=== PATIENT | female | born 1975 | race Caucasian/White ===

== ENCOUNTER 2023-05-07 01:18 | Emergency (ER) | payer OTHER, SELFPAY ==
[2023-05-07] VITALS (8 sets, daily range): BP systolic 128–138; BP diastolic 60–84; PULSE 69–90; RESP 14–22; TEMP 36.3; O2SAT 90–100
--- NOTE | ~2023-05-07 | CT_ITS ---
EXAMINATION: CT abdomen pelvis w con DATE: 05/07/2023 02:21 INDICATION: Generalized abdominal pain. TECHNIQUE: Computed tomography (CT) of the abdomen and pelvis was performed with 100 mL Omnipaque 350 intravenous contrast. Automated exposure control and iterative reconstruction technique were employe d. The dose-length product was 1641.37 mGy-cm. COMPARISON: CT abdomen and pelvis 03/28/23 FINDINGS: The visualized portions of the lung bases demonstrate mild atelectasis. No pleural effusion . The heart size is normal. No pericardial effusion. There is diffuse hepatic steatosis. The gallblad george, spleen, pancreas, adrenal glands, and right kidney are normal. There is a 3 mm stone in left kid afshin. There is an umbilical hernia containing fat. There is a right inguinal hernia containing fat. Th ere are no dilated loops of bowel. The appendix is normal. There are no pathologically enlarged lymph nodes. There is no free intraperitoneal fluid. IMPRESSION: 1. Diffuse hepatic steatosis. 2. Umbilical hernia containing fat. 3. Right inguinal hernia containing fat. Reviewed, dictated and finalized at location E.
[2023-05-07 01:49] LABS: Basophils Absolute Auto 0.1 K/mm3 (0.0-0.1); Basophils Percent Auto 1.2 % (0.2-1.2); Eosinophils Absolute Auto 0.2 K/mm3 (0-0.3); Eosinophils Percent Auto 3.3 % (0-4.4); Hematocrit 45.7 % (37.0-47.0); Hemoglobin 14.8 g/dL (12.0-15.0); Immature Granulocyte Absolute 0.03 K/mm3 (0.00-0.031); Immature Granulocyte Percent A 0.5 % (0-0.5); Lymphocytes Absolute Auto 1.85 K/mm3 (0.9-3.2); Lymphocytes Percent Auto 27.9 % (18.3-44.2); Mean Corpuscular HGB Conc 32.4 g/dl (32-36); Mean Corpuscular Hemoglobin 28.7 pg (26-34); Mean Corpuscular Volume 88.6 fl (80-100); Mean Platelet Volume 10.2 fl (7.4-10.4); Monocytes Absolute Auto 0.5 K/mm3 (0.1-0.6); Monocytes Percent Auto 6.8 % (2.6-8.5); Neutrophils Percent Auto 60.3 % (45.5-73.1); Platelet Count Result 280 k/mm3 (150-375); Red Blood Count 5.16 M/mm3 (4.2-5.4); Red Cell Distribution Width 12.5 % (11.5-14.5); White Blood Count 6.6 K/mm3 (4.5-10.0)
[2023-05-07 01:52] LABS: Appearance Urine Clear (Clear); Bilirubin Urine Negative (Negative); Blood Urine Negative (Negative); Color Urine Yellow (Yellow); Glucose Urine UA Negative (Negative); Ketones Urine Negative (Negative); Leukocyte Esterase Ur Negative LEU/UL (Negative); Nitrate Urine Negative (Negative); Protein Urine Negative (Negative); Specific Grav Ur 1.016 (1.001-1.035); Urobilinogen Urine 0.2 mg/dL (<2.0); pH Urine 5.5 (5.0-9.0)
[2023-05-07] MEDS: MORPHINE SULFATE (*CRX) 4 MG/ML INJ IV PUSH (01:54)
[2023-05-07] MEDS: SODIUM CHLORIDE 0.9% IV 1,000 ML 999 ML IV CONT (01:54)
[2023-05-07] MEDS: PROCHLORPERAZINE EDISYLATE 10 MG/2 ML VIAL IV PUSH (01:55)
[2023-05-07 01:59] LABS: Alanine Aminotransferase 73 U/L (6-35); Albumin Level 4.6 g/dL (3.5-5.1); Alkaline Phosphatase 70 U/L (38-126); Anion Gap 7 mmol/L (8-16); Aspartate Amino Transferase 66 U/L (14-36); Bilirubin,Total 0.5 mg/dL (0.2-1.3); Blood Urea Nitrogen 16 mg/dL (7-17); Calcium 9.6 mg/dL (8.4-10.2); Carbon Dioxide 32 mmol/L (22-30); Chloride 100 mmol/L (98-107); Estimated CRCL calculation 80 ml/min; Estimated Glomerular Filt Rate 60; Glucose 122 mg/dL (65-110); Lipase 206 U/L (23-300); Potassium 4.2 mmol/L (3.4-5.0); Sodium 139 mmol/L (137-145)
[2023-05-07 02:16] LABS: Add Urine Microscopic? NO
--- NOTE | 2023-05-07 02:40 | ED.GENADULT ---
HPI - General Adult General Chief complaint: Abdominal Pain Stated complaint: N/V, abd pain Time Seen by Provider: 05/07/23 01:37 History of Present Illness HPI narrative: Patient 47-year-old female who presents the emergency department with chief complaint of abdominal pain. Patient reports that she started having a discomfort feeling in the right side of her abdomen reports it radiates to her back patient reports she had nausea and vomiting reports has not been able to keep anything down. Patient reports its been ongoing for about a week. Patient denies fever patient does report she has prior history of [employer] surgeries and has had 2 C-sections. Related Data Allergies Allergy/AdvReac Type Severity Reaction Status Date / Time divalproex sodium Allergy Wheezing Verified 05/07/23 01:52 [From Depakote] pregabalin Allergy Other Verified 05/07/23 01:52 amoxicillin AdvReac Hives Verified 05/07/23 01:52 gabapentin AdvReac Nausea and Verified 05/07/23 01:52 Vomiting Review of Systems Review of Systems: A 10 system review of systems was completed on the patient and is negative except for what is stated in the HPI. Nursing and ancillary documentation was reviewed. [facility] Past Medical History Medical History Rectocele Surgical History Surgical History H/O hysterectomy with oophorectomy Social History Social History Smoking status: Never smoker Exam Narrative: GENERAL: Well-appearing, well-nourished, and in no acute distress. HEAD: Normocephalic, atraumatic. EYES: PERRLA and EOMI. ENT: Nares clear, no rhinorrhea or epistaxis. Mucous membranes moist. NECK: Supple. CHEST: Clear to auscultation. No respiratory distress. HEART: Regular rate and rhythm. No murmur heard. Normal peripheral pulses. ABDOMEN: Soft, tenderness to palpation in the right side of the abdomen with right upper quadrant and right lower quadrant, nondistended, normal active bowel sounds. EXTREMITIES: Normal range of motion. No edema. SKIN: Warm, dry, no rash. NEURO: No focal deficits. Alert and oriented x3. PSYCH: Normal mood and affect. Course Vital Signs Vital signs: Vital Signs Temperature 36.3 C L 05/07/23 01:24 Pulse Rate 90 05/07/23 01:24 Respiratory Rate 18 05/07/23 01:24 Blood Pressure 138/84 05/07/23 01:24 Pulse Oximetry 100 05/07/23 01:24 Oxygen Delivery Room Air 05/07/23 01:24 Temperature 36.3 C L 05/07/23 01:24 Pulse Rate 69 05/07/23 02:32 Respiratory Rate 14 05/07/23 02:32 Blood Pressure 134/83 05/07/23 01:36 Pulse Oximetry 90 05/07/23 02:32 Oxygen Delivery Room Air 05/07/23 01:24 Medical Decision Making MDM Narrative Medical decision making narrative: Differential diagnosis include bowel obstruction, gastroenteritis, gastritis. Laboratory studies were obtained and the patient which showed a white count of 6.6 electrolytes were within normal limits AST and ALT were slightly elevated at 66 and 73 respectively lipase was 206 urinalysis showed no evidence of UTI. CT scan of the abdomen pelvis showed IMPRESSION: 1. Diffuse hepatic steatosis. 2. Umbilical hernia containing fat. 3. Right inguinal hernia containing fat Vital Signs Vital Signs: Vital Signs Temperature 36.3 C L 05/07/23 01:24 Pulse Rate 90 05/07/23 01:24 Respiratory Rate 18 05/07/23 01:24 Blood Pressure 138/84 05/07/23 01:24 Pulse Oximetry 100 05/07/23 01:24 Oxygen Delivery Room Air 05/07/23 01:24 Temperature 36.3 C L 05/07/23 01:24 Pulse Rate 69 05/07/23 02:32 Respiratory Rate 14 05/07/23 02:32 Blood Pressure 134/83 05/07/23 01:36 Pulse Oximetry 90 05/07/23 02:32 Oxygen Delivery Room Air 05/07/23 01:24 Lab Data 05/07/23 01:37 05/07/23 01:37
== END 2023-05-07 06:02 | disposition home or self-care (01) ==
PROVIDERS: Emergency Provider Emergency Medicine
DX: R10.84 Generalized abdominal pain (principal); R11.2 Nausea with vomiting, unspecified; Z90.710 Acquired absence of both cervix and uterus; K76.0 Fatty (change of) liver, not elsewhere classified; K42.9 Umbilical hernia without obstruction or gangrene; K40.90 Unilateral inguinal hernia, without obstruction or gangrene, not specified as recurrent
CPT/HCPCS: 36415; 74177; 80053; 81003; 81025; 83690; 85025; 96361; 96374; 96375; 99284; J0780; J2270; J7030; Q9967

== ENCOUNTER 2023-06-30 11:52 | Emergency (ER) | payer OTHER, SELFPAY ==
[2023-06-30] VITALS (21 sets, daily range): BP systolic 103–122; BP diastolic 58–77; PULSE 61–88; RESP 15–36; TEMP 36.3–36.8; O2SAT 94–100
--- NOTE | ~2023-06-30 | CT_ITS ---
EXAMINATION: CTA chest PE abdomen pel DATE: 06/30/2023 15:50 INDICATION: Chest pain and vomiting post gastric bypass procedure TECHNIQUE: Computed tomography (CT) pulmonary angiogram of the chest was performed with 100 mL Omnipa que-350 intravenous contrast. Additional 3D reconstructions utilizing coronal maximum intensity proje ction (MIP) were performed. CT of the abdomen and pelvis was performed with intravenous contrast util izing the same contrast bolus following a short delay. Automated exposure control and iterative recon struction technique were employed. The dose-length product was 2292.10 mGy-cm. COMPARISON: CT abdomen and pelvis dated 05/07/2023 FINDINGS: Chest: No pulmonary embolism. Mild discoid atelectasis in the lingula, right upper and left lower lobes. No pneumonia, pulmonary edema, pleural effusion or pneumothorax. Heart size is normal. No pericardial ef fusion. Thoracic aorta is normal in caliber with no dissection. No pathologically enlarged thoracic l ymphadenopathy. Mild thoracic spondylosis. Abdomen/pelvis: Postoperative change of relatively recent retrocolic Macarena-en-Y gastric bypass procedure including str anding in the subcutaneous fat along likely laparoscopy port tracks. Diffuse hepatic steatosis with m ore focal fat at the ligamentum teres. Gallbladder, pancreas, spleen, right kidney and bilateral adre nal glands are normal. 3 mm nonobstructing left renal stone. Normal appendix. No abnormal bowel wall thickening or obstruction. The uterus is not identified and has likely been surgically resected. Blad george is normal. Small fat-containing right inguinal hernia. Interval repair of the prior fat-containin g umbilical hernia. No intra-abdominal abscess or free intraperitoneal gas or fluid. No pathologicall y enlarged abdominal or pelvic lymphadenopathy. Moderate facet osteoarthritis on the right at L4-L5. Otherwise mild multilevel lumbar facet osteoarthritis. IMPRESSION: 1. Mild scattered bilateral discoid atelectasis. No pulmonary embolism or other acute cardiopulmonary disease. 2. Postoperative changes of recent Macarena-en-Y gastric bypass procedure. 3. 3 mm nonobstructing left renal stone. 4. Diffuse hepatic steatosis. 2. Small fat-containing right inguinal hernia. Reviewed, dictated and finalized at location A.
[2023-06-30 12:49] LABS: Appearance Urine Clear (Clear); Bilirubin Urine Negative (Negative); Blood Urine Negative (Negative); Color Urine Dark Yellow (Yellow); Glucose Urine UA Negative (Negative); Ketones Urine Trace mg/dL (Negative); Leukocyte Esterase Ur Negative LEU/UL (Negative); Nitrate Urine Negative (Negative); Protein Urine Negative (Negative); Specific Grav Ur 1.024 (1.001-1.035); Urobilinogen Urine 0.2 mg/dL (<2.0); pH Urine 5.5 (5.0-9.0)
[2023-06-30 12:54] LABS: Basophils Absolute Auto 0.1 K/mm3 (0.0-0.1); Basophils Percent Auto 1.2 % (0.2-1.2); Eosinophils Absolute Auto 0.3 K/mm3 (0-0.3); Eosinophils Percent Auto 4.2 % (0-4.4); Hematocrit 46.1 % (37.0-47.0); Hemoglobin 14.4 g/dL (12.0-15.0); Immature Granulocyte Absolute 0.01 K/mm3 (0.00-0.031); Immature Granulocyte Percent A 0.2 % (0-0.5); Immature Platelet Fraction Pct 6.9 % (0.9-11.2); Lymphocytes Absolute Auto 1.85 K/mm3 (0.9-3.2); Mean Corpuscular HGB Conc 31.2 g/dl (32-36); Mean Corpuscular Hemoglobin 27.5 pg (26-34); Mean Corpuscular Volume 88.1 fl (80-100); Mean Platelet Volume 11.8 fl (7.4-10.4); Monocytes Absolute Auto 0.4 K/mm3 (0.1-0.6); Monocytes Percent Auto 7.2 % (2.6-8.5); Neutrophils Absolute Auto 3.4 K/mm3 (1.3-6.7); Neutrophils Percent Auto 56.2 % (45.5-73.1); Platelet Count Result 298 k/mm3 (150-375); Red Blood Count 5.23 M/mm3 (4.2-5.4)
[2023-06-30 13:00] LABS: Alanine Aminotransferase 50 U/L (6-35); Albumin Level 4.5 g/dL (3.5-5.1); Alkaline Phosphatase 76 U/L (38-126); Anion Gap 16 mmol/L (8-16); Aspartate Amino Transferase 58 U/L (14-36); Bilirubin,Total 0.7 mg/dL (0.2-1.3); Blood Urea Nitrogen 17 mg/dL (7-17); Calcium 9.8 mg/dL (8.4-10.2); Carbon Dioxide 22 mmol/L (22-30); Chloride 103 mmol/L (98-107); Estimated CRCL calculation 77 ml/min; Estimated Glomerular Filt Rate 60; Glucose 111 mg/dL (65-110); Lipase 309 U/L (23-300); Potassium 4.2 mmol/L (3.4-5.0); Sodium 141 mmol/L (137-145)
[2023-06-30 13:03] LABS: Add Urine Microscopic? NO
[2023-06-30] MEDS: LACTATED RINGERS 1,000 ML 999 ML IV CONT (14:01)
[2023-06-30] MEDS: ONDANSETRON INJ 4 MG/2 ML VIAL IV PUSH (14:01)
[2023-06-30] MEDS: HYDROmorphone HCL INJ (*CRX) 1 MG/ML SYR 0.5 MG IV PUSH (16:15)
--- NOTE | 2023-06-30 16:17 | ED.NAVMDI ---
HPI - Nausea/Vomiting/Diarrhea General Chief complaint: Nausea/Vomiting/Diarrhea Stated complaint: vomiting x 4 days Time Seen by Provider: 06/30/23 13:36 Source: patient, RN notes reviewed and old records reviewed Mode of arrival: ambulatory Limitations: no limitations History of Present Illness HPI Narrative: This is a 47 year old female who presents for evaluation of nausea, vomiting and abdominal pain s/p gastric bypass and hiatal hernia repair. She reports she had gastric bypass and hiatal hernia repair [address] Rankin at [place]. She has been taking multiple vitamins since her surgery. She was taking oxycodone 5 mg but she ran out 5 days ago. She reports for the past 4 days and has been having nausea and vomiting. She states she can not tolerate liquids or purred food. She also reports upper abdominal pain and pain into her chest. She reports she had fever a few days ago. She has been having left side abdominal pain since her surgery 3 weeks ago. She reports her incision sites are healing well and she denies any drainage or redness. Related Data Allergies Allergy/AdvReac Type Severity Reaction Status Date / Time divalproex sodium Allergy Wheezing Verified 05/07/23 01:52 [From Depakote] pregabalin Allergy Other Verified 05/07/23 01:52 amoxicillin AdvReac Hives Verified 05/07/23 01:52 gabapentin AdvReac Nausea and Verified 05/07/23 01:52 Vomiting PMFSH Past Medical History Medical History (Updated 07/01/23 @ 00:00 by Background Daemdaren) Rectocele Surgical History Surgical History (Updated 07/01/23 @ 00:00 by Background Daemon) H/O hysterectomy with oophorectomy S/P gastric bypass Social History Social History Smoking status: Never smoker Exam Const: General: no acute distress and alert Nutritional Appearance: obese Orientation/consciousness: patient oriented x3 HENMT: Head: normal to inspection Face and sinus: normal facial exam Mouth: Yes Normal oral and palatal mucosa present, Yes lip normal and Yes moist mucous membranes Eyes: EOM: EOMs intact bilaterally Chest: Chest palpation & inspection: normal inspection of the chest Resp: Effort & Inspection: normal respiratory effort Auscultation: clear to auscultation bilaterally Cardio: Rate: regular rate Rhythm: regular rhythm Heart sounds: no murmurs GI: GI Palp: Yes Soft to palpation, Yes Tenderness to palpation present (GI) (TTP, left upper abdomen), No Guarding due to palpation present (GI) and No Rigid due to palpation Auscultation: normal bowel sounds Other: healing laparoscopic port incisions, no purulent drainage or erythema Back/Spine/Pelvis: Back: no CVA tenderness Skin: General skin exam: normal color Wounds: wounds noted Neuro: General: patient oriented x3 and moves all extremities Extrem: General: normal to inspection Psych: Mental Status: mental status grossly normal Affect: normal affect Attitude: cooperative Course Reevaluation(s) Reevaluation #1: I discussed with patient my conversation with surgery. She will go back to liquid diet. She has been able tolerate water. She states she does not think she needs to be transferred or admitted at this time. She wants to go home. She will need prescription of zofran. Date: 06/30/23 Time: 17:46 Consultations Consultation #1: I Discussed case with DR. Zayas with [facility] remote control mirror installer for Dr. Rankin. He states nausea is not uncommon. He recommends watching patient a little long and back patient off to stage 1 bariatric diet, liquids, no added sugar. If patient unable to tolerate will transfer for IV hydration Date: 06/30/23 Time: 17:03 Vital Signs Vital signs: Vital Signs Temperature 97.4 F L 06/30/23 11:59 Pulse Rate 88 06/30/23 11:59 Respiratory Rate 16 06/30/23 11:59 Blood Pressure 120/77 06/30/23 11:59 Pulse Oximetry 100 06/30/23 11:59 Oxygen Delivery Room Air 0
== END 2023-06-30 18:17 | disposition home or self-care (01) ==
PROVIDERS: Emergency Medicine; Emergency Provider General Practice
DX: R11.2 Nausea with vomiting, unspecified (principal); Z98.84 Bariatric surgery status
CPT/HCPCS: 36415; 71275; 74177; 80053; 81003; 83690; 85025; 85055; 96361; 96374; 96375; 99284; J1170; J2405; J7120; Q9967

== ENCOUNTER 2023-08-11 20:44 | Emergency (ER) | payer OTHER, SELFPAY ==
--- NOTE | ~2023-08-11 | CT_ITS ---
EXAMINATION: CT abdomen pelvis w con DATE: 08/12/2023 02:40 INDICATION: Recent gastric bypass surgery. Nausea and vomiting. Abdomen pain. TECHNIQUE: Computed tomography (CT) of the abdomen and pelvis was performed without intravenous contr ast. The dose-length product was 1489.93 mGy-cm. Automated exposure control and iterative reconstruct ion technique were employed. COMPARISON: CT dated 06/30/2023. FINDINGS: Lung bases are unremarkable. No significant pleural or pericardial effusion. Heart size nor mal. Fatty infiltration of the liver. There are changes of previous gastric bypass surgery. The splee n, pancreas, adrenal glands and right kidney are unremarkable. There is 3 mm nonobstructing left veto l stone. Bladder is unremarkable. Nonobstructive bowel gas pattern. No evidence for diverticulitis. N o free air or free fluid. Gallbladder is present. No significant vascular abnormality. No lymphadenop athy. Small fat-containing right inguinal hernia. IMPRESSION: 1. No acute abdominal abnormality. Reviewed, dictated and finalized at location A.
[2023-08-11 20:58] VITALS: BP 122/96; PULSE 114; RESP 16; TEMP 36.6; O2SAT 100
[2023-08-11 21:16] LABS: Basophils Absolute Auto 0.1 K/mm3 (0.0-0.1); Basophils Percent Auto 0.9 % (0.2-1.2); Eosinophils Absolute Auto 0.3 K/mm3 (0-0.3); Eosinophils Percent Auto 4.1 % (0-4.4); Hemoglobin 14.8 g/dL (12.0-15.0); Immature Granulocyte Absolute 0.02 K/mm3 (0.00-0.031); Immature Granulocyte Percent A 0.2 % (0-0.5); Lymphocytes Absolute Auto 2.83 K/mm3 (0.9-3.2); Lymphocytes Percent Auto 35.2 % (18.3-44.2); Mean Corpuscular HGB Conc 31.5 g/dl (32-36); Mean Corpuscular Hemoglobin 27.5 pg (26-34); Mean Corpuscular Volume 87.4 fl (80-100); Mean Platelet Volume 10.9 fl (7.4-10.4); Monocytes Absolute Auto 0.7 K/mm3 (0.1-0.6); Monocytes Percent Auto 8.6 % (2.6-8.5); Neutrophils Absolute Auto 4.1 K/mm3 (1.3-6.7); Platelet Count Result 275 k/mm3 (150-375); Red Blood Count 5.38 M/mm3 (4.2-5.4); Red Cell Distribution Width 14.5 % (11.5-14.5)
[2023-08-11 21:30] LABS: Alanine Aminotransferase 141 U/L (6-35); Albumin Level 4.4 g/dL (3.5-5.1); Alkaline Phosphatase 97 U/L (38-126); Anion Gap 10 mmol/L (8-16); Aspartate Amino Transferase 138 U/L (14-36); Bilirubin,Total 0.6 mg/dL (0.2-1.3); Blood Urea Nitrogen 12 mg/dL (7-17); Calcium 9.5 mg/dL (8.4-10.2); Carbon Dioxide 19 mmol/L (22-30); Chloride 108 mmol/L (98-107); Estimated CRCL calculation 80 ml/min; Estimated Glomerular Filt Rate > 60; Glucose 126 mg/dL (65-110); Lipase 178 U/L (23-300); Potassium 3.9 mmol/L (3.4-5.0); Sodium 137 mmol/L (137-145)
[2023-08-11 22:05] LABS: Appearance Urine Cloudy (Clear); Bacteria Urine Rare /hpf; Bilirubin Urine 2+ (Negative); Blood Urine 3+ (Negative); Color Urine Dark Yellow (Yellow); Glucose Urine UA Negative (Negative); Ketones Urine Trace mg/dL (Negative); Leukocyte Esterase Ur Trace LEU/UL (Negative); Need Manual Microscopic Reviewed; Nitrate Urine Negative (Negative); Protein Urine 1+ mg/dL (Negative); RBC Urine 51-100 /hpf (0-2); Specific Grav Ur 1.025 (1.001-1.035); Squamous Epithelial Cell Urine Occasional /hpf (Few)
[2023-08-11 22:06] LABS: Add Urine Microscopic? YES
[2023-08-12] VITALS (20 sets, daily range): BP systolic 103–132; BP diastolic 62–92; PULSE 87–111; RESP 11–20; TEMP 36.9; O2SAT 93–98
[2023-08-12 01:04] LABS: Magnesium 1.8 mg/dL (1.6-2.3)
[2023-08-12 01:13] LABS: Pregnancy On Board Control Positive; Urine Pregnancy Test Negative
[2023-08-12] MEDS: MORPHINE SULFATE (*CRX) 4 MG/ML INJ IV PUSH (01:29)
[2023-08-12] MEDS: SODIUM CHLORIDE 0.9% IV 1,000 ML 999 ML IV CONT (01:29)
[2023-08-12] MEDS: ONDANSETRON INJ 4 MG/2 ML VIAL IV PUSH (01:29)
--- NOTE | 2023-08-12 02:40 | ED.GENADULT ---
HPI - General Adult General Chief complaint: Nausea/Vomiting/Diarrhea Stated complaint: v/d/abd pain sp gastric bypass Time Seen by Provider: 08/12/23 00:43 History of Present Illness HPI narrative: Patient is a 48-year-old female who presents the emergency department with chief complaint of abdominal pain nausea vomiting. The patient reports she had a gastric bypass approximately 8 weeks ago and had a stricture that was ballooned patient reports having vomiting and diarrhea has not really been eating and drinking much and had about 10 episodes of vomiting. Patient reports she has diffuse abdominal discomfort Related Data Allergies Allergy/AdvReac Type Severity Reaction Status Date / Time divalproex sodium Allergy Wheezing Verified 05/07/23 01:52 [From Depakote] pregabalin Allergy Other Verified 08/11/23 21:04 amoxicillin AdvReac Hives Verified 08/11/23 21:04 gabapentin AdvReac Nausea and Verified 08/11/23 21:04 Vomiting Review of Systems Review of Systems: A 10 system review of systems was completed on the patient and is negative except for what is stated in the HPI. Nursing and ancillary documentation was reviewed. PMFSH Past Medical History Medical History Rectocele Surgical History Surgical History H/O hysterectomy with oophorectomy S/P gastric bypass Social History Social History Smoking status: Never smoker Exam Narrative: GENERAL: Well-appearing, well-nourished, and in no acute distress. HEAD: Normocephalic, atraumatic. EYES: PERRLA and EOMI. ENT: Nares clear, no rhinorrhea or epistaxis. Mucous membranes moist. NECK: Supple. CHEST: Clear to auscultation. No respiratory distress. HEART: Regular rate and rhythm. No murmur heard. Normal peripheral pulses. ABDOMEN: Soft, diffusely tender to palpation, nondistended, normal active bowel sounds. EXTREMITIES: Normal range of motion. No edema. SKIN: Warm, dry, no rash. NEURO: No focal deficits. Alert and oriented x3. PSYCH: Normal mood and affect. Course Vital Signs Vital signs: Vital Signs Temperature 36.6 C 08/11/23 20:58 Pulse Rate 114 H 08/11/23 20:58 Respiratory Rate 16 08/11/23 20:58 Blood Pressure 122/96 H 08/11/23 20:58 Pulse Oximetry 100 08/11/23 20:58 Oxygen Delivery Room Air 08/11/23 20:58 Temperature 36.9 C 08/12/23 00:49 Pulse Rate 87 08/12/23 07:08 Respiratory Rate 14 08/12/23 07:08 Blood Pressure 106/62 08/12/23 07:08 Pulse Oximetry 96 08/12/23 07:08 Oxygen Delivery Room Air 08/11/23 20:58 Medical Decision Making MDM Narrative Medical decision making narrative: Differential diagnosis includes dehydration, esophageal stricture, bowel obstruction, Patient received IV hydration in the emergency department laboratory studies showed CMP with CO2 of 19 potassium was 3.9 glucose was 126 liver enzymes are slightly elevated with an AST of 138 ALT of 141 bilirubin was normal at 0.6 urinalysis showed trace ketones 6-[address] scan of the abdomen pelvis showed no evidence of obstructive process. The patient received hydration and antiemetics in the emergency department. Case was discussed with Dr. Castro of the bariatric service at [place]. Recommended having the patient be on clear liquids as she has a appointment scheduled in 3 days for endoscopy at [place]. Vital Signs Vital Signs: Vital Signs Temperature 36.6 C 08/11/23 20:58 Pulse Rate 114 H 08/11/23 20:58 Respiratory Rate 16 08/11/23 20:58 Blood Pressure 122/96 H 08/11/23 20:58 Pulse Oximetry 100 08/11/23 20:58 Oxygen Delivery Room Air 08/11/23 20:58 Temperature 36.9 C 08/12/23 00:49 Pulse Rate 87 08/12/23 07:08 Respiratory Rate 14 08/12/23 07:08 Blood Pressure 106/62 08/12/23
[2023-08-12] MEDS: LORazepam INJ (*CRX) 2 MG/ML VIAL 1 MG IV PUSH (05:38)
[2023-08-12] MEDS: MAGNESIUM SULF 1 GM/D5W 100 ML 1 GM/100 ML BAG IVPB (05:38)
== END 2023-08-12 07:33 | disposition home or self-care (01) ==
PROVIDERS: Emergency Provider Emergency Medicine
DX: R11.2 Nausea with vomiting, unspecified (principal); Z98.84 Bariatric surgery status
CPT/HCPCS: 36415; 74177; 80053; 81001; 81025; 83690; 83735; 85025; 87086; 96361; 96365; 96375; 99284; J2060; J2270; J2405; J3475; J7030; Q9967

== ENCOUNTER 2023-09-04 23:05 | Day surgery (SDC) | payer OTHER, SELFPAY ==
--- NOTE | ~2023-09-04 | CT_ITS ---
Non-contrast CT scan of the Abdomen and Pelvis Clinical indication: Left flank pain Technique: 2.5 mm axial scans were obtained through the abdomen and pelvis without intravenous or or al contrast. Dose reduction technique was used on this scan by utilizing automated exposure control a nd iterative reconstruction technique. The dose-length product (DLP) was 1567.62 mGy-cm. COMPARISON: 08/12/2023 Findings: Images through the lung bases reveal no abnormalities. There is a 3-4 mm stone at the very distal left ureter, with mild left hydroureteronephrosis. No righ t renal or right ureteral stone. No right hydronephrosis. Probable fatty infiltration of liver noted. The spleen, pancreas, gallbladder, and adrenals appear no rmal. There is no aortic aneurysm. There is no evidence of bowel obstruction. There is evidence of prior bariatric surgery. Images through the pelvis were performed. There is no evidence of ascites or lymphadenopathy. Urinary bladder unremarkable. Small fat-containing right inguinal hernia present. Patient is post hysterecto my. No adnexal mass seen. Impression: 3-4 mm distal left ureteral stone with mild left hydroureteronephrosis. Diffuse fatty infiltration of liver. Reviewed, dictated and finalized at [facility]. [employer] Impression: 3-4 mm distal left ureteral stone with mild left hydroureteronephrosis. Diffuse fatty infiltration of liver.
--- NOTE | ~2023-09-04 | XR_ITS ---
EXAMINATION: XR retrograde pyelo w/stent LT DATE: 09/05/2023 8:40 [employer] INDICATION: LEFT SIDE STONE . TECHNIQUE: 5 fluoroscopic images of the abdomen were obtained during left retrograde pyelography with stent performed by the surgeon. I was not present in the operating room. Fluoroscopy exposure time w as 12.4 seconds. Air Kerma 6.57 mGy. DAP 0.11120 mGym2. COMPARISON: CT abdomen pelvis same date FINDINGS: Wire access accomplished to the mid pole calyces. There is mild hydronephrosis on the left. No obstru cting stone visualized. Post Stent images not provided. IMPRESSION: Fluoroscopic documentation of left retrograde pyelography with stent placement. Please refer to the o perative note for complete procedural details . Reviewed, dictated and finalized at location K. [employer] IMPRESSION: Fluoroscopic documentation of left retrograde pyelography with stent placement. Please refer to the operative note for complete procedural details .
[2023-09-04 23:31] VITALS: BP 135/109; PULSE 125; RESP 18; TEMP 36.2; O2SAT 98
[2023-09-05] VITALS (13 sets, daily range): BP systolic 102–141; BP diastolic 54–92; PULSE 81–134; RESP 12–20; TEMP 36.1–36.9; O2SAT 94–100
--- NOTE | 2023-09-05 01:48 | ED.ABDPAIN ---
HPI - Abdominal Pain General Chief Complaint: Urogenital-Female <Sarah Lindsay PA-C - Last Filed: 09/12/23 19:35> Stated Complaint: left flank pain <JAMILA Barnard Last Filed: 09/12/23 19:35> Time Seen by Provider: 09/05/23 01:13 <JAMILA Barnard Last Filed: 09/12/23 19:35> Source: patient <JAMILA Barnard Last Filed: 09/12/23 19:35> Mode of arrival: ambulatory <JAMILA Barnard Last Filed: 09/12/23 19:35> Limitations: no limitations <JAMILA Barnard Last Filed: 09/12/23 19:35> History of Present Illness HPI narrative: This is a 48 year old female that presents to the ER for left flank pain. Ongoing since last night. Associated with nausea and vomiting. Also reports dysuria. Denies fever, or hematuria. <Sarah Lindsay PA-C - Last Filed: 09/12/23 19:35> Related Data Home Medications: Home Medications Medication Instructions Recorded Confirmed calcium citrate 200 mg 1 tablet PO DAILY 09/05/23 09/05/23 calcium-vitamin D3 6.25 mcg (250 unit) tablet cyanocobalamin (vitamin B-12) 1,000 mcg IM MONTHLY 09/05/23 09/05/23 1,000 mcg/mL injection solution cyclobenzaprine 10 mg tablet 10 mg PO DAILY 09/05/23 09/05/23 docusate sodium 100 mg capsule 100 mg PO DAILY PRN Constipation 09/05/23 09/05/23 ferrous sulfate 325 mg (65 mg 325 mg PO DAILY 09/05/23 09/05/23 iron) tablet (FeroSul) promethazine 25 mg tablet 25 mg PO DAILY PRN Nausea 09/05/23 09/05/23 ursodiol 300 mg capsule 300 mg PO DAILY 09/05/23 09/05/23 <JAMILA Barnard Last Filed: 09/12/23 19:35> Allergies/Adverse Reactions: Allergies Allergy/AdvReac Type Severity Reaction Status Date / Time amoxicillin Allergy Hives Verified 09/05/23 07:49 divalproex sodium Allergy Wheezing Verified 09/04/23 23:30 [From Depakote] gabapentin AdvReac Nausea and Verified 09/04/23 23:30 Vomiting pregabalin AdvReac severe Verified 09/05/23 07:49 migraine <Sarah Lindsay PA-C - Last Filed: 09/12/23 19:35> Review of Systems Review of Systems: CONSTITUTIONAL: Denies fever GASTROINTESTINAL: Reports abdominal pain, nausea, vomiting. Denies diarrhea. GENITOURINARY: Reports dysuria. Denies hematuria. <Sarah Lindsay PA-C - Last Filed: 09/12/23 19:35> All systems reviewed & are unremarkable except as noted in HPI and below <Sarah Lindsay PA-C - Last Filed: 09/12/23 19:35> PMFSH Past Medical History Medical History: Medical History (Updated 09/05/23 @ 07:36 by Dusty Williamson MD) History of renal stone Morbid obesity Rectocele <Sarah Lindsay PA-C - Last Filed: 09/12/23 19:35> Surgical History Surgical History: Surgical History H/O hysterectomy with oophorectomy History of section History of gastric bypass Hx of cystoscopy S/P gastric bypass <Sarah Lindsay PA-C - Last Filed: 09/12/23 19:35> Social History Social History: Social History Smoking status: Never smoker <Sarah Lindsay PA-C - Last Filed: 09/12/23 19:35> Exam Narrative: GENERAL: Uncomfortable, well-nourished HEAD: Normocephalic, atraumatic. EYES: EOMI. CHEST: Clear to auscultation. No respiratory distress. No wheezes rales or rhonchi HEART: Regular rate and rhythm. No murmur heard. Normal peripheral pulses. ABDOMEN: Soft, nontender, nondistended, normal active bowel sounds. No CVA tenderness EXTREMITIES: Normal range of motion. No edema. SKIN: Warm, dry, no rash. NEURO: No focal deficits. Alert and oriented x3. PSYCH: Normal mood and affect <Sarah Lindsay PA-C - Last Filed: 09/12/23 19:35> Course Course Emergency Course: Patient updated on workup thus far, care taken over by Dr. Orozco at shift change <Sarah Lindsay PA-C - Last Filed: 09/12/23 19:35> Vital Signs Vital signs: Vital Signs
[2023-09-05] MEDS: MORPHINE SULFATE (*CRX) 4 MG/ML INJ IV PUSH (01:56)
[2023-09-05] MEDS: SODIUM CHLORIDE 0.9% IV 1,000 ML 999 ML IV CONT (01:56)
[2023-09-05] MEDS: ONDANSETRON INJ 4 MG/2 ML VIAL IV PUSH ×2 (01:56→07:43)
[2023-09-05 02:07] LABS: Basophils Absolute Auto 0.1 K/mm3 (0.0-0.1); Basophils Percent Auto 0.9 % (0.2-1.2); Eosinophils Absolute Auto 0.2 K/mm3 (0-0.3); Eosinophils Percent Auto 2.1 % (0-4.4); Hematocrit 46.4 % (37.0-47.0); Immature Granulocyte Absolute 0.02 K/mm3 (0.00-0.031); Immature Granulocyte Percent A 0.2 % (0-0.5); Lymphocytes Absolute Auto 2.14 K/mm3 (0.9-3.2); Lymphocytes Percent Auto 23.9 % (18.3-44.2); Mean Corpuscular HGB Conc 32.3 g/dl (32-36); Mean Corpuscular Hemoglobin 27.9 pg (26-34); Mean Corpuscular Volume 86.2 fl (80-100); Mean Platelet Volume 10.8 fl (7.4-10.4); Monocytes Absolute Auto 0.6 K/mm3 (0.1-0.6); Monocytes Percent Auto 6.7 % (2.6-8.5); Neutrophils Absolute Auto 5.9 K/mm3 (1.3-6.7); Neutrophils Percent Auto 66.2 % (45.5-73.1); Platelet Count Result 276 k/mm3 (150-375); Red Blood Count 5.38 M/mm3 (4.2-5.4); Red Cell Distribution Width 14.9 % (11.5-14.5)
[2023-09-05 02:15] LABS: Alanine Aminotransferase 88 U/L (6-35); Albumin Level 4.7 g/dL (3.5-5.1); Alkaline Phosphatase 90 U/L (38-126); Anion Gap 14 mmol/L (8-16); Aspartate Amino Transferase 75 U/L (14-36); Bilirubin,Total 0.6 mg/dL (0.2-1.3); Blood Urea Nitrogen 15 mg/dL (7-17); Carbon Dioxide 21 mmol/L (22-30); Chloride 106 mmol/L (98-107); Estimated Glomerular Filt Rate 59; Glucose 143 mg/dL (65-110); Lipase 170 U/L (23-300); Sodium 141 mmol/L (137-145)
[2023-09-05 02:28] LABS: Add Urine Microscopic? YES; Appearance Urine Cloudy (Clear); Bacteria Urine 2+ /hpf; Bilirubin Urine Negative (Negative); Blood Urine 2+ (Negative); Calcium Oxalate Crystals Urine Present /hpf; Color Urine Dark Yellow (Yellow); Glucose Urine UA Negative (Negative); Ketones Urine Trace mg/dL (Negative); Leukocyte Esterase Ur Trace LEU/UL (Negative); Need Manual Microscopic Reviewed; Nitrate Urine Negative (Negative); Protein Urine 1+ mg/dL (Negative); RBC Urine >100 /hpf (0-2); Specific Grav Ur 1.024 (1.001-1.035); Squamous Epithelial Cell Urine Few /hpf (Few); pH Urine 5.5 (5.0-9.0)
[2023-09-05] MEDS: HYDROmorphone HCL INJ (*CRX) 1 MG/ML SYR 0.5 MG IV PUSH (02:50)
--- NOTE | 2023-09-05 03:09 | PC.NURSE ---
Pt was pacing around the room and rolling around in the stretcher. Pt's IV was ripped out in the midst of this. New IV placed. Care ongoing.
[2023-09-05] MEDS: KETOROLAC 30 MG/ML VIAL (*BKC) IV PUSH (03:45)
--- NOTE | 2023-09-05 04:46 | PC.NURSE ---
Pt complaining of 8/10 pain, MD aware. No further orders. Care ongoing.
[2023-09-05] MEDS: HYDROmorphone HCL INJ (*CRX) 1 MG/ML SYR IV PUSH (05:23)
[2023-09-05] MEDS: diphenhydrAMINE HCl INJ 50 MG/ML VIAL 25 MG IV PUSH (05:23)
[2023-09-05] MEDS: TAMSULOSIN HCL 0.4 MG CAPSULE PO (06:32)
--- NOTE | 2023-09-05 07:20 | PM.IMHP ---
H&P: HPI History of Present Illness Date/Time: 09/05/23 07:20 Chief Complaint: 3mm left uvj calculus with hydro and pain Narrative: 48 yr old female presented to ER with left flank pain, n/v. No fever. FOund to have a 3 mm left uvj calculus with hydro. Given her significant pain will proceed iwth cystoscopy, left retrograde, left ureteroscopy with stone extraction , stent, possible laser. Review of Systems Review of Systems: All systems reviewed & are unremarkable except as noted in HPI and below [facility] Past Medical History Medical History Rectocele Surgical History Surgical History H/O hysterectomy with oophorectomy S/P gastric bypass Social History Social History Smoking status: Never smoker Meds Home Medications and Allergies Home Medications Medication Instructions Recorded Confirmed Type ondansetron 4 mg disintegrating 4 mg PO Q6H PRN nausea and 06/30/23 Rx tablet vomiting #20 tabs Allergies Allergy/AdvReac Type Severity Reaction Status Date / Time divalproex sodium Allergy Wheezing Verified 09/04/23 23:30 [From Depakote] pregabalin Allergy Other Verified 09/04/23 23:30 amoxicillin AdvReac Hives Verified 09/04/23 23:30 gabapentin AdvReac Nausea and Verified 09/04/23 23:30 Vomiting Vital Signs Vital Signs - 24 hr 09/04/23 23:31 09/05/23 05:00 09/05/23 06:36 Temperature 36.2 C L Pulse Rate 125 H 134 H 125 H Respiratory Rate 18 18 15 Blood Pressure 135/109 H 128/92 H 141/83 H Pulse Oximetry 98 97 98 Oxygen Delivery Room Air Exam Const: General: cooperative; No comfortable HENMT: Head: normal to inspection Neck: Neck: normal visual inspection Resp: Effort & Inspection: normal respiratory effort Cardio: Rate: tachycardic GI: Inspection: normal to inspection H&P: Results Labs Labs: Short CBC 09/05/23 Range/Units 01:57 WBC 9.0 (4.5-10.0) K/mm3 Hgb 15.0 (12.0-15.0) g/dL Hct 46.4 (37.0-47.0) % Plt Count 276 (150-375) k/mm3 BMP 09/05/23 01:57 Sodium 141 Potassium 4.0 Chloride 106 Carbon Dioxide 21 L BUN 15 Creatinine 1.00 Glucose 143 H Calcium 10.0 Liver Function 09/05/23 Range/Units 01:57 Total Bilirubin 0.6 (0.2-1.3) mg/dL AST 75 H (14-36) U/L ALT 88 H (6-35) U/L Alkaline Phosphatase 90 (38-126) U/L Albumin 4.7 (3.5-5.1) g/dL Urine 09/05/23 Range/Units 01:57 Urine Color Dark yellow (Yellow) Urine Appearance Cloudy H (Clear) Urine pH 5.5 (5.0-9.0) Ur Specific [place] 1.024 (1.001-1.035) Urine Protein 1+ H (Negative) mg/dL Urine Glucose (UA) Negative (Negative) mg/dL Assessment and Plan Assessment and plan (1) Left ureteral calculus: Code(s): N20.1 - Calculus of ureter Status: Acute Assessment and Plan: Proceed with cystoscopy, left retrograde, left ureteroscopy with stone extraction, stent , possible laser. (2) Intractable back pain: Code(s): M54.9 - Dorsalgia, unspecified Status: Acute Assessment and Plan: most likely secondary to above
--- NOTE | 2023-09-05 07:26 | WPDHPUPDATE1 ---
History and Physical Update Update Date/Time: 09/05/23 07:26 History and Physical has been reviewed, including an updated exam of the patient. There are NO changes in the patient's condition. Risks, benefits, and alternatives have been discussed and questions answered. Patient agrees to proceed with procedure.
[2023-09-05] MEDS: LACTATED RINGERS 1,000 ML 30 ML IV CONT (07:35)
--- NOTE | 2023-09-05 07:35 | WPDANESEPPF ---
Anes - Initial Pre Proc Eval Procedure: Operation Date: 09/05/23 15:00 Proposed Procedures p Cystoscopy,Left Retrograde Pyelogram,Left Ureteroscopy,Left Stone Extraction,Possible Holmium Laser,Possible Stent Placement - Corbin Gonsales MD Date/Time: 09/05/23 07:35 Surgeon: Corbin Gonsales MD Pre Op Diagnosis: left flank pain Patient Data Age: 48 Gender: F Height: Weight: 110.45 kg Last Vital Signs Temp 36.2 C L 09/04/23 23:31 Pulse 125 H 09/05/23 06:36 Resp 15 09/05/23 06:36 BP 141/83 H 09/05/23 06:36 Pulse Ox 98 09/05/23 06:36 O2 Del Method Room Air 09/04/23 23:31 Allergies Allergy/AdvReac Type Severity Reaction Status Date / Time divalproex sodium Allergy Wheezing Verified 09/04/23 23:30 [From Depakote] pregabalin Allergy Other Verified 09/04/23 23:30 amoxicillin AdvReac Hives Verified 09/04/23 23:30 gabapentin AdvReac Nausea and Verified 09/04/23 23:30 Vomiting Home Medications Medication Instructions Recorded Confirmed Type ondansetron 4 mg disintegrating 4 mg PO Q6H PRN nausea and 06/30/23 Rx tablet vomiting #20 tabs Laboratory Tests 09/05/23 01:57 WBC 9.0 K/mm3 (4.5-10.0) RBC 5.38 M/mm3 (4.2-5.4) Hgb 15.0 g/dL (12.0-15.0) Hct 46.4 % (37.0-47.0) MCV 86.2 fl (80-100) MCH 27.9 pg (26-34) MCHC 32.3 g/dl (32-36) RDW 14.9 H % (11.5-14.5) Plt Count 276 k/mm3 (150-375) MPV 10.8 H fl (7.4-10.4) Immature Gran % (Auto) 0.2 % (0-0.5) Neut % (Auto) 66.2 % (45.5-73.1) Lymph % (Auto) 23.9 % (18.3-44.2) [place] % (Auto) 6.7 % (2.6-8.5) Eos % (Auto) 2.1 % (0-4.4) Baso % (Auto) 0.9 % (0.2-1.2) Lymph # (Auto) 2.14 K/mm3 (0.9-3.2) [place] # (Auto) 0.6 K/mm3 (0.1-0.6) Eos # (Auto) 0.2 K/mm3 (0-0.3) Baso # (Auto) 0.1 K/mm3 (0.0-0.1) Abs Immat Gran (auto) 0.02 K/mm3 (0.00-0.031) Absolute Neuts (auto) 5.9 K/mm3 (1.3-6.7) Absolute Nucleated RBC 0.0 K/mm3 (0.0-0.012) Nucleated RBC % 0.0 % (0.0-0.2) Sodium 141 mmol/L (137-145) Potassium 4.0 mmol/L (3.4-5.0) Chloride 106 mmol/L (98-107) Carbon Dioxide 21 L mmol/L (22-30) Anion Gap 14 mmol/L (8-16) BUN 15 mg/dL (7-17) Creatinine 1.00 mg/dL (0.7-1.0) Estim Creat Clear Calc Not Reportable Estimated GFR 59 (59 - ) Glucose 143 H mg/dL (65-110) Calcium 10.0 mg/dL (8.4-10.2) Total Bilirubin 0.6 mg/dL (0.2-1.3) AST 75 H U/L (14-36) ALT 88 H U/L (6-35) Alkaline Phosphatase 90 U/L (38-126) Total Protein 8.0 g/dL (6.3-8.2) Albumin 4.7 g/dL (3.5-5.1) Lipase 170 U/L (23-300) Urine Color Dark yellow (Yellow) Urine Appearance Cloudy H (Clear) Urine pH 5.5 (5.0-9.0) Ur Specific [place] 1.024 (1.001-1.035) Urine Protein 1+ H mg/dL (Negative) Urine Glucose (UA) Negative mg/dL (Negative) Urine Ketones Trace H mg/dL (Negative) Ur Blood (Man) 2+ H (Negative) Urine Nitrate Negative (Negative) Urine Bilirubin Negative (Negative) Urine Urobilinogen 1.0 mg/dL (<2.0) Add Ur Microanalysis Reviewed Leukocyte Esterase Rfl Trace H BEV/UL (Negative) Urine RBC >100 H /hpf (0-2) Urine WBC 6-10 H /hpf Ur Squamous Epith Cells Few /hpf (Few) Calcium Oxalate Crystal Present /hpf (None) Urine Bacteria 2+ H /hpf Urine Casts 3-5 Patient hx anesthesia problems: none Family hx anesthesia problems: none Results Review: All pre-operative results and documents have been reviewed as part of the pre-operative evaluation. [facility] Past Medical History Medical History (Updated 09/05/23 @ 07:36 by Dusty Williamson MD) History of renal stone Morbid obesity Rectocele Surgical History Surgical History H/O hysterectomy with ooph
[2023-09-05] MEDS: SCOPOLAMINE 1.5 MG PATCH TRANSDERM (07:45)
[2023-09-05] MEDS: fentaNYL CITRATE INJ (*CRX) 100 MCG/2 ML VIAL 25 MCG IV PUSH ×6 (07:56→09:47)
[2023-09-05] MEDS: LIDOCAINE HCL 2% GEL UROJET 10 ML PKG MUCOUS MEM (08:55)
--- NOTE | 2023-09-05 09:04 | W.PM.PROC2 ---
Procedure Note - Detailed Date of Procedure 09/05/23 Pre-op Diagnosis left flank pain Post-op Diagnosis Same Procedure Performed Cystoscopy, left retrograde pyelogram, left ureteroscopy with stone extraction, left ureteral stent placement 4.8 [place] contour Surgeon Corbin Gonsales MD Anesthesia General Description of Procedure Patient is taken to the operative suite correctly identified. Once anesthesia was obtained she was placed in dorsal lithotomy position and prepped and draped usual sterile fashion. Twenty-two [place] scope was inserted the bladder. There were no tumors noted. Left ureteral orifice was cannulated with a guidewire. I dilated the orifice with an 8/10 dilator. Rigid ureteral scope was inserted. Stone was visualized in the distal ureter. Using an escape basket this was retrieved and sent for analysis. Reinspection revealed no residual stone but some edema in the intramural ureter. Pyelogram was then performed to confirm placement of the stent. 4.8 [place] contour stent was then placed with the proximal end coiled in the left renal pelvis and the distal in the bladder. 2% viscous lidocaine was inserted into urethra patient is taken recovery stable condition. She will be discharged home with pain meds and antibiotic. Follow up next week for stent removal. This completes dictation. Please send a copy of this to my office. Estimated Blood Loss 0 Drains Yes Packing No Pathology Yes Complications No immediate complications Condition Stable Disposition PACU
[2023-09-05] MEDS: oxyCODONE HCL (*CRX) 5 MG TAB IR PO (10:51)
[2023-09-05] MEDS: PROCHLORPERAZINE EDISYLATE 10 MG/2 ML VIAL IV PUSH (11:00)
--- NOTE | 2023-09-05 13:38 | SUR.PHASEII ---
disregaurd charting from 1150.
== END 2023-09-05 11:19 | disposition home or self-care (01) ==
LOC: ANHED 09-05 06:41 → ANHSURGERY 09-05 06:42
PROVIDERS: Physician Assistant; Emergency Provider Emergency Medicine; Visit Provider Urology
PROC: (CPT 52352; principal; 2023-09-05 15:00)
DX: N13.2 Hydronephrosis with renal and ureteral calculous obstruction (principal); Z98.84 Bariatric surgery status; E66.01 Morbid (severe) obesity due to excess calories
CPT/HCPCS: 52332; 52352; 36415; 74176; 74420; 80053; 81001; 81025; 82365; 83690; 85025; 87086; 88300; 96361; 96365; 96375; 96376; 99285; A9270; C1758; C1769; C2617; J0330; J0696; J0780; J1100; J1170; J1200; J1885; J2250; J2270; J2405; J2704; J3010; J7030; J7120; Q9966

== ENCOUNTER 2023-10-13 12:34 | Outpatient (CLI) | payer OTHER, SELFPAY ==
--- NOTE | ~2023-10-13 | US_ITS ---
EXAMINATION: US retroperitoneal limited DATE: 10/13/2023 13:05 INDICATION: History of left ureteral stone TECHNIQUE: Multiple grayscale and Doppler ultrasound images of the kidneys were obtained. COMPARISON: CT, 09/05/2023 FINDINGS: The right kidney measures 10.7 x 4.1 x 5.5 cm. The left kidney measures 11.1 x 5.0 x 4.5 cm . The kidneys demonstrate normal parenchymal echogenicity. No urolithiasis is identified. There is no hydronephrosis. The bladder is normal. IMPRESSION: 1. Normal kidneys without hydronephrosis. Reviewed, dictated and finalized at location B. [employer]
== END 2023-10-13 12:35 | disposition home or self-care (01) ==
PROVIDERS: Visit Provider Urology
DX: N20.1 Calculus of ureter (principal)
CPT/HCPCS: 76775

== ENCOUNTER 2023-10-29 17:44 | Emergency (ER) | payer OTHER, SELFPAY ==
--- NOTE | ~2023-10-29 | CT_ITS ---
CT of the Abdomen and Pelvis: Indication: Abdominal pain Technique: 2.5 mm axial scans were obtained through the abdomen and pelvis following intravenous adm inistration of 100 cc of Omnipaque 350. Dose reduction technique was used on this scan by utilizing a utomated exposure control and iterative reconstruction technique. The dose-length product (DLP) was 1 744.37 mGy-cm. COMPARISON: 09/05/2023 Findings: Scans through the lung bases are unremarkable. The liver, spleen, pancreas, gallbladder, adrenals and kidneys are within normal limits. No evidence of aortic aneurysm. No lymphadenopathy. No bowel obstruction or bowel wall thickening. There is evidence of prior gastric bypass surgery. The re is no evidence to suggest acute appendicitis. Very small fat-containing umbilical hernia present. Images through the pelvis were performed. Urinary bladder unremarkable. Patient is status post hyster ectomy. No pelvic mass seen. No ascites. Impression: No acute abnormality. Very small fat-containing umbilical hernia. Reviewed, dictated and finalized at [facility]. WINDER [employer]ENDER Impression: No acute abnormality. Very small fat-containing umbilical hernia.
[2023-10-29 17:50] VITALS: BP 143/105; PULSE 55; RESP 18; TEMP 36.6; O2SAT 98
--- NOTE | 2023-10-29 18:43 | ED.ABDPAIN ---
HPI - Abdominal Pain General Chief Complaint: Abdominal Pain Stated Complaint: abd pain Time Seen by Provider: 10/29/23 18:41 Source: patient Mode of arrival: ambulatory Limitations: no limitations History of Present Illness HPI narrative: This is a 48-year-old postmenopausal (total hysterectomy) female presents with 10 days of LUQ abdominal pain. Patient is 4 months status post gastric bypass and 2 months status post lithotripsy and stent placement. She did notify her primary care physician and her surgeon who performed a gastric bypass and was told to drink more water. She denies the pain radiating in particular although is having some back pain. Last oral intake was a protein bar this morning as well as some milk with sugar free [place]. She denies any urinary symptoms such as hematuria, dysuria, urgency, or frequency. Her last bowel movement was last night and she denies any diarrhea or bloody stools however she feels that her stool output has been diminished as has her degree of flatus. She denies any vaginal discharge. She has been belching today and has been nauseated but not vomiting. She presented to the ED since she became diaphoretic and has been shaking uncontrollably. She is on a multivitamin after gastric bypass as well as nortriptyline. She denies any alcohol or recreational drug use. Related Data Home Medications Medication Instructions Recorded Confirmed calcium citrate 200 mg 1 tablet PO DAILY 09/05/23 09/05/23 calcium-vitamin D3 6.25 mcg (250 unit) tablet cyanocobalamin (vitamin B-12) 1,000 mcg IM MONTHLY 09/05/23 09/05/23 1,000 mcg/mL injection solution cyclobenzaprine 10 mg tablet 10 mg PO DAILY 09/05/23 09/05/23 docusate sodium 100 mg capsule 100 mg PO DAILY PRN Constipation 09/05/23 09/05/23 ferrous sulfate 325 mg (65 mg 325 mg PO DAILY 09/05/23 09/05/23 iron) tablet (FeroSul) promethazine 25 mg tablet 25 mg PO DAILY PRN Nausea 09/05/23 09/05/23 ursodiol 300 mg capsule 300 mg PO DAILY 09/05/23 09/05/23 Allergies Allergy/AdvReac Type Severity Reaction Status Date / Time amoxicillin Allergy Hives Verified 09/05/23 07:49 divalproex sodium Allergy Wheezing Verified 09/04/23 23:30 [From Depakote] gabapentin AdvReac Nausea and Verified 09/04/23 23:30 Vomiting pregabalin AdvReac severe Verified 09/05/23 07:49 migraine PMFSH Past Medical History Medical History (Updated 10/29/23 @ 23:50 by Brooklynn Segura MD) History of renal stone Morbid obesity Rectocele Surgical History Surgical History H/O hysterectomy with oophorectomy History of section History of gastric bypass Hx of cystoscopy S/P gastric bypass Social History Social History (Updated 10/29/23 @ 22:35 by Brooklynn Segura MD) Smoking status: Never smoker Alcohol use details: denies Substance use type: does not use Exam Narrative: GENERAL: Well-appearing, well-nourished, appears shaky/tremulous HEAD: Normocephalic, atraumatic. EYES: Non injected, non icteric ENT: Nares clear, no rhinorrhea or epistaxis. Tongue fasiculations. NECK: Supple. CHEST: Speaking in full sentences. No respiratory distress. HEART: Regular rate and rhythm during exam ABDOMEN: Soft, nondistended. Well healed surgical site in LUQ. TTP at epigastrium and LUQ without rigidity. EXTREMITIES: Normal range of motion. No edema. SKIN: Warm, dry, no rash. NEURO: No focal deficits. Alert and oriented x3. PSYCH: Appears anxious. Course Vital Signs Vital signs: Vital Signs Temperature 98 F 10/29/23 17:50 Pulse Rate 55 L 10/29/23 17:50 Respiratory Rate 18 10/29/23 17:50 Blood Pressure 143/105 H 10/29/23 17:50 Pulse Oximetry 98 10/29/23 17:50 Oxygen Delivery Room Air 10/29/23 17:50 Temperature 97.6 F 10/29/23 22:47 Pulse Rate 81 10/30/23 00:23 Respiratory Rate 15 10/30/23 00:23 Blood Pressure 102/60 01
[2023-10-29 19:07] LABS: Basophils Absolute Auto 0.1 K/mm3 (0.0-0.1); Basophils Percent Auto 0.9 % (0.2-1.2); Eosinophils Absolute Auto 0.2 K/mm3 (0-0.3); Eosinophils Percent Auto 2.2 % (0-4.4); Hematocrit 47.8 % (37.0-47.0); Hemoglobin 15.4 g/dL (12.0-15.0); Immature Granulocyte Absolute 0.02 K/mm3 (0.00-0.031); Immature Granulocyte Percent A 0.3 % (0-0.5); Lymphocytes Percent Auto 33.2 % (18.3-44.2); Mean Corpuscular HGB Conc 32.2 g/dl (32-36); Mean Corpuscular Hemoglobin 28.4 pg (26-34); Monocytes Absolute Auto 0.5 K/mm3 (0.1-0.6); Monocytes Percent Auto 5.9 % (2.6-8.5); Neutrophils Absolute Auto 4.5 K/mm3 (1.3-6.7); Neutrophils Percent Auto 57.5 % (45.5-73.1); Platelet Count Result 328 k/mm3 (150-375); Red Blood Count 5.43 M/mm3 (4.2-5.4); Red Cell Distribution Width 14.6 % (11.5-14.5); White Blood Count 7.8 K/mm3 (4.5-10.0)
[2023-10-29 19:16] VITALS: BP 107/60; PULSE 121; RESP 20; TEMP 37.3; O2SAT 99
[2023-10-29 19:24] LABS: Lactic Acid Reflex 2.8 mmol/L (0.7-2.0)
[2023-10-29 19:25] LABS: Alanine Aminotransferase 42 U/L (6-35); Albumin Level 4.5 g/dL (3.5-5.1); Alkaline Phosphatase 109 U/L (38-126); Anion Gap 13 mmol/L (8-16); Aspartate Amino Transferase 43 U/L (14-36); Bilirubin,Total 0.7 mg/dL (0.2-1.3); Blood Urea Nitrogen 15 mg/dL (7-17); Calcium 10.4 mg/dL (8.4-10.2); Carbon Dioxide 24 mmol/L (22-30); Chloride 103 mmol/L (98-107); Estimated CRCL calculation 77 ml/min; Estimated Glomerular Filt Rate > 60; Glucose 137 mg/dL (65-110); Lipase 145 U/L (23-300); Sodium 140 mmol/L (137-145)
--- NOTE | 2023-10-29 19:26 | ECG_ITS ---
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
[2023-10-29] MEDS: SODIUM CHLORIDE 0.9% IV 1,000 ML 999 ML IV CONT ×2 (20:11→22:44)
[2023-10-29 21:15] LABS: Thyroid Stimulating Hormone 0.938 uIU/mL (0.465-4.680)
[2023-10-29] MEDS: MORPHINE SULFATE (*CRX) 4 MG/ML INJ IV PUSH (21:44)
[2023-10-29 22:05] LABS: Reflex Lactic Acid Yes or No Add Lactic
[2023-10-29] MEDS: HALOPERIDOL LACTATE 5 MG/ML VIAL 2.5 MG IV PUSH (22:20)
[2023-10-29] MEDS: diphenhydrAMINE HCl INJ 50 MG/ML VIAL 25 MG IV PUSH (22:43)
[2023-10-29 22:47] VITALS: BP 111/88; PULSE 84; RESP 15; TEMP 36.4; O2SAT 98
[2023-10-29 23:57] LABS: Appearance Urine Clear (Clear); Bacteria Urine 1+ /hpf; Bilirubin Urine Negative (Negative); Blood Urine Negative (Negative); Color Urine Yellow (Yellow); Glucose Urine UA Negative (Negative); Ketones Urine 2+ mg/dL (Negative); Leukocyte Esterase Ur Negative LEU/UL (Negative); Need Manual Microscopic Reviewed; Nitrate Urine Negative (Negative); Non Pathogenic Casts 0-2; Protein Urine Trace mg/dL (Negative); Squamous Epithelial Cell Urine Occasional /hpf (Few); WBC Urine 0-5 /hpf; pH Urine 8.5 (5.0-9.0)
[2023-10-29 23:58] LABS: Add Urine Microscopic? YES; Specific Grav Ur 1.072 (1.001-1.035)
[2023-10-30 00:01] LABS: Lactic Acid 1.1 mmol/L (0.7-2.0)
[2023-10-30] MEDS: DICYCLOMINE HCL 10 MG CAPSULE PO (00:01)
[2023-10-30 00:10] LABS: Barbiturate Screen Urine Negative (Negative); Benzodiazepines Screen Urine Positive (Negative)
[2023-10-30 00:13] LABS: Amphetamine Screen Urine Negative (Negative); Cannabinoid Screen Urine Negative (Negative); Cocaine Screen Urine Negative (Negative); Methadone Screen Urine Negative (Negative); Opiate Screen Urine Positive (Negative); Phencyclidine Screen Urine Negative (Negative)
[2023-10-30 00:23] VITALS: BP 102/60; PULSE 81; RESP 15; O2SAT 96
== END 2023-10-30 00:25 | disposition home or self-care (01) ==
PROVIDERS: Emergency Provider Student in an Organized Health Care Education/Training Program
DX: R10.12 Left upper quadrant pain (principal); R74.01 Elevation of levels of liver transaminase levels; E66.01 Morbid (severe) obesity due to excess calories; Z68.41 Body mass index [BMI] 40.0-44.9, adult; Z98.84 Bariatric surgery status; Z96.0 Presence of urogenital implants; Z87.442 Personal history of urinary calculi; Z90.710 Acquired absence of both cervix and uterus; R00.0 Tachycardia, unspecified; R94.31 Abnormal electrocardiogram [ECG] [EKG]
CPT/HCPCS: 36415; 74177; 80053; 80307; 81001; 83605; 83690; 84443; 85025; 93005; 96361; 96374; 96375; 99284; A9270; J1200; J1630; J2270; J7030; Q9967

== ENCOUNTER 2024-01-06 18:12 | Emergency (ER) | payer OTHER, SELFPAY ==
[2024-01-06] VITALS (15 sets, daily range): BP systolic 131–144; BP diastolic 74–96; PULSE 80–107; RESP 13–29; TEMP 36.6–37.1; O2SAT 96–100
--- NOTE | ~2024-01-06 | XR_ITS ---
EXAMINATION: XR chest 2V Exam Date/Time: 01/06/2024 21:20 CDT HISTORY: weakness, dizziness, insomnia, hx of gastric bypass x 7 mon Comparison: CTPA 06/30/2023. RESULT: Lines, tubes, and devices: None. Lungs and pleura: Low volumes with crowding. Discoid atelectasis in the right middle lobe. Otherwise clear. Cardiomediastinal silhouette: Stable. Other: No acute osseous or upper abdominal finding. IMPRESSION: No acute cardiopulmonary process. Reviewed, dictated and finalized at location K.
--- NOTE | ~2024-01-06 | CT_ITS ---
EXAMINATION: CT abdomen pelvis w con DATE: 01/06/2024 22:49 INDICATION: Left lower quadrant abdominal pain TECHNIQUE: Computed tomography (CT) of the abdomen and pelvis was performed with 100 mL Omnipaque-350 intravenous contrast. Automated exposure control and iterative reconstruction technique were employe d. The dose-length product was 1166.00 mGy-cm. COMPARISON: 10/29/2023 FINDINGS: Lung bases are clear. Heart size is normal. No pericardial or pleural effusion. Postoperative change of prior gastric bypass procedure. Liver, gallbladder, spleen, pancreas, left kidney and bilateral ad renal glands are normal. 7 mm low-attenuation cyst at the lower pole of the right kidney. No bowel ob struction or abnormal bowel wall thickening. The appendix is not visualized. No pericecal inflammator y change to suggest acute appendicitis. Small fat-containing umbilical and right inguinal hernias. Bl adder is normal. The uterus and ovaries are not identified and absent likely been surgically resected . No free intraperitoneal gas or fluid. No pathologically enlarged abdominal or pelvic lymphadenopath y. L2 bone island. IMPRESSION: 1. No acute intra-abdominal/pelvic process. Reviewed, dictated and finalized at location A.
--- NOTE | 2024-01-06 20:55 | ECG_ITS ---
Measurements Intervals [place] Rate: 98 P: 10 [place]: 145 QRS: -62 QRSD: 83 T: 46 QT: 320 QTc: 409 Interpretive Statements SINUS RHYTHM LEFT AXIS DEVIATION POOR R WAVE PROGRESSION, ANTERIOR LEADS BORDERLINE T WAVE ABNORMALITY- DIFFUSE LEADS BASELINE ARTIFACT- I, II, III, AVR, AVL, AVF, V1-V6 BORDERLINE ECG COMPARED TO ECG 10/29/2023 19:51:38 SINUS RHYTHM NOW PRESENT LEFT-AXIS DEVIATION NOW PRESENT Electronically Signed On 01-06-2024 21:32:25 CDT by Stephen Babin D.O.
[2024-01-06 21:24] LABS: Glucose Point of Care 107 mg/dl (65-105)
[2024-01-06 21:25] LABS: Basophils Absolute Auto 0.1 K/mm3 (0.0-0.1); Basophils Percent Auto 0.9 % (0.2-1.2); Eosinophils Absolute Auto 0.1 K/mm3 (0-0.3); Eosinophils Percent Auto 1.4 % (0-4.4); Hematocrit 43.8 % (37.0-47.0); Hemoglobin 14.5 g/dL (12.0-15.0); Immature Granulocyte Absolute 0.01 K/mm3 (0.00-0.031); Immature Granulocyte Percent A 0.1 % (0-0.5); Lymphocytes Absolute Auto 2.34 K/mm3 (0.9-3.2); Lymphocytes Percent Auto 29.3 % (18.3-44.2); Mean Corpuscular HGB Conc 33.1 g/dl (32-36); Mean Corpuscular Hemoglobin 29.5 pg (26-34); Mean Corpuscular Volume 89.2 fl (80-100); Mean Platelet Volume 10.7 fl (7.4-10.4); Monocytes Absolute Auto 0.5 K/mm3 (0.1-0.6); Monocytes Percent Auto 5.9 % (2.6-8.5); Neutrophils Percent Auto 62.4 % (45.5-73.1); Platelet Count Result 318 k/mm3 (150-375); Red Blood Count 4.91 M/mm3 (4.2-5.4); Red Cell Distribution Width 13.2 % (11.5-14.5)
[2024-01-06 21:30] LABS: Appearance Urine Clear (Clear); Bilirubin Urine Negative (Negative); Blood Urine Negative (Negative); Color Urine Yellow (Yellow); Glucose Urine UA Negative (Negative); Ketones Urine 2+ mg/dL (Negative); Leukocyte Esterase Ur Negative LEU/UL (Negative); Nitrate Urine Negative (Negative); Protein Urine Negative (Negative); Specific Grav Ur 1.024 (1.001-1.035); Urobilinogen Urine 0.2 mg/dL (<2.0); pH Urine 5.5 (5.0-9.0)
[2024-01-06 21:31] LABS: Add Urine Microscopic? NO
[2024-01-06 21:37] LABS: Alanine Aminotransferase 22 U/L (6-35); Albumin Level 4.6 g/dL (3.5-5.1); Alkaline Phosphatase 97 U/L (38-126); Anion Gap 5 mmol/L (8-16); Aspartate Amino Transferase 30 U/L (14-36); Bilirubin,Total 0.5 mg/dL (0.2-1.3); Blood Urea Nitrogen 15 mg/dL (7-17); Calcium 9.8 mg/dL (8.4-10.2); Carbon Dioxide 27 mmol/L (22-30); Chloride 105 mmol/L (98-107); Estimated CRCL calculation 74 ml/min; Estimated Glomerular Filt Rate > 60; Glucose 111 mg/dL (65-110); Potassium 3.7 mmol/L (3.4-5.0); Sodium 137 mmol/L (137-145)
[2024-01-06 22:02] LABS: Influenza A QL RT-PCR Negative (Negative); Influenza B QL RT-PCR Negative (Negative); RSV RNA, RT-PCR Negative (Negative); SARS-CoV-2 RNA PCR Negative (Negative)
[2024-01-06 22:06] LABS: Lipase 164 U/L (23-300); Magnesium 2.2 mg/dL (1.6-2.3)
[2024-01-06] MEDS: SODIUM CHLORIDE 0.9% IV 1,000 ML 999 ML IV CONT (22:19)
[2024-01-06 22:23] LABS: NT Pro B Type Natriuretic Pept < 20 pg/mL (19.9-100)
[2024-01-06 22:34] LABS: Lactic Acid Reflex 0.9 mmol/L (0.7-2.0)
--- NOTE | 2024-01-06 23:19 | ED.GENADULT ---
HPI - General Adult General Chief complaint: Dizziness Stated complaint: multiple complaints Time Seen by Provider: 01/06/24 21:21 History of Present Illness HPI narrative: patient is a 48-year-old female who presents emergency department with chief complaint of multiple complaints. Patient reports that she has been having chills abdominal pain back pain said headaches and just generally feeling unwell. The patient reports the pain is mostly in the left lower quadrant denies vomiting denies diarrhea. The patient reports he went to [facility] who recommended that she come to the emergency department Related Data Home Medications Medication Instructions Recorded Confirmed calcium citrate 200 mg 1 tablet PO DAILY 09/05/23 09/05/23 calcium-vitamin D3 6.25 mcg (250 unit) tablet cyanocobalamin (vitamin B-12) 1,000 mcg IM MONTHLY 09/05/23 09/05/23 1,000 mcg/mL injection solution cyclobenzaprine 10 mg tablet 10 mg PO DAILY 09/05/23 09/05/23 docusate sodium 100 mg capsule 100 mg PO DAILY PRN Constipation 09/05/23 09/05/23 ferrous sulfate 325 mg (65 mg 325 mg PO DAILY 09/05/23 09/05/23 iron) tablet (FeroSul) promethazine 25 mg tablet 25 mg PO DAILY PRN Nausea 09/05/23 09/05/23 ursodiol 300 mg capsule 300 mg PO DAILY 09/05/23 09/05/23 Allergies Allergy/AdvReac Type Severity Reaction Status Date / Time amoxicillin Allergy Hives Verified 01/06/24 18:51 divalproex sodium Allergy Wheezing Verified 01/06/24 18:51 [From Depakote] gabapentin AdvReac Nausea and Verified 01/06/24 18:51 Vomiting pregabalin AdvReac severe Verified 01/06/24 18:51 migraine Review of Systems Review of Systems: A 10 system review of systems was completed on the patient and is negative except for what is stated in the HPI. Nursing and ancillary documentation was reviewed. [facility] Past Medical History Medical History History of renal stone Morbid obesity Rectocele Surgical History Surgical History H/O hysterectomy with oophorectomy History of section History of gastric bypass Hx of cystoscopy S/P gastric bypass Social History Social History Smoking status: Never smoker Alcohol use details: denies Substance use type: does not use Exam Narrative: GENERAL: Well-appearing, well-nourished, and in no acute distress. HEAD: Normocephalic, atraumatic. EYES: PERRLA and EOMI. ENT: Nares clear, no rhinorrhea or epistaxis. Mucous membranes moist. NECK: Supple. CHEST: Clear to auscultation. No respiratory distress. HEART: Regular rate and rhythm. No murmur heard. Normal peripheral pulses. ABDOMEN: Soft, tenderness to palpation left lower quadrant, nondistended, normal active bowel sounds. EXTREMITIES: Normal range of motion. No edema. SKIN: Warm, dry, no rash. NEURO: No focal deficits. Alert and oriented x3. PSYCH: Normal mood and affect. Course Vital Signs Vital signs: Vital Signs Temperature 36.6 C 01/06/24 18:47 Pulse Rate 107 H 01/06/24 18:47 Respiratory Rate 18 01/06/24 18:47 Blood Pressure 144/96 H 01/06/24 18:47 Pulse Oximetry 100 01/06/24 18:47 Oxygen Delivery Room Air 01/06/24 18:47 Temperature 37.1 C 01/06/24 21:11 Pulse Rate 86 01/06/24 23:30 Respiratory Rate 15 01/06/24 23:30 Blood Pressure 134/74 01/06/24 22:21 Pulse Oximetry 100 01/06/24 23:30 Oxygen Delivery Room Air 01/06/24 18:47 Medical Decision Making [facility] Narrative Medical decision making narrative: differential diagnosis includes UTI, viral syndrome, intra-abdominal infection, pyelonephritis, kidney stone, laboratory studies were obtained on the patient which showed a normal CBC electrolytes were within normal limits renal function was normal liver enzymes were normal BNP was neg
[2024-01-07] MEDS: ACETAMINOPHEN 500 MG TABLET 1000 MG PO (00:03)
== END 2024-01-07 01:27 | disposition home or self-care (01) ==
PROVIDERS: Emergency Provider Emergency Medicine
DX: R10.32 Left lower quadrant pain (principal); M79.10 Myalgia, unspecified site; Z20.822 Contact with and (suspected) exposure to COVID-19; E66.01 Morbid (severe) obesity due to excess calories; Z68.39 Body mass index [BMI] 39.0-39.9, adult; Z98.84 Bariatric surgery status; Z87.442 Personal history of urinary calculi; Z90.710 Acquired absence of both cervix and uterus; R94.31 Abnormal electrocardiogram [ECG] [EKG]
CPT/HCPCS: 36415; 71046; 74177; 80053; 82948; 83605; 83690; 83735; 83880; 84145; 85025; 87637; 93005; 96360; 99284; A9270; J7030; Q9967

== ENCOUNTER 2024-01-15 15:37 | Emergency (ER) | payer OTHER, SELFPAY ==
[2024-01-15 16:00] VITALS: BP 131/100; PULSE 110; RESP 20; TEMP 37.4; O2SAT 98
--- NOTE | 2024-01-15 17:48 | ED.RECABL ---
HPI - Recheck/Abnormal Lab/Rx General Chief Complaint: Recheck/Abnormal Lab/Rx Stated Complaint: med side effects- sent by PCP Time Seen by Provider: 01/15/24 17:48 Focused HPI: This is a 48-year-old female who presents to the ED with multiple complaints. Reports that she has having chills, tremors, anxiety, nausea and muscle cramps. Reports that this seemed to have all started after starting naltrexone 4 days ago. She was prescribed this to help with weight loss along with taking her bupropion. She does note that she has p.r.n. oxycodone to take for lumbar stenosis but usually only has to take this once every 6 months. Denies alcohol use. She also reports urinary frequency and recent treatment for of UTI by PCP with [facility]. Denies flank pain, fevers, chills, chest pain, shortness of breath, vomiting, abdominal pain, troubles with bowel movements. GENERAL: Tremulous on exam. Anxious. HEAD: Normocephalic, atraumatic. CHEST: Clear to auscultation. No respiratory distress. HEART: Regular rate and rhythm. NEURO: Alert and oriented x3. Patient screened in triage and initial orders placed. Additional care and disposition to be based upon diagnostic testing and treatment. Related Data Home Medications Medication Instructions Recorded Confirmed calcium citrate 200 mg 1 tablet PO DAILY 09/05/23 09/05/23 calcium-vitamin D3 6.25 mcg (250 unit) tablet cyanocobalamin (vitamin B-12) 1,000 mcg IM MONTHLY 09/05/23 09/05/23 1,000 mcg/mL injection solution cyclobenzaprine 10 mg tablet 10 mg PO DAILY 09/05/23 09/05/23 docusate sodium 100 mg capsule 100 mg PO DAILY PRN Constipation 09/05/23 09/05/23 ferrous sulfate 325 mg (65 mg 325 mg PO DAILY 09/05/23 09/05/23 iron) tablet (FeroSul) promethazine 25 mg tablet 25 mg PO DAILY PRN Nausea 09/05/23 09/05/23 ursodiol 300 mg capsule 300 mg PO DAILY 09/05/23 09/05/23 Allergies Allergy/AdvReac Type Severity Reaction Status Date / Time amoxicillin Allergy Hives Verified 01/06/24 18:51 divalproex sodium Allergy Wheezing Verified 01/06/24 18:51 [From Depakote] gabapentin AdvReac Nausea and Verified 01/06/24 18:51 Vomiting pregabalin AdvReac severe Verified 01/06/24 18:51 migraine PMFSH Past Medical History Medical History History of renal stone Morbid obesity Rectocele Surgical History Surgical History H/O hysterectomy with oophorectomy History of section History of gastric bypass Hx of cystoscopy S/P gastric bypass Social History Social History Smoking status: Never smoker Alcohol use details: denies Substance use type: does not use Course Vital Signs Vital signs: Vital Signs Temperature 99.4 F 01/15/24 16:00 Pulse Rate 110 H 01/15/24 16:00 Respiratory Rate 20 01/15/24 16:00 Blood Pressure 131/100 H 01/15/24 16:00 Pulse Oximetry 98 01/15/24 16:00 Temperature 99.4 F 01/15/24 16:00 Pulse Rate 110 H 01/15/24 16:00 Respiratory Rate 20 01/15/24 16:00 Blood Pressure 131/100 H 01/15/24 16:00 Pulse Oximetry 98 01/15/24 16:00 MDM - Recheck/Abnormal Lab/Rx Lab Data 01/15/24 18:02 01/15/24 18:02 Labs: Lab Results 01/15/24 01/15/24 Range/Units 18:02 18:05 WBC 8.0 (4.5-10.0) K/mm3 RBC 5.21 (4.2-5.4) M/mm3 Hgb 15.2 H (12.0-15.0) g/dL Hct 47.3 H (37.0-47.0) % MCV 90.8 (80-100) fl MCH 29.2 (26-34) pg MCHC 32.1 (32-36) g/dl RDW 13.2 (11.5-14.5) % Plt Count 325 (150-375) k/mm3 MPV 10.9 H (7.4-10.4) fl Immature Gran % (Auto) 0.2 (0-0.5) % Neut % (Auto) 62.9 (45.5-73.1) % Lymph % (Auto) 27.5 (18.3-44.2) % [place] % (Auto) 6.7 (2.6-8.5) % Eos % (Auto) 1.5 (0-4.4) % Baso % (Auto) 1.2 (0.2-1.2) % Lymph # (Auto) 2.21
[2024-01-15] MEDS: METOCLOPRAMIDE HCL INJ 10 MG/2 ML VIAL IV PUSH (18:03)
[2024-01-15 18:11] LABS: Basophils Absolute Auto 0.1 K/mm3 (0.0-0.1); Basophils Percent Auto 1.2 % (0.2-1.2); Eosinophils Absolute Auto 0.1 K/mm3 (0-0.3); Eosinophils Percent Auto 1.5 % (0-4.4); Hematocrit 47.3 % (37.0-47.0); Hemoglobin 15.2 g/dL (12.0-15.0); Immature Granulocyte Absolute 0.02 K/mm3 (0.00-0.031); Immature Granulocyte Percent A 0.2 % (0-0.5); Lymphocytes Absolute Auto 2.21 K/mm3 (0.9-3.2); Lymphocytes Percent Auto 27.5 % (18.3-44.2); Mean Corpuscular HGB Conc 32.1 g/dl (32-36); Mean Corpuscular Hemoglobin 29.2 pg (26-34); Mean Corpuscular Volume 90.8 fl (80-100); Mean Platelet Volume 10.9 fl (7.4-10.4); Monocytes Absolute Auto 0.5 K/mm3 (0.1-0.6); Monocytes Percent Auto 6.7 % (2.6-8.5); Neutrophils Percent Auto 62.9 % (45.5-73.1); Platelet Count Result 325 k/mm3 (150-375); Red Blood Count 5.21 M/mm3 (4.2-5.4); Red Cell Distribution Width 13.2 % (11.5-14.5)
[2024-01-15 18:22] LABS: Alanine Aminotransferase 21 U/L (6-35); Albumin Level 4.8 g/dL (3.5-5.1); Alkaline Phosphatase 96 U/L (38-126); Anion Gap 10 mmol/L (8-16); Aspartate Amino Transferase 32 U/L (14-36); Bilirubin,Total 0.8 mg/dL (0.2-1.3); Blood Urea Nitrogen 16 mg/dL (7-17); Calcium 10.3 mg/dL (8.4-10.2); Carbon Dioxide 25 mmol/L (22-30); Chloride 105 mmol/L (98-107); Creatine Kinase 90 U/L (30-135); Estimated CRCL calculation 69 ml/min; Estimated Glomerular Filt Rate 59; Glucose 127 mg/dL (65-110); Potassium 4.2 mmol/L (3.4-5.0); Sodium 140 mmol/L (137-145)
[2024-01-15 18:23] LABS: Bacteria Urine None Seen /hpf; Non Pathogenic Casts 0-2; Squamous Epithelial Cell Urine Occasional /hpf (Few); WBC Urine 0-5 /hpf (0-3)
--- NOTE | 2024-01-15 18:28 | PC.NURSE ---
patient states she has been waiting too long and left from triage area
[2024-01-15 19:03] LABS: Appearance Urine Clear (Clear); Color Urine Yellow (Yellow)
[2024-01-15 19:04] LABS: Protein Urine Negative (Negative); Specific Grav Ur 1.025 (1.001-1.035); pH Urine 5.5 (5.0-9.0)
[2024-01-15 19:05] LABS: Blood Urine Negative (Negative); Glucose Urine UA Negative (Negative); Ketones Urine 1+ mg/dL (Negative); Nitrate Urine Negative (Negative)
[2024-01-15 19:06] LABS: Add Urine Microscopic? YES; Bilirubin Urine 1+ (Negative); Leukocyte Esterase Ur Negative LEU/UL (Negative)
== END 2024-01-15 23:40 | disposition left against medical advice (07) ==
PROVIDERS: Emergency Provider Physician Assistant
DX: R68.83 Chills (without fever) (principal); R25.1 Tremor, unspecified; R11.0 Nausea; R25.2 Cramp and spasm; T50.7X5A Adverse effect of analeptics and opioid receptor antagonists, initial encounter; M48.061 Spinal stenosis, lumbar region without neurogenic claudication
CPT/HCPCS: 36415; 80053; 81001; 82550; 85025; 96374; 99284; J2765

== ENCOUNTER 2024-03-23 21:24 | Emergency (ER) | payer OTHER, SELFPAY ==
--- NOTE | ~2024-03-23 | CT_ITS ---
EXAMINATION: CT abdomen pelvis wo con DATE: 03/23/2024 22:31 INDICATION: Right flank pain TECHNIQUE: Computed tomography (CT) of the abdomen and pelvis was performed without intravenous contr ast. The dose-length product was 956.82 mGy-cm. Automated exposure control and iterative reconstruction technique were employed. COMPARISON: CT dated 01/06/2024 FINDINGS: Lung bases are unremarkable. No significant pleural or pericardial effusion. There are light ges of Macarena-en-Y gastric bypass. The liver, spleen, pancreas, adrenal glands and right kidney are unr emarkable.. There is a punctate 2 mm nonobstructing left renal stone. No free air or free fluid. No s ignificant vascular abnormality. No lymphadenopathy. Nonobstructive bowel pattern. There are changes of prior hysterectomy. Small fat-containing umbilical hernia. Gallbladder is present. IMPRESSION: 1. No acute abdominal abnormality. Reviewed, dictated and finalized at location B.
[2024-03-23 22:06] LABS: Basophils Absolute Auto 0.1 K/mm3 (0.0-0.1); Eosinophils Absolute Auto 0.2 K/mm3 (0-0.3); Eosinophils Percent Auto 2.7 % (0-4.4); Hematocrit 41.3 % (37.0-47.0); Hemoglobin 13.4 g/dL (12.0-15.0); Immature Granulocyte Absolute 0.02 K/mm3 (0.00-0.031); Immature Granulocyte Percent A 0.3 % (0-0.5); Lymphocytes Absolute Auto 2.63 K/mm3 (0.9-3.2); Lymphocytes Percent Auto 33.5 % (18.3-44.2); Mean Corpuscular HGB Conc 32.4 g/dl (32-36); Mean Corpuscular Hemoglobin 29.1 pg (26-34); Mean Corpuscular Volume 89.6 fl (80-100); Mean Platelet Volume 10.3 fl (7.4-10.4); Monocytes Absolute Auto 0.6 K/mm3 (0.1-0.6); Neutrophils Absolute Auto 4.4 K/mm3 (1.3-6.7); Neutrophils Percent Auto 55.5 % (45.5-73.1); Platelet Count Result 341 k/mm3 (150-375); Red Blood Count 4.61 M/mm3 (4.2-5.4); Red Cell Distribution Width 13.2 % (11.5-14.5); White Blood Count 7.9 K/mm3 (4.5-10.0)
--- NOTE | 2024-03-23 22:08 | ED.BACK ---
HPI - Back Pain/Injury General Chief Complaint: Back Pain/Injury Stated Complaint: back pain Time Seen by Provider: 03/23/24 21:46 Source: patient Mode of arrival: ambulatory Limitations: no limitations History of Present Illness HPI Narrative: Rebeca is a 48-year-old female patient presenting to emergency room today with complaints of right-sided back pain. She reports she feels as other something behind her rib and the pain is radiating into her abdomen. She states the pain is sharp and stabbing. Currently rates her pain 8/10. States she has just gotten off narcotic pain medication last week for left-sided back pain with sciatica. Is concerned about having a UTI. States she is having urinary frequency and urgency but no burning with urination. Related Data Home Medications Medication Instructions Recorded Confirmed calcium citrate 200 mg 1 tablet PO DAILY 09/05/23 09/05/23 calcium-vitamin D3 6.25 mcg (250 unit) tablet cyanocobalamin (vitamin B-12) 1,000 mcg IM MONTHLY 09/05/23 09/05/23 1,000 mcg/mL injection solution cyclobenzaprine 10 mg tablet 10 mg PO DAILY 09/05/23 09/05/23 docusate sodium 100 mg capsule 100 mg PO DAILY PRN Constipation 09/05/23 09/05/23 ferrous sulfate 325 mg (65 mg 325 mg PO DAILY 09/05/23 09/05/23 iron) tablet (FeroSul) promethazine 25 mg tablet 25 mg PO DAILY PRN Nausea 09/05/23 09/05/23 ursodiol 300 mg capsule 300 mg PO DAILY 09/05/23 09/05/23 Allergies Allergy/AdvReac Type Severity Reaction Status Date / Time amoxicillin Allergy Hives Verified 01/06/24 18:51 divalproex sodium Allergy Wheezing Verified 01/06/24 18:51 [From Depakote] gabapentin AdvReac Nausea and Verified 01/06/24 18:51 Vomiting pregabalin AdvReac severe Verified 01/06/24 18:51 migraine Review of Systems Review of Systems: Pertinent positives per HPI. Patient denies any fever, chills, rash, headache, visual changes, dizziness, cough, runny nose, sore throat, shortness of breath, chest pain, palpitations, nausea, vomiting, diarrhea, constipation. [facility] Past Medical History Medical History History of renal stone Morbid obesity Rectocele Surgical History Surgical History H/O hysterectomy with oophorectomy History of section History of gastric bypass Hx of cystoscopy S/P gastric bypass Social History Social History Smoking status: Never smoker Alcohol use details: denies Substance use type: does not use Comments At the time of my signature, I reviewed and agree with the nursing past medical, surgical, social, and family history. There is no relevant family history pertinent to the patient complaint. Exam Narrative: General: Well-developed, well nourished, in no apparent distress. Head: Normocephalic, atraumatic. Cardio: Regular rate and rhythm, s1 and s2 normal, no murmur appreciated. Resp: Clear to auscultation bilaterally, no rhonchi, rales, wheezing or rubs. Abdomen: Soft, pliable, bowel sounds present in all quadrants, right upper quadrant tender to palpation, no organomegly, right CVAT tenderness. Course Course Emergency Course: Portions of this record may have been created with voice recognition software. Vital Signs Vital signs: Vital signs reviewed MDM - Back Pain/Injury MDM Narrative Medical decision making narrative: At the time of visit patient is resting comfortably on the exam table. Patient appears to be nontoxic. Labs: CBC is unremarkable, chemistry panel is unremarkable, urinalysis shows trace of leukocytes, 3-5 red blood cells and 6-10 white blood cells with no bacteria is seen. Diagnostics: CT shows no obstruction, no free air, mild fecal retention, hysterectomy Plan: I suspect patient has right flank pain with possible UTI. Prescription for 3
[2024-03-23 22:16] LABS: Alanine Aminotransferase 15 U/L (6-35); Albumin Level 4.3 g/dL (3.5-5.1); Alkaline Phosphatase 100 U/L (38-126); Anion Gap 8 mmol/L (4-12); Aspartate Amino Transferase 24 U/L (14-36); Bilirubin,Total 0.4 mg/dL (0.2-1.3); Blood Urea Nitrogen 18 mg/dL (7-17); Calcium 9.4 mg/dL (8.4-10.2); Carbon Dioxide 26 mmol/L (22-30); Chloride 105 mmol/L (98-107); Estimated CRCL calculation 65 ml/min; Estimated Glomerular Filt Rate 59; Glucose 91 mg/dL (65-110); Sodium 139 mmol/L (137-145)
[2024-03-23 22:50] LABS: Appearance Urine Clear (Clear); Bacteria Urine None Seen /hpf; Bilirubin Urine Negative (Negative); Blood Urine Negative (Negative); Color Urine Yellow (Yellow); Glucose Urine UA Negative (Negative); Ketones Urine Negative (Negative); Leukocyte Esterase Ur Trace LEU/UL (Negative); Need Manual Microscopic Reviewed; Nitrate Urine Negative (Negative); Non Pathogenic Casts 0-2; Protein Urine Negative (Negative); Specific Grav Ur 1.024 (1.001-1.035); Squamous Epithelial Cell Urine None Seen /hpf (Few); pH Urine 5.5 (5.0-9.0)
[2024-03-23 22:51] LABS: Add Urine Microscopic? YES
--- NOTE | 2024-03-23 23:07 | PC.NURSE ---
this rn assumed care of patient. this rn took patient report from nicolas velazquez .
[2024-03-24] MEDS: ACETAMINOPHEN 500 MG TABLET 1000 MG (00:18)
[2024-03-24 01:45] VITALS: BP 164/87; PULSE 84; RESP 12; O2SAT 100
== END 2024-03-24 01:44 | disposition home or self-care (01) ==
PROVIDERS: Emergency Medicine; Emergency Provider Nurse Practitioner Family; PCP Family Medicine
DX: N30.00 Acute cystitis without hematuria (principal); R10.9 Unspecified abdominal pain; Z87.442 Personal history of urinary calculi
CPT/HCPCS: 36415; 74176; 80053; 81001; 85025; 87086; 99284; A9270

== ENCOUNTER 2024-05-02 13:25 | Observation (INO) | payer OTHER, SELFPAY ==
[2024-05-02] VITALS (11 sets, daily range): BP systolic 99–141; BP diastolic 71–100; PULSE 83–128; RESP 14–31; TEMP 36.4–36.6; O2SAT 96–100; BMI 39.8
--- NOTE | ~2024-05-02 | XR_ITS ---
EXAMINATION: XR chest 1V portable DATE: 05/02/2024 14:52 INDICATION: Shortness of breath. TECHNIQUE: A single frontal view of the chest was obtained on 2 radiographs. COMPARISON: Chest 2 views 01/06/2024, CT abdomen and pelvis 03/23/2024 FINDINGS: There is no pneumonia, pleural effusion, or pneumothorax. The heart size is normal. IMPRESSION: 1. No acute cardiopulmonary disease. Reviewed, dictated and finalized at location E.
--- NOTE | 2024-05-02 13:44 | ECG_ITS ---
Test Date: 2024-05-02 14:57:08 Measurements Intervals [place] Rate: 97 P: 15 [place]: 130 QRS: 253 QRSD: 85 T: 35 QT: 363 QTc: 462 Interpretive Statements SINUS RHYTHM RIGHT AXIS DEVIATION PATTERN CONSISTENT WITH PULMONARY DISEASE POSSIBLE RIGHT VENTRICULAR HYPERTROPHY BORDERLINE T WAVE ABNORMALITY- ANT/INF LEADS BASELINE ARTIFACT- I, II, III, AVL, AVF, V6 BORDERLINE ECG No previous ECG available for comparison Electronically Signed On 05-02-2024 15:12:27 CDT by Stephen Babin D.O.
--- NOTE | 2024-05-02 13:49 | PC.NURSE ---
Unable to obtain EKG at this time. Pt extremely anxious and unable to lay still long enough to obtain EKG
--- NOTE | 2024-05-02 13:53 | ED.SOB ---
HPI - SOB/Dyspnea General Chief Complaint: Shortness of Breath/Dyspnea Stated Complaint: dyspnea/anxiety Time Seen by Provider: 05/02/24 13:52 Source: patient and EMS Mode of arrival: EMS Limitations: no limitations History of Present Illness HPI Narrative: 48 YEARS OLD WHITE FEMALE CAME TO THE EMERGENCY ROOM BY AMBULANCE FROM HOME BECAUSE OF SHORTNESS OF BREATH THAT STARTED AT 6:00 A.M. AND GRADUALLY GETTING WORSE. HISTORY OF HYPOTHYROIDISM AND ANXIETY. PATIENT'S REPORTED THAT PATIENT NEVER HAD SIMILAR SYMPTOMS IN THE PAST. PATIENT REPORT THAT SHE RECEIVED HER PRESCRIBED XANAX AT 8:00 A.M. TODAY. SHE DENIES ANY CHEST PAIN OR ANY OTHER SYMPTOMS EXCEPT SEVERE SHORTNESS OF BREATH. Related Data Home Medications Medication Instructions Recorded Confirmed calcium citrate 200 mg 1 tablet PO DAILY 09/05/23 09/05/23 calcium-vitamin D3 6.25 mcg (250 unit) tablet cyanocobalamin (vitamin B-12) 1,000 mcg IM MONTHLY 09/05/23 09/05/23 1,000 mcg/mL injection solution cyclobenzaprine 10 mg tablet 10 mg PO DAILY 09/05/23 09/05/23 docusate sodium 100 mg capsule 100 mg PO DAILY PRN Constipation 09/05/23 09/05/23 ferrous sulfate 325 mg (65 mg 325 mg PO DAILY 09/05/23 09/05/23 iron) tablet (FeroSul) promethazine 25 mg tablet 25 mg PO DAILY PRN Nausea 09/05/23 09/05/23 ursodiol 300 mg capsule 300 mg PO DAILY 09/05/23 09/05/23 Allergies Allergy/AdvReac Type Severity Reaction Status Date / Time amoxicillin Allergy Hives Verified 05/02/24 15:49 divalproex sodium Allergy Hives Verified 05/02/24 15:49 [From Depakote] gabapentin AdvReac Nausea and Verified 05/02/24 15:49 Vomiting NSAIDS (Non-Steroidal AdvReac Unknown Verified 05/02/24 19:14 Anti-Inflamma pregabalin AdvReac severe Verified 05/02/24 15:49 migraine Review of Systems Review of Systems: All systems reviewed & are unremarkable except as noted in HPI and below PMFSH Past Medical History Medical History (Updated 05/02/24 @ 16:00 by Robbie Bishop MD) History of renal stone Morbid obesity Rectocele Surgical History Surgical History (Updated 05/02/24 @ 15:49 by Senthil Kraus) H/O hysterectomy with oophorectomy History of section History of gastric bypass Hx of cystoscopy S/P gastric bypass Social History Social History (System 05/02/24 @ 15:49 by Senthil Kraus) Smoking status: Never smoker Alcohol use details: denies Substance use type: does not use Exam Narrative: GENERAL APPEARANCE: WELL-DEVELOPED, WELL-NOURISHED, HYPERVENTILATING, RESTLESS WITH CARPOPEDAL SPASM SKIN: WARM HEAD: NORMOCEPHALIC, NONTRAUMATIC EYES: CLEAR CONJUNCTIVA ENT: OROPHARYNX, DRY ORAL CAVITY NECK: SUPPLE, NONTENDER CHEST AND RESPIRATORY: AIRWAY PATENT, HYPERVENTILATING HEART: TACHYCARDIA ABDOMEN: SOFT, NONTENDER, NO ORGANOMEGALY, QUIET BOWEL SOUNDS VASCULAR: NORMAL PERIPHERAL PULSES, NORMAL CAPILLARY REFILL. MUSCULOSKELETAL: PATIENT UNABLE TO FOLLOW ANY VERBAL COMMANDS BECAUSE OF THE HYPERVENTILATION AND RESTLESSNESS NEUROLOGIC: ALERT, UNABLE TO ANSWER QUESTION BECAUSE OF THE HYPERVENTILATION Course Vital Signs Vital signs: Vital Signs Temperature 36.4 C L 05/02/24 13:35 Pulse Rate 128 H 05/02/24 13:35 Respiratory Rate 26 H 05/02/24 13:35 Blood Pressure 141/100 H 05/02/24 13:35 Pulse Oximetry 98 05/02/24 13:35 Oxygen Delivery Room Air 05/02/24 13:35 Temperature 36.5 C 05/02/24 18:32 Pulse Rate 121 H 05/02/24 18:32 Respiratory Rate 14 05/02/24 18:32 Blood Pressure 99/71 L 05/02/24 18:32 Pulse Oximetry 99 05/02/24 18:32 Oxygen Delivery Room Air 05/02/24 13:50 MDM - SOB/Dyspnea MDM Narrative
[2024-05-02 13:58] LABS: Basophils Absolute Auto 0.1 K/mm3 (0.0-0.1); Eosinophils Absolute Auto 0.2 K/mm3 (0-0.3); Eosinophils Percent Auto 1.7 % (0-4.4); Hematocrit 45.1 % (37.0-47.0); Hemoglobin 15.2 g/dL (12.0-15.0); Immature Granulocyte Absolute 0.02 K/mm3 (0.00-0.031); Immature Granulocyte Percent A 0.2 % (0-0.5); Lymphocytes Absolute Auto 4.24 K/mm3 (0.9-3.2); Lymphocytes Percent Auto 45.2 % (18.3-44.2); Mean Corpuscular HGB Conc 33.7 g/dl (32-36); Mean Corpuscular Hemoglobin 29.2 pg (26-34); Mean Corpuscular Volume 86.6 fl (80-100); Mean Platelet Volume 10.6 fl (7.4-10.4); Monocytes Absolute Auto 0.5 K/mm3 (0.1-0.6); Monocytes Percent Auto 5.3 % (2.6-8.5); Neutrophils Absolute Auto 4.4 K/mm3 (1.3-6.7); Neutrophils Percent Auto 46.6 % (45.5-73.1); Platelet Count Result 387 k/mm3 (150-375); Red Blood Count 5.21 M/mm3 (4.2-5.4); Red Cell Distribution Width 13.2 % (11.5-14.5); White Blood Count 9.4 K/mm3 (4.5-10.0)
[2024-05-02 14:07] LABS: Alanine Aminotransferase 19 U/L (6-35); Albumin Level 4.9 g/dL (3.5-5.1); Alkaline Phosphatase 113 U/L (38-126); Anion Gap 14 mmol/L (4-12); Aspartate Amino Transferase 33 U/L (14-36); Bilirubin,Total 0.6 mg/dL (0.2-1.3); Blood Urea Nitrogen 18 mg/dL (7-17); Carbon Dioxide 20 mmol/L (22-30); Chloride 107 mmol/L (98-107); Estimated CRCL calculation 73 ml/min; Estimated Glomerular Filt Rate > 60; Glucose 131 mg/dL (65-110); Sodium 141 mmol/L (137-145)
[2024-05-02 14:19] LABS: Alveolar/Arterial O2 Gradient 23.9 mmHg; Fractional Inspired Oxygen 21 %; Oxygen Content ABG 21.3 %vol (16.0-22.0); Oxyhemoglobin 98.6 % THb (90.0-100.0); PO2 ABG 113.7 mmHg (80.0-100.0); PO2 FiO2 Ratio Arterial Blood 5.41 %; Total Hemoglobin 15.3 g/dL (12.0-18.0)
[2024-05-02 14:31] LABS: D Dimer 0.45 ug/mL (<0.48)
[2024-05-02 14:42] LABS: NT Pro B Type Natriuretic Pept 48 pg/mL (19.9-100)
[2024-05-02 14:48] LABS: pH ABG > 7.700 (7.350-7.450)
[2024-05-02 14:49] LABS: Device ROOM AIR; PCO2 ABG 10.1 mmHg (35.0-45.0); Site Drawn LEFT RADIAL
[2024-05-02] MEDS: LORazepam INJ (*CRX) 2 MG/ML VIAL 1 MG IV PUSH ×4 (14:50→18:39)
[2024-05-02 17:54] LABS: Alveolar/Arterial O2 Gradient 131.9 mmHg; Fractional Inspired Oxygen 35 %; HCO3 ABG 20.2 mEq/l (22.0-26.0); Oxygen Content ABG 19.9 %vol (16.0-22.0); Oxygen Saturation ABG 98.5 % (95.0-100.0); Oxyhemoglobin 97.8 % THb (90.0-100.0); PO2 ABG 95.8 mmHg (80.0-100.0); PO2 FiO2 Ratio Arterial Blood 2.74 %; Total Hemoglobin 14.4 g/dL (12.0-18.0)
[2024-05-02 17:58] LABS: PCO2 ABG 18.8 mmHg (35.0-45.0)
[2024-05-02 17:59] LABS: Device VENTURI MASK; Site Drawn LEFT RADIAL
[2024-05-02] MEDS: SODIUM CHLORIDE 0.9% IV 1,000 ML 999 ML IV CONT (18:48)
[2024-05-02] MEDS: methylPREDNISolone SOD SUCC 125 MG VIAL IV PUSH (18:49)
[2024-05-02] MEDS: diphenhydrAMINE HCl INJ 50 MG/ML VIAL IV PUSH (18:51)
--- NOTE | 2024-05-02 19:35 | PM.IMHP ---
H&P: HPI History of Present Illness Date/Time: 05/02/24 19:35 Chief Complaint: sob Narrative: This is a 48-year-old female with past medical history significant for morbid obesity status post gastric bypass, generalized anxiety, depression disorder. patient was brought to the emergency room due to shortness of breath she had a several day complains as well as changes in her face stated that her face was swollen watermelon to make it go away workup and was short of breath breathing fast. Was brought to the emergency room for evaluation. Had been in her usual state of health up until this point denies any fevers, rigors, chills no new medications although she was taken off of her citalopram and started on tizanidine, denies overdose, EXAMINATION: XR chest 1V portable DATE: 05/02/2024 14:52 INDICATION: Shortness of breath. TECHNIQUE: A single frontal view of the chest was obtained on 2 radiographs. COMPARISON: Chest 2 views 01/06/2024, CT abdomen and pelvis 03/23/2024 FINDINGS: There is no pneumonia, pleural effusion, or pneumothorax. The heart size is normal. IMPRESSION: 1. No acute cardiopulmonary disease. Review of Systems Review of Systems: sob Constitutional: Constitutional: Denies chills, Denies fatigue, Denies fever(s), Denies malaise and Denies night sweats Eyes: Eyes: Denies change in vision ENT: Denies dysphagia and Denies odynophagia Cardiovascular: Cardiovascular: Denies chest pain and Denies syncope Respiratory: Respiratory: Denies chest congestion and Denies cough Gastrointestinal: Gastrointestinal: Denies abdominal pain, Denies dyspepsia, Denies diarrhea, Denies nausea and Denies vomiting Genitourinary: Genitourinary: Denies dysuria Musculoskeletal: Musculoskeletal: Denies myalgias Neurologic: Denies focal weakness and Denies Sensory deficit (Neuro) Psychiatric: Psychiatric: Reports no additional psychiatric complaints and Reports as per HPI Endocrine: Endocrine: Denies cold intolerance, Denies heat intolerance, Denies polyphagia, Denies polydipsia, Denies polyuria and Denies palpitations Hematologic/Lymphatic: Hematologic/Lymphatic: Reports no additional hematologic/lymphatic complaints and Reports as per HPI Allergic/Immunologic: Allergic/Immunologic: Reports no additional allergic/immunologic complaints and Reports as per HPI [facility] Past Medical History Medical History (Updated 05/03/24 @ 00:33 by Carmen Rebollar MD) History of renal stone Morbid obesity Rectocele Surgical History Surgical History (Updated 05/02/24 @ 15:49 by Senthil Kraus) H/O hysterectomy with oophorectomy History of section History of gastric bypass Hx of cystoscopy S/P gastric bypass Family History Family History (Updated 05/02/24 @ 22:20 by Allison Hawkins RN) Mother Hodgkin disease Father Lung cancer Other Patient's father is Patient's mother is Social History Social History (System 05/02/24 @ 15:49 by Senthil Kraus) Smoking status: Never smoker Alcohol intake: never Alcohol use details: denies Substance use: never Substance use type: does not use Do You Feel Safe in your Home?: Yes Lack of Transportation: No Lack of Food: Never True Current Housing: I Have Housing Concerned About Future Housing: No Difficulty Paying Gas/Electric Bills: No Difficulty Paying for Meds: No Currently Unemployed: No Education: High School Diploma/GED Difficulty w/ Childcare or Family Care: No Spiritual care concerns: No Meds Home Medications and Allergies Home Medications Medication Instructions Recorded Confirmed Type cyanocobalamin (vitamin B-12) 1,000 mcg IM MONTHLY 09/05/23 05/02/24 History 1,000 mcg/mL injection solution alprazolam 0.25 mg tablet 0.25 mg PO TID 05/02/24 05/02/24 History duloxetine 60 mg capsule,delayed 60 mg PO HS 05/02/24 05/02/24 History release metformin 500 mg tablet 500 mg PO BID 05/02/24
[2024-05-02 19:40] LABS: Appearance Urine Clear (Clear); Bacteria Urine 4+ /hpf; Bilirubin Urine Negative (Negative); Blood Urine Negative (Negative); Color Urine Yellow (Yellow); Glucose Urine UA Negative (Negative); Ketones Urine 2+ mg/dL (Negative); Leukocyte Esterase Ur 1+ LEU/UL (Negative); Nitrate Urine Negative (Negative); Non Pathogenic Casts 0-2; Protein Urine Trace mg/dL (Negative); Specific Grav Ur 1.018 (1.001-1.035); Squamous Epithelial Cell Urine Moderate /hpf (Few); pH Urine >=9.0 (5.0-9.0)
[2024-05-02] MEDS: ACETAMINOPHEN 500 MG TABLET 1000 MG PO (19:41)
[2024-05-02 19:49] LABS: Add Urine Microscopic? YES
[2024-05-02 19:49] LABS: Negative Monotest Control Negative (Negative); Positive Monotest Control Positive (Positive)
[2024-05-02 19:49] LABS: Lactic Acid Reflex 2.2 mmol/L (0.7-2.0)
[2024-05-02 19:50] LABS: Partial Thromboplastin Time 22.8 Seconds (22.3-36.8); Prothrombin Time 13.2 Seconds (11.1-14.7)
[2024-05-02 19:53] LABS: Amphetamine Screen Urine Negative (Negative); Barbiturate Screen Urine Negative (Negative); Benzodiazepines Screen Urine Negative (Negative); Cannabinoid Screen Urine Negative (Negative); Cocaine Screen Urine Negative (Negative); Methadone Screen Urine Negative (Negative); Opiate Screen Urine Negative (Negative); Phencyclidine Screen Urine Negative (Negative)
[2024-05-02 19:53] LABS: CRP < 0.5 mg/dL (<1.0)
[2024-05-02 19:54] LABS: Monoscreen Negative (Negative)
[2024-05-02 20:02] LABS: Strep Group A RT-PCR NOT DETECTED (Negative)
[2024-05-02 20:13] LABS: Influenza A QL RT-PCR Negative (Negative); Influenza B QL RT-PCR Negative (Negative); RSV RNA, RT-PCR Negative (Negative); SARS-CoV-2 RNA PCR Negative (Negative)
--- NOTE | 2024-05-02 22:06 | ADMGEN ---
This patient, Rebeca Huber, was admitted to Medical Room 340-01. Patient/family oriented to hospital policies and general routines including ID bracelet, bed and alarms, visiting hours, pain management, procedures, bathroom and other care routines, personal items, smoking policy, room service/diet, and visiting hours. Information on how to activate the Rapid Response Team has been discussed. Patient/Family are encouraged to report perceived risks to care and to ask questions if they do not understand what they are told or what they should do.
[2024-05-02 22:35] LABS: Reflex Lactic Acid Yes or No Add Lactic
[2024-05-02] MEDS: SODIUM CHLORIDE 0.9% IV 1,000 ML 125 ML IV CONT (22:43)
[2024-05-02 23:28] LABS: Lactic Acid 2.2 mmol/L (0.7-2.0)
[2024-05-03] VITALS: PULSE 96
[2024-05-03] MEDS: LORazepam INJ (*CRX) 2 MG/ML VIAL 1 MG IV PUSH (00:58)
[2024-05-03] MEDS: traZODone HCL 50 MG TABLET 100 MG PO (00:58)
[2024-05-03] MEDS: TIZANIDINE HCL 4 MG TABLET PO (00:58)
[2024-05-03] MEDS: DULoxetine HCL 60 MG CAPSULE.DR PO (00:58)
[2024-05-03 04:00] VITALS: PULSE 62
[2024-05-03 05:32] LABS: Alveolar/Arterial O2 Gradient 43.6 mmHg; Base Excess ABG -1.6 mEq/l (+/-2.0); Fractional Inspired Oxygen 21 %; HCO3 ABG 21.6 mEq/l (22.0-26.0); Oxygen Content ABG 18.5 %vol (16.0-22.0); Oxygen Saturation ABG 94.3 % (95.0-100.0); Oxyhemoglobin 93.4 % THb (90.0-100.0); PCO2 ABG 32.4 mmHg (35.0-45.0); PO2 ABG 67.3 mmHg (80.0-100.0); Total Hemoglobin 14.1 g/dL (12.0-18.0); pH ABG 7.442 (7.350-7.450)
[2024-05-03 05:35] LABS: Device ROOM AIR; Site Drawn LEFT BRACHIAL
[2024-05-03 06:00] VITALS: BP 123/85; PULSE 97; RESP 18; TEMP 37; O2SAT 98
[2024-05-03] MEDS: SODIUM CHLORIDE 0.9% IV 1,000 ML 125 ML IV CONT (06:39)
[2024-05-03 08:04] VITALS: PULSE 86
[2024-05-03] MEDS: ALPRAZolam (*CRX) 0.25 MG TABLET PO (08:05)
[2024-05-03] MEDS: PRAMIPEXOLE 0.5 MG TABLET 1.5 MG PO (08:05)
[2024-05-03 08:18] LABS: Hemoglobin 12.4 g/dL (12.0-15.0); Mean Corpuscular HGB Conc 32.6 g/dl (32-36); Mean Corpuscular Hemoglobin 29.4 pg (26-34); Mean Platelet Volume 10.5 fl (7.4-10.4); Platelet Count Result 296 k/mm3 (150-375); Red Blood Count 4.22 M/mm3 (4.2-5.4); Red Cell Distribution Width 13.9 % (11.5-14.5); White Blood Count 7.7 K/mm3 (4.5-10.0)
[2024-05-03 08:31] LABS: Lactic Acid Reflex 0.9 mmol/L (0.7-2.0)
[2024-05-03 08:32] LABS: Anion Gap 10 mmol/L (4-12); Blood Urea Nitrogen 21 mg/dL (7-17); Calcium 8.9 mg/dL (8.4-10.2); Carbon Dioxide 19 mmol/L (22-30); Chloride 112 mmol/L (98-107); Estimated CRCL calculation 94 ml/min; Estimated Glomerular Filt Rate > 60; Glucose 146 mg/dL (65-110); Magnesium 2.1 mg/dL (1.6-2.3); Sodium 141 mmol/L (137-145)
--- NOTE | 2024-05-03 11:49 | PM.DS ---
DS: Admitting Diagnosis Discharge Date 05/03/2024 Admitting Diagnosis SOB DS: Discharge Diagnosis Discharge Diagnosis (1) Acute respiratory alkalosis: Code(s): E87.3 - Alkalosis Status: Acute (2) HV (hyperventilation): Code(s): R06.4 - Hyperventilation Status: Acute DS: Summary Hospital Course Hospital Course: This is a 48-year-old female with past medical history significant for morbid obesity status post gastric bypass, generalized anxiety, depression disorder. patient was brought to the emergency room due to shortness of breath she had a several day complains as well as changes in her face stated that her face was swollen watermelon to make it go away workup and was short of breath breathing fast. Was brought to the emergency room for evaluation. Had been in her usual state of health up until this point denies any fevers, rigors, chills no new medications although she was taken off of her citalopram and started on tizanidine, denies overdose, Most likely patient under stressed hyperventilated and her face was flushed and electrolytes were off, this morning patient is more calm her is present in the room, her symptoms have improved, patient wish to go home, will discharge today. Time Spent with Patient Time attestation: Total time spent providing and/or coordinating discharge services: Exam Narrative: Patient is comfortable, NAD HEENT: eyes are clear and none icteric there is a facial symmetry and normal speech LUNGS:CTA HEART: RR S1S2 ABD: BS+, Soft and nontender Lower extremities: no edema SKIN: nonjaundiced Neuro: grossly intact. DS: Data Data Completed and Pending Labs on day of discharge: Labs from last 24 hours 05/03/24 05/03/24 05/02/24 08:12 05:17 23:02 WBC 7.7 RBC 4.22 Hgb 12.4 Hct 38.0 MCV 90.0 MCH 29.4 MCHC 32.6 RDW 13.9 Plt Count 296 MPV 10.5 H Immature Gran % (Auto) Neut % (Auto) Lymph % (Auto) Winn % (Auto) Eos % (Auto) Baso % (Auto) Lymph # (Auto) Winn # (Auto) Eos # (Auto) Baso # (Auto) Abs Immat Gran (auto) Absolute Neuts (auto) Absolute Nucleated RBC Nucleated RBC % PT INR APTT D-Dimer Puncture Site Left brachial ABG pH 7.442 ABG pCO2 32.4 L ABG pO2 67.3 L ABG PO2/FiO2 Ratio 3.20 ABG HCO3 21.6 L ABG O2 Saturation 94.3 L ABG O2 Content 18.5 ABG Base Excess -1.6 A-a Gradient 43.6 Oxyhemoglobin 93.4 Total Hemoglobin 14.1 O2 Delivery Device Room air O2 Liters/Min Not Reportable FiO2 21 Sodium 141 Potassium 4.0 Chloride 112 H Carbon Dioxide 19 L Anion Gap 10 BUN 21 H Creatinine 0.70 Estim Creat Clear Calc 94 Estimated GFR > 60 Glucose 146 H Lactic Acid 0.9 2.2 H Calcium 8.9 Magnesium 2.1 Total Bilirubin AST ALT Alkaline Phosphatase C-Reactive Protein NT-Pro-B Natriuret Pep Total Protein Albumin Urine Color Urine Appearance Urine pH Ur Specific [place] Urine Protein Urine Glucose (UA) Urine Ketones Ur Blood (Man) Urine Nitrate Urine Bilirubin Urine Urobilinogen Leukocyte Esterase Rfl Urine RBC Urine WBC Ur Squamous Epith Cells Urine Bacteria Urine Casts Urine Opiates Screen Urine Methadone Screen Ur Barbiturates Screen Ur Phencyclidine Scrn Ur Amphetamine Screen U Benzodiazepines Scrn Urine Cocaine Screen U Cannabinoids Screen Monoscreen Influenza A (RT-PCR) Influenza B (RT-PCR) RSV (RT-PCR) SARS-CoV-2 RNA (RT-PCR) Group A Strep (PCR) 05/02/24 05/02/24 05/02/24 19:30 19:29 19:21 WBC RBC Hgb Hct MCV MCH MCHC RDW Plt Count MPV Immature Gran % (Auto) Neut % (Auto) Lymph % (Auto) Winn % (Auto) Eos % (Auto) Baso % (Auto) Lymph # (Auto) Winn # (Auto) Eos
== END 2024-05-03 12:30 | disposition home or self-care (01) ==
LOC: ANHED 19:39 → ANH3MED 05-03 11:49 → ANH3MEDSUR 05-03 14:30
PROVIDERS: Admitting Provider Internal Medicine; Emergency Provider Emergency Medicine; Visit Provider Family Medicine
DX: R06.4 Hyperventilation (principal); E87.3 Alkalosis; M54.9 Dorsalgia, unspecified; E66.01 Morbid (severe) obesity due to excess calories; Z68.39 Body mass index [BMI] 39.0-39.9, adult; Z98.84 Bariatric surgery status; F41.8 Other specified anxiety disorders; Z20.822 Contact with and (suspected) exposure to COVID-19
CPT/HCPCS: 36415; 36600; 71045; 80048; 80053; 80307; 81001; 82805; 83605; 83735; 83880; 85025; 85027; 85380; 85610; 85730; 86140; 86308; 87040; 87086; 87637; 87651; 93005; 96361; 96374; 96375; 96376; 99285; A9270; G0378; J1200; J2060; J2919; J7030

== ENCOUNTER 2024-05-08 03:09 | Emergency (ER) | payer OTHER, SELFPAY ==
--- NOTE | ~2024-05-08 | US_ITS ---
EXAMINATION: US venous doppler UE RT DATE: 05/08/2024 07:45 INDICATION: Elbow phlebitis TECHNIQUE: White scale images with and without compression and Doppler images of the right upper extre mity veins were obtained. COMPARISON: None. FINDINGS: The right internal jugular vein, subclavian vein, axillary vein, brachial veins, basilic vein, cephal ic vein, radial vein, and ulnar vein are patent. IMPRESSION: 1. Patent right upper extremity veins. No evidence of deep venous thrombosis. Reviewed, dictated and finalized at location B.
[2024-05-08 03:13] VITALS: BP 150/77; PULSE 110; RESP 15; TEMP 36.6; O2SAT 100
[2024-05-08 06:19] VITALS: BP 137/78; PULSE 98; RESP 14; O2SAT 100
[2024-05-08] MEDS: HYDROcodone/acetaminophen (*CRX) 5-325 MG TABLET 2 TAB PO (07:05)
--- NOTE | 2024-05-08 08:25 | ED.GENADULT ---
HPI - General Adult General Chief complaint: Unspecified Stated complaint: R arm injection pain Time Seen by Provider: 05/08/24 06:42 History of Present Illness HPI narrative: This is a 48-year-old female presenting ED after to having a HIDA scan in developing injection site pain. She noticed pain and swelling along the pain that they injected the radiotracer into. She took Tylenol with minimal relief. No other complaints/symptoms. Related Data Home Medications Medication Instructions Recorded Confirmed cyanocobalamin (vitamin B-12) 1,000 mcg IM MONTHLY 09/05/23 05/02/24 1,000 mcg/mL injection solution alprazolam 0.25 mg tablet 0.25 mg PO TID 05/02/24 05/02/24 duloxetine 60 mg capsule,delayed 60 mg PO HS 05/02/24 05/02/24 release metformin 500 mg tablet 500 mg PO BID 05/02/24 05/02/24 pramipexole 1.5 mg tablet 1.5 mg PO BID 05/02/24 05/02/24 tizanidine 4 mg capsule 4 mg PO Q8H PRN muscle spasms 05/02/24 05/02/24 trazodone 100 mg tablet 100 mg PO HS 05/02/24 05/02/24 Allergies Allergy/AdvReac Type Severity Reaction Status Date / Time amoxicillin Allergy Hives Verified 05/02/24 15:49 divalproex sodium Allergy Hives Verified 05/02/24 15:49 [From Depakote] gabapentin AdvReac Nausea and Verified 05/02/24 15:49 Vomiting NSAIDS (Non-Steroidal AdvReac Unknown Verified 05/02/24 19:14 Anti-Inflamma pregabalin AdvReac severe Verified 05/02/24 15:49 migraine [facility] Past Medical History Medical History (Updated 05/08/24 @ 08:39 by Jadon Luong MD) History of renal stone Morbid obesity Rectocele Surgical History Surgical History (Updated 05/02/24 @ 15:49 by Senthil Kraus) H/O hysterectomy with oophorectomy History of section History of gastric bypass Hx of cystoscopy S/P gastric bypass Family History Family History (Updated 05/02/24 @ 22:20 by Allison Hawkins RN) Mother Hodgkin disease Father Lung cancer Other Patient's father is Patient's mother is Social History Social History (System 05/02/24 @ 15:49 by Senthil Kraus) Smoking status: Never smoker Alcohol intake: never Alcohol use details: denies Substance use: never Substance use type: does not use Do You Feel Safe in your Home?: Yes Lack of Transportation: No Lack of Food: Never True Current Housing: I Have Housing Concerned About Future Housing: No Difficulty Paying Gas/Electric Bills: No Difficulty Paying for Meds: No Currently Unemployed: No Education: High School Diploma/GED Difficulty w/ Childcare or Family Care: No Spiritual care concerns: No Exam Narrative: APPEARANCE: No apparent distress. Head: atraumatic. EYES: EOMI, NOSE: Atraumatic NECK: Trachea midline RESPIRATORY: No increased rate of breathing CARDIOVASCULAR: RRR, ABDOMINAL: Non-distended MUSCULOSKELETAl: Focal exam of the right upper extremity revealed redness tenderness along the pain that was injected with HIDA tracer. No areas of induration or fluctuance. Pulses are strong Radian ulnar distribution. Radial ulnar median motor nerve distribution intact. NEURO: Alert. Moving 4/4 extremities SKIN:: Warm, dry. Normal color PSYCHIATRIC: Normal affect Course Vital Signs Vital signs: Vital Signs Temperature 98 F 05/08/24 03:13 Pulse Rate 110 H 05/08/24 03:13 Respiratory Rate 15 05/08/24 03:13 Blood Pressure 150/77 H 05/08/24 03:13 Pulse Oximetry 100 05/08/24 03:13 Oxygen Delivery Room Air 05/08/24 03:13 Temperature 98 F 05/08/24 03:13 Pulse Rate 98 05/08/24 06:19 Respiratory Rate 14 05/08/24 06:19 Blood Pressure 137/78 05/08/24 06:19 Pulse Oximetry 100 05/08/24 06:19 Oxygen Delivery Room Air 05/08/24 03:13 Medical Decision Making MDM Narrative Medical decision making narrative: -Course: 48-year-old female presenting with injection site pain. Upper extremity ultrasound negative for DVT. Suspect superficial phleb
[2024-05-08] MEDS: HYDROmorphone HCL INJ (*CRX) 1 MG/ML SYR IM (08:50)
[2024-05-08 09:00] VITALS: BP 127/92; PULSE 88; RESP 17; O2SAT 100
== END 2024-05-08 09:04 | disposition home or self-care (01) ==
PROVIDERS: Emergency Provider Emergency Medicine
DX: T81.72XA Complication of vein following a procedure, not elsewhere classified, initial encounter (principal); E66.01 Morbid (severe) obesity due to excess calories; Z68.37 Body mass index [BMI] 37.0-37.9, adult; Z98.84 Bariatric surgery status; Z87.442 Personal history of urinary calculi; Z90.710 Acquired absence of both cervix and uterus; Z79.84 Long term (current) use of oral hypoglycemic drugs; Z79.899 Other long term (current) drug therapy; Y84.8 Other medical procedures as the cause of abnormal reaction of the patient, or of later complication, without mention of misadventure at the time of the procedure
CPT/HCPCS: 93971; 96372; 99284; A9270; J1170

== ENCOUNTER 2024-05-11 01:42 | Emergency (ER) | payer OTHER, SELFPAY ==
[2024-05-11 01:46] VITALS: BP 119/90; PULSE 99; RESP 18; TEMP 36.9; O2SAT 99
[2024-05-11 02:01] LABS: Appearance Urine Clear (Clear); Bilirubin Urine Negative (Negative); Blood Urine Negative (Negative); Color Urine Yellow (Yellow); Glucose Urine UA Negative (Negative); Ketones Urine Negative (Negative); Leukocyte Esterase Ur Negative LEU/UL (Negative); Nitrate Urine Negative (Negative); Protein Urine Negative (Negative); Specific Grav Ur 1.013 (1.001-1.035)
[2024-05-11 02:20] LABS: Add Urine Microscopic? NO
== END 2024-05-11 02:00 | disposition left against medical advice (07) ==
LOC: ANHED 06:12
PROVIDERS: Emergency Provider Emergency Medicine
DX: M54.50 Low back pain, unspecified (principal)
CPT/HCPCS: 81003; 99199

== ENCOUNTER 2024-08-28 03:52 | Emergency (ER) | payer OTHER, SELFPAY ==
--- NOTE | ~2024-08-28 | XR_ITS ---
Left Shoulder Technique: AP and scapular Y views were obtained. Clinical History: Pain Findings: No acute fracture or dislocation is seen. Possible healed fracture of the distal clavicle. The glenohumeral and acromioclavicular joint spaces are preserved. Soft tissues are unremarkable. Impression: No acute abnormality. Possible healed fracture deformity of the distal clavicle. Reviewed, dictated and finalized at location . CAB DRIVER Impression: No acute abnormality. Possible healed fracture deformity of the distal clavicle .
--- NOTE | ~2024-08-28 | XR_ITS ---
Portable chest x-ray Comparison: 05/02/2024 Clinical History: Chest pain Findings: Lungs are clear, without focal consolidation or pleural effusion. Cardiomediastinal silho uette is stable. Bones and soft tissues are unremarkable. Impression: Normal chest. Reviewed, dictated and finalized at [facility]. MESSENGER Impression: Normal chest.
--- NOTE | 2024-08-28 03:56 | ECG_ITS ---
Test Date: 2024-08-28 03:59:30 Measurements Intervals [place] Rate: 99 P: 37 CT: 140 QRS: 264 QRSD: 66 T: 6 QT: 325 QTc: 418 Interpretive Statements SINUS RHYTHM RIGHT AXIS DEVIATION ANTERIOR INFARCT, AGE INDETERMINATE BORDERLINE ST-T WAVE ABNORMALITY- INF/LAT LEADS BASELINE ARTIFACT- I, II, III, AVR, AVL, AVF, V1-V6 ABNORMAL ECG Compared to ECG 05/02/2024 14:57:08 NO SIGNIFICANT CHANGE Electronically Signed On 08-28-2024 05:40:34 [employer] [employer] by Stephen Babin D.O.
[2024-08-28 03:58] VITALS: BP 131/87; PULSE 95; RESP 14; TEMP 36.9; O2SAT 100
--- NOTE | 2024-08-28 04:05 | ED_ITS ---
HPI - General Adult General Chief complaint: Unspecified Stated complaint: L shoulder/arm pain/heart racing Time Seen by Provider: 08/28/24 04:02 History of Present Illness HPI narrative: 41-year-old female present to the emergency department for evaluation for left shoulder pain anxiety and rapid heart rate. Patient states that she began having some left shoulder pain a few days ago. Patient became concerned this was cardiac and this caused some increased anxiety and rapid heart rate. Patient has no prior cardiac history. Patient does have a history of anxiety. Patient is anxious upon arrival to the ED. Related Data Home Medications Medication Instructions Recorded Confirmed cyanocobalamin (vitamin B-12) 1,000 mcg IM MONTHLY 09/05/23 05/02/24 1,000 mcg/mL injection solution alprazolam 0.25 mg tablet 0.25 mg PO TID 05/02/24 05/02/24 duloxetine 60 mg capsule,delayed 60 mg PO HS 05/02/24 05/02/24 release metformin 500 mg tablet 500 mg PO BID 05/02/24 05/02/24 pramipexole 1.5 mg tablet 1.5 mg PO BID 05/02/24 05/02/24 tizanidine 4 mg capsule 4 mg PO Q8H PRN muscle spasms 05/02/24 05/02/24 trazodone 100 mg tablet 100 mg PO HS 05/02/24 05/02/24 Allergies Allergy/AdvReac Type Severity Reaction Status Date / Time amoxicillin Allergy Hives Verified 08/28/24 03:53 divalproex sodium Allergy Hives Verified 08/28/24 03:53 [From Depakote] gabapentin AdvReac Nausea and Verified 08/28/24 03:53 Vomiting NSAIDS (Non-Steroidal AdvReac Unknown Verified 08/28/24 03:53 Anti-Inflamma pregabalin AdvReac severe Verified 08/28/24 03:53 migraine Review of Systems Review of Systems: All systems reviewed & are unremarkable except as noted in HPI and below PMFSH Past Medical History Medical History (Updated 08/29/24 @ 00:01 by Gina Mane) History of renal stone Morbid obesity Rectocele Surgical History Surgical History (Updated 05/02/24 @ 15:49 by Senthil Kraus) H/O hysterectomy with oophorectomy History of section History of gastric bypass Hx of cystoscopy S/P gastric bypass Family History Family History (Updated 05/02/24 @ 22:20 by Allison Hawkins RN) Mother Hodgkin disease Father Lung cancer Other Patient's father is Patient's mother is Social History Social History (System 05/02/24 @ 15:49 by Senthil Kraus) Smoking status: Never smoker Alcohol intake: never Alcohol use details: denies Substance use: never Substance use type: does not use Do You Feel Safe in your Home?: Yes Lack of Transportation: No Lack of Food: Never True Current Housing: I Have Housing Concerned About Future Housing: No Difficulty Paying Gas/Electric Bills: No Difficulty Paying for Meds: No Currently Unemployed: No Education: High School Diploma/GED Difficulty w/ Childcare or Family Care: No Spiritual care concerns: No Exam Narrative: APPEARANCE: Well appearing, no pain, no distress, well-nourished. HEAD: normocephalic, atraumatic. EYES: PERRLA/EOMI, conjunctivae clear. NOSE: Normal no drainage EARS:TMS clear with good light reflex. THROAT: Pharynx clear, no exudate. NECK: Supple. No adenopathy, no masses. RESPIRATORY: Airway patent, respirations nonlabored. Clear to auscultation bilaterally, no rales, rhonchi, wheezing. CARDIOVASCULAR: Sinus tachycardia on arrival. ABDOMINAL: Soft, nontender, nondistended, normal bowel sounds MUSCULOSKELETAL: Moves all extremities. Strength/ROM intact, No edema, No calf tenderness. NEURO: Alert. Cranial nerves II through XII intact. Grossly intact SKIN: Warm, dry. Normal Color Course Vital Signs Vital signs: Vital Signs Temperature 98.4 F 08/28/24 03:58 Pulse Rate 95 08/28/24 03:58 Respiratory Rate 14 08/28/24 03:58 Blood Pressure 131/87 08/28/24 03:58 Pulse Oximetry 100 08/28/24 03:58 Oxygen Delivery Room Air 08/28/24 03:58 Temperature 98.4 F 08/28/24 03:58 Pulse Rate 64 08/28/24 04:57 Respiratory Rate 18 08/28/24 04:57 Blood Pressure 120/81 08/28/24 04:57 Pulse Oximetry 100 08/28/24 04:57 Oxygen Delivery Room Air 08/28/24 03:58 Medical Decision Making MDM Narrative Medical decision making narrative: 49-year-old female present to the emergency department for evaluation for anxiety rapid heart rate and left shoulder pain. Patient is afebrile with no leukocytosis and hemoglobin of 14.1, no significant abnormalities on her CMP p atient's troponin was negative. Patient's shoulder x-ray and chest x-ray showed no acute abnormalities. Patient did feel improved after treatment with anxiety medications. EKG showed no evidence of acute STEMI or cardiac arrhythmias. Patient's heart rate was not elevated. Patient was comfortable the plan for discharge and close follow-up. Differential Diagnosis Differential Diagnosis: Shoulder injury, chest pain, ACS, NSTEMI, pneumonia, pneumothorax Vital Signs Vital Signs: Vital Signs Temperature 98.4 F 08/28/24 03:58 Pulse Rate 95 08/28/24 03:58 Respiratory Rate 14 08/28/24 03:58 Blood Pressure 131/87 08/28/24 03:58 Pulse Oximetry 100 08/28/24 03:58 Oxygen Delivery Room Air 08/28/24 03:58 Temperature 98.4 F 08/28/24 03:58 Pulse Rate 64 08/28/24 04:57 Respiratory Rate 18 08/28/24 04:57 Blood Pressure 120/81 08/28/24 04:57 Pulse Oximetry 100 08/28/24 04:57 Oxygen Delivery Room Air 08/28/24 03:58 Lab Data Lab results reviewed: Yes I reviewed the patient's lab results. 08/28/24 04:15 08/28/24 04:15 Labs: Lab Results 08/28/24 Range/Units 04:15 WBC 7.8 (4.5-10.0) K/mm3 RBC 4.80 (4.2-5.4) M/mm3 Hgb 14.1 (12.0-15.0) g/dL Hct 42.6 (37.0-47.0) % MCV 88.8 (80-100) fl MCH 29.4 (26-34) pg MCHC 33.1 (32-36) g/dl RDW 13.9 (11.5-14.5) % Plt Count 311 (150-375) k/mm3 MPV 10.4 (7.4-10.4) fl Immature Gran % (Auto) 0.1 (0-0.5) % Neut % (Auto) 41.8 L (45.5-73.1) % Lymph % (Auto) 48.9 H (18.3-44.2) % [place] % (Auto) 6.4 (2.6-8.5) % Eos % (Auto) 2.0 (0-4.4) % Baso % (Auto) 0.8 (0.2-1.2) % Lymph # (Auto) 3.83 H (0.9-3.2) K/mm3 [place] # (Auto) 0.5 (0.1-0.6) K/mm3 Eos # (Auto) 0.2 (0-0.3) K/mm3 Baso # (Auto) 0.1 (0.0-0.1) K/mm3 Abs Immat Gran (auto) 0.01 (0.00-0.031) K/mm3 Absolute Neuts (auto) 3.3 (1.3-6.7) K/mm3 Absolute Nucleated RBC 0.000 (0.0-0.012) K/mm3 Nucleated RBC % 0.0 (0.0-0.2) % PT 12.2 (11.1-14.7) Seconds INR 0.9 APTT 29.5 (22.3-36.8) Seconds Sodium 139 (137-145) mmol/L Potassium 3.2 L (3.4-5.0) mmol/L Chloride 103 (98-107) mmol/L Carbon Dioxide 27 (22-30) mmol/L Anion Gap 9 (4-12) mmol/L BUN 19 H (7-17) mg/dL Creatinine 0.90 (0.7-1.0) mg/dL Estim Creat Clear Calc 70 ml/min Estimated GFR > 60 (59 - ) Glucose 98 (65-110) mg/dL Calcium 9.4 (8.4-10.2) mg/dL Total Bilirubin 0.5 (0.2-1.3) mg/dL AST 33 (14-36) U/L ALT 18 (6-35) U/L Alkaline Phosphatase 79 (38-126) U/L Troponin I < 0.012 (0.000-0.034) ng/mL Total Protein 7.0 (6.3-8.2) g/dL Albumin 4.2 (3.5-5.1) g/dL Imaging Data My impression: Chest x-ray: No acute cardiopulmonary abnormality Shoulder x-ray: No acute fracture or dislocation Discharge Plan Discharge Clinical Impression: Anxiety, Chest pain, Acute shoulder pain Patient Disposition: Home, Self-Care Condition: Stable Instructions: Antibiotic Form, Chest Pain (DC), Anxiety (ED) Additional Instructions: Tylenol and ibuprofen for pain control. Have close follow-up with primary care physician for additional outpatient cardiac testing. If you have worsening symptoms then please call or return to the emergency department. Prescriptions: No Action cyanocobalamin (vitamin B-12) 1,000 mcg/mL solution 1,000 mcg IM MONTHLY Rx Instructions: 1st metformin 500 mg Tablet 500 mg PO BID alprazolam 0.25 mg Tablet 0.25 mg PO TID trazodone 100 mg Tablet 100 mg PO HS pramipexole 1.5 mg Tablet 1.5 mg PO BID duloxetine 60 mg Capsule,Delayed Release(Dr/Ec) 60 mg PO HS tizanidine 4 mg Capsule 4 mg PO Q8H PRN (Reason: muscle spasms) acetaminophen 500 mg tablet 1,000 mg PO TID PRN (Reason: jackie) 7 Days Qty: 42 0RF oxycodone 5 mg tablet 5 mg PO Q4H PRN (Reason: pain) Qty: 14 0RF Follow-up/Referrals: UNKNOWN,DOCTOR [Primary Care Provider] -
[2024-08-28] MEDS: LORazepam INJ (*CRX) 2 MG/ML VIAL 1 MG IV PUSH (04:13)
[2024-08-28 04:20] LABS: Basophils Absolute Auto 0.1 K/mm3 (0.0-0.1); Basophils Percent Auto 0.8 % (0.2-1.2); Eosinophils Absolute Auto 0.2 K/mm3 (0-0.3); Hematocrit 42.6 % (37.0-47.0); Hemoglobin 14.1 g/dL (12.0-15.0); Immature Granulocyte Absolute 0.01 K/mm3 (0.00-0.031); Immature Granulocyte Percent A 0.1 % (0-0.5); Lymphocytes Absolute Auto 3.83 K/mm3 (0.9-3.2); Lymphocytes Percent Auto 48.9 % (18.3-44.2); Mean Corpuscular HGB Conc 33.1 g/dl (32-36); Mean Corpuscular Hemoglobin 29.4 pg (26-34); Mean Corpuscular Volume 88.8 fl (80-100); Mean Platelet Volume 10.4 fl (7.4-10.4); Monocytes Absolute Auto 0.5 K/mm3 (0.1-0.6); Monocytes Percent Auto 6.4 % (2.6-8.5); Neutrophils Absolute Auto 3.3 K/mm3 (1.3-6.7); Neutrophils Percent Auto 41.8 % (45.5-73.1); Platelet Count Result 311 k/mm3 (150-375); Red Cell Distribution Width 13.9 % (11.5-14.5); White Blood Count 7.8 K/mm3 (4.5-10.0)
[2024-08-28 04:31] LABS: Alanine Aminotransferase 18 U/L (6-35); Albumin Level 4.2 g/dL (3.5-5.1); Alkaline Phosphatase 79 U/L (38-126); Anion Gap 9 mmol/L (4-12); Aspartate Amino Transferase 33 U/L (14-36); Bilirubin,Total 0.5 mg/dL (0.2-1.3); Blood Urea Nitrogen 19 mg/dL (7-17); Calcium 9.4 mg/dL (8.4-10.2); Carbon Dioxide 27 mmol/L (22-30); Chloride 103 mmol/L (98-107); Estimated CRCL calculation 70 ml/min; Estimated Glomerular Filt Rate > 60; Glucose 98 mg/dL (65-110); INR 0.9; Potassium 3.2 mmol/L (3.4-5.0); Prothrombin Time 12.2 Seconds (11.1-14.7); Sodium 139 mmol/L (137-145)
[2024-08-28 04:32] LABS: Partial Thromboplastin Time 29.5 Seconds (22.3-36.8)
[2024-08-28 04:42] LABS: Troponin I < 0.012 ng/mL (0.000-0.034)
[2024-08-28 04:57] VITALS: BP 120/81; PULSE 64; RESP 18; O2SAT 100
== END 2024-08-28 05:01 | disposition home or self-care (01) ==
PROVIDERS: Emergency Provider Emergency Medicine
DX: M25.512 Pain in left shoulder (principal); R07.9 Chest pain, unspecified; F41.9 Anxiety disorder, unspecified; E66.01 Morbid (severe) obesity due to excess calories; Z68.36 Body mass index [BMI] 36.0-36.9, adult; Z98.84 Bariatric surgery status; Z90.710 Acquired absence of both cervix and uterus; Z87.442 Personal history of urinary calculi; R94.31 Abnormal electrocardiogram [ECG] [EKG]; Z79.84 Long term (current) use of oral hypoglycemic drugs; Z79.899 Other long term (current) drug therapy
CPT/HCPCS: 36415; 71045; 73030; 80053; 84484; 85025; 85610; 85730; 93005; 96374; 99284; A4565; J2060

== ENCOUNTER 2024-09-19 12:37 | Emergency (ER) | payer OTHER, SELFPAY ==
[2024-09-19 12:42] VITALS: BP 141/90; PULSE 97; RESP 18; TEMP 36.6; O2SAT 100
--- NOTE | 2024-09-19 13:27 | ED.WOUNDLAC ---
HPI - Wound/Laceration General Chief Complaint: Wound/Laceration Stated Complaint: FINGER LAC Time Seen by Provider: 09/19/24 13:02 History of Present Illness HPI narrative: Patient is a 49-year-old female who presents ER with laceration to the left 4th digit. She was chopping cucumbers when she avulsed her fingertips. Unknown last tetanus shot. No numbness. Related Data Home Medications Medication Instructions Recorded Confirmed cyanocobalamin (vitamin B-12) 1,000 mcg IM MONTHLY 09/05/23 05/02/24 1,000 mcg/mL injection solution alprazolam 0.25 mg tablet 0.25 mg PO TID 05/02/24 05/02/24 duloxetine 60 mg capsule,delayed 60 mg PO HS 05/02/24 05/02/24 release metformin 500 mg tablet 500 mg PO BID 05/02/24 05/02/24 pramipexole 1.5 mg tablet 1.5 mg PO BID 05/02/24 05/02/24 tizanidine 4 mg capsule 4 mg PO Q8H PRN muscle spasms 05/02/24 05/02/24 trazodone 100 mg tablet 100 mg PO HS 05/02/24 05/02/24 Allergies Allergy/AdvReac Type Severity Reaction Status Date / Time amoxicillin Allergy Hives Verified 09/19/24 12:46 divalproex sodium Allergy Hives Verified 09/19/24 12:46 [From Depakote] gabapentin AdvReac Nausea and Verified 09/19/24 12:46 Vomiting NSAIDS (Non-Steroidal AdvReac Unknown Verified 09/19/24 12:46 Anti-Inflamma pregabalin AdvReac severe Verified 09/19/24 12:46 migraine Review of Systems Constitutional: Constitutional: Reports no additional constitutional complaints Musculoskeletal: Musculoskeletal: Reports no additional musculoskeletal complaints Integumentary/Breasts: Skin/Breast: Denies erythema, Denies rash and Denies skin ulcer Comments: skin avulsion PMFSH Past Medical History Medical History (Updated 09/19/24 @ 13:41 by Koko Rai MD) History of renal stone Morbid obesity Rectocele Surgical History Surgical History (Updated 05/02/24 @ 15:49 by Senthil Kraus) H/O hysterectomy with oophorectomy History of section History of gastric bypass Hx of cystoscopy S/P gastric bypass Family History Family History (Updated 05/02/24 @ 22:20 by Allison Hawkins RN) Mother Hodgkin disease Father Lung cancer Other Patient's father is Patient's mother is Social History Social History (System 05/02/24 @ 15:49 by Senthil Kraus) Smoking status: Never smoker Alcohol intake: never Alcohol use details: denies Substance use: never Substance use type: does not use Do You Feel Safe in your Home?: Yes Lack of Transportation: No Lack of Food: Never True Current Housing: I Have Housing Concerned About Future Housing: No Difficulty Paying Gas/Electric Bills: No Difficulty Paying for Meds: No Currently Unemployed: No Education: High School Diploma/GED Difficulty w/ Childcare or Family Care: No Spiritual care concerns: No Exam Narrative: GENERAL: Well-appearing, well-nourished, and in no acute distress. HEAD: Normocephalic, atraumatic. EXTREMITIES: Normal range of motion. No edema. SKIN: Warm, dry, no rash. 1 cm avulsion of the tip of the left 4th digit. NEURO: Alert and oriented x3. PSYCH: Normal mood and affect. Course Course Emergency Course: Patient resting comfortably. Wound repaired. Discharge. Tetanus updated. Vital Signs Vital signs: Vital Signs Temperature 97.8 F 09/19/24 12:42 Pulse Rate 97 09/19/24 12:42 Respiratory Rate 18 09/19/24 12:42 Blood Pressure 141/90 H 09/19/24 12:42 Pulse Oximetry 100 09/19/24 12:42 Oxygen Delivery Room Air 09/19/24 12:42 Temperature 97.8 F 09/19/24 12:42 Pulse Rate 97 09/19/24 12:42 Respiratory Rate 18 09/19/24 12:42 Blood Pressure 141/90 H 09/19/24 12:42 Pulse Oximetry 100 09/19/24 12:42 Oxygen Delivery Room Air 09/19/24 12:42 Procedures Laceration Laceration 1: Date: 09/19/24 Time: 13:39 Site: other (ring finger) Side (If applicable): left Size (cm): 1 Description: clean Depth: simple, single layer Local Anesthetic: lidocaine 1% and with epi Amount of anesthesia used (mL): 1 Pre-repair: irrigated ====== Skin Level ====== Skin layer closed with: dermabond ====== Subcutaneous Layer ====== ====== Muscle Layer ====== ====== Tendon Layer ====== Discharge Plan Discharge Clinical Impression: Avulsion of finger tip Patient Disposition: Home, Self-Care Condition: Stable Instructions: Skin Avulsion (ED), Skin Adhesive Care (ED) Additional Instructions: Return the ER if your finger is red and hot, you have fever over 100.4? F, or you have additional concerns. Prescriptions: No Action cyanocobalamin (vitamin B-12) 1,000 mcg/mL solution 1,000 mcg IM MONTHLY Rx Instructions: 1st metformin 500 mg Tablet 500 mg PO BID alprazolam 0.25 mg Tablet 0.25 mg PO TID trazodone 100 mg Tablet 100 mg PO HS pramipexole 1.5 mg Tablet 1.5 mg PO BID duloxetine 60 mg Capsule,Delayed Release(Dr/Ec) 60 mg PO HS tizanidine 4 mg Capsule 4 mg PO Q8H PRN (Reason: muscle spasms) acetaminophen 500 mg tablet 1,000 mg PO TID PRN (Reason: jackie) 7 Days Qty: 42 0RF oxycodone 5 mg tablet 5 mg PO Q4H PRN (Reason: pain) Qty: 14 0RF Follow-up/Referrals: [facility] [Primary Care Provider] - 1 Week
[2024-09-19] MEDS: TETANUS,DIPHTHERIA,AC PERTUSSIS ADULT (0.5 ML) BOOSTRIX IM (13:57)
== END 2024-09-19 14:10 | disposition home or self-care (01) ==
PROVIDERS: Emergency Provider Emergency Medicine
DX: S61.215A Laceration without foreign body of left ring finger without damage to nail, initial encounter (principal); Z23 Encounter for immunization; Z98.84 Bariatric surgery status; Z87.442 Personal history of urinary calculi; Z90.710 Acquired absence of both cervix and uterus; Y93.G1 Activity, food preparation and clean up; W26.9XXA Contact with unspecified sharp object(s), initial encounter
CPT/HCPCS: 12001; 90471; 90715; 99282; J2004

== ENCOUNTER 2025-03-22 18:02 | Observation (INO) | payer OTHER, SELFPAY ==
--- NOTE | ~2025-03-22 | XR_ITS ---
EXAMINATION: XR retrograde pyelo w/stent RT DATE: 03/23/2025 13:18 INDICATION: Right-sided ureteral stone. Right retrograde pyelogram with stent placement TECHNIQUE: 2 fluoroscopic images of the abdomen and pelvis were obtained during procedure performed carson Rivera. Radiologist was not present for the imaging or procedure. The amount of fluoroscopy time used during this procedure was 0.5 minutes. Total DAP was 0.383 mGym^2. COMPARISON: None. FINDINGS: Images demonstrate placement of a right intrarenal stent with loops formed at the right yohan al pelvis and in the bladder. There is a small amount of injected contrast within the right renal col lecting system. The distal right ureteral stone seen on prior CT is not visualized on the current duncan ges and has likely been extracted. Phlebolith in the inferior right hemipelvis. IMPRESSION: 1. Fluoroscopy utilized during likely right ureteral stone extraction and right internal ureteral andria nt placement which is in expected position. See procedure note for further detail. Reviewed, dictated and finalized at location A. IMPRESSION: 1. Fluoroscopy utilized during likely right ureteral stone extraction and right internal ureteral stent placement which is in expected position. See procedure note for further detail.
--- NOTE | ~2025-03-22 | CT_ITS ---
CT abdomen pelvis wo con Ordering provider: Lisa Rosado PA-C History: 49 years Female with . R and L flank pain, RLQ abd pain . Comparison: April 11, 2024 Technique: CT abdomen and pelvis without IV and without oral contrast. Automated exposure control and iterative reconstruction technique were employed. The dose-length product was 329.23 mGy-cm. Findings: VISUALIZED LOWER CHEST: Normal. UPPER ABDOMINAL ORGANS: Liver: Borderline hepatomegaly. Gallbladder: Normal. Spleen: Normal. Stomach/duodenum: Normal. Postoperative changes in the stomach. Adrenals: Normal. Kidneys: Right hydronephrotic changes and hydroureter with a stone seen in the lower ureter measuring 5 mm. Possible stone seen distally is possible measuring 6 mm cannot be excluded.. Tiny stones are s een in the left kidney mid and lower poles. PELVIC ORGANS: The bladder is underfilled. BOWEL AND MESENTERY: Colon: Mild sigmoid diverticulosis without evidence of diverticulitis.. Postoperative changes seen on the left side. Normal appendix. Small Bowel: Normal. No obstruction. Peritoneum/mesentery: No free air or free fluid. No mesenteric lymphadenopathy. RETROPERITONEUM: Normal aorta. No retroperitoneal lymphadenopathy. MUSCULOSKELETAL: Superficial soft tissues: The superficial soft tissues are normal. Bones: Normal spine. IMPRESSION: 1. Stone in the right lower ureter with moderate right hydronephrotic changes. 2. No evidence of appendicitis, diverticulitis or intestinal obstruction. Reviewed, dictated and finalized at location A.
--- OUTSIDE RECORDS SUMMARY | 2025-03-22 18:07 | XMS_ITS | Encounter Summary ---
Author Organization [facility] Address [address] [place] [address] Phone Care Team Providers Care Side Seam Envelope Machine Operator Name Role Phone Rajesh Remy NP Primary Care Provider [phone] Rajesh Remy NP Primary Care Provider [phone] Luzmaria Ba MD Primary Care Provider [phone] [facility], [facility] Primary Care Provide r Unavailable Luzmaria Ba MD Unavailable [phone] Rajesh Remy NP Primary Care Provider [phone] Uche Williamson MD Unavailable [phone] Mere Granados MD Unavailable [phone] Asuncion Lyle MD Primary Care Provid er Asuncion Lyle MD Primary Care Provid er No, Physician Primary Care Provider [phone] Asuncion Lyle MD Primary Care Provid er Bert Calderon PT Unavailable [phone] Encounter Details Date Type Department Care Team (Latest Contact Info) Description 02/13/2018 Orders Only [facility] CONVERSION Scanning, Provider Social History Tobacco Use Types Packs/Day Years Used Date Smoking Tobacco: Never Comments Unknown Sex and Gender Information Value Date Recorded Sex Assigned at Not on file Legal Sex Female 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 Gender Identity Not on file Sexual Orientation Not on file documented as of this encounter Plan of Treatment Scheduled Procedures Name Priority Associated Diagnoses Date/Ti me ESOPHAGOGASTRODUODENOSCOPY Heartburn documented as of this encounter Procedures Procedure Name Priority Date/Time Associated Diagnosis Comments OBSTETRIC/GYNECOLOGY ULTRASONOGRAPHY REPORT 02/13/2018 3:52 PM CDT documented in this encounter Results * OBSTETRIC/GYNECOLOGY ULTRASONOGRAPHY REPORT (02/13/2018 3:52 PM CDT) Anatomical Region Laterality Modality Ultrasound us Provider Scanning IMG OB US PROCEDURES Final Res ult documented in this encounter Visit Diagnoses Not on filedocumented in this encounter Additional Health Concerns Infection Onset Date Last Indicated Resolved Time COVID: Suspected 07/31/2021 07/31/2021 07/31/2021 12:39 PM CDT COVID: Suspected 06/25/2022 06/25/2022 06/25/2022 9:05 PM CDT COVID: Suspected 09/08/2022 09/08/2022 09/08/2022 5:59 PM POLYMERIZATION OVEN TENDER documented as of this encounter Care Teams Side Seam Envelope Machine Operator Relationship Specialty Start Date End Date Rajesh Remy NP PCP - General 02/13/18 03/07/18 Rajesh Remy NP PCP - General 03/08/18 03/22/18 Luzmaria Ba MD PCP - General 03/23/18 02/27/19 Sahra Amos MD PCP - General Women'S Activities Adviser 02/28/19 05/29/19 Rajesh Remy NP PCP - General Nurse Practitioner 05/30/19 05/10/20 Mere Granados MD [address] [place] [id number] [place] [address] PCP - Gastroenterology Gastroenterology 06/07/1908/09 Asuncion Lyle MD [address] [place] [id number] [place] [address] PCP - General 06/12/20 06/17/21 Asuncion Lyle MD [address] [place] [id number] [place] [address] PCP - General 05/11/20 06/11/20 Lovely Physician PCP - General 07/31/21 06/28/22 Asuncion Lyle MD [address] [place] [id number] PCP - General Family Practice 06/29/22 Luzmaria Ba MD Referring Physician Obstetrics and Gynecology 03/13/19 Uche Williamson MD [address] [place] [id number] [place] [address] Referring Physician Gynecologic Oncology 06/07/19 [place] [address] [place] [address] Physical Therapist Physical Therapy 12/02/22 12/02/22 RAJESH REMY NP [facility] [address] [facility] [address] Referring Physician Internal Medicine 05/30/19 documented as of this encounter
--- OUTSIDE RECORDS SUMMARY | 2025-03-22 18:07 | XMS_ITS | Clinical Summary ---
Author Organization [address] Address [address] [place] [id number] Care Team Providers Care Safety Lamp Keeper Name Role Phone Unavailable Primary Care Provider Unavailabl e Social History Tobacco Use Types Packs/Day Years Used Date Smoking Tobacco: Never Assessed Comments Unknown Sex and Gender Information Value Date Recorded Sex Assigned at Not on file Legal Sex Female 10:56 AM CDT Gender Identity Not on file Sexual Orientation Not on file Plan of Treatment Health Maintenance Due Date Last Done Comments DTAP/TDAP/TD VACCINES (1 - Tdap) 1995 HEPATITIS B VACCINES (1 of 3 - 19+ 3-dose series) 06/24 HPV/Cotest (21-29) 1997 CERVICAL CANCER SCREENING 2006 HPV/Cotest (30-65) 2006 PAP SMEAR 2006 BREAST CANCER SCREENING 2016 COLORECTAL SCREENING 2021 Colorectal Cancer Screening 2021 FIT-DNA Q 3 years 2021 FIT/FOBT Q 1 year 2021 Flex Sig/CT Colonography Q 5 years 2021 INFLUENZA VACCINE (#1) 2024 Insurance [employer]
--- OUTSIDE RECORDS SUMMARY | 2025-03-22 18:08 | XMS_ITS | Clinical Summary ---
Author Organization [facility] al Address [address] [place] [address] Care Team Providers Care Hemp Fiber Taker Off Name Role Phone Luzmaria Ba MD Unavailable [phone] Uche Williamson MD Unavailable [phone] Asuncion Lyle MD Primary Care Provid er Allergies Active Allergy Reactions Criticality Noted Date Comments Adhesive Rash Medium 04/02/2020 Adhesive Tape-Silicones Rash Medium Amoxicillin Hives,Rash Medium 03/19/2019 Cyanocobalamin (Vitamin B12) Hives Medium Pill form Cyanocobalamin-Cobamamid e Hives Medium 11/01/2010 Divalproex Hives Medium 08/27/2022 Fluticasone Unknown 07/28/2020 Gabapentin Headache Low 11/22/2019 Methocarbamol Headache Low 11/22/2019 Naltrexone-Bupropion Other (See comments) Low 01/15/2024 Leg Muscle shaking, patient also states :My neck is very crackly and feels squished. Just a lot of tension I guess in my neck and head and eyes This reaction is to 25 mg PO Naltrexone only after 4 days use that started 01/11/2024. 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 Active diphenhydrAMINE (BENADRYL) 25 mg capsule Take 1 tablet/capsule (25 mg total) by mouth nightly as needed for allergies or sleep Active DULoxetine DR (CYMBALTA) 60 mg capsuleIndications :Anxiety with Depression Take 1 capsule (60 mg total) by mouth nightly Active traZODone (DESYREL) 100 mg tabletIndications: insomnia associated with depression Take 1 tablet (100 mg total) by mouth nightly as needed 08/30/20 22 Active ALPRAZolam (XANAX) 0.25 mg tablet Take 1 tablet (0.25 mg total) by mouth 2 (two) times a day Active calcium citrate-vitamin D3 200 mg-6.25 mcg (250 unit) tabletIndications: Hypocalcemia Prevention Take 2 tablets by mouth 3 (three) times a day Start post-surgery 180 tablet 05/24/20 Active Additional Information Patient taking differently:2 tablet oral 3 times daily,Stopped taking, Indications: Hypocalcemia Prevention, Informant: Self, Reported on 11/27/2023 cyanocobalamin (Vitamin B-12) 1,000 mcg/mL injection Inject 1 mL (1,000 mcg total) into the muscle as instructed every 30 (thirty) days 1 mL 05/24/20 Active Additional Information Patient taking differently:1,000 mcg intramuscular Every 30 days,Indications: Vitamin B12 Deficiency, Informant: Self, Reported on 05/25/2023 Essential Woman 50 Plus 0.4-250 mg-mcg tablet Has not started as of 05/25/23 - Uses Gummie Multivitamin 05/24/20 Active albuterol HFA (PROVENTIL HFA,VENTOLIN HFA,PROAIR HFA) 90 mcg/actuation inhalerIndications :Acute Asthma Attack Inhale 2 puffs every 6 (six) hours as needed Active simethicone (MYLICON) 80 mg chewable tablet Take 1 tablet (80 mg total) by mouth 2 (two) times a day as needed for flatulence 30 tablet 06/09/20 23 Active multivitamin with folic acid 400 mcg tablet Take 1 tablet by mouth daily 11/30/19 24 Active ondansetron ODT (ZOFRAN-ODT) 4 mg disintegrating tabletIndications: Prevention of Post-Operative Nausea and Vomiting Take 1 tablet (4 mg total) by mouth every 4 (four) hours as needed for nausea or vomiting 30 tablet 11/29/19 24 Active acetaminophen (TYLENOL) 500 mg tablet TAKE 2 TABLETS BY MOUTH THREE TIMES DAILY NEEDED FOR PAIN 05/08/20 24 Active ferrous sulfate 325 mg (65 mg of elemental iron) tabletIndications: Iron Deficiency Anemia Take 1 tablet (325 mg total) by mouth daily with breakfast 30 tablet 11 07/02/20 24 025 Active Active Problems Problem Noted Date Diagnosed Date Nausea and vomiting 11/26/2023 Morbid (severe) obesity due to excess calories 0 06/08/2023 Morbid obesity 05/09/2023 Heartburn 12/06/2022 Overview (01/11/2023): Added automatically from request for surgery [id number] Cataplexy 06/29/2022 Restless legs 06/29/2022 Psychophysiological insomnia 06/29/2022 Hypersomnia 06/29/2022 Sleep disorder 06/29/2022 Nonsmoker 06/29/2022 Neck pain 08/05/2021 Intractable headache 08/05/2021 Acute low back pain due to trauma 10/06/2020 Acute pharyngitis 10/06/2020 Acute pneumonia 10/06/2020 Morbid obesity due to excess calories 10/06/2020 Fasting hyperglycemia 10/06/2020 Fibromyalgia 10/06/2020 Gastroesophageal reflux disease with stricture 1 12/07/2019 Hydronephrosis with urinary obstruction due to ureteral calculus 10/06/2020 Influenza A with respiratory manifestations 09/22 Kidney stone 10/06/2020 Lymphadenopathy 10/06/2020 Migraine without status migrainosus, not intract able 10/06/2020 [place] eye disease 10/06/2020 Primary hypothyroidism 10/06/2020 Right ankle sprain 10/06/2020 Sprain of left foot 10/06/2020 Swelling of tonsil 10/06/2020 Systemic viral illness 10/06/2020 Adnexal cyst 06/20/2019 Overview (06/20/2019): Added automatically from request for surgery [id number] Urgency incontinence 03/09/2018 Bilateral myofascial pain 03/08/2018 Frequent urination 03/08/2018 Dysuria 09/20/2016 Surgical follow-up care 09/20/2016 Pelvic pain 07/09/2016 Abdominal pain Resolved Problems Problem Noted Date Diagnosed Date Resolved Date BMI 50.0-59.9, adult 06/29/2022 024 Increased urinary frequency 03/08/2018 04/04/2018 Ovarian cystic mass 02/13/2018 04/04/20 18 Pelvic mass in female 02/13/20182017 Encounters Date Type Department Care Team Description 03/19/2025 Telephone [facility] Minimally Invasive Surgery [facility] Medical Office Building [address] [place] [address] Fay Padilla B.A. from Last 3 Months Surgical History Surgery Date Site/Laterality Comments MI DCMPRN FASCT LEG ANT&/LAT COMPARTMENTS ONLY 1996, 2006 Left Leg Decompression Fasciotomy Anterior Compartment - (Added by TW Conv) LEFT OOPHORECTOMY 10/23/2017 - 10/22/2018 Left laparoscopic SECTION 1998, 2000, 2003 LEG SURGERY POLYPECTOMY 10/23/2014 - 10/22/2015 URETERAL STENT PLACEMENT 10/23/2016 - 10/22/2017 HYSTERECTOMY 10/23/2015 - 10/22/2016 MI UNLISTED PROCEDURE BREAST 10/23/2014 - 10/22/2015 ABDOMINAL SURGERY COLONOSCOPY 2000 HIATAL HERNIA REPAIR INGUINAL HERNIA REPAIR UMBILICAL HERNIA REPAIR SALPINGOOPHORECTOMY 10/23/2018 - 10/22/2019 Right Medical History Medical History Date Comments History of gestational diabetes History of gestational diabetes mellitus (GDM) - (Added by TW Conv) Personal history of other di seases of the female genital tract History of menorrhagia - (Ad ded by TW Conv) Personal history of other di seases of the female genital tract History of dysmenorrhea - (A dded by TW Conv) Pelvic and perineal pain Pelvic pain - (Added by TW Conv) Encounter for follow-up exam ination after completed treatment for conditions other than malignant neoplasm Follow-up surgery care - (Ad ded by TW Conv) Personal history of other sp ecified conditions History of dysuria - (Added by TW Conv) Frequent headaches Acid reflux History of underactive thyroid History of kidney stones 2016 Hemorrhoid Anxiety and depression Arthritis Chronic constipation Chronic diarrhea COPD (chronic obstructive pu lmonary disease) (HCC) Diverticulitis of colon Fibromyalgia, primary Fractures Peptic ulcer disease Irritable bowel syndrome Joint pain Kidney stone Low back pain Morbid obesity ([facility]) Sleep apnea Thyroid disease Urinary incontinence Vitamin D deficiency Other complications of anest hesia, sequela High tolerance to Anesthesi a, Planned block anesthesia for C-Sections required conversion over to general anesthesia Nausea and vomiting 11/26/2023 Family History Medical History Relation Name Comments 22y , jerking motions after T&A in 2016 at [facility] Daughter Crohn's disease Daughter Family histo ry of Crohn's disease - (Added by TW Conv) 60s y, CVA Father Juanita Heart disease Father Juanita Family history of cardiac disorder - (Added by TW Conv) Lung cancer Father Juanita Family history of lung cancer - (Added by TW Conv) Stroke Father Juanita 48y, heart valves x2 replaced Mother Divya Heart disease Mother Divya Family history of cardiac disorder - (Added by TW Conv) Hodgkin's lymphoma Mother Divya Family hi story of Hodgkin's lymphoma - (Added by TW Conv) Stroke Mother Divya Valvular heart disease Mother Divya Diabetes type I Other 1 Family histo ry of type 1 diabetes mellitus - Relation: Aunt (Added by TW Conv) Heart attack Other 1 Breast cancer Other 2 Family history of malignant neoplasm of breast - Relation: Aunt (Added by TW Conv) Rheum arthritis Paternal Grandmother Fami ly history of rheumatoid arthritis - (Added by TW Conv) Heart disease Sister 21 January Family history of cardiac disorder - (Added by TW Conv) Lupus Sister 2 Family history of systemic lupus erythematosus - (Added by TW Conv) Relation Name Status Comments Brother Alive Daughter Alive Father Juanita Mother Divya Other 1 Other 2 Paternal Grandmother Sister 21 January Alive Sister 2 Alive Social History Tobacco Use Types Packs/Day Years Used Date Smoking Tobacco: Never Smokeless Tobacco: Never Tobacco Cessation:Counseling Given: Not Answered Alcohol Use Standard Drinks/Week Comments No 0 (1 standard drink = 0.6 oz pur e alcohol) AUDIT-C Answer Date Recorded Q1: How often do you have a drink containing alcohol? Never 07/01/2024 Q2: How many drinks containi ng alcohol do you have on a typical day when you are drinking? Patient does not drink Q3: How often do you have si x or more drinks on one occasion? Never 07/01/2024 Personal Safety Answer Date Recorded Have you ever been in or are you currently in a harmful physical or emotional relationship or is someone making you feel afraid or unsafe? 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 Gender Identity Not on file Sexual Orientation Not on file Obstetrics History Para Term AB IAB SAB Ectopic Multiple Livin g Live Births 3 3 3 3 3 Date Outcome GA Total Labor Labor/2nd/3rd Weight Sex Type Anes PTL Karen A1 A5 Name Clin 1998 M CS-Un spec Epidura l,Gener al Living Complications:Other (Comment ) 2000 F CS-Un spec Spinal Living Complications:Other (Comment ) 2003 F CS-Un spec Spinal Living Complications:Other (Comment ) Comments [facility] / BSO Last Filed Vital Signs Vital Sign Reading Time Taken Comments Blood Pressure 135/85 07/01/2024 1:11 PM CDT Pulse 82 07/01/2024 1:11 PM CDT Temperature 36.7 C (98 F) 01/06/2024 5:19 PM CDT Respiratory Rate 20 01/06/2024 5:19 PM CDT Oxygen Saturation 99% 07/01/2024 1:11 PM CDT Inhaled Oxygen Concentration - - Weight 87.1 kg (192 lb) 07/01/2024 1:11 PM CDT Height 157.5 cm (5' 2) 07/01/2024 1:11 PM CDT Body Mass Index 35.12 07/01/2024 1:11 PM CDT Plan of Treatment Scheduled Procedures Name Priority Associated Diagnoses Date/Ti me ESOPHAGOGASTRODUODENOSCOPY Heartburn Health Maintenance Due Date Last Done Comments Breast Cancer Screening-Mammogram 1976 Colon Cancer Screening-Colonoscopy 1976 Depression Screening 1976 Hepatitis C Screening 1976 Hepatitis B Screening 1994 Regular Well Visit/Exam 18-64 1994 Pneumococcal vaccine <65 (1 of 2 - PCV) 1995 DTaP/Tdap/Td Vaccine (2 - Td or Tdap) 08/18/2020 08/18/2010 Influenza Vaccine (Season Ended) 2025 08/17/2017, 09/08/2016, 09/22/2015, Additional history exists Medical Devices Implanted Type Area Shear Helper Device Identifier Shelf Expiration Date Model / Serial / Lot [employer] Biological Bariatric Peristrip Non Crosslinked Bovine Pericardium For Endo Marcelina Thin [id number] - Sn/A - [id number] Implanted:Qty: 1 on 06/08/2023 by Bert Rankin MD at [facility] Other - see comments N/A: Abdomen [employer] 11/02/2023 [id number] [id number] / N/A / [id number] Description:Hannah strip [employer] Biological Bariatric Peristrip Non Crosslinked Bovine Pericardium For Endo Marcelina Thin [id number] - Sn/A - [id number] Implanted:Qty: 1 on 06/08/2023 by Bert Rankin MD at [facility] Other - see comments N/A: Abdomen [employer] 11/02/2023 [id number] THN / N/A / [id number] Description:Hannah strip Insurance [facility] Address: [address] [place] [address] [facility] Member Subscriber Plan / Payer (Ef fective 2020-Present) Name:Rebeca Huber Relation to Subscriber:Self Name:MayoJanie ricoary Negrete Payer ID:[id number] (NAIC) Group ID:Not on file Type:MEDICAID RISK OTHER Address: ATTN: CLAIMS DEPT [address] COMMUNITY [facility] OFF[facility] COMM C[facility] Advance Directives For more information, please contact: [phone] * Full Code (Latest Code Status on File) Date Activated Date Inactivated Comments 11/27/2023 3:21 AM 11/29/2023 6:04 PM * Full Code Date Activated Date Inactivated Comments 08/16/2023 9:32 AM 08/16/2023 3:17 PM * Full Code Date Activated Date Inactivated Comments 08/03/2023 8:07 AM 08/03/2023 1:47 PM * Full Code Date Activated Date Inactivated Comments 06/08/2023 5:57 PM 06/11/2023 7:05 PM * Full Code Date Activated Date Inactivated Comments 08/05/2021 4:09 AM 08/06/2021 7:43 PM Care Teams Hemp Fiber Taker Off Relationship Specialty Start Date End Date Asuncion Lyle MD [address] [facility] [place] [id number] PCP - General Family Practice 06/29/22 Luzmaria Ba MD Referring Physician Obstetrics and Gynecology 03/13/19 Uche Williamson MD [address] [facility] [id number] [place] [address] Referring Physician Gynecologic Oncology 06/07/19 RAJESH MONK NP [facility] [address] [facility] [address] Referring Physician Internal Medicine 05/30/19
--- OUTSIDE RECORDS SUMMARY | 2025-03-22 18:08 | XMS_ITS | Referral Summary ---
Author Organization [facility] Address [address] [place] [address] Care Team Providers Care Car Repairer Name Role Phone Luzmaria Ba MD Unavailable Uche Williamson MD Unavailable [phone] Asuncion Lyle MD Primary Care Provid er Encounters Date Type Department Care Team Description 03/19/2025 Telephone [facility] Minimally Invasive Surgery [address] [place] [address] Medical Office Building [address] [place] [address] Fay Padilla BYoshi. 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 Active diphenhydrAMINE (BENADRYL) 25 mg [...] a day Start post-surgery 180 tablet 05/24/20 23 Active Additional Information Patient taking differently:2 tablet oral 3 times daily,Stopped taking, Indications: Hypocalcemia Prevention, Informant: Self, Reported on 11/27/2023 cyanocobalamin (Vitamin B-12) 1,000 mcg/mL injection Inject 1 mL (1,000 mcg total) into the muscle as instructed every 30 (thirty) days 1 mL 05/24/20 23 Active Additional Information Patient taking differently:1,000 mcg intramuscular Every 30 days,Indications: Vitamin B12 Deficiency, Informant: Self, Reported on 05/25/2023 Essential Woman 50 Plus 0.4-250 mg-mcg tablet Has not started as of 05/25/23 - Uses Gummie Multivitamin 05/24/20 23 Active albuterol HFA (PROVENTIL HFA,VENTOLIN HFA,PROAIR HFA) [...] (01/11/2023): Added automatically from request for surgery [id number] Cataplexy 06/29/2022 Restless legs 06/29/2022 Psychophysiological insomnia [...] without status migrainosus, not intract able 10/06/2020 [place] eye disease 10/06/2020 Primary hypothyroidism 10/06/2020 Right ankle sprain 10/06/2020 Sprain of left foot 10/06/2020 Swelling of tonsil 10/06/2020 Systemic viral illness 10/06/2020 Adnexal cyst 06/20/2019 Overview (06/20/2019): Added automatically from request for surgery [id number] Urgency incontinence 03/09/2018 Bilateral myofascial pain 03/08/2018 Frequent urination 03/08/2018 Dysuria 09/20/2016 Surgical follow-up care 09/20/2016 Pelvic pain 07/09/2016 Abdominal pain Resolved Problems Problem Noted Date Diagnosed Date Resolved Date BMI 50.0-59.9, adult 06/29/2022 024 Increased urinary frequency 03/08/2018 04/04/2018 Ovarian cystic mass 02/13/2018 04/04/20 18 Pelvic mass in female 02/13/20182017 Social History Tobacco Use Types Packs/Day Years [...] on file 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 Gender Identity Not on file Sexual Orientation Not on file Last Filed Vital Signs Vital Sign Reading [...] Priority Associated Diagnoses Date/Ti me ESOPHAGOGASTRODUODENOSCOPY Heartburn Medical Devices Implanted Type Area Shovel Handle Assembler Device Identifier Shelf Expiration Date Model / Serial / Lot [employer] Biological Bariatric Peristrip Non Crosslinked Bovine Pericardium For Endo Marcelina Thin [id number] - Sn/A - [id number] Implanted:Qty: 1 on 06/08/2023 by Bert Rankin MD at [facility] Other - see comments N/A: Abdomen [employer] 11/02/2023 [id number] THN / N/A / [id number] Description:Hannah strip [employer] Biological Bariatric Peristrip Non Crosslinked Bovine Pericardium For Endo Marcelina Thin [id number] - Sn/A - [id number] Implanted:Qty: 1 on 06/08/2023 by Betr Rankin MD at [facility] Other - see comments N/A: Abdomen [employer] 11/02/2023 [id number] THN / N/A / [id number] Description:Hannah strip Insurance [facility] OFF[facility] C[facility] Advance Directives For more information, please contact: [phone] * Full Code (Latest Code Status on [...] 4:09 AM 08/06/2021 7:43 PM Care Teams Car Repairer Relationship Specialty Start Date End Date Asuncion Lyle MD [address] [place] [address] PCP - General Family Practice 06/29/22 Luzmaria Ba MD Referring Physician Obstetrics and Gynecology 03/13/19 Uche Williamson MD [id number] [place] [address] Referring Physician Gynecologic Oncology 06/07/19 RAJESH MONK NP [facility] [address] [facility] [address] Referring Physician Internal Medicine 05/30/19
[2025-03-22 18:15] VITALS: BP 125/82; PULSE 104; RESP 18; TEMP 36.8; O2SAT 99
[2025-03-22 19:01] LABS: Add Urine Microscopic? YES; Appearance Urine Clear (Clear); Bacteria Urine None Seen /hpf; Bilirubin Urine Negative (Negative); Blood Urine Negative (Negative); Color Urine Yellow (Yellow); Glucose Urine UA Negative (Negative); Ketones Urine Trace mg/dL (Negative); Leukocyte Esterase Ur 1+ LEU/UL (Negative); Nitrate Urine Negative (Negative); Non Pathogenic Casts 0-2; Protein Urine Negative (Negative); RBC Urine 0-2 /hpf (0-2); Specific Grav Ur 1.027 (1.001-1.035); Squamous Epithelial Cell Urine None Seen /hpf (Few); WBC Urine 21-50 /hpf (0-3); pH Urine 5.5 (5.0-9.0)
--- OUTSIDE RECORDS SUMMARY | 2025-03-22 21:57 | XMS_ITS | Encounter Summary ---
Author Name [facility] [place] [facility] [place] Address [address] [place] [address] Care Team Providers Care Nutritional Health Coach Name Role Phone VERNA BARRERA Primary Care Provider Unavailabl e Insurance Providers: All historical and current Section Date Range: From patient's date of to the date document was created. This section includes the names of all active insurance providers for the patient. Insurance Provider Type of Coverage Plan Name Start of Policy Coverage End of Policy Coverage Group Number Member ID Insurance Provider's Telephone Number Policy Smith's Name Patient's Relationship to Policy Smith MEDICAID (WNR) MEDICAID MEDIC AID (WNR) Oct 23, 2016 MEDICAI D [id number] [phone] GERDA NUNES PATIENT Selected Encounter This section includes the information on record at [place] for the Encounter. Date/Time Encounter Type Encounter Description Reason Provider Source Oct 22, 2024 11:30 AM OFFICE O/P EST MOD 30 MIN ONCOLOGY/TUMOR ICD-10-CM E61.1 Iron deficiency EZ TAPIA Cecile Encounter Template Text not used by [place] Assessments - Encounter Diagnoses This section includes the primary and secondary diagnoses documented for the Encounter. Date/Time Primary/Secondary Diagnosis Diagnosis Name Provider Source Oct 22, 2024 02:56 PM PRIMARY Iron deficiency EZ TAPIA [facility] Plan of Treatment: Future Appointments (+ 6 months) and Future Tests (+/- 45 days) The Plan of Treatment section includes future care activities for the patient from [facility] [place] [facility] This section includes future appointments and future orders which are active, pending or scheduled. Future Appointments This section includes appointments that were scheduled to occur 6 months from the date of the Encounter, up to a maximum of 20 appointments. The data comes from all [facility]. Appointment Date/Time Appointment Type Appointme nt Facility Name Nov 07, 2024 08:41 AM AMBULATORY - MEDICINE [facility] Nov 12, 2024 10:30 AM AMBULATORY - MEDICINE [facility] Nov 14, 2024 09:30 AM AMBULATORY - MEDICINE [facility] Nov 26, 2024 12:30 PM AMBULATORY - SURGERY [facility] Dec 17, 2024 06:28 PM AMBULATORY - MEDICINE [facility] Jan 02, 2025 01:00 PM AMBULATORY - PSYCHIATRY [facility] Jan 07, 2025 11:30 AM AMBULATORY - MEDICINE [facility] Apr 18, 2025 02:30 PM AMBULATORY - PSYCHIATRY [facility] Active, Pending, and Scheduled Orders This section includes a listing of several types of active, pending, and scheduled orders, including clinic medications orders, diagnostic test orders, procedure orders and consult orders; where the start date of the order is 45 days before the date of the Encounter or 45 days after the date of theEncounter. The data comes from all [facility]. Test Date/Time Test Type Test Details Facility Name Sep 24, 2024 03:02 PM Laboratory - Chemi stry Order TSH W/ REFLEX FT4 (STL) GREEN LI-HEP PLASMA [facility] Nov 07, 2024 09:39 AM Laboratory - Microbiology Order BLOOD CULT (SET 1) B D BLD. BOTTLE BLOOD [facility] Nov 07, 2024 09:39 AM Laboratory - Microbiology Order BLOOD CULT (SET 2) B D BLD. BOTTLE (SET 2) BLOOD [facility] Lab Results: +/- 30 days of the encounter This section includes the Chemistry and Hematology Lab Results on record with [place] for the patient. Radiology Reports and Pathology Reports are provided separately, in subsequent sections. Lab Results This section contains the Chemistry/Hematology Results that were resulted 30 days before or 30 daysafter the date of the Encounter. Date/Time Source Result Type Result - Unit Interpretation Reference Range Specimen Type Comment Nov 08, 2024 05:42 AM [facility] RENAL PANEL PLASMA Specimen Type: PLASMA Comment: No hemolysis noted. Ordering Provider: SIMI WALTERS Report Released Date/Time: Nov 07, 2024 11:32 PM Reporting Lab: [facility] [address] [place] [address] Performing Lab: [address] [address] CREATININE 0.79 mg/dL 0.6-1.1 UREA NITROGEN 21.2 mg/dL 9.0-25.0 GLUCOSE 87 mg/dL 72-99 SODIUM 142 meq/L 136-145 POTASSIUM 3.9 meq/L 3.5-5 CHLORIDE 106 meq/L 98-107 CARBON DIOXIDE 27 meq/L 22-31 CALCIUM 9.4 mg/dL 8.4-10.4 PHOSPHOROUS 4.9 mg/dL H 2.3-4.7 ALBUMIN 3.6 g/dL 3.4-5 EGFR (CKD-EPI 2020) 92.2 >60 Nov 08, 2024 05:42 AM [facility] MAGNESIUM PLASMA Specimen Type: PLASM A Comment: No hemolysis noted. Ordering Provider: SIMI WALTERS Report Released Date/Time: Nov 07, 2024 11:32 PM Reporting Lab: [address] [address] Performing Lab: [address] [address] MAGNESIUM 2.0 mg/dL 1.6-2.6 Nov 08, 2024 05:42 AM [facility] CBC BLOOD Specimen Type: BLOOD No comment entered. Ordering Provider: SIMI WALTERS Report Released Date/Time: Nov 07, 2024 11:32 PM Reporting Lab: [address] [address] Performing Lab: [facility] [place] [address] [address] WBC 6.3 10*3/uL 3.6-11.2 RBC 4.40 10*6/uL 3.60-5.00 HGB 13.1 g/dL 11.0-14.9 HCT 40.2 32.6-43.4 MCV 91.4 fL 80.0-100.0 MCH 29.8 pg 27.0-34.0 MCHC 32.6 g/dL L 33.0-36.0 PLT 321 10*3/uL 150-400 MPV 10.4 fL 7.5-11.2 RDW 13.0 11.8-15.1 LYMPHOCYTES, AUTO % 43 MONOCYTES, AUTO % 7 NEUTROPHILS, AUTO % 47 EOSINOPHILS, AUTO % 3 BASOPHILS, AUTO % 1 LYMPHOCYTES, ABSOLUTE 2.70 10*3/uL 0.77- 4.50 MONOCYTES, ABSOLUTE 0.46 10*3/uL 0.19-0. 80 NEUTROPHILS, ABSOLUTE 2.95 10*3/uL 2.10- 8.00 EOSINOPHILS, ABSOLUTE 0.16 10*3/uL 0.00- 0.60 BASOPHILS, ABSOLUTE 0.06 10*3/uL 0.00-0. 20 Nov 08, 2024 05:00 AM [facility] MRSA SURVL NARES DNA NARES Specimen Type: NAILA ES Comment: Qualitative real-time PCR test for the rapid detection of methicillin-resistant Staphylococcus aureus (MRSA) DNA from nasal swabs. A negative result does not preclude infection with the agent(s) tested and should not be used as the sole basis for treatment or other patient management decisions. A positive test does not necessarily indicate the presence of viable organisms, following bacterial culture to recover the organism for further characterization and susceptibility testing. All results must be combined with clinical observations, patient history, and epidemiological information for final interpretation. Ordering Provider: ROSHAN DE LA FUENTE Report Released Date/Time: Nov 07, 2024 11:32 PM Reporting Lab: [address] [address] Performing Lab: [address] [address] MRSA SURVL NARES DNA Negative Negative Nov 07, 2024 12:35 PM [facility] URINE DRUG SCREEN (STL) URINE Specimen Type: URINE Comment: The cut-off value for Fentanyl was laboratory developed and its performance characteristics confirmed by the [facility] laboratory thru method comparison with reference laboratory and medication chart review. The laboratory is regulated under CLIA as qualified to perform high-complexity testing. Fentanyl is used for clinical purposes in conjunction with other laboratory tests. Ordering Provider: SUKHDEEP HENRY Report Released Date/Time: Nov 07, 2024 09:39 AM Reporting Lab: [address] [address] Performing Lab: [address] [address] ETHANOL <10 mg/dL 0-9 AMPHET/METHAMPHETAMINE Negative ng/mL COCAINE METABOLITES Negative ng/mL BENZODIAZEPINES (STL) POSITIVE ng/mL CANNABINOIDS Negative ng/mL METHADONE Negative ng/mL OPIATES Negative ng/mL CREATININE URINE/OTHERS 107.3 mg/dL 47-1 10 OXYCODONE (YHGNR-HYD-YA) Negative ng/mL BUPRENORPHINE (STL-PB-MA) Negative ng/mL FENTANYL (STL) Negative ng/mL Nov 07, 2024 12:35 PM [facility] URINALYSIS (STL-PB) URINE Specimen Type: URIN E No comment entered. Ordering Provider: SUKHDEEP HENRY Report Released Date/Time: Nov 07, 2024 09:40 AM Reporting Lab: [address] [address] Performing Lab: [address] [address] URINE COLOR Yellow Yellow U.BILIRUBIN Negative mg/dL Negative U.PH 6.0 5.0-8.0 URINE WBC/HPF 6 /[HPF] H 0-5 URINE RBC/HPF 11 /[HPF] H 0-5 APPEARANCE Turbid Clear U.NITRITE Negative mg/dL Negative SQUAMOUS EPITH. 2 /[HPF] 0-5 MUCUS FEW /[LPF] Negative-Rare HYALINE CASTS 1 /[LPF] 0-5 URN.GLUCOSE Normal mg/dL Negative URN.PROTEIN 30 mg/dL H URN.UROBILINOGEN Normal mg/dL Normal URN.BLOOD Negative mg/dL Negative-Trace URN.KETONES Negative mg/dL Negative-Trac e URN.LEUK.EST. 25 mg/dL H Negative-Trace URN.SPECIFIC GRAVITY 1.023 Nov 07, 2024 11:[address] [facility] SEROTONIN SERUM Specimen Type: SERUM Comment: This test was developed and its analytical performance characteristics have been determined by [employer]. It has not been cleared or approved by FDA. This assay has been validated pursuant to the CLIA regulations and is used for clinical purposes. Test performed by [employer] [place] [address] [employer]: Lois Valenzuela MD,PHD,JESSICA Test Reported by [facility] [employer] [facility], [address] [place] [address] Remi Dos Santos M.D., Ph.D., Director of Laboratories , CLIA [id number] This test was developed and its analytical performance characteristics have been determined by [employer]. It has not been cleared or approved by FDA. This assay has been validated pursuant to the CLIA regulations and is used for clinical purposes. Test performed by [employer] [place] [address] [employer]: Lois Valenzuela MD,PHD,JESSICA Test Reported by [facility] [employer] [facility], [address] [place] [address] Remi Dos Santos M.D., Ph.D., Director of Laboratories , CLIA [id number] Ordering Provider: SUKHDEEP HENRY Report Released Date/Time: Nov 07, 2024 10:04 AM Reporting Lab: [facility] [address] [facility] [address] Performing Lab: [facility] [address] [place] [address] SEROTONIN 16 ng/mL L 56-244 Nov 07, 2024 11:22 AM [facility] TSH (MA-PB) SERUM Specimen Type: SERUM No comment entered. Ordering Provider: SUKHDEEP HENRY Report Released Date/Time: Nov 07, 2024 09:56 AM Reporting Lab: [address] [address] Performing Lab: [address] [address] TSH 3.321 u[IU]/mL 0.47-5 Nov 07, 2024 09:57 AM [facility] COMPREHENSIVE METABOLIC PANEL PLASMA Specimen Type: PLASMA Comment: No hemolysis noted. Ordering Provider: MANNY GORDON Report Released Date/Time: Nov 07, 2024 09:15 AM Reporting Lab: [address] [address] Performing Lab: [address] [address] CREATININE 0.84 mg/dL 0.6-1.1 UREA NITROGEN 20.2 mg/dL 9.0-25.0 GLUCOSE 125 mg/dL H 72-99 SODIUM 140 meq/L 136-145 POTASSIUM 3.6 meq/L 3.5-5 CHLORIDE 105 meq/L 98-107 CARBON DIOXIDE 20 meq/L L 22-31 CALCIUM 10.0 mg/dL 8.4-10.4 PROTEIN 7.9 g/dL 6-8.6 ALBUMIN 4.4 g/dL 3.4-5 TOTAL BILIRUBIN 0.3 mg/dL 0.2-1.2 ALKALINE PHOSPHATASE 84 U/L 40-150 AST/SGOT 30 U/L 5-34 ALT/SGPT 24 U/L 8-40 EGFR (CKD-EPI 2020) 85.7 >60 Nov 07, 2024 09:57 AM [facility] CBC BLOOD Specimen Type: BLOOD No comment entered. Ordering Provider: MANNY GORDON Report Released Date/Time: Nov 07, 2024 09:14 AM Reporting Lab: [address] [address] Performing Lab: [address] [address] WBC 10.4 10*3/uL 3.6-11.2 RBC 4.99 10*6/uL 3.60-5.00 HGB 15.2 g/dL H 11.0-14.9 HCT 44.6 H 32.6-43.4 MCV 89.4 fL 80.0-100.0 MCH 30.5 pg 27.0-34.0 MCHC 34.1 g/dL 33.0-36.0 PLT 386 10*3/uL 150-400 MPV 10.4 fL 7.5-11.2 RDW 12.6 11.8-15.1 LYMPHOCYTES, AUTO % 24 MONOCYTES, AUTO % 6 NEUTROPHILS, AUTO % 68 EOSINOPHILS, AUTO % 1 BASOPHILS, AUTO % 1 LYMPHOCYTES, ABSOLUTE 2.50 10*3/uL 0.77- 4.50 MONOCYTES, ABSOLUTE 0.66 10*3/uL 0.19-0. 80 NEUTROPHILS, ABSOLUTE 7.04 10*3/uL 2.10- 8.00 EOSINOPHILS, ABSOLUTE 0.09 10*3/uL 0.00- 0.60 BASOPHILS, ABSOLUTE 0.09 10*3/uL 0.00-0. 20 Nov 07, 2024 09:49 AM [facility] LIPASE PLASMA Specimen Type: PLASM A No comment entered. Ordering Provider: SUKHDEEP HENRY Report Released Date/Time: Nov 07, 2024 09:39 AM Reporting Lab: [address] [address] Performing Lab: [address] [address] LIPASE 35 U/L 8-78 Nov 07, 2024 09:49 AM [facility] ETHANOL SERUM/PLASMA (STL) PLASMA Specimen Typ e: PLASMA No comment entered. Ordering Provider: SUKHDEEP HENRY Report Released Date/Time: Nov 07, 2024 09:39 AM Reporting Lab: [address] [address] Performing Lab: [address] [address] ETHANOL SERUM/PLASMA (STL) <10 mg/dL 0-9 Nov 07, 2024 09:49 AM [facility] RESPIRATORY PCR PANEL NASOPHARYNX Specimen Type: NASOPHARYNX Comment: The [employer] RP Panel combines nested multiplex PCR and DNA melting analysis for the simultaneous qualitative detection and identification of multiple respiratory viral and bacterial nucleic acids. A negative result does not preclude infection with the agent(s) tested and should not be used as the sole basis for treatment or other patient management decisions. Detection of organism target(s) does not imply that the corresponding organisms are infectious or are the causative agents for clinical symptoms. Results from this test must be correlated with the clinical history, epidemiological data, and other data available to the clinician evaluating the patient. STEPH NPC IIICharmaine Welsh, (412) Ordering Provider: SUKHDEEP HENRY Report Released Date/Time: Nov 07, 2024 09:39 AM Reporting Lab: [place] [address] [address] [facility] [address] Performing Lab: [address] [address] *Adenovirus (BF) Not Detected Not Detect ed *Coronavirus HKU1 (BF) Not Detected Not Detected *Coronavirus NL63 (BF) Not Detected Not Detected *Coronavirus 229E (BF) Not Detected Not Detected *Coronavirus OC43 (BF) Not Detected Not Detected *Human Metapneumovirus (BF) Not Detected Not Detected *Human Rhino/Enterovirus(BF) Not Detected Not Detected *Influenza A (BF) Not Detected Not Detec ilana *Influenza B (BF) Not Detected Not Detec ilana *Parainfluenza Virus 1 (BF) Not Detected Not Detected *Parainfluenza Virus 2 (BF) Not Detected Not Detected *Parainfluenza Virus 3 (BF) Not Detected Not Detected *Parainfluenza Virus 4 (BF) Not Detected Not Detected *Resp Syncytial Virus (BF) Not Detected Not Detected *Bordetella pertussis (BF) Not Detected Not Detected *Chlamydophilia pneumoniae (BF) Not Detected Not Detected *Mycoplasma pneumoniae (BF) Not Detected Not Detected *Bordatella parapertussis (BF) Not Detected Not Detected COVID-19 (BIOFIRE) Not Detected Not Dete cted Nov 07, 2024 09:49 AM [facility] CPK PLASMA Specimen Type: PLASM A No comment entered. Ordering Provider: SUKHDEEP HENRY Report Released Date/Time: Nov 07, 2024 09:48 AM Reporting Lab: [facility] [address] [facility] [address] Performing Lab: [facility] [address] [facility] [address] CPK 61 U/L 29-168 Oct 22, 2024 12:03 PM [facility] FERRITIN SERUM Specimen Type: SERUM No comment entered. Ordering Provider: ZE TAPIA Report Released Date/Time: Oct 22, 2024 11:52 AM Reporting Lab: [facility] [address] [facility] [address] Performing Lab: [facility] [address] [place] [address] FERRITIN 173.22 ng/mL 10-204 Oct 22, 2024 12:03 PM [facility] B12 SERUM Specimen Type: SERUM No comment entered. Ordering Provider: EZ TAPIA Report Released Date/Time: Oct 22, 2024 11:54 AM Reporting Lab: [facility] [address] [facility] [address] Performing Lab: [facility] [address] [facility] [address] B12 440 pg/mL 213-816 Oct 22, 2024 12:03 PM [facility] IRON/TIBC PROFILE SERUM Specimen Type: SERUM No comment entered. Ordering Provider: EZ TAPIA Report Released Date/Time: Oct 22, 2024 11:52 AM Reporting Lab: [facility] [address] [facility] [address] Performing Lab: [facility] [address] [place] [address] TIBC 324 ug/dL 250-450 TRANSFERRIN 259 mg/dL 173-360 IRON SATURATION 45 20-50 IRON 146 ug/dL 50-170 Oct 22, 2024 12:03 PM [facility] CBC BLOOD Specimen Type: BLOOD No comment entered. Ordering Provider: EZ TAPIA Report Released Date/Time: Oct 22, 2024 11:52 AM Reporting Lab: [facility] [address] [facility] [address] Performing Lab: [facility] [address] [place] [address] WBC 6.5 10*3/uL 3.6-11.2 RBC 4.69 10*6/uL 3.60-5.00 HGB 14.0 g/dL 11.0-14.9 HCT 41.8 32.6-43.4 MCV 89.1 fL 80.0-100.0 MCH 29.9 pg 27.0-34.0 MCHC 33.5 g/dL 33.0-36.0 PLT 304 10*3/uL 150-400 MPV 10.9 fL 7.5-11.2 RDW 13.2 11.8-15.1 LYMPHOCYTES, AUTO % 30 MONOCYTES, AUTO % 6 NEUTROPHILS, AUTO % 61 EOSINOPHILS, AUTO % 2 BASOPHILS, AUTO % 1 LYMPHOCYTES, ABSOLUTE 1.95 10*3/uL 0.77- 4.50 MONOCYTES, ABSOLUTE 0.36 10*3/uL 0.19-0. 80 NEUTROPHILS, ABSOLUTE 3.95 10*3/uL 2.10- 8.00 EOSINOPHILS, ABSOLUTE 0.14 10*3/uL 0.00- 0.60 BASOPHILS, ABSOLUTE 0.05 10*3/uL 0.00-0. 20 Sep 26, 2024 07:39 AM [facility] LDH PLASMA Specimen Type: PLASM A No comment entered. Ordering Provider: VERNA BARRERA Report Released Date/Time: Sep 26, 2024 07:39 AM Reporting Lab: [facility] [address] [facility] [address] Performing Lab: [facility] [address] [facility] [address] LDH 302 U/L H 125-243 Sep 26, 2024 07:39 AM [facility] B12 SERUM Specimen Type: SERUM No comment entered. Ordering Provider: VERNA BARRERA Report Released Date/Time: Sep 26, 2024 07:39 AM Reporting Lab: [facility] [address] [facility] [address] Performing Lab: [facility] [address] [facility] [address] B12 228 pg/mL 213-816 Sep 26, 2024 07:39 AM [facility] IRON/TIBC PROFILE SERUM Specimen Type: SERUM No comment entered. Ordering Provider: VERNA BARRERA Report Released Date/Time: Sep 26, 2024 07:39 AM Reporting Lab: [facility] [address] [facility] [address] Performing Lab: [facility] [address] [facility] [address] TIBC 313 ug/dL 250-450 TRANSFERRIN 250 mg/dL 173-360 IRON SATURATION 49 20-50 IRON 154 ug/dL 50-170 Sep 26, 2024 07:39 AM [facility] RETICULOCYTE PANEL BLOOD Specimen Type: BLOOD No comment entered. Ordering Provider: VERNA BARRERA Report Released Date/Time: Sep 26, 2024 07:39 AM Reporting Lab: [facility] [address] [facility] [address] Performing Lab: [facility] [address] [facility] [address] RETIC RATIO 1.69 0.50-2.30 IRF 6.6 2.3-13.4 RETICULOCYTE HEMOGLOBIN EQUIVALENT 33.8 pg 28.2-36.6 RETIC COUNT,ABS 0.083 10*6/uL 0.022-0.10 1 Vital Signs: All taken on the encounter date This section contains inpatient and outpatient Vital Signs collected on the date of the Encounter. Date/Time Temperature Pulse Blood Pressure Respiratory Rate SP02 Pain Height Weight Body Mass Index Source Oct 22, 2024 11:28 AM 97.9 79 128/81 16 [address] 185.[address] [facility] Social History: Smoking Status (Most current) and Tobacco Use (All prior to encounter date) This section includes the most current, and the historical, smoking and tobacco- related health factors from the [facility] where the Encounter took place. Current Smoking Status This section includes the most current smoking, or tobacco-related health factor, from the [place] facility where the Encounter took place. Date/Time Current Smoking Status Comment Jessica ity Jul 17, 2024 03:18 AM ORYX ADMIT TOBACCO SCREEN NO [facility] Tobacco Use History This section includes a history of the smoking, or tobacco-related health factors, that were collected on or before the date of the Encounter. The data comes from the [place] facility where the Encounter took place. Date/Time Smoking Status/Tobacco Use Comment F acility Nov 09, 2023 06:45 AM ORYX ADMIT TOBACCO SCREEN NO [facility] May 25, 2022 11:42 AM ORYX ADMIT TOBACCO SCREEN NO [facility] May 13, 2022 08:14 PM ORYX ADMIT TOBACCO SCREEN NO [facility] Apr 07, 2022 03:34 AM ORYX ADMIT TOBACCO SCREEN REFUSED [facility] Dec 20, 2021 12:44 PM ORYX ADMIT TOBACCO SCREEN NO [facility] Aug 23, 2021 08:22 PM ORYX ADMIT TOBACCO SCREEN NO [facility] Aug 12, 2021 06:24 PM ORYX ADMIT TOBACCO SCREEN NO [facility] May 12, 2008 06:16 PM LIFETIME NON-USER OF TOBACCO [facility] Jun 28, 2007 01:18 PM LIFETIME NON-USER OF TOBACCO [facility] May 03, 2006 10:56 AM LIFETIME NON-TOBACCO USER [facility] Dec 03, 2003 08:16 AM LIFETIME NON-TOBACCO USER [facility] Radiology Reports: +/- 30 days of the encounter Radiology Reports For cases when an order for radiology services may have been completed prior to the date of the Encounter, the report list includes the Radiology Reports that were completed up to 30 days before dateof the Encounter. For cases when an order for radiology services may have been completed after the date of the Encounter, the report list also includes the Radiology Reports that were completed up to30 days after date of the Encounter. The data comes from all [facility] facilities. Date/Time Radiology Report Provider Source Nov 07, 2024 04:[address] HEAD W/O CONT: GERDA NUNES [id number] 1975 F Exm Date: NOV 07, 2024@16:16 Req Phys: SUKHDEEP HENRY Loc: BIN-EMERGENCY DEPT 2ND SHIFT (R Img Loc: BIN-CT IMAGING BIN Service: Unknown Screen: Patient answered no [facility], [address] [place] [address] (Case [id number] COMPLETE) CT HEAD W/O CONT (CT Detailed) CPT:43859 Reason for Study: headache Clinical History: Responsible Attending: Reanna Attending Contact Number: [id number] Resident Contact Number: Headache Allergies listed in CPRS chart: VITAMIN B12 1000MCG, PANTOPRAZOLE, AMOXICILLIN, FLONASE NASAL SOLUTION PREGABALIN, METHOCARBAMOL Creatinine: CREATININE 0.84 mg/dL 11/07/2024 09:57 /eGFR: STL EGFR (within one year). CREATININE 0.84 mg/dL (11/07/24 09:57) Wt: 185.6 lb [84.19 kg] (10/22/2024 11:28) History of: Renal failure, chronic or acute renal disease: NO Report Status: Verified Date Reported: NOV 07, 2024 Date Verified: NOV 07, 2024 Vp Training E-Sig:/ES/Geneva Egan MD Report: CT HEAD W/O CONT CASE #: [id number] DATE:11/07/2024 4:46 PM CLINICAL HISTORY:headache COMPARISON: 6 12/31/2023, 08/23/2021 TECHNIQUE: CT HEAD W/O CONT FINDINGS: Beam hardening streak artifact affects the lower scan slices. Brain appears developmentally unremarkable. No evidence for acute or more chronic hemorrhage. The calvarium and visualized facial bones are intact. No mass effect or midline shift. No acute sinusitis or mastoiditis. Clear middle ear spaces. Intact ossicular chains. Impression: No acute intracranial hemorrhage or suspicious interval change. Primary Interpreting Staff: Geneva Egan MD, Radiologist (Vp Training) /[facility] Nov 07, 2024 09:44 AM CHEST PORTABLE: GERDA NUNES [facility] [id number] -1975 F Exm Date: NOV 07, 2024@09:44 Req Phys: SUKHDEEP HENRY Loc: -EMERGENCY DEPT 2ND SHIFT (R Img Loc: -MAIN RADIOLOGY SUITE Service: Unknown Screen: Patient answered no [facility], [facility] [address] [place] [address] (Case [id number] COMPLETE) CHEST PORTABLE (RAD Detailed) CPT:42022 Proc Modifiers : Portable Reason for Study: , cough Clinical History: Cough and fever Report Status: Verified Date Reported: NOV 07, 2024 Date Verified: NOV 07, 2024 Vp Training E-Sig:/ES/SYED MCGINNIS MD Report: Case #[id number]. Chest examination. COMPARISON: 02/26/2024. Finding: Portable AP view of the chest examination shows normal cardiac and aortic shadow. Trachea is in the midline. Lungs are well aerated. No evidence of pulmonary vascular congestion, consolidation or mass. No evidence of pleural effusion or pneumothorax. Impression: No active cardiopulmonary disease. Primary Interpreting Staff: SYED MCGINNIS MD, Staff Physician - Radiologist (Vp Training) /[facility]ED [facility] Pathology Reports: +/- 30 days of the encounter Pathology Reports For cases when an order for pathology services may have been completed prior to the date of the Encounter, the report list includes the Pathology Reports that were completed up to 30 days before dateof the Encounter. For cases when an order for pathology services may have been completed after the date of the Encounter, the report list also includes the Pathology Reports that were completed up to30 days after date of the Encounter. The data comes from all [place] treatment facilities. Date/Time Pathology Report Provider Source Nov 07, 2024 12:35 PM LR MICROBIOLOGY RE PORT: Accession [UID]: [id number] [[id number]] Received: Nov 07, 2024@15:52 Collection sample: URINE,CLEAN CATCH Collection date: Nov 07, 2024 12:35 Site/Specimen: URINE Provider: SUKHDEEP HERNY Test(s) ordered: C&S URINE..................... completed: Nov 08, 2024 22:06 * BACTERIOLOGY FINAL REPORT => Nov 08, 2024 22:08 TECH CODE: [id number] Bacteriology Remark(s): CULTURE SHOWS <10,000 CFU/ML NATURE OF GROWTH SUGGESTS CONTAMINATION OR DELAY IN TRANSPORT. There will be no work up. AJK 11/08/24 =--=--=--=--=--=--=--=--=--= --=--=--=--=--=--=--=--=--=- -=--=--=--=--=--=--=-- Performing Laboratory: Bacteriology Report Performed By: [facility] CLIA# [id number] [address] [facility] [address] [place] [address] [facility] Encounter Notes: All associated encounter notes This section contains the clinical notes associated to the Encounter. Date/Time Encounter Note(s) Provider Source Oct 22, 2024 11:41 AM HEMATOLOGY AND ONC OLOGY CONSULT: LOCAL TITLE: HEMATOLOGY ONCOLOGY OUTPATIENT CONSULT [facility] STANDARD TITLE: HEMATOLOGY AND ONCOLOGY CONSULT DATE OF NOTE: OCT 22, 2024@11:41 ENTRY DATE: OCT 22, 2024@11:41:24 AUTHOR: EZ TAPIA EXP COSIGNER: URGENCY: STATUS: COMPLETED REASON FOR CONSULT HISTORY OF PRESENTING ILLNESS Vivienne Nunes is a 49 YOF with h/o hypothroidism, MASLD, anxiety, depression fibromyalgia, chronic pain syndrome, RLS/PLMD, BLE fasciotomies for compatment syndrome, B12 deficiency, obesity s/p Macarena-en-Y bypass 05/2023, and non-anemic iron deficiency. admitted 06/2024 for acute on chronic leg pain of unknown origin. Found to be iron deficient with ferritin 11, Hgb ~13. Treated with IV iron dextran 1g and reports temporary improvement of leg symptoms. Has previously been diagnosed/treated for ID with PO iron though did not tolerate this well, describes dyspepsia and ?hives. B12 was low/borderline at that time as well - she notes she is on B12 injections (predating Macarena-en-Y) per PCP following intolerance of PO B12 d/t possible hives as well. Her leg symptoms are starting to escalate again. She also notices positional lightheadedness/dizziness, fatigue, some WALL, and issues with blood sugar control/hypoglycemia (has been carrying snacks/peanut butter in case). She denies any obvious blood loss - no hematuria, no menses, no melena/hematochezia, no blood donation. Had a cscopy in 2019 with HP x1, more recent EGD including esophageal dilation post bariatric surgery. REVIEW OF SYSTEMS: A clinically relevant ROS was completed and documented as per HPI PAST MEDICAL HISTORY 1) Family history of ischemic heart disease (SNOMED CT 708939136) 2) Migraine (SNOMED CT 57513364) 3) Vitamin D deficiency 4) Hypothyroidism 5) Low back pain 6) Depression 7) Mastodynia 8) Lumbar radiculopathy 9) Irritable bowel syndrome characterized by alternating bowel habit 10) Fibromyalgia 11) Chronic pain in female pelvis 12) Kidney stone 13) Insomnia 14) Compartment syndrome 15) Obesity (SCT [id number]) 16) Arthritis 17) Intermittent palpitations 18) Chronic obstructive lung disease 19) Obstructive sleep apnea of adult 20) Poor pelvic muscle tone 21) Cervicalgia 22) Bacterial cellulitis 23) Overactive bladder MEDICATIONS Active Outpatient Medications (including Supplies): Active Outpatient Medications Status 1) DULOXETINE HCL 60MG EC CAP TAKE ONE CAPSULE BY MOUTH ONCE A ACTIVE DAY DO NOT ABRUPTLY DISCONTINUE MEDICATION. TO BE TAKEN ALONG WITH 30MG FOR TOTAL OF 90MG DAILY Indication: FOR DEPRESSION 2) FOLIC ACID 1MG TAB TAKE ONE TABLET BY MOUTH ONCE A DAY ACTIVE Indication: FOR FOLIC ACID SUPPLEMENTATION 3) LEVOTHYROXINE NA (SYNTHROID) 175MCG TAB TAKE ONE TABLET BY ACTIVE MOUTH EVERY MORNING BEFORE A MEAL TAKE 30 MINUTES BEFORE FOOD. TAKE SEPARATELY FROM ALL OTHER MEDICATIONS. Indication: FOR HYPOTHYROIDISM 4) LIDOCAINE 5% OINT APPLY SPARINGLY TO AFFECTED AREA(S) ONCE A ACTIVE DAY NEEDED (EXTERNAL USE ONLY) (WASH HANDS THOROUGHLY AFTER USE) Indication: FOR PAIN 5) SYRINGE 3ML/NDL 23G 1.5IN USE 1 SYRINGE INTRAMUSCULARLY ACTIVE EVERY MONTH FOR CYANOCOBALAMIN ADMINISTRATION Indication: FOR INJECTION 6) TIZANIDINE HCL 4MG TAB TAKE ONE TABLET BY MOUTH THREE TIMES ACTIVE A DAY NEEDED Indication: FOR SPASTICITY 7) TRAZODONE HCL 100MG TAB TAKE ONE TABLET BY MOUTH AT BEDTIME ACTIVE NEEDED Indication: FOR INSOMNIA 8) TRIAMCINOLONE ACETONIDE 0.1% CREAM APPLY SPARINGLY TO ACTIVE AFFECTED AREA(S) TWICE A DAY (EXTERNAL USE ONLY) Indication: FOR CONTACT DERMATITIS ALLERGIES VITAMIN B12 1000MCG, PANTOPRAZOLE, AMOXICILLIN, FLONASE NASAL SOLUTION PREGABALIN, GABAPENTIN, METHOCARBAMOL SOCIAL/FAMILY HISTORY , 3 kids (daughter with Crohn's requiring biologics, enteral nutrition). Lives in [facility]. No longer working. VITAL SIGNS Temperature: 97.9 F [36.6 C] (10/22/2024 11:28) Blood Pressure: 128/81 (10/22/2024 11:28) Pulse: 79 (10/22/2024 11:28) Respirations: 16 (10/22/2024 11:28) Weight: 185.6 lb [84.19 kg] (10/22/2024 11:28) BMI: 34.0 PHYSICAL EXAM General: In no apparent distress HEENT: NCAT Respiratory: Resp unlabored on RA, CTAB Cardiovascular: RRR, no C/C/E Abdomen: Soft, non-distended, non-tender, +BS Musculoskeletal: Symmetrical, ambulatory Skin: No apparent lesions Neuro: Alert and oriented w/ normal station and coordination, no focal deficits LABS WBC 4.6 10*3/uL 07/19/2024 06:00 RBC 4.82 10*6/uL 07/19/2024 06:00 HGB 14.1 g/dL 07/19/2024 06:00 HCT 43.7 H % 07/19/2024 06:00 MCV 90.7 fL 07/19/2024 06:00 MCH 29.3 pg 07/19/2024 06:00 MCHC 32.3 L g/dL 07/19/2024 06:00 RDW 13.1 % 07/19/2024 06:00 PLT 272 10*3/uL 07/19/2024 06:00 MPV 10.9 fL 07/19/2024 06:00 NEUTROPHILS, AUTO % 39 % 07/19/2024 06:00 LYMPHOCYTES, AUTO % 49 % 07/19/2024 06:00 MONOCYTES, AUTO % 6 % 07/19/2024 06:00 EOSINOPHILS, AUTO % 5 % 07/19/2024 06:00 BASOPHILS, AUTO % 1 % 07/19/2024 06:00 NEUTROPHILS, ABSOLUTE 1.81 L 10*3/uL 07/19/2024 06:00 LYMPHOCYTES, ABSOLUTE 2.27 10*3/uL 07/19/2024 06:00 MONOCYTES, ABSOLUTE 0.29 10*3/uL 07/19/2024 06:00 EOSINOPHILS, ABSOLUTE 0.21 10*3/uL 07/19/2024 06:00 BASOPHILS, ABSOLUTE 0.05 10*3/uL 07/19/2024 06:00 SODIUM 142 mEq/L 07/20/2024 06:00 POTASSIUM 4.2 mEq/L 07/20/2024 06:00 CHLORIDE 108 H mEq/L 07/20/2024 06:00 UREA NITROGEN 16.7 mg/dL 07/20/2024 06:00 CREATININE 0.81 mg/dL 07/20/2024 06:00 CALCIUM 9.6 mg/dL 07/20/2024 06:00 PROTEIN 7.2 g/dL 07/16/2024 14:30 ALBUMIN 3.7 g/dL 07/20/2024 06:00 ALKALINE PHOSPHATASE 84 U/L 07/16/2024 14:30 ALT/SGPT 12 U/L 07/16/2024 14:30 AST/SGOT 15 U/L 07/16/2024 14:30 TOTAL BILIRUBIN 0.5 mg/dL 07/16/2024 14:30 CARBON DIOXIDE 25 mEq/L 07/20/2024 06:00 GLUCOSE 99 mg/dL 07/20/2024 06:00 EGFR (CKD-EPI 2020) 89.5 07/20/2024 06:00 2.1 mg/dL (07/20/24 06:00) PHOSPHOROUS 3.9 mg/dL 07/20/2024 06:00 LDH 302 H U/L 09/26/2024 07:39 TIBC 313 ug/dL 09/26/2024 07:39 IRON 154 ug/dL 09/26/2024 07:39 FERRITIN 11.54 ng/mL 2024 06:00 B12 228 pg/mL 09/26/2024 07:39 pg/ml FOLATE (STL-OR) 8.8 ng/mL 2024 06:00 ASSESSMENT & PLAN # Non-anemic iron deficiency Noted to have ferritin 11 (Hgb ~13) during hospitalization for acute on chronic leg pain 06/2024, s/p IV iron dextran. Long-standing h/o borderline iron stores, intolerant of PO iron d/t dyspepsia. More recently, s/p bariatric surgery 05/2023. -- Update labs today including ferritin -- show adequate repletion, no indication for further IV at this time -- Add B12 given recent borderline levels -- appear improved, cont B12 mgmt with PCP -- RTC in 2-3mo for further monitoring and consideration of IV for ferritin goal >50 given potential related vs unrelated RLS Clinic contact info provided if questions/concerns in interim. /tamera/ EZ TAPIA Nurse Practitioner Signed: 10/22/2024 14:56 EZ TAPIA [facility]
--- OUTSIDE RECORDS SUMMARY | 2025-03-22 21:57 | XMS_ITS | Encounter Summary ---
Author Name [facility] [place] [facility] [place] [facility] [place] [facility] [place] Address [address] [place] [address] Care Team Providers Care Pocketbook Maker Name Role Phone VERNA BARRERA Primary Care [...] AID (WNR) Oct 23, 2016 MEDICAI D [id number] GERDA NUNES PATIENT Selected Encounter This section includes the information on record at [place] for the Encounter. Date/Time Encounter Type Encounter Description Reason Provider Source Jul 19, 2024 11:30 AM [facility] PHYSICAL THERAPY ICD-10-CM M54.32 Sciatica, left side CHAPARRITA AGUILAR Cecile Encounter Template Text not used by [place] Assessments - Encounter Diagnoses This section includes the primary and secondary diagnoses documented for the Encounter. Date/Time Primary/Secondary Diagnosis Diagnosis Name Provider Source Jul 19, 2024 01:20 PM PRIMARY Sciatica, left side [facility] Plan of Treatment: Future Appointments (+ 6 months) and Future Tests (+/- 45 days) The Plan of Treatment section includes future care activities for the patient from all [place] [facility]. This section includes future appointments and future orders which are active, pending or scheduled. Future Appointments This section includes appointments that were scheduled to occur 6 months from the date of the Encounter, up to a maximum of 20 appointments. The data comes from all [facility]. Appointment Date/Time Appointment Type Appointme nt Facility Name Jul 22, 2024 10:00 AM AMBULATORY - MEDICINE [facility] Oct 22, 2024 11:30 AM AMBULATORY - MEDICINE [facility] Nov 07, 2024 08:41 AM AMBULATORY - MEDICINE [facility] Nov 12, 2024 10:30 AM AMBULATORY - MEDICINE [facility] Nov 14, 2024 09:30 AM AMBULATORY MEDICINE [facility] Nov 26, 2024 12:30 PM AMBULATORY - SURGERY [facility] Dec 17, 2024 06:28 PM AMBULATORY - MEDICINE [facility] Jan 02, 2025 01:00 PM AMBULATORY - PSYCHIATRY [facility] Jan 07, 2025 11:30 AM AMBULATORY - MEDICINE [facility] Active, Pending, and Scheduled Orders This section includes a listing of several types of active, pending, and scheduled orders, including clinic medications orders, diagnostic test orders, procedure orders and consult orders; where the start date of the order is 45 days before the date of the Encounter or 45 days after the date of theEncounter. The data comes from all [facility]. Test Date/Time Test Type Test Details Facility Name Jul 11, 2024 04:51 PM Laboratory - Chemi stry Order TSH W/ REFLEX FT4 (STL) GREEN LI-HEP PLASMA WC [facility] Jul 12, 2024 12:00 AM Laboratory - Chemi stry Order HAPTOGLOBIN (STL) GOLD/RED SST SERUM SP [facility] Jul 12, 2024 12:00 AM Laboratory - Chemi stry Order LDH GREEN LI/HEP BLD/PLAS PLASMA SP [facility] Jul 12, 2024 12:00 AM Laboratory - Chemi stry Order FERRITIN GOLD/RED SST SERUM SP [facility] Jul 12, 2024 12:00 AM Laboratory - Chemi stry Order IRON/TIBC PROFILE GOLD/RED SST SERUM SP [facility] Jul 12, 2024 12:00 AM Laboratory - Chemi stry Order B12 GOLD/RED SST SERUM SP [facility] Jul 12, 2024 12:00 AM Laboratory - Chemi stry Order RETIC RATIO BLOOD SP ONCE . [facility] Jul 12, 2024 12:00 AM Laboratory - Chemi stry Order FOLATE (STL-MA) GOLD/RED SST SERUM SP [facility] Jul 16, 2024 11:36 PM Laboratory - Chemi stry Order MRSA SURVL NARES DNA NARES WC [facility] Lab Results: +/- 30 days of the encounter This section includes the Chemistry and Hematology Lab Results on record with [facility] for the [facility]. Radiology Reports and Pathology Reports are provided separately, in subsequent sections. Lab Results This section contains the Chemistry/Hematology Results that were resulted 30 days before or 30 daysafter the date of the Encounter. Date/Time Source Result Type Result - Unit Interpretation Reference Range Specimen Type Comment Jul 20, 2024 11:28 AM [facility] GLUCOSE,BLOOD-poct (STL) BLOOD Specimen Type: BLOOD Comment: Test Performed by: [id number] Meter #: [id number] Ordering Provider: KRYSTIAN KUMARI Report Released Date/Time: Jul 20, 2024 11:50 AM Reporting Lab: [facility] [address] [facility] [address] Performing Lab: [facility] [address] [facility] [address] GLUCOSE,BLOOD-poct (STL) 78 mg/dL 72-99 Jul 20, 2024 08:02 AM [facility] MAGNESIUM PLASMA Specimen Type: PLASM A Comment: No hemolysis noted. Ordering Provider: MICHAEL FELIZ Report Released Date/Time: Jul 17, 2024 03:01 PM Reporting Lab: [place] [id number] [facility] [address] Performing Lab: [facility] [address] [facility] [address] MAGNESIUM 2.1 mg/dL 1.6-2.6 Jul 20, 2024 08:02 AM [facility] RENAL PANEL PLASMA Specimen Type: PLASM A Comment: No hemolysis noted. Ordering Provider: MICHAEL FELIZ Report Released Date/Time: Jul 17, 2024 03:01 PM Reporting Lab: [address] [address] Performing Lab: [address] [address] CREATININE 0.81 mg/dL 0.6-1.1 UREA NITROGEN 16.7 mg/dL 9.0-25.0 GLUCOSE 99 mg/dL 72-99 SODIUM 142 meq/L 136-145 POTASSIUM 4.2 meq/L 3.5-5 CHLORIDE 108 meq/L H 98-107 CARBON DIOXIDE 25 meq/L 22-31 CALCIUM 9.6 mg/dL 8.4-10.4 PHOSPHOROUS 3.9 mg/dL 2.3-4.7 ALBUMIN 3.7 g/dL 3.4-5 EGFR (CKD-EPI 2020) 89.5 >60 Jul 19, 2024 04:23 PM [facility] GLUCOSE,BLOOD-poct (STL) BLOOD Specimen Type: BLOOD Comment: Test Performed by: [id number] Meter #: [id number] Ordering Provider: KRYSTIAN KUMARI Report Released Date/Time: Jul 19, 2024 04:54 PM Reporting Lab: [address] [address] Performing Lab: [address] [address] GLUCOSE,BLOOD-poct (STL) 74 mg/dL 72-99 Jul 19, 2024 11:32 AM [facility] GLUCOSE,BLOOD-poct (STL) BLOOD Specimen Type: BLOOD Comment: Test Performed by: [id number] Meter #: [id number] Ordering Provider: QUOCMED Report Released Date/Time: Jul 19, 2024 11:55 AM Reporting Lab: [address] [address] Performing Lab: [facility] [address] [facility] [address] GLUCOSE,BLOOD-poct (STL) 78 mg/dL 72-99 Jul 19, 2024 06:59 AM [facility] MAGNESIUM PLASMA Specimen Type: PLASM A Comment: No hemolysis noted. Ordering Provider: MICHAEL FELIZ Report Released Date/Time: Jul 17, 2024 03:01 PM Reporting Lab: [facility] [address] [facility] [address] Performing Lab: [place] [address] [facility] [address] MAGNESIUM 2.1 mg/dL 1.6-2.6 Jul 19, 2024 06:59 AM [facility] RENAL PANEL PLASMA Specimen Type: PLASM A Comment: No hemolysis noted. Ordering Provider: MICHAEL FELIZ Report Released Date/Time: Jul 17, 2024 03:01 PM Reporting Lab: [facility] [address] [facility] [address] Performing Lab: [place] [address] [facility] [address] CREATININE 0.88 mg/dL 0.6-1.1 UREA NITROGEN 19.2 mg/dL 9.0-25.0 GLUCOSE 52 mg/dL L 72-99 SODIUM 143 meq/L 136-145 POTASSIUM 3.5 meq/L 3.5-5 CHLORIDE 108 meq/L H 98-107 CARBON DIOXIDE 26 meq/L 22-31 CALCIUM 10.0 mg/dL 8.4-10.4 PHOSPHOROUS 3.8 mg/dL 2.3-4.7 ALBUMIN 4.1 g/dL 3.4-5 EGFR (CKD-EPI 2020) 81.0 >60 Jul 19, 2024 06:59 AM [facility] CBC BLOOD Specimen Type: BLOOD No comment entered. Ordering Provider: MICHAEL FELIZ Report Released Date/Time: Jul 17, 2024 03:01 PM Reporting Lab: [place] [address] [facility] [address] Performing Lab: [facility] [address] [facility] [address] WBC 4.6 10*3/uL 3.6-11.2 RBC 4.82 10*6/uL 3.60-5.00 HGB 14.1 g/dL 11.0-14.9 HCT 43.7 H 32.6-43.4 MCV 90.7 fL 80.0-100.0 MCH 29.3 pg 27.0-34.0 MCHC 32.3 g/dL L 33.0-36.0 PLT 272 10*3/uL 150-400 MPV 10.9 fL 7.5-11.2 RDW 13.1 11.8-15.1 LYMPHOCYTES, AUTO % 49 MONOCYTES, AUTO % 6 NEUTROPHILS, AUTO % 39 EOSINOPHILS, AUTO % 5 BASOPHILS, AUTO % 1 LYMPHOCYTES, ABSOLUTE 2.27 10*3/uL 0.77- 4.50 MONOCYTES, ABSOLUTE 0.29 10*3/uL 0.19-0. 80 NEUTROPHILS, ABSOLUTE 1.81 10*3/uL L 2.10- 8.00 EOSINOPHILS, ABSOLUTE 0.21 10*3/uL 0.00- 0.60 BASOPHILS, ABSOLUTE 0.05 10*3/uL 0.00-0. 20 2024 06:35 AM [facility] MAGNESIUM PLASMA Specimen Type: PLASM A Comment: No hemolysis noted. Ordering Provider: MICHAEL FELIZ Report Released Date/Time: Jul 17, 2024 03:01 PM Reporting Lab: [address] [address] Performing Lab: [address] [address] MAGNESIUM 2.2 mg/dL 1.6-2.6 2024 06:35 AM [facility] FERRITIN SERUM Specimen Type: SERUM No comment entered. Ordering Provider: MICHAEL FELIZ Report Released Date/Time: Jul 17, 2024 03:01 PM Reporting Lab: [address] [address] Performing Lab: [address] [address] FERRITIN 11.54 ng/mL 10-204 2024 06:35 AM [facility] IRON/TIBC PROFILE SERUM Specimen Type: SERUM No comment entered. Ordering Provider: MICHAEL FELIZ Report Released Date/Time: Jul 17, 2024 03:01 PM Reporting Lab: [facility] [address] [facility] [address] Performing Lab: [facility] [address] [facility] [address] TIBC 420 ug/dL 250-450 TRANSFERRIN 336 mg/dL 173-360 IRON SATURATION 11 L 20-50 IRON 45 ug/dL L 50-170 2024 06:35 AM [facility] B12 SERUM Specimen Type: SERUM No comment entered. Ordering Provider: MICHAEL FELIZ Report Released Date/Time: Jul 17, 2024 03:01 PM Reporting Lab: [facility] [address] [facility] [address] Performing Lab: [facility] [address] [facility] [address] B12 194 pg/mL L 213-816 2024 06:35 AM [facility] FOLATE (L-MA) SERUM Specimen Type: SERUM No comment entered. Ordering Provider: MICHAEL FELIZ Report Released Date/Time: Jul 17, 2024 03:01 PM Reporting Lab: [facility] [address] [facility] [address] Performing Lab: [facility] [address] [facility] [address] FOLATE (L-MA) 8.8 ng/mL 7-20 2024 06:35 AM [facility] VITAMIN D, 25-HYDROXY SERUM Specimen Type: SE RUM No comment entered. Ordering Provider: MICHAEL FELIZ Report Released Date/Time: Jul 17, 2024 03:49 PM Reporting Lab: [facility] [address] [facility] [address] Performing Lab: [facility] [address] [facility] [address] VITAMIN D, 25-HYDROXY 39.3 ng/mL 30-96 2024 06:35 AM [facility] CBC BLOOD Specimen Type: BLOOD No comment entered. Ordering Provider: MICHAEL FELIZ Report Released Date/Time: Jul 17, 2024 03:01 PM Reporting Lab: [address] [address] Performing Lab: [address] [address] WBC 5.6 10*3/uL 3.6-11.2 RBC 4.41 10*6/uL 3.60-5.00 HGB 12.9 g/dL 11.0-14.9 HCT 40.5 32.6-43.4 MCV 91.8 fL 80.0-100.0 MCH 29.3 pg 27.0-34.0 MCHC 31.9 g/dL L 33.0-36.0 PLT 213 10*3/uL 150-400 MPV 11.6 fL H 7.5-11.2 RDW 13.2 11.8-15.1 LYMPHOCYTES, AUTO % 50 MONOCYTES, AUTO % 8 NEUTROPHILS, AUTO % 38 EOSINOPHILS, AUTO % 3 BASOPHILS, AUTO % 1 LYMPHOCYTES, ABSOLUTE 2.79 10*3/uL 0.77- 4.50 MONOCYTES, ABSOLUTE 0.45 10*3/uL 0.19-0. 80 NEUTROPHILS, ABSOLUTE 2.15 10*3/uL 2.10- 8.00 EOSINOPHILS, ABSOLUTE 0.19 10*3/uL 0.00- 0.60 BASOPHILS, ABSOLUTE 0.05 10*3/uL 0.00-0. 20 2024 06:35 AM [facility] RENAL PANEL PLASMA Specimen Type: PLASM A Comment: No hemolysis noted. Ordering Provider: MICHAEL FELIZ Report Released Date/Time: Jul 17, 2024 03:01 PM Reporting Lab: [address] [address] Performing Lab: [address] [address] CREATININE 0.85 mg/dL 0.6-1.1 UREA NITROGEN 20.0 mg/dL 9.0-25.0 GLUCOSE 91 mg/dL 72-99 SODIUM 142 meq/L 136-145 POTASSIUM 4.2 meq/L 3.5-5 CHLORIDE 108 meq/L H 98-107 CARBON DIOXIDE 26 meq/L 22-31 CALCIUM 9.6 mg/dL 8.4-10.4 PHOSPHOROUS 4.9 mg/dL H 2.3-4.7 ALBUMIN 3.9 g/dL 3.4-5 EGFR (CKD-EPI 2020) 84.5 >60 Jul 17, 2024 08:37 PM [facility] VITAMIN B1 PLASMA Specimen Type: PLASM A Comment: Vitamin supplementation within 24 hours prior to blood draw may affect the accuracy of the results. This test was developed and its analytical performance characteristics have been determined by [employer] [place], [place]. It has not been cleared or approved by the U.S. Food and Drug Administration. This assay has been validated pursuant to the CLIA regulations and is used for clinical purposes. Test Performed by [facility], [facility], [address] [place] [address] Remi Dos Santos M.D., Ph.D., Director of Laboratories , CLIA [id number] Ordering Provider: MICHAEL FELIZ Report Released Date/Time: Jul 17, 2024 04:40 PM Reporting Lab: [address] [address] Performing Lab: [facility] [address] [facility] VITAMIN B1 13 nmol/L 8-30 Jul 17, 2024 06:48 AM [facility] TSH (MA-PB) SERUM Specimen Type: SERUM No comment entered. Ordering Provider: REMINGTON COTA Report Released Date/Time: Jul 17, 2024 03:52 AM Reporting Lab: [facility] [address] [facility] [address] Performing Lab: [facility] [address] [place] [address] TSH 3.837 u[IU]/mL 0.47-5 Jul 17, 2024 06:48 AM [facility] BASIC METABOLIC PANEL PLASMA Specimen Type: PL ASMA Comment: No hemolysis noted. Ordering Provider: REMINGTON COTA Report Released Date/Time: Jul 16, 2024 11:36 PM Reporting Lab: [address] [address] Performing Lab: [address] [address] CREATININE 0.89 mg/dL 0.6-1.1 UREA NITROGEN 14.1 mg/dL 9.0-25.0 GLUCOSE 86 mg/dL 72-99 SODIUM 144 meq/L 136-145 POTASSIUM 3.5 meq/L 3.5-5 CHLORIDE 109 meq/L H 98-107 CARBON DIOXIDE 24 meq/L 22-31 CALCIUM 9.7 mg/dL 8.4-10.4 EGFR (CKD-EPI 2020) 80.4 >60 Jul 17, 2024 06:48 AM [facility] CBC BLOOD Specimen Type: BLOOD No comment entered. Ordering Provider: REMINGTON COTA Report Released Date/Time: Jul 16, 2024 11:36 PM Reporting Lab: [address] [address] Performing Lab: [address] [address] WBC 6.0 10*3/uL 3.6-11.2 RBC 4.55 10*6/uL 3.60-5.00 HGB 13.1 g/dL 11.0-14.9 HCT 41.6 32.6-43.4 MCV 91.4 fL 80.0-100.0 MCH 28.8 pg 27.0-34.0 MCHC 31.5 g/dL L 33.0-36.0 PLT 245 10*3/uL 150-400 MPV 11.7 fL H 7.5-11.2 RDW 13.2 11.8-15.1 LYMPHOCYTES, AUTO % 42 MONOCYTES, AUTO % 7 NEUTROPHILS, AUTO % 48 EOSINOPHILS, AUTO % 3 BASOPHILS, AUTO % 1 LYMPHOCYTES, ABSOLUTE 2.49 10*3/uL 0.77- 4.50 MONOCYTES, ABSOLUTE 0.40 10*3/uL 0.19-0. 80 NEUTROPHILS, ABSOLUTE 2.84 10*3/uL 2.10- 8.00 EOSINOPHILS, ABSOLUTE 0.15 10*3/uL 0.00- 0.60 BASOPHILS, ABSOLUTE 0.07 10*3/uL 0.00-0. 20 Jul 16, 2024 11:44 PM [facility] MRSA SURVL NARES [...] epidemiological information for final interpretation. Ordering Provider: REMINGTON COTA Report Released Date/Time: Jul 16, 2024 11:36 PM Reporting Lab: [place] [address] Performing Lab: [place] [address] MRSA SURVL NARES DNA Negative Negative Jul 16, 2024 04:15 PM [facility] TEST URINE (MA-STL) URINE Specimen Type: URINE No comment entered. Ordering Provider: ROBERTA RIVAS Report Released Date/Time: Jul 16, 2024 01:23 PM Reporting Lab: [address] [address] Performing Lab: [address] [address] Qualitative Test NEG NEGAT MISAEL Jul 16, 2024 04:15 PM [facility] URINALYSIS W/ CX REFLEX (STL-PB) URINE Specim en Type: URINE No comment entered. Ordering Provider: ROBERTA RIVAS Report Released Date/Time: Jul 16, 2024 01:23 PM Reporting Lab: [facility] [address] [facility] [address] Performing Lab: [address] [address] URINE COLOR Yellow Yellow U.BILIRUBIN Negative mg/dL Negative U.PH 7.0 5.0-8.0 URINE WBC/HPF 2 /[HPF] 0-5 URINE RBC/HPF 44 /[HPF] H 0-5 APPEARANCE Clear Clear U.NITRITE Negative mg/dL Negative SQUAMOUS EPITH. 1 /[HPF] 0-5 MUCUS OCC /[LPF] Negative-Rare HYALINE CASTS 1 /[LPF] 0-5 URN.GLUCOSE Normal mg/dL Negative URN.PROTEIN 30 mg/dL H Negative-20 URN.UROBILINOGEN 3 mg/dL H Normal URN.BLOOD Negative mg/dL Negative-Trace URN.KETONES Trace mg/dL Negative-Trace URN.LEUK.EST. Negative mg/dL Negative-Tr dora URN.SPECIFIC GRAVITY 1.026 1.005-1.029 Jul 16, 2024 02:30 PM [facility] CPK PLASMA Specimen Type: PLASM A Comment: No hemolysis noted. Ordering Provider: ROBERTA RIVAS Report Released Date/Time: Jul 16, 2024 01:23 PM Reporting Lab: [place] [address] [facility] [address] Performing Lab: [address] [address] CPK 92 U/L 29-168 Jul 16, 2024 02:30 PM [facility] MAGNESIUM PLASMA Specimen Type: PLASM A Comment: No hemolysis noted. Ordering Provider: ROBERTA RIVAS Report Released Date/Time: Jul 16, 2024 01:23 PM Reporting Lab: [address] [address] Performing Lab: [address] [address] MAGNESIUM 2.0 mg/dL 1.6-2.6 Jul 16, 2024 02:30 PM [facility] PHOSPHOROUS PLASMA Specimen Type: PLASM A Comment: No hemolysis noted. Ordering Provider: ROBERTA RIVAS Report Released Date/Time: Jul 16, 2024 01:23 PM Reporting Lab: [facility] [address] [place] [address] Performing Lab: [facility] [address] [place] [address] PHOSPHOROUS 3.4 mg/dL 2.3-4.7 Jul 16, 2024 02:30 PM [facility] COMPREHENSIVE METABOLIC PANEL PLASMA Specimen Type: PLASMA Comment: No hemolysis noted. Ordering Provider: ROBERTA RIVAS Report Released Date/Time: Jul 16, 2024 01:23 PM Reporting Lab: [facility] [address] [place] [address] Performing Lab: [address] [address] CREATININE 0.86 mg/dL 0.6-1.1 UREA NITROGEN 15.1 mg/dL 9.0-25.0 GLUCOSE 103 mg/dL H 72-99 SODIUM 143 meq/L 136-145 POTASSIUM 4.0 meq/L 3.5-5 CHLORIDE 108 meq/L H 98-107 CARBON DIOXIDE 22 meq/L 22-31 CALCIUM 9.9 mg/dL 8.4-10.4 PROTEIN 7.2 g/dL 6-8.6 ALBUMIN 4.2 g/dL 3.4-5 TOTAL BILIRUBIN 0.5 mg/dL 0.2-1.2 ALKALINE PHOSPHATASE 84 U/L 40-150 AST/SGOT 15 U/L 5-34 ALT/SGPT 12 U/L 8-40 EGFR (CKD-EPI 2020) 83.8 >60 Jul 16, 2024 02:30 PM [facility] CBC BLOOD Specimen Type: BLOOD No comment entered. Ordering Provider: ROBERTA RIVAS Report Released Date/Time: Jul 16, 2024 01:23 PM Reporting Lab: [facility] [address] [place] [address] Performing Lab: [address] [address] WBC 6.3 10*3/uL 3.6-11.2 RBC 4.76 10*6/uL 3.60-5.00 HGB 13.9 g/dL 11.0-14.9 HCT 41.4 32.6-43.4 MCV 87.0 fL 80.0-100.0 MCH 29.2 pg 27.0-34.0 MCHC 33.6 g/dL 33.0-36.0 PLT 298 10*3/uL 150-400 MPV 11.3 fL H 7.5-11.2 RDW 13.1 11.8-15.1 LYMPHOCYTES, AUTO % 30 MONOCYTES, AUTO % 5 NEUTROPHILS, AUTO % 63 EOSINOPHILS, AUTO % 1 BASOPHILS, AUTO % 1 LYMPHOCYTES, ABSOLUTE 1.92 10*3/uL 0.77- 4.50 MONOCYTES, ABSOLUTE 0.30 10*3/uL 0.19-0. 80 NEUTROPHILS, ABSOLUTE 3.98 10*3/uL 2.10- 8.00 EOSINOPHILS, ABSOLUTE 0.03 10*3/uL 0.00- 0.60 BASOPHILS, ABSOLUTE 0.07 10*3/uL 0.00-0. 20 Vital Signs: All taken on the encounter date This section contains inpatient and outpatient Vital Signs collected on the date of the Encounter. Date/Time Temperature Pulse Blood Pressure Respiratory Rate SP02 Pain Height Weight Body Mass Index Source Jul 19, 2024 09:37 PM 99.1 91 121/73 18 [address] [facility] Jul 19, 2024 08:13 PM [address] [facility] Jul 19, 2024 07:20 PM 99.1 62 123/80 [address] [facility] Jul 19, 2024 05:00 PM 98.5 57 108/74 20 [address] [facility] Jul 19, 2024 04:02 PM 5 [facility] Social History: Smoking Status (Most current) and Tobacco Use (All prior to encounter date) This section includes the most current, and the historical, smoking and tobacco- related health factors from the [facility] where the Encounter took place. Current Smoking Status This section includes the most current smoking, or tobacco-related health factor, from the [place] facility where the Encounter took place. Date/Time Current Smoking Status Comment Jessica sidhu Jul 17, 2024 03:18 AM [facility] ADMIT TOBACCO SCREEN NO [facility] Tobacco Use History This section includes a history of the smoking, or tobacco-related health factors, that were collected on or before the date of the Encounter. The data comes from the [place] facility where the Encounter took place. Date/Time [...] Encounter. The data comes from all [facility] facilities. Date/Time Radiology Report Provider Source Jul 16, 2024 02:59 PM TIBIA & FIBULA,LEF T, 2 VIEWS: GERDA NUNES [id number] -1975 F Exm Date: JUL 16, 2024@14:59 Req Phys: ROBERTA RIVAS Loc: [facility]GENCY DEPT 2ND SHIFT (R Img Loc: [facility]MAIN RADIOLOGY SUITE Service: Unknown Screen: Patient answered no [facility] [address] [place] [address] (Case [id number] COMPLETE) TIBIA & FIBULA,LEFT, 2 VIEWS (RAD Detailed) CPT:81146 Proc Modifiers : LEFT Reason for Study: left calf pain, rule out foregin body Clinical History: Report Status: Verified Date Reported: JUL 16, 2024 Date Verified: JUL 16, 2024 Wood Technologist E-Sig:/ES/INDIO SHARMA Report: EXAMINATION: TIBIA & FIBULA,LEFT, 2 VIEWS DATE: 07/16/2024 2:59 PM HISTORY: left calf pain, rule out foregin body. COMPARISON: None. TECHNIQUE: AP and lateral views. FINDINGS: The bony and joint space anatomy lie within normal limits. No significant arthropathy is observed. The osseous mineralization is within normal limits for the patient's age. The adjacent soft tissues are unremarkable. Specifically, no radiopaque foreign bodies are noted. Impression: Normal examination. No visible radiopaque foreign bodies. Primary Interpreting Staff: INDIO SHARMA, Diagnostic Radiologist (Wood Technologist) /INDIO [facility] Jul 16, 2024 02:47 PM US EXTREMITY VEINS UNILAT OR LTD: GERDA NUNES [facility] [id number] -1975 F Exm Date: JUL 16, 2024@14:47 Req Phys: ROBERTA RIVAS Loc: BIN-EMERGENCY DEPT 2ND SHIFT (R Img Loc: BIN-ULTRASOUND BIN Service: Unknown Screen: Patient answered no [facility] [address] [place] [address] (Case [id number] COMPLETE) US EXTREMITY VEINS UNILAT OR LTD (US Detailed) CPT:99096 Reason for Study: left leg pain Clinical History: Report Status: Verified Date Reported: JUL 16, 2024 Date Verified: JUL 16, 2024 Wood Technologist E-Sig:/TAMERA/INDIO SHARMA Report: Case [id number] US EXTREMITY VEINS UNILAT OR LTD Comparison: Left lower extremity ultrasound 11/09/2023. Findings: The left lower extremity deep veins are compressible throughout their course. No thrombi are visualized. Venous flow velocities demonstrate normal variation with respiration and augmentation. Impression: No evidence of deep venous thrombosis of the left lower extremity deep veins. Dictated by Kanika Lucero M.D. (vice president talent management). I, Indio Sharma, have reviewed the images and report and concur with these findings. Primary Interpreting Staff: INDIO SHARMA, Diagnostic Radiologist (Wood Technologist) Primary Interpreting Resident: KANIKA LUCERO, Diagnostic Webmethods Architect /INDIO ABARCA [facility] Jun 27, 2024 06:00 AM MRI SPINE THORACIC W/O CONT: GERDA NUNES [facility] [id number] -1975 F Exm Date: JUN 27, 2024@06:00 Req Phys: VERNA BARRERA Pat Loc: -[facility] PACT 6 PCP (Req'g Lo Img Loc: OUTSIDE BIN-MRI Service: Unknown Screen: Patient answered no (Case [id number] COMPLETE) MRI SPINE THORACIC W/O CONT (MRI Detailed) CPT:75113 Reason for Study: OUTSIDE STUDY Clinical History: Report Status: Electronically Filed Date Reported: JUL 08, 2024 Report: This study was performed outside the [place] in another facility and images were uploaded into [facility]. The report has been scanned into [employer]. In order to upload images a case number was needed, therefore this is an administrative report. Impression: This study was performed outside the [place] in another facility and images were uploaded into [facility]. The report has been scanned into [employer]. In order to upload images a case number was needed, therefore this is an administrative report VERIFIED BY: / *ELECTRONICALLY FILED* [facility] Encounter Notes: All associated encounter notes This section contains the clinical notes associated to the Encounter. Date/Time Encounter Note(s) Provider Source Jul 19, 2024 11:56 AM PHYSICAL THERAPY DISCHARGE NOTE: LOCAL TITLE: PT DISCHARGE STL STANDARD TITLE: PHYSICAL THERAPY DISCHARGE NOTE DATE OF NOTE: JUL 19, 2024@11:56 ENTRY DATE: JUL 19, 2024@11:57:03 AUTHOR: SY DOUGLASS EXP COSIGNER: CHAPARRITA AGUILAR URGENCY: STATUS: COMPLETED PT DISCHARGE STL Has ADDENDA PHYSICAL THERAPY TREATMENT AND DISCHARGE SUMMARY: JASMYN Horner Provisional Dx: Sciatica, left side (ICD-10-CM M54.32) Requesting Provider:Remington Cota Reason for Request: New or evolving neurological deficit such as stroke, SCI, TBI, Multiple Sclerosis, etc. Patient with worsenig left lower extremity pain and potentially would need strengthening exercises. PRECAUTIONS: As tolerated Activity order: Ad daniel -Other people involved in treatment []None [x]Included: JOSE CRUZ ChristopherT, patient's Length of Visit:[id number] (18 minutes) Evaluation: ___Low _x__Mod ___ High Treatment:PT Treatment (gait training x1) Evaluation Date: 07/17/2024 Visit #3 # of refusals:0 HISTORY OF PRESENT ILLNESS: Mrs. Nunes is a 48 year old female who presents to acute care hospital with complaints of left calf pain. Patient PMH includes: migraines, fibromyalgia, chronic pain syndrome, cervicalgia, lumbar DDD, and arthritis. Patient reports she was independent-modified independent with a cane with mobility prior to hospital admission. PMH/PSH: 1) Family history of ischemic heart disease (SNOMED CT 775292210) 2) Migraine (SNOMED CT 56889684) 3) Vitamin D deficiency 4) Hypothyroidism 5) Low back pain 6) Depression 7) Mastodynia 8) Lumbar radiculopathy 9) Irritable bowel syndrome characterized by alternating bowel habit 10) Fibromyalgia 11) Chronic pain in female pelvis 12) Kidney stone 13) Insomnia 14) Compartment syndrome 15) Obesity (SCT 787113931) 16) Arthritis 17) Intermittent palpitations 18) Chronic obstructive lung disease 19) Obstructive sleep apnea of adult 20) Poor pelvic muscle tone 21) Cervicalgia 22) Bacterial cellulitis 23) Overactive bladder SOCIAL HISTORY/PRIOR LEVEL OF FUNCTION *Information provided by: Patient Home environment: Lives in a house with 12 steps within the home and 1 step to enter. Assistance at home: Independent Home equipment: Cane ADLs: Receives help from as needed IADLs: Vocation: Information not obtained Mobility: Patient reports use of cane when experiencing an increase in left calf pain. Patient notes prior to left calf pain she was independent with moblity, will occasionally help with elevations. History of falls: none SUBJECTIVE: Pt verbally agreeable to PT session. Patient reports pain has been controlled this morning. Patient notes L calf pain is worse when descending stairs with therapy today. Pt goals: None obtained during encounter at this date. COGNITION/COMMUNICATION: alert and oriented in all spheres. Barriers to learning: None PAIN: Pain score not obtained, patient reports pain levels are improving. Location: Left calf and knee Pain intervention: See RN notes for medical management of pain. Abbreviations: WFL=Within Functional Limits; (I)=Independent; A=Assist; A/PROM=Act.Rom/Passive ROM; STR=Strength; SUP=Supervision; NT=Not Tested; VC=Verbal Cues; STATION INSTALLER=Prior To Admission; [facility]; CGA=Contact Guard Assist OBJECTIVE: Patient recieved at bed level with sitting beside. LDA: None VITALS: Not obtained during encounter at this date. Patient does not report adverse symptoms. Position BP HR O2 FUNCTIONAL MOBILITY: Rolling: Not tested Supine <-> sit: Independent Scooting: Independent Transfer bed <-> chair: Modified independent with rollator seat. Sit <-> stand: Modified independent with rollator Gait:Patient ambulated 50 ft (room <> stairwell) modified independently with rollator. Following stair training patient ambulated 200 ft modified independently with rollator. Patient demonstrates improved gait pattern with use of rollator, however patient continues to be cautious with bearing weight through left LE -gait pattern/deviations: Patient demonstrated slow gait, decreased weight bearing through the left LE, decreased stride length, and decreased heel strike on the left. W/C mobility: Not tested Stairs: Patient was agreeable to navigating stairs with therapy today, requesting her observes to know how to assist her when she returns home. gait belt donned for safety. Patient ascended/descended flight of stairs with left handrail, contact guard assist from therapist for safety. Patient demonstrated improved ability to navigate stairs with therapy today. Patient notes increase in left calf pain when descending steps. Educated patient on foot sequencing pattern, holding onto the railing with both hands and laterally navigating steps, and proper positioning for to guard pateint when navigating steps. Interventions: [x]Therapeutic Exercise Educated patient on therapeutic exercises: seated piriformis stretch, seated hamstring stretch, and ankle pumps. Patient able to demonstrate understanding of therapeutic exercises. Educated patient exercises were to assist with muscle and nerve tension. []Therapeutic Activity []Neuromuscular Re-education [x]Gait training Gait:Patient ambulated 50 ft (room <> stairwell) modified independently with rollator. Following stair training patient ambulated 200 ft modified independently with rollator. Patient demonstrates improved gait pattern with use of rollator, however patient continues to be cautious with bearing weight through left LE -gait pattern/deviations: Patient demonstrated slow gait, decreased weight bearing through the left LE, decreased stride length, and decreased heel strike on the left. Stairs: Patient was agreeable to navigating stairs with therapy today, requesting her observes to know how to assist her when she returns home. gait belt donned for safety. Patient ascended/descended flight of stairs with left handrail, contact guard assist from therapist for safety. Patient demonstrated improved ability to navigate stairs with therapy today. Patient notes increase in left calf pain when descending steps. Educated patient on foot sequencing pattern, holding onto the railing with both hands and laterally navigating steps, and proper positioning for to guard pateint when navigating steps. []Balance training [x]EDUCATION: Pt/family member demonstrated understanding of education/instructions. Pt given 1:1 instruction on: _X__Purpose of PT _X__ findings of evaluation, POC, goals, DC plan per assessment ___ cardiac condition ___body/back mechanics ___TKA/CODI _x__Gait ___Falls _x__ Equip use/care ___ Exercise program ___respiratory exercises/effective cough ___ Weightbearing status ___ w/c safety of importance of locking brakes before transfers and asking for assistance with transfers Patient was left sitting in rollator at the foot of the bed, patient's standing beside her. Patient educated to ask for help from nursing staff if she needs assistance getting back in bed. Patient receptive and states verbal understanding. Assessment: Pt is a 48 year-old female admitted to [facility] on 07/16/2024 for left calf pain. Patient's PMH includes: migraines, fibromyalgia, chronic pain syndrome, cervicalgia, lumbar DDD, and arthritis. Pt referred to PT for evaluation on 07/17/2024. Patient tolerated treatment session well. Patient tolerated ambulation with rollator well today. Educated patient's how he can assist her when navigating stairs at home. Patient's gave verbal understanding of assist technique. Patient navigated a flight of stairs with contact guard assist, noting descending steps increased left calf pain. Following stairs patient ambulated 200 ft with rollator. Educated patient on therapeutic exercises: seated piriformis stretch, seated hamstring stretch, and ankle pumps. Patient able to demonstrate understanding of therapeutic exercises. Patient demonstrates modified independent level with rollator and has been educated on appropriate elevation techniques, discharged from therapy services at this point. Therapy recommends outpatient therapy services to address left calf pain and remaining mobility deficits. DISCHARGE RECOMMENDATION: [x]Other: Anticipate safe discharge home when pain is managed. Therapy recommends following up with outpatient PT to continue to address L calf pain and mobility deficits. Equipment Issued: Rollator issued on 2024 Problems: complicating co-morbidities decreased independence with functional mobility decreased endurance compromised balance decreased tolerance to activity compromised safety with mobility Goals (short term, 5-7 visits): 1. Pt will transfer from sit <> stand modified independently with least restricitve device. Met. 2. Pt will ambulate 50 ft modified independently with least restrictive device. Met. - Patient will ambulate 150 ft modified independent with rollator. Met. 3. Pt will negotiate a flight of stairs with handrail modified independent with least restricitive device in order to safely navigate home environment. Goal not met, however patient and patient's have been properly trained on elevations. <*><*><*> GG MOBILITY ASSESSMENT ITEMS <*><*><*> --- --- --- --- --- --- --- --- --- --- --- --- --- --- --- <> SECTION A THROUGH G: ADMISSION GOAL DISCHARGE A. ROLL LEFT AND RIGHT....: [] [] [] B. SIT TO LYING...........: [4] [6] [6] C. LYING TO SITTING ON SIDE OF BED............: [4] [6] [6] D. SIT TO STAND...........: [3] [6] [6] E. CHAIR/FKQ-CP-FWYLV TRANSFER...............: [] [] [6] F. TOILET TRANSFER........: [] [] [] G. CAR TRANSFER...........: [] [] [] --- --- --- --- --- --- --- --- --- --- --- --- --- --- --- <> SECTION I THROUGH O ONLY IF THE Pt. IS WALKING: ADMISSION GOAL DISCHARGE I. WALK 10 FEET...........: [3] [6] [6] J. WALK 50 FEET W. 2 TURNS: [88] 6] [6] K. WALK 150 FEET*.........: [88] [6] [6] L. WALKING 10 FEET ON UNEVEN SURFACE.........: [] [] [] M. 1 STEP (CURB)*.........: [88] [6] [4] N. 4 STEPS*...............: [88] [6] [4] O. 12 STEPS*..............: [88] [6] [4] P. PICKING UP OBJECT*.....: [] [] [] --- --- --- --- --- --- --- --- --- --- --- --- --- --- --- <> SECTION R THROUGH S SCORE ONLY IF CLIENT USES WC: [] MANUAL; [] MOTORIZED R. WHEEL 50 FEET W. 2 TURNS: [] [] [] S. WHEEL 150 FEET..........: [] [] [] --- --- --- --- --- --- --- --- --- --- --- <> SCORING OF THE GG MOBILITY ITEMS: 6: INDEPENDENTPATIENT/RESIDENT SAFELY COMPLETES THE ACTIVITY BY THEMSELVES WITH NO ASSISTANCE FROM A HELPER. 5. SETUP OR CLEANUP ASSISTANCEHELPER SETS UP OR CLEANS UP; PATIENT/RESIDENT COMPLETES ACTIVITY. HELPER ASSISTS ONLY PRIOR TO OR FOLLOWING THE ACTIVITY. 4. SUPERVISION OR TOUCHING ASSISTANCEHELPER PROVIDES VERBAL CUES AND/OR TOUCHING/STEADYING AND/OR CONTACT GUARD ASSISTANCE PATIENT/RESIDENT COMPLETES ACTIVITY. ASSISTANCE MAY BE PROVIDED THROUGHOUT THE ACTIVITY OR INTERMITTENTLY. 3. PARTIAL/MODERATE ASSISTANCEHELPER DOES LESS THAN HALF THE EFFORT. HELPER LIFTS, HOLDS, OR SUPPORTS TRUNK OR LIMBS, BUT PROVIDES LESS THAN HALF THE EFFORT. 2. SUBSTANTIAL/MAXIMAL ASSISTANCEHELPER DOES MORE THAN HALF THE EFFORT. HELPER LIFTS OR HOLDS TRUNK OR LIMBS AND PROVIDES MORE THAN HALF THE EFFORT 1. DEPENDENTHELPER DOES ALL THE EFFORT. PATIENT/RESIDENT DOES NONE OF THE EFFORT TO COMPLETE THE ACTIVITY. OR, THE ASSISTANCE OF 2 OR MORE HELPERS IS REQUIRED FOR THE PATIENT/RESIDENT TO COMPLETE THE ACTIVITY. <> 07: RESIDENT REFUSED <> 09: NOT APPLICABLERESIDENT DID NOT PERFORM THIS ACTIVITY PRIOR TO CURRENT INJURY, EXACERBATION, OR INJURY. <> 10: NOT ATTEMPTEDDUE TO ENVIRONMENTAL LIMITATIONS. <> 88: NOT ATTEMPTEDDUE TO MEDICAL CONDITION AND SAFETY CONCERNS. --- --- --- --- --- --- --- --- --- --- --- --- --- --- --- P.T. Prognosis: __POOR- Limited potential for improvement.* __GUARDED- There exists a question of the potential for improvement secondary to any of the above questions.* __FAIR- Presents with the potential to improve in some areas while other deficits may remain unchanged.* _x_GOOD- Presents with the potential to improve to a level of functional independence, though may continue to demonstrate certain minimal limitations. __EXCELLENT- Presents with the potential to fully recover with no residual deficits. Pt presented with the following number of personal factors/co-morbidities influencing the PT plan of care: -> 48 years-old -> Home environment -> medical co-morbidities -> Pain Total number of elements examined: 4 including -> Strength -> Neurological Influence -> Balance -> Functional Mobility Pts CLINICAL PRESENTATION was: [] Stable and/or Uncomplicated: [x] Evolving Clinical Presentation with Changing Clinical Characteristics: [] Unstable and Unpredictable Characteristics: Therefore the level of complexity for this patient was: [] Low, [x] Moderate, [] High Patient discharged from acute care PT services. /tamera/ SY DOUGLASS PHYSICAL THERAPY STUDENT Signed: 07/19/2024 13:20 /tamera/ CHAPARRITA AGUILAR PHYSICAL THERAPIST Cosigned: 07/19/2024 13:21 07/19/2024 ADDENDUM STATUS: COMPLETED The patient was seen for the diagnosis of sciatica, left side. The patient was assessed, and the treatment was provided under the appropriate level of supervision from the primary Physical Therapist (PT) for the following activities this session: gait training, elevation training, and ther ex. The clinical decision-making process for the treatment provided; patient response to treatment; therapist assessment of the response to treatment; and plan of care documented in this note have been formulated and approved by the primary PT. Encounter database design analyst was approved by the primary PT and is accurate for the services provided. /tamera/ CHAPARRITA AGUILAR PHYSICAL THERAPIST Signed: 07/19/2024 13:22 SY DOUGLASS [facility]
--- OUTSIDE RECORDS SUMMARY | 2025-03-22 21:57 | XMS_ITS | Encounter Summary ---
Author Organization [facility] Address [address] [place] [address] Phone Care Team Providers Care Movable Bulkhead Installer Name Role Phone Rajesh Remy NP Primary Care Provider [phone] Rajesh Remy NP Primary Care Provider [phone] Luzmaria Ba MD Primary Care Provider [phone] [facility] Primary Care Provide r Unavailable Luzmaria Ba MD Unavailable [phone] Rajesh Remy NP Primary Care Provider [phone] Uche Williamson MD Unavailable [phone] Mere Granados MD Unavailable [phone] Asuncion Lyle MD Primary Care Provid er Asuncion Lyle MD Primary Care Provid er No, Physician Primary Care Provider [phone] Asuncion Lyle MD Primary Care Provid er Bert Calderon PT Unavailable [phone] Encounter Details Date Type Department Care Team (Latest Contact Info) Description 02/13/2018 Orders Only [facility] CONVERSION Scanning, Provider Social History Tobacco Use Types Packs/Day Years Used Date Smoking Tobacco: Never Comments Unknown Sex and Gender Information Value Date Recorded Sex Assigned at Not on file Legal Sex Female 5:21 AM CHARTER REPRESENTATIVE Gender Identity Not on file Sexual Orientation [...] COVID: Suspected 09/08/2022 09/08/2022 09/08/2022 5:59 PM CHARTER REPRESENTATIVE documented as of this encounter Care Teams Movable Bulkhead Installer Relationship Specialty Start Date End Date Rajesh Remy NP PCP - General 02/13/18 03/07/18 Rajesh Remy NP PCP - General 03/08/18 03/22/18 Luzmaria Ba MD PCP - General 03/23/18 02/27/19 Sahra Amos MD PCP - General [employer] 02/28/19 05/29/19 Rajesh Remy NP PCP - General Nurse Practitioner 05/30/19 05/10/20 Mere Granados MD [address] [place] [id number] [place] [address] PCP - Gastroenterology Gastroenterology 06/07/1908/09 Asuncion Lyle MD [address] [place] [phone] [place] [address] PCP - General 06/12/20 06/17/21 Asuncion Lyle MD [address] [place] [id number] [place] [address] PCP - General 05/11/20 06/11/20 Lovely Physician PCP - General 07/31/21 06/28/22 Asuncion Lyle MD [address] [place] [address] PCP - General Family Practice 06/29/22 Luzmaria Ba MD Referring Physician Obstetrics and Gynecology 03/13/19 Uche Williamson MD [address] [place] [id number] [place] [address] Referring Physician Gynecologic Oncology 06/07/19 [place] [address] [place] [address] Physical Therapist Physical Therapy 12/02/22 12/02/22 RAJESH REMY NP [facility] [address] [facility] [id number] Referring Physician Internal Medicine 05/30/19 documented as of this encounter
--- OUTSIDE RECORDS SUMMARY | 2025-03-22 21:57 | XMS_ITS | Encounter Summary ---
Author Name [facility] [place] [facility] [place] [facility] [place] [facility] [place] Address [address] [place] [address] Care Team Providers Care Cigarette Tester Name Role Phone VERNA BARRERA Primary Care [...] AID (WNR) Oct 23, 2016 MEDICAI D [id number] GERDA NUNES PATIENT Selected Encounter This section includes the information on record at [place] for the Encounter. Date/Time Encounter Type Encounter Description Reason Provider Source Jul 16, 2024 11:43 AM EMERGENCY DEPT VISIT MOD [facility] EMERGENCY DEPT ICD-10-CM G89.29 Other chronic pain ALICIA MENDOZA Encounter Template Text not used by [place] Assessments - Encounter Diagnoses This section includes the primary and secondary diagnoses documented for the Encounter. Date/Time Primary/Secondary Diagnosis Diagnosis Name Provider Source Jul 17, 2024 02:09 AM PRIMARY Other chronic pain KAYA RIVAS [facility] Plan of Treatment: Future Appointments (+ 6 months) and Future Tests (+/- 45 days) The Plan of Treatment section includes future care activities for the patient from [facility] [place] [facility] This section includes future appointments and future orders which are active, pending or scheduled. Future Appointments This section includes appointments that were scheduled to occur 6 months from the date of the Encounter, up to a maximum of 20 appointments. The data comes from all [facility]. Appointment Date/Time Appointment Type Appointme nt Facility Name Jul 22, 2024 10:00 AM AMBULATORY - MEDICINE [facility] Oct 22, 2024 11:30 AM AMBULATORY - MEDICINE [facility] Nov 07, 2024 08:41 AM AMBULATORY - MEDICINE [facility] Nov 12, 2024 10:30 AM AMBULATORY - MEDICINE [facility] Nov 14, 2024 09:30 AM AMBULATORY MEDICINE [facility] Nov 26, 2024 12:30 PM AMBULATORY - SURGERY [facility] Dec 17, 2024 06:28 PM AMBULATORY - MEDICINE [facility] Jan 02, 2025 01:00 PM AMBULATORY - PSYCHIATRY [facility] Jan 07, 2025 11:30 AM AMBULATORY - MEDICINE [facility] Active, Pending, and Scheduled Orders This section includes a listing of several types of active, pending, and scheduled orders, including clinic medications orders, diagnostic test orders, procedure orders and consult orders; where the start date of the order is 45 days before the date of the Encounter or 45 days after the date of theEncounter. The data comes from all [facility]. Test Date/Time Test Type Test Details Facility Name Jul 11, 2024 04:51 PM Laboratory - Chemi stry Order TSH W/ REFLEX FT4 (STL) GREEN LI-HEP PLASMA WC [facility] Jul 12, 2024 12:00 AM Laboratory - Chemi stry Order HAPTOGLOBIN (STL) GOLD/RED SST SERUM SP [facility] Jul 12, 2024 12:00 AM Laboratory - Chemi stry Order LDH GREEN LI/HEP BLD/PLAS PLASMA SP [facility] Jul 12, 2024 12:00 AM Laboratory - Chemi stry Order FERRITIN GOLD/RED SST SERUM SP . [facility] Jul 12, 2024 12:00 AM Laboratory - Chemi stry Order IRON/TIBC PROFILE GOLD/RED SST SERUM SP . [facility] Jul 12, 2024 12:00 AM Laboratory - Chemi stry Order B12 GOLD/RED SST SERUM SP . [facility] Jul 12, 2024 12:00 AM Laboratory - Chemi stry Order RETIC RATIO BLOOD SP ONCE [facility] Jul 12, 2024 12:00 AM Laboratory - Chemi stry Order FOLATE (STL-MA) GOLD/RED SST SERUM SP . [facility] Jul 16, 2024 11:36 PM Laboratory - Chemi stry Order MRSA SURVL NARES DNA NARES WC [facility] Lab Results: +/- 30 days of [...] Type Comment Jul 20, 2024 11:28 AM [facility] GLUCOSE,BLOOD-poct (STL) BLOOD Specimen Type: BLOOD Comment: Test Performed by: [id number] Meter #: [id number] Ordering Provider: KRYSTIAN KUMARI Report Released Date/Time: Jul 20, 2024 11:50 AM Reporting Lab: [facility] [address] [facility] [address] Performing Lab: [facility] [address] [facility] [address] GLUCOSE,BLOOD-poct (L) 78 mg/dL 72-99 Jul 20, 2024 08:02 AM [facility] MAGNESIUM PLASMA Specimen Type: PLASM A Comment: No hemolysis noted. Ordering Provider: MICHAEL FELIZ Report Released Date/Time: Jul 17, 2024 03:01 PM Reporting Lab: [address] [address] Performing Lab: [address] [place] [address] MAGNESIUM 2.1 mg/dL 1.6-2.6 Jul 20, 2024 08:02 AM [facility] RENAL PANEL PLASMA Specimen Type: PLASM A Comment: No hemolysis noted. Ordering Provider: MICHAEL FELIZ Report Released Date/Time: Jul 17, 2024 03:01 PM Reporting Lab: [address] [address] Performing Lab: [address] [address] CREATININE 0.81 mg/dL 0.6-1.1 UREA NITROGEN 16.7 mg/dL 9.0-25.0 GLUCOSE 99 mg/dL 72-99 SODIUM 142 meq/L 136-145 POTASSIUM 4.2 meq/L 3.5-5 CHLORIDE 108 meq/L H 98-107 CARBON DIOXIDE 25 meq/L 22-31 CALCIUM 9.6 mg/dL 8.4-10.4 PHOSPHOROUS 3.9 mg/dL 2.3-4.7 ALBUMIN 3.7 g/dL 3.4-5 EGFR (CKD-EPI 2020) 89.5 >60 Jul 19, 2024 04:23 PM [facility] GLUCOSE,BLOOD-poct (STL) BLOOD Specimen Type: BLOOD Comment: Test Performed by: [id number] Meter #: [id number] Ordering Provider: KRYSTIAN KUMARI Report Released Date/Time: Jul 19, 2024 04:54 PM Reporting Lab: [address] [address] Performing Lab: [address] [address] GLUCOSE,BLOOD-poct (STL) 74 mg/dL 72-99 Jul 19, 2024 11:32 AM [facility] GLUCOSE,BLOOD-poct (STL) BLOOD Specimen Type: BLOOD Comment: Test Performed by: [id number] Meter #: [id number] Ordering Provider: QUOCMED Report Released Date/Time: Jul 19, 2024 11:55 AM Reporting Lab: [address] [place] [address] Performing Lab: [facility] [address] [place] [phone] GLUCOSE,BLOOD-poct (STL) 78 mg/dL 72-99 Jul 19, 2024 06:59 AM [facility] MAGNESIUM PLASMA Specimen Type: PLASM A Comment: No hemolysis noted. Ordering Provider: MICHAEL FELIZ Report Released Date/Time: Jul 17, 2024 03:01 PM Reporting Lab: [facility] [address] [place] [address] Performing Lab: [address] [address] MAGNESIUM 2.1 mg/dL 1.6-2.6 Jul 19, 2024 06:59 AM [facility] RENAL PANEL PLASMA Specimen Type: PLASM A Comment: No hemolysis noted. Ordering Provider: MICHAEL FELIZ Report Released Date/Time: Jul 17, 2024 03:01 PM Reporting Lab: [address] [address] Performing Lab: [address] [address] CREATININE 0.88 mg/dL 0.6-1.1 UREA NITROGEN 19.2 mg/dL 9.0-25.0 GLUCOSE 52 mg/dL L 72-99 SODIUM 143 meq/L 136-145 POTASSIUM 3.5 meq/L 3.5-5 CHLORIDE 108 meq/L H 98-107 CARBON DIOXIDE 26 meq/L 22-31 CALCIUM 10.0 mg/dL 8.4-10.4 PHOSPHOROUS 3.8 mg/dL 2.3-4.7 ALBUMIN 4.1 g/dL 3.4-5 EGFR (CKD-EPI 2020) 81.0 >60 Jul 19, 2024 06:59 AM [facility] CBC BLOOD Specimen Type: BLOOD No comment entered. Ordering Provider: MICHAEL FELIZ Report Released Date/Time: Jul 17, 2024 03:01 PM Reporting Lab: [address] [address] Performing Lab: [facility] [address] [facility] [address] WBC 4.6 10*3/uL 3.6-11.2 RBC 4.82 10*6/uL [...] 0.05 10*3/uL 0.00-0. 20 2024 06:35 AM [facility] MAGNESIUM PLASMA Specimen Type: PLASM A Comment: No hemolysis noted. Ordering Provider: MICHAEL FELIZ Report Released Date/Time: Jul 17, 2024 03:01 PM Reporting Lab: [address] [address] Performing Lab: [address] [address] MAGNESIUM 2.2 mg/dL 1.6-2.6 2024 06:35 AM [facility] FERRITIN SERUM Specimen Type: SERUM No comment entered. Ordering Provider: MICHAEL FELIZ Report Released Date/Time: Jul 17, 2024 03:01 PM Reporting Lab: [address] [address] Performing Lab: [address] [address] FERRITIN 11.54 ng/mL 10-204 2024 06:35 AM [facility] B12 SERUM Specimen Type: SERUM No comment entered. Ordering Provider: MICHAEL FELIZ Report Released Date/Time: Jul 17, 2024 03:01 PM Reporting Lab: [facility] [address] [facility] [address] Performing Lab: [facility] [address] [facility] [address] B12 194 pg/mL L 213-816 2024 06:35 AM [facility] IRON/TIBC PROFILE SERUM Specimen Type: SERUM No comment entered. Ordering Provider: MICHAEL FELIZ Report Released Date/Time: Jul 17, 2024 03:01 PM Reporting Lab: [address] [address] Performing Lab: [facility] [address] [facility] [address] TIBC 420 ug/dL 250-450 TRANSFERRIN 336 mg/dL 173-360 IRON SATURATION 11 L 20-50 IRON 45 ug/dL L 50-170 2024 06:35 AM [facility] FOLATE (L-MA) SERUM Specimen Type: SERUM No comment entered. Ordering Provider: MICHAEL FELIZ Report Released Date/Time: Jul 17, 2024 03:01 PM Reporting Lab: [facility] [address] [facility] [address] Performing Lab: [facility] [address] [facility] [address] FOLATE (L-MA) 8.8 ng/mL 7-20 2024 06:35 AM [facility] VITAMIN D, 25-HYDROXY SERUM Specimen Type: SE RUM No comment entered. Ordering Provider: MICHAEL FELIZ Report Released Date/Time: Jul 17, 2024 03:49 PM Reporting Lab: [facility] [address] [place] [address] Performing Lab: [facility] [address] [facility] [address] VITAMIN D, 25-HYDROXY 39.3 ng/mL 30-96 2024 06:35 AM [facility] CBC BLOOD Specimen Type: BLOOD No comment entered. Ordering Provider: MICHAEL FELIZ Report Released Date/Time: Jul 17, 2024 03:01 PM Reporting Lab: [facility] [address] [place] [phone] Performing Lab: [address] [address] WBC 5.6 10*3/uL 3.6-11.2 RBC 4.41 10*6/uL [...] 0.05 10*3/uL 0.00-0. 20 2024 06:35 AM [facility] RENAL PANEL PLASMA Specimen Type: PLASM A Comment: No hemolysis noted. Ordering Provider: MICHAEL FELIZ Report Released Date/Time: Jul 17, 2024 03:01 PM Reporting Lab: [address] [address] Performing Lab: [address] [address] CREATININE 0.85 mg/dL 0.6-1.1 UREA NITROGEN 20.0 mg/dL 9.0-25.0 GLUCOSE 91 mg/dL 72-99 SODIUM 142 meq/L 136-145 POTASSIUM 4.2 meq/L 3.5-5 CHLORIDE 108 meq/L H 98-107 CARBON DIOXIDE 26 meq/L 22-31 CALCIUM 9.6 mg/dL 8.4-10.4 PHOSPHOROUS 4.9 mg/dL H 2.3-4.7 ALBUMIN 3.9 g/dL 3.4-5 EGFR (CKD-EPI 2020) 84.5 >60 Jul 17, 2024 08:37 PM [facility] VITAMIN B1 PLASMA Specimen Type: PLASM A Comment: Vitamin supplementation within 24 hours prior to blood draw may affect the accuracy of the results. This test was developed and its analytical performance characteristics have been determined by [employer] [place], [place]. It has not been cleared or approved by the U.S. Food and Drug Administration. This assay has been validated pursuant to the CLIA regulations and is used for clinical purposes. Test Performed by [facility], [employer] [facility], [address] [place] [address] Remi Dos Santos M.D., Ph.D., Director of Laboratories , CLIA [id number] Ordering Provider: MICHAEL FELIZ Report Released Date/Time: Jul 17, 2024 04:40 PM Reporting Lab: [address] [address] Performing Lab: [facility] [address] [facility] VITAMIN B1 13 nmol/L 8-30 Jul 17, 2024 06:48 AM [facility] TSH (MA-PB) SERUM Specimen Type: SERUM No comment entered. Ordering Provider: REMINGTON COTA Report Released Date/Time: Jul 17, 2024 03:52 AM Reporting Lab: [facility] [address] [place] [phone] Performing Lab: [address] [address] TSH 3.837 u[IU]/mL 0.47-5 Jul 17, 2024 06:48 AM [facility] BASIC METABOLIC PANEL PLASMA Specimen Type: PL ASMA Comment: No hemolysis noted. Ordering Provider: REMINGTON COTA Report Released Date/Time: Jul 16, 2024 11:36 PM Reporting Lab: [place] [address] Performing Lab: [place] [address] CREATININE 0.89 mg/dL 0.6-1.1 UREA NITROGEN 14.1 mg/dL 9.0-25.0 GLUCOSE 86 mg/dL 72-99 SODIUM 144 meq/L 136-145 POTASSIUM 3.5 meq/L 3.5-5 CHLORIDE 109 meq/L H 98-107 CARBON DIOXIDE 24 meq/L 22-31 CALCIUM 9.7 mg/dL 8.4-10.4 EGFR (CKD-EPI 2020) 80.4 >60 Jul 17, 2024 06:48 AM [facility] CBC BLOOD Specimen Type: BLOOD No comment entered. Ordering Provider: REMINGTON COTA Report Released Date/Time: Jul 16, 2024 11:36 PM Reporting Lab: [place] [phone] Performing Lab: [address] [address] WBC 6.0 10*3/uL 3.6-11.2 RBC 4.55 10*6/uL [...] 0.00-0. 20 Jul 16, 2024 11:44 PM [facility] MRSA SURVL NARES DNA NARES Specimen Type: [...] Jul 16, 2024 11:36 PM Reporting Lab: [address] [address] Performing Lab: [address] [address] MRSA SURVL NARES DNA Negative Negative Jul 16, 2024 04:15 PM [facility] TEST URINE (MA-STL) URINE Specimen Type: URINE No comment entered. Ordering Provider: ROBERTA RIVAS Report Released Date/Time: Jul 16, 2024 01:23 PM Reporting Lab: [address] [address] Performing Lab: [address] [address] Qualitative Test NEG NEGAT MISAEL Jul 16, 2024 04:15 PM [facility] URINALYSIS W/ CX REFLEX (STL-PB) URINE Specim en Type: URINE No comment entered. Ordering Provider: ROBERTA RIVAS Report Released Date/Time: Jul 16, 2024 01:23 PM Reporting Lab: [facility] [address] [facility] [address] Performing Lab: [facility] [address] [place] [phone] URINE COLOR Yellow Yellow U.BILIRUBIN Negative mg/dL [...] 1.026 1.005-1.029 Jul 16, 2024 02:30 PM [facility] CPK PLASMA Specimen Type: PLASM A Comment: No hemolysis noted. Ordering Provider: ROBERTA RIVAS Report Released Date/Time: Jul 16, 2024 01:23 PM Reporting Lab: [address] [address] Performing Lab: [address] [address] CPK 92 U/L 29-168 Jul 16, 2024 02:30 PM [facility] MAGNESIUM PLASMA Specimen Type: PLASM A Comment: No hemolysis noted. Ordering Provider: ROBERTA RIVAS Report Released Date/Time: Jul 16, 2024 01:23 PM Reporting Lab: [address] [address] Performing Lab: [address] [address] MAGNESIUM 2.0 mg/dL 1.6-2.6 Jul 16, 2024 02:30 PM [facility] PHOSPHOROUS PLASMA Specimen Type: PLASM A Comment: No hemolysis noted. Ordering Provider: ROBERTA RIVAS Report Released Date/Time: Jul 16, 2024 01:23 PM Reporting Lab: [facility] [address] [facility] [address] Performing Lab: [facility] [address] [place] [address] PHOSPHOROUS 3.4 mg/dL 2.3-4.7 Jul 16, 2024 02:30 PM [facility] COMPREHENSIVE METABOLIC PANEL PLASMA Specimen Type: PLASMA Comment: No hemolysis noted. Ordering Provider: ROBERTA RIVAS Report Released Date/Time: Jul 16, 2024 01:23 PM Reporting Lab: [address] [address] Performing Lab: [address] [address] CREATININE 0.86 mg/dL 0.6-1.1 UREA NITROGEN 15.1 [...] 83.8 >60 Jul 16, 2024 02:30 PM [facility] CBC BLOOD Specimen Type: BLOOD No comment entered. Ordering Provider: ROBERTA RIVAS Report Released Date/Time: Jul 16, 2024 01:23 PM Reporting Lab: [facility] [address] [place] [phone] Performing Lab: [address] [address] WBC 6.3 10*3/uL 3.6-11.2 RBC 4.76 10*6/uL [...] Height Weight Body Mass Index Source Jul 16, 2024 11:[address] [facility] Jul 16, 2024 11:42 PM 98.1 94 131/[address] [facility] Jul 16, 2024 10:15 PM 84 117/91 [facility] Jul 16, 2024 07:30 PM 74 115/95 [facility] Jul 16, 2024 05:00 PM 87 139/91 [facility] Social History: Smoking Status (Most current) and Tobacco Use (All prior to encounter date) This section includes the most current, and the historical, smoking and tobacco- related health factors from the [place] facility where the Encounter took place. Current Smoking Status This section includes the most current smoking, or tobacco-related health factor, from the [place] facility where the Encounter took place. Date/Time Current Smoking Status Comment Facil ity Nov 09, 2023 06:45 AM ORYX ADMIT TOBACCO SCREEN NO [facility] Tobacco Use History This section includes a history of the smoking, or tobacco-related health factors, that were collected on or before the date of the Encounter. The data comes from the [place] facility where the Encounter took place. Date/Time Smoking Status/Tobacco Use Comment F acility May 25, 2022 11:42 AM ORYX ADMIT TOBACCO SCREEN NO [facility] May 13, 2022 08:14 PM ORYX ADMIT TOBACCO SCREEN NO [facility] Apr 07, 2022 03:34 AM ORYX ADMIT TOBACCO SCREEN REFUSED [facility] Dec 20, 2021 12:44 PM ORYX ADMIT TOBACCO SCREEN NO [facility] Aug 23, 2021 08:22 PM ORYX ADMIT TOBACCO SCREEN NO [facility] Aug 12, 2021 06:24 PM ORYX ADMIT TOBACCO SCREEN NO [facility] May 12, 2008 06:16 PM LIFETIME NON-USER OF TOBACCO [facility] Jun 28, 2007 01:18 PM LIFETIME NON-USER OF TOBACCO [facility] May 03, 2006 10:56 AM LIFETIME NON-TOBACCO USER [facility] Dec 03, 2003 08:16 AM LIFETIME NON-TOBACCO USER [facility] Radiology Reports: +/- 30 days of the [...] the Encounter. The data comes from all [facility] facilities. Date/Time Radiology Report Provider Source Jul 16, 2024 02:59 PM TIBIA & FIBULATAD, 2 VIEWS: GERDA NUNES JESSICA [id number] -1975 F Exm Date: JUL 16, 2024@14:59 Req Phys: ROBERTA RIVAS Loc: BIN-EMERGENCY DEPT 2ND SHIFT (R Img Loc: BIN-MAIN RADIOLOGY SUITE Service: Unknown Screen: Patient answered no [facility] [address] [place] [address] (Case [id number] COMPLETE) TIBIA & FIBULA,LEFT, 2 VIEWS (RAD Detailed) CPT:31493 Proc Modifiers : LEFT Reason for Study: left calf pain, rule out foregin body Clinical History: Report Status: Verified Date Reported: JUL 16, 2024 Date Verified: JUL 16, 2024 Silver Spray Worker E-Sig:/ES/INDIO SHARMA Report: EXAMINATION: TIBIA & FIBULA,LEFT, [...] Primary Interpreting Staff: INDIO SHARMA, Diagnostic Radiologist (Silver Spray Worker) /[facility] Jul 16, 2024 02:47 PM US EXTREMITY VEINS UNILAT OR LTD: GERDA NUNES [facility] [id number] -1975 F Exm Date: JUL 16, 2024@14:47 Req Phys: ROBERTA RIVAS Loc: -EMERGENCY DEPT 2ND SHIFT (R Img Loc: -ULTRASOUND Service: Unknown Screen: Patient answered no [facility], [facility] [address] [place] [address] (Case [id number] COMPLETE) US EXTREMITY VEINS UNILAT OR LTD (US Detailed) CPT:70950 Reason for Study: left leg pain Clinical History: Report Status: Verified Date Reported: JUL 16, 2024 Date Verified: JUL 16, 2024 Silver Spray Worker E-Sig:/ES/INDIO SHARMA Report: Case [id number] US EXTREMITY VEINS UNILAT OR LTD Comparison: Left lower extremity ultrasound 11/09/2023. Findings: The left lower extremity deep veins are compressible throughout their course. No thrombi are visualized. Venous flow velocities demonstrate normal variation with respiration and augmentation. Impression: No evidence of deep venous thrombosis of the left lower extremity deep veins. Dictated by Kanika Lucero M.D. (vice president education). I, Indio Sharma, have reviewed the images and report and concur with these findings. Primary Interpreting Staff: INDIO SHARMA, Diagnostic Radiologist (Silver Spray Worker) Primary Interpreting Resident: KANIKA LUCERO, Diagnostic Contact Center Specialist /INDIO ABARCA [facility] Jun 27, 2024 06:00 AM MRI SPINE THORACIC W/O CONT: GERDA NUNES [facility] [id number] -1975 F Exm Date: JUN 27, 2024@06:00 Req Phys: VERNA BARRERA Pat Loc: [facility] PACT 6 PCP (Marcia'g Lo Img Loc: OUTSIDE BIN-MRI Service: Unknown Screen: Patient answered no (Case [id number] COMPLETE) MRI SPINE THORACIC W/O CONT (MRI Detailed) CPT:52226 Reason for Study: OUTSIDE STUDY Clinical History: Report Status: Electronically Filed Date Reported: JUL 08, 2024 Report: This study was performed outside the [place] in another facility and images were uploaded into [employer]. The report has been scanned into [employer]. In order to upload images a case number was needed, therefore this is an administrative report. Impression: This study was performed outside the [place] in another facility and images were uploaded into [employer]. The report has been scanned into [employer]. In order to upload images a case number was needed, therefore this is an administrative report VERIFIED BY: / *ELECTRONICALLY FILED* [facility] Encounter Notes: All associated encounter notes This section contains the clinical notes associated to the Encounter. Date/Time Encounter Note(s) Provider Source Jul 16, 2024 05:05 PM [facility]: LOCAL TITLE: STATUS UPDATE REVIEW STANDARD TITLE: [facility] DATE OF NOTE: JUL 16, 2024@17:05:06 ENTRY DATE: JUL 16, 2024@17:05:07 AUTHOR: ROBERTA RIVAS EXP COSIGNER: URGENCY: STATUS: COMPLETED The following data was entered: Laboratory Test: Qualitative Test Collected On: Jul 16, 2024@16:15:01 Result: NEG QUAL. Reference Range: Ref: NEGATIVE Current status: No data available A review of the patient's chart indicates that a /intentions/contrace ption status update is not needed at this time. /tamera/ ROBERTA RIVAS MD STAFF PHYSICIAN Signed: 07/16/2024 17:08 ROBERTA RIVAS [facility] Jul 16, 2024 01:30 PM PHYSICIAN EMERGENCY DEPT NOTE: LOCAL TITLE: EMERGENCY DEPARTMENT ST STANDARD TITLE: PHYSICIAN EMERGENCY DEPT NOTE DATE OF NOTE: JUL 16, 2024@13:30 ENTRY DATE: JUL 16, 2024@13:30:38 AUTHOR: ROBERTA RIVAS EXP COSIGNER: URGENCY: STATUS: COMPLETED TRIAGE CHIEF COMPLAINT As Written By Triage Nurse and Copied From Triage Nurse Note: HPI: is a 48-year-old female with past medical history of migraines, fibromyalgia, chronic pain syndrome, cervicalgia, lumbar DDD, arthritis presenting with left calf tenderness. States the tenderness has been going on for about a month. Of note she has been messaging her primary care doctor about it since July 01. Describes the pain as sharp and achy and rates as severe. She denies pain in the upper part of her leg. States pain medicines not working at home. She is requesting IV pain medications and IV fluids. REVIEW OF SYSTEMS: See HPI for further details. All 10 systems reviewed and otherwise negative unless otherwise detailed herein. PAST MEDICAL HISTORY: 1) Family history of ischemic heart disease (SNOMED CT 002534133) 2) Migraine (SNOMED CT 40920355) 3) Vitamin D deficiency 4) Hypothyroidism 5) Low back pain 6) Depression 7) Mastodynia 8) Lumbar radiculopathy 9) Irritable bowel syndrome characterized by alternating bowel habit 10) Fibromyalgia 11) Chronic pain in female pelvis 12) Kidney stone 13) Insomnia 14) Compartment syndrome 15) Obesity (SCT [id number]) 16) Arthritis 17) Intermittent palpitations 18) Chronic obstructive lung disease 19) Obstructive sleep apnea of adult 20) Poor pelvic muscle tone 21) Cervicalgia 22) Bacterial cellulitis 23) Overactive bladder CURRENT MEDICATIONS: Active Outpatient Medications (including Supplies): Active Outpatient Medications Status 1) CYANOCOBALAMIN 1000MCG/ML INJ INJECT 1000MCG/1ML ACTIVE INTRAMUSCULARLY EVERY MONTH FOR VITAMIN B12 SUPPLEMENTATION 2) DULOXETINE HCL 30MG EC CAP TAKE ONE CAPSULE BY MOUTH ACTIVE ONCE A DAY DO NOT ABRUPTLY DISCONTINUE MEDICATION. TO BE TAKEN ALONG WITH 60MG FOR TOTAL OF 90MG DAILY 3) DULOXETINE HCL 60MG EC CAP TAKE ONE CAPSULE BY MOUTH ACTIVE (S) ONCE A DAY DO NOT ABRUPTLY DISCONTINUE MEDICATION. TO BE TAKEN ALONG WITH 30MG FOR TOTAL OF 90MG DAILY 4) HYDROCODONE 5MG/ACETAMINOPHEN 325MG TAB TAKE 1 TABLET ACTIVE BY MOUTH EVERY 6 HOURS NEEDED FOR SEVERE PAIN CAUTION: DO NOT EXCEED 4000MG PER DAY ACETAMINOPHEN (APAP) FROM ALL MEDS. 5) LEVOTHYROXINE NA (SYNTHROID) 175MCG TAB TAKE ONE ACTIVE TABLET BY MOUTH EVERY MORNING BEFORE A MEAL FOR HYPOTHYROIDISM TAKE 30 MINUTES BEFORE FOOD. TAKE SEPARATELY FROM ALL OTHER MEDICATIONS. 6) LIDOCAINE 5% OINT APPLY SPARINGLY TO AFFECTED AREA(S) ACTIVE ONCE A DAY NEEDED FOR PAIN (EXTERNAL USE ONLY) (WASH HANDS THOROUGHLY AFTER USE) 7) METFORMIN HCL 1000MG TAB TAKE ONE-HALF TABLET BY ACTIVE MOUTH TWICE A DAY WITH MEALS TAKE WITH FOOD. AVOID ALCOHOL. DISCONTINUE BEFORE GETTING XRAY DYE. 8) METHYLPREDNISOLONE 4MG TAB DOSEPAK,21 TAKE TABLETS BY ACTIVE MOUTH DIRECTED TAKE 6 TABLETS BY MOUTH ON DAY ONE, THEN DECREASE BY ONE TABLET DAILY UNTIL GONE. TAKE WITH FOOD. 9) ONDANSETRON HCL 8MG TAB TAKE ONE-HALF TABLET BY MOUTH ACTIVE EVERY 6 HOURS NEEDED FOR NAUSEA/VOMITING 10) PRAMIPEXOLE DIHYDROCHLORIDE 1.5MG TAB TAKE ONE TABLET ACTIVE BY MOUTH TWICE A DAY FOR RESTLESS LEG SYNDROME 11) SYRINGE 3ML/NDL 23G 1.5IN USE 1 SYRINGE ACTIVE INTRAMUSCULARLY EVERY MONTH FOR CYANOCOBALAMIN ADMINISTRATION 12) TIZANIDINE HCL 4MG TAB TAKE ONE TABLET BY MOUTH THREE ACTIVE TIMES A DAY NEEDED FOR SPASTICITY 13) TRAZODONE HCL 100MG TAB TAKE ONE TABLET BY MOUTH AT ACTIVE BEDTIME NEEDED FOR INSOMNIA 1) HYDROMORPHONE INJ,SOLN IVP NOW 1MG/0.5ML 2) SODIUM CHLORIDE 0.9% INJ,SOLN IV . I have reviewed the patient's medication list with the patient and/or his/her care-communications department head. Any medication discrepancies have been resolved. Patient will be provided with an updated list of his/her medication(s). SURGICAL HISTORY: not pertinent FAMILY HISTORY: not pertinent SOCIAL HISTORY: Social History Main Topics: Smoking status: No data available for: Current Tobacco User Alcohol Use: not indorsed Negative mg/dL (12/31/23 21:27) Illicit Drug Use: not indorsed Sexual Activity: Other Topics of Concern: Child bearing age: N/A LMP: N/A possible: N/A ALLERGIES: Review of patient's allergies indicates: VITAMIN B12 1000MCG, PANTOPRAZOLE, AMOXICILLIN, FLONASE NASAL SOLUTION PREGABALIN, GABAPENTIN, METHOCARBAMOL PHYSICAL EXAM: VITAL SIGNS: 145/78 (07/16/2024 11:49)108 (07/16/2024 11:49)97% (07/16/2024 11:49)98.3 F [36.8 C] (07/16/2024 11:49)17 (07/16/2024 11:49)The OBJECT WEIGHT LAST 3 was NOT found...Contact IRM. MAThe OBJECT was NOT found...Contact IRM.PAIN ASSESSMENTThe OBJECT was NOT found...Contact IRM. Measurement DT PAIN 07/16/2024 11:49 9 CONSTITUTIONAL: No acute distress, Non-toxic appearance HENT: airway patent EYES: Conj pink, sclera clear NECK: Normal range of motion, No tenderness, Supple, No stridor, No LAD. CARDIOVASCULAR: Normal heart rate, Normal rhythm, No murmurs, No rubs, No gallops. PULMONARY/CHEST: CTA throughout, thorax stable without tenderness ABDOMEN: Bowel sounds normal, Soft, flat, No tenderness, No bruit, No masses, No pulsatile masses BACK: No tenderness, No CVA tenderness : RECTAL: EXTREMITIES: Left calf tenderness, normal range of motion, Intact distal pulses, NEUROLOGIC: Alert & oriented/reactive, Normal motor function, Normal gait, no ataxia, No focal deficits appreciated on cursory screening exam SKIN: Warm, Dry, No erythema, No rash LABS: See lab section of [facility] RADIOLOGY: TIBIA & FIBULA,LEFT, 2 VIEWS Exm Date: JUL 16, 2024@14:59 Req Phys: ROBERTA RIVAS Loc: [facility]EMERGENCY DEPT 2ND SHIFT (R Img Loc: [facility]MAIN RADIOLOGY SUITE Service: Unknown Screen: Patient answered no [facility] [address] [place] [address] (Case [id number] COMPLETE) TIBIA & FIBULA,LEFT, 2 VIEWS (RAD Detailed) CPT:56281 Proc Modifiers : LEFT Reason for Study: left calf pain, rule out foregin body Clinical History: Report Status: Verified Date Reported: JUL 16, 2024 Date Verified: JUL 16, 2024 Silver Spray Worker E-Sig:/ES/INDIO SHARMA Report: EXAMINATION: TIBIA & FIBULA,LEFT, [...] Normal examination. No visible radiopaque foreign bodies. US EXTREMITY VEINS UNILAT OR LTD Exm Date: JUL 16, 2024@14:47 Req Phys: ROBERTA RIVAS Loc: -EMERGENCY DEPT 2ND SHIFT (R Img Loc: -ULTRASOUND [facility] Service: Unknown Screen: Patient answered no [facility] [address] [place] [address] (Case [id number] COMPLETE) US EXTREMITY VEINS UNILAT OR LTD (US Detailed) CPT:17817 Reason for Study: left leg pain Clinical History: Report Status: Verified Date Reported: JUL 16, 2024 Date Verified: JUL 16, 2024 Silver Spray Worker E-Sig:/ES/INDIO SHARMA Report: Case [id number] US EXTREMITY VEINS UNILAT OR LTD Comparison: Left lower extremity ultrasound 11/09/2023. Findings: The left lower extremity deep veins are compressible throughout their course. No thrombi are visualized. Venous flow velocities demonstrate normal variation with respiration and augmentation. Impression: No evidence of deep venous thrombosis of the left lower extremity deep veins. ECG IMPRESSION: Deferred ED COURSE & MEDICAL DECISION MAKING: Nursing notes, medications, vital signs, allergies and pertinent labs & imaging studies reviewed (see chart for details) with lab results reviewed with patient and family/caregivers at bedside and radiology results reviewed with patient and any family/caregivers at bedside. Stable, alert, nontoxic, nonfocal, [place] still with significant pain and anxiety despite IV Dilaudid and Ativan, does have some mild erythema to the left calf, will give IV Rocephin to cover, will admit for PT OT and intractable pain Clinical information obtained from an independent historian. History obtained from or confirmed by: ___spouse ___parent ___guardian ___family ___friend ___EMS ___other: Discussed with radiology regarding test interpretation imaging: I performed an independent interpretation of: ___EKG ___rhythm strip _x__plain x-ray ___ultrasound ___CT scan ___MRI ___other Patient's care impacted by: ___Diabetes ___Hypertension ___Cancer ___other: Patient's care is significantly limited by social determinants of health including, but not limited to: ___inadequate housing __x_low income ___alcoholism and drug addiction in patient or family ___problems related to primary support group ___unemployment ___problems with employment ___language barrier ___lack of transportation ___psychiatric disease ___other social determinants of health: External records reviewed: ___Inpatient records ___office records __x_outpatient records ___prior outpatient labs ___prior outpatient radiology ___primary care record ___outside ED record ___PMD referral ___outside ER ___urgent care referral ___other: Management of the patient was discussed with: _x__Hospitalist ___Consultant ___Behavioral health provider ___Primary care provider ___Other: The following testing was considered but ultimately was not performed after discussion with the patient/family: I considered prescription management with the following but ultimately did not prescribe: ___Pain medication ___Antiviral ___Antibiotic ___Other: ___I considered admission/ observation but decided upon discharge due to: hospitalization not required HOST/HOSTESS HEAD SERVICE/TIME: MEDICATIONS GIVEN IN ED: [ ] YES [ ] NO DIFFERENTIAL DIAGNOSES CONSIDERED: Strain for cellulitis versus DVT versus less likely arterial insufficiency versus radiculopathy versus electrolyte abnormality versus other DECISION to ADMIT: 1:34 PM DISPOSITION CONDITION:[x ] Improved [ ] Unchanged [ ] Deteriorated CLINICAL IMPRESSION: 1 -left calf strain 2 -left calf cellulitis 3 - DISCHARGE INSTRUCTIONS AND PATIENT-DIRECTED FOLLOW-UP RECOMMENDATIONS: DIET: regular ACTIVITY: ad daniel NEW MEDS: MEDICATION RECONCILIATION: CONTINUE ALL PRESCRIBED MEDICATIONS DIRECTED EXCEPT: FOLLOW-UP WITH PRIMARY MACHINE LEAD BURNER/SPECIALIST: routine in 1-2 weeks if not improving, sooner if worse RETURN TO EMERGENCY: if any worries or concerns ADDITIONAL SIGNATURE PCP: [x ] YES [ ] NO [ ] not listed Active Outpatient Medications (including Supplies): Active Outpatient Medications Status 1) CYANOCOBALAMIN 1000MCG/ML INJ INJECT 1000MCG/1ML ACTIVE INTRAMUSCULARLY EVERY MONTH FOR VITAMIN B12 SUPPLEMENTATION 2) DULOXETINE HCL 30MG EC CAP TAKE ONE CAPSULE BY MOUTH ACTIVE ONCE A DAY DO NOT ABRUPTLY DISCONTINUE MEDICATION. TO BE TAKEN ALONG WITH 60MG FOR TOTAL OF 90MG DAILY 3) DULOXETINE HCL 60MG EC CAP TAKE ONE CAPSULE BY MOUTH ACTIVE (S) ONCE A DAY DO NOT ABRUPTLY DISCONTINUE MEDICATION. TO BE TAKEN ALONG WITH 30MG FOR TOTAL OF 90MG DAILY 4) HYDROCODONE 5MG/ACETAMINOPHEN 325MG TAB TAKE 1 TABLET ACTIVE BY MOUTH EVERY 6 HOURS NEEDED FOR SEVERE PAIN CAUTION: DO NOT EXCEED 4000MG PER DAY ACETAMINOPHEN (APAP) FROM ALL MEDS. 5) LEVOTHYROXINE NA (SYNTHROID) 175MCG TAB TAKE ONE ACTIVE TABLET BY MOUTH EVERY MORNING BEFORE A MEAL FOR HYPOTHYROIDISM TAKE 30 MINUTES BEFORE FOOD. TAKE SEPARATELY FROM ALL OTHER MEDICATIONS. 6) LIDOCAINE 5% OINT APPLY SPARINGLY TO AFFECTED AREA(S) ACTIVE ONCE A DAY NEEDED FOR PAIN (EXTERNAL USE ONLY) (WASH HANDS THOROUGHLY AFTER USE) 7) METFORMIN HCL 1000MG TAB TAKE ONE-HALF TABLET BY ACTIVE MOUTH TWICE A DAY WITH MEALS TAKE WITH FOOD. AVOID ALCOHOL. DISCONTINUE BEFORE GETTING XRAY DYE. 8) METHYLPREDNISOLONE 4MG TAB DOSEPAK,21 TAKE TABLETS BY ACTIVE MOUTH DIRECTED TAKE 6 TABLETS BY MOUTH ON DAY ONE, THEN DECREASE BY ONE TABLET DAILY UNTIL GONE. TAKE WITH FOOD. 9) ONDANSETRON HCL 8MG TAB TAKE ONE-HALF TABLET BY MOUTH ACTIVE EVERY 6 HOURS NEEDED FOR NAUSEA/VOMITING 10) PRAMIPEXOLE DIHYDROCHLORIDE 1.5MG TAB TAKE ONE TABLET ACTIVE BY MOUTH TWICE A DAY FOR RESTLESS LEG SYNDROME 11) SYRINGE 3ML/NDL 23G 1.5IN USE 1 SYRINGE ACTIVE INTRAMUSCULARLY EVERY MONTH FOR CYANOCOBALAMIN ADMINISTRATION 12) TIZANIDINE HCL 4MG TAB TAKE ONE TABLET BY MOUTH THREE ACTIVE TIMES A DAY NEEDED FOR SPASTICITY 13) TRAZODONE HCL 100MG TAB TAKE ONE TABLET BY MOUTH AT ACTIVE BEDTIME NEEDED FOR INSOMNIA /tamera/ ROBERTA RIVAS MD STAFF PHYSICIAN Signed: 07/16/2024 18:46 Receipt Acknowledged By: 2024 09:26 /tamera/ ROBERTA KHAN MD [facility]
--- OUTSIDE RECORDS SUMMARY | 2025-03-22 21:58 | XMS_ITS | Encounter Summary ---
Author Name [facility] [place] [facility] [place] [facility] [place] Address [address] [place] [address] Care Team Providers Care Industrial Order Clerk Name Role Phone VERNA LYLE Primary Care Provider Unavailabl e Insurance Providers: [...] AID (WNR) Oct 23, 2016 MEDICAI D [id number] GERDA NUNES PATIENT Selected Encounter This section includes the information on record at [place] for the Encounter. Date/Time Encounter Type Encounter Description Reason Provider Source Nov 07, 2024 12:30 PM MTMS BY PHARM ADDL 15 MIN CLINICAL PHARMACY ICD-10-CM F11.90 Opioid use, unspecified, uncomplicated TERENCE JON IHCecile Encounter Template Text not used by [place] Assessments - Encounter Diagnoses This section includes the primary and secondary diagnoses documented for the Encounter. Date/Time Primary/Secondary Diagnosis Diagnosis Name Provider Source Nov 07, 2024 03:02 PM PRIMARY Opioid use, unspecified, uncomplicated TERENCE JON [facility] Nov 07, 2024 03:02 PM SECONDARY Cervicalgia TERENCE JON [facility] Nov 07, 2024 03:02 PM SECONDARY Fibromyalgia TERENCE JON [facility] Nov 07, 2024 03:02 PM SECONDARY Major depressive disorder, recurrent, moderate TERENCE JON [facility] Nov 07, 2024 03:02 PM SECONDARY Pelvic and perineal pain TERENCE JON [facility] Plan of Treatment: Future Appointments (+ 6 months) and Future Tests (+/- 45 days) The Plan of Treatment section includes future care activities for the patient from [facility] This section includes future appointments and future orders which are active, pending or scheduled. Future Appointments This section includes appointments that were scheduled to occur 6 months from the date of the Encounter, up to a maximum of 20 appointments. The data comes from all [facility]. Appointment Date/Time Appointment Type Appointme nt Facility Name Nov 12, 2024 10:30 AM AMBULATORY - MEDICINE [facility] Nov 14, 2024 09:30 AM AMBULATORY - MEDICINE [facility] Nov 26, 2024 12:30 PM AMBULATORY - SURGERY [facility] Dec 17, 2024 06:28 PM AMBULATORY - MEDICINE [facility] Jan 02, 2025 01:00 PM AMBULATORY - PSYCHIATRY [facility] Jan 07, 2025 11:30 AM AMBULATORY - MEDICINE [facility] Apr 18, 2025 02:30 PM AMBULATORY - PSYCHIATRY [facility] Active, Pending, and Scheduled Orders This section includes a listing of several types of active, pending, and scheduled orders, including clinic medications orders, diagnostic test orders, procedure orders and consult orders; where the start date of the order is 45 days before the date of the Encounter or 45 days after the date of theEncounter. The data comes from all [facility]. Test Date/Time Test Type Test Details Facility Name Sep 24, 2024 03:02 PM Laboratory - Chemi stry Order TSH W/ REFLEX FT4 (STL) GREEN LI-HEP PLASMA WC [facility] Nov 07, 2024 09:39 AM Laboratory - Microbiology Order BLOOD CULT (SET 1) B D BLD. BOTTLE BLOOD [facility] Nov 07, 2024 09:39 AM Laboratory - Microbiology Order BLOOD CULT (SET 2) B D BLD. BOTTLE (SET 2) BLOOD [facility] Lab Results: +/- 30 days of the encounter This section includes the Chemistry and Hematology Lab Results on record with [place] for the patient. Radiology Reports and Pathology Reports are provided separately, in subsequent sections. Lab Results This section contains the Chemistry/Hematology Results that were resulted 30 days before or 30 daysafter the date of the Encounter. Date/Time Source Result Type Result - Unit Interpretation Reference Range Specimen Type Comment Nov 08, 2024 05:42 AM [facility] RENAL PANEL PLASMA Specimen Type: PLASMA Comment: No hemolysis noted. Ordering Provider: SIMI WALTERS Report Released Date/Time: Nov 07, 2024 11:32 PM Reporting Lab: [address] [address] Performing Lab: [address] [address] CREATININE 0.79 mg/dL 0.6-1.1 UREA NITROGEN 21.2 mg/dL 9.0-25.0 GLUCOSE 87 mg/dL 72-99 SODIUM 142 meq/L 136-145 POTASSIUM 3.9 meq/L 3.5-5 CHLORIDE 106 meq/L 98-107 CARBON DIOXIDE 27 meq/L 22-31 CALCIUM 9.4 mg/dL 8.4-10.4 PHOSPHOROUS 4.9 mg/dL H 2.3-4.7 ALBUMIN 3.6 g/dL 3.4-5 EGFR (CKD-EPI 2020) 92.2 >60 Nov 08, 2024 05:42 AM [facility] MAGNESIUM PLASMA Specimen Type: PLASM A Comment: No hemolysis noted. Ordering Provider: SIMI WALTERS Report Released Date/Time: Nov 07, 2024 11:32 PM Reporting Lab: [address] [address] Performing Lab: [address] [address] MAGNESIUM 2.0 mg/dL 1.6-2.6 Nov 08, 2024 05:42 AM [facility] CBC BLOOD Specimen Type: BLOOD No comment entered. Ordering Provider: SIMI WALTERS Report Released Date/Time: Nov 07, 2024 11:32 PM Reporting Lab: [facility] [address] [facility] [address] Performing Lab: [address] [address] WBC 6.3 10*3/uL 3.6-11.2 RBC 4.40 10*6/uL [...] 0.00-0. 20 Nov 08, 2024 05:00 AM [facility] MRSA SURVL NARES DNA NARES Specimen [...] Nov 07, 2024 11:32 PM Reporting Lab: [address] [address] Performing Lab: [address] [address] MRSA SURVL NARES DNA Negative Negative Nov 07, 2024 12:35 PM [facility] URINE DRUG SCREEN (STL) URINE Specimen Type: URINE Comment: The cut-off value for Fentanyl was laboratory developed and its performance characteristics confirmed by the [facility] laboratory thru method comparison with reference laboratory and medication chart review. The laboratory is regulated under CLIA as qualified to perform high-complexity testing. Fentanyl is used for clinical purposes in conjunction with other laboratory tests. Ordering Provider: SUKHDEEP HENRY Report Released Date/Time: Nov 07, 2024 09:39 AM Reporting Lab: [address] [address] Performing Lab: [address] [address] ETHANOL <10 mg/dL 0-9 AMPHET/METHAMPHETAMINE Negative ng/mL COCAINE METABOLITES Negative ng/mL BENZODIAZEPINES (STL) POSITIVE ng/mL CANNABINOIDS Negative ng/mL METHADONE Negative ng/mL OPIATES Negative ng/mL CREATININE URINE/OTHERS 107.3 mg/dL 47-1 10 OXYCODONE ([id number]) Negative ng/mL BUPRENORPHINE (STL-PB-MA) Negative ng/mL FENTANYL (STL) Negative ng/mL Nov 07, 2024 12:35 PM [facility] URINALYSIS (STL-PB) URINE Specimen Type: URIN E No comment entered. Ordering Provider: SUKHDEEP HENRY Report Released Date/Time: Nov 07, 2024 09:40 AM Reporting Lab: [address] [address] Performing Lab: [address] [address] URINE COLOR Yellow Yellow U.BILIRUBIN Negative mg/dL [...] GRAVITY 1.023 Nov 07, 2024 11:22 AM [facility] SEROTONIN SERUM Specimen Type: SERUM Comment: This test was developed and its analytical performance characteristics have been determined by [facility]. It has not been cleared or approved by FDA. This assay has been validated pursuant to the CLIA regulations and is used for clinical purposes. Test performed by [employer] [address] [place], [place] [address], [place] [address] Data Collection Associate: Lois Valenzuela MD,PHD,JESSICA Test Reported by [facility], [address] [place] [address] Remi Dos Santos M.D., Ph.D., Director of Laboratories , CLIA [id number] This test was developed and its analytical performance characteristics have been determined by [facility]. It has not been cleared or approved by FDA. This assay has been validated pursuant to the CLIA regulations and is used for clinical purposes. Test performed by [employer] [facility] [address] [place] [address] Data Collection Associate: Lois Valenzuela MD,PHD,JESSICA Test Reported by [facility], [address] [place], [place] Remi Dos Santos M.D., Ph.D., Director of Laboratories , CLIA [id number] Ordering Provider: SUKHDEEP HENRY Report Released Date/Time: Nov 07, 2024 10:04 AM Reporting Lab: [facility] [address] [facility] [address] Performing Lab: [facility] [address] [facility] [address] SEROTONIN 16 ng/mL L 56-244 Nov 07, 2024 11:22 AM [facility] TSH (MA-PB) SERUM Specimen Type: SERUM No comment entered. Ordering Provider: SUKHDEEP HENRY Report Released Date/Time: Nov 07, 2024 09:56 AM Reporting Lab: [address] [address] Performing Lab: [address] [address] TSH 3.321 u[IU]/mL 0.47-5 Nov 07, 2024 09:57 AM [facility] COMPREHENSIVE METABOLIC PANEL PLASMA Specimen Type: PLASMA Comment: No hemolysis noted. Ordering Provider: MANNY GORDON Report Released Date/Time: Nov 07, 2024 09:15 AM Reporting Lab: [address] [address] Performing Lab: [address] [address] CREATININE 0.84 mg/dL 0.6-1.1 UREA NITROGEN 20.2 [...] 85.7 >60 Nov 07, 2024 09:57 AM [facility] CBC BLOOD Specimen Type: BLOOD No comment entered. Ordering Provider: MANNY GORDON Report Released Date/Time: Nov 07, 2024 09:14 AM Reporting Lab: [address] [address] Performing Lab: [place] [address] [address] WBC 10.4 10*3/uL 3.6-11.2 RBC 4.99 10*6/uL [...] 0.00-0. 20 Nov 07, 2024 09:49 AM [facility] LIPASE PLASMA Specimen Type: PLASM A No comment entered. Ordering Provider: SUKHDEEP HENRY Report Released Date/Time: Nov 07, 2024 09:39 AM Reporting Lab: [place] [address] [facility] [address] Performing Lab: [address] [address] LIPASE 35 U/L 8-78 Nov 07, 2024 09:49 AM [facility] ETHANOL SERUM/PLASMA (STL) PLASMA Specimen Typ e: PLASMA No comment entered. Ordering Provider: SUKHDEEP HENRY Report Released Date/Time: Nov 07, 2024 09:39 AM Reporting Lab: [address] Performing Lab: [address] [address] ETHANOL SERUM/PLASMA (STL) <10 mg/dL 0-9 Nov 07, 2024 09:49 AM [facility] RESPIRATORY PCR PANEL NASOPHARYNX Specimen Type: NASOPHARYNX Comment: The [employer] RP Panel combines nested multiplex PCR and [...] available to the clinician evaluating the patient. Chasity CHOI, (937) Ordering Provider: SUKHDEEP HENRY Report Released Date/Time: Nov 07, 2024 09:39 AM Reporting Lab: [address] Performing Lab: [place] [phone] *Adenovirus (BF) Not Detected Not Detect ed [...] Dete cted Nov 07, 2024 09:49 AM [facility] CPK PLASMA Specimen Type: PLASM A No comment entered. Ordering Provider: SUKHDEEP HENRY Report Released Date/Time: Nov 07, 2024 09:48 AM Reporting Lab: [facility] [address] [facility] [address] Performing Lab: [facility] [address] [place] [address] CPK 61 U/L 29-168 Oct 22, 2024 12:03 PM [facility] FERRITIN SERUM Specimen Type: SERUM No comment entered. Ordering Provider: EZ TAPIA Report Released Date/Time: Oct 22, 2024 11:52 AM Reporting Lab: [facility] [address] [address] Performing Lab: [facility] [address] [facility] [address] FERRITIN 173.22 ng/mL 10-204 Oct 22, 2024 12:03 PM [facility] B12 SERUM Specimen Type: SERUM No comment entered. Ordering Provider: EZ TAPIA Report Released Date/Time: Oct 22, 2024 11:54 AM Reporting Lab: [facility] [address] [facility] [address] Performing Lab: [facility] [address] [facility] [address] B12 440 pg/mL 213-816 Oct 22, 2024 12:03 PM [facility] IRON/TIBC PROFILE SERUM Specimen Type: SERUM No comment entered. Ordering Provider: EZ TAPIA Report Released Date/Time: Oct 22, 2024 11:52 AM Reporting Lab: [facility] [address] [facility] [address] Performing Lab: [facility] [address] [facility] [address] TIBC 324 ug/dL 250-450 TRANSFERRIN 259 mg/dL 173-360 IRON SATURATION 45 20-50 IRON 146 ug/dL 50-170 Oct 22, 2024 12:03 PM [facility] CBC BLOOD Specimen Type: BLOOD No comment entered. Ordering Provider: EZ TAPIA Report Released Date/Time: Oct 22, 2024 11:52 AM Reporting Lab: [facility] [address] [facility] [address] Performing Lab: [facility] [address] [facility] [address] WBC 6.5 10*3/uL 3.6-11.2 RBC 4.69 10*6/uL [...] 0.60 BASOPHILS, ABSOLUTE 0.05 10*3/uL 0.00-0. 20 Radiology Reports: +/- 30 days of the [...] the Encounter. The data comes from all [facility]. Date/Time Radiology Report Provider Source Nov 26, 2024 01:13 PM HIP, UNILAT, 2-3 V IEWS LEFT W OR W/O PELVIS: GERDA NUNES [id number] -1975 F Exm Date: NOV 26, 2024@13:13 Req Phys: GALDINO FONTANA Loc: BIN-ORTHO MD 1 (Req'g Loc) Img Loc: -MAIN RADIOLOGY SUITE Service: Unknown Screen: Patient answered no [facility] [address] [place] [address] (Case [id number] COMPLETE) HIP, UNILAT, 2-3 VIEWS LEFT W OR (RAD Detailed) CPT:97032 Proc Modifiers : LEFT, AP Pelvis, Frog Reason for Study: Left hip pain Clinical History: Report Status: Verified Date Reported: NOV 28, 2024 Date Verified: NOV 28, 2024 Fern Gatherer E-Sig:/ES/ROSALINA CHANG Report: EXAMINATION: HIP, UNILAT, 2-3 VIEWS LEFT W OR W/O PELVIS DATE: 11/26/2024 1:13 PM HISTORY: Left hip pain. COMPARISON: None. VIEWS:3 FINDINGS:Minimal joint narrowing left hip. No fracture, subluxation or dislocation. No focal destructive process. Minimal left sacroiliac osteoarthritis. Impression: 1. No acute injury or focal destructive process. 2. Minimal left hip and left sacroiliac osteoarthritis. Primary Interpreting Staff: ROSALINA CHANG, RADIOLOGIST (Fern Gatherer) /ROSALINA CROCKER [facility] Nov 07, 2024 04:[address] HEAD W/O CONT: GERDA NUNES [id number] -1975 F Exm Date: NOV 07, 2024@16:16 Req Phys: SUKHDEEP HENRY Loc: -EMERGENCY DEPT 2ND SHIFT (R Img Loc: -CT IMAGING BIN Service: Unknown Screen: Patient answered no [facility] [address] [place] [address] (Case [id number] COMPLETE) CT HEAD W/O CONT (CT Detailed) CPT:59737 Reason for Study: headache Clinical History: Responsible [...] 07, 2024 Date Verified: NOV 07, 2024 Fern Gatherer E-Sig:/ES/Geneva Egan MD Report: CT HEAD W/O CONT CASE #: [id number] DATE:11/07/2024 4:46 PM CLINICAL HISTORY:headache COMPARISON: 6 [...] Primary Interpreting Staff: Geneva Egan MD, Radiologist (Fern Gatherer) /GENEVA WESTFALL [facility] Nov 07, 2024 09:44 AM CHEST PORTABLE: GERDA NUNES [facility] [id number] -1975 F Exm Date: NOV 07, 2024@09:44 Req Phys: SUKHDEEP HENRY Loc: BIN-EMERGENCY DEPT 2ND SHIFT (R Img Loc: BIN-MAIN RADIOLOGY SUITE Service: Unknown Screen: Patient answered no [facility] [address] [place] [address] (Case [id number] COMPLETE) CHEST PORTABLE (RAD Detailed) CPT:48120 Proc Modifiers : Portable Reason for Study: , cough Clinical History: Cough and fever Report Status: Verified Date Reported: NOV 07, 2024 Date Verified: NOV 07, 2024 Fern Gatherer E-Sig:/ES/SYED MCGINNIS MD Report: Case #[id number]. Chest [...] SYED MCGINNIS MD, Staff Physician - Radiologist (Fern Gatherer) /SYED HOWARD [facility] Pathology Reports: +/- 30 days of [...] the Encounter. The data comes from all [facility] treatment facilities. Date/Time Pathology Report Provider Source Nov 07, 2024 12:35 PM LR MICROBIOLOGY RE PORT: Accession [UID]: [id number] [[id number]] Received: Nov 07, 2024@15:52 Collection sample: URINE,CLEAN CATCH Collection date: Nov 07, 2024 12:35 Site/Specimen: URINE Provider: SUKHDEEP HENRY Test(s) ordered: C&S URINE..................... completed: Nov 08, 2024 22:06 * BACTERIOLOGY FINAL REPORT => Nov 08, 2024 22:08 TECH CODE: [id number] Bacteriology Remark(s): CULTURE SHOWS <10,000 CFU/ML NATURE OF GROWTH SUGGESTS CONTAMINATION OR DELAY IN TRANSPORT. There will be no work up. NICHO 11/08/24 =--=--=--=--=--=--=--=--=--= --=--=--=--=--=--=--=--=--=- -=--=--=--=--=--=--=-- Performing Laboratory: Bacteriology Report Performed By: [facility], [facility] [address] [facility] CLIA# [id number] [address] [facility] [address] [place] [address] LENIN DILLARD [facility] Encounter Notes: All associated encounter notes This section contains the clinical notes associated to the Encounter. Date/Time Encounter Note(s) Provider Source Nov 05, 2024 02:08 PM MEDICATION MGT NOT E: LOCAL TITLE: OPIOID INTERDISCIPLINARY RISK REVIEW DATA-BASED STL STANDARD TITLE: MEDICATION MGT NOTE DATE OF NOTE: NOV 05, 2024@14:08 ENTRY DATE: NOV 05, 2024@14:08:14 AUTHOR: TERENCE JONIGNER: URGENCY: STATUS: COMPLETED [place] is a 49 year old FEMALE identified by the Stratified Tool for Opioid Risk Mitigation (STORM) dashboard who is being reviewed by an interdisciplinary team regarding the use of opioid therapy per policy. The information in this review is intended for the 's care team who have been added as additional signers on this note. Current Pain Regimen: Duloxetine 90 mg daily Gabapentin 300 mg TID Lidocaine 5% ointment daily PRN Tizanidine 4 mg TID PRN Tramadol 50 mg 4x daily PRN Utilizing note title <Controlled Substance Prescribing STL> or the Controlled Substances Prescribing Clinical Reminder is required for new controlled substance prescriptions and annually RECOMMENDATIONS FOR RISK MITIGATION AND USE OF UNIVERSAL PRECAUTIONS: - OEND -Naloxone kit last filled 02/26/2024 -Naloxone filled within previous 12 months, no use has been noted - PDMP Query -No non-VA findings. See separate note. - UDS -UDS not required if not on long term care social worker opioid therapy. - Consent for Care Home Opioid Therapy (LTOT): -Not required as patient is not on LTOT RECOMMENDATIONS FOR OTHER TREATMENT OPTIONS -Recommend consider whole health consult, if clinically appropriate -Recommend consider referral to IPR program, if clinically appropriate -Obtain Vitamin B12 and Vitamin D levels as they can impact chronic pain -Medications, if clinically appropriate -Lidocaine patch: Apply 1 patch daily for 12 hours, remove for 12 hours -Salonpas patch: Apply 1-2 patches every 8 hours. Max of 4 patches per day per [place] policy -Mental Health -Recommend continuing to follow with , if clinically appropriate -Recommend suicide safety plan should patient become acutely suicidal. Per STORM, is identified as VERY HIGH risk for suicide-related event or overdose in the next year. This tool takes into account mental health history, substance abuse history, medical conditions and current medications when calculating risk. RISK OF ADVERSE EVENTS & CLINICAL FACTORS THAT INCREASE RISK FOR PATIENT (include STORM data here): +++++++++++++++++++++++++++++ +++++++++++++++++++++++++++++ ++++++ Stratified Tool for Opioid Risk Mitigation([facility]) Review Note +++++++++++++++++++++++++++++ +++++++++++++++++++++++++++++ ++++++ Date: 11/05/2024 2:07:33 PM Name: GERDA NUNES Last Four: [id number] Age: 49 Gender: Woman Address: [address] [place] [address] PATIENT'S CURRENT RISK LEVEL AND CURRENT HIGH RISK FLAGS === STORM Model Risk Estimates Risk of suicide-related event or overdose in the next year: 9% (Very High - Active Opioid Rx) Risk of suicide-related event, overdose, fall or accident in the next 3 years: 32% (Medium - Active Opioid Rx) RIOSORD Risk Class: 3 RIOSORD Score: 36 REACH VET Currently Identified in REACH VET: No In REACH VET in the past 24 months: No High Risk Flags High Risk For Suicide: No Behavioral: No Missing Patient: No FACTORS CONTRIBUTING TO PATIENT'S RISK === Diagnosis Medical: - Chronic Pulmonary Dis - Hypertension - Hypothyroidism - Liver Disease - Obesity - Rheumatoid Arthritis/Collagen Vascular Disease Mental Health: - Depression - Major Depressive Disorder - Other Mental Health per STORM paper - PTSD Medications Opioid: - TRAMADOL Lyle,Verna A([facility]) Pain Medications (Sedating): - GABAPENTIN Lyle,Verna A([facility]) - DULOXETINE TessyampdejambnatRick([facility]) Zahed,Leonor([facility]) METHODS TO REDUCE PATIENT'S RISK Risk Mitigation Strategies: [X] MEDD < 90 (30 Day Avg) 40 [X] Naloxone Kit (365 Days) 02/26/2024 Filled [X] Timely Follow-up (90 Days) 10/22/2024 [X] Timely Drug Screen (NA) 12/31/2023 [X] Psychosocial Assessment (365 Days) 07/17/2024 [ ] Psychosocial Tx (365 Days) [ ] Bowel Regimen (365 Days) [ ] PDMP (90 Days) 07/08/2024 [ ] Data-based Risk Review (365 Days) 04/14/2023 [ ] Suicide Safety Plan (365 Days) [ ] Mandated Risk Mitigations Met Non-pharmacological Pain Treatments: [ ] Active Therapies [X] [facility] Therapies 04/18/24 [ ] 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 [ ] Occupational Therapy [X] Pain Clinic 04/18/24 [ ] Physical Therapy/PM&R [ ] Specialty Therapy [ ] Other Therapy APPOINTMENTS Last [facility] Contact [facility] - Primary Care Appointment TELEPHONE PRIMARY CARE 07/09/2024 08:30 AM - Emergency Room EMERGENCY DEPT 07/16/2024 11:43 AM - Appointment [facility] CLINIC - IND 07/17/2024 03:29 PM - Any Clinical Appointment ONCOLOGY/TUMOR 10/22/2024 11:30 AM - Other Appointment LABORATORY 10/22/2024 12:04 PM Future Appointments [facility] - Other Appointment ORTHO/JOINT SURG 11/26/2024 12:30 PM - Appointment [facility] - IND 01/02/2025 01:00 PM ASSIGNED PROVIDERS [place], [place] [facility] Lyle,Verna A - Primary Care Provider [facility] PACT 6 PCP Cherrie Dickey ([facility]) Registered Nurse [facility] - BHIP 1 SUPPLEMENTAL MEDICATION INFORMATION Non-VA Controlled Substance Prescriptions: This risk assessment is based on available information in the corporate data warehouse which may lag from CPRS (usually 1-2 days) and only includes information previously documented in the medical record. This risk assessment should be used as one element to inform an overall clinical treatment plan. Further assessment, reassessment, and treatment planning should be completed as clinically indicated by this [place]'s established care teams. The calculated risk score is determined by both static and dynamic factors. Treatment planning should focus on providing the best whole person clinical care while aiming to reduce the risk of adverse events and should not aim at reducing the calculated risk score. +++++++++++++++++++++++++++++ +++++++++++++++++++++++++++++ +++++ Stratified Tool for Opioid Risk Mitigation (STORM) Review Note +++++++++++++++++++++++++++++ +++++++++++++++++++++++++++++ +++++ CURRENT MEDICAL PROBLEMS: 1) Family history of ischemic heart disease (SNOMED CT 910517979) 2) Migraine (SNOMED CT 65087021) 3) Vitamin D deficiency 4) Hypothyroidism 5) Low back pain 6) Depression 7) Mastodynia 8) Lumbar radiculopathy 9) Irritable bowel syndrome characterized by alternating bowel habit 10) Fibromyalgia 11) Chronic pain in female pelvis 12) Kidney stone 13) Insomnia 14) Compartment syndrome 15) Obesity ([facility] [id number]) 16) Arthritis 17) Intermittent palpitations 18) Chronic obstructive lung disease 19) Obstructive sleep apnea of adult 20) Poor pelvic muscle tone 21) Cervicalgia 22) Bacterial cellulitis 23) Overactive bladder 24) Iron deficiency CURRENT MEDICATIONS: Active Outpatient Medications (including Supplies): Active Outpatient Medications Status 1) CYANOCOBALAMIN 1000MCG/ML INJ INJECT 1000MCG/1ML ACTIVE INTRAMUSCULARLY EVERY 2 WEEKS Indication: FOR VITAMIN B12 SUPPLEMENTATION 2) DULOXETINE HCL 30MG EC CAP TAKE ONE CAPSULE BY MOUTH ONCE A ACTIVE DAY DO NOT ABRUPTLY DISCONTINUE MEDICATION. TO BE TAKEN ALONG WITH 60MG FOR TOTAL OF 90MG DAILY Indication: FOR DEPRESSION 3) DULOXETINE HCL 60MG EC CAP TAKE ONE CAPSULE BY MOUTH ONCE A ACTIVE DAY DO NOT ABRUPTLY DISCONTINUE MEDICATION. TO BE TAKEN ALONG WITH 30MG FOR TOTAL OF 90MG DAILY Indication: FOR DEPRESSION 4) FOLIC ACID 1MG TAB TAKE ONE TABLET BY MOUTH ONCE A DAY ACTIVE Indication: FOR FOLIC ACID SUPPLEMENTATION 5) GABAPENTIN 300MG CAP TAKE ONE CAPSULE BY MOUTH THREE TIMES A ACTIVE DAY NEEDED Indication: FOR PAIN 6) LEVOTHYROXINE NA (SYNTHROID) 175MCG TAB TAKE ONE TABLET BY ACTIVE MOUTH EVERY MORNING BEFORE A MEAL TAKE 30 MINUTES BEFORE FOOD. TAKE SEPARATELY FROM ALL OTHER MEDICATIONS. Indication: FOR HYPOTHYROIDISM 7) LIDOCAINE 5% OINT APPLY SPARINGLY TO AFFECTED AREA(S) ONCE A ACTIVE DAY NEEDED (EXTERNAL USE ONLY) (WASH HANDS THOROUGHLY AFTER USE) Indication: FOR PAIN 8) SYRINGE 3ML/NDL 23G 1.5IN USE 1 SYRINGE INTRAMUSCULARLY ACTIVE EVERY 2 WEEKS Indication: FOR INJECTION 9) TIZANIDINE HCL 4MG TAB TAKE ONE TABLET BY MOUTH THREE TIMES ACTIVE A DAY NEEDED Indication: FOR SPASTICITY 10) TRAMADOL HCL 50MG TAB TAKE 1 TABLET BY MOUTH FOUR TIMES A ACTIVE DAY NEEDED Indication: FOR PAIN 11) TRAZODONE HCL 100MG TAB TAKE ONE TABLET BY MOUTH AT BEDTIME ACTIVE NEEDED Indication: FOR INSOMNIA 12) TRIAMCINOLONE ACETONIDE 0.1% CREAM APPLY SPARINGLY TO ACTIVE AFFECTED AREA(S) TWICE A DAY (EXTERNAL USE ONLY) Indication: FOR CONTACT [facility] MEDICATIONS: No medications found. Past [facility] opioids/non opioids trialed: Acetaminophen 2000 mg/day Amitriptyline 25 mg/day Capsaicin 0.075% cream Codeine/acetaminophen 120 mg/day Cyclobenzaprine 30 mg/day Diclofenac 1% gel Diclofenac 1000 mg/day Hydrocodone/acetaminophen 60 mg/day Ibuprofen 2400 mg/day Meloxicam 15 mg/day Methocarbamol 2000 mg/day Naproxen 1000 mg/day Nortriptyline 100 mg/day Oxycodone +/- acetaminophen 40 mg/day Pregabalin 50 mg/day Topiramate 200 mg/day Tramadol 400 mg/day Venlafaxine 150 mg/day ALLERGIES: VITAMIN B12 1000MCG, PANTOPRAZOLE, AMOXICILLIN, FLONASE NASAL SOLUTION PREGABALIN, METHOCARBAMOL RECENT LABS: AMPHET/METHAMPHETAMINE Negative ng/mL 12/31/2023 21:27 AMPHET/METHAMPHETAMINE Negative ng/mL 02/13/2023 13:51 AMPHET/METHAMPHETAMINE Negative ng/mL 08/03/2022 09:00 BENZODIAZEPINES (STL) 581.9000-POS ng/mL 02/13/2023 13:51 BENZODIAZEPINES (STL) Negative ng/mL 08/03/2022 09:00 BENZODIAZEPINES (STL) Negative ng/mL 08/01/2021 08:55 CANNABINOIDS Negative ng/mL 12/31/2023 21:27 CANNABINOIDS Negative ng/mL 02/13/2023 13:51 CANNABINOIDS Negative ng/mL 08/03/2022 09:00 COCAINE METABOLITES Negative ng/mL 12/31/2023 21:27 COCAINE METABOLITES Negative ng/mL 02/13/2023 13:51 COCAINE METABOLITES Negative ng/mL 08/03/2022 09:00 METHADONE Negative ng/mL 02/13/2023 13:51 METHADONE Negative ng/mL 08/03/2022 09:00 METHADONE Negative ng/mL 08/01/2021 08:55 OPIATES Negative ng/mL 12/31/2023 21:27 OPIATES Negative ng/mL 02/13/2023 13:51 OPIATES Negative ng/mL 08/03/2022 09:00 OXYCODONE (AVYSN-BUB-AO) Negative ng/mL 02/13/2023 13:51 OXYCODONE (NOESI-ZUF-YM) Negative ng/mL 08/03/2022 09:00 OXYCODONE (DASKL-CIH-QK) Negative ng/mL 08/01/2021 08:55 FENTANYL (STL) Negative ng/mL 02/13/2023 13:51 FENTANYL (STL) Negative 08/03/2022 09:00 CREATININE URINE/OTHERS 253.6 H mg/dL 12/31/2023 21:27 CREATININE URINE/OTHERS 228.5 H mg/dL 02/13/2023 13:51 CREATININE URINE/OTHERS 152.1 H mg/dL 08/03/2022 09:00 ETHANOL Negative mg/dL 12/31/2023 21:27 ETHANOL Negative mg/dL 02/13/2023 13:51 ETHANOL Negative mg/dL 08/03/2022 09:00 VITAMIN D, 25-HYDROXY 39.3 ng/mL 2024 06:00 SODIUM 142 mEq/L 07/20/2024 06:00 POTASSIUM [...] 06:00 EGFR (CKD-EPI 2020) 89.5 07/20/2024 06:00 HGA1C 5.7 % 06/07/2024 08:38 HGA1C 5.8 % 06/15/2022 11:58 HGA1C 5.7 % 03/25/2021 12:20 B12 440 pg/mL 10/22/2024 12:04 TSH 3.837 uIU/mL 07/17/2024 06:00 est CrCl: 80.9mL/min Providers present during review: Dr. David Cade - [facility] Dr. Faustino Haji - Clinical Pharmacy Dr. Terence Jon - Clinical Pharmacy [facility] PM[facility] Coord[facility] Dr. Elaina Arevalo - Pharmacy Pain/Palliative Care Resident Time spent in chart review: 30 minutes PBM PharmD Pharmacotherapy Rem V12: PHARMACIST INTERVENTIONS: PAIN MANAGEMENT High risk assessment evaluation Query of the [facility] Prescription Drug Monitoring Program (PDMP) /tamera/ Terence Jon PharmD, [facility] Clinical Area Relief Pilot - Pain Management Signed: 11/07/2024 15:03 Receipt Acknowledged By: 11/08/2024 13:12 /es/ GEOFF AL SIZING SPONGER- ROMEO MONROE-BC 11/08/2024 09:11 /es/ David Cade MD Staff Psychiatrist 11/08/2024 08:19 /es/ JACQUELINE CARMONA,PH.D. Staff Psychologist, Pain 11/07/2024 15:04 /es/ KAY HAJI PHARMFortinoDFortino, BCPS, BCACP CLINICAL HYDROGENATION STILL OPERATOR - PAIN MANAGEMENT 11/12/2024 08:51 /es/ VERNA LYLE MD 11/18/2024 11:50 /tamera/ KURT CRUZ PHARMD, BCACP, [facility] Facility PMOP Coordinator 11/07/2024 15:08 /tamera/ Cherrie Dickey, MARIBEL Registered Nurse, TERENCE VASQUEZ [facility] Nov 05, 2024 02:07 PM ACCOUNTING OF DISC LOSURES NOTE: LOCAL TITLE: STATE PRESCRIPTION DRUG MONITORING PROGRAM STANDARD TITLE: ACCOUNTING OF DISCLOSURES NOTE DATE OF NOTE: NOV 05, 2024@14:07:56 ENTRY DATE: NOV 05, 2024@14:07:56 AUTHOR: TERENCE JON EXP COSIGNER: URGENCY: STATUS: COMPLETED This PDMP query was submitted by Terence Jon [facility]. The clinical justification for this PDMP query is to review controlled substances prescribed outside of the [facility], and any additional information that may become available, as an important component of standard clinical care, and in accordance with [facility] policy. Patient information was shared with the PDMP [employer] [place]. No prescription(s) for controlled substances outside the [facility] were found in the last 90 days. /tamera/ Terence Jon PharmD, BCPS Clinical Area Relief Pilot - Pain Management Signed: 11/07/2024 14:28 TERENCE JON [facility]
--- OUTSIDE RECORDS SUMMARY | 2025-03-22 21:58 | XMS_ITS | Encounter Summary ---
Author Name [facility] (MD) Organization [facility] (MD) Address [address] [place] [address] Care Team Providers Care Operations Associate Name Role Phone VERNA BARRERA Primary Care [...] AID (WNR) Oct 23, 2016 MEDICAI D [id number] REBECA NUNES PATIENT Selected Encounter This section includes the information on record at MD for the Encounter. Date/Time Encounter Type Encounter Description Reason Provider Source Jun 07, 2024 07:44 AM EMERGENCY DEPT VISIT LOW [facility] ICD-10-CM R53.81 Other malaise YOMI SEVILLA Cecile Encounter Template Text not used by MD Assessments - Encounter Diagnoses This section includes the primary and secondary diagnoses documented for the Encounter. Date/Time Primary/Secondary Diagnosis Diagnosis Name Provider Source Jun 07, 2024 08:56 AM PRIMARY Other malaise YOMI SEVILLA [facility] Plan of Treatment: Future Appointments (+ 6 months) and Future Tests (+/- 45 days) The Plan of Treatment section includes future care activities for the patient [facility] This section includes future appointments and future orders which are active, pending or scheduled. Future Appointments This section includes appointments that were scheduled to occur 6 months from the date of the Encounter, up to a maximum of 20 appointments. The data comes from all [facility]. Appointment Date/Time Appointment Type Appointme nt Facility Name Jun 27, 2024 07:15 PM AMBULATORY - NONE [facility] Jul 08, 2024 08:44 PM AMBULATORY - MEDICINE [facility] Jul 09, 2024 08:30 AM AMBULATORY - MEDICINE [facility] Jul 16, 2024 11:43 AM AMBULATORY - MEDICINE [facility] Jul 22, 2024 10:00 AM AMBULATORY - MEDICINE [facility] Oct 22, 2024 11:30 AM AMBULATORY - MEDICINE [facility] Nov 07, 2024 08:41 AM AMBULATORY - MEDICINE [facility] Nov 12, 2024 10:30 AM AMBULATORY - MEDICINE [facility] Nov 14, 2024 09:30 AM AMBULATORY - MEDICINE [facility] Nov 26, 2024 12:30 PM AMBULATORY - SURGERY [facility] Active, Pending, and Scheduled Orders This section includes a listing of several types of active, pending, and scheduled orders, including clinic medications orders, diagnostic test orders, procedure orders and consult orders; where the start date of the order is 45 days before the date of the Encounter or 45 days after the date of theEncounter. The data comes from all [facility]. Test Date/Time Test Type Test Details Facility Name Jul 11, 2024 04:51 PM Laboratory - Chemi stry Order TSH W/ REFLEX FT4 (STL) GREEN LI-HEP PLASMA WC [facility] Jul 12, 2024 12:00 AM Laboratory - Chemi stry Order HAPTOGLOBIN (STL) GOLD/RED SST SERUM SP [facility] Jul 12, 2024 12:00 AM Laboratory - Chemi stry Order LDH GREEN LI/HEP BLD/PLAS PLASMA SP [facility] Jul 12, 2024 12:00 AM Laboratory - Chemi stry Order FERRITIN GOLD/RED SST SERUM SP [facility] Jul 12, 2024 12:00 AM Laboratory - Chemi stry Order IRON/TIBC PROFILE GOLD/RED SST SERUM SP [facility] Jul 12, 2024 12:00 AM Laboratory - Chemi stry Order B12 GOLD/RED SST SERUM SP [facility] Jul 12, 2024 12:00 AM Laboratory - Chemi stry Order FOLATE (STL-MA) GOLD/RED SST SERUM SP [facility] Jul 12, 2024 12:00 AM Laboratory - Chemi stry Order RETIC RATIO BLOOD SP ONCE . [facility] Jul 16, 2024 11:36 PM Laboratory - Chemi stry Order MRSA SURVL NARES DNA NARES WC [facility] Lab Results: +/- 30 days of the [...] Unit Interpretation Reference Range Specimen Type Comment Jun 07, 2024 08:48 AM [facility] COVID-19 DIAGNOSTIC (FLU/RSV)(STL) NASOPHARYNX Spec imen Type: NASOPHARYNX Comment: Qualitative real-time PCR and RT-PCR to detect viral RNA. A negative result does not preclude infection with the agent(s) tested and should not be used as the sole basis for treatment or other patient management decisions. If negative, but symptoms persist, consider re-testing. Positive results do not rule out bacterial infection or co-infection with other viruses. All results must be combined with clinical observations, patient history, and epidemiological information for final interpretation. Ordering Provider: YOMI SEVILLA Report Released Date/Time: Jun 07, 2024 08:20 AM Reporting Lab: [facility] [address] [address] Performing Lab: [place] [address] [facility] [address] INFLUENZA A Negative Negative INFLUENZA B Negative Negative COVID-19 (STL-PB) Not Detected Not Detec ilana RSV (Cepheid) NEGATIVE Negative Jun 07, 2024 08:38 AM [facility] TSH W/ REFLEX FT4 (STL) PLASMA Specimen Type: PLASMA No comment entered. Ordering Provider: VERNA BARRERA Report Released Date/Time: Jun 04, 2024 12:23 PM Reporting Lab: [address] [address] Performing Lab: [place] [address] TSH 15.172 u[IU]/mL H 0.47-5 FREE T4(REFLEX) 0.74 ng/mL 0.7-1.48 Jun 07, 2024 08:38 AM [facility] HGA1C BLOOD Specimen Type: BLOOD No comment entered. Ordering Provider: VERNA BARRERA Report Released Date/Time: Jun 04, 2024 12:23 PM Reporting Lab: [address] [address] Performing Lab: [address] [address] HGA1C 5.7 4.0-6.0 Jun 07, 2024 08:38 AM [facility] HEPATIC FUNTION PANEL (STL) PLASMA Specimen Ty pe: PLASMA No comment entered. Ordering Provider: VERNA BARRERA Report Released Date/Time: Jun 04, 2024 12:23 PM Reporting Lab: [address] [address] Performing Lab: [address] [address] PROTEIN 7.1 g/dL 6-8.6 ALBUMIN 4.1 g/dL 3.4-5 TOTAL BILIRUBIN 0.4 mg/dL 0.2-1.2 ALKALINE PHOSPHATASE 80 U/L 40-150 AST/SGOT 18 U/L 5-34 ALT/SGPT 11 U/L 8-40 CONJ. BILIRUBIN 0.2 mg/dL 0-0.5 Jun 07, 2024 08:37 AM [facility] BASIC METABOLIC PANEL PLASMA Specimen Type: PL ASMA Comment: No hemolysis noted. Ordering Provider: VERNA BARRERA Report Released Date/Time: May 29, 2024 09:43 AM Reporting Lab: [facility] [address] [facility] [address] Performing Lab: [address] [address] CREATININE 0.85 mg/dL 0.6-1.1 UREA NITROGEN 17.3 mg/dL 9.0-25.0 GLUCOSE 99 mg/dL 72-99 SODIUM 139 meq/L 136-145 POTASSIUM 4.2 meq/L 3.5-5 CHLORIDE 106 meq/L 98-107 CARBON DIOXIDE 27 meq/L 22-31 CALCIUM 9.7 mg/dL 8.4-10.4 EGFR (CKD-EPI 2020) 85.0 >60 Jun 07, 2024 08:37 AM [facility] CBC BLOOD Specimen Type: BLOOD No comment entered. Ordering Provider: VERNA BARRERA Report Released Date/Time: May 29, 2024 09:43 AM Reporting Lab: [address] [address] Performing Lab: [address] [address] WBC 6.1 10*3/uL 3.6-11.2 RBC 4.49 10*6/uL 3.60-5.00 HGB 13.0 g/dL 11.0-14.9 HCT 39.8 32.6-43.4 MCV 88.6 fL 80.0-100.0 MCH 29.0 pg 27.0-34.0 MCHC 32.7 g/dL L 33.0-36.0 PLT 304 10*3/uL 150-400 MPV 10.6 fL 7.5-11.2 RDW 13.4 11.8-15.1 LYMPHOCYTES, AUTO % 32 MONOCYTES, AUTO % 6 NEUTROPHILS, AUTO % 59 EOSINOPHILS, AUTO % 2 BASOPHILS, AUTO % 1 LYMPHOCYTES, ABSOLUTE 1.97 10*3/uL 0.77- 4.50 MONOCYTES, ABSOLUTE 0.34 10*3/uL 0.19-0. 80 NEUTROPHILS, ABSOLUTE 3.58 10*3/uL 2.10- 8.00 EOSINOPHILS, ABSOLUTE 0.13 10*3/uL 0.00- 0.60 BASOPHILS, ABSOLUTE 0.06 10*3/uL 0.00-0. 20 Vital Signs: All taken on the encounter date This section contains inpatient and outpatient Vital Signs collected on the date of the Encounter. Date/Time Temperature Pulse Blood Pressure Respiratory Rate SP02 Pain Height Weight Body Mass Index Source Jun 07, 2024 07:53 AM 98.5 85 143/96 18 7 [facility] N Social History: Smoking Status (Most current) and Tobacco Use (All prior to encounter date) This section includes the most current, and the historical, smoking and tobacco- related health factors from the MD facility where the Encounter took place. Current Smoking Status This section includes the most current smoking, or tobacco-related health factor, from the MD facility where the Encounter took place. Date/Time Current Smoking Status Comment Jessica sidhu Nov 09, 2023 06:45 AM ORYX ADMIT TOBACCO SCREEN NO [facility] Tobacco Use History This section includes a history of the smoking, or tobacco-related health factors, that were collected on or before the date of the Encounter. The data comes from the MD facility where the Encounter took place. Date/Time Smoking Status/Tobacco Use Comment F acility May 25, 2022 11:42 AM ORYX ADMIT TOBACCO SCREEN NO [facility] May 13, 2022 08:14 PM ORYX ADMIT TOBACCO SCREEN NO [facility] Apr 07, 2022 03:34 AM ORYX ADMIT TOBACCO SCREEN REFUSED [facility] Dec 20, 2021 12:44 PM ORYX ADMIT TOBACCO SCREEN NO [facility] Aug 23, 2021 08:22 PM ORYX ADMIT TOBACCO SCREEN NO [facility] Aug 12, 2021 06:24 PM ORYX ADMIT TOBACCO SCREEN NO [facility] May 12, 2008 06:16 PM LIFETIME NON-USER OF TOBACCO [facility] Jun 28, 2007 01:18 PM LIFETIME NON-USER OF TOBACCO [facility] May 03, 2006 10:56 AM LIFETIME NON-TOBACCO USER [facility] Dec 03, 2003 08:16 AM LIFETIME NON-TOBACCO USER [facility] Radiology Reports: +/- 30 days of the [...] the Encounter. The data comes from all MD treatment facilities. Date/Time Radiology Report Provider Source Jun 27, 2024 06:00 AM MRI SPINE THORACIC W/O CONT: KRISTINA NUNESITIRenata LOPEZ [id number] -[id number] F Exm Date: JUN 27, 2024@06:00 Req Phys: VERNA BARRERA Pat Loc: [facility] PACT 6 PCP (Req'g Lo Img Loc: OUTSIDE BIN-MRI Service: Unknown Screen: Patient answered no (Case [id number] COMPLETE) MRI SPINE THORACIC W/O CONT (MRI Detailed) CPT:96245 Reason for Study: OUTSIDE STUDY Clinical History: Report Status: Electronically Filed Date Reported: JUL 08, 2024 Report: This study was performed outside the MD in another facility and images were uploaded into [employer]. The report has been scanned into [employer]. In order to upload images a case number was needed, therefore this is an administrative report. Impression: This study was performed outside the MD in another facility and images were uploaded into [employer]. The report has been scanned into [employer]. In order to upload images a case number was needed, therefore this is an administrative report VERIFIED BY: / *ELECTRONICALLY FILED* [facility] Encounter Notes: All associated encounter notes This section contains the clinical notes associated to the Encounter. Date/Time Encounter Note(s) Provider Source Jun 10, 2024 04:46 PM PHYSICIAN LETTERS: LOCAL TITLE: TEST RESULT GENERAL LETTER STL STANDARD TITLE: PHYSICIAN LETTERS DATE OF NOTE: JUN 10, 2024@16:46 ENTRY DATE: JUN 10, 2024@16:46:32 AUTHOR: VERNA BARRERA COSIGNER: URGENCY: STATUS: COMPLETED [facility] [address] [place] [address] JUN 10, [address]ENS [address] [place] [id number] Dear Rebeca Nunes, I would like to update you on your recent test results. HEMOGLOBIN A1C - Gives us information about your diabetes (sugar or glucose) control over the past 3 months. Your target is to keep your A1C below 6 %. HGA1C 5.7 % 06/07/2024 08:38 These readings are within normal limits. CBC - A complete blood count (CBC) gives important information about the kinds and numbers of cells in the blood, especially red blood cells, white blood cells, and platelets. HGB 13.0 g/dL 06/07/2024 08:37 HEMATOCRIT 39.8 % (06/07/24 08:37) PLT 304 10*3/uL 06/07/2024 08:37 WHITE BLOOD COUNT 6.1 10*3/uL (06/07/24 08:37) These readings are within normal limits. CHEM 7 - This is important information about the current status of your kidneys, liver, and electrolyte and acid/base balance as well as of your blood sugar and blood proteins. SODIUM 139 mEq/L 06/07/2024 08:37 POTASSIUM 4.2 mEq/L 06/07/2024 08:37 CHLORIDE 106 mEq/L 06/07/2024 08:37 UREA NITROGEN 17.3 mg/dL 06/07/2024 08:37 CREATININE 0.85 mg/dL 06/07/2024 08:37 CALCIUM 9.7 mg/dL 06/07/2024 08:37 CARBON DIOXIDE 27 mEq/L 06/07/2024 08:37 GLUCOSE 99 mg/dL 06/07/2024 08:37 EGFR (CKD-EPI 2020) 85.0 06/07/2024 08:37 These readings are within normal limits. LIVER FUNCTION PANEL - These are tests for liver function: PROTEIN 7.1 g/dL 06/07/2024 08:38 ALBUMIN 4.1 g/dL 06/07/2024 08:38 TOTAL BILIRUBIN 0.4 mg/dL 06/07/2024 08:38 ALKALINE PHOSPHATASE 80 U/L 06/07/2024 08:38 AST/SGOT 18 U/L 06/07/2024 08:38 ALT/SGPT 11 U/L 06/07/2024 08:38 These readings are within normal limits. TSH - Thyroid-stimulating hormone (also known as TSH or thyrotropin) is a peptide hormone synthesized and secreted by thyrotrope cells in the anterior pituitary gland, which regulates the endocrine function of the thyroid gland. TSH TSH 15.172 H uIU/mL 06/07/2024 08:38 These results are abnormal. You have uncontrolled hypothyroidism , which is the likely culprit for your malaise and fatigue, as well as weight gain. pls make sure you take your levothyroxine on an empty stomach first thing in the morning.I ordered levothyroxine 175 mcg daily. let us re-check your TSH in 6 -8 weeks. PLAN Please continue your treatment as we discussed during your visit. If you have any questions please call your case assistant. I look forward to seeing you at your next clinic appointment. Thank you for choosing the [facility] for your healthcare. FUTURE APPOINTMENTS: 06/19/2024 13:00 -[facility] 06/27/2024 19:15 [id number] Sincerely, VERNA NUNES,VERNA TRAMMELL [facility] Jun 07, 2024 08:35 AM EMERGENCY DEPT DIS CHARGE NOTE: LOCAL TITLE: DISCHARGE INSTRUCTIONS EMERGENCY DEPT STL STANDARD TITLE: EMERGENCY DEPT DISCHARGE NOTE DATE OF NOTE: JUN 07, 2024@08:35:50 ENTRY DATE: JUN 07, 2024@08:35:50 AUTHOR: YOMI SEVILLAIGNER: URGENCY: STATUS: COMPLETED DISCHARGE INSTRUCTIONS IMPORTANT: We examined and treated you today on an emergency basis only. This was not a substitute for, or an effort to provide, complete medical care. In most cases, you must let your healthcare provider check you again. Tell your healthcare provider about any new or lasting problems. We cannot recognize and treat all injuries or illnesses in one Emergency Department visit. You were treated today by Matt, . YOU ARE THE MOST IMPORTANT FACTOR IN YOUR RECOVERY. Follow the provided instructions carefully. CONTACT INFORMATION: -Hospital Information: [facility] - [address] [place] [address] -CRISIS Line: If you are having thoughts of harming yourself or thoughts of suicide immediately call the MD Crisis line at [phone] -Nurse Line: If you have any questions regarding your health or symptoms please contact the nurse line at [phone] -General Help: Any questions or concerns, call MD Clinical Contact Center - [phone]. Ask to speak to a doctor Monday thru Monday 8a-4:30p VISIT NOTES: If you had special tests, such as EKG's or X-rays, we will review them again within 24 hours. We will call you if there are any new suggestions. CLINICAL IMPRESSION: 1 -malaise DISCHARGE INSTRUCTIONS AND PATIENT-DIRECTED FOLLOW-UP RECOMMENDATIONS: DIET: regular ACTIVITY: ad daniel NEW MEDS: None ADDITIONAL INSTRUCTIONS: 1) drink plenty fluids 2) you will be contacted if your COVID/flu swab is positive 3) please go to lab for blood draw as ordered by your primary care physician MEDICATION RECONCILIATION: CONTINUE ALL PRESCRIBED MEDICATIONS ASDIRECTED FOLLOW-UP WITH PRIMARY TIME STUDY STATISTICIAN/SPECIALIST: routine in 1-2 weeks ifnot improving, sooner if worse RETURN TO EMERGENCY: if any worries or concerns FOLLOW APPOINTMENT INFORMATION: It is important that you keep your scheduled appointments. If you have questions, or if you need to Make, Change or Cancel an Appointment or relay a message to your Primary Care or Specialty Care Provider please call [phone]. If you are not already established with a MD primary childcare aide, an administrative request has been placed to offer that to you. You will recieve a notification for follow-up to be connected with a health care provider. Future Appointments 06/19/2024 at 1:00pm [facility] 06/27/2024 at 7:15pm [facility] [id number] MEDICATION INFORMATION: Take your medicines as prescribed. If you do not understand any of your medicines, please ask questions. If you think you may not be able to curing pickling packer your medicine, please let us know so we can look at other options. -Your medication list includes any medications that were recently prescribed but not filled by the Pharmacy (PENDING Medicines). -Included are any known ACTIVE Medicines. Please review this list to make sure it is accurate, if this list does not match the current medications you are taking please follow-up with your Primary Care Team to have your Medication List reviewed. Pending Medications [none] Active Medications CYANOCOBALAMIN 1000MCG/ML INJ INJECT 1000MCG/1ML INTRAMUSCULARLY EVERY MONTH FOR VITAMIN B12 SUPPLEMENTATION DULOXETINE HCL 30MG EC CAP TAKE ONE CAPSULE BY MOUTH ONCE A DAY DO NOT ABRUPTLY DISCONTINUE MEDICATION. TO BE TAKEN ALONG WITH 60MG FOR TOTAL OF 90MG DAILY DULOXETINE HCL 60MG EC CAP TAKE ONE CAPSULE BY MOUTH ONCE A DAY DO NOT ABRUPTLY DISCONTINUE MEDICATION. TO BE TAKEN ALONG WITH 30MG FOR TOTAL OF 90MG DAILY LIDOCAINE 5% OINT APPLY SPARINGLY TO AFFECTED AREA(S) ONCE A DAY NEEDED FOR PAIN (EXTERNAL USE ONLY) (WASH HANDS THOROUGHLY AFTER USE) METFORMIN HCL 1000MG TAB TAKE ONE-HALF TABLET BY MOUTH TWICE A DAY WITH MEALS TAKE WITH FOOD. AVOID ALCOHOL. DISCONTINUE BEFORE GETTING XRAY DYE. PRAMIPEXOLE DIHYDROCHLORIDE 1.5MG TAB TAKE ONE TABLET BY MOUTH TWICE A DAY FOR RESTLESS LEG SYNDROME SYRINGE 3ML/NDL 23G 1.5IN USE 1 SYRINGE INTRAMUSCULARLY EVERY MONTH FOR CYANOCOBALAMIN ADMINISTRATION TIZANIDINE HCL 4MG TAB TAKE ONE TABLET BY MOUTH THREE TIMES A DAY NEEDED FOR SPASTICITY Medications Medications in the last 90 days ALPRAZOLAM 0.25MG TAB TAKE ONE TABLET BY MOUTH THREE TIMES A DAY NEEDED FOR ANXIETY This Information Is About Your Illness and Diagnosis UNEXPLAINED WEAKNESS Unexplained weakness is a perceived loss of muscle strength and general tiredness that occurs for no apparent reason. Weakness is a symptom of many different medical conditions. What causes unexplained weakness? Some causes of general weakness and tiredness include: -dehydration (too little water in the body) -side effects of certain medicines -vitamin or nutritional deficiencies -infections -low thyroid (hypothyroidism) -rheumatoid diseases, such as lupus and rheumatoid arthritis -low red blood cell count (anemia) -neurologic conditions, such as stroke, inflammation of certain nerves, multiple sclerosis -sedentary lifestyle (very little, if any, exercise) -depression -chronic fatigue syndrome How does the health care provider know I have weakness? Signs and symptoms: -loss of muscle strength (this may be generalized or a specific group of muscles) -general fatigue or tiredness -trouble sleeping -slow or delayed movement -lack of energy -trouble finishing a task due to muscle or generalized fatigue -physical discomfort, such as muscle aches or shakiness What tests may be done? -a physical exam -by talking to you about your weakness, asking how long you've felt it, if anything in particular caused the weakness to get worse, if you have had any other symptoms or problems, if anyone else in your family has had similar problems -depending on your particular symptoms, your health care provider may order some of the following tests: -blood tests -medical scan of your brain, spine, chest, or other areas -muscle and nerve tests -muscle biopsy -electroencephalogram (EEG) -lumbar puncture, or spinal tap, to check the fluid around your spinal cord for infection or other problems How will my weakness be treated? Specific treatment will depend on what your health care provider finds is causing your weakness. Your health care provider may recommend ways to alter or improve your lifestyle. Please follow these instructions: -Keep all follow-up appointments with your health care provider. -Take all medicines exactly as prescribed. -Allow time for rest periods throughout your day. -Ask someone to help you with household tasks, such as house cleaning and child development professor while you are feeling weak. -Pace your activities. -Keep your sleeping hours regular. -Eat healthy foods with plenty of protein, and fresh fruits and vegetables. Drink plenty of water. Contact your health care provider immediately if: -you have any trouble breathing. -you have chest pain, arm numbness or weakness. -you have sudden changes in your speech or vision. -you have numbness or loss of strength on one side of your body. -someone has trouble awakening you. Contact your health care provider as soon as possible if you: -have increased weakness or loss of strength of the muscles. -develop a fever. -develop new pain. -have any new or bothersome symptoms. Contact your health care provider as soon as possible if you have: -Concerns for an emergency medical condition -Uncontrolled pain or other life-threatening symptoms -Any worries or concerns -Other: END OF INSTRUCTIONS /es/ YOMI SEVILLA MD STAFF PHYSICIAN Signed: 06/07/2024 08:35 YOMI SEVILLA [facility] Jun 07, 2024 08:21 AM PHYSICIAN EMERGENC Y DEPT NOTE: LOCAL TITLE: EMERGENCY DEPARTMENT STL STANDARD TITLE: PHYSICIAN EMERGENCY DEPT NOTE DATE OF NOTE: JUN 07, 2024@08:21 ENTRY DATE: JUN 07, 2024@08:21:08 AUTHOR: YOMI SEVILLA EXP COSIGNER: URGENCY: STATUS: COMPLETED TRIAGE CHIEF COMPLAINT: Malaise and fatigue, right tonsil soreness HPI: Patient is a 48-year-old female with a history of migraines, hypothyroidism, IBS, fibromyalgia, chronic pelvic pain, gastric bypass, COPD, presents with complaint of malaise and fatigue for the past 3 weeks. She reports that her primary care physician ordered labs but she has not yet had a chance to get them done. She reports that she had diarrhea multiple x 1 day earlier this week but that resolved. She notes some nausea but no vomiting, tolerating p.o. She reports that yesterday her right tonsil felt somewhat swollen and she poked it with a Q-tip and it started bleeding. Since then it has been slightly sore on the right side. She notes a mild cough which just developed Her primary concern is that he continues to feel fatigued and weak and she has a lot to get done today. REVIEW OF SYSTEMS: See HPI for further details. All 10 systems reviewed and otherwise negative unless otherwise detailed herein. PAST MEDICAL HISTORY: 1) Family history of ischemic heart disease (SNOMED CT 415672982) 2) Migraine (SNOMED CT [id number]) 3) Vitamin D deficiency 4) Hypothyroidism 5) Low back pain 6) Depression 7) Mastodynia 8) Lumbar radiculopathy 9) Irritable bowel syndrome characterized by alternating bowel habit 10) Fibromyalgia 11) Chronic pain in female pelvis 12) Kidney stone 13) Insomnia 14) Compartment syndrome 15) Obesity (SCT [id number]) 16) Arthritis 17) Intermittent palpitations 18) Chronic [...] 30MG FOR TOTAL OF 90MG DAILY 4) LIDOCAINE 5% OINT APPLY SPARINGLY TO AFFECTED AREA(S) ACTIVE ONCE A DAY NEEDED FOR PAIN (EXTERNAL USE ONLY) (WASH HANDS THOROUGHLY AFTER USE) 5) METFORMIN HCL 1000MG TAB TAKE ONE-HALF TABLET BY ACTIVE MOUTH TWICE A DAY WITH MEALS TAKE WITH FOOD. AVOID ALCOHOL. DISCONTINUE BEFORE GETTING XRAY DYE. 6) PRAMIPEXOLE DIHYDROCHLORIDE 1.5MG TAB TAKE ONE TABLET ACTIVE BY MOUTH TWICE A DAY FOR RESTLESS LEG SYNDROME 7) SYRINGE 3ML/NDL 23G 1.5IN USE 1 SYRINGE ACTIVE INTRAMUSCULARLY EVERY MONTH FOR CYANOCOBALAMIN ADMINISTRATION 8) TIZANIDINE HCL 4MG TAB TAKE ONE TABLET BY MOUTH THREE ACTIVE TIMES A DAY NEEDED FOR SPASTICITY 9) TRAZODONE HCL 100MG TAB TAKE ONE TABLET BY MOUTH AT ACTIVE (S) BEDTIME NEEDED FOR INSOMNIA No medications found.. SURGICAL HISTORY: not pertinent FAMILY HISTORY: not pertinent SOCIAL HISTORY: Social History Main Topics: Smoking status: No data available for: Current Tobacco User Alcohol Use: not endorsed Negative mg/dL (12/31/23 21:27) Illicit Drug Use: not endorsed Sexual Activity: Other Topics of Concern: Child bearing age: N/A LMP: N/A possible: N/A ALLERGIES: Review of patient's allergies indicates: VITAMIN B12 1000MCG, PANTOPRAZOLE, AMOXICILLIN, FLONASE NASAL SOLUTION PREGABALIN, GABAPENTIN, METHOCARBAMOL PHYSICAL EXAM: VITAL SIGNS: 143/96 (06/07/2024 07:53) 85 (06/07/2024 07:53) 98% (04/18/2024 08:58) 98.5 F [36.9 C] (06/07/2024 07:53) 18 (06/07/2024 07:53) Measurement DT WEIGHT LB(KG)[BMI] 01/24/2024 13:56 210.3(95.39)[39*] 11/24/2023 15:33 224(101.60)[41*] 11/10/2023 00:05 231.49(105.00)[42*] Measurement DT PAIN 06/07/2024 07:53 7 CONSTITUTIONAL: No acute distress, Non-toxic appearance, pleasant and conversant, appears clinically well on exam HENT: airway patent, normal voice Tonsils appear normal bilaterally, no bleeding or exudate. There is no asymmetry. Uvula is midline. Voice is normal. Mucous membranes are moist EYES: Conj pink, sclera clear NECK: Grossly normal range of motion. Mild bilateral anterior cervical adenopathy PULMONARY/CHEST: Normal effort, CTA bilaterally, no wheezing or rales BACK: : RECTAL: EXTREMITIES: Grossly Normal range of motion NEUROLOGIC: Alert & oriented/reactive, Grossly normal motor function, Normal gait observed, no ataxia, No focal deficits appreciated on cursory screening exam SKIN: Warm, Dry, No erythema, No appreciable significant rash LABS: RADIOLOGY: ECG IMPRESSION: ED COURSE & MEDICAL DECISION MAKING: Clinically well-appearing, no overt evidence of dehydration vital signs are normal, mucous membranes are moist. Symptoms are somewhat generalized and most are ongoing for several weeks. Diarrhea is resolved, tolerating p.o. Will swab for COVID Recommend that she go to the lab and get labs drawn that were ordered by her primary physician as planned. Nursing notes, medications, vital signs, allergies and pertinent labs & imaging studies reviewed (see chart for details) with lab results reviewed with patient and family/caregivers at bedside and radiology results reviewed with patient and any family/caregivers at bedside. Stable, alert, nontoxic, nonfocal with clinically apparent malaise and fatigue [employer] SERVICE/TIME: MEDICATIONS GIVEN IN ED: [ ] YES [ x ] NO DIFFERENTIAL DIAGNOSES CONSIDERED: Tonsillitis, pharyngitis, viral syndrome, [employer], fatigue, endocrine pathology, viral syndrome, other DECISION to ADMIT / DISCHARGE TIME: 0830 DISPOSITION CONDITION:[X] Improved [ ] Unchanged [ ] Deteriorated CLINICAL IMPRESSION: 1 -malaise DISCHARGE INSTRUCTIONS AND PATIENT-DIRECTED FOLLOW-UP RECOMMENDATIONS: DIET: regular ACTIVITY: ad daniel NEW MEDS: None ADDITIONAL INSTRUCTIONS: 1) drink plenty fluids 2) you will be contacted if your COVID/flu swab is positive 3) please go to lab for blood draw as ordered by your primary care physician MEDICATION RECONCILIATION: CONTINUE ALL PRESCRIBED MEDICATIONS DIRECTED FOLLOW-UP WITH PRIMARY TIME STUDY STATISTICIAN/SPECIALIST: routine in 1-2 weeks if not improving, sooner if worse RETURN TO EMERGENCY: if any worries or concerns ADDITIONAL SIGNATURE PCP: [X] YES [ ] NO [ ] not [...] 30MG FOR TOTAL OF 90MG DAILY 4) LIDOCAINE 5% OINT APPLY SPARINGLY TO AFFECTED AREA(S) ACTIVE ONCE A DAY NEEDED FOR PAIN (EXTERNAL USE ONLY) (WASH HANDS THOROUGHLY AFTER USE) 5) METFORMIN HCL 1000MG TAB TAKE ONE-HALF TABLET BY ACTIVE MOUTH TWICE A DAY WITH MEALS TAKE WITH FOOD. AVOID ALCOHOL. DISCONTINUE BEFORE GETTING XRAY DYE. 6) PRAMIPEXOLE DIHYDROCHLORIDE 1.5MG TAB TAKE ONE TABLET ACTIVE BY MOUTH TWICE A DAY FOR RESTLESS LEG SYNDROME 7) SYRINGE 3ML/NDL 23G 1.5IN USE 1 SYRINGE ACTIVE INTRAMUSCULARLY EVERY MONTH FOR CYANOCOBALAMIN ADMINISTRATION 8) TIZANIDINE HCL 4MG TAB TAKE ONE TABLET BY MOUTH THREE ACTIVE TIMES A DAY NEEDED FOR SPASTICITY 9) TRAZODONE HCL 100MG TAB TAKE ONE TABLET BY MOUTH AT ACTIVE (S) BEDTIME NEEDED FOR INSOMNIA /es/ YOMI SEVILLA MD STAFF PHYSICIAN Signed: 06/07/2024 08:41 Receipt Acknowledged By: 06/10/2024 16:43 /es/ YOMI SPRAGUE MD [facility] Jun 07, 2024 07:51 AM EMERGENCY DEPT TRI AGE NOTE: LOCAL TITLE: EMERGENCY DEPARTMENT TRIAGE NOTE STANDARD TITLE: EMERGENCY DEPT TRIAGE NOTE DATE OF NOTE: JUN 07, 2024@07:51 ENTRY DATE: JUN 07, 2024@07:51:29 AUTHOR: VAN VELIZ COSIGNER: URGENCY: STATUS: COMPLETED Emergency Department/Urgent Care Center Triage Patient age:48 Sex: FEMALE On arrival patient was: AMBULATORY Patient phone number: Allergies: VITAMIN B12 1000MCG, PANTOPRAZOLE, AMOXICILLIN, FLONASE NASAL SOLUTION PREGABALIN, GABAPENTIN, METHOCARBAMOL Subjective/Chief Complaint: Sore/swollen tonis/malaise Objective: Pt reports feeling malaise for the last week with a bout of diarrhea and feeling dehydrated. Yesterday her right tonsil became painful/swollen and bled after she poked it with a qtip. Denies N/V. Reports chills but no fever. AOX4. Speaking in complete sentences. No signs of distress. Both tonsils are slightly swollen The patient is not a fall risk. BP: P: R: WT: T: HT: Temperature 98.5 F (36.9 C) Pulse 85 Respirations 18 Blood Pressure 143/96 Pain scale recorded: 7 Pulse Oximetry 99 Room Air Sepsis Screening Evaluation Emergency Severity Index (OUMAR) level Level 4 Current Medications: Active Outpatient Medications (including Supplies): Active Outpatient [...] 30MG FOR TOTAL OF 90MG DAILY 4) LIDOCAINE 5% OINT APPLY SPARINGLY TO AFFECTED AREA(S) ACTIVE ONCE A DAY NEEDED FOR PAIN (EXTERNAL USE ONLY) (WASH HANDS THOROUGHLY AFTER USE) 5) METFORMIN HCL 1000MG TAB TAKE ONE-HALF TABLET BY ACTIVE MOUTH TWICE A DAY WITH MEALS TAKE WITH FOOD. AVOID ALCOHOL. DISCONTINUE BEFORE GETTING XRAY DYE. 6) PRAMIPEXOLE DIHYDROCHLORIDE 1.5MG TAB TAKE ONE TABLET ACTIVE BY MOUTH TWICE A DAY FOR RESTLESS LEG SYNDROME 7) SYRINGE 3ML/NDL 23G 1.5IN USE 1 SYRINGE ACTIVE INTRAMUSCULARLY EVERY MONTH FOR CYANOCOBALAMIN ADMINISTRATION 8) TIZANIDINE HCL 4MG TAB TAKE ONE TABLET BY MOUTH THREE ACTIVE TIMES A DAY NEEDED FOR SPASTICITY 9) TRAZODONE HCL 100MG TAB TAKE ONE TABLET BY MOUTH AT ACTIVE (S) BEDTIME NEEDED FOR INSOMNIA Current Problems: 1) Family history of ischemic heart disease (SNOMED CT 712137375) 2) Migraine (SNOMED CT 51780053) 3) Vitamin D deficiency 4) Hypothyroidism 5) Low back pain 6) Depression 7) Mastodynia 8) Lumbar radiculopathy 9) Irritable bowel syndrome characterized by alternating bowel habit 10) Fibromyalgia 11) Chronic pain in female pelvis 12) Kidney stone 13) Insomnia 14) Compartment syndrome 15) Obesity ([facility] [id number]) 16) Arthritis 17) Intermittent palpitations 18) Chronic obstructive lung disease 19) Obstructive sleep apnea of adult 20) Poor pelvic muscle tone 21) Cervicalgia 22) Bacterial cellulitis 23) Overactive bladder Suicide Screen: [place] Suicide Severity Rating Scale (C-SSRS) screener 1. Over the past month, have you wished you were or wished you could go to sleep and not wake up? No 2. Over the past month, have you had any actual thoughts of killing yourself? No 3. Over the past month, have you been thinking about how you might do this? Response not required due to responses to other questions. 4. Over the past month, have you had these thoughts and had some intention of acting on them? Response not required due to responses to other questions. 5. Over the past month, have you started to work out or worked out the details of how to kill yourself? Response not required due to responses to other questions. 6. If yes, at any time in the past month did you intend to carry out this plan? Response not required due to responses to other questions. 7. In your lifetime, have you ever done anything, started to do anything, or prepared to do anything to end your life (for example, collected pills, obtained a gun, gave away valuables, went to the roof but didn't jump)? No 8. If YES, was this within the past 3 months? Response not required due to responses to other questions. /tamera/ VAN VELIZ REGISTERED NURSE Signed: 06/07/2024 07:55 VAN VELIZ [facility]
--- OUTSIDE RECORDS SUMMARY | 2025-03-22 21:58 | XMS_ITS | Encounter Summary ---
Author Name [facility] [place] [facility] [place] Address [address] [place] [address] Care Team Providers Care Television Servicer Name Role Phone VERNA BARRERA Primary Care [...] AID (WNR) Oct 23, 2016 MEDICAI D [id number] GERDA NUNES PATIENT Selected Encounter This section includes the information on record at CT for the Encounter. Date/Time Encounter Type Encounter Description Reason Provider Source Nov 14, 2024 09:30 AM OFFICE O/P EST MOD 30 MIN PRIMARY CARE/MEDICINE ICD-10-CM M13.0 Polyarthritis, unspecified BARRERA,VERNA A IHE Encounter Template Text not used by CT Assessments - Encounter Diagnoses This section includes the primary and secondary diagnoses documented for the Encounter. Date/Time Primary/Secondary Diagnosis Diagnosis Name Provider Source Nov 14, 2024 11:14 PM PRIMARY Polyarthritis, unspecified BARRERA,VERNA A [facility] Plan of Treatment: Future Appointments (+ 6 months) and Future Tests (+/- 45 days) The Plan of Treatment section includes future care activities for the [facility] This section includes future appointments and future orders which are active, pending or scheduled. Future Appointments This section includes appointments that were scheduled to occur 6 months from the date of the Encounter, up to a maximum of 20 appointments. The data comes from all [facility]. Appointment Date/Time Appointment Type Appointme nt Facility Name Nov 26, 2024 12:30 PM AMBULATORY - SURGERY [facility] Dec 17, 2024 06:28 PM AMBULATORY - MEDICINE [facility] Jan 02, 2025 01:00 PM AMBULATORY - PSYCHIATRY [facility] Jan 07, 2025 11:30 AM AMBULATORY - MEDICINE [facility] Apr 18, 2025 02:30 PM AMBULATORY PSYCHIATRY [facility] Active, Pending, and Scheduled Orders This section includes a listing of several types of active, pending, and scheduled orders, including clinic medications orders, diagnostic test orders, procedure orders and consult orders; where thestart date of the order is 45 days before the date of the Encounter or 45 days after the date of the Encounter. The data comes from all [facility]. Test Date/Time Test Type Test Details Facility Name Nov 07, 2024 09:39 AM Laboratory - Microbiology Order BLOOD CULT (SET 1) B D BLD. BOTTLE BLOOD [facility] Nov 07, 2024 09:39 AM Laboratory - Microbiology Order BLOOD CULT (SET 2) B D BLD. BOTTLE (SET 2) BLOOD [facility] Lab Results: +/- 30 days of the encounter This section includes the Chemistry and Hematology Lab Results on record with CT for the patient. Radiology Reports and Pathology Reports are provided separately, in subsequent sections. Lab Results This section contains the Chemistry/Hematology Results that were resulted 30 days before or 30 daysafter the date of the Encounter. Date/Time Source Result Type Result - Unit Interpretation Reference Range Specimen Type Comment Nov 08, 2024 05:42 AM [facility] RENAL PANEL PLASMA Specimen Type: PLASMA Comment: No hemolysis noted. Ordering Provider: SIMI WALTERS Report Released Date/Time: Nov 07, 2024 11:32 PM Reporting Lab: [address] [address] Performing Lab: [address] [address] CREATININE 0.79 mg/dL 0.6-1.1 UREA NITROGEN 21.2 mg/dL 9.0-25.0 GLUCOSE 87 mg/dL 72-99 SODIUM 142 meq/L 136-145 POTASSIUM 3.9 meq/L 3.5-5 CHLORIDE 106 meq/L 98-107 CARBON DIOXIDE 27 meq/L 22-31 CALCIUM 9.4 mg/dL 8.4-10.4 PHOSPHOROUS 4.9 mg/dL H 2.3-4.7 ALBUMIN 3.6 g/dL 3.4-5 EGFR (CKD-EPI 2020) 92.2 >60 Nov 08, 2024 05:42 AM [facility] MAGNESIUM PLASMA Specimen Type: PLASM A Comment: No hemolysis noted. Ordering Provider: SIMI WALTERS Report Released Date/Time: Nov 07, 2024 11:32 PM Reporting Lab: [address] [address] Performing Lab: [address] [address] MAGNESIUM 2.0 mg/dL 1.6-2.6 Nov 08, 2024 05:42 AM [facility] CBC BLOOD Specimen Type: BLOOD No comment entered. Ordering Provider: SIMI WALTERS Report Released Date/Time: Nov 07, 2024 11:32 PM Reporting Lab: [address] [address] Performing Lab: [address] [address] WBC 6.3 10*3/uL 3.6-11.2 RBC 4.40 10*6/uL [...] 0.00-0. 20 Nov 08, 2024 05:00 AM [facility] MRSA SURVL NARES DNA NARES [...] Nov 07, 2024 11:32 PM Reporting Lab: [facility] [address] [facility] [address] Performing Lab: [facility] [address] [facility] [address] MRSA SURVL NARES DNA Negative Negative Nov 07, 2024 12:35 PM [facility] URINE DRUG SCREEN (STL) URINE Specimen Type: URINE Comment: The cut-off value for Fentanyl was laboratory developed and its performance characteristics confirmed by the [facility] laboratory thru method comparison with reference laboratory and medication chart review. The laboratory is regulated under CLIA as qualified to perform high-complexity testing. Fentanyl is used for clinical purposes in conjunction with other laboratory tests. Ordering Provider: SUKHDEEP HENRY Report Released Date/Time: Nov 07, 2024 09:39 AM Reporting Lab: [address] [address] Performing Lab: [address] [address] ETHANOL <10 mg/dL 0-9 AMPHET/METHAMPHETAMINE Negative ng/mL COCAINE METABOLITES Negative ng/mL BENZODIAZEPINES (STL) POSITIVE ng/mL CANNABINOIDS Negative ng/mL METHADONE Negative ng/mL OPIATES Negative ng/mL CREATININE URINE/OTHERS 107.3 mg/dL 47-1 10 OXYCODONE (RQWXS-TWA-CW) Negative ng/mL BUPRENORPHINE (STL-PB-MA) Negative ng/mL FENTANYL (STL) Negative ng/mL Nov 07, 2024 12:35 PM [facility] URINALYSIS (STL-PB) URINE Specimen Type: URIN E No comment entered. Ordering Provider: SUKHDEEP HENRY Report Released Date/Time: Nov 07, 2024 09:40 AM Reporting Lab: [address] [address] Performing Lab: [address] [address] URINE COLOR Yellow Yellow U.BILIRUBIN Negative mg/dL [...] GRAVITY 1.023 Nov 07, 2024 11:22 AM [facility] SEROTONIN SERUM Specimen Type: SERUM Comment: This test was developed and its analytical performance characteristics have been determined by [facility]. It has not been cleared or approved by FDA. This assay has been validated pursuant to the CLIA regulations and is used for clinical purposes. Test performed by [facility] [place] [id number] Coating Machine Operator: Lois Valenzuela MD,PHD,JESSICA Test Reported by [facility], [address] [place] [address] Remi Dos Santos M.D., Ph.D., Director of Laboratories , CLIA [id number] This test was developed and its analytical performance characteristics have been determined by [facility]. It has not been cleared or approved by FDA. This assay has been validated pursuant to the CLIA regulations and is used for clinical purposes. Test performed by [facility] [place] [id number] Coating Machine Operator: Lois Valenzuela MD,PHD,JESSICA Test Reported by [facility], [address] [place] [address] Remi Dos Santos M.D., Ph.D., Director of Laboratories , CLIA [id number] Ordering Provider: SUKHDEEP HENRY Report Released Date/Time: Nov 07, 2024 10:04 AM Reporting Lab: [facility] [address] [place] [phone] Performing Lab: [facility] [address] [facility] SEROTONIN 16 ng/mL L 56-244 Nov 07, 2024 11:22 AM [facility] TSH (MA-PB) SERUM Specimen Type: SERUM No comment entered. Ordering Provider: SUKHDEEP HENRY Report Released Date/Time: Nov 07, 2024 09:56 AM Reporting Lab: [facility] [address] [place] [phone] Performing Lab: [address] [address] TSH 3.321 u[IU]/mL 0.47-5 Nov 07, 2024 09:57 AM [facility] COMPREHENSIVE METABOLIC PANEL PLASMA Specimen Type: PLASMA Comment: No hemolysis noted. Ordering Provider: MANNY GORDON Report Released Date/Time: Nov 07, 2024 09:15 AM Reporting Lab: [address] [address] Performing Lab: [address] [address] CREATININE 0.84 mg/dL 0.6-1.1 UREA NITROGEN 20.2 [...] 85.7 >60 Nov 07, 2024 09:57 AM [facility] CBC BLOOD Specimen Type: BLOOD No comment entered. Ordering Provider: MANNY GORDON Report Released Date/Time: Nov 07, 2024 09:14 AM Reporting Lab: [address] [address] Performing Lab: [address] [address] WBC 10.4 10*3/uL 3.6-11.2 RBC 4.99 10*6/uL [...] 0.00-0. 20 Nov 07, 2024 09:49 AM [facility] LIPASE PLASMA Specimen Type: PLASM A No comment entered. Ordering Provider: SUKHDEEP HENRY Report Released Date/Time: Nov 07, 2024 09:39 AM Reporting Lab: [address] [address] Performing Lab: [address] [address] LIPASE 35 U/L 8-78 Nov 07, 2024 09:49 AM [facility] ETHANOL SERUM/PLASMA (STL) PLASMA Specimen Typ e: PLASMA No comment entered. Ordering Provider: SUKHDEEP HENRY Report Released Date/Time: Nov 07, 2024 09:39 AM Reporting Lab: [address] [address] Performing Lab: [address] [address] ETHANOL SERUM/PLASMA (STL) <10 mg/dL 0-9 Nov 07, 2024 09:49 AM [facility] RESPIRATORY PCR PANEL NASOPHARYNX Specimen Type: NASOPHARYNX Comment: The FilmArray RP Panel combines nested multiplex PCR and [...] the clinician evaluating the patient. Chasity CHOI, (397) Ordering Provider: SUKHDEEP HENRY Report Released Date/Time: Nov 07, 2024 09:39 AM Reporting Lab: [facility] [address] [facility] [address] Performing Lab: [address] [address] *Adenovirus (BF) Not Detected Not Detect ed [...] Dete cted Nov 07, 2024 09:49 AM [facility] CPK PLASMA Specimen Type: PLASM A No comment entered. Ordering Provider: SUKHDEEP HENRY Report Released Date/Time: Nov 07, 2024 09:48 AM Reporting Lab: [facility] [address] [facility] [address] Performing Lab: [facility] [address] [place] [phone] CPK 61 U/L 29-168 Oct 22, 2024 12:03 PM [facility] FERRITIN SERUM Specimen Type: SERUM No comment entered. Ordering Provider: EZ TAPIA Report Released Date/Time: Oct 22, 2024 11:52 AM Reporting Lab: [facility] [address] [facility] [address] Performing Lab: [facility] [address] [facility] [address] FERRITIN 173.22 ng/mL 10-204 Oct 22, 2024 12:03 PM [facility] B12 SERUM Specimen Type: SERUM No comment entered. Ordering Provider: EZ TAPIA Report Released Date/Time: Oct 22, 2024 11:54 AM Reporting Lab: [facility] [address] [place] [address] Performing Lab: [facility] [address] [place] [address] B12 440 pg/mL 213-816 Oct 22, 2024 12:03 PM [facility] IRON/TIBC PROFILE SERUM Specimen Type: SERUM No comment entered. Ordering Provider: EZ TAPIA Report Released Date/Time: Oct 22, 2024 11:52 AM Reporting Lab: [facility] [address] [place] [address] Performing Lab: [address] [address] TIBC 324 ug/dL 250-450 TRANSFERRIN 259 mg/dL 173-360 IRON SATURATION 45 20-50 IRON 146 ug/dL 50-170 Oct 22, 2024 12:03 PM [facility] CBC BLOOD Specimen Type: BLOOD No comment entered. Ordering Provider: EZ TAPIA Report Released Date/Time: Oct 22, 2024 11:52 AM Reporting Lab: [facility] [address] [place] [address] Performing Lab: [address] [address] WBC 6.5 10*3/uL 3.6-11.2 RBC 4.69 10*6/uL [...] 0.60 BASOPHILS, ABSOLUTE 0.05 10*3/uL 0.00-0. 20 Vital Signs: All taken on the encounter date This section contains inpatient and outpatient Vital Signs collected on the date of the Encounter. Date/Time Temperature Pulse Blood Pressure Respiratory Rate SP02 Pain Height Weight Body Mass Index Source Nov 14, 2024 09:30 AM 97.8 86 162/78 18 [address] [facility] Social History: Smoking Status (Most current) and Tobacco Use (All prior to encounter date) This section includes the most current, and the historical, smoking and tobacco- related health factors from the CT facility where the Encounter took place. Current Smoking Status This section includes the most current smoking, or tobacco-related health factor, from the CT facility where the Encounter took place. Date/Time Current Smoking Status Comment Facil ity Nov 24, 2023 03:30 PM VA-TOBACCO NEVER USED [facility] Tobacco Use History This section includes a history of the smoking, or tobacco-related health factors, that were collected on or before the date of the Encounter. The data comes from the CT facility where the Encounter took place. Date/Time Smoking Status/Tobacco Use Comment F acjamie Jun 07, 2022 03:00 PM VA-TOBACCO NEVER USED [facility] Oct 05, 2020 03:00 PM VA-TOBACCO NEVER USED [facility] Sep 10, 2019 12:54 PM VA-TOBACCO NEVER [facility]ED [facility] Dec 15, 2017 01:13 PM TOBACCO REFUSED SCREEN V15 [facility] Dec 13, 2017 03:11 PM TOBACCO REFUSED SCREEN V15 [facility] Aug 17, 2017 02:30 PM LIFETIME NON-USER OF TOBACCO [facility] Jul 20, 2017 02:32 PM LIFETIME NON-USER OF TOBACCO [facility] Jun 21, 2017 10:50 AM LIFETIME NON-USER OF TOBACCO [facility] Aug 26, 2016 01:58 PM LIFETIME NON-USER OF TOBACCO [facility] Sep 22, 2015 01:35 PM LIFETIME NON-USER OF TOBACCO [facility] Oct 15, 2014 08:56 AM LIFETIME NON-USER OF TOBACCO [facility] Aug 30, 2013 02:53 PM LIFETIME NON-USER OF TOBACCO [facility] Radiology Reports: +/- 30 days of the [...] the Encounter. The data comes from all CT treatment facilities. Date/Time Radiology Report Provider Source Nov 26, 2024 01:13 PM HIP, UNILAT, 2-3 V IEWS LEFT W OR W/O PELVIS: MANJUGERDA DEC [id number] -1975 F Exm Date: NOV 26, 2024@13:13 Req Phys: GALDINO FONTANA Pat Loc: [facility]-ORTHO 1 (Req'g Loc) Img Loc: [facility]-MAIN RADIOLOGY SUITE Service: Unknown Screen: Patient answered no [facility], VIS [address] [place] [address] (Case [id number] COMPLETE) HIP, UNILAT, 2-3 VIEWS LEFT W OR (RAD Detailed) CPT:45015 Proc Modifiers : LEFT, AP Pelvis, Frog Reason for Study: Left hip pain Clinical History: Report Status: Verified Date Reported: NOV 28, 2024 Date Verified: NOV 28, 2024 Deicer Inspector [employer] E-Sig:/ES/ROSALINA CHANG Report: EXAMINATION: HIP, UNILAT, 2-3 [...] osteoarthritis. Primary Interpreting Staff: ROSALINA CHANG, RADIOLOGIST (Deicer Inspector [employer]) /ROSALINA CROCKER [facility] Nov 07, 2024 04:[address] HEAD W/O CONT: GERDA NUNES [facility] [id number] -1975 F Exm Date: NOV 07, 2024@16:16 Req Phys: SUKHDEEP HENRY Loc: [facility]-EMERGENCY DEPT 2ND SHIFT (R Img Loc: B[facility]-CT IMAGING BIN Service: Unknown Screen: Patient answered no [facility], [facility] [address] [place] [address] (Case [id number] COMPLETE) CT HEAD W/O CONT (CT Detailed) CPT:93687 Reason for Study: headache Clinical History: Responsible [...] 07, 2024 Date Verified: NOV 07, 2024 Deicer Inspector Electric E-Sig:/ES/Geneva Egan MD Report: CT HEAD W/O CONT CASE #: [id number] DATE:11/07/2024 4:46 PM CLINICAL HISTORY:headache COMPARISON: 12/31/2023, 08/23/2021 TECHNIQUE: CT HEAD W/O CONT [...] or suspicious interval change. Primary Interpreting Staff: Geenva Egan MD, Radiologist (Deicer Inspector [employer]) /GENEVA [facility] Nov 07, 2024 09:44 AM CHEST PORTABLE: GERDA NUNES [facility] [id number] -1975 F Exm Date: NOV 07, 2024@09:44 Req Phys: SUKHDEEP HENRY Loc: -EMERGENCY DEPT 2ND SHIFT (R Img Loc: -MAIN RADIOLOGY SUITE Service: Unknown Screen: Patient answered no [facility], [facility] [address] [place] [address] (Case [id number] COMPLETE) CHEST PORTABLE (RAD Detailed) CPT:55282 Proc Modifiers : Portable Reason for Study: , cough Clinical History: Cough and fever Report Status: Verified Date Reported: NOV 07, 2024 Date Verified: NOV 07, 2024 Deicer Inspector Electric E-Sig:/ES/SYED MCGINNIS MD Report: Case #[id number]. Chest [...] SYED MCGINNIS MD, Staff Physician - Radiologist (Deicer Inspector Electric) /SYED [facility] Pathology Reports: +/- 30 days of [...] the Encounter. The data comes from all CT treatment facilities. Date/Time Pathology Report Provider Source Nov 07, 2024 12:35 PM LR MICROBIOLOGY RE PORT: Accession [UID]: [id number] [[id number]] Received: Nov 07, 2024@15:52 Collection sample: URINE,CLEAN CATCH Collection date: Nov 07, 2024 12:35 Site/Specimen: URINE Provider: SUKHDEEP HENRY Test(s) ordered: C&S URINE..................... completed: Nov 08, 2024 22:06 * BACTERIOLOGY FINAL REPORT => Nov 08, 2024 22:08 TECH CODE: [id number] Bacteriology Remark(s): CULTURE SHOWS <10,000 CFU/ML NATURE OF GROWTH SUGGESTS CONTAMINATION OR DELAY IN TRANSPORT. There will be no work up. NICHO 11/08/24 =--=--=--=--=--=--=--=--=--= --=--=--=--=--=--=--=--=--=- -=--=--=--=--=--=--=-- Performing Laboratory: Bacteriology Report Performed By: [address] CLME# [id number] [address] [address] LENIN DILLARD [facility] Encounter Notes: All associated encounter notes This section contains the clinical notes associated to the Encounter. Date/Time Encounter Note(s) Provider Source Dec 04, 2024 05:28 PM ADDENDUM: LOCAL TITLE: Addendum STANDARD TITLE: ADDENDUM DATE OF NOTE: DEC 04, 2024@17:28:42 ENTRY DATE: DEC 04, 2024@17:28:43 AUTHOR: GEOFF AL EXP COSIGNER: URGENCY: STATUS: COMPLETED Pt previously seen for mid/low back pain; seen by Ortho 11/27/24 with no further surgical interventions recommended or concerns for acute compartment syndrome. 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 PCP may consider referral to [facility] IPR program-this is a 10wk outpt interdisciplinary program that can help focus on self management of chronic pain, learn to modify activities with pacing/grouping vs. alternative activities to trial etc that may be of sig. benefit for this pt. If pt is not able or willing to trial, can consider a Pain Pharm eConsult for assistance with possible medication trials, PM&R referral for eval/education, [facility] or placing a new pain management consult-due to current in-house wait time, community care may be offered if is eligible and has completed stepped/active care trials within the last 12 months for L.LE pain without benefit. /tamera/ GEOFF AL APN-JUAN OROZCO Signed: 12/04/2024 17:36 Receipt Acknowledged By: 12/19/2024 11:23 /tamera/ VERNA BARRERA MD --- Original Document --- 11/14/24 PRIMARY CARE PROVIDER ESTABLISHED VISIT STL: ESTABLISHED PATIENT [id number]: REASON FOR VISIT/CHIEF COMPLAINT: post hosp f.u HPI:GERDA Amado is a 49 Y.O FEMALE with PMHx of hypothyroidism, migraine headaches, obesity, obstructive sleep apnea, status post gastric bypass complicated by esophageal stenosis with dilatation, compartment syndrome left leg with decompression surgery and resultant chronic pain to left lower extremity on duloxetine, lumbar radiculopathy affecting left lower extremity, fibromyalgia who presented to [facility] on 11/07/24 with symptoms of nausea, headache, tremors and weakness following recent changes to medications. Recently increased on dose of cymbalta three months prior to admission and started tramadol 50mg 4 times daily with onset of symptoms within 24 hours. She presented to the ED for these symptoms and had unrevealing vitals and labs. Her symptoms improved with cessation of suspected medications for possible serotonin syndrome as well and supportive care. Stable for discharge on 11/08/24. pt would like to be evaluated for poss CRPS-- advised to call pain mnt for appointment She reports recurrent itchy rash on her skin folds on the lower abdominal area. had significant weight loss in the past yr after bariatric surgery. SOURCE(S) OF HISTORY: Patient PAST MEDICAL HISTORY: 1) Family history of ischemic heart disease (SNOMED CT 908103509) 2) Migraine (SNOMED CT 60747661) 3) Vitamin D deficiency 4) Hypothyroidism 5) Low back pain 6) Depression 7) Mastodynia 8) Lumbar radiculopathy 9) Irritable bowel syndrome characterized by alternating bowel habit 10) Fibromyalgia 11) Chronic pain in female pelvis 12) Kidney stone 13) Insomnia 14) Compartment syndrome 15) Obesity (SCT [id number]) comment: gastric bypass surgery 2022 16) Arthritis 17) Intermittent palpitations 18) Chronic obstructive lung disease 19) Obstructive sleep apnea of adult comment: cpap difficulty 20) Poor pelvic muscle tone 21) Cervicalgia 22) Bacterial cellulitis 23) Overactive bladder 24) Iron deficiency FAMILY HISTORY: No new updates. SOCIAL HISTORY: NICOTINE: Nicotine User: No ILLICIT DRUGS: No ETOH: denies ALLERGIES: VITAMIN B12 1000MCG, PANTOPRAZOLE, AMOXICILLIN, FLONASE NASAL SOLUTION PREGABALIN, METHOCARBAMOL ALLERGY REVIEW: Allergy list reviewed and remains current. MEDICATION RECONCILIATION: I have reviewed the patient's medication list with the patient and/or his/her care-day care attendant. Handwritten corrections, additions and/or deletions were made to the list. Corrected Outpatient Medication List was provided to the patient/caregiver. Active Outpatient Medications (including Supplies): Active Outpatient Medications Status 1) CODEINE 30/ACETAMINOPHEN 300MG TAB TAKE 1 TABLET BY MOUTH ACTIVE EVERY 6 HOURS NEEDED CAUTION: DO NOT EXCEED 4000MG PER DAY ACETAMINOPHEN (APAP) FROM ALL MEDS. Indication: FOR PAIN 2) CYANOCOBALAMIN 1000MCG/ML INJ INJECT 1000MCG/1ML ACTIVE INTRAMUSCULARLY EVERY 2 WEEKS Indication: FOR VITAMIN B12 SUPPLEMENTATION 3) DULOXETINE HCL 60MG EC CAP TAKE [...] A DAY NEEDED Indication: FOR SPASTICITY 10) TRAZODONE HCL 100MG TAB TAKE ONE TABLET BY MOUTH AT BEDTIME ACTIVE NEEDED Indication: FOR INSOMNIA 11) TRIAMCINOLONE ACETONIDE 0.1% CREAM APPLY SPARINGLY TO ACTIVE AFFECTED AREA(S) TWICE A DAY (EXTERNAL USE ONLY) Indication: FOR CONTACT DERMATITIS REVIEW OF SYSTEMS: General: Normal No Fevers, Chills, Weight Loss, Weight Gain, Recent Illness. Ears, Nose, Mouth, Throat: Normal No new loss of hearing or tinnitus, no Dental issue, Difficulty swallowing, Vertigo. Eye: Normal No Trauma, Cataracts, Glaucoma, Blurred vision Cardiovascular: Normal No Chest pain, Dizziness, Palpitations. Respiratory: Normal No Cough, SOB, Hemoptysis, Epistaxis, Influenza symptoms, +PDD. PHYSICAL EXAMINATION: General appearance: VITALS (most recent, as listed in the electronic record): B/P: 162/78 (11/14/2024 09:30) Pulse: 86 (11/14/2024 09:30) Temperature: 97.8 F [36.6 C] (11/14/2024 09:30) Weight: 180 lb [81.65 kg] (11/14/2024 09:30) Height: 62 in [157.5 cm] (11/14/2024 09:30) BMI: 33.0 Pain: 4 (11/14/2024 09:30) (0-10 scale) General: pleasant, cooperative, well-developed, obese, appropriately dressed and groomed Tererro; in no acute distress. Ears, Nose, Mouth, Throat:TM pearly riley, intact. Throat clear with no exudate. No trismus. Nose patent Eye:PERRL Cardiovascular:RRR, No m/r/g or clicks. Respiratory:Clear to auscultation bilaterally. No accessory muscle use. Respirations even and non-labored ABD/GI:soft, non-tender. BS + x 4. /TELEPHONE ASSEMBLER: Deferred Lymph: No lymphadenopathy Extremities:No pedal edema. Psych:Affect appropriate. Neuro: Oriented x3. Gait steady with normal stride. Hematology: Color good. No pallor. No ecchymosis or petechiae. Skin:excess skin on pannus with redness and itching on skin folds DATA REVIEW: SLT - Lab Tests Selected Collection DT Specimen Test Name Result Units Ref Range 06/07/2024 08:38 BLOOD HGA1C 5.7 % 4.0 - 6.0 06/15/2022 11:58 BLOOD HGA1C 5.8 % 4.0 - 6.0 = No LIPID PANEL EO data found = SODIUM 142 mEq/L 11/08/2024 06:00 POTASSIUM 3.9 mEq/L 11/08/2024 06:00 CHLORIDE 106 mEq/L 11/08/2024 06:00 UREA NITROGEN 21.2 mg/dL 11/08/2024 06:00 CREATININE 0.79 mg/dL 11/08/2024 06:00 CALCIUM 9.4 mg/dL 11/08/2024 06:00 PROTEIN 7.9 g/dL 11/07/2024 09:57 ALBUMIN 3.6 g/dL 11/08/2024 06:00 ALKALINE PHOSPHATASE 84 U/L 11/07/2024 09:57 ALT/SGPT 24 U/L 11/07/2024 09:57 AST/SGOT 30 U/L 11/07/2024 09:57 TOTAL BILIRUBIN 0.3 mg/dL 11/07/2024 09:57 CARBON DIOXIDE 27 mEq/L 11/08/2024 06:00 GLUCOSE 87 mg/dL 11/08/2024 06:00 EGFR (CKD-EPI 2020) 92.2 11/08/2024 06:00 = WBC 6.3 10*3/uL 11/08/2024 06:00 RBC 4.40 10*6/uL 11/08/2024 06:00 HGB 13.1 g/dL 11/08/2024 06:00 HCT 40.2 % 11/08/2024 06:00 MCV 91.4 fL 11/08/2024 06:00 MCH 29.8 pg 11/08/2024 06:00 MCHC 32.6 L g/dL 11/08/2024 06:00 RDW 13.0 % 11/08/2024 06:00 PLT 321 10*3/uL 11/08/2024 06:00 MPV 10.4 fL 11/08/2024 06:00 NEUTROPHILS, AUTO % 47 % 11/08/2024 06:00 LYMPHOCYTES, AUTO % 43 % 11/08/2024 06:00 MONOCYTES, AUTO % 7 % 11/08/2024 06:00 EOSINOPHILS, AUTO % 3 % 11/08/2024 06:00 BASOPHILS, AUTO % 1 % 11/08/2024 06:00 NEUTROPHILS, ABSOLUTE 2.95 10*3/uL 11/08/2024 06:00 LYMPHOCYTES, ABSOLUTE 2.70 10*3/uL 11/08/2024 06:00 MONOCYTES, ABSOLUTE 0.46 10*3/uL 11/08/2024 06:00 EOSINOPHILS, ABSOLUTE 0.16 10*3/uL 11/08/2024 06:00 BASOPHILS, ABSOLUTE 0.06 10*3/uL 11/08/2024 06:00 = No PSA (LAST 10 5Y) EO data found = TSH 3.321 uIU/mL 11/07/2024 11:22 = URIC ACID: No data available for: URIC ACID = B12 440 pg/mL 10/22/2024 12:04 = VITAMIN D, 25-HYDROXY 39.3 ng/mL 2024 06:00 = INR: INR VALUE 1.0 INR 11/19/2023 19:20 PROTIME 11.4 sec 11/19/2023 19:20 = URINE COLOR Yellow 11/07/2024 12:35 APPEARANCE Turbid 11/07/2024 12:35 U.PH 6.0 11/07/2024 12:35 U.BILIRUBIN Negative mg/dL 11/07/2024 12:35 U.NITRITE Negative mg/dL 11/07/2024 12:35 URINE RBC/HPF 11 H /HPF 11/07/2024 12:35 URINE WBC/HPF 6 H /HPF 11/07/2024 12:35 BACTERIA RARE /HPF 12/31/2023 21:27 SQUAMOUS EPITH. 2 /HPF 11/07/2024 12:35 MUCUS FEW /LPF 11/07/2024 12:35 HYALINE CASTS 1 /LPF 11/07/2024 12:35 CA OXYLATE CRYSTALS OCC /HPF 12/31/2023 21:27 U.ACID CRYSTALS MOD /HPF 11/19/2023 19:20 = Urine Microalbumin: CREATuF: 107.3 (11/07/24 12:35) = AMPHET/METHAMPHETAMINE Negative ng/mL 11/07/2024 12:35 AMPHET/METHAMPHETAMINE Negative ng/mL 12/31/2023 21:27 BENZODIAZEPINES (STL) POSITIVE ng/mL 11/07/2024 12:35 CANNABINOIDS Negative ng/mL 11/07/2024 12:35 CANNABINOIDS Negative ng/mL 12/31/2023 21:27 COCAINE METABOLITES Negative ng/mL 11/07/2024 12:35 COCAINE METABOLITES Negative ng/mL 12/31/2023 21:27 METHADONE Negative ng/mL 11/07/2024 12:35 OPIATES Negative ng/mL 11/07/2024 12:35 OPIATES Negative ng/mL 12/31/2023 21:27 OXYCODONE (BSTRH-YOE-BE) Negative ng/mL 11/07/2024 12:35 BUPRENORPHINE (STL-PB-MA) Negative ng/mL 11/07/2024 12:35 FENTANYL (STL) Negative ng/mL 11/07/2024 12:35 CREATININE URINE/OTHERS 107.3 mg/dL 11/07/2024 12:35 CREATININE URINE/OTHERS 253.6 H mg/dL 12/31/2023 21:27 ETHANOL <10 mg/dL 11/07/2024 12:35 ETHANOL Negative mg/dL 12/31/2023 21:27 = Dilantin: ____ = Digoxin: No data available for: DIGOXIN = Chest x-ray: No data available for: CHEST 2 VIEWS PA&LAT = EK11/11/2024 22:33 Local Title: EKG CONSULT STL Standard Title: CARDIOLOGY DIAGNOSTIC STUDY CONSULT AUTHOR: CLINICAL,DEVICE PROXY SERVICE DOCUMENT IN [employer] IMAGING SEE FULL REPORT IN [facility] SIGNATURE NOT REQUIRED SEE SIGNATURE IN VISTA IMAGING ([facility]) AUTO-INSTRUMENT DIAGNOSIS Procedure: 39607 12 Lead ECG Release Status: Released Off-Line Verified Date Verified: Nov 11, 2024@22:33:33 43671.2 Ventricular Rate: 65 BPM 61536.3 Atrial Rate: 65 BPM 48455.4 P-R Interval: 138 ms 12562.5 QRS Duration: 86 ms 31745.6 Q-T Interval: 428 ms 07242 QTC Calculation(Bazett)445 ms 08124.12 Calculated P [place]: 50 degrees 31813.13 Calculated R [place]: 94 degrees 87052.14 Calculated T [place]: 73 degrees Normal sinus rhythm Rightward axis Cannot rule out Anterior infarct (cited on or before 16-JUN-2020) Abnormal ECG When compared with ECG of 07-FEB-2023 14:56, Questionable change in The axis ST no longer depressed in Anterior leads T wave inversion no longer evident in Anterior leads Administrative Closure: 11/11/2024 by: CLINICAL,DEVICE PROXY SERVICE < THE ABOVE NOTE IS UNSIGNED > - DRAFT COPY * DRAFT COPY * DRAFT COPY * DRAFT COPY * DRAFT COPY * DRAFT COPY - Result: Acceptable Follow-up Action: Data results reviewed with patient ASSESSMENT/PLAN: chronic leg pain and joints pain/LBP, tolerating Tylenol with codeine. UDS done. no aberrant drug taking behavior, no opioid toxicity. advised to call pain mngt and request follow up visit as she is inclined to seek eval for possibility of CRPS. she has pending ortho consult to rule out recurrent compartment syndrome as the leg pain is significant on the limb thet underwent release yrs ago intertrigo on excess skin fold after significant weight loss post bariatruc surgery.continue to wash with soapy water, pat dry and apply corstarct poswder and antifungal. plastics consult RETURN TO CLINIC:6-9 mo Return to Clinic order placed SUMMARY STATEMENT: Plan of care has been discussed with including expected therapeutic benefits and potential side effects of prescribed medication and treatments. Tererro verbalizes understanding and is in agreement with the plan of care. Patient was instructed to keep all scheduled appointments and contact vp public relations for any additional problems. PREVENTION & SCREENING: ALCOHOL: Clinical Reminder not due now or within a month BLOOD PRESSURE: Clinical Reminder not due now or within a month HEMOGLOBIN A1C: Clinical Reminder not due now or within a month /tamera/ VERNA BARRERA MD Signed: 11/28/2024 15:54 11/29/2024 ADDENDUM STATUS: COMPLETED pt has chronic leg pain, this is the leg that has hx of compartment syndrome and hx of release in the remote past. she has pending ortho appointment to rule out recurrent compartment syndrome as source of pain. Pt has been seen by pain mngt in the past and is requesting follow up with a provider to discuss Complex regional pain syndrome.Your recommendatio will be greatly appreciated /tamera/ VERNA BARRERA MD Signed: 11/29/2024 15:58 Receipt Acknowledged By: 12/04/2024 17:28 /tamera/ GEOFF AL, GRAVEL INSPECTOR-ZEINA AL, ANP-GEOFF URIBE [facility] Nov 29, 2024 03:55 PM ADDENDUM: LOCAL TITLE: Addendum STANDARD TITLE: ADDENDUM DATE OF NOTE: NOV 29, 2024@15:55:25 ENTRY DATE: NOV 29, 2024@15:55:26 AUTHOR: VERNA BARRERA COSIGNER: URGENCY: STATUS: COMPLETED pt has chronic leg pain, this is the leg that has hx of compartment syndrome and hx of release in the remote past. she has pending ortho appointment to rule out recurrent compartment syndrome as source of pain. Pt has been seen by pain mngt in the past and is requesting follow up with a provider to discuss Complex regional pain syndrome.Your recommendatio will be greatly appreciated /tamera/ VERNA BARRERA MD Signed: 11/29/2024 15:58 Receipt Acknowledged By: 12/04/2024 17:28 /tamera/ JORGE HADLEY ANP-BC --- Original Document --- 11/14/24 PRIMARY CARE PROVIDER ESTABLISHED VISIT STL: ESTABLISHED PATIENT [id number]: REASON FOR VISIT/CHIEF COMPLAINT: post hosp f.u HPI:GERDA Amado is a 49 Y.O FEMALE with PMHx of hypothyroidism, migraine headaches, obesity, obstructive sleep apnea, status post gastric bypass complicated by esophageal stenosis with dilatation, compartment syndrome left leg with decompression surgery and resultant chronic pain to left lower extremity on duloxetine, lumbar radiculopathy affecting left lower extremity, fibromyalgia who presented to [facility] on 11/07/24 with symptoms of nausea, headache, tremors and weakness following recent changes to medications. Recently increased on dose of cymbalta three months prior to admission and started tramadol 50mg 4 times daily with onset of symptoms within 24 hours. She presented to the ED for these symptoms and had unrevealing vitals and labs. Her symptoms improved with cessation of suspected medications for possible serotonin syndrome as well and supportive care. Stable for discharge on 11/08/24. pt would like to be evaluated for poss CRPS-- advised to call pain mnt for appointment She reports recurrent itchy rash on her skin folds on the lower abdominal area. had significant weight loss in the past yr after bariatric surgery. SOURCE(S) OF HISTORY: Patient PAST MEDICAL HISTORY: 1) Family history of ischemic heart disease (SNOMED CT 285966070) 2) Migraine (SNOMED CT 50102725) 3) Vitamin D deficiency 4) Hypothyroidism 5) Low back pain 6) Depression 7) Mastodynia 8) Lumbar radiculopathy 9) Irritable bowel syndrome characterized by alternating bowel habit 10) Fibromyalgia 11) Chronic pain in female pelvis 12) Kidney stone 13) Insomnia 14) Compartment syndrome 15) Obesity (SCT 957475990) comment: gastric bypass surgery 2022 16) Arthritis 17) Intermittent palpitations 18) Chronic obstructive lung disease 19) Obstructive sleep apnea of adult comment: cpap difficulty 20) Poor pelvic muscle tone 21) Cervicalgia 22) Bacterial cellulitis 23) Overactive bladder 24) Iron deficiency FAMILY HISTORY: No new updates. SOCIAL HISTORY: NICOTINE: Nicotine User: No ILLICIT DRUGS: No ETOH: denies ALLERGIES: VITAMIN B12 1000MCG, PANTOPRAZOLE, AMOXICILLIN, FLONASE NASAL SOLUTION PREGABALIN, METHOCARBAMOL ALLERGY REVIEW: Allergy list reviewed and remains current. MEDICATION RECONCILIATION: I have reviewed the patient's medication list with the patient and/or his/her care-day care attendant. Handwritten corrections, additions and/or deletions were made to the list. Corrected Outpatient Medication List was provided to the patient/caregiver. Active Outpatient Medications (including Supplies): Active Outpatient Medications Status 1) CODEINE 30/ACETAMINOPHEN 300MG TAB TAKE 1 TABLET BY MOUTH ACTIVE EVERY 6 HOURS NEEDED CAUTION: DO NOT EXCEED 4000MG PER DAY ACETAMINOPHEN (APAP) FROM ALL MEDS. Indication: FOR PAIN 2) CYANOCOBALAMIN 1000MCG/ML INJ INJECT 1000MCG/1ML ACTIVE INTRAMUSCULARLY EVERY 2 WEEKS Indication: FOR VITAMIN B12 SUPPLEMENTATION 3) DULOXETINE HCL 60MG EC CAP TAKE [...] A DAY NEEDED Indication: FOR SPASTICITY 10) TRAZODONE HCL 100MG TAB TAKE ONE TABLET BY MOUTH AT BEDTIME ACTIVE NEEDED Indication: FOR INSOMNIA 11) TRIAMCINOLONE ACETONIDE 0.1% CREAM APPLY SPARINGLY TO ACTIVE AFFECTED AREA(S) TWICE A DAY (EXTERNAL USE ONLY) Indication: FOR CONTACT DERMATITIS REVIEW OF SYSTEMS: General: Normal No Fevers, Chills, Weight Loss, Weight Gain, Recent Illness. Ears, Nose, Mouth, Throat: Normal No new loss of hearing or tinnitus, no Dental issue, Difficulty swallowing, Vertigo. Eye: Normal No Trauma, Cataracts, Glaucoma, Blurred vision Cardiovascular: Normal No Chest pain, Dizziness, Palpitations. Respiratory: Normal No Cough, SOB, Hemoptysis, Epistaxis, Influenza symptoms, +PDD. PHYSICAL EXAMINATION: General appearance: VITALS (most recent, as listed in the electronic record): B/P: 162/78 (11/14/2024 09:30) Pulse: 86 (11/14/2024 09:30) Temperature: 97.8 F [36.6 C] (11/14/2024 09:30) Weight: 180 lb [81.65 kg] (11/14/2024 09:30) Height: 62 in [157.5 cm] (11/14/2024 09:30) BMI: 33.0 Pain: 4 (11/14/2024 09:30) (0-10 scale) General: pleasant, cooperative, well-developed, obese, appropriately dressed and groomed Tererro; in no acute distress. Ears, Nose, Mouth, Throat:TM pearly riley, intact. Throat clear with no exudate. No trismus. Nose patent Eye:PERRL Cardiovascular:RRR, No m/r/g or clicks. Respiratory:Clear to auscultation bilaterally. No accessory muscle use. Respirations even and non-labored ABD/GI:soft, non-tender. BS + x 4. /TELEPHONE ASSEMBLER: Deferred Lymph: No lymphadenopathy Extremities:No pedal edema. Psych:Affect appropriate. Neuro: Oriented x3. Gait steady with normal stride. Hematology: Color good. No pallor. No ecchymosis or petechiae. Skin:excess skin on pannus with redness and itching on skin folds DATA REVIEW: SLT - Lab Tests Selected Collection DT Specimen Test Name Result Units Ref Range 06/07/2024 08:38 BLOOD HGA1C 5.7 % 4.0 - 6.0 06/15/2022 11:58 BLOOD HGA1C 5.8 % 4.0 - 6.0 = No LIPID PANEL EO data found = SODIUM 142 mEq/L 11/08/2024 06:00 POTASSIUM 3.9 mEq/L 11/08/2024 06:00 CHLORIDE 106 mEq/L 11/08/2024 06:00 UREA NITROGEN 21.2 mg/dL 11/08/2024 06:00 CREATININE 0.79 mg/dL 11/08/2024 06:00 CALCIUM 9.4 mg/dL 11/08/2024 06:00 PROTEIN 7.9 g/dL 11/07/2024 09:57 ALBUMIN 3.6 g/dL 11/08/2024 06:00 ALKALINE PHOSPHATASE 84 U/L 11/07/2024 09:57 ALT/SGPT 24 U/L 11/07/2024 09:57 AST/SGOT 30 U/L 11/07/2024 09:57 TOTAL BILIRUBIN 0.3 mg/dL 11/07/2024 09:57 CARBON DIOXIDE 27 mEq/L 11/08/2024 06:00 GLUCOSE 87 mg/dL 11/08/2024 06:00 EGFR (CKD-EPI 2020) 92.2 11/08/2024 06:00 = WBC 6.3 10*3/uL 11/08/2024 06:00 RBC 4.40 10*6/uL 11/08/2024 06:00 HGB 13.1 g/dL 11/08/2024 06:00 HCT 40.2 % 11/08/2024 06:00 MCV 91.4 fL 11/08/2024 06:00 MCH 29.8 pg 11/08/2024 06:00 MCHC 32.6 L g/dL 11/08/2024 06:00 RDW 13.0 % 11/08/2024 06:00 PLT 321 10*3/uL 11/08/2024 06:00 MPV 10.4 fL 11/08/2024 06:00 NEUTROPHILS, AUTO % 47 % 11/08/2024 06:00 LYMPHOCYTES, AUTO % 43 % 11/08/2024 06:00 MONOCYTES, AUTO % 7 % 11/08/2024 06:00 EOSINOPHILS, AUTO % 3 % 11/08/2024 06:00 BASOPHILS, AUTO % 1 % 11/08/2024 06:00 NEUTROPHILS, ABSOLUTE 2.95 10*3/uL 11/08/2024 06:00 LYMPHOCYTES, ABSOLUTE 2.70 10*3/uL 11/08/2024 06:00 MONOCYTES, ABSOLUTE 0.46 10*3/uL 11/08/2024 06:00 EOSINOPHILS, ABSOLUTE 0.16 10*3/uL 11/08/2024 06:00 BASOPHILS, ABSOLUTE 0.06 10*3/uL 11/08/2024 06:00 = No PSA (LAST 10 5Y) EO data found = TSH 3.321 uIU/mL 11/07/2024 11:22 = URIC ACID: No data available for: URIC ACID = B12 440 pg/mL 10/22/2024 12:04 = VITAMIN D, 25-HYDROXY 39.3 ng/mL 2024 06:00 = INR: INR VALUE 1.0 INR 11/19/2023 19:20 PROTIME 11.4 sec 11/19/2023 19:20 = URINE COLOR Yellow 11/07/2024 12:35 APPEARANCE Turbid 11/07/2024 12:35 U.PH 6.0 11/07/2024 12:35 U.BILIRUBIN Negative mg/dL 11/07/2024 12:35 U.NITRITE Negative mg/dL 11/07/2024 12:35 URINE RBC/HPF 11 H /HPF 11/07/2024 12:35 URINE WBC/HPF 6 H /HPF 11/07/2024 12:35 BACTERIA RARE /HPF 12/31/2023 21:27 SQUAMOUS EPITH. 2 /HPF 11/07/2024 12:35 MUCUS FEW /LPF 11/07/2024 12:35 HYALINE CASTS 1 /LPF 11/07/2024 12:35 CA OXYLATE CRYSTALS OCC /HPF 12/31/2023 21:27 U.ACID CRYSTALS MOD /HPF 11/19/2023 19:20 = Urine Microalbumin: CREATuF: 107.3 (11/07/24 12:35) = AMPHET/METHAMPHETAMINE Negative ng/mL 11/07/2024 12:35 AMPHET/METHAMPHETAMINE Negative ng/mL 12/31/2023 21:27 BENZODIAZEPINES (STL) POSITIVE ng/mL 11/07/2024 12:35 CANNABINOIDS Negative ng/mL 11/07/2024 12:35 CANNABINOIDS Negative ng/mL 12/31/2023 21:27 COCAINE METABOLITES Negative ng/mL 11/07/2024 12:35 COCAINE METABOLITES Negative ng/mL 12/31/2023 21:27 METHADONE Negative ng/mL 11/07/2024 12:35 OPIATES Negative ng/mL 11/07/2024 12:35 OPIATES Negative ng/mL 12/31/2023 21:27 OXYCODONE (FEIVY-QCV-UA) Negative ng/mL 11/07/2024 12:35 BUPRENORPHINE (STL-PB-MA) Negative ng/mL 11/07/2024 12:35 FENTANYL (STL) Negative ng/mL 11/07/2024 12:35 CREATININE URINE/OTHERS 107.3 mg/dL 11/07/2024 12:35 CREATININE URINE/OTHERS 253.6 H mg/dL 12/31/2023 21:27 ETHANOL <10 mg/dL 11/07/2024 12:35 ETHANOL Negative mg/dL 12/31/2023 21:27 = Dilantin: ____ = Digoxin: No data available for: DIGOXIN = Chest x-ray: No data available for: CHEST 2 VIEWS PA&LAT = EK11/11/2024 22:33 Local Title: EKG CONSULT STL Standard Title: CARDIOLOGY DIAGNOSTIC STUDY CONSULT AUTHOR: CLINICAL,DEVICE PROXY SERVICE DOCUMENT IN [facility] SEE FULL REPORT IN [facility] SIGNATURE NOT REQUIRED SEE SIGNATURE IN [facility]ISTA IMAGING ([facility]) AUTO-INSTRUMENT DIAGNOSIS Procedure: [id number] 12 Lead ECG Release Status: Released Off-Line Verified Date Verified: Nov 11, 2024@22:33:33 45544.2 Ventricular Rate: 65 BPM 90592.3 Atrial Rate: 65 BPM 17915.4 P-R Interval: 138 ms 89222.5 QRS Duration: 86 ms 85734.6 Q-T Interval: 428 ms 95997 QTC Calculation(Bazett)445 ms 19965.12 Calculated P [place]: 50 degrees 55374.13 Calculated R [place]: 94 degrees 11724.14 Calculated T [place]: 73 degrees Normal sinus rhythm Rightward axis Cannot rule out Anterior infarct (cited on or before 16-JUN-2020) Abnormal ECG When compared with ECG of 07-FEB-2023 14:56, Questionable change in The axis ST no longer depressed in Anterior leads T wave inversion no longer evident in Anterior leads Administrative Closure: 11/11/2024 by: CLINICAL,DEVICE PROXY SERVICE < THE ABOVE NOTE IS UNSIGNED > - DRAFT COPY * DRAFT COPY * DRAFT COPY * DRAFT COPY * DRAFT COPY * DRAFT COPY - Result: Acceptable Follow-up Action: Data results reviewed with patient ASSESSMENT/PLAN: chronic leg pain and joints pain/LBP, tolerating Tylenol with codeine. UDS done. no aberrant drug taking behavior, no opioid toxicity. advised to call pain mngt and request follow up visit as she is inclined to seek eval for possibility of CRPS. she has pending ortho consult to rule out recurrent compartment syndrome as the leg pain is significant on the limb thet underwent release yrs ago intertrigo on excess skin fold after significant weight loss post bariatruc surgery.continue to wash with soapy water, pat dry and apply corstarct poswder and antifungal. plastics consult RETURN TO CLINIC:6-9 mo Return to Clinic order placed SUMMARY STATEMENT: Plan of care has been discussed with including expected therapeutic benefits and potential side effects of prescribed medication and treatments. verbalizes understanding and is in agreement with the plan of care. Patient was instructed to keep all scheduled appointments and contact vp public relations for any additional problems. PREVENTION & SCREENING: ALCOHOL: Clinical Reminder not due now or within a month BLOOD PRESSURE: Clinical Reminder not due now or within a month HEMOGLOBIN A1C: Clinical Reminder not due now or within a month /tamera/ VERNA BARRERA MD Signed: 11/28/2024 15:54 12/04/2024 ADDENDUM STATUS: UNSIGNED You may not VIEW this UNSIGNED Addendum. VERNA BARRERA [facility] Nov 14, 2024 11:19 PM ACCOUNTING OF DISC LOSURES NOTE: LOCAL TITLE: STATE PRESCRIPTION DRUG MONITORING PROGRAM STANDARD TITLE: ACCOUNTING OF DISCLOSURES NOTE DATE OF NOTE: NOV 14, 2024@23:19 ENTRY DATE: NOV 14, 2024@23:20:08 AUTHOR: VERNA BARRERA EXP COSIGNER: URGENCY: STATUS: COMPLETED [SPDM] The clinical justification for this PDMP query is to review controlled substances prescribed outside of the [facility], and any additional information that may become available, as an important component of standard clinical care, and in accordance with [facility] policy. *Date of Prescription Monitoring Program Query: Oct I reviewed patient's PDMP report for Schedule II, III, IV, or V medications from the following State PDMP [facility] *Findings: No prescription(s) for controlled substances outside the [facility] were found in the last 90 days. [END*] /tamera/ VERNA BARRERA MD Signed: 11/14/2024 23:20 VERNA BARRERA [facility] Nov 14, 2024 09:38 AM PRIMARY CARE NOTE: LOCAL TITLE: PRIMARY CARE PROVIDER ESTABLISHED VISIT ST STANDARD TITLE: PRIMARY CARE NOTE DATE OF NOTE: NOV 14, 2024@09:38 ENTRY DATE: NOV 14, 2024@09:38:14 AUTHOR: VERNA BARRERA EXP COSIGNER: URGENCY: STATUS: COMPLETED PRIMARY CARE PROVIDER ESTABLISHED VISIT ST Has ADDENDA ESTABLISHED PATIENT [id number]: REASON FOR VISIT/CHIEF COMPLAINT: post hosp f.u HPI:GERDA Amado is a 49 Y.O FEMALE with PMHx of hypothyroidism, migraine headaches, obesity, obstructive sleep apnea, status post gastric bypass complicated by esophageal stenosis with dilatation, compartment syndrome left leg with decompression surgery and resultant chronic pain to left lower extremity on duloxetine, lumbar radiculopathy affecting left lower extremity, fibromyalgia who presented to [facility] on 11/07/24 with symptoms of nausea, headache, tremors and weakness following recent changes to medications. Recently increased on dose of cymbalta three months prior to admission and started tramadol 50mg 4 times daily with onset of symptoms within 24 hours. She presented to the ED for these symptoms and had unrevealing vitals and labs. Her symptoms improved with cessation of suspected medications for possible serotonin syndrome as well and supportive care. Stable for discharge on 11/08/24. pt would like to be evaluated for poss CRPS-- advised to call pain mnt for appointment She reports recurrent itchy rash on her skin folds on the lower abdominal area. had significant weight loss in the past yr after bariatric surgery. SOURCE(S) OF HISTORY: Patient PAST MEDICAL HISTORY: 1) Family history of ischemic heart disease (SNOMED CT 039954132) 2) Migraine (SNOMED CT 76245992) 3) Vitamin D deficiency 4) Hypothyroidism 5) Low back pain 6) Depression 7) Mastodynia 8) Lumbar radiculopathy 9) Irritable bowel syndrome characterized by alternating bowel habit 10) Fibromyalgia 11) Chronic pain in female pelvis 12) Kidney stone 13) Insomnia 14) Compartment syndrome 15) Obesity (SCT 726075066) comment: gastric bypass surgery 2022 16) Arthritis 17) Intermittent palpitations 18) Chronic obstructive lung disease 19) Obstructive sleep apnea of adult comment: cpap difficulty 20) Poor pelvic muscle tone 21) Cervicalgia 22) Bacterial cellulitis 23) Overactive bladder 24) Iron deficiency FAMILY HISTORY: No new updates. SOCIAL HISTORY: NICOTINE: Nicotine User: No ILLICIT DRUGS: No ETOH: denies ALLERGIES: VITAMIN B12 1000MCG, PANTOPRAZOLE, AMOXICILLIN, FLONASE NASAL SOLUTION PREGABALIN, METHOCARBAMOL ALLERGY REVIEW: Allergy list reviewed and remains current. MEDICATION RECONCILIATION: I have reviewed the patient's medication list with the patient and/or his/her care-day care attendant. Handwritten corrections, additions and/or deletions were made to the list. Corrected Outpatient Medication List was provided to the patient/caregiver. Active Outpatient Medications (including Supplies): Active Outpatient Medications Status 1) CODEINE 30/ACETAMINOPHEN 300MG TAB TAKE 1 TABLET BY MOUTH ACTIVE EVERY 6 HOURS NEEDED CAUTION: DO NOT EXCEED 4000MG PER DAY ACETAMINOPHEN (APAP) FROM ALL MEDS. Indication: FOR PAIN 2) CYANOCOBALAMIN 1000MCG/ML INJ INJECT 1000MCG/1ML ACTIVE INTRAMUSCULARLY EVERY 2 WEEKS Indication: FOR VITAMIN B12 SUPPLEMENTATION 3) DULOXETINE HCL 60MG EC CAP TAKE [...] A DAY NEEDED Indication: FOR SPASTICITY 10) TRAZODONE HCL 100MG TAB TAKE ONE TABLET BY MOUTH AT BEDTIME ACTIVE NEEDED Indication: FOR INSOMNIA 11) TRIAMCINOLONE ACETONIDE 0.1% CREAM APPLY SPARINGLY TO ACTIVE AFFECTED AREA(S) TWICE A DAY (EXTERNAL USE ONLY) Indication: FOR CONTACT DERMATITIS REVIEW OF SYSTEMS: General: Normal No Fevers, Chills, Weight Loss, Weight Gain, Recent Illness. Ears, Nose, Mouth, Throat: Normal No new loss of hearing or tinnitus, no Dental issue, Difficulty swallowing, Vertigo. Eye: Normal No Trauma, Cataracts, Glaucoma, Blurred vision Cardiovascular: Normal No Chest pain, Dizziness, Palpitations. Respiratory: Normal No Cough, SOB, Hemoptysis, Epistaxis, Influenza symptoms, +PDD. PHYSICAL EXAMINATION: General appearance: VITALS (most recent, as listed in the electronic record): B/P: 162/78 (11/14/2024 09:30) Pulse: 86 (11/14/2024:30) Temperature: 97.8 F [36.6 C] (11/14/2024:30) Weight: 180 lb [81.65 kg] (11/14/2024:) Height: 62 in [157.5 cm] (11/14/2024) BMI: 33.0 Pain: 4 (11/14/2024:) (0-10 scale) General: pleasant, cooperative, well-developed, obese, appropriately dressed and groomed Tererro; in no acute distress. Ears, Nose, Mouth, Throat:TM pearly riley, intact. Throat clear with no exudate. No trismus. Nose patent Eye:PERRL Cardiovascular:RRR, No m/r/g or clicks. Respiratory:Clear to auscultation bilaterally. No accessory muscle use. Respirations even and non-labored ABD/GI:soft, non-tender. BS + x 4. /TELEPHONE ASSEMBLER: Deferred Lymph: No lymphadenopathy Extremities:No pedal edema. Psych:Affect appropriate. Neuro: Oriented x3. Gait steady with normal stride. Hematology: Color good. No pallor. No ecchymosis or petechiae. Skin:excess skin on pannus with redness and itching on skin folds DATA REVIEW: SLT - Lab Tests Selected Collection DT Specimen Test Name Result Units Ref Range 06/07/2024 08:38 BLOOD HGA1C 5.7 % 4.0 - 6.0 06/15/2022 11:58 BLOOD HGA1C 5.8 % 4.0 - 6.0 = No LIPID PANEL EO data found = SODIUM 142 mEq/L 11/08/2024 06:00 POTASSIUM 3.9 mEq/L 11/08/2024 06:00 CHLORIDE 106 mEq/L 11/08/2024 06:00 UREA NITROGEN 21.2 mg/dL 11/08/2024 06:00 CREATININE 0.79 mg/dL 11/08/2024 06:00 CALCIUM 9.4 mg/dL 11/08/2024 06:00 PROTEIN 7.9 g/dL 11/07/2024 09:57 ALBUMIN 3.6 g/dL 11/08/2024 06:00 ALKALINE PHOSPHATASE 84 U/L 11/07/2024 09:57 ALT/SGPT 24 U/L 11/07/2024 09:57 AST/SGOT 30 U/L 11/07/2024 09:57 TOTAL BILIRUBIN 0.3 mg/dL 11/07/2024 09:57 CARBON DIOXIDE 27 mEq/L 11/08/2024 06:00 GLUCOSE 87 mg/dL 11/08/2024 06:00 EGFR (CKD-EPI 2020) 92.2 11/08/2024 06:00 = WBC 6.3 10*3/uL 11/08/2024 06:00 RBC 4.40 10*6/uL 11/08/2024 06:00 HGB 13.1 g/dL 11/08/2024 06:00 HCT 40.2 % 11/08/2024 06:00 MCV 91.4 fL 11/08/2024 06:00 MCH 29.8 pg 11/08/2024 06:00 MCHC 32.6 L g/dL 11/08/2024 06:00 RDW 13.0 % 11/08/2024 06:00 PLT 321 10*3/uL 11/08/2024 06:00 MPV 10.4 fL 11/08/2024 06:00 NEUTROPHILS, AUTO % 47 % 11/08/2024 06:00 LYMPHOCYTES, AUTO % 43 % 11/08/2024 06:00 MONOCYTES, AUTO % 7 % 11/08/2024 06:00 EOSINOPHILS, AUTO % 3 % 11/08/2024 06:00 BASOPHILS, AUTO % 1 % 11/08/2024 06:00 NEUTROPHILS, ABSOLUTE 2.95 10*3/uL 11/08/2024 06:00 LYMPHOCYTES, ABSOLUTE 2.70 10*3/uL 11/08/2024 06:00 MONOCYTES, ABSOLUTE 0.46 10*3/uL 11/08/2024 06:00 EOSINOPHILS, ABSOLUTE 0.16 10*3/uL 11/08/2024 06:00 BASOPHILS, ABSOLUTE 0.06 10*3/uL 11/08/2024 06:00 = No PSA (LAST 10 5Y) EO data found = TSH 3.321 uIU/mL 11/07/2024 11:22 = URIC ACID: No data available for: URIC ACID = B12 440 pg/mL 10/22/2024 12:04 = VITAMIN D, 25-HYDROXY 39.3 ng/mL 2024 06:00 = INR: INR VALUE 1.0 INR 11/19/2023 19:20 PROTIME 11.4 sec 11/19/2023 19:20 = URINE COLOR Yellow 11/07/2024 12:35 APPEARANCE Turbid 11/07/2024 12:35 U.PH 6.0 11/07/2024 12:35 U.BILIRUBIN Negative mg/dL 11/07/2024 12:35 U.NITRITE Negative mg/dL 11/07/2024 12:35 URINE RBC/HPF 11 H /HPF 11/07/2024 12:35 URINE WBC/HPF 6 H /HPF 11/07/2024 12:35 BACTERIA RARE /HPF 12/31/2023 21:27 SQUAMOUS EPITH. 2 /HPF 11/07/2024 12:35 MUCUS FEW /LPF 11/07/2024 12:35 HYALINE CASTS 1 /LPF 11/07/2024 12:35 CA OXYLATE CRYSTALS OCC /HPF 12/31/2023 21:27 U.ACID CRYSTALS MOD /HPF 11/19/2023 19:20 = Urine Microalbumin: CREATuF: 107.3 (11/07/24 12:35) = AMPHET/METHAMPHETAMINE Negative ng/mL 11/07/2024 12:35 AMPHET/METHAMPHETAMINE Negative ng/mL 12/31/2023 21:27 BENZODIAZEPINES (STL) POSITIVE ng/mL 11/07/2024 12:35 CANNABINOIDS Negative ng/mL 11/07/2024 12:35 CANNABINOIDS Negative ng/mL 12/31/2023 21:27 COCAINE METABOLITES Negative ng/mL 11/07/2024 12:35 COCAINE METABOLITES Negative ng/mL 12/31/2023 21:27 METHADONE Negative ng/mL 11/07/2024 12:35 OPIATES Negative ng/mL 11/07/2024 12:35 OPIATES Negative ng/mL 12/31/2023 21:27 OXYCODONE (CZMIR-HKO-JG) Negative ng/mL 11/07/2024 12:35 BUPRENORPHINE (STL-PB-MA) Negative ng/mL 11/07/2024 12:35 FENTANYL (STL) Negative ng/mL 11/07/2024 12:35 CREATININE URINE/OTHERS 107.3 mg/dL 11/07/2024 12:35 CREATININE URINE/OTHERS 253.6 H mg/dL 12/31/2023 21:27 ETHANOL <10 mg/dL 11/07/2024 12:35 ETHANOL Negative mg/dL 12/31/2023 21:27 = Dilantin: ____ = Digoxin: No data available for: DIGOXIN = Chest x-ray: No data available for: CHEST 2 VIEWS PA&LAT = EK11/11/2024 22:33 Local Title: EKG CONSULT ST Standard Title: CARDIOLOGY DIAGNOSTIC STUDY CONSULT AUTHOR: CLINICAL,DEVICE PROXY SERVICE DOCUMENT IN VISTA [facility]AGING SEE FULL REPORT IN VISTA [facility] SIGNATURE NOT REQUIRED SEE SIGNATURE IN VISTA IMAGING ([facility]) AUTO-INSTRUMENT DIAGNOSIS Procedure: 68815 12 Lead ECG Release Status: Released Off-Line Verified Date Verified: Nov 11, 2024@22:33:33 35622.2 Ventricular Rate: 65 BPM 44890.3 Atrial Rate: 65 BPM 27555.4 P-R Interval: 138 ms 58947.5 QRS Duration: 86 ms 98444.6 Q-T Interval: 428 ms 00758 QTC Calculation(Bazett)445 ms 33885.12 Calculated P [place]: 50 degrees 47026.13 Calculated R [place]: 94 degrees 46625.14 Calculated T [place]: 73 degrees Normal sinus rhythm Rightward axis Cannot rule out Anterior infarct (cited on or before 16-JUN-2020) Abnormal ECG When compared with ECG of 07-FEB-2023 14:56, Questionable change in The axis ST no longer depressed in Anterior leads T wave inversion no longer evident in Anterior leads Administrative Closure: 11/11/2024 by: CLINICAL,DEVICE PROXY SERVICE < THE ABOVE NOTE IS UNSIGNED > - DRAFT COPY * DRAFT COPY * DRAFT COPY * DRAFT COPY * DRAFT COPY * DRAFT COPY - Result: Acceptable Follow-up Action: Data results reviewed with patient ASSESSMENT/PLAN: chronic leg pain and joints pain/LBP, tolerating Tylenol with codeine. UDS done. no aberrant drug taking behavior, no opioid toxicity. advised to call pain mngt and request follow up visit as she is inclined to seek eval for possibility of CRPS. she has pending ortho consult to rule out recurrent compartment syndrome as the leg pain is significant on the limb thet underwent release yrs ago intertrigo on excess skin fold after significant weight loss post bariatruc surgery.continue to wash with soapy water, pat dry and apply corstarct poswder and antifungal. plastics consult RETURN TO CLINIC:6-9 mo Return to Clinic order placed SUMMARY STATEMENT: Plan of care has been discussed with including expected therapeutic benefits and potential side effects of prescribed medication and treatments. verbalizes understanding and is in agreement with the plan of care. Patient was instructed to keep all scheduled appointments and contact vp public relations for any additional problems. PREVENTION & SCREENING: ALCOHOL: Clinical Reminder not due now or within a month BLOOD PRESSURE: Clinical Reminder not due now or within a month HEMOGLOBIN A1C: Clinical Reminder not due now or within a month /angelika BARRERA MD Signed: 11/28/2024 15:54 11/29/2024 ADDENDUM STATUS: COMPLETED pt has chronic leg pain, this is the leg that has hx of compartment syndrome and hx of release in the remote past. she has pending ortho appointment to rule out recurrent compartment syndrome as source of pain. Pt has been seen by pain mngt in the past and is requesting follow up with a provider to discuss Complex regional pain syndrome.Your recommendatio will be greatly appreciated /angelika BARRERA MD Signed: 11/29/2024 15:58 Receipt Acknowledged By: 12/04/2024 17:28 /tamera/ JORGE HADLEY ANP-BC 12/04/2024 ADDENDUM STATUS: COMPLETED Pt previously seen for mid/low back pain; seen by Ortho 11/27/24 with no further surgical interventions recommended or concerns for acute compartment syndrome. 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 PCP may consider referral to [facility] IPR program-this is a 10wk outpt interdisciplinary program that can help focus on self management of chronic pain, learn to modify activities with pacing/grouping vs. alternative activities to trial etc that may be of sig. benefit for this pt. If pt is not able or willing to trial, can consider a Pain Pharm eConsult for assistance with possible medication trials, PM&R referral for eval/education, [facility] or placing a new pain management consult-due to current in-house wait time, community care may be offered if is eligible and has completed stepped/active care trials within the last 12 months for L.LE pain without benefit. /tamera/ JORGE HADLEY ANP-BC Signed: 12/04/2024 17:36 Receipt Acknowledged By: * AWAITING SIGNATURE * VERNA BARRERA [facility]IDA [facility] Nov 14, 2024 09:32 AM NURSING NOTE: LOCAL TITLE: V15 PACT FACE TO FACE NOTE STL STANDARD TITLE: NURSING NOTE DATE OF NOTE: NOV 14, 2024@09:32 ENTRY DATE: NOV 14, 2024@09:32:12 AUTHOR: BANDAR BARRAZA EXP COSIGNER: URGENCY: STATUS: COMPLETED Provider Visit: Patient Identifiers : Full Name Date of Reason for visit: Established Follow-Up Mode of Arrival: Ambulatory Allergy Review: VITAMIN B12 1000MCG, PANTOPRAZOLE, AMOXICILLIN, FLONASE NASAL SOLUTION PREGABALIN, METHOCARBAMOL Allergy list reviewed and remains current. Recent Vital Signs: Temperature: 97.8 F [36.6 C] (11/14/2024 09:30) Pulse: 86 (11/14/2024 09:30) Respiration: 18 (11/14/2024 09:30) B/P: 162/78 (11/14/2024 09:30) Pain: 4 (11/14/2024 09:30) Wt: 180 lb [81.65 kg] (11/14/2024 09:30) Ht: 62 in [157.5 cm] (11/14/2024 09:30) BMI: 33.0 POX: 97% (11/14/2024 09:30) Would you like to discuss any personal problem, family problem, alcohol use, drug use, or a mental or emotional illness? No My [facility] ([facility]), please select appointment type: Face to face: Yes- Done Contact provided Primary Care phone number and encouraged to call if any questions or concerns. Review that after hours nurse line ext.[phone] and emergency room are available 15/05 for patient use. Contact verbalized good understanding. Sexual Orientation - CP,L,N,P,PH,PS,S,U: The patient thinks of their sexual orientation as: Straight or Heterosexual Influenza Immunization - L,N,P,PH,U: Deferral / Refusal The patient declines to receive the recommended dose of seasonal influenza vaccine. Immunization: INFLUENZA, UNSPECIFIED FORMULATION Refusal Reason: PATIENT DECISION Patient refuses all immunization(s) in the FLU group Date Documented: 11/14/24 09:37 COVID-19 Immunization - L,N,P,PH,U: Refused Pfizer Monovalent COVID-19 vaccine Immunization: COVID-19 (PFIZER), MRNA, LNP-S, PF, ELSIE-SUCROSE, 30 MCG/0.3 ML (AGES 12+ YEARS) Refusal Reason: PATIENT DECISION Patient refuses all immunization(s) in the COVID-19 group Date Documented: 11/14/24 09:38 /tamera/ BANDAR BARRAZA LPN LICENSED PRACTICAL NURSE Signed: 11/14/2024 09:38 BANDAR BARRAZA [facility]
--- OUTSIDE RECORDS SUMMARY | 2025-03-22 21:59 | XMS_ITS | Continuity of Care Document ---
Author Name [facility] Organization [facility] Care Team Providers Care Coping Machine Assembler Name Role Phone [facility] Unavailable Unavailable Problems Combined list of problems from Department of Defense and [facility] Affairs facilities. It does not include entries that were removed or entered in error. Problem Status Onset Date Problem Type Date of Resolution Comments Source Arthritis Active Condition [facility] Bacterial cellulitis Active Condition [facility] Cervicalgia Active Condition [facility] Chronic obstructive lung disease Active Condition [facility] Chronic pain in female pelvis Active Condition [facility] Compartment syndrome Active Condition [facility] Depression Active Condition [facility] Family history of ischemic heart disease (SNOMED CT 142463815) Active Condition [facility] Fibromyalgia Active Condition [facility] Hypothyroidism Active Condition [facility] Insomnia Active Condition [facility] Intermittent palpitations Active Condition [facility] Iron deficiency Active Condition [facility] Irritable bowel syndrome characterized by alternating bowel habit Active Condition [facility] Kidney stone Active Condition [facility] Low back pain Active Condition [facility] Lumbar [facility]iculopathy Active Condition [facility] Mastodynia Active Condition [facility] Migraine (SNOMED CT 82239023) Active Condition [facility] Obesity (SCT 772463366) Active Condition Apr 16, 2024 Entered By: ANDREW BARRERA Comment: gastric bypass surgery 2022 [facility] Obstructive sleep apnea of adult Active Condition Jul 25, 2024 Entered By: ANDREW BARRERA Comment: cpap difficulty [facility] Overactive bladder Active Condition [facility] Poor pelvic muscle tone Active Condition [facility] Vitamin D deficiency Active Condition [facility] Abnormal uterine bleeding Inactive Condition 02/28/2020 [facility] Abnormal weight loss Inactive Condition 02/28/2020 [facility] Acne Inactive Condition 02/28/2020 [facility] Acute bronchitis Inactive Condition 02/28/2020 [facility] Chronic diarrhea Inactive Condition 02/28/2020 [facility] Compartment Syndrome, unspecified (ICD-9-CM 958.90) Inactive Condition 02/28/2020 [facility] Constipation Inactive Condition 02/28/[address] [facility] Cough (ICD-9-CM 786.2) Inactive Condition 02/24/2010 [facility] Depression * (ICD-9-CM 311./300.4) Inactive Condition 02/28/2020 [facility] Diabetes, Gestational * (ICD-9-CM 648.80) Inactive Condition 02/28/2020 [facility] Fever, unspecified (ICD-9-CM 780.60) Inactive Condition 02/24/2010 [facility] Gynecologic Exam Inactive Condition 02/24/2010 [facility] Hypothyroidism * (ICD-9-CM 244.9) Inactive Condition 02/28/2020 [facility] Migraine Inactive Condition 02/28/2020 [facility] Mild or unspecified pre-eclampsia (ICD-9-CM 642.40) Inactive Condition 02/28/2020 [facility] Neck Pain Inactive Condition 02/28/2020 [facility] Obesity * (ICD-9-CM 278.00) Inactive Condition 02/28/2020 [facility] Pain in back (SNOMED CT 629354431) Inactive Condition 02/28/2020 [facility] Pain in left lower limb Inactive Condition 02/28/2020 [facility] Pain in limb (ICD-9-CM 729.5) Inactive Condition 02/24/2010 [facility] Pharyngitis * (ICD-9-CM 462.) Inactive Condition 02/24/2010 [facility] Shoulder Injury (ICD-9-CM 912.8) Inactive Condition 02/28/2020 [facility] Shoulder Pain Inactive Condition 02/28/2020 [facility] Skin lesion Inactive Condition 02/28/2020 [facility] Vitamin B 12 Deficiency (ICD-9-CM 266.2) Inactive Condition 02/28/2020 [facility] Diagnosis: ICD-10-CM E61.1 Iron deficiency Active Diagnosis [facility] Diagnosis: ICD-10-CM F41.1 Generalized anxiety disorder Active Diagnosis [facility] Diagnosis: ICD-10-CM M79.602 Pain in left arm Active Diagnosis [facility] Diagnosis: ICD-10-CM M25.552 Pain in left hip Active Diagnosis [facility] Diagnosis: ICD-10-CM M13.0 Polyarthritis, unspecified Active Diagnosis [facility] Diagnosis: ICD-10-CM Z71.9 Counseling, unspecified Active Diagnosis [facility] Admit Reason: AGITATION, ANXIETY Active Diagnosis [facility] Diagnosis: ICD-10-CM F11.90 Opioid use, unspecified, uncomplicated Active Diagnosis [facility] Diagnosis: ICD-10-CM G44.211 Episodic tension-type headache, intractable Active Diagnosis [facility] Diagnosis: ICD-10-CM Z71.81 Spiritual or methodist counseling Active Diagnosis [facility] Diagnosis: ICD-10-CM M54.32 Sciatica, left side Active Diagnosis [facility] Diagnosis: ICD-10-CM F33.1 Major depressive disorder, recurrent, moderate Active Diagnosis [facility] Diagnosis: ICD-10-CM M79.669 Pain in unspecified lower leg Active Diagnosis [facility] Admit Reason: INTRACTABLE SCIATICA Active Diagnosis [facility] Diagnosis: ICD-10-CM G89.29 Other chronic pain Active Diagnosis [facility] Diagnosis: ICD-10-CM M54.50 Low back pain, unspecified Active Diagnosis [facility] Diagnosis: ICD-10-CM M54.16 Radiculopathy, lumbar region Active Diagnosis [facility] Diagnosis: ICD-10-CM M79.605 Pain in left leg Active Diagnosis [facility] Diagnosis: ICD-10-CM R53.81 Other malaise Active Diagnosis [facility] Diagnosis: ICD-10-CM M79.7 Fibromyalgia Active Diagnosis [facility] Diagnosis: ICD-10-CM M46.1 Sacroiliitis, not elsewhere classified Active Diagnosis [facility] Diagnosis: ICD-10-CM R10.10 Upper abdominal pain, unspecified Active Diagnosis [facility] Diagnosis: ICD-10-CM Z91.89 Oth personal risk factors, not elsewhere classified Active Diagnosis [facility] Diagnosis: ICD-10-CM R93.2 Abnormal findings on dx imaging of liver and biliary tract Active Diagnosis [facility] Diagnosis: ICD-10-CM Z23 Encounter for immunization Active Diagnosis [facility] Diagnosis: ICD-10-CM G44.209 Tension-type headache, unspecified, not intractable Active Diagnosis [facility] Diagnosis: ICD-10-CM M54.59 Other low back pain Active Diagnosis [facility] Diagnosis: ICD-10-CM Z51.89 Encounter for other specified aftercare Active Diagnosis [facility] Admit Reason: LEFT LEG PAIN Active Diagnosis [facility] Diagnosis: ICD-10-CM Z98.84 Bariatric surgery status Active Diagnosis [facility] Diagnosis: ICD-10-CM M79.662 Pain in left lower leg Active Diagnosis [facility] Medications Combined list of outpatient medications from Department of Defense and [facility] Affairs facilities.Medications provided include 1) outpatient medications from the last 15 months, and 2) patient-reported medications. Medication Details Route Status Patient Instructions Prescription Expires Prescription Number Last Dispense Date Ordering Provider Order Date Order Qty Source ACETAMINOPH EN 500MG TAB TAKE ONE TABLET BY MOUTH FOUR TIMES A DAY NEEDED FOR PAIN CAUTION: DO NOT EXCEED 4000MG PER DAY ACETAMIN OPHEN (APAP) FROM ALL MEDS. ORAL 01/30/2024 [id number] MATILDA MATHUR 2023 120 [facility] ALPRAZOLAM 0.25MG TAB TAKE ONE TABLET BY MOUTH THREE TIMES A DAY NEEDED FOR ANXIETY ORAL DISCONT INUED 05/10/2024 [id number] 4 ABIRUPERTNDA NI,LACHMA N 2023 90 [facility] N ALPRAZOLAM 0.25MG TAB TAKE ONE TABLET BY MOUTH THREE TIMES A DAY NEEDED FOR ANXIETY ORAL 05/16/2024 [id number] 4 ABICHANDA NI,LACHMA N 2023 90 [facility] CODEINE 30MG/ACETAM INOPHEN 300MG TAB TAKE 1 TABLET BY MOUTH EVERY 6 HOURS NEEDED FOR PAIN CAUTION: DO NOT EXCEED 4000MG PER DAY ACETAMIN OPHEN (APAP) FROM ALL MEDS. ORAL ACTIVE 03/30/2025 [id number] 5 BARRERA,A RMIDA A 2024 120 [facility] CODEINE 30MG/ACETAM INOPHEN 300MG TAB TAKE 1 TABLET BY MOUTH EVERY 6 HOURS NEEDED FOR PAIN CAUTION: DO NOT EXCEED 4000MG PER DAY ACETAMIN OPHEN (APAP) FROM ALL MEDS. ORAL DISCONT INUED 03/06/2025 [id number] 5 BARRERA,A RMIDA A 2024 120 [facility] CODEINE 30MG/ACETAM INOPHEN 300MG TAB TAKE 1 TABLET BY MOUTH EVERY 6 HOURS NEEDED FOR PAIN CAUTION: DO NOT EXCEED 4000MG PER DAY ACETAMIN OPHEN (APAP) FROM ALL MEDS. ORAL DISCONT INUED 12/08/2024 [id number] 5 DEJA KU 2024 15 [facility] DIVISIO N CODEINE 30MG/ACETAM INOPHEN 300MG TAB TAKE 1 TABLET BY MOUTH EVERY 6 HOURS NEEDED CAUTION: DO NOT EXCEED 4000MG PER DAY ACETAMIN OPHEN (APAP) FROM ALL MEDS. ORAL 01/18/2025 [id number] 5 BARRERA,A RMIDA A 2024 120 [facility] CODEINE 30MG/ACETAM INOPHEN 300MG TAB TAKE 1 TABLET BY MOUTH EVERY 6 HOURS NEEDED FOR PAIN CAUTION: DO NOT EXCEED 4000MG PER DAY ACETAMIN OPHEN (APAP) FROM ALL MEDS. ORAL 12/14/2024 [id number] 5 BARRERA,A RMIDA A 2024 120 [facility] CYANOCOBALA MIN 1000MCG/ML INJ INJECT 1000MCG/ 1ML INTRAMUS CULARLY EVERY 2 WEEKS FOR VITAMIN B12 SUPPLEME NTATION INTRAM USCULA R ACTIVE 10/29/2025 [id number] 5 BARRERA,A RMIDA A 2024 6 [facility] DIVISIO N CYANOCOBALA MIN 1000MCG/ML INJ INJECT 1000MCG/ 1ML INTRAMUS CULARLY EVERY MONTH FOR VITAMIN B12 SUPPLEME NTATION INTRAM USCULA R DISCONT INUED 11/24/2024 [id number] 4 BARRERA,A RMIDA A 2023 3 [facility] CYANOCOBALA MIN 1000MCG/ML INJ INJECT 1000MCG/ 1ML INTRAMUS CULARLY MONDAY@1 300 FOR VITAMIN B12 SUPPLEME NTATION WEEKLY FOR 7 WEEKS, TAKE EVERY MONDAY INTRAM USCULA R 09/08/2024 [id number] ABBEY FELIZ EF H 2023 7 [facility] DIVISIO N CYCLOBENZAP RINE HCL 10MG TAB TAKE ONE TABLET BY MOUTH THREE TIMES A DAY NEEDED FOR MUSCLE SPASM MAY CAUSE DROWSINE SS. DO NOT DRINK ALCOHOL WHILE TAKING THIS MEDICATI ON. ORAL DISCONT INUED BY PROVIDE R 03/01/2025 [id number] 4 BARRERA,A RMIDA A [address] [place] [address] DIVISIO N DULOXETINE HCL 30MG CAP,EC TAKE ONE CAPSULE BY MOUTH ONCE A DAY DO NOT ABRUPTLY DISCONTI NUE MEDICATI ON. TO BE TAKEN ALONG WITH 60MG FOR TOTAL OF 90MG DAILY ORAL ACTIVE 01/03/2026 [id number] 5 [facility], NU [address] [place] [address] DIVISIO N DULOXETINE HCL 30MG CAP,EC TAKE ONE CAPSULE BY MOUTH ONCE A DAY DO NOT ABRUPTLY DISCONTI NUE MEDICATI ON. TO BE TAKEN ALONG WITH 60MG FOR TOTAL OF 90MG DAILY ORAL DISCONT INUED BY PROVIDE R 10/30/2025 [id number] 5 [facility] NU [address] [place] [address] DIVISIO N DULOXETINE HCL 30MG CAP,EC TAKE ONE CAPSULE BY MOUTH ONCE A DAY DO NOT ABRUPTLY DISCONTI NUE MEDICATI ON. TO BE TAKEN ALONG WITH 60MG FOR TOTAL OF 90MG DAILY ORAL DISCONT INUED 10/18/2024 [id number] 4 TRINI,YOUS EF H [address] [place] [address] DIVISIO N DULOXETINE HCL 30MG CAP,EC TAKE ONE CAPSULE BY MOUTH ONCE A DAY DO NOT ABRUPTLY DISCONTI NUE MEDICATI ON. TO BE TAKEN ALONG WITH 60MG FOR TOTAL OF 90MG DAILY ORAL DISCONT INUED 08/20/2024 [id number] 4 ZAHED,TAR A [address] [place] [address] DIVISIO N DULOXETINE HCL 60MG CAP,EC TAKE ONE CAPSULE BY MOUTH ONCE A DAY DO NOT ABRUPTLY DISCONTI NUE MEDICATI ON. TO BE TAKEN ALONG WITH 30MG FOR TOTAL OF 90MG DAILY ORAL ACTIVE 01/03/2026 [id number] 5 [facility] NU [address] [place] [address] DIVISIO N DULOXETINE HCL 60MG CAP,EC TAKE ONE CAPSULE BY MOUTH ONCE A DAY DO NOT ABRUPTLY DISCONTI NUE MEDICATI ON. TO BE TAKEN ALONG WITH 30MG FOR TOTAL OF 90MG DAILY ORAL DISCONT INUED 05/23/2025 [id number] 5 ZAHED,TAR A 2023 90 [facility] DIVISIO N DULOXETINE HCL 60MG CAP,EC TAKE ONE CAPSULE BY MOUTH ONCE A DAY DO NOT ABRUPTLY DISCONTI NUE MEDICATI ON. ORAL DISCONT INUED (EDIT) 06/27/2024 [id number] 4 BARRERA,A RMIDA A 2022 90 [facility] FOLIC ACID 1MG TAB TAKE ONE TABLET BY MOUTH ONCE A DAY FOR FOLIC ACID SUPPLEME NTATION ORAL ACTIVE 07/21/2025 [id number] ABBEY FELIZ EF H 2023 100 [facility] DIVISIO N GABAPENTIN 300MG CAP TAKE ONE CAPSULE BY MOUTH THREE TIMES A DAY NEEDED FOR PAIN ORAL ACTIVE 03/06/2026 [id number] 5 BARRERA,A RMIDA A 2024 270 [facility] DIVISIO N GABAPENTIN 300MG CAP TAKE ONE CAPSULE BY MOUTH THREE TIMES A DAY NEEDED FOR PAIN ORAL DISCONT INUED 01/26/2025 [id number] 5 BARRERA,A RMIDA A 2024 270 [facility] DIVISIO N GABAPENTIN 300MG CAP TAKE ONE CAPSULE BY MOUTH AT BEDTIME RESTLESS LEG SYNDROME ORAL 10/18/2024 [id number] ABBEY FELIZ EF H 2023 90 [facility] DIVISIO N HYDROCODONE 10MG/ACETAM INOPHEN 325MG TAB TAKE 1 TABLET BY MOUTH EVERY 6 HOURS NEEDED FOR SEVERE PAIN CAUTION: DO NOT EXCEED 4000MG PER DAY ACETAMIN OPHEN (APAP) FROM ALL MEDS. ORAL 03/30/2024 [id number] 4 BARRERA,A RMIDA A 2023 12 [facility] DIVISIO N HYDROCODONE 5MG/ACETAMI NOPHEN 325MG TAB TAKE 1 TABLET BY MOUTH EVERY 6 HOURS NEEDED FOR SEVERE PAIN CAUTION: DO NOT EXCEED 4000MG PER DAY ACETAMIN OPHEN (APAP) FROM ALL MEDS. ORAL DISCONT INUED 02/16/2025 [id number] 5 BARRERA,A RMIDA A 2024 20 [facility] HYDROCODONE 5MG/ACETAMI NOPHEN 325MG TAB TAKE 1 TABLET BY MOUTH EVERY 6 HOURS NEEDED FOR SEVERE PAIN CAUTION: DO NOT EXCEED 4000MG PER DAY ACETAMIN OPHEN (APAP) FROM ALL MEDS. ORAL DISCONT INUED BY PROVIDE R 08/07/2024 [id number] 4 ARIS CUMMINGS 2023 8 [facility] DIVISIO N HYDROCODONE 5MG/ACETAMI NOPHEN 325MG TAB TAKE 1 TABLET BY MOUTH EVERY 6 HOURS NEEDED FOR PAIN CAUTION: DO NOT EXCEED 4000MG PER DAY ACETAMIN OPHEN (APAP) FROM ALL MEDS. ORAL DISCONT INUED 08/07/2024 [id number] 4 BARRERA,A RMIDA A 2023 20 [facility] DIVISIO N HYDROXYZINE HCL 25MG TAB TAKE ONE TABLET BY MOUTH THREE TIMES A DAY NEEDED FOR ANXIETY *MAY CAUSE DROWSINE SS* ORAL DISCONT INUED BY PROVIDE R 01/16/2025 [id number] 5 RABIA GIRARD 2024 20 [facility] DIVISIO N IBUPROFEN 400MG TAB TAKE ONE TABLET BY MOUTH FOUR TIMES A DAY NEEDED FOR PAIN TAKE WITH FOOD. ORAL 01/30/2024 [id number] 4 MATILDA MATHUR 2023 120 [facility] DIVISIO N LEVOTHYROXI NE NA 175MCG TAB TAKE ONE TABLET BY MOUTH EVERY MORNING BEFORE A MEAL FOR HYPOTHYR OIDISM TAKE 30 MINUTES BEFORE FOOD. TAKE SEPARATE LY FROM ALL OTHER MEDICATI ONS. ORAL ACTIVE 06/11/2025 [id number] 5 BARRERA,A RMIDA A 2023 90 [facility] DIVISIO N LIDOCAINE 5% OINT,TOP APPLY LIGHTLY TO AFFECTED AREA(S) TWICE DAILY NEEDED FOR PAIN TOPICA L ACTIVE 12/11/2025 [id number] 5 BARRERA,A RMIDA A 2024 70 [facility] LIDOCAINE 5% OINT,TOP APPLY SPARINGL Y TO AFFECTED AREA(S) ONCE A DAY NEEDED FOR PAIN (EXTERNA L USE ONLY) (WASH HANDS THOROUGH LY AFTER USE) TOPICA L 11/24/2024 [id number] 5 BARRERAA RMIDA A 2023 35 [facility] METFORMIN HCL 1000MG TAB TAKE ONE-HALF TABLET BY MOUTH TWICE A DAY WITH MEALS TAKE WITH FOOD. AVOID ALCOHOL. DISCONTI NUE BEFORE GETTING XRAY DYE. ORAL DISCONT INUED BY PROVIDE R 01/31/2025 [id number] 4 Renata BARRERA RMIDA A 2023 90 [facility] DIVISIO N METHYLPREDN ISOLONE 4MG TAB DOSEPAK,21 TAKE TABLETS BY MOUTH DIRECTED TAKE 6 TABLETS BY MOUTH ON DAY ONE, THEN DECREASE BY ONE TABLET DAILY UNTIL GONE. TAKE WITH FOOD. ORAL 08/07/2024 [id number] 4 Renata BARRERA RMIDA A 2023 1 [facility] DIVISIO N MORPHINE SO4 15MG TAB TAKE ONE-HALF TABLET BY MOUTH EVERY 6 HOURS NEEDED FOR SEVERE PAIN MAY CAUSE CONSTIPA TION. ORAL 03/27/2024 [id number] 4 ELSTER,ST EVEN 2023 4 [facility] DIVISIO N NALOXONE HCL 4MG/SPRAY SOLN,SPRAY, NASAL USE 1 SPRAY (4MG) INTO ONE NOSTRIL ONLY ONE-TIME FOR OPIOID OVERDOSE DO NOT PRIME NASAL SPRAY. SPRAY ONE DOSE IN ONE NOSTRIL, GIVE ADDITION AL DOSE IF PATIENT DOES NOT START BREATHIN G WITHIN 2-3 MINUTES OR STOPS BREATHIN G AGAIN. CALL 911. IF USED, NOTIFY PROVIDER . NASAL 02/12/2025 [id number] 5 BARRERARenata RMIDA A 2024 2 [facility] NALOXONE HCL 8MG/SPRAY SOLN,SPRAY, NASAL USE 1 SPRAY (8MG) INTO ONE NOSTRIL ONLY ONE-TIME NEEDED DO NOT PRIME NASAL SPRAY. SPRAY ONE DOSE IN ONE NOSTRIL, GIVE ADDITION AL DOSE IF PATIENT DOES NOT START BREATHIN G WITHIN 2-3 MINUTES OR STOPS BREATHIN G AGAIN. CALL 911. IF USED, NOTIFY PROVIDER . NASAL 03/27/2024 [id number] 4 CARL,ST EVEN 2023 2 [facility] DIVISIO N ONDANSETRON HCL 4MG TAB,ORALLY DISINTEGRAT ING TAKE ONE TABLET UNDER THE TONGUE EVERY EIGHT(8) HOURS NEEDED FOR NAUSEA/V OMITING SUBLIN GUAL 03/19/2025 [id number] 5 BARRERARenata RMIDA A 2024 30 [facility] DIVISIO N ONDANSETRON HCL 4MG TAB,ORALLY DISINTEGRAT ING TAKE ONE TABLET UNDER THE TONGUE EVERY EIGHT(8) HOURS NEEDED FOR NAUSEA/V OMITING SUBLIN GUAL 01/30/2024 [id number] 4 ALICIA MENDOZA 2023 10 [facility] N ONDANSETRON HCL 8MG TAB TAKE ONE-HALF TABLET BY MOUTH EVERY 6 HOURS NEEDED FOR NAUSEA/V OMITING ORAL 08/07/2024 [id number] 4 ARIS CUMMINGS 2023 12 [facility] DIVISIO N OXYCODONE HCL 5MG TAB TAKE ONE TABLET BY MOUTH EVERY 6 HOURS NEEDED FOR ACUTE PAIN. MAY CAUSE CONSTIPA TION ORAL DISCONT INUED BY PROVIDE R 08/19/2024 [id number] ABBEY FELIZ EF H 2023 6 [facility] DIVIS N PRAMIPEXOLE DIHYDROCHLO RIDE 1.5MG TAB TAKE ONE TABLET BY MOUTH TWICE A DAY FOR RESTLESS LEG SYNDROME ORAL DISCONT INUED BY PROVIDE R 11/24/2024 [id number] 4 BARRERA,A RMIDA A 2023 180 [facility] PRAMIPEXOLE DIHYDROCHLO RIDE 1MG TAB TAKE ONE-HALF TABLET BY MOUTH TWICE A DAY FOR RESTLESS LEG SYNDROME START TAKING 1ST DOSE TONIGHT AND THEN LAST DOSE 07/22 IN THE EVENING ORAL DISCONT INUED BY PROVIDE R 08/19/2024 [id number] ABBEY FELIZ H 2023 3 [facility] DIVISIO N PRAZOSIN HCL 1MG CAP TAKE ONE CAPSULE BY MOUTH AT BEDTIME FOR NIGHTMAR ES MAY CAUSE DIZZINES S OR DROWSINE SS. ORAL 08/19/2024 [id number] 4 ABBEY FELIZ EF H 2023 30 [facility] DIVISIO N PREDNISONE 20MG TAB TAKE TWO TABLETS BY MOUTH EVERY MORNING TAKE WITH FOOD OR MILK. ORAL 03/27/2024 [id number] 4 CARLST MURO 2023 8 [facility] DIVISIO N PROPRANOLOL HCL 10MG TAB TAKE ONE TABLET BY MOUTH THREE TIMES A DAY NEEDED ORAL ACTIVE 04/02/2025 [id number] 5 HEMALBETHRenata GONZALEZDAMON NU 2024 270 [facility] DIVISIO N TIZANIDINE HCL 4MG TAB TAKE ONE TABLET BY MOUTH THREE TIMES A DAY NEEDED FOR SPASTICI TY ORAL ACTIVE 11/30/2025 [id number] 5 BARRERA,A RMIDA A 2024 90 [facility] DIVISIO N TIZANIDINE HCL 4MG TAB TAKE ONE TABLET BY MOUTH THREE TIMES A DAY NEEDED FOR SPASTICI TY ORAL DISCONT INUED 05/22/2025 [id number] 4 BARRERA,A RMIDA A 2023 90 [facility] DIVISIO N TIZANIDINE HCL 4MG TAB TAKE ONE TABLET BY MOUTH THREE TIMES A DAY NEEDED FOR SPASTICI TY ORAL DISCONT INUED 05/22/2024 [id number] 4 BARRERA,A RMIDA A 2023 30 [facility] TRAMADOL HCL 50MG TAB TAKE 1 TABLET BY MOUTH FOUR TIMES A DAY NEEDED FOR PAIN ORAL DISCONT INUED BY PROVIDE R 08/28/2024 [id number] 4 BARRERA,A RMIDA A 2023 20 [facility] DIVISIO N TRAMADOL HCL 50MG TAB TAKE 1 TABLET BY MOUTH FOUR TIMES A DAY NEEDED FOR PAIN ORAL DISCONT INUED BY PROVIDE R 11/27/2024 [id number] 5 BARRERA,A RMIDA A 2024 20 [facility] DIVISIO N TRAZODONE HCL 100MG TAB TAKE ONE AND ONE-HALF TABLETS BY MOUTH AT BEDTIME NEEDED ORAL ACTIVE 01/03/2026 [id number] 5 GARRISON GONZALEZBI NU 2024 135 [facility] DIVISIO N TRAZODONE HCL 100MG TAB TAKE ONE TABLET BY MOUTH AT BEDTIME NEEDED FOR INSOMNIA ORAL DISCONT INUED (EDIT) 01/26/2025 [id number] 5 BARRERA,A RMIDA A 2023 90 [facility] DIVISIO N TRIAMCINOLO NE ACETONIDE 0.1% CREAM,TOP APPLY SPARINGL Y TO AFFECTED AREA(S) TWICE A DAY FOR CONTACT DERMATIT IS (EXTERNA L USE ONLY) TOPICA L 11/16/2024 [id number] 4 BARRERA,A RMIDA A 2023 80 [facility]IO N Allergies, Adverse Reactions, Alerts Combined list of allergies from Department of Defense and Veterans Affairs facilities. It does not include entries that were removed or entered in error. Substance Category Reaction Severity Reaction type Status Date Reported Comments Source AMOXICILLIN Propensity to adverse reactions to drug (finding) Urticaria MODERATE active 9 [facility] FLONASE NASAL SOLUTION Propensity to adverse reactions to drug (finding) Burning sensation of nose active 0 [facility] METHOCARBAMO L Propensity to adverse reactions to drug (finding) Headache active 4 [facility] PANTOPRAZOLE Propensity to adverse reactions to drug (finding) Urticaria active 6 [facility] PREGABALIN Propensity to adverse reactions to drug (finding) Drowsy active 4 [facility] VITAMIN B12 1000MCG Propensity to adverse reactions to drug (finding) Urticaria active 1 [facility] Immunizations Combined list of available immunizations from the Department of [facility] and [facility] facilities. Immunization Series Date Given Administered By Site Reaction Lot Number CVX Code Drug Reliability Technician Status Comments Source COVID-19 (PFIZER), MRNA, LNP-S, PF, 30 MCG/0.3 ML DOSE 2 2020 208 complet ed [facility] COVID-19 (ShopText), MRNA, LNP-S, PF, 30 MCG/0.3 ML DOSE 1 2020 208 complet ed [facility] INFLUENZA, INJECTABLE, QUADRIVALENT, PRESERVATIVE FREE 2016 150 complet ed [facility] INFLUENZA, SEASONAL, INJECTABLE, PRESERVATIVE FREE 2014 140 complet ed [facility] INFLUENZA, UNSPECIFIED FORMULATION 2012 88 complet ed [facility] INFLUENZA, UNSPECIFIED FORMULATION 2009 88 complet ed [facility] TDAP 2009 115 complet ed Right Deltoid [facility] INFLUENZA, UNSPECIFIED FORMULATION 2006 88 complet ed [facility] N Results Combined list of recent chemistry, hematology and other laboratory results from [employer], ranging from 15 months to all on record, depending upon the facility. Order Name Results Value Reference Range Date Interpretation Specimen Comments Source CBC LEUKOCYTES [#/VOLUME] IN BLOOD BY AUTOMATED COUNT 5.6 10*3/uL 3.6 - 11.2 01/07 Specimen Type: BLOOD No comment entered. Ordering Provider: TANYA TAPIA OR Penelope Report Released Date/Time: Oct 22, 2024 02:14 PM Reporting Lab: [address] [id number] Performing Lab: [address] [id number] [facility] CBC ERYTHROCYT ES [#/VOLUME] IN BLOOD BY AUTOMATED COUNT 4.59 10*6/uL 3.60 - 5.00 01/07 Specimen Type: BLOOD No comment entered. Ordering Provider: TANYA TAPIA Report Released Date/Time: Oct 22, 2024 02:14 PM Reporting Lab: [address] [id number] Performing Lab: [address] [id number] [facility] CBC HEMOGLOBIN [MASS/VOLU ME] IN BLOOD 14.0 g/dL 11.0 - 14.9 01/07 Specimen Type: BLOOD No comment entered. Ordering Provider: TANYA TAPIA Report Released Date/Time: Oct 22, 2024 02:14 PM Reporting Lab: [address] [address] Performing Lab: [address] [address] [facility] CBC HEMATOCRIT [VOLUME FRACTION] OF BLOOD 41.1 32.6 - 43.4 01/07 Specimen Type: BLOOD No comment entered. Ordering Provider: TANYA TAPIA Report Released Date/Time: Oct 22, 2024 02:14 PM Reporting Lab: [address] [address] Performing Lab: [address] [address] [facility] CBC MCV [ENTITIC VOLUME] BY AUTOMATED COUNT 89.5 fL 80.0 - 100.0 01/07 Specimen Type: BLOOD No comment entered. Ordering Provider: TANYA TAPIA Report Released Date/Time: Oct 22, 2024 02:14 PM Reporting Lab: [address] [address] Performing Lab: [address] [address] [facility] CBC MCH [ENTITIC MASS] BY AUTOMATED COUNT 30.5 pg 27.0 - 34.0 01/07 Specimen Type: BLOOD No comment entered. Ordering Provider: TANYA TAPIA Report Released Date/Time: Oct 22, 2024 02:14 PM Reporting Lab: [address] [address] Performing Lab: [address] [address] [facility] CBC MCHC [MASS/VOLU ME] BY AUTOMATED COUNT 34.1 g/dL 33.0 - 36.0 01/07 Specimen Type: BLOOD No comment entered. Ordering Provider: TANYA TAPIA Report Released Date/Time: Oct 22, 2024 02:14 PM Reporting Lab: [address] [address] Performing Lab: [place] [address] [facility] [address] [facility] CBC PLATELETS [#/VOLUME] IN BLOOD BY AUTOMATED COUNT 296 10*3/uL 150 - 400 01/07 Specimen Type: BLOOD No comment entered. Ordering Provider: TANYA TAPIA Report Released Date/Time: Oct 22, 2024 02:14 PM Reporting Lab: [address] [address] Performing Lab: [address] [address] [facility] CBC PLATELET MEAN VOLUME [ENTITIC VOLUME] IN BLOOD BY AUTOMATED COUNT 9.9 fL 7.5 - 11.2 01/07 Specimen Type: BLOOD No comment entered. Ordering Provider: TANYA TAPIA Report Released Date/Time: Oct 22, 2024 02:14 PM Reporting Lab: [facility] [address] [place] [address] Performing Lab: [facility] [address] [place] [address] [facility] CBC ERYTHROCYT E DISTRIBUTI ON WIDTH [RATIO] BY AUTOMATED COUNT 12.6 11.8 - 15.1 01/07 Specimen Type: BLOOD No comment entered. Ordering Provider: TANYA TAPIA Report Released Date/Time: Oct 22, 2024 02:14 PM Reporting Lab: [address] [address] Performing Lab: [place] [address] [facility] [address] [facility] CBC LYMPHOCYTE S/100 LEUKOCYTES IN BLOOD BY AUTOMATED COUNT 38 01/07 Specimen Type: BLOOD No comment entered. Ordering Provider: TANYA TAPIA Report Released Date/Time: Oct 22, 2024 02:14 PM Reporting Lab: [facility] [address] Performing Lab: [address] [address] [facility] CBC MONOCYTES/ 100 LEUKOCYTES IN BLOOD BY AUTOMATED COUNT 7 01/07 Specimen Type: BLOOD No comment entered. Ordering Provider: TANYA TAPIA Report Released Date/Time: Oct 22, 2024 02:14 PM Reporting Lab: [facility] [address] [place] [address] Performing Lab: [place] [address] [facility] [address] [facility] CBC NEUTROPHIL S/100 LEUKOCYTES IN BLOOD BY AUTOMATED COUNT 52 01/07 Specimen Type: BLOOD No comment entered. Ordering Provider: TANYA TAPIA Report Released Date/Time: Oct 22, 2024 02:14 PM Reporting Lab: [facility] [address] [facility] [address] Performing Lab: [facility] [address] [facility] [address] [facility] CBC EOSINOPHIL S/100 LEUKOCYTES IN BLOOD BY AUTOMATED COUNT 2 01/07 Specimen Type: BLOOD No comment entered. Ordering Provider: TANYA TAPIA OR [place] Report Released Date/Time: Oct 22, 2024 02:14 PM Reporting Lab: [facility] [address] [facility] [address] Performing Lab: [facility] [address] [facility] [address] [facility] CBC BASOPHILS/ 100 LEUKOCYTES IN BLOOD BY AUTOMATED COUNT 1 01/07 Specimen Type: BLOOD No comment entered. Ordering Provider: TANYA TAPIA OR [place] Report Released Date/Time: Oct 22, 2024 02:14 PM Reporting Lab: [place] [address] [facility] [address] Performing Lab: [facility] [address] [facility] [address] [facility] CBC LYMPHOCYTE S [#/VOLUME] IN BLOOD BY AUTOMATED COUNT 2.11 10*3/uL 0.77 - 4.50 01/07 Specimen Type: BLOOD No comment entered. Ordering Provider: TANYA TAPIA OR [place] Report Released Date/Time: Oct 22, 2024 02:14 PM Reporting Lab: [facility] [address] [facility] [address] Performing Lab: [facility] [address] [facility] [address] [facility] CBC MONOCYTES [#/VOLUME] IN BLOOD BY AUTOMATED COUNT 0.38 10*3/uL 0.19 - 0.80 01/07 Specimen Type: BLOOD No comment entered. Ordering Provider: TANYA TAPIA OR [place]elope Report Released Date/Time: Oct 22, 2024 02:14 PM Reporting Lab: [place] [address] [facility] [address] Performing Lab: [place] [address] [facility] [address] [facility] CBC NEUTROPHIL S [#/VOLUME] IN BLOOD BY AUTOMATED COUNT 2.90 10*3/uL 2.10 - 8.00 01/07 Specimen Type: BLOOD No comment entered. Ordering Provider: TANYA TAPIA OR [place] Report Released Date/Time: Oct 22, 2024 02:14 PM Reporting Lab: [address] [address] Performing Lab: [address] [address] [facility] CBC EOSINOPHIL S [#/VOLUME] IN BLOOD BY AUTOMATED COUNT 0.13 10*3/uL 0.00 - 0.60 01/07 Specimen Type: BLOOD No comment entered. Ordering Provider: TANYA TAPIA OR [place] Report Released Date/Time: Oct 22, 2024 02:14 PM Reporting Lab: [address] [address] Performing Lab: [address] [phone] [place] [address] CBC BASOPHILS [#/VOLUME] IN BLOOD BY AUTOMATED COUNT 0.06 10*3/uL 0.00 - 0.20 01/07 Specimen Type: BLOOD No comment entered. Ordering Provider: TANYA TAPIA OR [place] Report Released Date/Time: Oct 22, 2024 02:14 PM Reporting Lab: [address] [address] Performing Lab: [address] [phone] [place] [address] FERRITIN FERRITIN [MASS/VOLU ME] IN SERUM OR PLASMA 174.43 ng/mL 10 - 01/07 Specimen Type: SERUM No comment entered. Ordering Provider: TANYA TAPIA OR [place] Report Released Date/Time: Oct 22, 2024 02:14 PM Reporting Lab: [address] [address] Performing Lab: [facility] [address] [facility] [address] [facility] IRON/TIB C PROFILE IRON BINDING CAPACITY [MASS/VOLU ME] IN SERUM OR PLASMA 323 ug/dL 250 - 450 01/07 Specimen Type: SERUM No comment entered. Ordering Provider: TANYA TAPIA OR [place] Report Released Date/Time: Oct 22, 2024 02:14 PM Reporting Lab: [place] [address] [facility] [address] Performing Lab: [place] [address] [facility] [address] [facility] IRON/TIB C PROFILE TRANSFERRI N [MASS/VOLU ME] IN SERUM OR PLASMA 258 mg/dL 173 - 360 01/07 Specimen Type: SERUM No comment entered. Ordering Provider: TANYA TAPIA OR [place] Report Released Date/Time: Oct 22, 2024 02:14 PM Reporting Lab: [place] [address] [facility] [address] Performing Lab: [address] [address] [facility] IRON/TIB C PROFILE IRON SATURATION [MASS FRACTION] IN SERUM OR PLASMA 38 20 - 50 01/07 Specimen Type: SERUM No comment entered. Ordering Provider: TANYA TAPIA OR [place] Report Released Date/Time: Oct 22, 2024 02:14 PM Reporting Lab: [place] [address] [facility] [address] Performing Lab: [place] [address] [facility] [address] [facility] IRON/TIB C PROFILE IRON [MASS/VOLU ME] IN SERUM OR PLASMA 122 ug/dL 50 - 170 01/07 Specimen Type: SERUM No comment entered. Ordering Provider: TANYA TAPIA OR [place] Report Released Date/Time: Oct 22, 2024 02:14 PM Reporting Lab: [place] [address] [facility] [address] Performing Lab: [facility] [address] [facility] [address] [facility] CBC LEUKOCYTES [#/VOLUME] IN BLOOD BY AUTOMATED COUNT 7.5 10*3/uL 3.6 - 11.2 12/17 Specimen Type: BLOOD No comment entered. Ordering Provider: VICTOR M HUGO Report Released Date/Time: Dec 17, 2024 06:44 PM Reporting Lab: [place] [address] [address] [facility] [address] Performing Lab: [place] [address] [facility] [address] [facility] CBC ERYTHROCYT ES [#/VOLUME] IN BLOOD BY AUTOMATED COUNT 4.79 10*6/uL 3.60 - 5.00 12/17 Specimen Type: BLOOD No comment entered. Ordering Provider: VICTOR M HUGO Report Released Date/Time: Dec 17, 2024 06:44 PM Reporting Lab: [place] [address] [address] [facility] [address] Performing Lab: [place] [address] [facility] [address] [facility] CBC HEMOGLOBIN [MASS/VOLU ME] IN BLOOD 14.5 g/dL 11.0 - 14.9 12/17 Specimen Type: BLOOD No comment entered. Ordering Provider: VICTOR M HUGO Report Released Date/Time: Dec 17, 2024 06:44 PM Reporting Lab: [place] [address] [address] [facility] [address] Performing Lab: [place] [address] [facility] [address] [facility] CBC HEMATOCRIT [VOLUME FRACTION] OF BLOOD 43.1 32.6 - 43.4 12/17 Specimen Type: BLOOD No comment entered. Ordering Provider: VICTOR M HUGO Report Released Date/Time: Dec 17, 2024 06:44 PM Reporting Lab: [place] [address] [facility] [address] Performing Lab: [address] [address] [facility] CBC MCV [ENTITIC VOLUME] BY AUTOMATED COUNT 90.0 fL 80.0 - 100.0 12/17 Specimen Type: BLOOD No comment entered. Ordering Provider: VICTOR M HUGO Report Released Date/Time: Dec 17, 2024 06:44 PM Reporting Lab: [address] [address] Performing Lab: [address] [address] [facility] CBC MCH [ENTITIC MASS] BY AUTOMATED COUNT 30.3 pg 27.0 - 34.0 12/17 Specimen Type: BLOOD No comment entered. Ordering Provider: VICTOR M HUGO Report Released Date/Time: Dec 17, 2024 06:44 PM Reporting Lab: [address] [address] Performing Lab: [address] [address] [facility] CBC MCHC [MASS/VOLU ME] BY AUTOMATED COUNT 33.6 g/dL 33.0 - 36.0 12/17 Specimen Type: BLOOD No comment entered. Ordering Provider: VICTOR M HUGO Report Released Date/Time: Dec 17, 2024 06:44 PM Reporting Lab: [address] [address] Performing Lab: [address] [address] [facility] CBC PLATELETS [#/VOLUME] IN BLOOD BY AUTOMATED COUNT 312 10*3/uL 150 - 400 12/17 Specimen Type: BLOOD No comment entered. Ordering Provider: VICTOR M HUGO Report Released Date/Time: Dec 17, 2024 06:44 PM Reporting Lab: [place] [address] [address] [facility] [address] Performing Lab: [place] [address] [facility] [address] [facility] CBC PLATELET MEAN VOLUME [ENTITIC VOLUME] IN BLOOD BY AUTOMATED COUNT 10.5 fL 7.5 - 11.2 12/17 Specimen Type: BLOOD No comment entered. Ordering Provider: VICTOR M HUGO Report Released Date/Time: Dec 17, 2024 06:44 PM Reporting Lab: [place] [address] [place] [phone] Performing Lab: [place] [address] [place] [phone] CBC ERYTHROCYT E DISTRIBUTI ON WIDTH [RATIO] BY AUTOMATED COUNT 12.2 11.8 - 15.1 12/17 Specimen Type: BLOOD No comment entered. Ordering Provider: VICTOR M HUGO Report Released Date/Time: Dec 17, 2024 06:44 PM Reporting Lab: [place] [address] [place] [phone] Performing Lab: [place] [address] [place] [phone] CBC LYMPHOCYTE S/100 LEUKOCYTES IN BLOOD BY AUTOMATED COUNT 42 12/17 Specimen Type: BLOOD No comment entered. Ordering Provider: VICTOR M HUGO Report Released Date/Time: Dec 17, 2024 06:44 PM Reporting Lab: [place] [address] [facility] [address] Performing Lab: [place] [address] [place] [phone] CBC MONOCYTES/ 100 LEUKOCYTES IN BLOOD BY AUTOMATED COUNT 7 12/17 Specimen Type: BLOOD No comment entered. Ordering Provider: VICTOR M HUGO Report Released Date/Time: Dec 17, 2024 06:44 PM Reporting Lab: [facility] [address] [facility] [address] Performing Lab: [facility] [address] [facility] [address] [facility] CBC NEUTROPHIL S/100 LEUKOCYTES IN BLOOD BY AUTOMATED COUNT 48 12/17 Specimen Type: BLOOD No comment entered. Ordering Provider: VICTOR M HUGO Report Released Date/Time: Dec 17, 2024 06:44 PM Reporting Lab: [place] [address] [facility] [address] Performing Lab: [place] [address] [facility] [address] [facility] CBC EOSINOPHIL S/100 LEUKOCYTES IN BLOOD BY AUTOMATED COUNT 2 12/17 Specimen Type: BLOOD No comment entered. Ordering Provider: VICTOR M HUGO Report Released Date/Time: Dec 17, 2024 06:44 PM Reporting Lab: [place] [address] [facility] [address] Performing Lab: [place] [address] [facility] [address] [facility] CBC BASOPHILS/ 100 LEUKOCYTES IN BLOOD BY AUTOMATED COUNT 1 12/17 Specimen Type: BLOOD No comment entered. Ordering Provider: VICTOR M HUGO Report Released Date/Time: Dec 17, 2024 06:44 PM Reporting Lab: [place] [address] [facility] [address] Performing Lab: [facility] [address] [facility] [address] [facility] CBC LYMPHOCYTE S [#/VOLUME] IN BLOOD BY AUTOMATED COUNT 3.17 10*3/uL 0.77 - 4.50 12/17 Specimen Type: BLOOD No comment entered. Ordering Provider: VICTOR M HUGO Report Released Date/Time: Dec 17, 2024 06:44 PM Reporting Lab: [place] [address] [facility] [address] Performing Lab: [place] [address] [facility] [address] [facility] CBC MONOCYTES [#/VOLUME] IN BLOOD BY AUTOMATED COUNT 0.49 10*3/uL 0.19 - 0.80 12/17 Specimen Type: BLOOD No comment entered. Ordering Provider: VICTOR M HUGO Report Released Date/Time: Dec 17, 2024 06:44 PM Reporting Lab: [address] [address] Performing Lab: [place] [phone] [facility] CBC NEUTROPHIL S [#/VOLUME] IN BLOOD BY AUTOMATED COUNT 3.60 10*3/uL 2.10 - 8.00 12/17 Specimen Type: BLOOD No comment entered. Ordering Provider: VICTOR M HUGO Report Released Date/Time: Dec 17, 2024 06:44 PM Reporting Lab: [address] [address] Performing Lab: [place] [phone] CBC EOSINOPHIL S [#/VOLUME] IN BLOOD BY AUTOMATED COUNT 0.15 10*3/uL 0.00 - 0.60 12/17 Specimen Type: BLOOD No comment entered. Ordering Provider: VICTOR M HUGO Report Released Date/Time: Dec 17, 2024 06:44 PM Reporting Lab: [address] [address] Performing Lab: [place] [phone] [facility] CBC BASOPHILS [#/VOLUME] IN BLOOD BY AUTOMATED COUNT 0.08 10*3/uL 0.00 - 0.20 12/17 Specimen Type: BLOOD No comment entered. Ordering Provider: VICTOR M HUGO Report Released Date/Time: Dec 17, 2024 06:44 PM Reporting Lab: [facility] [address] [facility] [address] Performing Lab: [place] [address] [facility] [address] [facility] COMPREHE NSIVE METABOLI C PANEL CREATININE [MASS/VOLU ME] IN SERUM OR PLASMA 0.89 mg/dL 0.6 - 1.1 12/17 Specimen Type: PLASMA Comment: No hemolysis noted. Ordering Provider: VICTOR M HUGO Report Released Date/Time: Dec 17, 2024 06:44 PM Reporting Lab: [place] [address] [facility] [address] Performing Lab: [place] [address] [facility] [address] [facility] COMPREHE NSIVE METABOLI C PANEL UREA NITROGEN [MASS/VOLU ME] IN SERUM OR PLASMA 17.8 mg/dL 9.0 - 25.0 12/17 Specimen Type: PLASMA Comment: No hemolysis noted. Ordering Provider: VICTOR M HUGO Report Released Date/Time: Dec 17, 2024 06:44 PM Reporting Lab: [place] [address] [address] [facility] [address] Performing Lab: [place] [address] [facility] [address] [facility] COMPREHE NSIVE METABOLI C PANEL GLUCOSE [MASS/VOLU ME] IN SERUM OR PLASMA 103 mg/dL 72 - 99 12/17 H Specimen Type: PLASMA Comment: No hemolysis noted. Ordering Provider: VICTOR M HUGO Report Released Date/Time: Dec 17, 2024 06:44 PM Reporting Lab: [place] [address] [facility] [address] Performing Lab: [place] [address] [facility] [address] [facility] COMPREHE NSIVE METABOLI C PANEL SODIUM [MOLES/VOL UME] IN SERUM OR PLASMA 138 meq/L 136 - 145 12/17 Specimen Type: PLASMA Comment: No hemolysis noted. Ordering Provider: VICTOR M HUGO Report Released Date/Time: Dec 17, 2024 06:44 PM Reporting Lab: [place] [address] [address] [facility] [address] Performing Lab: [place] [address] [address] [facility] [phone] [place] [address] COMPREHE NSIVE METABOLI C PANEL POTASSIUM [MOLES/VOL UME] IN SERUM OR PLASMA 4.2 meq/L 3.5 - 5 12/17 Specimen Type: PLASMA Comment: No hemolysis noted. Ordering Provider: VICTOR M HUGO Report Released Date/Time: Dec 17, 2024 06:44 PM Reporting Lab: [place] [address] [facility] [address] Performing Lab: [place] [address] [address] [facility] [address] [facility] COMPREHE NSIVE METABOLI C PANEL CHLORIDE [MOLES/VOL UME] IN SERUM OR PLASMA 104 meq/L 98 - 107 12/17 Specimen Type: PLASMA Comment: No hemolysis noted. Ordering Provider: VICTOR M HUGO Report Released Date/Time: Dec 17, 2024 06:44 PM Reporting Lab: [place] [address] [facility] [address] Performing Lab: [place] [address] [address] [facility] [address] [facility] COMPREHE NSIVE METABOLI C PANEL CARBON DIOXIDE, TOTAL [MOLES/VOL UME] IN SERUM OR PLASMA 23 meq/L 22 - 31 12/17 Specimen Type: PLASMA Comment: No hemolysis noted. Ordering Provider: VICTOR M HUGO Report Released Date/Time: Dec 17, 2024 06:44 PM Reporting Lab: [place] [address] [address] [facility] [address] Performing Lab: [facility] [address] [facility] [address] [facility] COMPREHE NSIVE METABOLI C PANEL CALCIUM [MASS/VOLU ME] IN SERUM OR PLASMA 9.7 mg/dL 8.4 - 10.4 12/17 Specimen Type: PLASMA Comment: No hemolysis noted. Ordering Provider: VICTOR M HUGO Report Released Date/Time: Dec 17, 2024 06:44 PM Reporting Lab: [place] [address] [address] [facility] [address] Performing Lab: [place] [address] [address] [facility] [address] [facility] COMPREHE NSIVE METABOLI C PANEL PROTEIN [MASS/VOLU ME] IN SERUM OR PLASMA 7.5 g/dL 6 - 8.6 12/17 Specimen Type: PLASMA Comment: No hemolysis noted. Ordering Provider: VICTOR M HUGO Report Released Date/Time: Dec 17, 2024 06:44 PM Reporting Lab: [place] [address] [address] [facility] [address] Performing Lab: [place] [address] [address] [facility] [address] [facility] COMPREHE NSIVE METABOLI C PANEL ALBUMIN [MASS/VOLU ME] IN SERUM OR PLASMA 4.2 g/dL 3.4 - 5 12/17 Specimen Type: PLASMA Comment: No hemolysis noted. Ordering Provider: VICTOR M HUGO Report Released Date/Time: Dec 17, 2024 06:44 PM Reporting Lab: [place] [address] [address] [facility] [address] Performing Lab: [place] [address] [address] [facility] [address] [facility] COMPREHE NSIVE METABOLI C PANEL BILIRUBIN. TOTAL [MASS/VOLU ME] IN SERUM OR PLASMA 0.3 mg/dL 0.2 - 1.2 12/17 Specimen Type: PLASMA Comment: No hemolysis noted. Ordering Provider: VICTOR M HUGO Report Released Date/Time: Dec 17, 2024 06:44 PM Reporting Lab: [place] [address] [address] [facility] [address] Performing Lab: [facility] [address] [facility] [address] [facility] COMPREHE NSIVE METABOLI C PANEL ALKALINE PHOSPHATAS E [ENZYMATIC ACTIVITY/V OLUME] IN SERUM OR PLASMA 85 U/L 40 - 150 12/17 Specimen Type: PLASMA Comment: No hemolysis noted. Ordering Provider: VICTOR M HUGO Report Released Date/Time: Dec 17, 2024 06:44 PM Reporting Lab: [place] [address] [facility] [address] Performing Lab: [place] [address] [facility] [address] [facility] COMPREHE NSIVE METABOLI C PANEL ASPARTATE AMINOTRANS FERASE [ENZYMATIC ACTIVITY/V OLUME] IN SERUM OR PLASMA 42 U/L 5 - 34 12/17 H Specimen Type: PLASMA Comment: No hemolysis noted. Ordering Provider: VICTOR M HUGO Report Released Date/Time: Dec 17, 2024 06:44 PM Reporting Lab: [place] [address] [facility] [address] Performing Lab: [place] [address] [address] [facility] [address] [facility] COMPREHE NSIVE METABOLI C PANEL ALANINE AMINOTRANS FERASE [ENZYMATIC ACTIVITY/V OLUME] IN SERUM OR PLASMA 24 U/L 8 - 40 12/17 Specimen Type: PLASMA Comment: No hemolysis noted. Ordering Provider: VICTOR M HUGO Report Released Date/Time: Dec 17, 2024 06:44 PM Reporting Lab: [place] [address] [facility] [address] Performing Lab: [place] [address] COMPREHE NSIVE METABOLI C PANEL GLOMERULAR FILTRATION RATE/1.73 SQ M.PREDICTE D [VOLUME RATE/AREA] IN SERUM, PLASMA OR BLOOD BY CREATININE -BASED FORMULA (CKD-EPI 2020) 79.9 60 12/17 Specimen Type: PLASMA Comment: No hemolysis noted. Ordering Provider: VICTOR M HUGO Report Released Date/Time: Dec 17, 2024 06:44 PM Reporting Lab: [place] [address] [address] [place] [id number] Performing Lab: [place] [address] TROPONIN I TROPONIN I.CARDIAC [MASS/VOLU ME] IN SERUM OR PLASMA <0.010ng /mL 0 - 0.033 12/17 Specimen Type: PLASMA Comment: No hemolysis noted. Ordering Provider: VICTOR M HUGO Report Released Date/Time: Dec 17, 2024 06:44 PM Reporting Lab: [place] [address] [address] [place] [address] Performing Lab: [place] [address] CBC LEUKOCYTES [#/VOLUME] IN BLOOD BY AUTOMATED COUNT 6.3 10*3/uL 3.6 - 11.2 11/08 Specimen Type: BLOOD No comment entered. Ordering Provider: SHIRA WALTERS Report Released Date/Time: Nov 07, 2024 11:32 PM Reporting Lab: [place] [address] [address] [place] [address] Performing Lab: [address] CBC ERYTHROCYT ES [#/VOLUME] IN BLOOD BY AUTOMATED COUNT 4.40 10*6/uL 3.60 - 5.00 11/08 Specimen Type: BLOOD No comment entered. Ordering Provider: SHIRA WALTERS Report Released Date/Time: Nov 07, 2024 11:32 PM Reporting Lab: [place] [address] [facility] [address] Performing Lab: [address] [address] [facility] CBC HEMOGLOBIN [MASS/VOLU ME] IN BLOOD 13.1 g/dL 11.0 - 14.9 11/08 Specimen Type: BLOOD No comment entered. Ordering Provider: SHIRA WALTERS Report Released Date/Time: Nov 07, 2024 11:32 PM Reporting Lab: [address] [address] Performing Lab: [id number] [place] [address] CBC HEMATOCRIT [VOLUME FRACTION] OF BLOOD 40.2 32.6 - 43.4 11/08 Specimen Type: BLOOD No comment entered. Ordering Provider: SHIRA WALTERS Report Released Date/Time: Nov 07, 2024 11:32 PM Reporting Lab: [address] [address] Performing Lab: [address] [phone] [place] [address] CBC MCV [ENTITIC VOLUME] BY AUTOMATED COUNT 91.4 fL 80.0 - 100.0 11/08 Specimen Type: BLOOD No comment entered. Ordering Provider: SHIRA WALTERS Report Released Date/Time: Nov 07, 2024 11:32 PM Reporting Lab: [address] [address] Performing Lab: [address] [address] [facility] CBC [facility] [ENTITIC MASS] BY AUTOMATED COUNT 29.8 pg 27.0 - 34.0 11/08 Specimen Type: BLOOD No comment entered. Ordering Provider: SHIRA WALTERS Report Released Date/Time: Nov 07, 2024 11:32 PM Reporting Lab: [address] [address] Performing Lab: [address] [address] [facility] CBC MCHC [MASS/VOLU ME] BY AUTOMATED COUNT 32.6 g/dL 33.0 - 36.0 11/08 L Specimen Type: BLOOD No comment entered. Ordering Provider: SHIRA WALTERS Report Released Date/Time: Nov 07, 2024 11:32 PM Reporting Lab: [address] [address] Performing Lab: [address] [address] [facility] CBC PLATELETS [#/VOLUME] IN BLOOD BY AUTOMATED COUNT 321 10*3/uL 150 - 400 11/08 Specimen Type: BLOOD No comment entered. Ordering Provider: SHIRA WALTERS Report Released Date/Time: Nov 07, 2024 11:32 PM Reporting Lab: [address] [address] Performing Lab: [address] [address] [facility] CBC PLATELET MEAN VOLUME [ENTITIC VOLUME] IN BLOOD BY AUTOMATED COUNT 10.4 fL 7.5 - 11.2 11/08 Specimen Type: BLOOD No comment entered. Ordering Provider: SHIRA WALTERS Report Released Date/Time: Nov 07, 2024 11:32 PM Reporting Lab: [place] [address] [facility] [address] Performing Lab: [address] [address] [facility] CBC ERYTHROCYT E DISTRIBUTI ON WIDTH [RATIO] BY AUTOMATED COUNT 13.0 11.8 - 15.1 11/08 Specimen Type: BLOOD No comment entered. Ordering Provider: SHIRA WALTERS Report Released Date/Time: Nov 07, 2024 11:32 PM Reporting Lab: [facility] [address] [facility] [address] Performing Lab: [facility] [address] [facility] [address] [facility] CBC LYMPHOCYTE S/100 LEUKOCYTES IN BLOOD BY AUTOMATED COUNT 43 11/08 Specimen Type: BLOOD No comment entered. Ordering Provider: SHIRA WALTERS Report Released Date/Time: Nov 07, 2024 11:32 PM Reporting Lab: [facility] [address] [facility] [address] Performing Lab: [facility] [address] [facility] [address] [facility] CBC MONOCYTES/ 100 LEUKOCYTES IN BLOOD BY AUTOMATED COUNT 7 11/08 Specimen Type: BLOOD No comment entered. Ordering Provider: SHIRA WALTERS Report Released Date/Time: Nov 07, 2024 11:32 PM Reporting Lab: [facility] [address] [facility] [address] Performing Lab: [facility] [address] [facility] [address] [facility] CBC NEUTROPHIL S/100 LEUKOCYTES IN BLOOD BY AUTOMATED COUNT 47 11/08 Specimen Type: BLOOD No comment entered. Ordering Provider: SHIRA WALTERS Report Released Date/Time: Nov 07, 2024 11:32 PM Reporting Lab: [facility] [address] [facility] [address] Performing Lab: [facility] [address] [facility] [address] [facility] CBC EOSINOPHIL S/100 LEUKOCYTES IN BLOOD BY AUTOMATED COUNT 3 11/08 Specimen Type: BLOOD No comment entered. Ordering Provider: SHIRA WALTERS Report Released Date/Time: Nov 07, 2024 11:32 PM Reporting Lab: [facility] [address] [facility] [address] Performing Lab: [facility] [address] [address] [facility] CBC BASOPHILS/ 100 LEUKOCYTES IN BLOOD BY AUTOMATED COUNT 1 11/08 Specimen Type: BLOOD No comment entered. Ordering Provider: SHIRA WALTERS Report Released Date/Time: Nov 07, 2024 11:32 PM Reporting Lab: [address] [address] Performing Lab: [address] [address] [facility] CBC LYMPHOCYTE S [#/VOLUME] IN BLOOD BY AUTOMATED COUNT 2.70 10*3/uL 0.77 - 4.50 11/08 Specimen Type: BLOOD No comment entered. Ordering Provider: SHIRA WALTERS Report Released Date/Time: Nov 07, 2024 11:32 PM Reporting Lab: [address] [address] Performing Lab: [address] [address] [facility] CBC MONOCYTES [#/VOLUME] IN BLOOD BY AUTOMATED COUNT 0.46 10*3/uL 0.19 - 0.80 11/08 Specimen Type: BLOOD No comment entered. Ordering Provider: SHIRA WALTERS Report Released Date/Time: Nov 07, 2024 11:32 PM Reporting Lab: [address] [address] Performing Lab: [address] [address] [facility] CBC NEUTROPHIL S [#/VOLUME] IN BLOOD BY AUTOMATED COUNT 2.95 10*3/uL 2.10 - 8.00 11/08 Specimen Type: BLOOD No comment entered. Ordering Provider: SHIRA WALTERS Report Released Date/Time: Nov 07, 2024 11:32 PM Reporting Lab: [address] [address] Performing Lab: [address] [place] [address] [facility] CBC EOSINOPHIL S [#/VOLUME] IN BLOOD BY AUTOMATED COUNT 0.16 10*3/uL 0.00 - 0.60 11/08 Specimen Type: BLOOD No comment entered. Ordering Provider: SHIRA WALTERS Report Released Date/Time: Nov 07, 2024 11:32 PM Reporting Lab: [place] [address] [facility] [address] Performing Lab: [place] [address] [facility] [address] [facility] CBC BASOPHILS [#/VOLUME] IN BLOOD BY AUTOMATED COUNT 0.06 10*3/uL 0.00 - 0.20 11/08 Specimen Type: BLOOD No comment entered. Ordering Provider: SHIRA WALTERS Report Released Date/Time: Nov 07, 2024 11:32 PM Reporting Lab: [place] [address] [facility] [address] Performing Lab: [place] [address] [facility] [address] [facility] MAGNESIU M MAGNESIUM [MASS/VOLU ME] IN SERUM OR PLASMA 2.0 mg/dL 1.6 - 2.6 11/08 Specimen Type: PLASMA Comment: No hemolysis noted. Ordering Provider: SHIRA WALTERS Report Released Date/Time: Nov 07, 2024 11:32 PM Reporting Lab: [place] [address] [facility] [address] Performing Lab: [address] [address] [facility] RENAL PANEL CREATININE [MASS/VOLU ME] IN SERUM OR PLASMA 0.79 mg/dL 0.6 - 1.1 11/08 Specimen Type: PLASMA Comment: No hemolysis noted. Ordering Provider: SHIRA WALTERS Report Released Date/Time: Nov 07, 2024 11:32 PM Reporting Lab: [place] [address] [place] [phone] Performing Lab: [facility] [address] [facility] [address] [facility] RENAL PANEL UREA NITROGEN [MASS/VOLU ME] IN SERUM OR PLASMA 21.2 mg/dL 9.0 - 25.0 11/08 Specimen Type: PLASMA Comment: No hemolysis noted. Ordering Provider: SHIRA WALTERS Report Released Date/Time: Nov 07, 2024 11:32 PM Reporting Lab: [facility] [address] [facility] [address] Performing Lab: [address] [address] [facility] RENAL PANEL GLUCOSE [MASS/VOLU ME] IN SERUM OR PLASMA 87 mg/dL 72 - 99 11/08 Specimen Type: PLASMA Comment: No hemolysis noted. Ordering Provider: SHIRA WALTERS Report Released Date/Time: Nov 07, 2024 11:32 PM Reporting Lab: [place] [address] [facility] [address] Performing Lab: [place] [address] [facility] [address] [facility] RENAL PANEL SODIUM [MOLES/VOL UME] IN SERUM OR PLASMA 142 meq/L 136 - 145 11/08 Specimen Type: PLASMA Comment: No hemolysis noted. Ordering Provider: SHIRA WALTERS Report Released Date/Time: Nov 07, 2024 11:32 PM Reporting Lab: [place] [address] [facility] [address] Performing Lab: [place] [address] [facility] [address] [facility] RENAL PANEL POTASSIUM [MOLES/VOL UME] IN SERUM OR PLASMA 3.9 meq/L 3.5 - 5 11/08 Specimen Type: PLASMA Comment: No hemolysis noted. Ordering Provider: SHIRA WALTERS Report Released Date/Time: Nov 07, 2024 11:32 PM Reporting Lab: [facility] [address] [facility] [address] Performing Lab: [facility] [address] [place] [address] [facility] RENAL PANEL CHLORIDE [MOLES/VOL UME] IN SERUM OR PLASMA 106 meq/L 98 - 107 11/08 Specimen Type: PLASMA Comment: No hemolysis noted. Ordering Provider: SHIRA WALTERS Report Released Date/Time: Nov 07, 2024 11:32 PM Reporting Lab: [place] [address] [facility] [address] Performing Lab: [address] [address] [facility] RENAL PANEL CARBON DIOXIDE, TOTAL [MOLES/VOL UME] IN SERUM OR PLASMA 27 meq/L 22 - 31 11/08 Specimen Type: PLASMA Comment: No hemolysis noted. Ordering Provider: SHIRA WALTERS Report Released Date/Time: Nov 07, 2024 11:32 PM Reporting Lab: [place] [address] [facility] [address] Performing Lab: [address] [address] [facility] RENAL PANEL CALCIUM [MASS/VOLU ME] IN SERUM OR PLASMA 9.4 mg/dL 8.4 - 10.4 11/08 Specimen Type: PLASMA Comment: No hemolysis noted. Ordering Provider: SHIRA WALTERS Report Released Date/Time: Nov 07, 2024 11:32 PM Reporting Lab: [place] [address] [facility] [address] Performing Lab: [address] [address] [facility] RENAL PANEL PHOSPHATE [MASS/VOLU ME] IN SERUM OR PLASMA 4.9 mg/dL 2.3 - 4.7 11/08 H Specimen Type: PLASMA Comment: No hemolysis noted. Ordering Provider: SHIRA WALTERS Report Released Date/Time: Nov 07, 2024 11:32 PM Reporting Lab: [place] [address] [address] [facility] [address] Performing Lab: [place] [address] [facility] [address] [facility] RENAL PANEL ALBUMIN [MASS/VOLU ME] IN SERUM OR PLASMA 3.6 g/dL 3.4 - 5 11/08 Specimen Type: PLASMA Comment: No hemolysis noted. Ordering Provider: SHIRA WALTERS Report Released Date/Time: Nov 07, 2024 11:32 PM Reporting Lab: [place] [address] [facility] [address] Performing Lab: [place] [address] [facility] [phone] [place] [address] RENAL PANEL GLOMERULAR FILTRATION RATE/1.73 SQ M.PREDICTE D [VOLUME RATE/AREA] IN SERUM, PLASMA OR BLOOD BY CREATININE -BASED FORMULA (CKD-EPI 2020) 92.2 60 11/08 Specimen Type: PLASMA Comment: No hemolysis noted. Ordering Provider: SHIRA WALTERS Report Released Date/Time: Nov 07, 2024 11:32 PM Reporting Lab: [place] [address] [facility] [address] Performing Lab: [place] [address] [facility] [address] [place] [address] MRSA SURVL NARES DNA METHICILLI N RESISTANT STAPHYLOCO CCUS AUREUS (MRSA) DNA [PRESENCE] IN NOSE BY BERNARD WITH PROBE DETECTION Negative 11/08 Specimen Type: NARES Comment: Qualitative real-time PCR test for the rapid detection of methicillin -resistant Staphylococ cus aureus (MRSA) DNA from nasal swabs. A negative result does not preclude infection with the agent(s) tested and should not be used as the sole basis for treatment or other patient management decisions. A positive test does not necessarily indicate the presence of viable organisms, following bacterial culture to recover the organism for further characteriz ation and susceptibil ity testing. All results must be combined with clinical observation s, patient history, and epidemiolog ical information for final interpretat ion. Ordering Provider: ROSHAN PARNELL Report Released Date/Time: Nov 07, 2024 11:32 PM Reporting Lab: [facility] [address] [facility] [address] Performing Lab: [facility] [address] [facility] [address] [facility] Vital Signs Combined list of inpatient and outpatient Vital Signs from Department of Defense and Veterans Affairs, ranging from 12 months to all on record, depending upon the facility. Vital Sign Value Date Comments Source SYSTOLIC BLOOD PRESSURE 142 12/17/2024 18:41:00 [facility] DIASTOLIC BLOOD PRESSURE 110 12/17/2024 18:41:00 [facility] PAIN 6 12/17/2024 18:41:00 [facility] TEMPERATURE 97.9 12/17/2024 18:41:00 [facility] PULSE 106 12/17/2024 18:41:00 [facility] RESPIRATION 16 12/17/2024 18:41:00 [facility] SYSTOLIC BLOOD PRESSURE 110 11/26/2024 12:35:07 [facility] DIASTOLIC BLOOD PRESSURE 68 11/26/2024 12:35:07 [facility] PULSE OXIMETRY 98 11/26/2024 12:35:07 [facility] WEIGHT 182.2 11/26/2024 12:35:07 [facility] BMI 33 kg/m2 11/26/2024 12:35:07 [facility] PAIN 5 11/26/2024 12:35:07 [facility] HEIGHT 62 11/26/2024 12:35:07 [facility] TEMPERATURE 97.9 11/26/2024 12:35:07 [facility] PULSE 86 11/26/2024 12:35:07 [facility] RESPIRATION 18 11/26/2024 12:35:07 [facility] SYSTOLIC BLOOD PRESSURE 162 11/14/2024 09:30:14 [facility] DIASTOLIC BLOOD PRESSURE 78 11/14/2024 09:30:14 [facility] PULSE OXIMETRY 97 11/14/2024 09:30:14 S Julián [facility] WEIGHT 180 11/14/2024 09:30:[facility] BMI 33 kg/m2 11/14/2024 09:30:14 [facility] PAIN 4 11/14/2024 09:30:14 [facility] HEIGHT 62 11/14/2024 09:30:14 [facility] TEMPERATURE 97.8 11/14/2024 09:30:14 [facility] PULSE 86 11/14/2024 09:30:14 [facility] RESPIRATION 18 11/14/2024 09:30:14 [facility] SYSTOLIC BLOOD PRESSURE 112 11/08/2024 00:04:38 [facility] DIASTOLIC BLOOD PRESSURE 67 11/08/2024 00:04:38 [facility] PULSE OXIMETRY 96 11/08/2024 00:04:38 S Julián [facility] WEIGHT 182.2 11/08/2024 00:04:[address] [facility] Ang [facility] BMI 33 kg/m2 11/08/2024 00:04:38 ST[facility] PAIN 3 11/08/2024 00:04:[address] [facility] Ang [facility] HEIGHT 62 11/08/2024 00:04:38 . Ang [facility] TEMPERATURE 98.3 11/08/2024 00:04:38 [facility] PULSE 60 11/08/2024 00:04:38 . Ang [facility] RESPIRATION 18 11/08/2024 00:04:38 [facility] SYSTOLIC BLOOD PRESSURE 140 11/07/2024 08:55:00 [facility] DIASTOLIC BLOOD PRESSURE 83 11/07/2024 08:55:00 [facility] PAIN 0 11/07/2024 08:55:00 [facility] TEMPERATURE 98.6 11/07/2024 08:55:00 [facility] PULSE 118 11/07/2024 08:55:00 [facility] RESPIRATION 20 11/07/2024 08:55:00 [facility] Encounters Combined list of: 1) Encounters from Department of [facility] Affairs facilities going backup to the last 18 months, not all VA inpatient encounters are included; 2) Encounters from the Department of [facility] facilities going backup to 280 months. Location Location Details Encounter Type Encounter Number Reason For Visit Attending Provider ADM Date DC Date Status Disposition Source [facility] Outpatient Encounter [id number] CONSTANTIN BARKLEY 09/25 [facility] Outpatient Encounter [id number] CONSTANTIN BARKLEY 09/25 [facility] N [facility] Outpatient Encounter [id number] 10/26 [facility] Outpatient Encounter [id number] JESSICA WILLIAM 11/08 [facility] Outpatient Encounter [id number] 11/09 [facility] EMERGENCY DEPT VISIT LOW MDM [id number] Diagnos is: ICD-10- CM M79.662 Pain in left lower leg [facility]UR [facility] Outpatient Encounter [id number] 11/09 [facility] Outpatient Encounter [id number] 11/09 [facility] OFFICE O/P NEW MOD 45 MIN [id number] Diagnos is: ICD-10- CM Z98.84 Bariatr ic surgery status LUCY IRWIN 11/09 [facility] Inpatient Encounter [id number] Admit Reason: LEFT LEG PAIN KRYSTIAN AVILA 11/09 [facility] Inpatient Encounter [id number] TAWNYAYANNA MARTIN G 11/10 [facility] Inpatient Encounter [id number] BACKER,CAR JAREN P 11/10 [facility] Inpatient Encounter [id number] BACKER,CAR JAREN P 11/10 [facility] N [facility] Inpatient Encounter [id number] BACKER,CAR JAREN P 11/10 [facility] N [facility] Inpatient Encounter [id number] BACKER,CAR JAREN P 11/10 [facility] Inpatient Encounter [id number] 11/10 [facility] FIELD SALES TRAINER ASSESSMENT [id number] Diagnos is: ICD-10- CM 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 ANUM Laguna 11/10 [facility] Inpatient Encounter [id number] WATSONROGERS SERA L 11/10 [facility] Inpatient Encounter [id number] WATSONROGERS TELYN L 11/10 [facility] Inpatient Encounter [id number] WATSONROGERS TELYN L 11/10 [facility] Inpatient Encounter [id number] WATSONROGERS TELDIANA L 11/10 [facility] Inpatient Encounter [id number] BACKER,CAR JAREN P 11/10 [facility] Inpatient Encounter [id number] BACKER,CAR JAREN P 11/10 [facility] Inpatient Encounter [id number] BACKER,CAR JAREN P 11/11 [facility] Inpatient Encounter [id number] BACKERMATILDE P 11/11 [facility] Inpatient Encounter [id number] KITASUZYCLYDE W 11/11 [facility] Inpatient Encounter [id number] CLYDE URENA W 11/11 [facility] Inpatient Encounter [id number] CLYDE URENA W 11/11 [facility] Outpatient Encounter [id number] 11/13 [facility] Outpatient Encounter [id number] 11/14 [facility] Outpatient Encounter [id number] JESSICA WILLIAM 11/15 [facility] HC PRO PHONE CALL 11-20 MIN [id number] Diagnos is: ICD-10- CM Z51.89 Encount er for other specifi ed afterca re JESSICA WILLIAM 11/15 [facility] Outpatient Encounter [id number] JESSICA WILLIAM 11/17 [facility] EMERGENCY DEPT VISIT MOD MDM [id number] Diagnos is: ICD-10- CM M54.59 Other low back pain BRE [facility]ASTELUM 11[facility]19 [facility] Outpatient Encounter [id number] BRE GASTELUM 11/19 [facility] N [facility] Outpatient Encounter [id number] JESSICA WILLIAM 11/21 [facility] OFFICE O/P EST MOD 30 MIN [id number] Diagnos is: ICD-10- CM M79.7 Fibromy algia BARRERA,AR MIDA A 11/24 [facility] Outpatient Encounter [id number] 11/27 [facility] Outpatient Encounter [id number] BARRERA,AR MIDA A 11/29 [facility] Outpatient Encounter [id number] 11/30 [facility] Outpatient Encounter [id number] JESSICA WILLIAM 11/30 [facility] Outpatient Encounter [id number] JESSICA WILLIAM 12/15 [facility] EMERGENCY DEPT VISIT [place] MDM [id number] Diagnos is: ICD-10- CM G44.209 Tension -type headach e, unspeci fied, not intract able SHAN MATHUR Carey 12/30 [facility] Outpatient Encounter [id number] KEVANJOCELYNESHAN K 12/30 [facility] Outpatient Encounter [id number] RUNNER,MAR K D 01/04 [facility] Outpatient Encounter [id number] RUNNER,MAR K D 01/07 [facility] Outpatient Encounter [id number] 01/07 [facility] Outpatient Encounter [id number] RUNNER,MAR K D 01/08 [facility] Outpatient Encounter [id number] 3 RUNNER,MAR K D 01/09 [facility] Outpatient Encounter [id number] RUNNER,MAR K D 01/10 [facility] Outpatient Encounter [id number] RUNNER,MAR K D 01/14 [facility] Outpatient Encounter [id number] RUNNER,MAR K D 01/14 [facility] Outpatient Encounter [id number] JESSICA WILLIAM 01/21 [facility] FLU IMM NO ADMIN DOC MALICK [id number] Diagnos is: ICD-10- CM Z23 Encount er for immuniz atCORY Johnson RA 01/22 [facility] Outpatient Encounter [id number] 01/23 [facility] Outpatient Encounter [id number] JESSICA WILLIAM 01/23 [facility] Outpatient Encounter [id number] GABRIEL GAO A 01/23 [facility] OFFICE O/P EST LOW 20 MIN [id number] Diagnos is: ICD-10- CM R93.2 Abnorma l finding s on dx imaging of liver and biliary tract TU MARTIN 01/23 [facility] Outpatient Encounter [id number] JESSICA WILLIAM 01/24 [facility] Outpatient Encounter [id number] 01/24 [facility] Outpatient Encounter [id number] 01/28 [facility] Outpatient Encounter [id number] JU [facility]TH 01[facility] En[facility] [id number] JU NORTH NANCY Pleitez 01/31 [facility] Outpatient Encounter [id number] RUNNER,JESSICA K D 02/19 [facility] Outpatient Encounter [id number] 02/20 [facility] Outpatient Encounter [id number] RUNNER,JESSICA K D 02/21 [facility] Outpatient Encounter [id number] 9 RUNNER,JESSICA K D 02/25 [facility] Outpatient Encounter [id number] 9 RUNNER,JESSICA K D 02/25 [facility] Outpatient Encounter [id number] Diagnos is: ICD-10- CM M54.16 Radicul opathy, lumbar region Chema MAYER 02/25 [facility] EMERGENCY DEPT VISIT LOW MDM [id number] Diagnos is: ICD-10- CM M54.16 Radicul opathy, lumbar region DAVIS HENRY JEROMY 02/25 [facility] Outpatient Encounter [id number] DAVIS HENRY JEROMY 02/25 [facility] Outpatient Encounter [id number] RUNNER,DEC K D 02[facility] Out[facility] Encounter [id number] 8 RUNNER,DEC K D 02/[facility] Out[facility] Encounter [id number] 8 RUNNER,DEC K D 02/[facility] Outpatient Encounter [id number] 5 RUNNER,DEC K D 02/28 [facility] Outpatient Encounter [id number] 8 RUNNER,JESSICA K D 02/28 [facility] Outpatient Encounter [id number] [id number] 5 JU NORTH 03/12 [facility] Outpatient Encounter [id number] [id number] 5 JU NORTH 03/13 [facility] Outpatient Encounter [id number] [id number] 3 RUNNER,DEC K D 03/15 [facility] HC PRO PHONE CALL 5-10 MIN 02523-5.65 [id number] Diagnos is: ICD-10- CM M54.50 Low back pain, unspeci fied DINA BARTLETT SA 03/15 [facility] Outpatient Encounter 49794-4.65 [id number] 8 03/15 [facility] Encounter 34394-3.65 [id number] 2 JESSICA WILLIAM 03/21 [facility] HC PRO PHONE CALL 11-20 MIN [id number] [id number] Diagnos is: ICD-10- CM Z91.89 Oth persona l risk factors , not elsewhe re classif ied SANDY GARRETT ELYN L 03/25 [facility] Outpatient Encounter [id number] [id number] 8 SANDY GARRETT ELYN L 03/25 [facility] Outpatient Encounter [id number] [id number] 9 SANDY GARRETT ELYN L 03/25 [facility] Outpatient Encounter 59513-3.65 [id number] 6 SANDY GARRETT ELYN L 03/26 [facility] Outpatient Encounter 96975-9.65 [id number] 6 SANDY GARRETT ELYN L 03/27 [facility] Outpatient Encounter 41680-6.65 [id number] 6 JU NORTH 04/01 [facility] Outpatient Encounter 44909-2.65 [id number] 0 04/02 [facility] Outpatient Encounter 25869-2.65 [id number] 4 SANDY GARRETT ELYN L 04/05 [facility] Outpatient Encounter 90014-3.65 [id number] 3 COSME-HEIDY MAE 04/15 [facility] Outpatient Encounter 64021-5.65 [id number] 2 JOSEHEIDY PALOMO 04/15 [facility] OFFICE O/P EST MOD 30 MIN [id number] [id number] Diagnos is: ICD-10- CM R10.10 Upper abdomin al pain, unspeci fied BARRERA,AR MIDA A 04/16 [facility] Outpatient Encounter 82336-5.65 [id number] 7 RADIÓSCAR ,BARTOLO V 04/17 [facility] Outpatient Encounter [id number] [id number] 0 04/17 [facility] OFFICE O/P EST HI 40 MIN [id number] [id number] Diagnos is: ICD-10- CM M46.1 Sacroil iitis, not elsewhe re classif ied FRANTZ AL 04/18 [facility] Outpatient Encounter 85657-7.65 [id number] 0 SANDY GARRETT 04/18 [facility] Outpatient Encounter 40653-5.65 [id number] 8 RADINSKAYA ,BARTOLO V 04/19 [facility] Outpatient Encounter [id number] [id number] 8 FRANTZ AL 04/22 [facility] Outpatient Encounter [id number] [id number] PAULA CARMONA 04/22 [facility] Outpatient Encounter 95452-4.65 [id number] 6 04/22 [facility] Outpatient Encounter [id number] [id number] 7 JU NORTH J 04/23 [facility] Encounter 95559-9.65 [id number] 1 JU NORTH NANCY J 04/23 [facility] Outpatient Encounter [id number] [id number] 6 SANDY GARRETT 04/23 [facility] Out[facility] Encounter 93707-1.65 [id number] 8 WILMAN BLACKBURN 04/29 [facility] Outpatient Encounter 03355-7.65 [id number] 6 04/29 [facility] Outpatient Encounter 35232-4.65 [id number] 6 04/30 [facility] Out[facility] Encounter [id number] [id number] 0 SANDY GARRETT 04/30 [facility] Outpatient Encounter 96246-6.65 [id number] 0 05/02 [facility] Outpatient Encounter [id number] [id number] 7 Latrice MELTON 05/02 [facility] Out[facility] Encounter [id number] [id number] 2 EMIL BARRERA 05/08 [facility] Outpatient Encounter [id number] [id number] 8 MARTY BAILEY 05/08 [facility] Outpatient Encounter 94052-7.65 [id number] 7 JU NORTH 05/09 [facility] Outpatient Encounter 34297-7.65 [id number] 5 05/13 [facility] Outpatient Encounter 60516-3.65 [id number] 6 05/15 [facility] Outpatient Encounter 66998-6.65 [id number] 3 JU NORTH 05/20 [facility] Outpatient Encounter 31539-5.65 [id number] 7 05/21 [facility] NRV CNDJ TEST 7-8 STUDIES [id number] [id number] 9 Diagnos is: ICD-10- CM M79.7 Fibromy algia ZACH JC 05/21 [facility] Outpatient Encounter 61138-5.65 [id number] 5 05/21 [facility] Outpatient Encounter 05615-1.65 [id number] 0 05/21 [facility] Outpatient Encounter 67154-5.65 [id number] 9 JU NORTH 05/22 [facility] N [facility] Outpatient Encounter [id number] [id number] 2 05/22 [facility] OFFICE O/P EST MOD 30 MIN [id number] [id number] Diagnos is: ICD-10- CM F41.1 General ized anxiety disorde r CONCEPCIÓN HODGES 05/22 [facility] Outpatient Encounter 00067-5.65 [id number] 9 JU NORTH Maik 05/23 [facility] Outpatient Encounter 74301-2.65 [id number] 3 05/23 [facility] Outpatient Encounter 42783-9.65 [id number] 2 ERIC,AZ ORINDA K 06/03 [facility] Outpatient Encounter 47447-3.65 [id number] 2 JU NORTH Maik 06/03 [facility] Outpatient Encounter 06477-4.65 [id number] 1 JU NORTH Maik 06/04 [facility] Outpatient Encounter 92565-0.65 [id number] 5 SANDY GARRETT 06/06 [facility] EMERGENCY DEPT VISIT LOW MDM 93896-9.65 [id number] 9 Diagnos is: ICD-10- CM R53.81 Other malaise KIRSTIN SEVILLA 06/07 [facility] Outpatient Encounter [id number] [id number] 4 ROELKIRSTIN NAYELI Goldman 06/07 [facility] Outpatient Encounter 48474-3.65 [id number] 7 JU NORTH 06/11 [facility] N [facility] Outpatient Encounter 69837-2.65 [id number] 9 06/25 [facility] Outpatient Encounter 46806-3.65 [id number] 5 06/28 [facility] Outpatient Encounter 58765-3.65 [id number] 7 [place] ORINDA K 07/01 [facility] Outpatient Encounter [id number] [id number] 4 [place] OR[place] K 07/01 [facility] Outpatient Encounter 53675-5.65 [id number] 1 [place] OR[place] K 07/01 [facility] Outpatient Encounter 29308-6.65 [id number] 8 [place] OR[place] K 07/01 [facility] Outpatient Encounter [id number] [id number] 9 Diagnos is: ICD-10- CM M79.605 Pain in left leg Jack MARCOS 07/02 [facility] Outpatient Encounter 29883-3.65 [id number] 2 SANDY GARRETT 07/08 [facility] 76712-0.65 [id number] 5 07/08 [facility] Outpatient Encounter 79385-6.65 [id number] 9 SANDY GARRETT 07/08 [facility] Outpatient Encounter 53631-6.65 [id number] 2 KELLE CUMMINGS Maik 07/08 [facility] Outpatient Encounter [id number] [id number] 4 CONSTANTIN FLORES 07/08 [facility] EMERGENCY DEPT VISIT MOD MDM 60307-9.65 [id number] 0 Diagnos is: ICD-10- CM M54.16 Radicul opathy, lumbar region KELLE CUMMINGS Maik 07/08 [facility] Outpatient Encounter [id number] [id number] 1 KELLE CUMMINGS Maik 07/08 [facility] Outpatient Encounter [id number] [id number] Diagnos is: ICD-10- CM M54.50 Low back pain, unspeci fied BARRERA,AR MIDA A 07/09 [facility] Outpatient Encounter [id number] [id number] 5 SANDY GARRETT 07/09 [facility] Outpatient Encounter 29444-4.65 [id number] 7 07/11 [facility] Inpatient Encounter 76455-1.65 [id number] 9 TAVON HERNANDES ANY N 07/16 [facility] Outpatient Encounter 51752-2.65 [id number] 4 DEEP BLANCHADR 07/16 [facility] N [facility] EMERGENCY DEPT VISIT MOD MDM 50733-3.65 [id number] 1 Diagnos is: ICD-10- CM G89.29 Other chronic pain Ang MENDOZA UCNissa Y 07/16 [facility] Outpatient Encounter [id number] [id number] 6 TAVON HERNANDES ANY N 07/16 [facility] N [facility] Outpatient Encounter 90375-3.65 [id number] 6 GRETATAVON ANY N 07/16 [facility] En[facility] [id number] [id number] 3 Admit Reason: INTRACT ABLE SCIATIC Renata KUMARI,KRYSTIAN 07/16 [facility] Inpatient Encounter [id number] [id number] 4 SANJUANITA REYNOLDS Y 07/16 [facility] Encounter [id number] [id number] 0 SANJUANITA REYNOLDS Y 07/17 [facility] Inpatient Encounter 71997-7.65 [id number] 0 SANJUNAITA REYNOLDS Y 07/17 [facility] Inpatient Encounter 73666-5.65 [id number] 9 SANJUANITA REYNOLDS Y 07/17 [facility] N [facility] Inpatient Encounter 35119-4.65 [id number] 0 SANJUANITA REYNOLDS 07/17 [facility] N [facility] Inpatient Encounter 24898-2.65 [id number] 1 MAGOGRANT DYEREvelyn TOTH J 07/17 [facility] Inpatient Encounter [id number] [id number] 8 SANJUANITA REYNOLDS 07/17 [facility] N [facility] PT EVAL MOD COMPLEX 30 MIN [id number] [id number] 6 Diagnos is: ICD-10- CM M54.32 Sciatic a, left side WEDEL,JUST IN WAI 07/17 [facility] Inpatient Encounter 49775-2.65 [id number] 2 MARIZA FENTON 07/17 [facility] IP/OBS CONSLTJ NEW/EST HI 80 88836-0.65 [id number] 5 Diagnos is: ICD-10- CM M79.669 Pain in unspeci fied lower leg ZACH JC 07/17 [facility] Inpatient Encounter [id number] [id number] 6 ROSA MARIA COVINGTON 07/17 [facility] N [facility] Inpatient Encounter 77373-7.65 [id number] 7 ROSA MARIA COVINGTON 07/17 [facility] Inpatient Encounter 57204-2.65 [id number] 4 ROSA MARIA COVINGTON 07/17 [facility] PSYCH DIAG DWIGHT W/MED SRVCS 44979-2.65 [id number] 9 Diagnos is: ICD-10- CM F33.1 Major depress glenny disorde r, recurre nt, moderat BRITTON So 07/17 [facility] Inpatient Encounter [id number] [id number] 1 Carey WILLIS 07/17 [facility] Inpatient Encounter 26408-7.65 [id number] 7 Carey WILLIS 07/17 [facility] Inpatient Encounter 26788-3.65 [id number] 0 VELVET HERNANDEZ DA 07/18 [facility] Inpatient Encounter 37996-2.65 [id number] 0 VELVET HERNANDEZ DA 07/18 [facility] GAIT TRAINING THERAPY 42005-4.65 [id number] 9 Diagnos is: ICD-10- CM M54.32 Sciatic a, left side WEDEL,JUST IN WAI 07/18 [facility] Inpatient Encounter [id number] [id number] 7 07/18 [facility] Inpatient Encounter 42586-1.65 [id number] 5 CINDYANNABELLE HARD D 07/18 [facility] Inpatient Encounter 93497-4.65 [id number] 1 CINDYANNABELLE HARD D 07/18 [facility] Inpatient Encounter 29328-7.65 [id number] 3 BLAISEVERNA URIARTE 07/18 [facility] Inpatient Encounter 86098-7.65 [id number] 0 STACEY CARTER ES 07/18 [facility] Inpatient Encounter 48074-4.65 [id number] 0 STACEY CARTER ES 07/18 [facility] Inpatient Encounter [id number] [id number] 8 STACEY CARTER ES 07/19 [facility] Inpatient Encounter 42611-9.65 [id number] 1 FRANTZ AL 07/19 [facility] GAIT TRAINING THERAPY 29730-8.65 [id number] 7 Diagnos is: ICD-10- CM M54.32 Sciatic a, left side WEDEL,JUST IN WAI 07/19 [facility] Inpatient Encounter [id number] [id number] 4 TREVOR NAVARRO 07/19 [facility] Inpatient Encounter 11688-7.65 [id number] 8 MELANIETREVORTREY Santiago 07/19 [facility] Inpatient Encounter [id number] [id number] 9 ANNABELLE WHITE HARD D 07/19 [facility] Inpatient Encounter 42999-3.65 [id number] 7 ANNABELLE WHITE HARD D 07/19 [facility] Inpatient Encounter [id number] [id number] 2 ANNABELLE WHITE HARD Daniel 07/19 [facility] Inpatient Encounter [id number] [id number] 1 STACEY CARTER ES 07/19 [facility] Inpatient Encounter [id number] [id number] 4 STACEY CARTER ES 07/19 [facility] Inpatient Encounter [id number] [id number] 9 VERNA WELSH 07/20 [facility] Inpatient Encounter 22433-8.65 [id number] 5 VERNA WELSH 07/20 [facility] Inpatient Encounter 90523-7.65 [id number] 8 MAKSIM MEJIAS 07/20 [facility] Inpatient Encounter 30997-3.65 [id number] 8 MAKSIM MEJIAS CA A 07/20 [facility] Inpatient Encounter 02417-4.65 [id number] 4 MAKSIM MEJIAS NIKOLAY A 07/20 [facility] Outpatient Encounter [id number] [id number] 8 HERNANDES,TAVON ANY N 07/22 [facility] Encounter 00037-7.65 [id number] 6 TAVON HERNANDES ANY N 07/23 [facility] Out[facility] Encounter [id number] [id number] 0 HERNANDES,ALICIAF ANY N 07/24 [facility] Outpatient Encounter [id number] [id number] 4 HERNANDES,TAVON ANY N 07/25 [facility] Outpatient Encounter [id number] [id number] 7 07/26 [facility] Outpatient Encounter [id number] [id number] 2 07/27 [facility] Outpatient Encounter 71300-5.65 [id number] 9 JUAN LUCAS M 08/09 [facility] Outpatient Encounter [id number] [id number] 3 08/30 [facility] Outpatient Encounter 51782-9.65 [id number] 0 EMIL BARRERA A 09/19 [facility] Outpatient Encounter 73463-4.65 [id number] 7 ERICAZ CLOVER K 09/24 [facility] Outpatient Encounter 72032-5.65 [id number] 1 ERICAZ VICKINDRenata K 10/02 [facility] Outpatient Encounter [id number] [id number] 5 ERICAZ CLOVER Patino 10/14 [facility] OFFICE O/P EST MOD 30 MIN 30513-3.65 [id number] 1 Diagnos is: ICD-10- CM E61.1 Iron deficie luiy KATHLEEN TAPIA 10/22 [facility] Outpatient Encounter 21764-6.65 [id number] 3 ERICAZ CLOVER Patino 10/24 [facility] Outpatient Encounter [id number] [id number] 9 [place] VICKINDRenata Patino 10/24 [facility] 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 00243-5.65 [id number] 9 Diagnos is: ICD-10- CM 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 JU Hua 10/25 [facility] Outpatient Encounter 02384-9.65 [id number] 2 10/28 [facility] Outpatient Encounter 94215-3.65 [id number] 5 ERICAZ ORINDA K 10/28 [facility] Outpatient Encounter 36784-5.65 [id number] 0 10/29 [facility] Outpatient Encounter 16593-6.65 [id number] 8 ERICAZ ORINDA K 10/29 [facility] Outpatient Encounter 02450-8.65 [id number] 4 10/31 [facility] Outpatient Encounter 03550-1.65 [id number] 2 CRYS WEAVER 11/07 [facility] EMERGENCY DEPT VISIT LOW MDM 45716-9.65 [id number] 5 Diagnos is: ICD-10- CM 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, intract able DAVIS HENRY 11/07 [facility] MTMS BY PHARM ADDL 15 MIN [id number] [id number] Diagnos is: ICD-10- CM F11.90 Opioid use, unspeci fied, uncompl icated TERE JON D 11/07 [facility] Outpatient Encounter [id number] [id number] 2 11/07 [facility] Inpatient Encounter 03600-2.65 [id number] 5 TOM KU 11/07 [facility] Inpatient Encounter 91084-6.65 [id number] 1 Admit Reason: AGITATI ON, ANXIETY TWOA,MED 11/07 [facility] Encounter 34088-4.65 [id number] 6 DENAESAM WESTON M 11/08 [facility]patient Encounter 11381-5.65 [id number] 3 DENAESAM WESTON M 11/08 [facility] Inpatient Encounter 85523-8.65 [id number] 6 DENAESAM WESTON M 11/08 [facility] Inpatient Encounter 84314-2.65 [id number] 3 DENAESAM WESTON M 11/08 [facility]patient Encounter 50014-7.65 [id number] 1 JENNIFER MAGUIRE 11/08 [facility] Inpatient Encounter 27622-3.65 [id number] 5 JADEN BLOUNT R 11/08 [facility] Inpatient Encounter 97975-8.65 [id number] 7 JADEN BLOUNT R 11/08 [facility] Inpatient Encounter 42420-3.65 [id number] 1 JADEN BLOUNT R 11/08 [facility] Inpatient Encounter 04489-1.65 [id number] 8 O'JADEN CARTER R 11/08 [facility] Encounter [id number] [id number] 8 O'JADEN CARTER R 11/08 [facility] OFF/OP EST FEBRUARY X REQ PHY/QHP [id number] [id number] Diagnos is: ICD-10- CM Z71.9 Collator Hand ing, unspeci [place]ied [place] OR[place] 11/12 [facility] Outpatient Encounter 52346-7.65 [id number] 1 [place] ORINDRen[place] K 11/12 [facility] Outpatient Encounter [id number] [id number] 5 11/12 [facility] OFFICE O/P EST MOD 30 MIN [id number] [id number] Diagnos is: ICD-10- CM M13.0 Polyart hritis, unspeci fied BARRERA,AR MIDA A 11/14 [facility] Outpatient Encounter 23694-4.65 [id number] 5 11/14 [facility] Outpatient Encounter 40518-3.65 [id number] 5 11/15 [facility] OFFICE O/P NEW LOW 30 MIN 09130-9.65 [id number] 0 Diagnos is: ICD-10- CM M25.552 Pain in left hip STAN AUGUSTIN 11/26 [facility] Outpatient Encounter [id number] [id number] 0 11/28 [facility] Outpatient Encounter 33807-5.65 [id number] 8 [place] ORINDA K 11/28 [facility] Outpatient Encounter [id number] [id number] 4 [place] ORINDA K 11/29 [facility] Outpatient Encounter 62810-7.65 [id number] 4 11/29 [facility] Outpatient Encounter 23995-6.65 [id number] 9 12/02 [facility] Outpatient Encounter 87408-4.65 [id number] 1 ANURAG NORTHMaylin Pleitez 12/05 [facility] Outpatient Encounter 67472-6.65 [id number] 2 CANJU Pleitez 12/05 [facility] Outpatient Encounter 63797-0.65 [id number] 3 12/13 [facility] Outpatient Encounter 94554-2.65 [id number] 1 GUILLAUME HENDERSON 12/17 [facility] EMERGENCY DEPT VISIT LOW MDM [id number] Diagnos is: ICD-10- CM M79.602 Pain in left arm GUILLAUME HENDERSON 12/17 [facility] Outpatient Encounter [id number] 3 GUILLAUME HENDERSON 12/17 [facility] Outpatient Encounter [id number] 12/17 [facility] Outpatient Encounter [id number] GUILLAUME HENDERSON 12/17 [facility] Outpatient Encounter [id number] 0 ERIC,[place] Patino 01/02 [facility] PSYTX W PT 30 MINUTES [id number] Diagnos is: ICD-10- CM F41.1 General ized anxiety disorde r CONCEPCIÓN HODGES 01/02 [facility] Outpatient Encounter [id number] 01/02 [facility] Outpatient Encounter [id number] ZAID BOLIVAR 01/03 [facility] Outpatient Encounter [id number] 1 01/03 [facility] TARGETED CASE MANAGEMENT [id number] MICHAEL APPLE 01/03 [facility] Outpatient Encounter [id number] 1 01/03 [facility] CASE MANAGEMENT [id number] Renata CHILDRESS MY R 01/06 [facility] OFFICE O/P EST LOW 20 MIN [id number] Diagnos is: ICD-10- CM E61.1 Iron deficie ncKATHLEEN Lemus 01/07 [facility] Outpatient Encounter [id number] 3 ERICAZ [place] Patino 01/09 [facility] Outpatient Encounter [id number] 01/09 [facility] Outpatient Encounter [id number] 2 ERICAZ VICKINDRenata Patino 01/16 [facility] Outpatient Encounter [id number] ERICAZ ORINDA K 01/17 [facility] TARGETED CASE MANAGEMENT [id number] [id number] Renata CHILDRESS R 01/29 [facility] Outpatient Encounter [id number] 2 ERICAZ VICKINDRenata Patino 02[facility] En[facility] [id number] [id number] 02/13 [facility] Outpatient Encounter [id number] [id number] 2 ERICAZ VICKINDRenata Patino 02/14 [facility] Outpatient Encounter [id number] 02/17 [facility] Outpatient Encounter [id number] 02/19 [facility] Outpatient Encounter [id number] [id number] 2 CANJU Maik 02/27 [facility] Outpatient Encounter [id number] [id number] 02/28 [facility] En[facility] [id number] 03/07 [facility] Outpatient Encounter [id number] ZAID BOLIVAR 03/11 [facility] Outpatient Encounter [id number] [id number] 03/12 [facility] N Social History Combined list of available smoking, tobacco, and other social history from Department of Defense and [facility] Affairs facilities. Social History Type Response Date Comment [facility] [place] [facility] Tobacco smoking status NHIS ORYX ADMIT TOBACCO SCREEN NO 11/07/2024 [facility] History of tobacco use ORYX ADMIT TOBACC O SCREEN NO 07/17/2024 [facility] History of tobacco use VA-TOBACCO NEVER USED 11/24/2023 [facility] History of tobacco use ORYX ADMIT TOBACC O SCREEN NO 11/09/2023 [facility] History of tobacco use VA-TOBACCO NEVER USED 06/07/2022 [facility] History of tobacco use ORYX ADMIT TOBACC O SCREEN NO 05/25/2022 [facility] History of tobacco use ORYX ADMIT TOBACC O SCREEN NO 05/13/2022 [facility] History of tobacco use ORYX ADMIT TOBACC O SCREEN REFUSED 04/07/2022 [facility] History of tobacco use ORYX ADMIT TOBACC O SCREEN NO 12/20/2021 [facility] History of tobacco use ORYX ADMIT TOBACC O SCREEN NO 08/23/2021 [facility] History of tobacco use ORYX ADMIT TOBACC O SCREEN NO 08/12/2021 [facility] History of tobacco use VA-TOBACCO NEVER USED 10/05/2020 [facility] History of tobacco use VA-TOBACCO NEVER USED 09/10/2019 [facility] History of tobacco use TOBACCO REFUSED S CREEN V15 12/15/2017 [facility] History of tobacco use TOBACCO REFUSED S CREEN V15 12/13/2017 [facility] History of tobacco use LIFETIME NON-USER OF TOBACCO 08/17/2017 [facility] History of tobacco use LIFETIME NON-USER OF TOBACCO 07/20/2017 [facility] History of tobacco use LIFETIME NON-USER OF TOBACCO 06/21/2017 [facility] History of tobacco use LIFETIME NON-USER OF TOBACCO 08/26/2016 [facility] History of tobacco use LIFETIME NON-USER OF TOBACCO 09/22/2015 [facility] History of tobacco use LIFETIME NON-USER OF TOBACCO 10/15/2014 [facility] History of tobacco use LIFETIME NON-USER OF TOBACCO 08/30/2013 [facility] History of tobacco use LIFETIME NON-USER OF TOBACCO 05/12/2008 [facility] History of tobacco use LIFETIME NON-USER OF TOBACCO 06/28/2007 [facility] History of tobacco use 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 Additional future care activities may be listed in the Assessment and Plan section. Date/Time Care Activity Care Activity Detail Facili ty 04/18/2025 AMBULATORY - PSYCHIATRY AMBULATORY - PSYC HIATRY [facility]
--- OUTSIDE RECORDS SUMMARY | 2025-03-22 21:59 | XMS_ITS | Encounter Summary ---
Author Name [facility] [place] [facility] [place] [facility] [place] Address [address] [place] [address] Care Team Providers Care Category Analyst Name Role Phone VERNA BARRERA Primary Care [...] AID (WNR) Oct 23, 2016 MEDICAI D [id number] [phone] GERDA NUNES PATIENT Selected Encounter This section includes the information on record at [place] for the Encounter. Date/Time Encounter Type Encounter Description Reason Provider Source Nov 07, 2024 08:41 AM EMERGENCY DEPT VISIT [facility] EMERGENCY DEPT ICD-10-CM G44.211 Episodic tension-type headache, intractable SUKHDEEP HENRY Cecile Encounter Template Text not used by [place] Assessments - Encounter Diagnoses This section includes the primary and secondary diagnoses documented for the Encounter. Date/Time Primary/Secondary Diagnosis Diagnosis Name Provider Source Nov 07, 2024 11:27 PM PRIMARY Episodic tension-type headache, intractable SUKHDEEP HENRY [facility] Nov 07, 2024 11:27 PM SECONDARY Other malaise SUKHDEEP HENRY [facility] Plan of Treatment: Future Appointments (+ 6 months) and Future Tests (+/- 45 days) The Plan of Treatment section includes future care activities for the patient from all [place] [facility]. This section includes future appointments and future orders which are active, pending or scheduled. Future Appointments This section includes appointments that were scheduled to occur 6 months from the date of the Encounter, up to a maximum of 20 appointments. The data comes from all [facility]. Appointment Date/Time Appointment Type Appointme nt Facility Name Nov 12, 2024 10:30 AM AMBULATORY - MEDICINE [facility] Nov 14, 2024 09:30 AM AMBULATORY - MEDICINE [facility] Nov 26, 2024 12:30 PM AMBULATORY - SURGERY [facility] Dec 17, 2024 06:28 PM AMBULATORY - MEDICINE [facility] Jan 02, 2025 01:00 PM AMBULATORY - PSYCHIATRY [facility] Jan 07, 2025 11:30 AM AMBULATORY - MEDICINE [facility] Apr 18, 2025 02:30 PM AMBULATORY - PSYCHIATRY [facility] Active, Pending, and Scheduled Orders This section includes a listing of several types of active, pending, and scheduled orders, including clinic medications orders, diagnostic test orders, procedure orders and consult orders; where the start date of the order is 45 days before the date of the Encounter or 45 days after the date of theEncounter. The data comes from all [facility]. Test Date/Time Test Type Test Details Facility Name Sep 24, 2024 03:02 PM Laboratory - Chemi stry Order TSH W/ REFLEX FT4 (STL) GREEN LI-HEP PLASMA [facility] Nov 07, 2024 09:39 AM Laboratory - Microbiology Order BLOOD CULT (SET 1) B D BLD. BOTTLE BLOOD [facility] Nov 07, 2024 09:39 AM Laboratory - Microbiology Order BLOOD CULT (SET 2) B D BLD. BOTTLE (SET 2) BLOOD [facility] Lab Results: +/- 30 days of [...] Type Comment Nov 08, 2024 05:42 AM [facility] RENAL PANEL PLASMA Specimen Type: PLASMA Comment: No hemolysis noted. Ordering Provider: SIMI WALTERS Report Released Date/Time: Nov 07, 2024 11:32 PM Reporting Lab: [facility] [address] [address] Performing Lab: [facility] [address] [place] [address] CREATININE 0.79 mg/dL 0.6-1.1 UREA NITROGEN 21.2 mg/dL 9.0-25.0 GLUCOSE 87 mg/dL 72-99 SODIUM 142 meq/L 136-145 POTASSIUM 3.9 meq/L 3.5-5 CHLORIDE 106 meq/L 98-107 CARBON DIOXIDE 27 meq/L 22-31 CALCIUM 9.4 mg/dL 8.4-10.4 PHOSPHOROUS 4.9 mg/dL H 2.3-4.7 ALBUMIN 3.6 g/dL 3.4-5 EGFR (CKD-EPI 2020) 92.2 >60 Nov 08, 2024 05:42 AM [facility] MAGNESIUM PLASMA Specimen Type: PLASM A Comment: No hemolysis noted. Ordering Provider: SIMI WALTERS Report Released Date/Time: Nov 07, 2024 11:32 PM Reporting Lab: [facility] [address] [address] Performing Lab: [facility] [address] [facility] [address] MAGNESIUM 2.0 mg/dL 1.6-2.6 Nov 08, 2024 05:42 AM [facility] CBC BLOOD Specimen Type: BLOOD No comment entered. Ordering Provider: SIMI WALTERS Report Released Date/Time: Nov 07, 2024 11:32 PM Reporting Lab: [facility] [address] [address] Performing Lab: [place] [id number] [facility] [address] WBC 6.3 10*3/uL 3.6-11.2 RBC 4.40 10*6/uL [...] 0.00-0. 20 Nov 08, 2024 05:00 AM [facility] MRSA SURVL NARES DNA NARES Specimen [...] Nov 07, 2024 11:32 PM Reporting Lab: [address] [address] Performing Lab: [address] [address] MRSA SURVL NARES DNA Negative Negative Nov 07, 2024 12:35 PM [facility] URINE DRUG SCREEN (STL) URINE Specimen Type: URINE Comment: The cut-off value for Fentanyl was laboratory developed and its performance characteristics confirmed by the [facility] laboratory thru method comparison with reference laboratory and medication chart review. The laboratory is regulated under CLIA as qualified to perform high-complexity testing. Fentanyl is used for clinical purposes in conjunction with other laboratory tests. Ordering Provider: SUKHDEEP HENRY Report Released Date/Time: Nov 07, 2024 09:39 AM Reporting Lab: [facility] [address] [facility] [address] Performing Lab: [address] [address] ETHANOL <10 mg/dL 0-9 AMPHET/METHAMPHETAMINE Negative ng/mL COCAINE METABOLITES Negative ng/mL BENZODIAZEPINES (STL) POSITIVE ng/mL CANNABINOIDS Negative ng/mL METHADONE Negative ng/mL OPIATES Negative ng/mL CREATININE URINE/OTHERS 107.3 mg/dL 47-1 10 OXYCODONE (VMVJL-UIY-NI) Negative ng/mL BUPRENORPHINE (STL-PB-MA) Negative ng/mL FENTANYL (STL) Negative ng/mL Nov 07, 2024 12:35 PM [facility] URINALYSIS (STL-PB) URINE Specimen Type: URIN E No comment entered. Ordering Provider: SUKHDEEP HENRY Report Released Date/Time: Nov 07, 2024 09:40 AM Reporting Lab: [address] [address] Performing Lab: [address] [address] URINE COLOR Yellow Yellow U.BILIRUBIN Negative mg/dL [...] GRAVITY 1.023 Nov 07, 2024 11:22 AM [facility] SEROTONIN SERUM Specimen Type: SERUM Comment: This test was developed and its analytical performance characteristics have been determined by [employer]. It has not been cleared or approved by FDA. This assay has been validated pursuant to the CLIA regulations and is used for clinical purposes. Test performed [place] [address] Dairy Farm Worker: Lois Valenzuela MD,PHD,JESSICA Test Reported by [facility] [employer] [facility], [address] [place] [id number] Remi Dos Santos M.D., Ph.D., Director of Laboratories , CLIA [id number] This test was developed and its analytical performance characteristics have been determined by [employer]. It has not been cleared or approved by FDA. This assay has been validated pursuant to the CLIA regulations and is used for clinical purposes. Test performed [place] [address] Dairy Farm Worker: Lois Valenzuela MD,PHD,JESSICA Test Reported by [facility] [employer] [facility], [address] [place] [address] Remi Dso Santos M.D., Ph.D., Director of Laboratories , CLIA [id number] Ordering Provider: SUKHDEEP HENRY Report Released Date/Time: Nov 07, 2024 10:04 AM Reporting Lab: [facility] [address] [facility] [address] Performing Lab: [facility] [address] [facility] SEROTONIN 16 ng/mL L 56-244 Nov 07, 2024 11:22 AM [facility] TSH (MA-PB) SERUM Specimen Type: SERUM No comment entered. Ordering Provider: SUKHDEEP HENRY Report Released Date/Time: Nov 07, 2024 09:56 AM Reporting Lab: [facility] [address] [facility] [address] Performing Lab: [address] [address] TSH 3.321 u[IU]/mL 0.47-5 Nov 07, 2024 09:57 AM [facility] COMPREHENSIVE METABOLIC PANEL PLASMA Specimen Type: PLASMA Comment: No hemolysis noted. Ordering Provider: MANNY GORDON Report Released Date/Time: Nov 07, 2024 09:15 AM Reporting Lab: [address] [address] Performing Lab: [address] [address] CREATININE 0.84 mg/dL 0.6-1.1 UREA NITROGEN 20.2 [...] 85.7 >60 Nov 07, 2024 09:57 AM [facility] CBC BLOOD Specimen Type: BLOOD No comment entered. Ordering Provider: MANNY GORDON Report Released Date/Time: Nov 07, 2024 09:14 AM Reporting Lab: [address] [address] Performing Lab: [address] [address] WBC 10.4 10*3/uL 3.6-11.2 RBC 4.99 10*6/uL [...] 0.00-0. 20 Nov 07, 2024 09:49 AM [facility] LIPASE PLASMA Specimen Type: PLASM A No comment entered. Ordering Provider: SUKHDEEP HENRY Report Released Date/Time: Nov 07, 2024 09:39 AM Reporting Lab: [address] [address] Performing Lab: [address] [address] LIPASE 35 U/L 8-78 Nov 07, 2024 09:49 AM [facility] ETHANOL SERUM/PLASMA (STL) PLASMA Specimen Typ e: PLASMA No comment entered. Ordering Provider: SUKHDEEP HENRY Report Released Date/Time: Nov 07, 2024 09:39 AM Reporting Lab: [address] [address] Performing Lab: [address] [address] ETHANOL SERUM/PLASMA (STL) <10 mg/dL 0-9 Nov 07, 2024 09:49 AM [facility] RESPIRATORY PCR PANEL NASOPHARYNX Specimen Type: NASOPHARYNX Comment: The [employer] RP Panel combines nested multiplex PCR and [...] available to the clinician evaluating the patient. [employer] Blaise, (457) Ordering Provider: SUKHDEEP HENRY Report Released Date/Time: Nov 07, 2024 09:39 AM Reporting Lab: [place] [address] [facility] [address] Performing Lab: [address] [address] *Adenovirus (BF) Not Detected Not Detect ed [...] Dete cted Nov 07, 2024 09:49 AM [facility] CPK PLASMA Specimen Type: PLASM A No comment entered. Ordering Provider: SUKHDEEP HENRY Report Released Date/Time: Nov 07, 2024 09:48 AM Reporting Lab: [place] [address] [facility] [address] Performing Lab: [facility] [address] [place] [address] CPK 61 U/L 29-168 Oct 22, 2024 12:03 PM [facility] FERRITIN SERUM Specimen Type: SERU M No comment entered. Ordering Provider: EZ TAPIA Report Released Date/Time: Oct 22, 2024 11:52 AM Reporting Lab: [address] [address] Performing Lab: [address] [address] FERRITIN 173.22 ng/mL 10-204 Oct 22, 2024 12:03 PM [facility] B12 SERUM Specimen Type: SERUM No comment entered. Ordering Provider: EZ TAPIA Report Released Date/Time: Oct 22, 2024 11:54 AM Reporting Lab: [address] [address] Performing Lab: [address] [address] B12 440 pg/mL 213-816 Oct 22, 2024 12:03 PM [facility] IRON/TIBC PROFILE SERUM Specimen Type: SERUM No comment entered. Ordering Provider: EZ TAPIA Report Released Date/Time: Oct 22, 2024 11:52 AM Reporting Lab: [address] [address] Performing Lab: [address] [address] TIBC 324 ug/dL 250-450 TRANSFERRIN 259 mg/dL 173-360 IRON SATURATION 45 20-50 IRON 146 ug/dL 50-170 Oct 22, 2024 12:03 PM [facility] CBC BLOOD Specimen Type: BLOOD No comment entered. Ordering Provider: EZ TAPIA Report Released Date/Time: Oct 22, 2024 11:52 AM Reporting Lab: [facility] [address] [address] Performing Lab: [facility] [address] [address] WBC 6.5 10*3/uL 3.6-11.2 RBC 4.69 10*6/uL [...] Height Weight Body Mass Index Source Nov 07, 2024 08:42 PM 50 115/62 16 97 [facility] Nov 07, 2024 01:00 PM 88 133/84 17 97 4 [facility] Nov 07, 2024 08:55 AM 98.6 118 140/83 20 0 [facility] Social History: Smoking Status (Most current) and Tobacco Use (All prior to encounter date) This section includes the most current, and the historical, smoking and tobacco- related health factors from the [place] facility where the Encounter took place. Current Smoking Status This section includes the most current smoking, or tobacco-related health factor, from the [place] facility where the Encounter took place. Date/Time Current Smoking Status Comment Jessica ity Nov 07, 2024 05:48 PM ORYX ADMIT TOBACCO SCREEN NO [facility] Tobacco Use History This section includes a history of the smoking, or tobacco-related health factors, that were collected on or before the date of the Encounter. The data comes from the [place] facility where the Encounter took place. Date/Time Smoking Status/Tobacco Use Comment Evelyn acility Jul 17, 2024 03:18 AM ORYX ADMIT TOBACCO SCREEN NO [facility] Nov 09, 2023 06:45 AM ORYX ADMIT TOBACCO SCREEN NO [facility] May 25, 2022 11:42 AM ORYX ADMIT TOBACCO SCREEN NO [facility] May 13, 2022 08:14 PM ORYX ADMIT TOBACCO SCREEN NO [facility] Apr 07, 2022 03:34 AM ORYX ADMIT TOBACCO SCREEN REFUSED [facility] Dec 20, 2021 12:44 PM ORYX ADMIT TOBACCO SCREEN NO [facility] Aug 23, 2021 08:22 PM ORYX ADMIT TOBACCO SCREEN NO [facility] Aug 12, 2021 06:24 PM ORYX ADMIT TOBACCO SCREEN NO [facility] May 12, 2008 06:16 PM LIFETIME NON-USER OF TOBACCO [facility] Jun 28, 2007 01:18 PM LIFETIME NON-USER OF TOBACCO [facility] May 03, 2006 10:56 AM LIFETIME NON-TOBACCO USER [facility] Dec 03, 2003 08:16 AM LIFETIME NON-TOBACCO USER [facility] Radiology Reports: +/- 30 days of [...] the Encounter. The data comes from all [place] treatment facilities. Date/Time Radiology Report Provider Source Nov 26, 2024 01:13 PM HIP, UNILAT, 2-3 V IEWS LEFT W OR W/O PELVIS: GERDA NUNES [id number] -1975 F Exm Date: NOV 26, 2024@13:13 Req Phys: GALDINO FONTANA Loc: BIN-ORTHO 1 (Req'g Loc) Img Loc: -MAIN RADIOLOGY SUITE Service: Unknown Screen: Patient answered no [facility] [address] [place] [address] (Case [id number] COMPLETE) HIP, UNILAT, 2-3 VIEWS LEFT W OR (RAD Detailed) CPT:06818 Proc Modifiers : LEFT, AP Pelvis, Frog Reason for Study: Left hip pain Clinical History: Report Status: Verified Date Reported: NOV 28, 2024 Date Verified: NOV 28, 2024 Assistant Offset Press Operator E-Sig:/ES/ROSALINA CHANG Report: EXAMINATION: HIP, UNILAT, 2-3 [...] osteoarthritis. Primary Interpreting Staff: ROSALINA CHANG, RADIOLOGIST (Assistant Offset Press Operator) /ROSALINA CROCKER [facility] Nov 07, 2024 04:[address] HEAD W/O CONT: GERDA NUNES [id number] -1975 F Exm Date: NOV 07, 2024@16:16 Req Phys: SUKHDEEP HENRY Loc: -EMERGENCY DEPT 2ND SHIFT (R Img Loc: -CT IMAGING BIN Service: Unknown Screen: Patient answered no [facility] [address] [place] [address] (Case [id number] COMPLETE) CT HEAD W/O CONT (CT Detailed) CPT:40975 Reason for Study: headache Clinical History: Responsible Attending: Carl Attending Contact Number: [id number] Resident Contact Number: [...] 07, 2024 Date Verified: NOV 07, 2024 Assistant Offset Press Operator E-Sig:/ES/Geneva Egan MD Report: CT HEAD W/O CONT CASE #: [id number] DATE:11/07/2024 4:46 PM CLINICAL HISTORY:headache COMPARISON: 6 [...] Primary Interpreting Staff: Geneva Egan MD, Radiologist (Assistant Offset Press Operator) /GENEVA WESTFALL [facility] Nov 07, 2024 09:44 AM CHEST PORTABLE: GERDA NUNES [facility] [id number] -1975 F Exm Date: NOV 07, 2024@09:44 Req Phys: SUKHDEEP HENRY Loc: BIN-EMERGENCY DEPT 2ND SHIFT (R Img Loc: BIN-MAIN RADIOLOGY SUITE Service: Unknown Screen: Patient answered no [facility], [facility] [address] [place] [address] (Case [id number] COMPLETE) CHEST PORTABLE (RAD Detailed) CPT:19918 Proc Modifiers : Portable Reason for Study: , cough Clinical History: Cough and fever Report Status: Verified Date Reported: NOV 07, 2024 Date Verified: NOV 07, 2024 Assistant Offset Press Operator E-Sig:/ES/SYED MCGINNIS MD Report: Case #[id number]. Chest [...] SYED MCGINNIS MD, Staff Physician - Radiologist (Assistant Offset Press Operator) /SYED HOWARD [facility] Pathology Reports: +/- 30 [...] the Encounter. The data comes from all [place] treatment facilities. Date/Time Pathology Report Provider Source Nov 07, 2024 12:35 PM LR MICROBIOLOGY RE PORT: Accession [UID]: [id number] [[id number]] Received: Nov 07, 2024@15:52 Collection sample: URINE,CLEAN CATCH Collection date: Nov 07, 2024 12:35 Site/Specimen: URINE Provider: SUKHDEEP HENRY Test(s) ordered: C&S URINE..................... completed: Nov 08, 2024 22:06 * BACTERIOLOGY FINAL REPORT => Nov 08, 2024 22:08 TECH CODE: [id number] Bacteriology Remark(s): CULTURE SHOWS <10,000 CFU/ML NATURE OF GROWTH SUGGESTS CONTAMINATION OR DELAY IN TRANSPORT. There will be no work up. NICHO 11/08/24 =--=--=--=--=--=--=--=--=--= --=--=--=--=--=--=--=--=--=- -=--=--=--=--=--=--=-- Performing Laboratory: Bacteriology Report Performed By: [facility], [place] [address] [facility] CLIA# [id number] [address] [facility] [address] [place] [address] LENIN DILLARD [facility] Encounter Notes: All associated encounter notes This section contains the clinical notes associated to the Encounter. Date/Time Encounter Note(s) Provider Source Nov 07, 2024 09:23 AM PHYSICIAN EMERGENC Y DEPT NOTE: LOCAL TITLE: EMERGENCY DEPARTMENT STL STANDARD TITLE: PHYSICIAN EMERGENCY DEPT NOTE DATE OF NOTE: NOV 07, 2024@09:23 ENTRY DATE: NOV 07, 2024@09:23:55 AUTHOR: SUKHDEEP HENRYIGNER: URGENCY: STATUS: COMPLETED EMERGENCY DEPARTMENT STL Has ADDENDA TRIAGE CHIEF COMPLAINT: not feeling well HPI: Patient is a 49-year-old female past medical history of hypothyroidism, migraine headaches, obesity, obstructive sleep apnea, status post gastric bypass complicated by esophageal stenosis with dilatation, status post total abdominal hysterectomy, status post compartment syndrome left leg with decompression surgery and resultant chronic pain to left lower extremity on duloxetine, lumbar radiculopathy affecting left lower extremity, fibromyalgia, who states that she was recently started on tramadol for pain and gabapentin started 300 mg nightly And has now increased her dose to 300mg 3 times daily, and started feeling funny with shakiness, chills, headache, myalgia starting last night continued today. Patient states she has some mild nausea this morning but denies any chest pain, shortness of breath, cough, runny nose, sore throat or abdominal pain. Patient states a family member advised her to come to the emergency department to rule out serotonin syndrome. Patient states that she has been taking her medications as prescribed, does not drink alcohol, smoke tobacco or use recreational drugs. Patient has had no known sick contacts or recent travel. REVIEW OF SYSTEMS: See HPI for further details. All 10 systems reviewed and otherwise negative unless otherwise detailed herein. PAST MEDICAL HISTORY: 1) Family history of ischemic heart disease (SNOMED CT 385213130) 2) Migraine (SNOMED CT 29924246) 3) Vitamin D deficiency 4) Hypothyroidism 5) Low back pain 6) Depression 7) Mastodynia 8) Lumbar radiculopathy 9) Irritable bowel syndrome characterized by alternating bowel habit 10) Fibromyalgia 11) Chronic pain in female pelvis 12) Kidney stone 13) Insomnia 14) Compartment syndrome 15) Obesity ([facility] [id number]) 16) Arthritis 17) Intermittent palpitations 18) Chronic [...] (EXTERNAL USE ONLY) Indication: FOR CONTACT DERMATITIS I have reviewed the patient's medication list with the patient and/or his/her care-brim cutter. Any medication discrepancies have been resolved. Patient will be provided with an updated list of his/her medication(s). SURGICAL HISTORY: not pertinent FAMILY HISTORY: not pertinent SOCIAL HISTORY: not pertinent Social History Main Topics: Smoking status: No data available for: Current Tobacco User Alcohol Use: not indorsed Negative mg/dL (12/31/23 21:27) Illicit Drug Use: not indorsed Sexual Activity: not pertinent. last menstral period: Not applicable Other Topics of Concern: none ALLERGIES: Review of patient's allergies indicates: VITAMIN B12 1000MCG, PANTOPRAZOLE, AMOXICILLIN, FLONASE NASAL SOLUTION PREGABALIN, METHOCARBAMOL PHYSICAL EXAM: VITAL SIGNS: 140/83 (11/07/2024 08:55)118 (11/07/2024 08:55)100% (10/22/2024 11:28)98.6 F [37.0 C] (11/07/2024 08:55)20 (11/07/2024 08:55)The OBJECT WEIGHT LAST 3 was NOT found...Contact IRM. MAThe OBJECT was NOT found...Contact IRM.PAIN ASSESSMENTThe OBJECT was NOT found...Contact IRM. Measurement DT PAIN 11/07/2024 08:55 0 CONSTITUTIONAL: Anxious tremulous white female no acute distress, Non-toxic appearance but warm to the touch, alert and orient x 3, good fluent content speech. HENT: AT/NC,airway patent, oropharynx clear, TM's white and Shiny. EYES: PERRL, EOMI, Conj pink, sclera clear NECK: Normal range of motion, No tenderness, Supple, No stridor,No JVD or HJR No Lymph Adenopathy. CARDIOVASCULAR: Sinus tachycardia, no murmurs or rubs appreciated. PULMONARY/CHEST: CTA bilaterally, thorax stable without tenderness ABDOMEN:Flat, Bowel sounds normal,soft,nontender, No bruit, No Hetatosplenomegally or pulsatile midline mass. BACK: No tenderness, No CVA tenderness : Deferred RECTAL: Deferred EXTREMITIES:No gross deformity, Normal range of motion. No edema or point tenderness. Left lower extremity: Scars noted over the lateral calf, well- healed no erythema or warmth. Deep tendon reflexes 2+, no clonus appreciated LYMPHATIC: No LAD appreciated NEUROLOGIC: Alert & oriented x 3, Normal motor function, Normal gait, no ataxia, No focal deficits appreciated on cursory screening exam SKIN: Warm, Dry, No erythema, No rash LABS: Collection time: Nov 07, 2024@09:57 Test Name Result Units Range --------- ------ ----- ----- WBC 10.4 10*3/uL 3.6 - 11.2 RBC 4.99 10*6/uL 3.60 - 5.00 HGB 15.2 H g/dL 11.0 - 14.9 HCT 44.6 H % 32.6 - 43.4 MCV 89.4 fL 80.0 - 100.0 MCH 30.5 pg 27.0 - 34.0 MCHC 34.1 g/dL 33.0 - 36.0 RDW 12.6 % 11.8 - 15.1 PLT 386 10*3/uL 150 - 400 MPV 10.4 fL 7.5 - 11.2 NEUTROPHILS, AUTO % 68 % LYMPHOCYTES, AUTO % 24 % MONOCYTES, AUTO % 6 % EOSINOPHILS, AUTO % 1 % BASOPHILS, AUTO % 1 % NEUTROPHILS, ABSOLUTE 7.04 10*3/uL 2.10 - 8.00 LYMPHOCYTES, ABSOLUTE 2.50 10*3/uL 0.77 - 4.50 MONOCYTES, ABSOLUTE 0.66 10*3/uL 0.19 - 0.80 EOSINOPHILS, ABSOLUTE 0.09 10*3/uL 0.00 - 0.60 BASOPHILS, ABSOLUTE 0.09 10*3/uL 0.00 - 0.20 Collection time: Nov 07, 2024@09:57 Test Name Result Units Range --------- ------ ----- ----- SODIUM 140 mEq/L 136 - 145 POTASSIUM 3.6 mEq/L 3.5 - 5 CHLORIDE 105 mEq/L 98 - 107 UREA NITROGEN 20.2 mg/dL 9.0 - 25.0 CREATININE 0.84 mg/dL 0.6 - 1.1 CALCIUM 10.0 mg/dL 8.4 - 10.4 PROTEIN 7.9 g/dL 6 - 8.6 ALBUMIN 4.4 g/dL 3.4 - 5 ALKALINE PHOSPHATASE 84 U/L 40 - 150 ALT/SGPT 24 U/L 8 - 40 AST/SGOT 30 U/L 5 - 34 TOTAL BILIRUBIN 0.3 mg/dL 0.2 - 1.2 CARBON DIOXIDE 20 L mEq/L 22 - 31 GLUCOSE 125 H mg/dL 72 - 99 EGFR (CKD-EPI 2020) 85.7 Ref: >=60 Collection time: Nov 07, 2024@09:49 Test Name Result Units Range --------- ------ ----- ----- LIPASE 35 U/L 8 - 78 CPK 61 U/L 29 - 168 ETOHser <10 mg/dL 0 - 9 Collection time: Nov 07, 2024@09:49 Test Name Result Units Range --------- ------ ----- ----- PARAINF1 Not Detected Ref: Not Detected *Coronavirus HKU1 (BF) Not Detected Ref: Not Detected *Coronavirus NL63 (BF) Not Detected Ref: Not Detected *Coronavirus 229E (BF) Not Detected Ref: Not Detected PARAINF2 Not Detected Ref: Not Detected *Coronavirus OC43 (BF) Not Detected Ref: Not Detected PARAINF3 Not Detected Ref: Not Detected PARAINF4 Not Detected Ref: Not Detected BPERT BF Not Detected Ref: Not Detected BPARAPERT Not Detected Ref: Not Detected Chlam pneumo (BF) Not Detected Ref: Not Detected Mycoplasma pneumo Not Detected Ref: Not Detected *Adenovirus (BF) Not Detected Ref: Not Detected H. Metapneumovirus Not Detected Ref: Not Detected H. Rhino/Enterovirus Not Detected Ref: Not Detected *Influenza A (BF) Not Detected Ref: Not Detected *Influenza B (BF) Not Detected Ref: Not Detected Resp Sync Virus (BF) Not Detected Ref: Not Detected COVID-19 (BIOFIRE) Not Detected Ref: Not Detected Collection time: Nov 07, 2024@11:22 Test Name Result Units Range --------- ------ ----- ----- TSH 3.321 uIU/mL 0.47 - 5 RADIOLOGY: CHEST PORTABLE Exm Date: NOV 07, 2024@09:44 Req Phys: CARLSUKHDEEP Juani Loc: -EMERGENCY DEPT 2ND SHIFT (R Img Loc: -MAIN RADIOLOGY SUITE Service: Unknown Screen: Patient answered no [facility], [address] [place] [address] (Case [id number] COMPLETE) CHEST PORTABLE (RAD Detailed) CPT:52772 Proc Modifiers : Portable Reason for Study: , cough Clinical History: Cough and fever Report Status: Verified Date Reported: NOV 07, 2024 Date Verified: NOV 07, 2024 Assistant Offset Press Operator E-Sig:/ES/SYED CMGINNIS MD Report: Case #[id number]. Chest examination. COMPARISON: 02/26/2024. Finding: Portable AP view of the chest examination shows normal cardiac and aortic shadow. Trachea is in the midline. Lungs are well aerated. No evidence of pulmonary vascular congestion, consolidation or mass. No evidence of pleural effusion or pneumothorax. Impression: No active cardiopulmonary disease. Primary Interpreting Staff: SYED MCGINNIS MD, Staff Physician - Radiologist (Assistant Offset Press Operator) /TS ECG IMPRESSION: N/A ED COURSE & MEDICAL DECISION MAKIN:04 AM: Still anxious, nauseous improved with Zofran, tachycardia is resolved with a liter of LR, headache still present despite 1 g of IV Tylenol. Patient had mild improvement with 5 mg of Valium IV push. Will repeat the dose and monitor while awaiting labs. 12:27 PM: Patient hemodynamically normal and stable unremarkable exam. Still complaining of a mild headache, cells are provided a urine specimen. Will give the patient LR 125 cc/h and Toradol 15 mg IV push. Patient's TSH within normal limits serotonin pending. 1:43 PM: Patient still complaining of diffuse headache with pain radiating to her neck consistent with tension headache. Patient states she has a history of migraine headaches states this is different than her usual. Patient's exam is nonfocal, will give the patient a migraine cocktail, CAT scan woman just to rule out possible space-occupying lesion or bleed, plan to admit to medicine for observation for 24 hours. Emergency Department (ED) Medical Decision Making (MDM) Category: Medical Decision Making (MDM) Summary: Patient is a 49 year old with care impacted by Hypothyroidism, migraine headaches, obesity status post gastric bypass surgery, lumbar radiculopathy, status post compartment syndrome both lower extremities status post release, fibromyalgia, anxiety who presents with Not feeling well These symptoms were concerning for Serotonin syndrome versus neuroleptic malignant syndrome versus anxiety versus COVID versus influenza While in the ED, the patient Very anxious female with tachycardia that resolved with IV fluids, patient's nausea improved with antiemetics however progressive complaints of headache radiating from her occiput to her forehead, atypical from her previous migraines. Patient had some improvement with prochlorperazine and Benadryl. However due to the patient's still unresolved symptoms she will be admitted for observation until her Cerner troponin level returns. Patient was reassessed and found to: Require admission High Medical Decision Making: Category 1: I have reviewed prior external note(s) from the following sources: Inpatient records Office records Prior outpatient labs Prior outpatient radiology Primary care record I have ordered unique test(s) during this ED visit as documented in the note. I have reviewed the results of unique test(s) ordered and resulted during this visit. Results were discussed with the patient or their surrogate. 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 Nursing notes, medications, vital signs, allergies and pertinent labs & imaging studies reviewed (see chart for details) with patient/family. Stable, alert, nontoxic, nonfocal with clinically apparent SEASONER SERVICE/TIME: 10:00 AM: Reviewed patient's medications with outpatient pharmacy for possible medication interaction causing serotonin syndrome. Was noted that the patient is trazodone and duloxetine (which she is chronically on) may cause increased serotonin levels. Her gabapentin, and tizanidine, per pharmacy should not be causing any such reaction. 3:20 PM: Medicine2 accept the patient, requesting EKG. MEDICATIONS GIVEN IN ED: [X] YES [ ] NO 9:40 AM: (1) LR wide open x 1 L. Tachycardia (2) Zofran 4 mg IV push for nausea (2) Tylenol 1 g IV piggyback for headache 10:00 AM: (1) Valium 5 mg IV push for agitation 11:04 AM: (1) normal saline 125 cc/h. (2) Valium 5 mg IV push 12:26 PM: (1) LR 125 cc/h (2) Toradol 15 mg IV push 1:43 PM: (1) prochlorperazine 10 mg IV push (2) Benadryl 25 mg IV push DIFFERENTIAL DIAGNOSES CONSIDERED: COVID versus flu versus pneumonia versus urinary tract infection versus serotonin syndrome versus neuroleptic malignant syndrome DECISION to ADMIT : 9:05 AM DISPOSITION CONDITION:[ X ] Improved [ ] Unchanged [ ] Deteriorated CLINICAL IMPRESSION: 1 -headache 2 -generalized malaise 3 - DISCHARGE INSTRUCTIONS AND PATIENT-DIRECTED FOLLOW-UP RECOMMENDATIONS: DIET: low salt ACTIVITY: up ad daniel NEW MEDS: MEDICATION RECONCILIATION: CONTINUE ALL PRESCRIBED MEDICATIONS DIRECTED FOLLOW-UP WITH PRIMARY HOUSING PROJECT MANAGER/SPECIALIST: 1-2 days RETURN TO EMERGENCY: if any worries or [...] (EXTERNAL USE ONLY) Indication: FOR CONTACT DERMATITIS /tamera/ SUKHDEEP HENRY MD STAFF PHYSICIAN Signed: 11/07/2024 15:38 Receipt Acknowledged By: 11/12/2024 14:59 /tamera/ KATELYNN REYES REGISTERED NURSE 12/12/2024 14:24 /tamera/ VERNA BARRERA MD 11/07/2024 ADDENDUM STATUS: COMPLETED CT HEAD W/O CONT Exm Date: NOV 07, 2024@16:16 Req Phys: SUKHDEEP HENRY Loc: BIN-EMERGENCY DEPT 2ND SHIFT (R Img Loc: BIN-CT IMAGING BIN Service: Unknown Screen: Patient answered no [facility], [address] [place] [address] (Case [id number] COMPLETE) CT HEAD W/O CONT (CT Detailed) CPT:46012 Reason for Study: headache Clinical History: Responsible Attending: Carl Attending Contact Number: [id number] Resident Contact Number: [...] 07, 2024 Date Verified: NOV 07, 2024 Assistant Offset Press Operator E-Sig:/ES/Geneva Egan MD Report: CT HEAD W/O CONT CASE #: [id number] DATE:11/07/2024 4:46 PM CLINICAL HISTORY:headache COMPARISON: 6 [...] Primary Interpreting Staff: Geneva Egan MD, Radiologist (Assistant Offset Press Operator) /TE URINALYSIS (STL-PB) URINE WC ONCE LB #[id number] Collection time: Nov 07, 2024@12:35 Test Name Result Units Range --------- ------ ----- ----- URINE COLOR Yellow Ref: Yellow APPEARANCE Turbid Ref: Clear U.PH 6.0 5.0 - 8.0 U.BILIRUBIN Negative mg/dL Ref: Negative U.NITRITE Negative mg/dL Ref: Negative URINE RBC/HPF 11 H /HPF 0 - 5 URINE WBC/HPF 6 H /HPF 0 - 5 SQUAMOUS EPITH. 2 /HPF 0 - 5 MUCUS FEW /LPF Ref: Negative-Rare HYALINE CASTS 1 /LPF 0 - 5 URN.GLUCOSE Normal mg/dL Ref: Negative URN.PROTEIN 30 H mg/dL Negative - 20 URN.UROBILINOGEN Normal mg/dL Ref: Normal URN.BLOOD Negative mg/dL Ref: Negative-Trace URN.KETONES Negative mg/dL Ref: Negative-Trace URN.LEUK.EST. 25 H mg/dL Ref: Negative-Trace URN.SPECIFIC GRAVITY 1.023 1.005 - 1.029 /es/ SUKHDEEP HENRY MD STAFF PHYSICIAN Signed: 11/07/2024 17:51 SUKHDEEP HENRY [facility]
--- OUTSIDE RECORDS SUMMARY | 2025-03-22 21:59 | XMS_ITS | Encounter Summary ---
Author Name [facility] [place] [facility] [place] Address [address] [place] [address] Care Team Providers Care Correspondence Review Clerk Name Role Phone VERNA BARRERA Primary Care [...] AID (WNR) Oct 23, 2016 MEDICAI D [id number] [phone] GERDA NUNES PATIENT Selected Encounter This section includes the information on record at [place] for the Encounter. Date/Time Encounter Type Encounter Description Reason Provider Source May 02, 2024 09:40 PM Outpatient Encounter COMMUNITY CARE CONSULT KELLY PAULINO Cecile Encounter Template Text not used by [place] Plan of Treatment: Future Appointments (+ 6 months) and Future Tests (+/- 45 days) The Plan of Treatment section includes future care activities for the patient from all [facility] treatment[facility]ilities. This section includes future appointments and future orders which are active, pending or scheduled. Future Appointments This section includes appointments that were scheduled to occur 6 months from the date of the Encounter, up to a maximum of 20 appointments. The data comes from all [place] treatment facilities. Appointment Date/Time Appointment Type Appointme nt Facility Name May 07, 2024 08:00 AM AMBULATORY - NONE [facility] May 07, 2024 08:30 AM AMBULATORY - NONE . [facility] May 21, 2024 11:00 AM AMBULATORY - MEDICINE [facility] May 22, 2024 02:00 PM AMBULATORY - PSYCHIATRY [facility] Jun 07, 2024 07:44 AM AMBULATORY - MEDICINE [facility] Jun 27, 2024 07:15 PM AMBULATORY - NONE [facility] Jul 08, 2024 08:44 PM AMBULATORY - MEDICINE [facility] Jul 09, 2024 08:30 AM AMBULATORY - MEDICINE [facility] Jul 16, 2024 11:43 AM AMBULATORY - MEDICINE [facility] Jul 22, 2024 10:00 AM AMBULATORY - MEDICINE [facility] Oct 22, 2024 11:30 AM AMBULATORY - MEDICINE [facility] Social History: Smoking Status (Most current) and Tobacco Use (All prior to encounter date) This section includes the most current, and the historical, smoking and tobacco- related health factors from the [place] facility where the Encounter took place. Current Smoking Status This section includes the most current smoking, or tobacco-related health factor, from the [place] facility where the Encounter took place. Date/Time Current Smoking Status Comment Jessica ity Nov 09, 2023 06:45 AM ORYX ADMIT TOBACCO SCREEN NO [facility] Tobacco Use History This section includes a history of the smoking, or tobacco-related health factors, that were collected on or before the date of the Encounter. The data comes from the [place] facility where the Encounter took place. Date/Time Smoking Status/Tobacco Use Comment F acility May 25, 2022 11:42 AM ORYX ADMIT TOBACCO SCREEN NO [facility] May 13, 2022 08:14 PM ORYX ADMIT TOBACCO SCREEN NO [facility] Apr 07, 2022 03:34 AM ORYX ADMIT TOBACCO SCREEN REFUSED [facility] Dec 20, 2021 12:44 PM ORYX ADMIT TOBACCO SCREEN NO [facility] Aug 23, 2021 08:22 PM ORYX ADMIT TOBACCO SCREEN NO [facility] Aug 12, 2021 06:24 PM ORYX ADMIT TOBACCO SCREEN NO [facility] May 12, 2008 06:16 PM LIFETIME NON-USER OF TOBACCO [facility] Jun 28, 2007 01:18 PM LIFETIME NON-USER OF TOBACCO [facility] May 03, 2006 10:56 AM LIFETIME NON-TOBACCO USER [facility] Dec 03, 2003 08:16 AM LIFETIME NON-TOBACCO USER [facility] Radiology Reports: +/- 30 days [...] the Encounter. The data comes from all [facility] facilities. Date/Time Radiology Report Provider Source May 07, 2024 08:11 AM [place] HEPATOBILIARY - P: GERDA NUNES DEC [id number] -1975 F Exm Date: MAY 07, 2024@08:11 Req Phys: JOSE BARRERAIDA A Pat Loc: -[facility] PACT 6 PCP (Req' Img Loc: -NUCLEAR MEDICINE Service: Unknown Screen: Patient answered no [facility], [address] [place] [address] (Case [id number] COMPLETE) HEPATOBILIARY SYSTEM IMAGING (NM Detailed) CPT:04888 Reason for Study: RUQ pain , GB appears normal on previous US and recent CT ABD (Case 1119 COMPLETE) TC-99M MEBROFENIN(CHOLETEC), PER (NM Detailed) CPT:A9537 (Case 1120 COMPLETE) NON-HEU TC-99M ADD-ON PER STUDY D(NM Detailed) CPT:Q9969 (Case 1355 COMPLETE) CCK,KINEVAC (NM Detailed) CPT:J3490 Clinical History: PATIENT HEIGHT: 62 in [157.5 cm] (11/24/2023 15:33) PATIENT WEIGHT: 210.3 lb [95.39 kg] (01/24/2024 13:56) Report Status: Verified Date Reported: MAY 07, 2024 Date Verified: MAY 07, 2024 Compotype Operator E-Sig:/ES/VANCE MCKEON M.D. Report: PATIENT NAME: GERDA NUNES. CASE #: [id number], [id number], [id number], [id number]. EXAMINATION: Radionuclide Hepatobiliary Scan with CCK Stimulation. HISTORY: 48 years old female patient with chronic right upper quadrant pain is present today for HIDA scan to rule out acute/chronic cholecystitis. TECHNIQUE: A dose of 5.6 mCi Mebrofenin was administered IV. Dynamic anterior images of the abdomen were obtained for 1 hour. A static right lateral view was obtained. A dose of 1.9 mg CCK analog was infused IV with dynamic anterior imaging continued for 60 minutes. COMPARISON: No prior is available for comparison. RUQ ultrasound on 05/07/2024 is reviewed. FINDINGS: There is good clearance of the blood pool. The liver has uniform radiotracer uptake with no defects. There is prompt excretion into the biliary tree. The Common Bile Duct is visualized by 10 minutes. The gallbladder begins to fill at 10 minutes and is well filled by 45 minutes. The biliary to bowel transit time is 30 minutes. There is no evidence of enterogastric reflux. There is progressive emptying of activity from the gallbladder during CCK administration. The calculated gallbladder ejection fraction is 99 %. Impression: 1. Normal hepatobiliary scan. The biliary tree is patent which virtually excludes acute cholecystitis 2. Gallbladder contractility with EF 99%. No findings to support chronic cholecystitis or biliary dyskinesis. 3. No evidence of enterogastric reflux. Diagnostic code: 1000 Dictated by Jessika Mauricio MD (anesthesiology resident ). I, Vance Mckeon, have reviewed the images and report and concur with these findings. Primary Interpreting Staff: VANCE MCKEON M.D., STAFF PHYSICIAN - DIAGNOSTIC IMAGING (Compotype Operator) Primary Interpreting Resident: JESSIKA MAURICIO, Resident Physician /VANCE COOK [facility] May 07, 2024 07:45 AM US ABDOMEN LIMITED W/BLOOD FLOW DOPPLER: GERDA NUNES DEC [id number] -1975 F Exm Date: MAY 07, 2024@07:45 Req Phys: VERNA BARRERA Loc: -[facility] VV PACT 6 PCP (Req' Img Loc: BIN-ULTRASOUND BIN Service: Unknown Screen: Patient answered no [facility], [address] [place] [address] (Case [id number] COMPLETE) US ABDOMEN LTD, SINGLE ORG OR WILMER(US Detailed) CPT:05476 Reason for Study: RUQ pain (Case 1075 COMPLETE) US BLOOD FLOW ABD/RENAL (LTD) (US Detailed) CPT:34911 Clinical History: Organ to Image: Gallbladder Reason for exam: CHRONIC RuQ PAIN. ct abd normal GB. has RUQ US in the past with normal GB findings. r/o chronic cholecystitis. this RUQ US is required within 7 days of HIDA scan. Report Status: Verified Date Reported: MAY 07, 2024 Date Verified: MAY 07, 2024 Compotype Operator E-Sig:/ES/INDIO SHARMA Report: Case [id number], [id number]. US ABDOMEN LTD, SINGLE ORG OR QUADRANT, US BLOOD FLOW ABD/RENAL (LTD). Technique: Real-time ultrasound examination of the abdomen was obtained in multiple projections using grayscale and Doppler ultrasound Comparison: CT abdomen 11/19/2023, Abdominal ultrasound 05/25/2022 Indication: Chronic right upper quadrant pain, elevated LFTs. Rule out chronic cholecystitis. Right upper quadrant ultrasound required within 7 days of HIDA scan. History: History of gastric bypass Findings: Pancreas: Incompletely visualized. The visible portions of the pancreas appear normal. Liver: The hepatic echotexture and echogenicity are normal. No focal liver masses are identified. Liver measures 15 cm. Portal vein diameter 8.1 mm. Previously described steatosis in liver not visualized. Gallbladder: No gallbladder calculi are present. No gallbladder wall thickening or pericholecystic fluid is present. The sonographic Calzada's sign is negative. Gallbladder wall thickness measures 2.2 mm. Biliary system: No dilatation of the intrahepatic biliary tree is seen. The common duct is within normal limits measuring 4 mm. Partial visualization of the right kidney shows normal echogenicity and no evidence of hydronephrosis. Doppler evaluation: Patent hepatic veins. Patent portal vein with appropriate hepatopedal flow. Impression: 1. Normal appearance of gallbladder, no visualized calculi, pericholecystic fluid, or evidence of cholecystitis. CBD diameter within normal limits. 2. Normal appearance of liver; previously described steatosis not appreciated on today's examination. I, Indio Sharma, have reviewed the images and report and concur with these findings. Primary Interpreting Staff: INDIO SHARMA, Diagnostic Radiologist (Compotype Operator) Primary Interpreting Resident: LYDIA PENNINGTON, Resident Physician /INDIO [facility] Apr 18, 2024 10:53 AM SPINE SI JOINTS 3 OR MORE VIEWS: GERDA NUNES [id number] -1975 F Exm Date: APR 18, 2024@10:53 Req Phys: GEOFF LA Loc: [facility]-PAIN MGMT TEAM P3 (Req'g Lo Img Loc: [facility] RADIOLOGY Service: Unknown Screen: Patient answered no [facility] [address] [place] [address] (Case [id number] COMPLETE) SPINE SI JOINTS 3 OR MORE VIEWS (RAD Detailed) CPT:31048 Reason for Study: L.. SI pain Clinical History: Report Status: Verified Date Reported: APR 18, 2024 Date Verified: APR 18, 2024 Compotype Operator E-Sig:/ES/BRANDY BELLE Report: INDICATION: L.. SI pain COMPARISON: 02/21/2018 TECHNIQUE: Sacroiliac joints 3 views Impression: Significant changes from prior exam. No abnormal bony erosions. No abnormal sclerosis. No ankylosis. Primary Interpreting Staff: BRANDY BELLE, RADIOLOGIST (Compotype Operator) /BRANDY [facility]E [facility] Apr 18, 2024 08:02 AM SPINE LUMBOSACRAL 2 OR 3 VIEWS: MANJUDEWEYA [id number] -1975 F Exm Date: APR 18, 2024@08:02 Req Phys: VERNA BARRERA Pat Loc: [facility] PACT PHONE YANNA 3 (Re Img Loc: [facility] Service: Unknown Screen: Patient answered no [facility], [facility] [address] [place] [address] (Case [id number] COMPLETE) SPINE LUMBOSACRAL 2 OR 3 VIEWS (RAD Detailed) CPT:31185 Reason for Study: back pain Clinical History: Report Status: Verified Date Reported: APR 18, 2024 Date Verified: APR 18, 2024 Compotype Operator E-Sig:/ES/BRANDY BELLE Report: INDICATION: back pain COMPARISON: 02/20/2019 TECHNIQUE: Lumbar spine 3 views Impression: 5 nonrib-bearing bearing vertebral bodies. Lowest fully formed intervertebral disc space is designated as L5-S1. Normal vertebral body heights and intervertebral disc spaces. Primary Interpreting Staff: BRANDY BELLE, RADIOLOGIST (Compotype Operator) /BRANDY [facility]E [facility] Apr 18, 2024 08:02 AM SPINE THORACIC AP& LAT&SWIM VIEWS: MANJUGERDA [facility] [id number] -1975 F Exm Date: APR 18, 2024@08:02 Req Phys: BARRERA,VERNA A Pat Loc: [facility] PACT PHONE YANNA 3 (Re Img Loc: [facility] Service: Unknown Screen: Patient answered no [facility], [facility] [address] [place] [address] (Case [id number] COMPLETE) SPINE THORACIC AP&LAT&SWIM VIEWS (RAD Detailed) CPT:14910 Reason for Study: back pain Clinical History: Report Status: Verified Date Reported: APR 19, 2024 Date Verified: APR 19, 2024 Compotype Operator E-Sig:/ES/SIMI KENYON MD Report: AP and lateral views. No fracture or malalignment. Pedicles and spinous processes are normal. Scattered osteophytes and mild disc space narrowing in the mid and lower thoracic spine. Impression: Mild thoracic spondylosis Primary Interpreting Staff: SIMI KENYON MD, Radiologist (Compotype Operator) /SIMI [facility]ACK[facility] Encounter Notes: All associated encounter notes This section contains the clinical notes associated to the Encounter. Date/Time Encounter Note(s) Provider Source May 02, 2024 09:40 PM NONVA NOTE: LOCAL TITLE: COMMUNITY CARE-CARE COORDINATION PLAN NOTE [address] STANDARD TITLE: NONVA NOTE DATE OF NOTE: MAY 02, 2024@21:40 ENTRY DATE: MAY 02, 2024@21:40:58 AUTHOR: KELLY PAULINO EXP COSIGNER: URGENCY: STATUS: COMPLETED Community Care Consult: COMMUNITY CARE-MRI [facility] 05/01/2024 Consult No: [id number] [facility] Referral #: [id number] Chief Complaint: backache Patient Admitted? No Level of Care Coordination Moderate Care Coordination was determined from: Chart Review Facility Community Care Office Contact Care Coordination Point of Contact: Kelly Paulino RN Phone Number: [phone] Services: Basic Care Coordination Services Monitoring and coordination of Rehab/PT Services Direct communication to referring provider Care management, if appropriate Plan: Send to [facility]. Fax authorization to provider. Follow up with provider or for scheduling update. Follow up with after appointment. Retrieve records for visit. Review imaging report, document any significant finding. Send to scanner. Request disc of images. Assess if any other care is needed. /tamera/ KELLY PAULINO Registered Nurse Signed: 05/02/2024 21:44 KELLY PAULINO [facility]
--- OUTSIDE RECORDS SUMMARY | 2025-03-22 21:59 | XMS_ITS | Encounter Summary ---
Author Name [facility] [place] Address [address] [place] [address] Care Team Providers Care Oyster Shipper Name Role Phone VERNA BARRERA Primary Care [...] AID (WNR) Oct 23, 2016 MEDICAI D [id number] [phone] GERDA NUNES PATIENT Selected Encounter This section includes the information on record at [place] for the Encounter. Date/Time Encounter Type Encounter Description Reason Pro vider Source Feb 17, 2025 08:17 AM Outpatient Encounter ADMIN PAT ACTIVTIES (MASNONCT) IHE Encounter Template Text not used by [place] Plan of Treatment: Future Appointments (+ 6 [...] 20 appointments. The data comes from all [place] treatment facilities. Appointment Date/Time Appointment Type Appointme nt Facility Name Apr 18, 2025 02:30 PM AMBULATORY - PSYCHIATRY [facility] Encounter Notes: All associated encounter notes This section contains the clinical notes associated to the Encounter. Date/Time Encounter Note(s) Provider Source Feb 17, 2025 08:18 AM ACCOUNTING OF DISC LOSURES NOTE: LOCAL TITLE: STATE PRESCRIPTION DRUG MONITORING PROGRAM STANDARD TITLE: ACCOUNTING OF DISCLOSURES NOTE DATE OF NOTE: FEB 17, 2025@08:18:13 ENTRY DATE: FEB 17, 2025@08:18:13 AUTHOR: CECIL BARILLAS COSIGNER: URGENCY: STATUS: COMPLETED This PDMP query was submitted by Simi Barillas. The clinical justification for this PDMP query is to review controlled substances prescribed outside of the [facility], and any additional information that may become available, as an important component of standard clinical care, and in accordance with [facility] policy. Patient information was shared with the PDMP [employer]. No prescription(s) for controlled substances outside the [facility] were found in the last 90 days. /tamera/ SIMI BARILLAS CLINICAL DELIVERY SUPERVISOR Signed: 02/17/2025 08:18 SIMI BARILLAS [facility]
--- OUTSIDE RECORDS SUMMARY | 2025-03-22 22:00 | XMS_ITS | Encounter Summary ---
Author Name [facility] [facility] [place] [facility] [place] [facility] [place] Address [address] [place] [address] Care Team Providers Care Structural Engineer Name Role Phone VERNA BARRERA Primary Care [...] AID (WNR) Oct 23, 2016 MEDICAI D [id number] REBECA NUNES PATIENT Selected Encounter This section includes the information on record at [place] for the Encounter. Date/Time Encounter Type Encounter Description Reason Provider Source Jan 02, 2025 01:00 PM PSYTX W PT 30 [facility]ES [facility] - IND ICD-10-CM F41.1 Generalized anxiety disorder CONCEPCIÓN STOVER Encounter Template Text not used by [place] Assessments - Encounter Diagnoses This section includes the primary and secondary diagnoses documented for the Encounter. Date/Time Primary/Secondary Diagnosis Diagnosis Name Provider Source Jan 02, 2025 02:11 PM PRIMARY Generalized anxiety disorder CONCEPCIÓN STOVER [facility] Jan 02, 2025 02:11 PM SECONDARY Insomnia, unspecified CONCEPCIÓN STOVER [facility] Jan 02, 2025 02:11 PM SECONDARY Major depressive disorder, recurrent, [facility] Jan 02, 2025 02:11 PM SECONDARY Panic disorder [episodic paroxysmal anxiety] [facility] Plan of Treatment: Future Appointments (+ 6 months) and Future Tests (+/- 45 days) The Plan of Treatment section includes future care activities for the patient [facility] [place] [facility] This section includes future appointments and future orders which are active, pending or scheduled. Future Appointments This section includes appointments that were scheduled to occur 6 months from the date of the Encounter, up to a maximum of 20 appointments. The data comes from all [place] treatment facilities. Appointment Date/Time Appointment Type Appointme nt Facility Name Jan 07, 2025 11:30 AM AMBULATORY - MEDICINE [facility] Apr 18, 2025 02:30 PM AMBULATORY - PSYCHIATRY [facility] Lab Results: +/- 30 days of the encounter This section includes the Chemistry and Hematology Lab Results on record with [place] for the patient. Radiology Reports and Pathology Reports are provided separately, in subsequent sections. Lab Results This section contains the Chemistry/Hematology Results that were resulted 30 days before or 30 daysafter the date of the Encounter. Date/Time Source Result Type Result - Unit Interpretation Reference Range Specimen Type Comment Jan 07, 2025 10:20 AM [facility] FERRITIN SERUM Specimen Type: SERUM No comment entered. Ordering Provider: EZ TAPIA Report Released Date/Time: Oct 22, 2024 02:14 PM Reporting Lab: [facility] [address] [facility] [address] Performing Lab: [address] [address] FERRITIN 174.43 ng/mL Jan 07, 2025 10:20 AM [facility] IRON/TIBC PROFILE SERUM Specimen Type: SERUM No comment entered. Ordering Provider: EZ TAPIA Report Released Date/Time: Oct 22, 2024 02:14 PM Reporting Lab: [facility] [address] [facility] [address] Performing Lab: [facility] [address] TIBC 323 ug/dL 250-450 TRANSFERRIN 258 mg/dL 173-360 IRON SATURATION 38 20-50 IRON 122 ug/dL 50-170 Jan 07, 2025 10:20 AM [facility] CBC BLOOD Specimen Type: BLOOD No comment entered. Ordering Provider: EZ TAPIA Report Released Date/Time: Oct 22, 2024 02:14 PM Reporting Lab: [facility] [address] Performing Lab: [place] [address] [facility] [address] WBC 5.6 10*3/uL 3.6-11.2 RBC 4.59 10*6/uL 3.60-5.00 HGB 14.0 g/dL 11.0-14.9 HCT 41.1 32.6-43.4 MCV 89.5 fL 80.0-100.0 MCH 30.5 pg 27.0-34.0 MCHC 34.1 g/dL 33.0-36.0 PLT 296 10*3/uL 150-400 MPV 9.9 fL 7.5-11.2 RDW 12.6 11.8-15.1 LYMPHOCYTES, AUTO % 38 MONOCYTES, AUTO % 7 NEUTROPHILS, AUTO % 52 EOSINOPHILS, AUTO % 2 BASOPHILS, AUTO % 1 LYMPHOCYTES, ABSOLUTE 2.11 10*3/uL 0.77- 4.50 MONOCYTES, ABSOLUTE 0.38 10*3/uL 0.19-0. 80 NEUTROPHILS, ABSOLUTE 2.90 10*3/uL 2.10- 8.00 EOSINOPHILS, ABSOLUTE 0.13 10*3/uL 0.00- 0.60 BASOPHILS, ABSOLUTE 0.06 10*3/uL 0.00-0. 20 Dec 17, 2024 07:11 PM [facility] COMPREHENSIVE METABOLIC PANEL PLASMA Specimen Type: PLASMA Comment: No hemolysis noted. Ordering Provider: VICTOR M HOUGH Report Released Date/Time: Dec 17, 2024 06:44 PM Reporting Lab: [address] [address] Performing Lab: [address] [address] CREATININE 0.89 mg/dL 0.6-1.1 UREA NITROGEN 17.8 mg/dL 9.0-25.0 GLUCOSE 103 mg/dL H 72-99 SODIUM 138 meq/L 136-145 POTASSIUM 4.2 meq/L 3.5-5 CHLORIDE 104 meq/L 98-107 CARBON DIOXIDE 23 meq/L 22-31 CALCIUM 9.7 mg/dL 8.4-10.4 PROTEIN 7.5 g/dL 6-8.6 ALBUMIN 4.2 g/dL 3.4-5 TOTAL BILIRUBIN 0.3 mg/dL 0.2-1.2 ALKALINE PHOSPHATASE 85 U/L 40-150 AST/SGOT 42 U/L H 5-34 ALT/SGPT 24 U/L 8-40 EGFR (CKD-EPI 2020) 79.9 >60 Dec 17, 2024 07:11 PM [facility] CBC BLOOD Specimen Type: BLOOD No comment entered. Ordering Provider: VICTOR M HOUGH Report Released Date/Time: Dec 17, 2024 06:44 PM Reporting Lab: [address] [address] Performing Lab: [address] [address] WBC 7.5 10*3/uL 3.6-11.2 RBC 4.79 10*6/uL 3.60-5.00 HGB 14.5 g/dL 11.0-14.9 HCT 43.1 32.6-43.4 MCV 90.0 fL 80.0-100.0 MCH 30.3 pg 27.0-34.0 MCHC 33.6 g/dL 33.0-36.0 PLT 312 10*3/uL 150-400 MPV 10.5 fL 7.5-11.2 RDW 12.2 11.8-15.1 LYMPHOCYTES, AUTO % 42 MONOCYTES, AUTO % 7 NEUTROPHILS, AUTO % 48 EOSINOPHILS, AUTO % 2 BASOPHILS, AUTO % 1 LYMPHOCYTES, ABSOLUTE 3.17 10*3/uL 0.77- 4.50 MONOCYTES, ABSOLUTE 0.49 10*3/uL 0.19-0. 80 NEUTROPHILS, ABSOLUTE 3.60 10*3/uL 2.10- 8.00 EOSINOPHILS, ABSOLUTE 0.15 10*3/uL 0.00- 0.60 BASOPHILS, ABSOLUTE 0.08 10*3/uL 0.00-0. 20 Dec 17, 2024 07:11 PM [facility] TROPONIN I PLASMA Specimen Type: PLASM A Comment: No hemolysis noted. Ordering Provider: VICTOR M HOUGH Report Released Date/Time: Dec 17, 2024 06:44 PM Reporting Lab: [address] [address] Performing Lab: [address] [address] TROPONIN I <0.010 ng/mL 0-0.033 Encounter Notes: All associated encounter notes This section contains the clinical notes associated to the Encounter. Date/Time Encounter Note(s) Provider Source Jan 02, 2025 02:22 PM PHYSICIAN LETTERS: LOCAL TITLE: PHYSICIAN LETTERS STANDARD TITLE: PHYSICIAN LETTERS DATE OF NOTE: JAN 02, 2025@14:22 ENTRY DATE: JAN 02, 2025@14:23:36 AUTHOR: JAMAAL MARTELL COSIGNER: URGENCY: STATUS: COMPLETED [address] [address] [facility]PARTMENT OF [facility] [address] [place] [address] Patient Name: Rebeca Nunes : 1974 Date: 01/02/2025 This letter is being written on your behalf for you to disperse. Ms. Nunes is being treated at the [facility] and having an emotional support animal would likely benefit her mental health. She has found her animal to help with her symptoms immensely. Thank you. Sincerely, Concepción Martell MD Letter to be sent to patient. Sincerely, CONCEPCIÓN MARTELL Staff Psychiatrist, BENITO NUNES,REBCEA ESSIEJAMAAL [facility] Jan 02, 2025 01:05 PM PSYCHIATRY NOTE: LOCAL TITLE: PSYCHIATRY ST STANDARD TITLE: PSYCHIATRY NOTE DATE OF NOTE: JAN 02, 2025@13:05 ENTRY DATE: JAN 02, 2025@13:05:52 AUTHOR: JAMAAL MARTELL EXP COSIGNER: URGENCY: STATUS: COMPLETED PSYCHIATRY PROGRESS NOTE JAN 02, 2025 Name: REBECA NUNES Age: 49 Race: WHITE Sex: FEMALE Service connection: Service Connected: 20% Rated Disabilities: LOWER LEG CONDITION (10% [place]) SYNOVITIS (10% [place]) Consent: [place] verbally consents to a clinical video telehealth follow-up appointment. Address: [address] [place] [address] Phone number: Survey: patient alone Lock: The virtual conference room was locked. EMERGENCY PLAN In the event of an emergency, the [place] or family will call emergency services, if capable. Teleprovider will remain in the virtual medical room until emergency response arrives and handoff to emergency services is complete. If is unable to make emergency call, Teleprovider is to call the national E911 service at [phone] and ask to be connected to emergency services for the 's location. Crisis Hotline: [phone] [employer] ([employer]): [phone] or [phone] ALLERGIES: VITAMIN B12 1000MCG, PANTOPRAZOLE, AMOXICILLIN, FLONASE NASAL SOLUTION PREGABALIN, METHOCARBAMOL --------- MEDICATIONS: Active Outpatient Medications (including Supplies): Active [...] ONE CAPSULE BY MOUTH ONCE A ACTIVE (S) DAY DO NOT ABRUPTLY DISCONTINUE MEDICATION. TO BE TAKEN ALONG WITH 30MG FOR TOTAL OF 90MG DAILY Indication: FOR DEPRESSION 4) FOLIC ACID 1MG TAB TAKE ONE TABLET BY MOUTH ONCE A DAY ACTIVE Indication: FOR FOLIC ACID SUPPLEMENTATION 5) GABAPENTIN 300MG CAP TAKE ONE CAPSULE BY MOUTH THREE TIMES A ACTIVE DAY NEEDED Indication: FOR PAIN 6) HYDROXYZINE HCL 25MG TAB TAKE ONE TABLET BY MOUTH THREE ACTIVE TIMES A DAY NEEDED *MAY CAUSE DROWSINESS* Indication: FOR ANXIETY 7) LEVOTHYROXINE NA 175MCG TAB TAKE ONE TABLET BY MOUTH EVERY ACTIVE MORNING BEFORE A MEAL TAKE 30 MINUTES BEFORE FOOD. TAKE SEPARATELY FROM ALL OTHER MEDICATIONS. Indication: FOR HYPOTHYROIDISM 8) LIDOCAINE 5% OINT APPLY LIGHTLY TO AFFECTED AREA(S) TWICE ACTIVE DAILY NEEDED Indication: FOR PAIN 9) NALOXONE HCL 4MG/SPRAY SOLN NASAL SPRAY USE 1 SPRAY (4MG) ACTIVE INTO ONE NOSTRIL ONLY ONE-TIME DO NOT PRIME NASAL SPRAY. SPRAY ONE DOSE IN ONE NOSTRIL, GIVE ADDITIONAL DOSE IF PATIENT DOES NOT START BREATHING WITHIN 2-3 MINUTES OR STOPS BREATHING AGAIN. CALL 911. IF USED, NOTIFY PROVIDER. Indication: FOR OPIOID OVERDOSE 10) SYRINGE 3ML/NDL 23G 1.5IN USE 1 SYRINGE INTRAMUSCULARLY ACTIVE EVERY 2 WEEKS Indication: FOR INJECTION 11) TIZANIDINE HCL 4MG TAB TAKE ONE TABLET BY MOUTH THREE TIMES ACTIVE A DAY NEEDED Indication: FOR SPASTICITY 12) TRAZODONE HCL 100MG TAB TAKE ONE TABLET BY MOUTH AT BEDTIME ACTIVE NEEDED Indication: FOR INSOMNIA No medications found. Reviewed, discussed and updated the current medication list with the [place]. 1) Family history of ischemic heart disease (SNOMED CT 612307478) 2) Migraine (SNOMED CT 70577774) 3) Vitamin D deficiency 4) Hypothyroidism 5) Low back pain 6) Depression 7) Mastodynia 8) Lumbar radiculopathy 9) Irritable bowel syndrome characterized by alternating bowel habit 10) Fibromyalgia 11) Chronic pain in female pelvis 12) Kidney stone 13) Insomnia 14) Compartment syndrome 15) Obesity ([facility] [id number]) 16) Arthritis 17) Intermittent palpitations 18) Chronic obstructive lung disease 19) Obstructive sleep apnea of adult 20) Poor pelvic muscle tone 21) Cervicalgia 22) Bacterial cellulitis 23) Overactive bladder 24) Iron deficiency Chief Complaint: I am doing okay, but just tired HPI: --- REBECA NUNES is a 49 year old WHITE FEMALE presenting for psychiatric follow up appointment. BRIEF SUMMARY: Has a history of depression and anxiety, transferring her care from . h/o gastric bypass surgery First seen by this provider:05/22/2024 C-SSRS:05/22/2024 Patient was last seen on: 05/22/2024 Diagnosis: Generalized anxiety disorder MDD recurrent mild Night terrors Plan: -Duloxetine: to increase to 90mg daily from 60mg -Trazodone 100mg daily at bedtime as needed, does not help much -Alprazolam 0.25mg TID PRN, takes it mostly 2 times a day -Will consider Prazosin for the night terrors in her next visit. INTERVAL HISTORY: Today patient reports that she is doing okay, feeling tired all the time, has left leg pain which affects her sleep. She has been having anxiety, feels worked up about the pain in her leg. She is under stress, so she is scared that she would have another panic attack. She has been having times when she felt like it coming on and so would work on breathing and using a cold towel to help her relax. She used to take the Xanax, but it did not help much and was told about the medication causing abuse. She does not notice much benefit from it anyways. She would like to know if there is a medication that could help her better than the Xanax. She prefers to take the medication as needed rather than taking it every day. She has been taking the duloxetine regularly. She tried taking the hydroxyzine 25mg for anxiety, but it did not help and so stopped taking it. We discussed about therapy and she was willing to try as long as it did not bring up the past memories or traumatic experiences. She has a dog for the last 2 years and it has been very helpful. Her dog is able to sense her stress and makes her feel comfortable. Sleep: has been taking the trazodone, it helped before, but not helping much now. Appetite: Medication side effects: Denies any PAST MEDICATION HISTORY: paxil - stopped before buspar - reported hallucinations wellbutrin - not helpful hydroxyzine propranolol duloxetine - currently taking alprazolam - currently taking SOCIAL HISTORY: College educated. Lives with and 2 daughters (23 and 20). Not working. SUBSTANCE USE HISTORY: tobacco: denies alcohol: denies marijuana: denies illicit substances: denies Review of systems: Negative except where noted above. PHYSICAL EXAM: Measurement DT TEMP PULSE RESP BP HT WT F(C) IN(CM) LB(KG)[BMI] ---- ----- ---- -- ------ 12/17/2024 18:41 97.9(36.6) 106 16 142/110 11/26/2024 12:35 97.9(36.6) 86 18 110/68 62.0(157) 182(82.6)[33*] Measurement DT CVP POx CG CMH20(MMHG) (L/MIN)(%) IN(CM) ------ 11/26/2024 12:35 98 11/14/2024 09:30 97 Measurement DT Pain ---- 12/17/2024 18:41 6 11/26/2024 12:35 5 Measurement DT WEIGHT LB(KG)[BMI] 11/26/2024 12:35 182.2(82.64)[33*] 11/14/2024 09:30 180(81.65)[33*] 11/08/2024 05:30 182.2(82.64)[33*] Resp: Normal Effort Extremities: unable to assess, moving upper extremitites Neuro: not observed MENTAL STATUS EXAM: Appearance: appropriately dressed, fairly groomed Behavior towards examiner: Cooperative Eye contact: Fair via video Speech: normal rate, rhythm, volume and fluency Psychomotor: no psychomotor agitation or retardation Mood: I am anxious about having a panic attack Affect: Appears mildly anxious Thought Process: logical, linear, goal-directed Thought Content: denies suicidal or homicidal thoughts, did not voice any delusions today Perception: denies any auditory or visual hallucinations, not observed to be reacting to internal stimuli Orientation: alert and oriented x 3 Attention/Concentration: able to hold a conversation Memory: can recall most of the information Fund of knowledge: average Insight: Fair Judgement: Fair LAB RESULTS: Complete Blood Count WBC 7.5 10*3/uL 12/17/2024 19:11 RBC 4.79 10*6/uL 12/17/2024 19:11 HGB 14.5 g/dL 12/17/2024 19:11 HCT 43.1 % 12/17/2024 19:11 MCV 90.0 fL 12/17/2024 19:11 MCH 30.3 pg 12/17/2024 19:11 MCHC 33.6 g/dL 12/17/2024 19:11 RDW 12.2 % 12/17/2024 19:11 PLT 312 10*3/uL 12/17/2024 19:11 MPV 10.5 fL 12/17/2024 19:11 NEUTROPHILS, AUTO % 48 % 12/17/2024 19:11 LYMPHOCYTES, AUTO % 42 % 12/17/2024 19:11 MONOCYTES, AUTO % 7 % 12/17/2024 19:11 EOSINOPHILS, AUTO % 2 % 12/17/2024 19:11 BASOPHILS, AUTO % 1 % 12/17/2024 19:11 NEUTROPHILS, ABSOLUTE 3.60 10*3/uL 12/17/2024 19:11 LYMPHOCYTES, ABSOLUTE 3.17 10*3/uL 12/17/2024 19:11 MONOCYTES, ABSOLUTE 0.49 10*3/uL 12/17/2024 19:11 EOSINOPHILS, ABSOLUTE 0.15 10*3/uL 12/17/2024 19:11 BASOPHILS, ABSOLUTE 0.08 10*3/uL 12/17/2024 19:11 Comprehensive Metabolic Panel SODIUM 138 mEq/L 12/17/2024 19:11 POTASSIUM 4.2 mEq/L 12/17/2024 19:11 CHLORIDE 104 mEq/L 12/17/2024 19:11 UREA NITROGEN 17.8 mg/dL 12/17/2024 19:11 CREATININE 0.89 mg/dL 12/17/2024 19:11 CALCIUM 9.7 mg/dL 12/17/2024 19:11 PROTEIN 7.5 g/dL 12/17/2024 19:11 ALBUMIN 4.2 g/dL 12/17/2024 19:11 ALKALINE PHOSPHATASE 85 U/L 12/17/2024 19:11 ALT/SGPT 24 U/L 12/17/2024 19:11 AST/SGOT 42 H U/L 12/17/2024 19:11 TOTAL BILIRUBIN 0.3 mg/dL 12/17/2024 19:11 CARBON DIOXIDE 23 mEq/L 12/17/2024 19:11 GLUCOSE 103 H mg/dL 12/17/2024 19:11 EGFR (CKD-EPI 2020) 79.9 12/17/2024 19:11 Lipid Panel No LIPID PANEL EO data found Other pertinent labs HgbA1c: HGA1C 5.7 % 06/07/2024 08:38 TSH: TSH 3.321 uIU/mL 11/07/2024 11:22 B12: B12 440 pg/mL 10/22/2024 12:04 MMA: Folate:FOLATE ([facility]) 8.8 ng/mL 2024 06:00 Vitamin D:VITAMIN D, 25-HYDROXY 39.3 ng/mL 2024 06:00 Ammonia: No data available for: AMMONIA ([facility]) CPK: 61 U/L (11/07/24 09:49) RPR: non reactive (02/13/23 13:35) HIV: No HIV Antibody ([facility]);HIV COMBO ([facility]) data found HCV: HEP C Ab HCV Ab ([facility]) Nonreactive S/CO 03/06/2023 15:31 Dilantin: ____ Tegretol: No CARBAMAZEPINE EO data found Valproate: No data available for: VALPROIC ACID ([facility]) Clozapine: WBC 7.5 10*3/uL 12/17/2024 19:11 RBC 4.79 10*6/uL 12/17/2024 19:11 HGB 14.5 g/dL 12/17/2024 19:11 HCT 43.1 % 12/17/2024 19:11 MCV 90.0 fL 12/17/2024 19:11 MCH 30.3 pg 12/17/2024 19:11 MCHC 33.6 g/dL 12/17/2024 19:11 RDW 12.2 % 12/17/2024 19:11 PLT 312 10*3/uL 12/17/2024 19:11 MPV 10.5 fL 12/17/2024 19:11 NEUTROPHILS, AUTO % 48 % 12/17/2024 19:11 LYMPHOCYTES, AUTO % 42 % 12/17/2024 19:11 MONOCYTES, AUTO % 7 % 12/17/2024 19:11 EOSINOPHILS, AUTO % 2 % 12/17/2024 19:11 BASOPHILS, AUTO % 1 % 12/17/2024 19:11 NEUTROPHILS, ABSOLUTE 3.60 10*3/uL 12/17/2024 19:11 LYMPHOCYTES, ABSOLUTE 3.17 10*3/uL 12/17/2024 19:11 MONOCYTES, ABSOLUTE 0.49 10*3/uL 12/17/2024 19:11 EOSINOPHILS, ABSOLUTE 0.15 10*3/uL 12/17/2024 19:11 BASOPHILS, ABSOLUTE 0.08 10*3/uL 12/17/2024 19:11 Lamotrigine: SLT - Lab Tests Selected No data available for: LAMOTRIGINE Urinalysis URINE COLOR Yellow 11/07/2024 12:35 APPEARANCE Turbid [...] 21:27 U.ACID CRYSTALS MOD /HPF 11/19/2023 19:20 Urine Drug Screen No data available EK12/18/2024 20:14 Local Title: EKG CONSULT ST[facility] Standard Title: CARDIOLOGY DIAGNOSTIC STUDY CONSULT AUTHOR: CLINICAL,DEVICE PROXY SERVICE DOCUMENT IN [facility] SEE FULL REPORT IN [facility] SIGNATURE NOT REQUIRED SEE SIGNATURE IN VISTA IMAGING ([place] [facility]) AUTO-INSTRUMENT DIAGNOSIS Procedure: 07730 12 Lead ECG Release Status: Released Off-Line Verified Date Verified: Dec 18, 2024@20:14:46 90450.2 Ventricular Rate: 104 BPM 54394.5 QRS Duration: 78 ms 72779.6 Q-T Interval: 362 ms 14743 QTC Calculation(Bazett)476 ms 80803.13 Calculated R Serena: -35 degrees 77072.14 Calculated T Serena: 25 degrees Sinus tachycardia Left axis deviation Anterolateral infarct (cited on or before 16-JUN-2020) Abnormal ECG When compared with ECG of 07-NOV-2024 15:34, Vent. rate has increased BY 39 BPM The axis Shifted left Questionable change in initial forces of Anterior-lateral leads T wave amplitude has increased in Lateral leads Administrative Closure: 12/18/2024 by: CLINICAL,DEVICE PROXY SERVICE < THE ABOVE NOTE IS UNSIGNED > - DRAFT COPY * DRAFT COPY * DRAFT COPY * DRAFT COPY * DRAFT COPY * DRAFT COPY - DIAGNOSIS: Generalized anxiety disorder MDD recurrent mild Insomnia unspecified ASSESSMENT/PLAN: Ms. Nunes is a 49 yr old female , , not employed, with a history of depression and anxiety with a recent panic attack leading to respiratory alkalosis was seen today as a follow up. She reports continuing to have anxiety about having a panic attack and would like to try a medication to help with these symptoms. We discussed about trying propranolol as needed as she did not find the alprazolam and hydroxyzine too helpful. -Propranolol 10 mg 3 times a day as needed for anxiety, recommended that she can try taking 1-3 pills at a time. Was informed of the side effects especially with dizziness or low blood pressure. -Duloxetine 90 mg daily -Trazodone: Increase to 150 mg from 100 mg daily at bedtime as needed -Currently not taking the alprazolam 0.25 mg -Consult placed for START group therapy, prefers virtual -Patient also requesting for a letter for emotional support animal. We discussed alternatives to treatment, including no treatment, as well as risks, benefits, side effects. The patient understood and consented to treatment provided. Patient aware to call clinic or Emergency Room as appropriate if symptoms get worse or if patient experiences side effects from medications. Time spent: 33 minutes Spent about 19 minutes in supportive therapy SAFETY RISK ASSESSMENT: Risk factors: hx of depression and anxiety, prior suicidal thoughts Protective factors: no prior attempts, no current suicidal thoughts, adherent with medications, connected to providers, support from others, responsibility for children, future oriented Acute Risk: low Chronic Risk: low [place] is currently stable for outpatient care. RTC: in 3 months as [facility] INSTRUCTIONS GIVEN TO PATIENT/FAMILY: * Report medication side effects promptly * No alcohol/illicit drug use with medication * Needs to be cautious with driving/use of machinery * Avoid night-time driving * Follow up with Primary Care Provider * If symptoms get worse, call clinic or Emergency Room as appropriate /tamera/ CONCEPCIÓN MARTELL Staff Psychiatrist[facility]IT[facility] Signed: 01/02/2025 14:11 JAMAAL MARTELL [facility]
--- OUTSIDE RECORDS SUMMARY | 2025-03-22 22:00 | XMS_ITS | Referral Summary ---
Author Organization [facility] Address [address] [place] [address] Care Team Providers Care Cut Off Worker Name Role Phone Luzmaria Ba MD Unavailable Uche Williamson MD Unavailable Asuncion Lyle MD Primary Care Provid er Encounters Date Type Department Care Team Description 03/19/2025 Telephone [facility] Minimally Invasive Surgery [address] [place] [address] Medical Office Building [address] [place] [address] Fay Padilla BYoshi. from Last [...] tabletIndications: hypothyroidism Take 150 mcg by mouth door furring installer before breakfast Active diphenhydrAMINE (BENADRYL) 25 mg [...] (01/11/2023): Added automatically from request for surgery [id number] Cataplexy 06/29/2022 Restless legs 06/29/2022 Psychophysiological insomnia [...] without status migrainosus, not intract able 10/06/2020 [place] eye disease 10/06/2020 Primary hypothyroidism 10/06/2020 Right ankle sprain 10/06/2020 Sprain of left foot 10/06/2020 Swelling of tonsil 10/06/2020 Systemic viral illness 10/06/2020 Adnexal cyst 06/20/2019 Overview (06/20/2019): Added automatically from request for surgery [id number] Urgency incontinence 03/09/2018 Bilateral myofascial pain 03/08/2018 [...] on file Legal Sex Female 5:21 AM HOME AGENT Gender Identity Not on file Sexual Orientation [...] ESOPHAGOGASTRODUODENOSCOPY [employer] Implanted Type Area Fleet Administrative Assistant Device Identifier Shelf Expiration Date Model / Serial / Lot [employer] Bariatric Peristrip Non Crosslinked Bovine Pericardium For Endo Marcelina Thin [id number] - Sn/A - [id number] Implanted:Qty: 1 on 06/08/2023 by Betr Rankin MD at [facility] Other - see comments N/A: Abdomen [employer] 11/02/2023 [id number] THN / N/A / [id number] Description:Hannah strip [employer] Bariatric Peristrip Non Crosslinked Bovine Pericardium For Endo Marcelina Thin [id number] - Sn/A - [id number] Implanted:Qty: 1 on 06/08/2023 by Bert Rankin MD at [facility] Other - see comments N/A: Abdomen [employer] 11/02/2023 [id number] THN / N/A / [id number] Description:Hannah strip Insurance [facility] Advance Directives For more information, please contact: [phone] * Full Code (Latest Code Status on [...] 4:09 AM 08/06/2021 7:43 PM Care Teams Cut Off Worker Relationship Specialty Start Date End Date sAuncion Lyle MD [address] [place] [address] PCP - General Family Practice 06/29/22 Luzmaria Ba MD Referring Physician Obstetrics and Gynecology 03/13/19 Uche Williamson MD [id number] [place] [address] Referring Physician Gynecologic Oncology 06/07/19 RAJESH MONK NP [facility] [address] [facility] [id number] Referring Physician Internal Medicine 05/30/19
--- OUTSIDE RECORDS SUMMARY | 2025-03-22 22:00 | XMS_ITS | Encounter Summary ---
Author Name [facility] [facility] [place] [facility] [place] Address [address] [place] [address] Care Team Providers Care Senior C Web Developer Name Role Phone VERNA BARRERA Primary Care [...] AID ([place]NR) Oct 23, 2016 MEDICAI D [id number] [phone] GERDA NUNES PATIENT Selected Encounter This section includes the information on record at [place] for the Encounter. Date/Time Encounter Type Encounter Description Reason Provider Source Jul 08, 2024 08:44 PM Outpatient Encounter EMERGENCY DEPT MARCELO FLORES Encounter Template Text not used by [place] Plan of Treatment: Future Appointments (+ 6 [...] 20 appointments. The [facility] comes from all [facility]. Appointment Date/Time Appointment Type Appointme nt Facility Name Jul 09, 2024 08:30 AM AMBULATORY - MEDICINE [facility] Jul 16, 2024 11:43 AM AMBULATORY - MEDICINE [facility] Jul 22, 2024 10:00 AM AMBULATORY - MEDICINE [facility] Oct 22, 2024 11:30 AM AMBULATORY - MEDICINE [facility] Nov 07, 2024 08:41 AM AMBULATORY - MEDICINE [facility] Nov 12, 2024 10:30 AM AMBULATORY - MEDICINE [facility] Nov 14, 2024 09:30 AM AMBULATORY - MEDICINE [facility] Nov 26, 2024 12:30 PM AMBULATORY - SURGERY [facility] Dec 17, 2024 06:28 PM AMBULATORY - MEDICINE [facility] Jan 02, 2025 01:00 PM AMBULATORY - PSYCHIATRY [facility] Active, Pending, and Scheduled Orders This section includes a listing of several types of active, pending, and scheduled orders, including clinic medications orders, diagnostic test orders, procedure orders and consult orders; where the start date of the order is 45 days before the date of the Encounter or 45 days after the date of theEncounter. The data comes from all [facility]. Test Date/Time Test Type Test Details Facility Name Jul 11, 2024 04:51 PM Laboratory - Chemi stry Order TSH W/ REFLEX FT4 (STL) GREEN LI-HEP PLASMA WC [facility] Jul 12, 2024 12:00 AM Laboratory - Chemi stry Order HAPTOGLOBIN (STL) GOLD/RED SST SERUM SP [facility] Jul 12, 2024 12:00 AM Laboratory - Chemi stry Order LDH GREEN LI/HEP BLD/PLAS PLASMA SP [facility] Jul 12, 2024 12:00 AM Laboratory - Chemi stry Order IRON/TIBC PROFILE GOLD/RED SST SERUM SP [facility] Jul 12, 2024 12:00 AM Laboratory - Chemi stry Order FERRITIN GOLD/RED SST SERUM [facility] Jul 12, 2024 12:00 AM Laboratory - Chemi stry Order RETIC RATIO BLOOD SP ONCE . [facility] Jul 12, 2024 12:00 AM Laboratory - Chemi stry Order B12 GOLD/RED SST SERUM SP . [facility] Jul 12, 2024 12:00 AM Laboratory - Chemi stry Order FOLATE (STL-MA) GOLD/RED SST SERUM SP . [facility] Jul 16, 2024 11:36 PM Laboratory - Chemi stry Order MRSA SURVL NARES DNA NARES WC [facility] Lab Results: +/- 30 days of the encounter This section includes the Chemistry and Hematology Lab Results on record with [place] for the patient. Radiology Reports and Pathology Reports are provided separately, in subsequent sections. Lab Results This section contains the Chemistry/Hematology Results that were resulted 30 days before or 30 daysafter the date of the Encounter. Date/Time Source Result Type Result - Unit Interpretation Reference Range Specimen Type Comment Jul 20, 2024 11:28 AM [facility] GLUCOSE,BLOOD-poct (STL) BLOOD Specimen Type: BLOOD Comment: Test Performed by: [id number] Meter #: [id number] Ordering Provider: KRYSTIAN KUMARI Report Released Date/Time: Jul 20, 2024 11:50 AM Reporting Lab: [facility] [address] [facility] [address] Performing Lab: [address] [address] GLUCOSE,BLOOD-poct (STL) 78 mg/dL 72-99 Jul 20, 2024 08:02 AM [facility] MAGNESIUM PLASMA Specimen Type: PLASM A Comment: No hemolysis noted. Ordering Provider: MICHAEL FELIZ Report Released Date/Time: Jul 17, 2024 03:01 PM Reporting Lab: [address] [address] Performing Lab: [place] [address] [facility] [address] MAGNESIUM 2.1 mg/dL 1.6-2.6 Jul 20, 2024 08:02 AM [facility] RENAL PANEL PLASMA Specimen Type: PLASM A Comment: No hemolysis noted. Ordering Provider: MICHAEL FELIZ Report Released Date/Time: Jul 17, 2024 03:01 PM Reporting Lab: [address] [address] Performing Lab: [address] [address] CREATININE 0.81 mg/dL 0.6-1.1 UREA NITROGEN 16.7 mg/dL 9.0-25.0 GLUCOSE 99 mg/dL 72-99 SODIUM 142 meq/L 136-145 POTASSIUM 4.2 meq/L 3.5-5 CHLORIDE 108 meq/L H 98-107 CARBON DIOXIDE 25 meq/L 22-31 CALCIUM 9.6 mg/dL 8.4-10.4 PHOSPHOROUS 3.9 mg/dL 2.3-4.7 ALBUMIN 3.7 g/dL 3.4-5 EGFR (CKD-EPI 2020) 89.5 >60 Jul 19, 2024 04:23 PM [facility] GLUCOSE,BLOOD-poct (STL) BLOOD Specimen Type: BLOOD Comment: Test Performed by: [id number] Meter #: [id number] Ordering Provider: KRYSTIAN KUMARI Report Released Date/Time: Jul 19, 2024 04:54 PM Reporting Lab: [address] [address] Performing Lab: [address] [address] GLUCOSE,BLOOD-poct (STL) 74 mg/dL 72-99 Jul 19, 2024 11:32 AM [facility] GLUCOSE,BLOOD-poct (STL) BLOOD Specimen Type: BLOOD Comment: Test Performed by: [id number] Meter #: [id number] Ordering Provider: KRYSTIAN KUMARI Report Released Date/Time: Jul 19, 2024 11:55 AM Reporting Lab: [address] [address] Performing Lab: [address] [address] GLUCOSE,BLOOD-poct (STL) 78 mg/dL 72-99 Jul 19, 2024 06:59 AM [facility] MAGNESIUM PLASMA Specimen Type: PLASM A Comment: No hemolysis noted. Ordering Provider: MICHAEL FELIZ Report Released Date/Time: Jul 17, 2024 03:01 PM Reporting Lab: [facility] [address] [place] [address] Performing Lab: [facility] [address] [place] [phone] MAGNESIUM 2.1 mg/dL 1.6-2.6 Jul 19, 2024 06:59 AM [facility] RENAL PANEL PLASMA Specimen Type: PLASM A Comment: No hemolysis noted. Ordering Provider: MICHAEL FELIZ Report Released Date/Time: Jul 17, 2024 03:01 PM Reporting Lab: [address] [address] Performing Lab: [address] [address] CREATININE 0.88 mg/dL 0.6-1.1 UREA NITROGEN 19.2 mg/dL 9.0-25.0 GLUCOSE 52 mg/dL L 72-99 SODIUM 143 meq/L 136-145 POTASSIUM 3.5 meq/L 3.5-5 CHLORIDE 108 meq/L H 98-107 CARBON DIOXIDE 26 meq/L 22-31 CALCIUM 10.0 mg/dL 8.4-10.4 PHOSPHOROUS 3.8 mg/dL 2.3-4.7 ALBUMIN 4.1 g/dL 3.4-5 EGFR (CKD-EPI 2020) 81.0 >60 Jul 19, 2024 06:59 AM [facility] CBC BLOOD Specimen Type: BLOOD No comment entered. Ordering Provider: MICHAEL FELIZ Report Released Date/Time: Jul 17, 2024 03:01 PM Reporting Lab: [address] [address] Performing Lab: [address] [address] WBC 4.6 10*3/uL 3.6-11.2 RBC 4.82 10*6/uL [...] 0.05 10*3/uL 0.00-0. 20 2024 06:35 AM [facility] MAGNESIUM PLASMA Specimen Type: PLASM A Comment: No hemolysis noted. Ordering Provider: MICHAEL FELIZ Report Released Date/Time: Jul 17, 2024 03:01 PM Reporting Lab: [address] [address] Performing Lab: [address] [address] MAGNESIUM 2.2 mg/dL 1.6-2.6 2024 06:35 AM [facility] FERRITIN SERUM Specimen Type: SERUM No comment entered. Ordering Provider: MICHAEL FELIZ Report Released Date/Time: Jul 17, 2024 03:01 PM Reporting Lab: [address] [address] Performing Lab: [address] [address] FERRITIN 11.54 ng/mL 10-2024 06:35 AM [facility] B12 SERUM Specimen Type: SERUM No comment entered. Ordering Provider: MICHAEL FELIZ Report Released Date/Time: Jul 17, 2024 03:01 PM Reporting Lab: [facility] [address] [address] Performing Lab: [address] [address] B12 194 pg/mL L 213-816 2024 06:35 AM [facility] IRON/TIBC PROFILE SERUM Specimen Type: SERUM No comment entered. Ordering Provider: MICHAEL FELIZ Report Released Date/Time: Jul 17, 2024 03:01 PM Reporting Lab: [address] [address] Performing Lab: [address] [address] TIBC 420 ug/dL 250-450 TRANSFERRIN 336 mg/dL 173-360 IRON SATURATION 11 L 20-50 IRON 45 ug/dL L 50-170 2024 06:35 AM [facility] FOLATE ([facility]) SERUM Specimen Type: SERUM No comment entered. Ordering Provider: MICHAEL FELIZ Report Released Date/Time: Jul 17, 2024 03:01 PM Reporting Lab: [address] [address] Performing Lab: [address] [address] FOLATE ([facility]) 8.8 ng/mL 7-20 2024 06:35 AM [facility] VITAMIN D, 25-HYDROXY SERUM Specimen Type: SE RUM No comment entered. Ordering Provider: MICHAEL FELIZ Report Released Date/Time: Jul 17, 2024 03:49 PM Reporting Lab: [address] [address] Performing Lab: [address] [address] VITAMIN D, 25-HYDROXY 39.3 ng/mL 30-96 2024 06:35 AM [facility] CBC BLOOD Specimen Type: BLOOD No comment entered. Ordering Provider: MICHAEL FELIZ Report Released Date/Time: Jul 17, 2024 03:01 PM Reporting Lab: [facility] [address] [place] [phone] Performing Lab: [address] [address] WBC 5.6 10*3/uL 3.6-11.2 RBC 4.41 10*6/uL [...] 0.05 10*3/uL 0.00-0. 20 2024 06:35 AM [facility] RENAL PANEL PLASMA Specimen Type: PLASM A Comment: No hemolysis noted. Ordering Provider: MICHAEL FELIZ Report Released Date/Time: Jul 17, 2024 03:01 PM Reporting Lab: [address] [address] Performing Lab: [address] [address] CREATININE 0.85 mg/dL 0.6-1.1 UREA NITROGEN 20.0 mg/dL 9.0-25.0 GLUCOSE 91 mg/dL 72-99 SODIUM 142 meq/L 136-145 POTASSIUM 4.2 meq/L 3.5-5 CHLORIDE 108 meq/L H 98-107 CARBON DIOXIDE 26 meq/L 22-31 CALCIUM 9.6 mg/dL 8.4-10.4 PHOSPHOROUS 4.9 mg/dL H 2.3-4.7 ALBUMIN 3.9 g/dL 3.4-5 EGFR (CKD-EPI 2020) 84.5 >60 Jul 17, 2024 08:37 PM [facility] VITAMIN B1 PLASMA Specimen Type: PLASM A Comment: Vitamin supplementation within 24 hours prior to blood draw may affect the accuracy of the results. This test was developed and its analytical performance characteristics have been determined by [facility] [place]. It has not been cleared or approved by the U.S. Food and Drug Administration. This assay has been validated pursuant to the CLIA regulations and is used for clinical purposes. Test Performed by [facility], [facility], [address] [place] [address] Remi Dos Santos M.D., Ph.D., Director of Laboratories , CLIA [id number] Ordering Provider: MICHAEL FELIZ Report Released Date/Time: Jul 17, 2024 04:40 PM Reporting Lab: [address] [address] Performing Lab: [facility] [address] [facility] VITAMIN B1 13 nmol/L 8-30 Jul 17, 2024 06:48 AM [facility] TSH (MA-PB) SERUM Specimen Type: SERUM No comment entered. Ordering Provider: REMINGTON COTA Report Released Date/Time: Jul 17, 2024 03:52 AM Reporting Lab: [address] [address] Performing Lab: [address] [address] TSH 3.837 u[IU]/mL 0.47-5 Jul 17, 2024 06:48 AM [facility] BASIC METABOLIC PANEL PLASMA Specimen Type: PL ASMA Comment: No hemolysis noted. Ordering Provider: REMINGTON COTA Report Released Date/Time: Jul 16, 2024 11:36 PM Reporting Lab: [facility] [address] [place] [phone] Performing Lab: [address] [address] CREATININE 0.89 mg/dL 0.6-1.1 UREA NITROGEN 14.1 mg/dL 9.0-25.0 GLUCOSE 86 mg/dL 72-99 SODIUM 144 meq/L 136-145 POTASSIUM 3.5 meq/L 3.5-5 CHLORIDE 109 meq/L H 98-107 CARBON DIOXIDE 24 meq/L 22-31 CALCIUM 9.7 mg/dL 8.4-10.4 EGFR (CKD-EPI 2020) 80.4 >60 Jul 17, 2024 06:48 AM [facility] CBC BLOOD Specimen Type: BLOOD No comment entered. Ordering Provider: REMINGTON COTA Report Released Date/Time: Jul 16, 2024 11:36 PM Reporting Lab: [facility] [address] [place] [phone] Performing Lab: [address] [address] WBC 6.0 10*3/uL 3.6-11.2 RBC 4.55 10*6/uL [...] 0.00-0. 20 Jul 16, 2024 11:44 PM [facility] MRSA SURVL NARES DNA NARES [...] Jul 16, 2024 11:36 PM Reporting Lab: [place] [address] Performing Lab: [place] [address] MRSA SURVL NARES DNA Negative Negative Jul 16, 2024 04:15 PM [facility] TEST URINE (MA-STL) URINE Specimen Type: URINE No comment entered. Ordering Provider: ROBERTA RIVAS Report Released Date/Time: Jul 16, 2024 01:23 PM Reporting Lab: [address] [address] Performing Lab: [address] [address] Qualitative Test NEG NEGAT MISAEL Jul 16, 2024 04:15 PM [facility] URINALYSIS W/ CX REFLEX (STL-PB) URINE Specim en Type: URINE No comment entered. Ordering Provider: ROBERTA RIVAS Report Released Date/Time: Jul 16, 2024 01:23 PM Reporting Lab: [address] [address] Performing Lab: [address] [address] URINE COLOR Yellow Yellow U.BILIRUBIN Negative mg/dL [...] 1.026 1.005-1.029 Jul 16, 2024 02:30 PM [facility] CPK PLASMA Specimen Type: PLASM A Comment: No hemolysis noted. Ordering Provider: ROBERTA RIVAS Report Released Date/Time: Jul 16, 2024 01:23 PM Reporting Lab: [facility] [address] [facility] [address] Performing Lab: [facility] [address] [facility] [address] CPK 92 U/L 29-168 Jul 16, 2024 02:30 PM [facility] PHOSPHOROUS PLASMA Specimen Type: PLASM A Comment: No hemolysis noted. Ordering Provider: ROBERTA RIVAS Report Released Date/Time: Jul 16, 2024 01:23 PM Reporting Lab: [facility] [address] [facility] [address] Performing Lab: [facility] [address] [facility] [address] PHOSPHOROUS 3.4 mg/dL 2.3-4.7 Jul 16, 2024 02:30 PM [facility] MAGNESIUM PLASMA Specimen Type: PLASM A Comment: No hemolysis noted. Ordering Provider: ROBERTA RIVAS Report Released Date/Time: Jul 16, 2024 01:23 PM Reporting Lab: [facility] [address] [facility] [address] Performing Lab: [facility] [address] [place] [address] MAGNESIUM 2.0 mg/dL 1.6-2.6 Jul 16, 2024 02:30 PM [facility] COMPREHENSIVE METABOLIC PANEL PLASMA Specimen Type: PLASMA Comment: No hemolysis noted. Ordering Provider: ROBERTA RIVAS Report Released Date/Time: Jul 16, 2024 01:23 PM Reporting Lab: [address] [address] Performing Lab: [address] [address] CREATININE 0.86 mg/dL 0.6-1.1 UREA NITROGEN 15.1 [...] 83.8 >60 Jul 16, 2024 02:30 PM [facility] CBC BLOOD Specimen Type: BLOOD No comment entered. Ordering Provider: ROBERTA RIVAS Report Released Date/Time: Jul 16, 2024 01:23 PM Reporting Lab: [address] [address] Performing Lab: [address] [address] WBC 6.3 10*3/uL 3.6-11.2 RBC 4.76 10*6/uL [...] Height Weight Body Mass Index Source Jul 08, 2024 08:56 PM 99.1 97 151/91 16 8 [facility] Social History: Smoking Status (Most current) and Tobacco Use (All prior to encounter date) This section includes the most current, and the historical, smoking and tobacco- related health factors from the [place] facility where the Encounter took place. Current Smoking Status This section includes the most current smoking, or tobacco-related health factor, from the [place] facility where the Encounter took place. Date/Time Current Smoking Status Comment Jessica sidhu Nov 09, 2023 06:45 AM [facility] ADMIT TOBACCO SCREEN NO [facility] Tobacco Use History This section includes a history of the smoking, or tobacco-related health factors, that were collected on or before the date of the Encounter. The data comes from the [place] facility where the Encounter took place. Date/Time Smoking Status/Tobacco Use Comment F acjamie May 25, 2022 11:42 AM [facility] ADMIT TOBACCO SCREEN NO [facility] May 13, 2022 08:14 PM [facility] ADMIT TOBACCO SCREEN NO [facility] Apr 07, 2022 03:34 AM [facility] ADMIT TOBACCO SCREEN REFUSED [facility] Dec 20, 2021 12:44 PM [facility]YX ADMIT TOBACCO SCREEN NO [facility] Aug 23, 2021 08:22 PM [facility]YX ADMIT TOBACCO SCREEN NO [facility] Aug 12, 2021 06:24 PM [facility] ADMIT TOBACCO SCREEN NO [facility] May 12, 2008 06:16 PM LIFETIME NON-USER OF TOBACCO [facility] Jun 28, 2007 01:18 PM LIFETIME NON-USER OF TOBACCO [facility] May 03, 2006 10:56 AM LIFETIME NON-TOBACCO USER [facility] Dec 03, 2003 08:16 AM LIFETIME NON-TOBACCO USER [facility] Radiology Reports: +/- 30 days [...] & FIBULA,LEF T, 2 VIEWS: GERDA NUNES [facility] [id number] -1975 F Exm Date: JUL 16, 2024@14:59 Req Phys: ROBERTA RIVAS Pat Loc: -EMERGENCY DEPT 2ND SHIFT (R Img Loc: -MAIN RADIOLOGY SUITE Service: Unknown Screen: Patient answered no [facility] [address] [place] [address] (Case [id number] COMPLETE) TIBIA & FIBULA,LEFT, 2 VIEWS (RAD Detailed) CPT:85489 Proc Modifiers : LEFT Reason for Study: left calf pain, rule out foregin body Clinical History: Report Status: Verified Date Reported: JUL 16, 2024 Date Verified: JUL 16, 2024 Staff Development Nurse E-Sig:/ES/INDIO HOROWITZ Report: EXAMINATION: TIBIA & FIBULA,LEFT, 2 VIEWS [...] radiopaque foreign bodies. Primary Interpreting Staff: INDIO HOROWITZ Diagnostic Radiologist (Staff Development Nurse) /INDIO BRANDT [facility] Jul 16, 2024 02:47 PM US EXTREMITY VEINS UNILAT OR LTD: GERDA UNNES [facility] [id number] -1975 F Exm Date: JUL 16, 2024@14:47 Req Phys: ROBERTA RIVAS Loc: -EMERGENCY DEPT 2ND SHIFT (R Img Loc: -ULTRASOUND Service: Unknown Screen: Patient answered no [facility] [address] [place] [address] (Case [id number] COMPLETE) US EXTREMITY VEINS UNILAT OR LTD (US Detailed) CPT:57648 Reason for Study: left leg pain Clinical History: Report Status: Verified Date Reported: JUL 16, 2024 Date Verified: JUL 16, 2024 Staff Development Nurse E-Sig:/ES/INDIO HOROWITZ Report: Case [id number] US EXTREMITY VEINS UNILAT OR LTD Comparison: Left lower extremity ultrasound 11/09/2023. Findings: The left lower extremity deep veins are compressible throughout their course. No thrombi are visualized. Venous flow velocities demonstrate normal variation with respiration and augmentation. Impression: No evidence of deep venous thrombosis of the left lower extremity deep veins. Dictated by Kanika Lucero M.D. (transporter radiology). IIndio, have reviewed the images and report and concur with these findings. Primary Interpreting Staff: INDIO HOROWITZ Diagnostic Radiologist (Staff Development Nurse) Primary Interpreting Resident: KANIKA LUCERO, Diagnostic Cranberry Sorter /INDIO ABARCA Fortino [facility] Jun 27, 2024 06:00 AM MRI SPINE THORACIC W/O CONT: GERDA NUNSE DEC [id number] -1975 F Exm Date: JUN 27, 2024@06:00 Req Phys: VERNA BARRERA Pat Loc: [facility] PACT 6 PCP (Marcia'ritika Lehmang Loc: OUTSIDE BIN-MRI Service: Unknown Screen: Patient answered no (Case [id number] COMPLETE) MRI SPINE THORACIC W/O CONT (MRI Detailed) CPT:77803 Reason for Study: OUTSIDE STUDY Clinical History: Report Status: Electronically Filed Date Reported: JUL 08, 2024 Report: This study was performed outside the [place] in another facility and images were uploaded into [employer]. The report has been scanned into [employer]. In order to upload images a case number was needed, therefore this is an administrative report. Impression: This study was performed outside the [place] in another facility and images were uploaded into [employer]. The report has been scanned into [employer]. In order to upload images a case number was needed, therefore this is an administrative report VERIFIED BY: / *ELECTRONICALLY FILED* [facility] Encounter Notes: All associated encounter notes This section contains the clinical notes associated to the Encounter. Date/Time Encounter Note(s) Provider Source Jul 08, 2024 08:52 PM EMERGENCY DEPT TRIAGE NOTE: LOCAL TITLE: EMERGENCY DEPARTMENT TRIAGE NOTE STANDARD TITLE: EMERGENCY DEPT TRIAGE NOTE DATE OF NOTE: JUL 08, 2024@20:52 ENTRY DATE: JUL 08, 2024@20:52:56 AUTHOR: MARCELO FLORES COSIGNER: URGENCY: STATUS: COMPLETED Emergency Department/Urgent Care Center Triage Patient age:48 Sex: FEMALE On arrival patient was: AMBULATORY Patient phone number: Allergies: VITAMIN B12 1000MCG, PANTOPRAZOLE, AMOXICILLIN, FLONASE NASAL SOLUTION PREGABALIN, GABAPENTIN, METHOCARBAMOL Subjective/Chief Complaint: mult complaints. Objective: Pt c/o L leg pain, intermittent hearing loss, dizzy, DON, poor appetite, intermittent sweating. She reports her symptoms started this past and have continued to worsen. The patient is not a fall risk. BP: P: R: WT: T: HT: Temperature 99.1 F (37.3 C) Pulse 97 Respirations 16 Blood Pressure 151/91 Pain scale recorded: 8 Pulse Oximetry 98 Room Air Last normal menstrual period (LNMP): Post hysterectomy Sepsis Screening Evaluation Emergency Severity Index (OUMAR) level Level 3 Current Medications: Active Outpatient Medications (including Supplies): [...] DAILY UNTIL GONE. TAKE WITH FOOD. 9) PRAMIPEXOLE DIHYDROCHLORIDE 1.5MG TAB TAKE ONE TABLET ACTIVE BY MOUTH TWICE A DAY FOR RESTLESS LEG SYNDROME 10) SYRINGE 3ML/NDL 23G 1.5IN USE 1 SYRINGE ACTIVE INTRAMUSCULARLY EVERY MONTH FOR CYANOCOBALAMIN ADMINISTRATION 11) TIZANIDINE HCL 4MG TAB TAKE ONE TABLET BY MOUTH THREE ACTIVE TIMES A DAY NEEDED FOR SPASTICITY 12) TRAZODONE HCL 100MG TAB TAKE ONE TABLET BY MOUTH AT ACTIVE BEDTIME NEEDED FOR INSOMNIA Current Problems: 1) Family history of ischemic heart disease (SNOMED CT 413579934) 2) Migraine (SNOMED CT 00356398) 3) Vitamin D deficiency 4) Hypothyroidism 5) Low back pain 6) Depression 7) Mastodynia 8) Lumbar radiculopathy 9) Irritable bowel syndrome characterized by alternating bowel habit 10) Fibromyalgia 11) Chronic pain in female pelvis 12) Kidney stone 13) Insomnia 14) Compartment syndrome 15) Obesity (SCT [id number]) 16) Arthritis 17) Intermittent palpitations 18) Chronic obstructive lung disease 19) Obstructive sleep apnea of adult 20) Poor pelvic muscle tone 21) Cervicalgia 22) Bacterial cellulitis 23) Overactive bladder Suicide Screen: [place] Suicide Severity Rating Scale (C-SSRS) screener 1. [...] due to responses to other questions. /tamera/ TREVON SINGHN, RN REGISTERED NURSE Signed: 07/08/2024 20:56 MARCELO FLORES [facility]
--- OUTSIDE RECORDS SUMMARY | 2025-03-22 22:00 | XMS_ITS ---
[facility] H[facility] Encounter Summary Created on: March 22, 2025 GIOVANNI NUNES : 1975 Sex: Female Author Name [facility] [place] [facility] [place] Address [address] [place] [address] Care Team Providers Care Cook Chief Name Role Phone VERNA BARRERA Primary Care [...] AID (WNR) Oct 23, 2016 MEDICAI D [id number] REBECA NUNES PATIENT Selected Encounter This section includes the information on record at [place] for the Encounter. Date/Time Encounter Type Encounter Description Reason Pro vider Source Jul 16, 2024 11:33 PM Inpatient Visit HOSPITALIZATION ICD-10-CM E03.9 Hypothyroidism, unspecified TWOB,MED IHE Encounter Template Text not used by [place] Assessments - Encounter Diagnoses This section includes the primary and secondary diagnoses documented for the Encounter. Date/Time Primary/Secondary Diagnosis Diagnosis Name Provider Source Jul 20, 2024 01:43 PM Diagnosis for Length of Stay Sciatica, left side [facility] Jul 20, 2024 01:43 PM SECONDARY Bariatric surgery status [facility] Jul 20, 2024 01:43 PM SECONDARY Body mass index [BMI] 35.0-35.9, adult [facility] Jul 20, 2024 01:43 PM SECONDARY Cellulitis of left lower limb [facility] Jul 20, 2024 01:43 PM SECONDARY Chronic pain syndrome [facility] Jul 20, 2024 01:43 PM SECONDARY Constipation, unspecified [facility] Jul 20, 2024 01:43 PM SECONDARY Deficiency of other specified B group vitamins [facility] Jul 20, 2024 01:43 PM SECONDARY Fibromyalgia [facility] Jul 20, 2024 01:43 PM SECONDARY Hypothyroidism, unspecified [facility] Jul 20, 2024 01:43 PM SECONDARY Insomnia, unspecified [facility] Jul 20, 2024 01:43 PM SECONDARY Migraine, unsp, not intractable, without status migrainosus [facility] Jul 20, 2024 01:43 PM SECONDARY Obesity, unspecified [facility] Jul 20, 2024 01:43 PM SECONDARY Other intervertebral disc degeneration, lumbar region [facility] Jul 20, 2024 01:43 PM SECONDARY Pain in left hip [facility] Jul 20, 2024 01:43 PM SECONDARY Panic disorder [episodic paroxysmal anxiety] [facility] Jul 20, 2024 01:43 PM SECONDARY Post-traumatic stress disorder, unspecified [facility] Jul 20, 2024 01:43 PM SECONDARY Restless legs syndrome [facility] Plan of Treatment: Future Appointments (+ 6 months) and Future Tests (+/- 45 days) The Plan of Treatment section includes future care activities for the patient [facility]. This section includes future appointments and future orders which are active, pending or scheduled. Future Appointments This section includes appointments that were scheduled to occur 6 months from the date of the Encounter, up to a maximum of 20 appointments. The data comes from all [facility]. Appointment Date/Time Appointment Type Appointme nt Facility Name Jul 22, 2024 10:00 AM AMBULATORY - MEDICINE [facility] Oct 22, 2024 11:30 AM AMBULATORY - MEDICINE [facility] Nov 07, 2024 08:41 AM AMBULATORY - MEDICINE [facility] Nov 12, 2024 10:30 AM AMBULATORY - MEDICINE [facility] Nov 14, 2024 09:30 AM AMBULATORY - MEDICINE [facility] Nov 26, 2024 12:30 PM AMBULATORY - SURGERY . [facility] Dec 17, 2024 06:28 PM AMBULATORY - MEDICINE [facility] Jan 02, 2025 01:00 PM AMBULATORY - PSYCHIATRY [facility] Jan 07, 2025 11:30 AM AMBULATORY - MEDICINE [facility] Active, Pending, and Scheduled Orders This section includes a listing of several types of active, pending, and scheduled orders, including clinic medications orders, diagnostic test orders, procedure orders and consult orders; where the start date of the order is 45 days before the date of the Encounter or 45 days after the date of theEncounter. The data comes from all [facility] facilities. Test Date/Time Test Type Test Details Facility Name Jul 11, 2024 04:51 PM Laboratory - Chemi stry Order TSH W/ REFLEX FT4 (STL) GREEN LI-HEP PLASMA [facility] Jul 12, 2024 12:00 AM Laboratory - Chemi stry Order HAPTOGLOBIN (STL) GOLD/RED SST SERUM SP [facility] Jul 12, 2024 12:00 AM Laboratory - Chemi stry Order LDH GREEN LI/HEP BLD/PLAS PLASMA SP [facility] Jul 12, 2024 12:00 AM Laboratory - Chemi stry Order FERRITIN GOLD/RED SST SERUM SP [facility] Jul 12, 2024 12:00 AM Laboratory - Chemi stry Order IRON/TIBC PROFILE GOLD/RED SST SERUM SP [facility] Jul 12, 2024 12:00 AM Laboratory - Chemi stry Order B12 GOLD/RED SST SERUM SP [facility] Jul 12, 2024 12:00 AM Laboratory - Chemi stry Order FOLATE (STL-MA) GOLD/RED SST SERUM SP [facility] Jul 12, 2024 12:00 AM Laboratory - Chemi stry Order RETIC RATIO BLOOD SP ONCE STFortino [facility] Jul 16, 2024 11:36 PM Laboratory - Chemi stry Order MRSA SURVL NARES DNA NARES WC [facility] Lab Results: +/- 30 days of the encounter This section includes the Chemistry and Hematology Lab Results on record with [place] for the patient. Radiology Reports and Pathology Reports are provided separately, in subsequent sections. Lab Results This section contains the Chemistry/Hematology Results that were resulted 30 days before or 30 daysafter the date of the Encounter. Date/Time Source Result Type Result - Unit Interpretation Reference Range Specimen Type Comment Jul 20, 2024 11:28 AM [facility] GLUCOSE,BLOOD-poct (STL) BLOOD Specimen Type: BLOOD Comment: Test Performed by: [id number] Meter #: [id number] Ordering Provider: KRYSTIAN KUMARI Report Released Date/Time: Jul 20, 2024 11:50 AM Reporting Lab: [facility] [address] [facility] [address] Performing Lab: [facility] [address] [facility] [address] GLUCOSE,BLOOD-poct (STL) 78 mg/dL 72-99 Jul 20, 2024 08:02 AM [facility] MAGNESIUM PLASMA Specimen Type: PLASM A Comment: No hemolysis noted. Ordering Provider: MINERVA POWELL Report Released Date/Time: Jul 17, 2024 03:01 PM Reporting Lab: [facility] [address] [facility] [address] Performing Lab: [facility] [address] [facility] [address] MAGNESIUM 2.1 mg/dL 1.6-2.6 Jul 20, 2024 08:02 AM [facility] RENAL PANEL PLASMA Specimen Type: PLASM A Comment: No hemolysis noted. Ordering Provider: MINERVA POWELL Report Released Date/Time: Jul 17, 2024 03:01 PM Reporting Lab: [place] [address] [facility] [address] Performing Lab: [place] [address] [facility] [address] CREATININE 0.81 mg/dL 0.6-1.1 UREA NITROGEN 16.7 mg/dL 9.0-25.0 GLUCOSE 99 mg/dL 72-99 SODIUM 142 meq/L 136-145 POTASSIUM 4.2 meq/L 3.5-5 CHLORIDE 108 meq/L H 98-107 CARBON DIOXIDE 25 meq/L 22-31 CALCIUM 9.6 mg/dL 8.4-10.4 PHOSPHOROUS 3.9 mg/dL 2.3-4.7 ALBUMIN 3.7 g/dL 3.4-5 EGFR (CKD-EPI 2020) 89.5 >60 Jul 19, 2024 04:23 PM [facility] GLUCOSE,BLOOD-poct (STL) BLOOD Specimen Type: BLOOD Comment: Test Performed by: [id number] Meter #: [id number] Ordering Provider: KRYSTIAN KUMARI Report Released Date/Time: Jul 19, 2024 04:54 PM Reporting Lab: [address] [address] Performing Lab: [address] [address] GLUCOSE,BLOOD-poct (STL) 74 mg/dL 72-99 Jul 19, 2024 11:32 AM [facility] GLUCOSE,BLOOD-poct (STL) BLOOD Specimen Type: BLOOD Comment: Test Performed by: [id number] Meter #: [id number] Ordering Provider: KRYSTIAN KUMARI Report Released Date/Time: Jul 19, 2024 11:55 AM Reporting Lab: [address] [address] Performing Lab: [address] [address] GLUCOSE,BLOOD-poct (STL) 78 mg/dL 72-99 Jul 19, 2024 06:59 AM [facility] MAGNESIUM PLASMA Specimen Type: PLASM A Comment: No hemolysis noted. Ordering Provider: MINERVA POWELL Report Released Date/Time: Jul 17, 2024 03:01 PM Reporting Lab: [facility] [address] [facility] [address] Performing Lab: [facility] [address] [place] [address] MAGNESIUM 2.1 mg/dL 1.6-2.6 Jul 19, 2024 06:59 AM [facility] RENAL PANEL PLASMA Specimen Type: PLASM A Comment: No hemolysis noted. Ordering Provider: MINERVA POWELL Report Released Date/Time: Jul 17, 2024 03:01 PM Reporting Lab: [facility] [address] [facility] [address] Performing Lab: [address] [address] CREATININE 0.88 mg/dL 0.6-1.1 UREA NITROGEN 19.2 mg/dL 9.0-25.0 GLUCOSE 52 mg/dL L 72-99 SODIUM 143 meq/L 136-145 POTASSIUM 3.5 meq/L 3.5-5 CHLORIDE 108 meq/L H 98-107 CARBON DIOXIDE 26 meq/L 22-31 CALCIUM 10.0 mg/dL 8.4-10.4 PHOSPHOROUS 3.8 mg/dL 2.3-4.7 ALBUMIN 4.1 g/dL 3.4-5 EGFR (CKD-EPI 2020) 81.0 >60 Jul 19, 2024 06:59 AM [facility] CBC BLOOD Specimen Type: BLOOD No comment entered. Ordering Provider: MINERVA POWELL Report Released Date/Time: Jul 17, 2024 03:01 PM Reporting Lab: [facility] [address] [facility] [address] Performing Lab: [address] [address] WBC 4.6 10*3/uL 3.6-11.2 RBC 4.82 10*6/uL [...] 0.05 10*3/uL 0.00-0. 20 2024 06:35 AM [facility] MAGNESIUM PLASMA Specimen Type: PLASM A Comment: No hemolysis noted. Ordering Provider: MINERVA POWELL Report Released Date/Time: Jul 17, 2024 03:01 PM Reporting Lab: [address] [address] Performing Lab: [address] [address] MAGNESIUM 2.2 mg/dL 1.6-2.6 2024 06:35 AM [facility] FERRITIN SERUM Specimen Type: SERUM No comment entered. Ordering Provider: MINERVA POWELL Report Released Date/Time: Jul 17, 2024 03:01 PM Reporting Lab: [address] [address] Performing Lab: [facility] [address] [place] [address] FERRITIN 11.54 ng/mL 2024 06:35 AM [facility] B12 SERUM Specimen Type: SERUM No comment entered. Ordering Provider: MINERVA POWELL Report Released Date/Time: Jul 17, 2024 03:01 PM Reporting Lab: [address] [address] Performing Lab: [address] [place] [address] B12 194 pg/mL L 213-816 2024 06:35 AM [facility] IRON/TIBC PROFILE SERUM Specimen Type: SERUM No comment entered. Ordering Provider: MINERVA POWELL Report Released Date/Time: Jul 17, 2024 03:01 PM Reporting Lab: [place] [address] [facility] [address] Performing Lab: [facility] [address] [facility] [address] TIBC 420 ug/dL 250-450 TRANSFERRIN 336 mg/dL 173-360 IRON SATURATION 11 L 20-50 IRON 45 ug/dL L 50-170 2024 06:35 AM [facility] FOLATE (L-LA) SERUM Specimen Type: SERUM No comment entered. Ordering Provider: MINERVA POWELL Report Released Date/Time: Jul 17, 2024 03:01 PM Reporting Lab: [place] [address] [facility] [address] Performing Lab: [place] [address] [facility] [address] FOLATE ([facility]) 8.8 ng/mL 7-20 2024 06:35 AM [facility] VITAMIN D, 25-HYDROXY SERUM Specimen Type: SE RUM No comment entered. Ordering Provider: MINERVA POWELL Report Released Date/Time: Jul 17, 2024 03:49 PM Reporting Lab: [facility] [address] [facility] [address] Performing Lab: [place] [address] [facility] [address] VITAMIN D, 25-HYDROXY 39.3 ng/mL 30-96 2024 06:35 AM [facility] CBC BLOOD Specimen Type: BLOOD No comment entered. Ordering Provider: MINERVA POWELL Report Released Date/Time: Jul 17, 2024 03:01 PM Reporting Lab: [facility] [address] [facility] [address] Performing Lab: [address] [address] WBC 5.6 10*3/uL 3.6-11.2 RBC 4.41 10*6/uL [...] 0.05 10*3/uL 0.00-0. 20 2024 06:35 AM [facility] RENAL PANEL PLASMA Specimen Type: PLASM A Comment: No hemolysis noted. Ordering Provider: MINERVA POWELL Report Released Date/Time: Jul 17, 2024 03:01 PM Reporting Lab: [address] [address] Performing Lab: [address] [address] CREATININE 0.85 mg/dL 0.6-1.1 UREA NITROGEN 20.0 mg/dL 9.0-25.0 GLUCOSE 91 mg/dL 72-99 SODIUM 142 meq/L 136-145 POTASSIUM 4.2 meq/L 3.5-5 CHLORIDE 108 meq/L H 98-107 CARBON DIOXIDE 26 meq/L 22-31 CALCIUM 9.6 mg/dL 8.4-10.4 PHOSPHOROUS 4.9 mg/dL H 2.3-4.7 ALBUMIN 3.9 g/dL 3.4-5 EGFR (CKD-EPI 2020) 84.5 >60 Jul 17, 2024 08:37 PM [facility] VITAMIN B1 PLASMA Specimen Type: PLASM A Comment: Vitamin supplementation within 24 hours prior to blood draw may affect the accuracy of the results. This test was developed and its analytical performance characteristics have been determined by [email or web address] [place], [place]. It has not been cleared or approved by the U.S. Food and Drug Administration. This assay has been validated pursuant to the CLIA regulations and is used for clinical purposes. Test Performed by [facility], [email or web address] [facility], [address] [place] [address] Remi Dos Santos M.D., Ph.D., Director of Laboratories , CLIA [id number] Ordering Provider: MINERVA POWELL Report Released Date/Time: Jul 17, 2024 04:40 PM Reporting Lab: [address] [address] Performing Lab: [facility] [address] [facility] VITAMIN B1 13 nmol/L 8-30 Jul 17, 2024 06:48 AM [facility] TSH (MA-PB) SERUM Specimen Type: SERUM No comment entered. Ordering Provider: REMINGTON COTA Report Released Date/Time: Jul 17, 2024 03:52 AM Reporting Lab: [address] [address] Performing Lab: [address] [address] TSH 3.837 u[IU]/mL 0.47-5 Jul 17, 2024 06:48 AM [facility] BASIC METABOLIC PANEL PLASMA Specimen Type: PL ASMA Comment: No hemolysis noted. Ordering Provider: REMINGTON COTA Report Released Date/Time: Jul 16, 2024 11:36 PM Reporting Lab: [address] [address] Performing Lab: [address] [address] CREATININE 0.89 mg/dL 0.6-1.1 UREA NITROGEN 14.1 mg/dL 9.0-25.0 GLUCOSE 86 mg/dL 72-99 SODIUM 144 meq/L 136-145 POTASSIUM 3.5 meq/L 3.5-5 CHLORIDE 109 meq/L H 98-107 CARBON DIOXIDE 24 meq/L 22-31 CALCIUM 9.7 mg/dL 8.4-10.4 EGFR (CKD-EPI 2020) 80.4 >60 Jul 17, 2024 06:48 AM [facility] CBC BLOOD Specimen Type: BLOOD No comment entered. Ordering Provider: REMINGTON COTA Report Released Date/Time: Jul 16, 2024 11:36 PM Reporting Lab: [address] [address] Performing Lab: [address] [address] WBC 6.0 10*3/uL 3.6-11.2 RBC 4.55 10*6/uL [...] 0.00-0. 20 Jul 16, 2024 11:44 PM [facility] MRSA SURVL NARES DNA NARES Specimen [...] Jul 16, 2024 11:36 PM Reporting Lab: [place] [address] Performing Lab: [address] [address] MRSA SURVL NARES DNA Negative Negative Jul 16, 2024 04:15 PM [facility] TEST URINE (MA-STL) URINE Specimen Type: URINE No comment entered. Ordering Provider: ROBERTA RIVAS Report Released Date/Time: Jul 16, 2024 01:23 PM Reporting Lab: [address] [address] Performing Lab: [address] [address] Qualitative Test NEG NEGAT MISAEL Jul 16, 2024 04:15 PM [facility] URINALYSIS W/ CX REFLEX (STL-PB) URINE Specim en Type: URINE No comment entered. Ordering Provider: ROBERTA RIVAS Report Released Date/Time: Jul 16, 2024 01:23 PM Reporting Lab: [address] [address] Performing Lab: [address] [address] URINE COLOR Yellow Yellow U.BILIRUBIN Negative mg/dL [...] 1.026 1.005-1.029 Jul 16, 2024 02:30 PM [facility] CPK PLASMA Specimen Type: PLASM A Comment: No hemolysis noted. Ordering Provider: ROBERTA RIVAS Report Released Date/Time: Jul 16, 2024 01:23 PM Reporting Lab: [address] [address] Performing Lab: [address] [address] CPK 92 U/L 29-168 Jul 16, 2024 02:30 PM [facility] PHOSPHOROUS PLASMA Specimen Type: PLASM A Comment: No hemolysis noted. Ordering Provider: ROBERTA RIVAS Report Released Date/Time: Jul 16, 2024 01:23 PM Reporting Lab: [facility] [address] [place] [address] Performing Lab: [facility] [address] [place] [address] PHOSPHOROUS 3.4 mg/dL 2.3-4.7 Jul 16, 2024 02:30 PM [facility] MAGNESIUM PLASMA Specimen Type: PLASM A Comment: No hemolysis noted. Ordering Provider: ROBERTA RIVAS Report Released Date/Time: Jul 16, 2024 01:23 PM Reporting Lab: [facility] [address] [place] [address] Performing Lab: [address] [address] MAGNESIUM 2.0 mg/dL 1.6-2.6 Jul 16, 2024 02:30 PM [facility] COMPREHENSIVE METABOLIC PANEL PLASMA Specimen Type: PLASMA Comment: No hemolysis noted. Ordering Provider: ROBERTA RIVAS Report Released Date/Time: Jul 16, 2024 01:23 PM Reporting Lab: [address] [address] Performing Lab: [address] [address] CREATININE 0.86 mg/dL 0.6-1.1 UREA NITROGEN 15.1 [...] 83.8 >60 Jul 16, 2024 02:30 PM [facility] CBC BLOOD Specimen Type: BLOOD No comment entered. Ordering Provider: ROBERTA RIVAS Report Released Date/Time: Jul 16, 2024 01:23 PM Reporting Lab: [address] [address] Performing Lab: [address] [address] WBC 6.3 10*3/uL 3.6-11.2 RBC 4.76 10*6/uL [...] Jul 16, 2024 11:43 PM 194.8 36 [facility] Jul 16, 2024 11:42 PM 98.1 94 131/87 18 97 7 [facility] Jul 16, 2024 10:15 PM 84 117/91 [facility] Jul 16, 2024 07:30 PM 74 115/95 [facility] Jul 16, 2024 05:00 PM 87 139/91 [facility] Social History: Smoking Status (Most current) and Tobacco Use (All prior to encounter date) This section includes the most current, and the historical, smoking and tobacco- related health factors from the [place] facility where the Encounter took place. Current Smoking Status This section includes the most current smoking, or tobacco-related health factor, from the [place] facility where the Encounter took place. Date/Time Current Smoking Status Comment Facil ity Nov 09, 2023 06:45 AM ORYX ADMIT TOBACCO SCREEN NO [facility] Tobacco Use History This section includes a history of the smoking, or tobacco-related health factors, that were collected on or before the date of the Encounter. The data comes from the [place] facility where the Encounter took place. Date/Time Smoking Status/Tobacco Use Comment F acility May 25, 2022 11:42 AM ORYX ADMIT TOBACCO SCREEN NO [facility] May 13, 2022 08:14 PM ORYX ADMIT TOBACCO SCREEN NO [facility] Apr 07, 2022 03:34 AM ORYX ADMIT TOBACCO SCREEN REFUSED [facility] Dec 20, 2021 12:44 PM ORYX ADMIT TOBACCO SCREEN NO [facility] Aug 23, 2021 08:22 PM ORYX ADMIT TOBACCO SCREEN NO [facility] Aug 12, 2021 06:24 PM ORYX ADMIT TOBACCO SCREEN NO [facility] May 12, 2008 06:16 PM LIFETIME NON-USER OF TOBACCO [facility] Jun 28, 2007 01:18 PM LIFETIME NON-USER OF TOBACCO [facility] May 03, 2006 10:56 AM LIFETIME NON-TOBACCO USER [facility] Dec 03, 2003 08:16 AM LIFETIME NON-TOBACCO USER [facility] Radiology Reports: +/- 30 days of [...] the Encounter. The data comes from all [facility] facilities. Date/Time Radiology Report Provider Source Jul 16, 2024 02:59 PM TIBIA & FIBULA,LEF T, 2 [id number] -1975 F Exm Date: JUL 16, 2024@14:59 Req Phys: ROBERTA RIVAS Pat Loc: -EMERGENCY DEPT 2ND SHIFT (R Img Loc: -MAIN RADIOLOGY SUITE Service: Unknown Screen: Patient answered no [facility] [address] [place] [address] (Case [id number] COMPLETE) TIBIA & FIBULA,LEFT, 2 VIEWS (RAD Detailed) CPT:56370 Proc Modifiers : LEFT Reason for Study: left calf pain, rule out foregin body Clinical History: Report Status: Verified Date Reported: JUL 16, 2024 Date Verified: JUL 16, 2024 Hasher Operator E-Sig:/MADALYN/INDIO HOROWITZ Report: EXAMINATION: TIBIA & FIBULA,LEFT, 2 [...] radiopaque foreign bodies. Primary Interpreting Staff: INDIO HOROWITZ, Diagnostic Radiologist (Hasher Operator) /INDIO BRANDT [facility] Jul 16, 2024 02:47 PM US EXTREMITY VEINS UNILAT OR LTD: REBECA [facility] [id number] -1975 F Exm Date: JUL 16, 2024@14:47 Req Phys: ROBERTA RIVAS Loc: BIN-EMERGENCY DEPT 2ND SHIFT (R Img Loc: BIN-ULTRASOUND Service: Unknown Screen: Patient answered no [facility] [address] [place] [address] (Case [id number] COMPLETE) US EXTREMITY VEINS UNILAT OR LTD (US Detailed) CPT:92450 Reason for Study: left leg pain Clinical History: Report Status: Verified Date Reported: JUL 16, 2024 Date Verified: JUL 16, 2024 Hasher Operator E-Sig:/MADALYN/INDIO HOROWITZ Report: Case [id number] US EXTREMITY VEINS UNILAT OR LTD Comparison: Left lower extremity ultrasound 11/09/2023. Findings: The left lower extremity deep veins are compressible throughout their course. No thrombi are visualized. Venous flow velocities demonstrate normal variation with respiration and augmentation. Impression: No evidence of deep venous thrombosis of the left lower extremity deep veins. Dictated by Kanika Lucero M.D. (resident care coordinator). [employer], have reviewed the images and report and concur with these findings. Primary Interpreting Staff: INDIO HOROWITZ, Diagnostic Radiologist (Hasher Operator) Primary Interpreting Resident: KANIKA LUCERO, Diagnostic Laborer [employer] /INDIO ABARCA [facility] Jun 27, 2024 06:00 AM MRI SPINE THORACIC W/O CONT: REBECA NUNES [id number] -1975 F Exm Date: JUN 27, 2024@06:00 Req Phys: BARRERAVERNA TENORIO Pat Loc: [facility] PACT 6 PCP (Req'g Lo Img Loc: OUTSIDE -MRI Service: Unknown Screen: Patient answered no (Case [id number] COMPLETE) MRI SPINE THORACIC W/O CONT (MRI Detailed) CPT:99442 Reason for Study: OUTSIDE STUDY Clinical History: Report Status: Electronically Filed Date Reported: JUL 08, 2024 Report: This study was performed outside the [place] in [place] facility and images were uploaded into [employer]. The report has been scanned into [employer]. In order to upload images a case number was needed, therefore this is an administrative report. Impression: This study was performed outside the [place] in another facility and images were uploaded into [employer]. The report has been scanned into [employer]. In order to upload images a case number was needed, therefore this is an administrative report VERIFIED BY: / *ELECTRONICALLY FILED* [facility] Encounter Notes: All associated encounter notes This section contains the clinical notes associated to the Encounter. Date/Time Encounter Note(s) Provider Source Jul 20, 2024 03:53 PM NURSING NOTE: LOCAL TITLE: [facility]G IV INSERTION AND MAINTENANCE STANDARD TITLE: NURSING NOTE DATE OF NOTE: JUL 20, 2024@15:53 ENTRY DATE: JUL 20, 2024@15:53:46 AUTHOR: LOGAN MEJIAS COSIGNER: URGENCY: STATUS: COMPLETED Version 2.2 Charting in accordance with [place] APPROVED [place] STANDARD (VAAES) ACUTE INPATIENT/REHABILITATION NURSING ADMISSION SCREENING, ASSESSMENT, AND STANDARDS OF CARE ====== IV Line Insertion and Maintenance ====== ====== Peripheral IV ====== Line #1: Discontinue: Location: Right, Hand Date/Time: Jun@15:53 Reason for discontinuation: Therapy complete /es/ BERTIN CHUNG RN REGISTERED NURSE Signed: 07/20/2024 15:54 LOGAN MEJIAS [facility] Jul 20, 2024 03:49 PM NURSING TRANSFER SUMMARIZATION DISCHARGE NOTE: LOCAL TITLE: YANNA DISCHARGE/TRANSFER SUMMARY [facility] STANDARD TITLE: NURSING TRANSFER SUMMARIZATION DISCHARGE NOTE DATE OF NOTE: JUL 20, 2024@15:49 ENTRY DATE: JUL 20, 2024@15:50:03 AUTHOR: LOGAN MEJIAS EXP COSIGNER: URGENCY: STATUS: COMPLETED DISCHARGE - TRANSFER SUMMARY Action: Discharge Diagnosis: Last Admission: 07/16/24 11:33:02 pm Admit Dx: INTRACTABLE SCIATICA Age: 49 Allergies: VITAMIN B12 1000MCG, PANTOPRAZOLE, AMOXICILLIN, FLONASE NASAL SOLUTION PREGABALIN, GABAPENTIN, METHOCARBAMOL Patient Condition: Stable Vital Signs: Temperature: 97.9 F [36.6 C] (07/20/2024 12:00) Pulse: 61 (07/20/2024 12:00) Respiration: 18 (07/20/2024 12:00) Blood Pressure: 115/69 (07/20/2024 12:00) Pain: 4 (07/20/2024 12:00) Fall Risk Assessment Score: high Fall Risk Level: High Risk = SUICIDE SCREEN = [place] Suicide Severity Rating Scale (C-SSRS) 1. Over the past month, have you [...] required due to responses to other questions. C-SSRS Screen is Negative LEVEL OF LIFT REQUIRED: No assistance Safe Patient Handling - Patient Mobility Assessment Tool Isolation: No Precautions: Fall Orientation: x3 Hygiene: Self Care Nutrition: Regular diet Special needs: Assistance: Independent Bowel/Bladder: Date of last bowel movement: Jun Defecation: Normal Able to void: YES Continent: YES Catheter: No Wound / Skin Condition: Assessment Type: SKIN REINSPECTION/REASSESSMENT SKIN INSPECTION: Skin Color: Usual for ethnicity Skin Temperature: Warm Skin Moisture: Normal Skin Turgor: Elastic (normal/immediate) Hugo Skin Assessment: The patient's Hugo Scale Score is 21. The patient is considered not at risk for development of pressure ulcers/injuries. Sensory perception -- ability to respond meaningfully to pressure-related discomfort No impairment. Moisture -- degree to which skin is exposed to moisture Rarely moist. Activity -- ability to change and control body position Walks frequently. Mobility -- ability to change and control body position Slightly limited. Nutrition -- usual food intake patterns Adequate. Friction and shear No apparent problem. INTERVENTIONS: No change in previous interventions as listed below 07/19/2024 [facility] Pressure Injury Int Not Needed RISK FACTORS THAT INCREASE RISK FOR DEVELOPING PRESSURE INJURIES The patient/resident does not have any additional risk factors. SKIN ALTERATIONS: Pressure Ulcer/Injury Documentation from the past year: No data available SKIN ALTERATIONS: Wound Documentation from the past year: No data available for: Skin Integrity - Wound Skin Integrity - Wound Second Skin Integrity - Wound Third Skin Integrity - Wound Fourth Skin Integrity - Wound Fifth Skin Integrity - Wound Additional SKIN INTEGRITY: Intact STANDARD OF CARE / PRACTICE IMPLEMENTED: Injury due to fall will be minimized during hospital stay, --Verbalize safety measures to lower risk of fall/injury (lock w/c, use hand rails, ask for assistance) , --Identify factor(s) that may increase risk of fall before discharge, --Maintain or preserve physical mobility during hospital stay--Be able to participate in daily activities, --Achieve acceptable pain level per patient, --Verbalize satisfaction with pain management ongoing, --Verbalize understanding of disease., --Be free of injury during hospital stay, --Identify techniques that prevent, decrease pain and improve coping mechanism i.e. relaxation Indicate status at Discharge/Transfer: Stabilized Flu Shot Given: No Patient received flu vaccine prior to admission Pneumococcal Shot Given: No Patient received Pneumococcal vaccine prior to admission MRSA Discharge Swab Done: No Reason: policy Discharged/Transfered to: Own home without home care services Accompanied by (Name & Relationship): daughter Next of Kin notified: YES Discharge/Transfer Mode: Ambulatory With Walker Discharged/Transferred with: Written Discharge Instructions Medications Return Appointments [facility] was informed of the date and time of his/her follow-up mental health appointments: YES The was provided the opportunity to cancel or change his/her scheduled follow-up mental health appointments: YES [facility] was educated about what to do and who to contact should he/she need to cancel the follow-up mental health appointment: YES Clothing / Valuables returned: Yes Describe: shirt, shorts, shoes, cell phone, purse, wilson Prosthetics with patient: Dentures/Partials with patient: None Glasses with patient: NA Other: NA Printed MD Instruction sheet with medication list reviewed and given to the patient/caregiver. Patient/Caregiver verifies medication list is complete and accurate. Patient/Caregiver appeared ready for instruction (good eye contact, appropriate questions, active participation, etc) Person(s) who received education: Patient Education Topic/Teaching Needs: Disease/Condition Medication Follow-up Instructions Methods used Included: A copy of the Discharge Instructions Health Summary given to patient/caregiver and signed by patient/guardian. Patient's medications were reviewed and reconciled by discharge team. Teaching outcomes: Good level of understanding Able to explain perdomo concepts Performs skill(s) effectively /es/ BERTIN CHUNG RN REGISTERED NURSE Signed: 07/20/2024 15:53 LOGAN MEJIAS [facility] Jul 20, 2024 01:43 PM DISCHARGE SUMMARY: [facility] TITLE: Discharge Summary STANDARD TITLE: DISCHARGE SUMMARY DICT DATE: JUL 20, 2024@13:00 ENTRY DATE: JUL 20, 2024@13:01:12 DICTATED BY: MINERVA POWELL ATTENDING: ELISABETH VERDUGO URGENCY: routine STATUS: COMPLETED INTERNAL MEDICINE DISCHARGE SUMMARY: PRINCIPAL DIAGNOSIS: Acute on chronic left leg pain SECONDARY DIAGNOSES: Significant Medical Problems PRESENT on Admission: Fibromyalgia, restless leg syndrome, chronic left leg pain syndrome, iron deficiency Significant Medical Problems NOT PRESENT on Admission: None OPERATIVE/INVASIVE PROCEDURES: None ATTENDING PHYSICIAN: Elisabeth Verdugo M.D. BRIEF HISTORY, ESSENTIAL PHYSICAL FINDINGS AND HOSPITAL COURSE: 48-year-old female with PMH of fibromyalgia, chronic pain syndrome, RLS, chronic left leg pain presenting with acute on chronic left leg pain of unknown origin. Neurology and psychiatry consulted for leg pain as both have evaluated patient in the outpatient setting. Neurology evalauted patient and recommending no further workup at this time, they do not suspect organic cause of pain. After discussing with psychiatry patient not interested in titrating psychotropics inpatient. Pain controlled with oxycodone and titrated as tolerable. Found to be iron deficient and repleted with IV iron to help with RLS symptoms. Patient was weaned off to a very minimal amount of oxycodone needed to control her pain. Per recommendations from psychiatry pramipexole was reduced in dose in an effort to wean her off of pramipexole in favor of gabapentin for control of restless leg syndrome symptoms. Pramipexole weaned to 1 mg twice daily for 3 days and then started dose of 0.5 mg twice daily however only received 1 dose before being discharged. B12 level was checked and low despite being on monthly B12 injections, restarted on B12 1000 mcg weekly injections for 8 weeks (first dose already given) to be followed by monthly injections. Discharged with 6 tablets of oxycodone 5 mg to take as needed for breakthrough pain with understanding that this is not a long-term pain management option and no refills are available. Patient was discharged to follow-up with her PCP, sleep medicine, and psychiatry in the week after discharge. Of note, patient had 1 episode of hypoglycemia that was asymptomatic. Her A1c last checked was 5.7% making her prediabetic and she has been on metformin which was not continued while inpatient. This medication was discontinued on discharge. FOLLOW-UP: 07/23/2024 11:30 [facility] FOLLOW-UP CARE: Not Applicable DISCHARGE MEDICATIONS: Active Outpatient Medications (including Supplies): Active [...] 30MG FOR TOTAL OF 90MG DAILY 4) LEVOTHYROXINE NA (SYNTHROID) 175MCG TAB TAKE ONE ACTIVE TABLET BY MOUTH EVERY MORNING BEFORE A MEAL FOR HYPOTHYROIDISM TAKE 30 MINUTES BEFORE FOOD. TAKE SEPARATELY FROM ALL OTHER MEDICATIONS. 5) LIDOCAINE 5% OINT APPLY SPARINGLY TO AFFECTED AREA(S) ACTIVE ONCE A DAY NEEDED FOR PAIN (EXTERNAL USE ONLY) (WASH HANDS THOROUGHLY AFTER USE) 6) METHYLPREDNISOLONE 4MG TAB DOSEPAK,21 TAKE TABLETS BY ACTIVE MOUTH DIRECTED TAKE 6 TABLETS BY MOUTH ON DAY ONE, THEN DECREASE BY ONE TABLET DAILY UNTIL GONE. TAKE WITH FOOD. 7) ONDANSETRON HCL 8MG TAB TAKE ONE-HALF TABLET BY MOUTH ACTIVE EVERY 6 HOURS NEEDED FOR NAUSEA/VOMITING 8) SYRINGE 3ML/NDL 23G 1.5IN USE 1 SYRINGE ACTIVE INTRAMUSCULARLY EVERY MONTH FOR CYANOCOBALAMIN ADMINISTRATION 9) TIZANIDINE HCL 4MG TAB TAKE ONE TABLET BY MOUTH THREE ACTIVE TIMES A DAY NEEDED FOR SPASTICITY 10) TRAZODONE HCL 100MG TAB TAKE ONE TABLET BY MOUTH AT ACTIVE BEDTIME NEEDED FOR INSOMNIA Pending Outpatient Medications Status 1) CYANOCOBALAMIN 1000MCG/ML INJ INJECT 1000MCG/1ML PENDING INTRAMUSCULARLY MONDAY@1300 2) DULOXETINE HCL 30MG EC CAP TAKE ONE CAPSULE BY MOUTH PENDING ONCE A DAY DO NOT ABRUPTLY DISCONTINUE MEDICATION. TO BE TAKEN ALONG WITH 60MG FOR TOTAL OF 90MG DAILY 3) FOLIC ACID 1MG TAB TAKE ONE TABLET BY MOUTH ONCE A PENDING DAY 4) GABAPENTIN 300MG CAP TAKE ONE CAPSULE BY MOUTH AT PENDING BEDTIME 5) OXYCODONE HCL 5MG TAB TAKE ONE TABLET BY MOUTH EVERY PENDING 6 HOURS NEEDED MAY CAUSE CONSTIPATION 6) PRAMIPEXOLE DIHYDROCHLORIDE 1MG TAB TAKE ONE-HALF PENDING TABLET BY MOUTH TWICE A DAY 7) PRAZOSIN HCL 1MG CAP TAKE ONE CAPSULE BY MOUTH AT PENDING BEDTIME MAY CAUSE DIZZINESS OR DROWSINESS. 17 Total Medications ALLERGIES OR DRUG SENSITIVITIES: VITAMIN B12 1000MCG, PANTOPRAZOLE, AMOXICILLIN, FLONASE NASAL SOLUTION PREGABALIN, GABAPENTIN, METHOCARBAMOL DIET: Regular ACTIVITY: As tolerated INFORMATION REGARDING CONDITION OR PROPER HOME AND/OR WOUND CARE: Not Applicable RETURN TO WORK: As able, no contraindications to work DISPOSITION: [X} Discharge home [ ] Discharge to home hospice [ ] Transfer to [facility] [ ] Transfer to rehab [ ] Transfer to psychiatry [ ] Transfer to Spinal cord injury unit [ ] Transfer to hospice [ ] Transfer to outside facility: [ ] Transfer to outside facility under hospice: [ ] : autopsy approved by Next of Kin [ ] : autopsy not approved by Next of Kin [ ] : autopsy resulting from shucker's case [ ] Other: COMPETENCY: [X} The patient is competent in the VA sense of the word. [ ] The patient is not competent in the VA sense of the word. TOTAL TIME SPENT FOR FINAL HOSPITAL DISCHARGE: 60 minutes. Verified By T/ALICE /madalyn/ Minerva Powell MD Resident Physician Signed: 07/24/2024 07:11 /madalyn/ ELISABETH VERDUGO M.D. STAFF PHYSICIAN Cosigned: 07/26/2024 10:59 MINERVA POWELL [facility] Jul 20, 2024 11:42 AM PHYSICIAN EDUCATION DISCHARGE NOTE: LOCAL TITLE: DISCHARGE INSTRUCTIONS [facility] STANDARD TITLE: PHYSICIAN EDUCATION DISCHARGE NOTE DATE OF NOTE: JUL 20, 2024@11:42 ENTRY DATE: JUL 20, 2024@11:43:06 AUTHOR: MINERVA POWELL EXP COSIGNER: ELISABETH VERDUGO URGENCY: STATUS: COMPLETED DISCHARGE INSTRUCTIONS [facility] Has ADDENDA INTERNAL MEDICINE DISCHARGE INSTRUCTIONS: MEDICATIONS THAT WERE CHANGED: - Pramipexole was decreased down to 0.5 mg twice daily starting today to end 07/22 with the last dose in the afternoon -Vitamin B12 injections 1000 mcg please take weekly for the following 7 weeks and then after that coordinate with your primary care doctor to take once a month to replete your vitamin B12 levels MEDICATIONS THAT WERE STOPPED (AND REASON FOR STOPPING): - Eventually will stop taking pramipexole NEW MEDICATIONS WITH INSTRUCTIONS: - Gabapentin 300 mg every night, take 2 hours before bedtime for restless leg syndrome -Prazosin 1 mg every night, take before bedtime, this should help with night terrors from PTSD -Folic acid supplement 1 mg daily, to help supplement your folic acid levels DATE OF ADMISSION: Jun 23:33 DATE OF DISCHARGE: Jun REASON(S) FOR BEING IN THE HOSPITAL: Dear Mrs Nunes, You were admitted for worsening of your left leg pain. Whilewe are not 100% certain of the cuase we think that your restless leg syndrome may be contributing to the pain. We found that you are iron deficient and gave you a full dose of IV iron to replete your iron stores. We also started you on a medication called prazosin that may help with night terrors. We treated your pain with oxycodone as well as starting gabapentin which was able to control the pain. Please follow-up with your psychiatrist next week and eventually with pain medicine nurse practitioner Chitra Garcia. We also encourage you to follow-up with sleep medicine to help with your obstructive sleep apnea and restless leg syndrome. Please follow-up with your primary care doctor within the next 2 weeks. YOUR OUTPATIENT CARE TEAM: Team Information Primary Care Team: GISELLE TAVERAS PACT 6 PCP *WH* PC Provider: VERNA BARRERA Position: PHYSICIAN Non-PC Team: [facility] Non-PC Provider: ZAID BOLIVAR Position: ([facility]) REGISTERED FUTURE APPOINTMENTS: 07/23/2024 11:30 [facility] INPATIENT APPOINTMENT ADDITIONAL FOLLOW UP CARE: We are requesting that you follow-up with sleep medicine, psychiatry, your primary care doctor YOUR KNOWN ALLERGIES: VITAMIN B12 1000MCG, PANTOPRAZOLE, AMOXICILLIN, FLONASE NASAL SOLUTION PREGABALIN, GABAPENTIN, METHOCARBAMOL CALL YOUR DOCTOR IF YOU HAVE ANY OF THESE PROBLEMS: Cardiovascular Disease (heart problems): Inability to tolerate your usual activities, Other:Low blood pressure, palpitations (fast heart rate) PHYSICAL ACTIVITY: Activity as tolerated DIET: Oral Nutrition/Diet Instructions Regular Diet: A healthy eating plan will maintain or promote good health. -Consume a diet rich in fruits, vegetables, whole grains, and healthy oils -Choose lean protein sources such as fish, poultry, beans/legumes, and non-fat or low-fat dairy sources. -Limit saturated fat such as fatty cuts of beef, davis, pork, chicken with skin, whole milk, cream, butter -Minimize consumption of sugary drinks, desserts -Limit deep-fried foods and fast foods -Limit the use of added table salts, salt-type seasoning, and processed foods -Speak to a Registered Dietitian about other healthy eating tips and meal planning DEVICES AT DISCHARGE: Not Applicable: The patient should be discharged with no urinary catheter or intravenous access TOBACCO & ALCOHOL: Discharge tobacco cessation medication(s) not indicated due to: Other reason(s) documented by physician/SENIOR WEB DEVELOPER/PA or pharmacist Reason(s): patient does not smoke Discharge medications for alcohol/drug disorder not offered Reason: patient does not drink DISCHARGE INSTRUCTIONAL MATERIALS: CONDITION OF PATIENT AT DISCHARGE: Stable DISCHARGE DESTINATION: Home OTHER (RETURN TO WORK): Can return to work when she feels that she is able NOTE: If you are having feelings of Depression or Emotional Distress, or feel you just need to talk with someone, please call [phone]), [facility] - [facility] 1. COPY OF DISCHARGE INSTRUCTIONS: The patient/family understands and will be provided a copy of these discharge instructions. DISCHARGE MEDICATION LIST: Active Outpatient Medications (including Supplies): Active Outpatient [...] 30MG FOR TOTAL OF 90MG DAILY 4) LEVOTHYROXINE NA (SYNTHROID) 175MCG TAB TAKE ONE ACTIVE TABLET BY MOUTH EVERY MORNING BEFORE A MEAL FOR HYPOTHYROIDISM TAKE 30 MINUTES BEFORE FOOD. TAKE SEPARATELY FROM ALL OTHER MEDICATIONS. 5) LIDOCAINE 5% OINT APPLY SPARINGLY TO AFFECTED AREA(S) ACTIVE ONCE A DAY NEEDED FOR PAIN (EXTERNAL USE ONLY) (WASH HANDS THOROUGHLY AFTER USE) 6) METHYLPREDNISOLONE 4MG TAB DOSEPAK,21 TAKE TABLETS BY ACTIVE MOUTH DIRECTED TAKE 6 TABLETS BY MOUTH ON DAY ONE, THEN DECREASE BY ONE TABLET DAILY UNTIL GONE. TAKE WITH FOOD. 7) ONDANSETRON HCL 8MG TAB TAKE ONE-HALF TABLET BY MOUTH ACTIVE EVERY 6 HOURS NEEDED FOR NAUSEA/VOMITING 8) SYRINGE 3ML/NDL 23G 1.5IN USE 1 SYRINGE ACTIVE INTRAMUSCULARLY EVERY MONTH FOR CYANOCOBALAMIN ADMINISTRATION 9) TIZANIDINE HCL 4MG TAB TAKE ONE TABLET BY MOUTH THREE ACTIVE TIMES A DAY NEEDED FOR SPASTICITY 10) TRAZODONE HCL 100MG TAB TAKE ONE TABLET BY MOUTH AT ACTIVE BEDTIME NEEDED FOR INSOMNIA Pending Outpatient Medications Status 1) CYANOCOBALAMIN 1000MCG/ML INJ INJECT 1000MCG/1ML PENDING INTRAMUSCULARLY MONDAY@1300 2) DULOXETINE HCL 30MG EC CAP TAKE ONE CAPSULE BY MOUTH PENDING ONCE A DAY DO NOT ABRUPTLY DISCONTINUE MEDICATION. TO BE TAKEN ALONG WITH 60MG FOR TOTAL OF 90MG DAILY 3) FOLIC ACID 1MG TAB TAKE ONE TABLET BY MOUTH ONCE A PENDING DAY 4) GABAPENTIN 300MG CAP TAKE ONE CAPSULE BY MOUTH AT PENDING BEDTIME 5) PRAMIPEXOLE DIHYDROCHLORIDE 1MG TAB TAKE ONE-HALF PENDING TABLET BY MOUTH TWICE A DAY 6) PRAZOSIN HCL 1MG CAP TAKE ONE CAPSULE BY MOUTH AT PENDING BEDTIME MAY CAUSE DIZZINESS OR DROWSINESS. 16 Total Medications Active Remote Medications: No Active Remote Medications for this patient /madalyn/ Minerva Powell MD Resident Physician Signed: 07/20/2024 11:52 /es/ ELISABETH VERDUGO M.D. STAFF PHYSICIAN Cosigned: 07/20/2024 12:32 07/20/2024 ADDENDUM STATUS: COMPLETED After further discussion with patient regarding pain control patient preferred small supply of oxycodone for breakthrough pain at time of discharge - Oxycodone 5mg - 6 tablets, 0 refills to be take every 6 hours as needed ordered to be picked up at pharmacy window /madalyn/ Minerva Powell MD Resident Physician Signed: 07/20/2024 12:09 /es/ ELISABETH VERDUGO M.D. STAFF PHYSICIAN Cosigned: 07/20/2024 12:32 MINERVA POWELL [facility] Jul 20, 2024 10:37 AM NURSING NOTE: LOCAL TITLE: [facility] SKIN INSPECTION/ASSESSMENT STANDARD TITLE: NURSING NOTE DATE OF NOTE: JUL 20, 2024@10:37 ENTRY DATE: JUL 20, 2024@10:37:46 AUTHOR: LOGAN MEJIAS COSIGNER: URGENCY: STATUS: COMPLETED Assessment Type: SKIN REINSPECTION/REASSESSMENT SKIN INSPECTION: Skin Color: Usual for ethnicity Skin Temperature: Warm Skin Moisture: Normal Skin Turgor: Elastic (normal/immediate) Hugo Skin Assessment: The patient's Hugo Scale Score is 21. The patient is considered not at risk for development of pressure ulcers/injuries. Sensory perception -- ability to respond meaningfully to pressure-related discomfort No impairment. Moisture -- degree to which skin is exposed to moisture Rarely moist. Activity -- ability to change and control body position Walks frequently. Mobility -- ability to change and control body position Slightly limited. Nutrition -- usual food intake patterns Adequate. Friction and shear No apparent problem. INTERVENTIONS: No change in previous interventions as listed below 07/19/2024 [facility] Pressure Injury Int Not Needed RISK FACTORS THAT INCREASE RISK FOR DEVELOPING PRESSURE INJURIES The patient/resident does not have any additional risk factors. SKIN ALTERATIONS: Pressure Ulcer/Injury Documentation from the past year: No data available SKIN ALTERATIONS: Wound Documentation from the past year: No data available for: Skin Integrity - Wound Skin Integrity - Wound Second Skin Integrity - Wound Third Skin Integrity - Wound Fourth Skin Integrity - Wound Fifth Skin Integrity - Wound Additional SKIN INTEGRITY: Intact /es/ BERTIN CHUNG RN REGISTERED NURSE Signed: 07/20/2024 10:38 LOGAN MEJIAS [facility] Jul 20, 2024 10:36 AM NURSING INPATIENT NOTE: LOCAL TITLE: [facility] ACUTE INPATIENT NSG SHIFT ASSESSMENT STANDARD TITLE: NURSING INPATIENT NOTE DATE OF NOTE: JUL 20, 2024@10:36 ENTRY DATE: JUL 20, 2024@10:36:22 AUTHOR: LOGAN MEJIAS EXP COSIGNER: URGENCY: STATUS: COMPLETED Version 2.2 Charting in accordance with [facility] STANDARD (INAES) ACUTE INPATIENT/REHABILITATION NURSING ADMISSION SCREENING, ASSESSMENT, AND STANDARDS OF CARE ==== ASSESSMENT ==== ==== HANDOFF ==== Bedside report and handoff completed Safety check completed ==== PAIN ASSESSMENT ==== Patient's acceptable pain goal: 0 No pain Are you currently experiencing pain? Yes - DVPRS scale used to assess Location: left hip [facility] [employer] [facility] Pain Rating Scale (DVPRS): 5 Interrupts some activities Pain Score: 0 ==== CRISTOBAL FALL SCALE & TIPS PROGRAM ==== Cristobal Fall Scale: The Cristobal Fall scale was performed and score was 85. This is indicative of high risk for falls. History of falling: immediate or within 3 months? Yes Secondary diagnosis: Yes Ambulatory aid: Crutches/cane(s)/walker Intravenous therapy/Heparin lock: Yes Gait/Transferring: Weakness Mental Status: Oriented to own ability/knows own limitations Fall Tailoring Interventions for Patient Safety (TIPS) Fall TIPS initiated with patient: Yes Interventions: Walking Aids: Walker Assistance out of bed: Call for assistance before getting out of bed Safe patient handling device necessary Fall TIPS reviewed with patient: Yes Interventions: Walking Aids: Walker Assistance out of bed: Call for assistance before getting out of bed Safe patient handling device necessary ==== ENVIRONMENTAL SAFETY MANAGEMENT ==== Implemented safety standards of care: -[place] to unit & environment -Adequate room lighting -Bed in low and locked position -Call light within reach -Personal items within reach -Traffic path in room free of clutter -Non-slip footwear -Upper/half length side rails up for bed mobility -Sensory aids within reach -Encourage patient to utilize sensory support Additional safety measures: Alarms: Bed Mobility support items readily available ==== NEUROLOGICAL ==== Neurological Orientation: Oriented x4 Level of Consciousness (AVPU): Alert = Appears aware of and responsive to the environment on their own. Follows commands, opens eyes spontaneously, and tracks objects. Affect/behavior: Cooperative Calm [place] Agitation Sedation Scale (RASS): 0 Alert and calm ==== NEUROMUSCULAR/NEUROVASCULAR EXTREMITIES ASSESSMENT ==== Strength: Riding Teacher Bilateral: Moderate Upper Extremity Bilateral: Full strength Lower Extremity Bilateral: Full strength Sensation: Upper Extremity Sensation Bilateral: Intact Lower Extremity Sensation Bilateral: Intact Temperature: Upper Extremity Temperature Bilateral: Warm Lower Extremity Temperature Bilateral: Warm ==== CARDIOVASCULAR ==== Capillary Refill: All 4 extremities, less than or equal to 3 seconds. Peripheral Pulses: R Radial: 3+ Normal L Radial: 3+ Normal R Dorsalis Pedis: 3+ Normal L Dorsalis Pedis: 3+ Normal R Posterior Tibial: L Posterior Tibial: R Popliteal: L Popliteal: Edema: Present Dependent Location: keft leg Cardiovascular - Embolism Prevention: Comment: lovenox ==== RESPIRATORY ==== Respirations: Unlabored Pattern: Regular Breath Sounds Auscultated: Right Upper Lobe: Clear Left Upper Lobe: Clear Right Middle Lobe: Right Lower Lobe: Left Lower Lobe: ==== GASTROINTESTINAL ==== Elimination: Continent Abdominal Description: Protuberant (central obesity) Palpation: Soft, Non-tender Bowel Sounds: RUQ: Active LUQ: Active RLQ: Active LLQ: Active ==== GENITOURINARY ==== Elimination: Continent Color/Characteristic: Diane === INTEGUMENTARY/SKIN/WOUND - (INCLUDING HUGO) SEE NOTE: VAAES SKIN INPECTION/ASSESSMENT === ==== ACTIVITIES OF DAILY LIVING ==== Hygiene ADLs: Hand Hygiene: Performed post toileting Performed pre meals/snacks Oral Care: Non-ventilator patient: Patient teeth brushed: Independently ==== MOBILITY ==== Mobility Status: Independent: Able to stand and step without staff assistance Equipment utilized: Walker Gait: Steady ==== IV LINES ==== Peripheral IV: Line #1: Assessment: Location: Right, Hand Gauge: 20 Dressing Condition: Clean, dry, intact Transparent dressing Site Condition: No redness, swelling, pain Line Status: Patent/infusing Capped Flushed ==== PSYCHOSOCIAL ==== Type of Emotional Support Provided: 1:1 discussion, Hospitalization discussion, Treatment discussion, Ventilation of feelings encouraged /es/ LOGAN A. REIM, BSN RN REGISTERED NURSE Signed: 07/20/2024 10:37 LOGAN MEJIAS [facility] Jul 20, 2024 10:32 AM NURSING INPATIENT NOTE: LOCAL TITLE: [facility] NURSING FREQUENT DOCUMENTATION STANDARD TITLE: NURSING INPATIENT NOTE DATE OF NOTE: JUL 20, 2024@10:32 ENTRY DATE: JUL 20, 2024@10:33:01 AUTHOR: LOGAN MEJIAS COSIGNER: URGENCY: STATUS: COMPLETED Version 2.4 Charting in accordance with IN APPROVED [place] STANDARD ([facility]) ACUTE INPATIENT/REHABILITATION NURSING ADMISSION SCREENING, ASSESSMENT, AND STANDARDS OF CARE ==== NATIONAL EARLY WARNING SCORE (NEWS) ==== The following vital measurements were used to complete the NEWS. Measurement DT TEMP PULSE RESP BP POx F(C) (L/MIN)(%) 07/20/2024 09:21 98.5(36.9) 60 18 99/60 95 The NEWS total is 3. 1. Temperature (C/F): Score = 0 36.1 - 38.0 C (96.9 - 100.4 F) 2. Pulse: Score = 0 51-90 3. Respirations: Score = 0 12-20 4. Blood Pressure (Only Systolic BP, mmHg): Score = 2 91-100 5. Pulse Oximetry: Score = 1 94% - 95% 6. Supplemental oxygen in use: Score = 0 No 7. AVPU: Score = 0 Alert Patient Status: Remains on unit /madalyn/ BERTIN CHUNG RN REGISTERED NURSE Signed: 07/20/2024 10:34 LOGAN MEJIAS [facility] Jul 20, 2024 06:13 AM NURSING INPATIENT NOTE: LOCAL TITLE: [facility] NURSING FREQUENT DOCUMENTATION STANDARD TITLE: NURSING INPATIENT NOTE DATE OF NOTE: JUL 20, 2024@06:13 ENTRY DATE: JUL 20, 2024@06:13:39 AUTHOR: BERTRAM WELSHIGNER: URGENCY: STATUS: COMPLETED Version 2.4 Charting in accordance with IN APPROVED [place] STANDARD (INAES) ACUTE INPATIENT/REHABILITATION NURSING ADMISSION SCREENING, ASSESSMENT, AND STANDARDS OF CARE ==== ACTIVITIES OF DAILY LIVING ==== Hygiene ADLs: Dressing: Upper Body: Independent Lower Body: Independent Eating: Independent Foot Care: Inspection Hand Hygiene: Performed post toileting Performed pre meals/snacks Oral Care: Non-ventilator patient: Patient teeth brushed: Independently [facility] [place] was educated that poor oral hygiene increases the risk of hospital acquired pneumonia and dental problems like gingivitis and tooth decay. was educated using their preferred method and verbalized understanding. Personal Care: Patient declined Comment: Patient stated will shower later Toileting: Independent ===== ACTIVITY/MOBILIZATION ===== Mobility Status: Independent: Equipment utilized: Other: wheel walker Mobilization Tolerance: Tolerates well Gait: [facility] Highest Level of Mobility achieved this shift: 6 - Walked 10 steps or more (walked to restroom) ==== ENVIRONMENTAL SAFETY MANAGEMENT ==== Implemented safety standards of care: -[place] to unit & environment -Adequate room lighting -Bed in low and locked position -Call light within reach -Personal items within reach -Traffic path in room free of clutter -Non-slip footwear -Upper/half length side rails up for bed mobility -Sensory aids within reach -Encourage patient to utilize sensory support ==== GASTROINTESTINAL ==== No bowel movement reported by patient Elimination: Continent ==== GENITOURINARY ==== Elimination: Continent /es/ BERTRAM Maik WELSH CNA GIS SOFTWARE DEVELOPER Signed: 07/20/2024 06:17 BERTRAM WELSH [facility] Jul 20, 2024 06:10 AM NURSING INPATIENT NOTE: LOCAL TITLE: [facility] NURSING FREQUENT DOCUMENTATION STANDARD TITLE: NURSING INPATIENT NOTE DATE OF NOTE: JUL 20, 2024@06:10 ENTRY DATE: JUL 20, 2024@06:10:54 AUTHOR: BERTRAM WELSH EXP COSIGNER: URGENCY: STATUS: COMPLETED Version 2.4 Charting in accordance with [facility] [place] [facility] [place] STANDARD ([facility]) ACUTE INPATIENT/REHABILITATION NURSING ADMISSION SCREENING, ASSESSMENT, AND STANDARDS OF CARE ==== PROVIDER NOTIFICATION ==== Provider Name: Ang Carter RN Notification Reason: Other: HR 54 /madalyn/ BERTRAM WELSH CNA GIS SOFTWARE DEVELOPER Signed: 07/20/2024 06:12 Receipt Acknowledged By: 08/09/2024 03:58 /angelika WALKER REGISTERED NURSE BERTRAM WELSH [facility] Jul 20, 2024 04:05 AM NURSING INPATIENT NOTE: LOCAL TITLE: [facility] PATIENT SAFETY CHECK STL STANDARD TITLE: NURSING INPATIENT NOTE DATE OF NOTE: JUL 20, 2024@04:05 ENTRY DATE: JUL 20, 2024@06:50:21 AUTHOR: ABILIO CARTER EXP COSIGNER: URGENCY: STATUS: COMPLETED BEDSIDE SAFETY CHECK STL A visual sweep of the patient's room for any physical or environmental safety concerns was completed and education provided to patient regarding their personal safety concerns. Comment: Patient in bed resting comfortable,RR even and nonlabored no signs and symptoms of pain or any distress noted. Call light within reach, continue to monitor. /angelika WALKER REGISTERED NURSE Signed: 07/20/2024 06:50 ABILIO CARTER [facility] Jul 20, 2024 02:42 AM NURSING TREATMENT PLAN NOTE: LOCAL TITLE: [facility] PLAN OF CARE STANDARD TITLE: NURSING TREATMENT PLAN NOTE DATE OF NOTE: JUL 20, 2024@02:42 ENTRY DATE: JUL 20, 2024@02:42:24 AUTHOR: ABILIO CARTER EXP COSIGNER: URGENCY: STATUS: COMPLETED Plan of Care and Discharge Plan (nurse) TREATMENT PLAN Patient involved in making decisions about their care, treatment and plan for discharge Yes Date: Jun Is the patient an elopement risk: No Does patient have pain and/or chest pain? Yes, Pain NURSING DIAGNOSIS: Alteration in comfort: pain related to Goals: Prior to discharge, patient will:--Injury due to fall will be minimized during hospital stay, --Verbalize safety measures to lower risk of fall/injury (lock w/c, use hand rails, ask for assistance) , --Identify factor(s) that may increase risk of fall before discharge, --Maintain or preserve physical mobility during hospital stay--Be able to participate in daily activities, --Achieve acceptable pain level per patient, --Verbalize satisfaction with pain management ongoing, --Verbalize understanding of disease., --Be free of injury during hospital stay, --Identify techniques that prevent, decrease pain and improve coping mechanism i.e. relaxation techniques, biofeedback, TV or other diversions, --Patient's subjective perception of discomfort decreases as documented by pain scale or objective indicators such as grimacing, are absent or diminished. Intervention: --Implement and document use of alternative non pharmacological interventions i.e. hot/cold pack, massage, biofeedback, relaxation techniques distraction, etc., --Administer medications per order, --Assess pain characteristics and probable cause(s) i.e. intensity, location, pain level on scale 1-10.(Nursing,Physicians), --Monitor need for and evaluate patient's response to pain medication Q2hr.(Nursing,Physicians), --Provide for patient safety. (Nursing, Physicians) Care plan status: Continued Progress toward goals documented continuously through progress notes Patient education: --Normal function and disease process., --Treatment regimen-purpose and effect including: Diet, medications, activity, risk factors, and significant symptoms. NURSING DIAGNOSIS: Alterations in bowel elimination: Constipation Goals: *Prior to discharge, patient will: --Will be free of symptom of malabsorbtion evidenced by soft-semisoft stool. --Maintain adequate fluid intake cc --Verbalize understanding of instructions given on prevention of Constipation --Experience decreased number of episodes of Constipation and flatus and/or cramping --Have regular soft-formed stool Interventions:--Identify with patient his/her usual bowel elimination habits.(MD MELANY), --Assess for abdominal distention, bowel sound as indicated.(MD MELANY), --Monitor effectiveness of medications.(NSG), --Record intake and output accurately to ensure correct fluid replacement.(Nursing), --Allow the patient privacy during defecation and establish a regular time for elimination, usually 30-60 minutes after each. Care plan status: Continued Progress toward goals documented continuously through progress notes Patient Education (Nursing, SWS, PT/OT, Smoke Control Supervisor, Automobile Lights Assembler, & Physician) Instruct as to:--Discuss dietary compliance in treatment of malabsorbtive disorder., --Instruct patient not to expect to have a bowel movement every day., --Instruct patient to avoid chronic laxative use., --Teach patient not to ignore the stimulus to defecate. NURSING DIAGNOSIS: Knowledge Deficit Goal: *Prior to discharge, patient will:--Verbalize understanding of disease/treatment plan. Interventions: --Assess patient's ability and readiness to learn., --Involve family/significant other in learning process., --Support and encourage initial/ongoing attempts at change., --Identify strategies and resources for behavior change. Care plan status: Continued Progress toward goals documented continuously through progress notes Patient Education Instruct about:--Disease process., --Health resources., --Treatment regimen. /madalyn/ ABILIO CARTER RN ADN REGISTERED NURSE Signed: 07/20/2024 02:55 ABILIO CARTER [facility] Jul 19, 2024 11:13 PM NURSING NOTE: LOCAL TITLE: [facility] PROGRESS NOTE STL STANDARD TITLE: NURSING NOTE DATE OF NOTE: JUL 19, 2024@23:13 ENTRY DATE: JUL 19, 2024@23:13:28 AUTHOR: ABILIO CARTER EXP COSIGNER: URGENCY: STATUS: COMPLETED [facility] PROGRESS NOTE STL Has ADDENDA Around 2100 Pt in bed complain of constipation,per pt report she had a small bowel movement earlier. MD at the bedside aware that patient refused miralax.Pt refused enema at this time. Pt complain of pain given pain med as ordered. Pt is currently in bed resting comfortable,no signs and symptoms of pain or any distress noted. Call light within reach, continue to monitor. /angelika WALKER REGISTERED NURSE Signed: 07/19/2024 23:19 07/20/2024 ADDENDUM STATUS: COMPLETED Pt report that she had a large bowel movement. Pain is tolerable at this time, no painmed needed.Pt is currently in bed on her right side, with call light within reach, continue to monitor. /angelika WALKER REGISTERED NURSE Signed: 07/20/2024 00:56 07/20/2024 ADDENDUM STATUS: COMPLETED Pt reports multiple bowel movement since midnight. Complain of pain this morning, given pain med as ordered.Pt is currently in bed eating her breakfast.Call light within reach, continue to monitor. /angelika WALKER REGISTERED NURSE Signed: 07/20/2024 06:52 ABILIO CARTER [facility] Jul 19, 2024 11:12 PM NURSING INPATIENT NOTE: LOCAL TITLE: [facility] PATIENT SAFETY CHECK STL STANDARD TITLE: NURSING INPATIENT NOTE DATE OF NOTE: JUL 19, 2024@23:12 ENTRY DATE: JUL 19, 2024@23:13:02 AUTHOR: ABILIO CARTER EXP COSIGNER: URGENCY: STATUS: COMPLETED BEDSIDE SAFETY CHECK STL A visual sweep of the patient's room for any physical or environmental safety concerns was completed and education provided to patient regarding their personal safety concerns. Comment: Patient in bed resting comfortable,RR even and nonlabored no signs and symptoms of pain or any distress noted. Call light within reach, continue to monitor. /angelika WALKER REGISTERED NURSE Signed: 07/19/2024 23:13 ABILIO CARTER [facility] Jul 19, 2024 09:38 PM NURSING INPATIENT NOTE: LOCAL TITLE: [facility] NURSING FREQUENT DOCUMENTATION STANDARD TITLE: NURSING INPATIENT NOTE DATE OF NOTE: JUL 19, 2024@21:38 ENTRY DATE: JUL 19, 2024@21:38:25 AUTHOR: ABILIO CARTER EXP COSIGNER: URGENCY: STATUS: COMPLETED Version 2.4 Charting in accordance with [facility] [place] [facility] [place] STANDARD (INAES) ACUTE INPATIENT/REHABILITATION NURSING ADMISSION SCREENING, ASSESSMENT, AND STANDARDS OF CARE ==== NATIONAL EARLY WARNING SCORE (NEWS) ==== The following vital measurements were used to complete the NEWS. Measurement DT TEMP PULSE RESP BP POx F(C) (L/MIN)(%) 07/19/2024 21:37 99.1(37.3) 91 18 121/73 98 The NEWS total is 0. 1. Temperature (C/F): Score = 0 36.1 - 38.0 C (96.9 - 100.4 F) 2. Pulse: Score = 0 51-90 3. Respirations: Score = 0 12-20 4. Blood Pressure (Only Systolic BP, mmHg): Score = 0 111-219 5. Pulse Oximetry: Score = 0 96% or greater 6. Supplemental oxygen in use: Score = 0 No 7. AVPU: Score = 0 Alert /es/ ABILIO CARTER RN ADN REGISTERED NURSE Signed: 07/19/2024 21:39 ABILIO CARTER [facility] Jul 19, 2024 09:20 PM NURSING NOTE: LOCAL TITLE: [facility] SKIN INSPECTION/ASSESSMENT STANDARD TITLE: NURSING NOTE DATE OF NOTE: JUL 19, 2024@21:20 ENTRY DATE: JUL 19, 2024@23:11:12 AUTHOR: ABILIO CARTER EXP COSIGNER: URGENCY: STATUS: COMPLETED Assessment Type: SKIN REINSPECTION/REASSESSMENT SKIN INSPECTION: Skin Color: Usual for ethnicity Skin Temperature: Warm Skin Moisture: Normal Skin Turgor: Elastic (normal/immediate) Hugo Skin Assessment: The patient's Hugo Scale Score is 21. The patient is considered not at risk for development of pressure ulcers/injuries. Sensory perception -- ability to respond meaningfully to pressure-related discomfort No impairment. Moisture -- degree to which skin is exposed to moisture Rarely moist. Activity -- ability to change and control body position Walks occasionally. Mobility -- ability to change and control body position No limitation. Nutrition -- usual food intake patterns Adequate. Friction and shear No apparent problem. INTERVENTIONS: The pressure injury interventions were not needed - patient/resident is not at risk. RISK FACTORS THAT INCREASE RISK FOR DEVELOPING PRESSURE INJURIES The patient/resident does not have any additional risk factors. SKIN INTEGRITY: Intact /madalyn/ ABILIO CARTER RN ADN REGISTERED NURSE Signed: 07/19/2024 23:12 ABILIO CARTER [facility] Jul 19, 2024 09:20 PM NURSING INPATIENT NOTE: LOCAL TITLE: [facility] ACUTE INPATIENT NSG SHIFT ASSESSMENT STANDARD TITLE: NURSING INPATIENT NOTE DATE OF NOTE: JUL 19, 2024@21:20 ENTRY DATE: JUL 19, 2024@23:05:37 AUTHOR: ABILIO CARTER EXP COSIGNER: URGENCY: STATUS: COMPLETED Version 2.2 Charting in accordance with [facility] [place] [facility] [place] STANDARD (INAES) ACUTE INPATIENT/REHABILITATION NURSING ADMISSION SCREENING, ASSESSMENT, AND STANDARDS OF CARE ==== ASSESSMENT ==== ==== HANDOFF ==== Safety check completed ==== PAIN ASSESSMENT ==== Patient's acceptable pain goal: 0 No pain Are you currently experiencing pain? Yes - DVPRS scale used to assess Location: left hip [employer] Pain Rating Scale (DVPRS): 5 Interrupts some activities Pain Score: 0 ==== CRISTOBAL FALL SCALE & TIPS PROGRAM ==== Cristobal Fall Scale: The Cristobal Fall scale was performed and score was 85. This is indicative of high risk for falls. History of falling: immediate or within 3 months? Yes Secondary diagnosis: Yes Ambulatory aid: Crutches/cane(s)/walker Intravenous therapy/Heparin lock: Yes Gait/Transferring: Weakness Mental Status: Oriented to own ability/knows own limitations Fall Tailoring Interventions for Patient Safety (TIPS) Fall TIPS initiated with patient: Yes Interventions: Walking Aids: Walker Assistance out of bed: Call for assistance before getting out of bed Safe patient handling device necessary Fall TIPS reviewed with patient: Yes Interventions: Walking Aids: Walker Assistance out of bed: Call for assistance before getting out of bed Safe patient handling device necessary ==== ENVIRONMENTAL SAFETY MANAGEMENT ==== Implemented safety standards of care: -[place] to unit & environment -Adequate room lighting -Bed in low and locked position -Call light within reach -Personal items within reach -Traffic path in room free of clutter -Non-slip footwear -Upper/half length side rails up for bed mobility -Sensory aids within reach -Encourage patient to utilize sensory support Additional safety measures: Alarms: Bed Mobility support items readily available ==== NEUROLOGICAL ==== Neurological Orientation: Oriented x4 Level of Consciousness (AVPU): Alert = Appears aware of and responsive to the environment on their own. Follows commands, opens eyes spontaneously, and tracks objects. Affect/behavior: Cooperative Calm [place] Agitation Sedation Scale (RASS): 0 Alert and calm ==== NEUROMUSCULAR/NEUROVASCULAR EXTREMITIES ASSESSMENT ==== Strength: Riding Teacher Bilateral: Moderate Upper Extremity Bilateral: Full strength Lower Extremity Bilateral: Full strength Sensation: Upper Extremity Sensation Bilateral: Intact Lower Extremity Sensation Bilateral: Intact Temperature: Upper Extremity Temperature Bilateral: Warm Lower Extremity Temperature Bilateral: Warm ==== CARDIOVASCULAR ==== Capillary Refill: All 4 extremities, less than or equal to 3 seconds. Peripheral Pulses: R Radial: 3+ Normal L Radial: 3+ Normal R Dorsalis Pedis: 3+ Normal L Dorsalis Pedis: 3+ Normal R Posterior Tibial: L Posterior Tibial: R Popliteal: L Popliteal: Edema: Present Dependent Location: keft leg Cardiovascular - Embolism Prevention: Comment: lovenox ==== RESPIRATORY ==== Respirations: Unlabored Pattern: Regular Breath Sounds Auscultated: Right Upper Lobe: Clear Left Upper Lobe: Clear Right Middle Lobe: Right Lower Lobe: Left Lower Lobe: ==== GASTROINTESTINAL ==== Elimination: Continent Abdominal Description: Protuberant (central obesity) Palpation: Soft, Non-tender Bowel Sounds: RUQ: Active LUQ: Active RLQ: Active LLQ: Active ==== GENITOURINARY ==== Elimination: Continent Color/Characteristic: Diane === INTEGUMENTARY/SKIN/WOUND - (INCLUDING HUGO) SEE NOTE: VAAES SKIN INPECTION/ASSESSMENT === ==== ACTIVITIES OF DAILY LIVING ==== Hygiene ADLs: Hand Hygiene: Performed post toileting Performed pre meals/snacks Oral Care: Non-ventilator patient: Patient teeth brushed: Independently ==== MOBILITY ==== Mobility Status: Independent: Able to stand and step without staff assistance Equipment utilized: Walker Gait: Steady ==== IV LINES ==== Peripheral IV: Line #1: Assessment: Location: Right, Hand Gauge: 20 Dressing Condition: Clean, dry, intact Transparent dressing Site Condition: No redness, swelling, pain Line Status: Patent/infusing Capped Flushed ==== PSYCHOSOCIAL ==== Type of Emotional Support Provided: 1:1 discussion, Hospitalization discussion, Treatment discussion, Ventilation of feelings encouraged Additional Comment: Continue to monitor patient and report if any changes noted. Monitor labs and vitals. Continue to give pain med as ordered for comfort. /madalyn/ ABILIO EVANGELISTAN REGISTERED NURSE Signed: 07/19/2024 23:09 ABILIO CARTER [facility] Jul 19, 2024 07:04 PM NURSING NOTE: LOCAL TITLE: [facility] PROGRESS NOTE STL STANDARD TITLE: NURSING NOTE DATE OF NOTE: JUL 19, 2024@19:04 ENTRY DATE: JUL 19, 2024@19:04:41 AUTHOR: BRODERICK WHITE EXP COSIGNER: URGENCY: STATUS: COMPLETED [facility] PROGRESS NOTE STL Has ADDENDA [place] refused miralax at 10am med pass. Biscodyl PRN was offered and declined. also refused tap water enema x1. med team 2B notified. Will continue to monitor. /madalyn/ BRODERICK DENTON RN REGISTERED NURSE Signed: 07/19/2024 19:07 07/19/2024 ADDENDUM STATUS: COMPLETED At 1920, vet c/o nausea and abdo discomfort. On exam, miguel had some minor abdo discomfort and guarding in RUQ. Rosalindat stated that she didn't report the abdo discomfort because her son was around and she didn't want to worry him. miguel was concerned and now wants med team to see her. med team 2B notified and will come to bedside. Will continue to monitor. /madalyn/ BRODERICK DENTON RN REGISTERED NURSE Signed: 07/19/2024 19:41 BRODERICK WHITE [facility] Jul 19, 2024 06:44 PM NURSING INPATIENT NOTE: LOCAL TITLE: [facility] ACUTE INPATIENT NSG SHIFT ASSESSMENT STANDARD TITLE: NURSING INPATIENT NOTE DATE OF NOTE: JUL 19, 2024@18:44 ENTRY DATE: JUL 19, 2024@18:44:35 AUTHOR: BRODERICK WHITE EXP COSIGNER: URGENCY: STATUS: COMPLETED Version 2.2 Charting in accordance with IN APPR[place]ED [place] STANDARD (VAAES) ACUTE INPATIENT/REHABILITATION NURSING ADMISSION SCREENING, ASSESSMENT, AND STANDARDS OF CARE ==== ASSESSMENT ==== ==== HANDOFF ==== Bedside report and handoff completed Safety check completed ==== PAIN ASSESSMENT ==== Patient's acceptable pain goal: 0 No pain Are you currently experiencing pain? No: Pain Score: 0 ==== CRISTOBAL FALL SCALE & TIPS PROGRAM ==== Cristobal Fall Scale: The Cristobal Fall scale was performed and score was 35. This is indicative of moderate risk for falls. History of falling: immediate or within 3 months? No Secondary diagnosis: Yes Ambulatory aid: None/bedrest/nurse assist Intravenous therapy/Heparin lock: Yes Gait/Transferring: Normal/bed rest/immobile Mental Status: Oriented to own ability/knows own limitations Fall Tailoring Interventions for Patient Safety (TIPS) Fall TIPS initiated with patient: Yes Interventions: Communicate recent fall or risk of harm Fall TIPS reviewed with patient: Yes Interventions: Communicate recent fall or risk of harm ==== ENVIRONMENTAL SAFETY MANAGEMENT ==== Implemented safety standards of care: -[place] to unit & environment -Adequate room lighting -Bed in low and locked position -Call light within reach -Personal items within reach -Traffic path in room free of clutter -Non-slip footwear -Upper/half length side rails up for bed mobility -Sensory aids within reach -Encourage patient to utilize sensory support Additional safety measures: Increased frequency of rounding ==== NEUROLOGICAL ==== Neurological Orientation: Oriented x4 Level of Consciousness (AVPU): Alert = Appears aware of and responsive to the environment on their own. Follows commands, opens eyes spontaneously, and tracks objects. Affect/behavior: Cooperative Calm ==== NEUROMUSCULAR/NEUROVASCULAR EXTREMITIES ASSESSMENT ==== Strength: Riding Teacher Bilateral: Strong Upper Extremity Bilateral: Full strength Lower Extremity Bilateral: Full strength Sensation: Upper Extremity Sensation Bilateral: Intact Lower Extremity Sensation Bilateral: Intact Temperature: Upper Extremity Temperature Bilateral: Warm Lower Extremity Temperature Bilateral: Warm ==== CARDIOVASCULAR ==== Heart Sounds: Normal (S1S2) Capillary Refill: All 4 extremities, less than or equal to 3 seconds. Peripheral Pulses: All 4 extremities, 3+ normal. Edema: None ==== RESPIRATORY ==== Respirations: Unlabored Pattern: Regular Breath Sounds Auscultated: Anterior and posterior Left Upper Lobe: Clear Right Upper Lobe: Clear Right Middle Lobe: Clear Left Lower Lobe: Clear Right Lower Lobe: Clear ==== GASTROINTESTINAL ==== Bowel movement reported by patient-unwitnessed Elimination: Continent Abdominal Description: Rounded Palpation: Soft Bowel Sounds: RUQ: Active LUQ: Active RLQ: Active LLQ: Active ==== GENITOURINARY ==== Elimination: Continent === INTEGUMENTARY/SKIN/WOUND - (INCLUDING HUGO) SEE NOTE: VAAES SKIN INPECTION/ASSESSMENT === ==== MOBILITY ==== Mobility Status: Independent: Able to stand and step without staff assistance Gait: Steady ==== IV LINES ==== Peripheral IV: Line #1: Assessment: Location: Right, Hand Gauge: 20 Dressing Condition: Clean, dry, intact Site Condition: No redness, swelling, pain Line Status: Patent/infusing ==== PSYCHOSOCIAL ==== Type of Emotional Support Provided: 1:1 discussion, Anticipated outcomes, Ventilation of feelings encouraged /madalyn/ BRODERICK DENTON RN REGISTERED NURSE Signed: 07/19/2024 18:53 BRODERICK WHITE [facility] Jul 19, 2024 06:39 PM NURSING NOTE: LOCAL TITLE: [facility] SKIN INSPECTION/ASSESSMENT STANDARD TITLE: NURSING NOTE DATE OF NOTE: JUL 19, 2024@18:39 ENTRY DATE: JUL 19, 2024@18:39:36 AUTHOR: BRODERICK WHITE EXP COSIGNER: URGENCY: STATUS: COMPLETED Assessment Type: SKIN REINSPECTION/REASSESSMENT SKIN INSPECTION: Skin Color: Usual for ethnicity Skin Temperature: Warm Skin Moisture: Normal Skin Turgor: Elastic (normal/immediate) Hugo Skin Assessment: The patient's Hugo Scale Score is 21. The patient is considered not at risk for development of pressure ulcers/injuries. Sensory perception -- ability to respond meaningfully to pressure-related discomfort No impairment. Moisture -- degree to which skin is exposed to moisture Rarely moist. Activity -- ability to change and control body position Walks occasionally. Mobility -- ability to change and control body position Slightly limited. Nutrition -- usual food intake patterns Excellent. Friction and shear No apparent problem. INTERVENTIONS: The pressure injury interventions were not needed - patient/resident is not at risk. RISK FACTORS THAT INCREASE RISK FOR DEVELOPING PRESSURE INJURIES The patient/resident does not have any additional risk factors. SKIN ALTERATIONS: Pressure Ulcer/Injury Documentation from the past year: No data available SKIN ALTERATIONS: Wound Documentation from the past year: No data available for: Skin Integrity - Wound Skin Integrity - Wound Second Skin Integrity - Wound Third Skin Integrity - Wound Fourth Skin Integrity - Wound Fifth Skin Integrity - Wound Additional SKIN INTEGRITY: Intact /es/ BRODERICK DENTON RN REGISTERED NURSE Signed: 07/19/2024 18:44 BRODERICK WHITE [facility] Jul 19, 2024 06:36 PM NURSING INPATIENT NOTE: LOCAL TITLE: [facility] NURSING FREQUENT DOCUMENTATION STANDARD TITLE: NURSING INPATIENT NOTE DATE OF NOTE: JUL 19, 2024@18:36 ENTRY DATE: JUL 19, 2024@18:36:58 AUTHOR: BRODERICK WHITE EXP COSIGNER: URGENCY: STATUS: COMPLETED Version 2.4 Charting in accordance with IN APPROVED [place] STANDARD (INAES) ACUTE INPATIENT/REHABILITATION NURSING ADMISSION SCREENING, ASSESSMENT, AND STANDARDS OF CARE ==== NATIONAL EARLY WARNING SCORE (NEWS) ==== The following vital measurements were used to complete the NEWS. Measurement DT TEMP PULSE RESP BP POx F(C) (L/MIN)(%) 07/19/2024 17:00 98.5(36.9) 57 20 108/74 97 The NEWS total is 1. 1. Temperature (C/F): Score = 0 36.1 - 38.0 C (96.9 - 100.4 F) 2. Pulse: Score = 0 51-90 3. Respirations: Score = 0 12-20 4. Blood Pressure (Only Systolic BP, mmHg): Score = 1 101-110 5. Pulse Oximetry: Score = 0 96% or greater 6. Supplemental oxygen in use: Score = 0 No 7. AVPU: Score = 0 Alert Patient Status: Remains on unit /mdaalyn/ BRODERICK DENTON RN REGISTERED NURSE Signed: 07/19/2024 18:38 BRODERICK WHITE [facility] Jul 19, 2024 06:32 PM NURSING INPATIENT NOTE: LOCAL TITLE: [facility] NURSING FREQUENT DOCUMENTATION STANDARD TITLE: NURSING INPATIENT NOTE DATE OF NOTE: JUL 19, 2024@18:32 ENTRY DATE: JUL 19, 2024@18:32:24 AUTHOR: GABY NAVARRO COSIGNER: URGENCY: STATUS: COMPLETED Version 2.4 Charting in accordance with IN APPROVED [place] STANDARD (INAES) ACUTE INPATIENT/REHABILITATION NURSING ADMISSION SCREENING, ASSESSMENT, AND STANDARDS OF CARE ===== ORAL INTAKE (PERCENTAGE OF MEAL EATEN) ===== Dinner: 51% - 75% /es/ GABY NAVARRO DIP BRAZIER GIS SOFTWARE DEVELOPER Signed: 07/19/2024 18:32 GABY NAVARRO [facility] Jul 19, 2024 12:10 PM NURSING INPATIENT NOTE: LOCAL TITLE: [facility] NURSING FREQUENT DOCUMENTATION STANDARD TITLE: NURSING INPATIENT NOTE DATE OF NOTE: JUL 19, 2024@12:10 ENTRY DATE: JUL 19, 2024@12:10:26 AUTHOR: GABY NAVARRO EXP COSIGNER: URGENCY: STATUS: COMPLETED Version 2.4 Charting in accordance with [facility] [place] [facility] [place] STANDARD (INAES) ACUTE INPATIENT/REHABILITATION NURSING ADMISSION SCREENING, ASSESSMENT, AND STANDARDS OF CARE ==== ACTIVITIES OF DAILY LIVING ==== Hygiene ADLs: Dressing: Upper Body: Independent Lower Body: Independent Eating: Independent Foot Care: Inspection Hand Hygiene: Performed post toileting Performed pre meals/snacks Oral Care: Non-ventilator patient: Patient teeth brushed: Independently Pericare: Soap and water Independent Personal Care: Bath Independent Toileting: Independent ===== ACTIVITY/MOBILIZATION ===== Mobility Status: Independent: Equipment utilized: Walker Dorantes Duffy - Highest Level of Mobility achieved this shift: ==== ENVIRONMENTAL SAFETY MANAGEMENT ==== Implemented safety standards of care: -[place] to unit & environment -Adequate room lighting -Bed in low and locked position -Call light within reach -Personal items within reach -Traffic path in room free of clutter -Non-slip footwear -Upper/half length side rails up for bed mobility -Sensory aids within reach -Encourage patient to utilize sensory support ==== GASTROINTESTINAL ==== Elimination: ==== GENITOURINARY ==== Elimination: Continent ===== ORAL INTAKE (PERCENTAGE OF MEAL EATEN) ===== Breakfast: intake not observed /es/ GABY NAVARRO DIP BRAZIER GIS SOFTWARE DEVELOPER Signed: 07/19/2024 12:11 GABY NAVARRO [facility] Jul 19, 2024 11:12 AM INTERNAL MEDICINE INPATIENT NOTE: LOCAL TITLE: MEDICINE GENERAL INPATIENT NOTE STANDARD TITLE: INTERNAL MEDICINE INPATIENT NOTE DATE OF NOTE: JUL 19, 2024@11:12 ENTRY DATE: JUL 19, 2024@11:12:39 AUTHOR: MINERVA POWELL EXP COSIGNER: ELISABETH VERDUGO URGENCY: STATUS: COMPLETED INTERNAL MEDICINE PROGRESS NOTE MEDICINE TEAM 2B Last Admission: 07/16/24 11:33:02 pm Admit Dx: INTRACTABLE SCIATICA. Interval History: - NAEON - Pain is under better control used 10mg oxy 3 times since 07/18 at noon - Not using CPAP overnight due to discomfort from mask, RT arranging for nasal pillows in the outpatient setting - Discussing with psychiatry about inpatient initiation of prazosoin Hospital Course: 48-year-old female with PMH of fibromyalgia, chronic pain syndrome, RLS, chronic left leg pain presenting with acute on chronic left leg pain of unknown origin. Neurology and psychiatry consulted for leg pain as both have evaluated patient in the outpatient setting. Neurology evalauted patient and recommending no further workup at this time, they do not suspect organic cause of pain. After discussing with psychiatry patient not interested in titrating psychotropics inpatient. Pain controlled with oxycodone and titrated as tolerable. Found to be iron deficient and repleted with IV iron to help with RLS symptoms. Active Inpatient Medications: 1) OXYCODONE (IMMEDIATE RELEASE) UD TAB PO Q8H PRN 5MG 2) ENOXAPARIN INJ SQ QDAILY 40MG/0.4ML 3) LEVOTHYROXINE (SYNTHROID) TAB PO QAMAC 175MCG 4) ONDANSETRON TAB PO Q6H PRN 4MG 5) TIZANIDINE TAB PO TID PRN 4MG 6) TRAZODONE TAB PO QHS PRN 100MG 7) DULOXETINE CAP,EC PO QDAILY 8) ACETAMINOPHEN TAB PO Q8H 1000MG 9) FOLIC ACID TAB PO QDAILY 1MG 10) LIDOCAINE 5% PATCH TRANSDERMAL QDAILY 2 PATCHES 11) DIPHENHYDRAMINE CAP,ORAL PO QID PRN 25MG 12) PRAMIPEXOLE TAB PO BID 1MG 13) GABAPENTIN (LOWER DOSE) CAP,ORAL PO QHS 100MG 14) BISACODYL (ENTERIC COATED) TAB,EC PO Q12H PRN 10MG 15) GLUCAGON INJ IM PRN 1MG/1VIAL 16) GLUCOSE TAB,CHEWABLE PO PRN 16GM 17) DEXTROSE 50% INJ,SOLN IVP PRN 50 ML 18) POLYETHYLENE GLYCOL 3350 PKT POWDER,ORAL PO BID 1 PACKET 19) SENNOSIDES (OTC) TAB PO BID 17.2MG Life Sustaining Treatment Orders Vital Signs: Pulse: 60 (07/19/2024 04:16) BP: 115/76 (07/19/2024 04:16) RESP: 18 (07/19/2024 04:16) Pain: 1 (07/19/2024 07:36) Tmax: 97.8 F [36.6 C] (07/19/2024 04:16) Pulse Oximetry: Weight: 192.5 lb [87.32 kg] (2024 06:04) PHYSICAL EXAM: General: pleasant female, calm and rested, NAD HEENT: oral mucosa moist Lungs: CTAB CVS: RRR Abdomen: Nondistended, nontender Ext: No lower extremity edema, RLE exam normal, LLE trembling with exertion, 5/5 strength, tender to light and deep touch mostly in areas of posterior lateral calf, medial knee (patellar region), left buttocks Neuro: AOx4, no focal deficits noted Recent Labs: BASIC METABOLIC PANEL: SODIUM 143 mEq/L 07/19/2024 06:00 POTASSIUM 3.5 mEq/L 07/19/2024 06:00 CHLORIDE 108 H mEq/L 07/19/2024 06:00 UREA NITROGEN 19.2 mg/dL 07/19/2024 06:00 CREATININE 0.88 mg/dL 07/19/2024 06:00 CALCIUM 10.0 mg/dL 07/19/2024 06:00 CARBON DIOXIDE 26 mEq/L 07/19/2024 06:00 GLUCOSE 52 L mg/dL 07/19/2024 06:00 EGFR (CKD-EPI 2020) 81.0 07/19/2024 06:00 WBC: 4.6 10*3/uL (07/19/24 06:00) HCT: 43.7 % H (07/19/24 06:00) HGB: HGB 14.1 g/dL 07/19/2024 06:00 Plt: PLT 272 10*3/uL 07/19/2024 06:00 CK-MB: ____ TROPONIN I HISTORY: No data available Other Labs and Data: Assessment/Plan: 48-year-old female with PMH of fibromyalgia, chronic pain syndrome, chronic left leg pain, RLS, presenting with acute on chronic left leg pain of unknown origin #Acute on chronic left lower leg pain #hx of chronic left leg sciatica - pain is difficult to localize as is present in 3 distinct areas, present for over 20 years but now acutely worsened - EMG previously negative, MRI lumbar spine in past with possible peroneal nerve injury - DDx: possibly unilateral RLS, also has hx of excercise induced compartment syndrome s/p fasciotomy x2, unclear if has residual neuropathy of sorts contributing, otherwise has fibromyalgia and may have complex chronic pain syndrome with no organic cuase PLAN: - decreasing oxycodone to oxycodone 5mg q8 prn - Bowel regimen with miralax and senna - Tylenol 1000 TID scheduled - PT consult for mobilization - Neurology consulted, appreciate recs - no further w/u, signed off - Psychaitry consulted, appreciate recs - DIscussed with pain management DRUG COORDINATOR Chitra Garcia, rather not prescribe opiates in outpatient setting, could consider a neuro stimulator in the future but will need to be evaluated, setting up 30 day RTC #Acute Constipation - no bowel movement in 5 days - has been largely in bed and on opiate therapy for acute pain PLAN: - Dulcolax q12 - MIralax and senna BID - giving tap water enema x1 per patient preference #Iron deficiency - Tsat low and Ferritin 11 - not tolerated Ferrous sulfate in the past - s/p IV iron repletion this admission PLAN: - Will need repeat testing in outpatient setting #Chronic insomnia #RLS - Home regimen: pramipexole 1.5 BID - documented iron deficiency in the past not corrected due to PLAN: - Vitmain D level pending - Treating iron deficiency as above - Per psych and neurology, reduce pramipexole to 1mg BID for 3 days and then 0.5mg BID for 3 days then can stop - Continue gabepntin 100mg qHS for RLS and neuromodulation for pain control - Continue trazadone 100mg qHS and tizanidine qHS #moderate obstructive sleep apnea - last PSG was 2021, noted to have AHI of 12.9 and PLMs, no CPAP titration study - trialed CPAP at home but could not tolerate due to discomfort PLAN: - RT to assist with providing nasasl pillows mask in outpatient setting - patient not liking masks here inpatient #Depresison #Anxiety with hx of panic attacks #night terrors - Home medications: Duloxetine 90mg qHS PLAN: - Continue duloxetine 90mg qHS - Outpatient psych appointment set for next Monday - Will discuss with psychiatry about inpatient or outpatient initiation of prazosin for night terrors #Obesity with hx Gastric sleeve 05/2023 #Hx of DM #risk of nutrition deficiency - Patient was previously on metformin but it was stopped. - Her most recent A1C was 5.7 05/2024. - Weight loss of 97 lbs over 1 year PLAN: - CTM #B12 Deficiency - B12 192 - has risk factor of bariatric surgery - already getting B12 injections monthly, has hives with oral dose PLAN: - start weekly B12 1000mcg injections for 8 weeks starting today followed by monthly B12 supplementation #Hypothyroidism: TSH 3.7 on admission, will continue home levothyroxine 175mcg daily #Fibromylgia: not on medications specifically for this outpatient Code Status: FULL Diet: Regular DVT ppx: Lovenox Access: PIV Urinary: Spontaneous Dispo/Social: Able to go home has and daughter, barrier is pain control, seems like no real intervention will occur this admission /es/ Minerva Powell MD Resident Physician Signed: 07/19/2024 12:26 /es/ ELISABETH VERDUGO M.D. STAFF PHYSICIAN Cosigned: 07/19/2024 13:37 MINERVA POWELL [facility] Jul 19, 2024 11:07 AM INTERNAL MEDICINE INPATIENT NOTE: LOCAL TITLE: MEDICINE GENERAL INPATIENT NOTE STANDARD TITLE: INTERNAL MEDICINE INPATIENT NOTE DATE OF NOTE: JUL 19, 2024@11:07 ENTRY DATE: JUL 19, 2024@11:07:19 AUTHOR: TIM MADDOX COSIGNER: ELISABETH VERDUGO URGENCY: STATUS: COMPLETED MEDICINE INPATIENT GENERAL NOTE STL 49 year old FEMALE admitted on Jun 23:33 for Last Admission: 07/16/24 11:33:02 pm Admit Dx: INTRACTABLE SCIATICA. Subjective Complaints: endorses moderate but tolerable pain in the left leg, constipation, and nausea Major events over the last day: patient was symptomatically hypoglycemic (BG 51) overnight, likely 2/2 decreased intake. Patient now s/p iron dextran infusion. Active Inpatient Medications: 1) OXYCODONE (IMMEDIATE RELEASE) UD TAB PO Q8H PRN 5MG 2) OXYCODONE (IMMEDIATE RELEASE) UD TAB PO Q8H PRN 10MG 3) ENOXAPARIN INJ SQ QDAILY 40MG/0.4ML 4) LEVOTHYROXINE (SYNTHROID) TAB PO QAMAC 175MCG 5) ONDANSETRON TAB PO Q6H PRN 4MG 6) TIZANIDINE TAB PO TID PRN 4MG 7) TRAZODONE TAB PO QHS PRN 100MG 8) DULOXETINE CAP,EC PO QDAILY 9) ACETAMINOPHEN TAB PO Q8H 1000MG 10) FOLIC ACID TAB PO QDAILY 1MG 11) LIDOCAINE 5% PATCH TRANSDERMAL QDAILY 2 PATCHES 12) DIPHENHYDRAMINE CAP,ORAL PO QID PRN 25MG 13) PRAMIPEXOLE TAB PO BID 1MG 14) GABAPENTIN (LOWER DOSE) CAP,ORAL PO QHS 100MG 15) BISACODYL (ENTERIC COATED) TAB,EC PO Q12H PRN 10MG 16) GLUCAGON INJ IM PRN 1MG/1VIAL 17) GLUCOSE TAB,CHEWABLE PO PRN 16GM 18) DEXTROSE 50% INJ,SOLN IVP PRN 50 ML 19) POLYETHYLENE GLYCOL 3350 PKT POWDER,ORAL PO BID 1 PACKET 20) SENNOSIDES (OTC) TAB PO BID 17.2MG Vital Signs: Pulse: 60 (07/19/2024 04:16) BP:115/76 (07/19/2024 04:16) RESP:18 (07/19/2024 04:16) Pain:1 (07/19/2024 07:36) Tmax: 97.8 Pulse Oximetry: 91-97% Weight: 192.5 lb [87.32 kg] (2024 06:04) Intake/Output: not documented PHYSICAL EXAM: General: well appearing, resting comfortably in bed HEENT: no scleral icterus, no LAD, mucous membranes moist Lungs: clear to ausculation bilaterally CVS: normal S1, S2, RRR, no murmurs rubs or gallops Abdomen: bowel sounds hypoactive, abdomen diffusely tender to palpation, mildly distended Ext: no erythema, swelling, or abnormal warmth of the extremeties, chronic foot drop present on left side Neuro: A&0x4, no focal neurological deficits except the chronic foot drop Skin/ulcers: no ulcers or skin changes present Other: PIV in place Recent Labs: BASIC METABOLIC PANEL: SODIUM 143 mEq/L 07/19/2024 06:00 POTASSIUM 3.5 mEq/L 07/19/2024 06:00 CHLORIDE 108 H mEq/L 07/19/2024 06:00 UREA NITROGEN 19.2 mg/dL 07/19/2024 06:00 CREATININE 0.88 mg/dL 07/19/2024 06:00 CALCIUM 10.0 mg/dL 07/19/2024 06:00 CARBON DIOXIDE 26 mEq/L 07/19/2024 06:00 GLUCOSE 52 L mg/dL 07/19/2024 06:00 EGFR (CKD-EPI 2020) 81.0 07/19/2024 06:00 WBC: 4.6 10*3/uL (07/19/24 06:00) HCT: 43.7 % H (07/19/24 06:00) HGB: HGB 14.1 g/dL 07/19/2024 06:00 Plt: PLT 272 10*3/uL 07/19/2024 06:00 CK-MB: ____ TROPONIN I HISTORY: No data available Other Labs and Data: none Assessment/Plan: Assessment/Plan: 48-year-old female with PMH of fibromyalgia, chronic pain syndrome, chronic left leg pain presenting with acute on chronic left leg pain with unclear etiology #Acute on chronic left lower leg pain #hx of chronic left leg sciatica - pain is difficult to localize as is present in 3 distinct areas (posterior calf, knee, and lateral hip), present for over 20 years but now acutely worsened with different character (feels like it's been hit with a baseball bat) - EMG previously negative, MRI lumbar spine in past with possible peroneal nerve injury - Has hx of compartment syndrome s/p fasciotomy x2, unclear if has residual neuropathy of sorts contributing, otherwise has fibromyalgia and may have complex chronic pain syndrome with no organic cause - labs show BOBBY (ferritin 11.54, t sat 11%), B12 deficient at 194, folate and vitamin D WNL, B1 still pending - per psychiatry recs - decreased pramipexole to 1 mg BID for 3 days and add gabapentin 100 mg BID, then further decrease pramipexole to 0.5 mg BID for 3 more days before discontinuing PLAN: - Oxycodone initially at q4prn, now will do 5mg q8 prn for pain - Tylenol 1000 TID scheduled - PT consulted for mobilization - Neurology consulted, recommending no further workup and signed off - continue gabapentin 100 mg BID #insomnia #RLS #PTSD induced nightmares - Home regimen: pramipexole 1.5 BID - has discussed trialing prazosin for nightmares in the past, declined previously d/t concern for blood pressure drops - patient willing to try while inpatient after discussion - s/p iron dextran infusion on 07/18 for BOBBY PLAN: - Per psych and neurology, reduce pramipexole to 1mg BID for 3 days and then 0.5mg BID for 3 days then can stop - Initiate gabepntin 100mg qHS for RLS and neuromodulation for pain control - Continue trazadone 100mg qHS and tizanidine qHS - Patient agreed to try CPAP with nasal pillow once home (not available inpatient) - If psychiatry on board, trial prazosin at night for PTSD associated nightmares #constipation - patient has not had a BM in 5 days - patient took 3 doses of dulcolax prior to admission - dulcolax and miralax ordered BID yesterday - likely contributing to food intolerance and nausea PLAN - patient agreed to try enema today - continue dulcolax and miralax BID #Depresison #Anxiety with hx of panic attacks - Home medications: Duloxetine 90mg qHS PLAN: - Continue duloxetine 90mg qHS - Outpatient psych appointment set for next Monday #Obesity with hx Gastric sleeve 05/2023 #Hx of DM - Patient was previously on metformin but it was stopped. - Her most recent A1C was 5.7 05/2024. - Weight loss of 97 lbs over 1 year - patient takes 1000 mg B12 injections monthy at home, but missed this month - vitamin D normal, folate borderline low (8.8) B1 still pending - B12 deficient at 192, however patient has a documented allergy to B12 supplementation - iron panel indicative of BOBBY PLAN: - continue B12 1000mg injections weekly for 8 weeks, then monthy after that - nutrition consult placed to optimize diet #Hypothyroidism: TSH 3.7 on admission, will continue home levothyroxine 175mcg daily #Fibromylgia: not on medications specifically for this outpatient [place]: No Lines No VTE prophylaxis: other none Life Sustaining Treatment Orders Disposition: Living arrangements prior to admission: living at home with Anticipate discharge date:Jun Anticipate discharge to: Prior Living Situation /madalyn/ TIM MADDOX Medical Student Signed: 07/19/2024 11:20 /madalyn/ ELISABETH VERDUGO M.D. STAFF PHYSICIAN Cosigned: 07/19/2024 11:55 TIM MADDOX [facility] Jul 19, 2024 09:49 AM ADMINISTRATIVE NOTE: LOCAL TITLE: SCHEDULING NOTE [facility] STANDARD TITLE: ADMINISTRATIVE NOTE DATE OF NOTE: JUL 19, 2024@09:49 ENTRY DATE: JUL 19, 2024@09:49:11 AUTHOR: WINNIE VILLAR EXP COSIGNER: URGENCY: STATUS: COMPLETED Minimum Scheduling attempts to contact the [facility] have been made. RTC/Appt/Consult request will be discontinued after 14 days. Clinic: [facility] TEAM P3 [place]: Jul First Call to [facility] - unsuccessful scheduling: Jun Certified Letter Mailed: Jun Discontinue date (14 calendar days after letter is mailed): Jul ADDITIONAL RESULTS FROM SCHEDULING ATTEMPTS: /madalyn/ WINNIE VILLAR Advanced medical accounts receivable specialist Signed: 07/19/2024 09:49 WINNIE VILLAR [facility] Jul 19, 2024 09:49 AM PHYSICIAN LETTERS: LOCAL TITLE: NO CONTACT LETTER [facility] STANDARD TITLE: PHYSICIAN LETTERS DATE OF NOTE: JUL 19, 2024@09:49 ENTRY DATE: JUL 19, 2024@09:49:53 AUTHOR: WINNIE VILLAR EXP COSIGNER: URGENCY: STATUS: COMPLETED [facility] [address] [place] [address] JUL 19, 2024 REBECA NUNES [address] [place] [address] Dear Rebeca Nunes, Thank you for choosing the [facility] as your primary choice for health care. As a partner in your health care, we are attempting to contact you because we have been unsuccessful in reaching you by phone to schedule your clinic appointment. Please call us at [phone], [phone] to speak to us regarding making an appointment in the [facility]. Your good health is important to us. Please contact us within 2 weeks from the date of this letter. If we do not hear from you, we will notify your referring provider and a new referral will be required to schedule an appointment. IMPORTANT: Due to COVID-19 we have greatly expanded our telehealth options, please contact the clinic to inquire about scheduling. Sincerely, WINNIE VILLAR Advanced medical accounts receivable specialist REBECA NUNES AMANDA D [facility] Jul 19, 2024 04:00 AM NURSING INPATIENT NOTE: LOCAL TITLE: YANNA PATIENT SAFETY CHECK [facility] STANDARD TITLE: NURSING INPATIENT NOTE DATE OF NOTE: JUL 19, 2024@04:00 ENTRY DATE: JUL 19, 2024@07:37:49 AUTHOR: ABILIO CARTER EXP COSIGNER: URGENCY: STATUS: COMPLETED BEDSIDE SAFETY CHECK ST[facility] A visual sweep of the patient's room for any physical or environmental safety concerns was completed and education provided to patient regarding their personal safety concerns. Comment: pt awake given pain med as ordered.Sitting in the bed with call light within reach. Continue to monitor. /angelika WALKER REGISTERED NURSE Signed: 07/19/2024 07:38 ABILIO CARTER [facility] Jul 19, 2024 02:42 AM NURSING NOTE: LOCAL TITLE: YANNA PROGRESS NOTE [facility] STANDARD TITLE: NURSING NOTE DATE OF NOTE: JUL 19, 2024@02:42 ENTRY DATE: JUL 19, 2024@02:42:04 AUTHOR: ABILIO CARTER EXP COSIGNER: URGENCY: STATUS: COMPLETED YANNA PROGRESS NOTE [facility] Has ADDENDA Pt is currently in bed resting comfortable, no signs and symptoms of pain or any distress noted. Call light within reach, continue to monitor. /angelika EVANGELISTAN REGISTERED NURSE Signed: 07/19/2024 02:43 07/19/2024 ADDENDUM STATUS: COMPLETED Pt woke up complaining of pain to left leg, given pain med as ordered. Compplain of constipation, given dulcolax as ordered. Vitals taken at this time. Pt is currently in bed with call light within reach, continue to monitor. /angelika WALKER REGISTERED NURSE Signed: 07/19/2024 04:18 ABILIO CARTER [facility] 2024 11:15 PM NURSING INPATIENT NOTE: LOCAL TITLE: YANNA PATIENT SAFETY CHECK [facility] STANDARD TITLE: NURSING INPATIENT NOTE DATE OF NOTE: 2024@23:15 ENTRY DATE: JUL 19, 2024@01:03:10 AUTHOR: ABILIO CARTER EXP COSIGNER: URGENCY: STATUS: COMPLETED BEDSIDE SAFETY CHECK ST[facility] A visual sweep of the patient's room for any physical or environmental safety concerns was completed and education provided to patient regarding their personal safety concerns. Comment: Patient in bed resting comfortable,RR even and nonlabored no signs and symptoms of pain or any distress noted. Call light within reach, continue to monitor. /angelika EVANGELISTAN REGISTERED NURSE Signed: 07/19/2024 01:03 EMMAABILIO [facility] 2024 10:55 PM NURSING INPATIENT NOTE: LOCAL TITLE: [facility] NURSING FREQUENT DOCUMENTATION STANDARD TITLE: NURSING INPATIENT NOTE DATE OF NOTE: 2024@22:55 ENTRY DATE: 2024@22:55:45 AUTHOR: ABILIO CARTER EXP COSIGNER: URGENCY: STATUS: COMPLETED Version 2.4 Charting in accordance with [facility] [place] [facility] [place] STANDARD (INAES) ACUTE INPATIENT/REHABILITATION NURSING ADMISSION SCREENING, ASSESSMENT, AND STANDARDS OF CARE ==== NATIONAL EARLY WARNING SCORE (NEWS) ==== The following vital measurements were used to complete the NEWS. Measurement DT TEMP PULSE RESP BP POx F(C) (L/MIN)(%) 2024 21:37 97.6(36.4) 69 18 100/61 91 The NEWS total is 3. 1. Temperature (C/F): Score = 0 36.1 - 38.0 C (96.9 - 100.4 F) 2. Pulse: Score = 0 51-90 3. Respirations: Score = 0 12-20 4. Blood Pressure (Only Systolic BP, mmHg): Score = 2 91-100 5. Pulse Oximetry: Score = 1 94% - 95% 6. Supplemental oxygen in use: Score = 0 No 7. AVPU: Score = 0 Alert /madalyn/ ABILIO CARTER RN ADN REGISTERED NURSE Signed: 2024 22:57 ABILIO CARTER [facility] 2024 09:37 PM NURSING INPATIENT NOTE: LOCAL TITLE: [facility] NURSING FREQUENT DOCUMENTATION STANDARD TITLE: NURSING INPATIENT NOTE DATE OF NOTE: 2024@21:37 ENTRY DATE: 2024@21:37:54 AUTHOR: BERTRAM WELSH EXP COSIGNER: URGENCY: STATUS: COMPLETED Version 2.4 Charting in accordance with IN APPROVED [place] STANDARD (VAAES) ACUTE INPATIENT/REHABILITATION NURSING ADMISSION SCREENING, ASSESSMENT, AND STANDARDS OF CARE ==== PROVIDER NOTIFICATION ==== Provider Name: LENCHO Carter Notification Reason: Pain: 6 /madalyn/ BERTRAM WELSH CNA GIS SOFTWARE DEVELOPER Signed: 2024 21:42 Receipt Acknowledged By: 08/09/2024 03:55 /madalyn/ ABILIO CARTER RN ADN REGISTERED NURSE BERTRAM WELSH [facility] 2024 09:25 PM NURSING INPATIENT NOTE: LOCAL TITLE: INAES ACUTE INPATIENT NSG SHIFT ASSESSMENT STANDARD TITLE: NURSING INPATIENT NOTE DATE OF NOTE: 2024@21:25 ENTRY DATE: JUL 19, 2024@02:45:36 AUTHOR: ABILIO CARTER EXP COSIGNER: URGENCY: STATUS: COMPLETED Version 2.2 Charting in accordance with IN APPR[place]ED [place] STANDARD (VAAES) ACUTE INPATIENT/REHABILITATION NURSING ADMISSION SCREENING, ASSESSMENT, AND STANDARDS OF CARE ==== ASSESSMENT ==== ==== HANDOFF ==== Safety check completed ==== PAIN ASSESSMENT ==== Patient's acceptable pain goal: 0 No pain Are you currently experiencing pain? Yes - DVPRS scale used to assess Location: left hip [employer] and Veterans Pain Rating Scale (DVPRS): 5 Interrupts some activities Pain Score: 5 ==== CRISTOBAL FALL SCALE & TIPS PROGRAM ==== Cristobal Fall Scale: The Cristobal Fall scale was performed and score was 85. This is indicative of high risk for falls. History of falling: immediate or within 3 months? Yes Secondary diagnosis: Yes Ambulatory aid: Crutches/cane(s)/walker Intravenous therapy/Heparin lock: Yes Gait/Transferring: Weakness Mental Status: Oriented to own ability/knows own limitations Fall Tailoring Interventions for Patient Safety (TIPS) Fall TIPS initiated with patient: Yes Interventions: Walking Aids: Walker Assistance out of bed: Call for assistance before getting out of bed Safe patient handling device necessary Fall TIPS reviewed with patient: Yes Interventions: Walking Aids: Walker Assistance out of bed: Call for assistance before getting out of bed Safe patient handling device necessary ==== ENVIRONMENTAL SAFETY MANAGEMENT ==== Implemented safety standards of care: -[place] to unit & environment -Adequate room lighting -Bed in low and locked position -Call light within reach -Personal items within reach -Traffic path in room free of clutter -Non-slip footwear -Upper/half length side rails up for bed mobility -Sensory aids within reach -Encourage patient to utilize sensory support Additional safety measures: Alarms: Bed Mobility support items readily available ==== NEUROLOGICAL ==== Neurological Orientation: Oriented x4 Level of Consciousness (AVPU): Alert = Appears aware of and responsive to the environment on their own. Follows commands, opens eyes spontaneously, and tracks objects. Affect/behavior: Cooperative Calm [place] Agitation Sedation Scale (RASS): 0 Alert and calm ==== NEUROMUSCULAR/NEUROVASCULAR EXTREMITIES ASSESSMENT ==== Strength: Riding Teacher Bilateral: Moderate Upper Extremity Bilateral: Full strength Lower Extremity Bilateral: Full strength Sensation: Upper Extremity Sensation Bilateral: Intact Lower Extremity Sensation Bilateral: Intact Temperature: Upper Extremity Temperature Bilateral: Warm Lower Extremity Temperature Bilateral: Warm ==== CARDIOVASCULAR ==== Capillary Refill: All 4 extremities, less than or equal to 3 seconds. Peripheral Pulses: R Radial: 3+ Normal L Radial: 3+ Normal R Dorsalis Pedis: 3+ Normal L Dorsalis Pedis: 3+ Normal R Posterior Tibial: L Posterior Tibial: R Popliteal: L Popliteal: Edema: Present Dependent Location: [facility] leg Cardiovascular - Embolism Prevention: Comment: lovenox ==== RESPIRATORY ==== Respirations: Unlabored Pattern: Regular Breath Sounds Auscultated: Right Upper Lobe: Clear Left Upper Lobe: Clear Right Middle Lobe: Right Lower Lobe: Left Lower Lobe: ==== GASTROINTESTINAL ==== Elimination: Continent Abdominal Description: Protuberant (central obesity) Palpation: Soft, Non-tender Bowel Sounds: RUQ: Active LUQ: Active RLQ: Active LLQ: Active ==== GENITOURINARY ==== Elimination: Continent Color/Characteristic: Diane === INTEGUMENTARY/SKIN/WOUND - (INCLUDING HUGO) SEE NOTE: VAAES SKIN INPECTION/ASSESSMENT === ==== ACTIVITIES OF DAILY LIVING ==== Hygiene ADLs: Hand Hygiene: Performed post toileting Performed pre meals/snacks Oral Care: Non-ventilator patient: Patient teeth brushed: Independently ==== MOBILITY ==== Mobility Status: Independent: Able to stand and step without staff assistance Equipment utilized: Walker Gait: Steady ==== IV LINES ==== Peripheral IV: Line #1: Assessment: Location: Right, Hand Gauge: 20 Dressing Condition: Clean, dry, intact Transparent dressing Site Condition: No redness, swelling, pain Line Status: Patent/infusing Capped Flushed ==== PSYCHOSOCIAL ==== Type of Emotional Support Provided: 1:1 discussion, Hospitalization discussion, Treatment discussion, Ventilation of feelings encouraged Additional Comment: Continue to monitor patient and report if any changes noted. Monitor labs and vitals. Continue to give pain med as ordered for comfort. /madalyn/ ABILIO CARTER RN ADN REGISTERED NURSE Signed: 07/19/2024 02:52 ABILIO CARTER [facility] 2024 09:04 PM NURSING NOTE: LOCAL TITLE: [facility] SKIN INSPECTION/ASSESSMENT STANDARD TITLE: NURSING NOTE DATE OF NOTE: 2024@21:04 ENTRY DATE: 2024@21:04:56 AUTHOR: BRODERICK WHITE EXP COSIGNER: URGENCY: STATUS: COMPLETED Assessment Type: SKIN REINSPECTION/REASSESSMENT SKIN INSPECTION: Skin Color: Usual for ethnicity Skin Temperature: Warm Skin Moisture: Normal Skin Turgor: Elastic (normal/immediate) Hugo Skin Assessment: The patient's Hugo Scale Score is 20. The patient is considered not at risk for development of pressure ulcers/injuries. Sensory perception -- ability to respond meaningfully to pressure-related discomfort No impairment. Moisture -- degree to which skin is exposed to moisture Rarely moist. Activity -- ability to change and control body position Walks occasionally. Mobility -- ability to change and control body position Slightly limited. Nutrition -- usual food intake patterns Adequate. Friction and shear No apparent problem. INTERVENTIONS: The pressure injury interventions were not needed - patient/resident is not at risk. RISK FACTORS THAT INCREASE RISK FOR DEVELOPING PRESSURE INJURIES The patient/resident does not have any additional risk factors. SKIN ALTERATIONS: Pressure Ulcer/Injury Documentation from the past year: No data available SKIN ALTERATIONS: Wound Documentation from the past year: No data available for: Skin Integrity - Wound Skin Integrity - Wound Second Skin Integrity - Wound Third Skin Integrity - Wound Fourth Skin Integrity - Wound Fifth Skin Integrity - Wound Additional SKIN INTEGRITY: Intact /madalyn/ BRODERICK DENTON RN REGISTERED NURSE Signed: 2024 21:07 BRODERICK WHITE [facility] 2024 08:55 PM NURSING INPATIENT NOTE: LOCAL TITLE: [place] ACUTE INPATIENT NSG SHIFT ASSESSMENT STANDARD TITLE: NURSING INPATIENT NOTE DATE OF NOTE: 2024@20:55 ENTRY DATE: 2024@20:55:07 AUTHOR: BRODERICK WHITE EXP COSIGNER: URGENCY: STATUS: COMPLETED Version 2.2 Charting in accordance with IN APPROVED [place] STANDARD (INAES) ACUTE INPATIENT/REHABILITATION NURSING ADMISSION SCREENING, ASSESSMENT, AND STANDARDS OF CARE ==== ASSESSMENT ==== ==== HANDOFF ==== Bedside report and handoff completed Safety check completed ==== PAIN ASSESSMENT ==== Patient's acceptable pain goal: 0 No pain Are you currently experiencing pain? No: Pain Score: 0 ==== CRISTOBAL FALL SCALE & TIPS PROGRAM ==== Cristobal Fall Scale: The Cristobal Fall scale was performed and score was 35. This is indicative of moderate risk for falls. History of falling: immediate or within 3 months? No Secondary diagnosis: Yes Ambulatory aid: None/bedrest/nurse assist Intravenous therapy/Heparin lock: Yes Gait/Transferring: Normal/bed rest/immobile Mental Status: Oriented to own ability/knows own limitations Fall Tailoring Interventions for Patient Safety (TIPS) Fall TIPS initiated with patient: Yes Interventions: Communicate recent fall or risk of harm Fall TIPS reviewed with patient: Yes Interventions: Communicate recent fall or risk of harm ==== ENVIRONMENTAL SAFETY MANAGEMENT ==== Implemented safety standards of care: -[place] to unit & environment -Adequate room lighting -Bed in low and locked position -Call light within reach -Personal items within reach -Traffic path in room free of clutter -Non-slip footwear -Upper/half length side rails up for bed mobility -Sensory aids within reach -Encourage patient to utilize sensory support Additional safety measures: Increased frequency of rounding ==== NEUROLOGICAL ==== Neurological Orientation: Oriented x4 Level of Consciousness (AVPU): Alert = Appears aware of and responsive to the environment on their own. Follows commands, opens eyes spontaneously, and tracks objects. Affect/behavior: Cooperative Calm ==== NEUROMUSCULAR/NEUROVASCULAR EXTREMITIES ASSESSMENT ==== Strength: Riding Teacher Bilateral: Strong Upper Extremity Bilateral: Full strength Lower Extremity Bilateral: Full strength Sensation: Upper Extremity Sensation Bilateral: Intact Lower Extremity Sensation Bilateral: Intact Temperature: Upper Extremity Temperature Bilateral: Warm Lower Extremity Temperature Bilateral: Warm ==== CARDIOVASCULAR ==== Heart Sounds: Normal (S1S2) Capillary Refill: All 4 extremities, less than or equal to 3 seconds. Peripheral Pulses: All 4 extremities, 3+ normal. Edema: None ==== RESPIRATORY ==== Respirations: Unlabored Pattern: Regular Breath Sounds Auscultated: Anterior and posterior Left Upper Lobe: Clear Right Upper Lobe: Clear Right Middle Lobe: Clear Left Lower Lobe: Clear Right Lower Lobe: Clear ==== GASTROINTESTINAL ==== Last bowel movement: 9/25 No bowel movement reported by patient Abdominal Description: Rounded Bowel Sounds: RUQ: Active LUQ: Active RLQ: Active LLQ: Active ==== GENITOURINARY ==== Elimination: Continent === INTEGUMENTARY/SKIN/WOUND - (INCLUDING HUGO) SEE NOTE: VAAES SKIN INPECTION/ASSESSMENT === ==== ACTIVITIES OF DAILY LIVING ==== Hygiene ADLs: Oral Care: Non-ventilator patient: Patient teeth brushed: Patient declined declined ==== MOBILITY ==== Mobility Status: Independent: Able to stand and step without staff assistance Gait: Steady ==== IV LINES ==== Peripheral IV: Line #1: Assessment: Location: Right, Hand Gauge: 20 Dressing Condition: Clean, dry, intact Site Condition: No redness, swelling, pain Line Status: Patent/infusing ==== PSYCHOSOCIAL ==== Type of Emotional Support Provided: 1:1 discussion, Anticipated outcomes, Ventilation of feelings encouraged /es/ BRODERICK DENTON RN REGISTERED NURSE Signed: 2024 21:04 BRODERICK WHITE [facility] 2024 08:25 PM NURSING NOTE: LOCAL TITLE: [facility] SKIN INSPECTION/ASSESSMENT STANDARD TITLE: NURSING NOTE DATE OF NOTE: 2024@20:25 ENTRY DATE: 2024@23:21:53 AUTHOR: ABILIO CARTER COSIGNER: URGENCY: STATUS: COMPLETED Assessment Type: SKIN REINSPECTION/REASSESSMENT SKIN INSPECTION: Skin Color: Usual for ethnicity Skin Temperature: Warm Skin Moisture: Normal Skin Turgor: Elastic (normal/immediate) Hugo Skin Assessment: The patient's Hugo Scale Score is 20. The patient is considered not at risk for development of pressure ulcers/injuries. Sensory perception -- ability to respond meaningfully to pressure-related discomfort No impairment. Moisture -- degree to which skin is exposed to moisture Rarely moist. Activity -- ability to change and control body position Walks occasionally. Mobility -- ability to change and control body position Slightly limited. Nutrition -- usual food intake patterns Adequate. Friction and shear No apparent problem. INTERVENTIONS: The pressure injury interventions were not needed - patient/resident is not at risk. RISK FACTORS THAT INCREASE RISK FOR DEVELOPING PRESSURE INJURIES The patient/resident does not have any additional risk factors. SKIN INTEGRITY: Intact /madalyn/ ABILIO CARTER RN ADN REGISTERED NURSE Signed: 2024 23:23 ABILIO CARTER [facility] 2024 08:17 PM RESPIRATORY THERAPY CONSULT: LOCAL TITLE: RESPIRATORY THERAPY CONSULT ST[facility] STANDARD TITLE: RESPIRATORY THERAPY CONSULT DATE OF NOTE: 2024@20:17 ENTRY DATE: 2024@20:17:40 AUTHOR: SUSANNAH HAYWOOD EXP COSIGNER: URGENCY: STATUS: COMPLETED PATIENT DECLINED CPAP AT THIS TIME. RT ORDERED NASAL PILLOWS TO BE SHIPPED TO PATIENTS HOME. CONSULT COMPLETE. /madalyn/ SUSANNAH HAYWOOD REGISTERED RESPIRATORY THERAPIST Signed: 2024 20:18 SUSANNAH HAYWOOD [facility] 2024 11:40 AM INTERNAL MEDICINE INPATIENT NOTE: LOCAL TITLE: MEDICINE GENERAL INPATIENT NOTE STANDARD TITLE: INTERNAL MEDICINE INPATIENT NOTE DATE OF NOTE: 2024@11:40 ENTRY DATE: 2024@11:40:27 AUTHOR: MINERVA POWELL EXP COSIGNER: ELISABETH VERDUGO URGENCY: STATUS: COMPLETED INTERNAL MEDICINE PROGRESS NOTE MEDICINE TEAM 2 B Last Admission: 07/16/24 11:33:02 pm Admit Dx: INTRACTABLE SCIATICA. Interval History: -pain much better controlled overnight however patient not using CPAP due to mask dsicomfort -feeling okay with titration of pramipexole and starting gabapentin -Giving iron dextran infusion today -discontinuing hydromorphone -Will discuss prazosin with psych for night terrors -Will discuss nasal pillows mask with RT Active Inpatient Medications: 1) OXYCODONE (IMMEDIATE RELEASE) UD TAB PO Q6H PRN 10MG 2) OXYCODONE (IMMEDIATE RELEASE) UD TAB PO Q6H PRN 5MG 3) ENOXAPARIN INJ SQ QDAILY 40MG/0.4ML 4) LEVOTHYROXINE (SYNTHROID) TAB PO QAMAC 175MCG 5) ONDANSETRON TAB PO Q6H PRN 4MG 6) TIZANIDINE TAB PO TID PRN 4MG 7) TRAZODONE TAB PO QHS PRN 100MG 8) DULOXETINE CAP,EC PO QDAILY 9) ACETAMINOPHEN TAB PO Q8H 1000MG 10) FOLIC ACID TAB PO QDAILY 1MG 11) LIDOCAINE 5% PATCH TRANSDERMAL QDAILY 2 PATCHES 12) DIPHENHYDRAMINE CAP,ORAL PO QID PRN 25MG 13) PRAMIPEXOLE TAB PO BID 1MG 14) GABAPENTIN (LOWER DOSE) CAP,ORAL PO QHS 100MG 15) POLYETHYLENE GLYCOL 3350 PKT POWDER,ORAL PO QDAILY 1 PACKET 16) SENNOSIDES (OTC) TAB PO QDAILY 8.6MG 17) IRON DEXTRAN (INFED) INJ,SOLN IV ONE-TIME 975MG 18) IRON DEXTRAN (INFED) INJ,SOLN IV ONE-TIME 25MG Life Sustaining Treatment Orders Vital Signs: Pulse: 58 (2024 09:52) BP: 113/71 (2024 09:52) RESP: 20 (2024 09:52) Pain: 0 (2024 09:52) Tmax: 98.4 F [36.9 C] (2024 09:52) Weight: 192.5 lb [87.32 kg] (2024 06:04) PHYSICAL EXAM: General: pleasant female, tearful, in visible pain, NAD HEENT: oral mucosa moist Lungs: CTAB CVS: RRR Abdomen: Nondistended, nontender Ext: No lower extremity edema, RLE exam normal, LLE trembling with exertion, 5/5 strength, tender to light and deep touch mostly in areas of posterior lateral calf, medial knee (patellar region), left buttocks Neuro: AOx4, no focal deficits noted Recent Labs: BASIC METABOLIC PANEL: SODIUM 142 mEq/L 2024 06:00 POTASSIUM 4.2 mEq/L 2024 06:00 CHLORIDE 108 H mEq/L 2024 06:00 UREA NITROGEN 20.0 mg/dL 2024 06:00 CREATININE 0.85 mg/dL 2024 06:00 CALCIUM 9.6 mg/dL 2024 06:00 CARBON DIOXIDE 26 mEq/L 2024 06:00 GLUCOSE 91 mg/dL 2024 06:00 EGFR (CKD-EPI 2020) 84.5 2024 06:00 WBC: 5.6 10*3/uL (07/18/24 06:00) HCT: 40.5 % (07/18/24 06:00) HGB: HGB 12.9 g/dL 2024 06:00 Plt: PLT 213 10*3/uL 2024 06:00 CK-MB: ____ TROPONIN I HISTORY: No data available Other Labs and Data: Assessment/Plan: 48-year-old female with PMH of fibromyalgia, chronic pain syndrome, chronic left leg pain presenting with acute on chronic left leg pain of unknown origin #Acute on chronic left lower leg pain #hx of chronic left leg sciatica - pain is difficult to localize as is present in 3 distinct areas, present for over 20 years but now acutely worsened - EMG previously negative, MRI lumbar spine in past with possible peroneal nerve injury - DDx: possibly unilateral RLS, also has hx of excercise induced compartment syndrome s/p fasciotomy x2, unclear if has residual neuropathy of sorts contributing, otherwise has fibromyalgia and may have complex chronic pain syndrome with no organic cuase PLAN: - Continue oxycodone at 5/10 q6 prn for mod/severe pain ] - Bowel regimen with miralax and senna - Tylenol 1000 TID scheduled - PT consult for mobilization - Neurology consulted, appreciate recs - no further w/u, signed off - Psychaitry consulted, appreciate recs - Will coordinate with outpatient pain management DRUG COORDINATOR to see what options for pain control are available outpatient #Iron deficiency - Tsat low and Ferritin 11 - not tolerated Ferrous sulfate in the past PLAN: - IV repletion while inpatient with Iron dextran 25mg test dose followed by 975mg infusion over 4 hours - Will need repeat testing in outpatient setting #Chronic insomnia #RLS - Home regimen: pramipexole 1.5 BID - documented iron deficiency in the past not corrected due to PLAN: - Vitmain D level pending - Treating iron deficiency as above - Per psych and neurology, reduce pramipexole to 1mg BID for 3 days and then 0.5mg BID for 3 days then can stop - Initiate gabepntin 100mg qHS for RLS and neuromodulation for pain control - Continue trazadone 100mg qHS and tizanidine qHS #moderate obstructive sleep apnea - last PSG was 2021, noted to have AHI of 12.9 and PLMs, no CPAP titration study - trialed CPAP at home but could not tolerate due to discomfort PLAN: - RT consult to trial CPAP again here with different mask - patient would like to try nasal pillows today #Depresison #Anxiety with hx of panic attacks #night terrors - Home medications: Duloxetine 90mg qHS PLAN: - Continue duloxetine 90mg qHS - Outpatient psych appointment set for next Monday - Will discuss with psychiatry about inpatient or outpatient initiation of prazosin for night terrors #Obesity with hx Gastric sleeve 05/2023 #Hx of DM #risk of nutrition deficiency - Patient was previously on metformin but it was stopped. - Her most recent A1C was 5.7 05/2024. - Weight loss of 97 lbs over 1 year PLAN: - CTM #B12 Deficiency - B12 192 - has risk factor of bariatric surgery - already getting B12 injections monthly, has hives with oral dose PLAN: - Can consider re dosing B12 as 1000mcg once per week for 8 weeks followed by monthly injections #Hypothyroidism: TSH 3.7 on admission, will continue home levothyroxine 175mcg daily #Fibromylgia: not on medications specifically for this outpatient Code Status: FULL Diet: Regular DVT ppx: Lovenox Access: PIV Urinary: Spontaneous Dispo/Social: Able to go home has and daughter, barrier is pain control, seems like no real intervention will occur this admission /madalyn/ Minerva Powell MD Resident Physician Signed: 2024 12:08 /madalyn/ ELISABETH VERDUGO M.D. STAFF PHYSICIAN Cosigned: 2024 12:11 MINERVA POWELL [facility] 2024 11:16 AM INTERNAL MEDICINE INPATIENT NOTE: LOCAL TITLE: MEDICINE GENERAL INPATIENT NOTE STANDARD TITLE: INTERNAL MEDICINE INPATIENT NOTE DATE OF NOTE: 2024@11:16 ENTRY DATE: 2024@11:17:17 AUTHOR: TIM MADDOX EXP COSIGNER: ELISABETH VERDUGO URGENCY: STATUS: COMPLETED MEDICINE INPATIENT GENERAL NOTE STL 49 year old FEMALE admitted on Jun 23:33 for Last Admission: 07/16/24 11:33:02 pm Admit Dx: INTRACTABLE SCIATICA. Subjective Complaints: left leg pain localized to the posterior calf, knee, and lateral hip, pain is present but tolerable with current medication regimen, patient also notes 1 episode of copius vaginal discharge but denies itching or discomfort Major events over the last day: patient tolerated the decreased pramipexole dose with the addition of gabapentin well, willing to continue with pramipexole titration Active Inpatient Medications: 1) OXYCODONE (IMMEDIATE RELEASE) UD TAB PO Q6H PRN 10MG 2) OXYCODONE (IMMEDIATE RELEASE) UD TAB PO Q6H PRN 5MG 3) ENOXAPARIN INJ SQ QDAILY 40MG/0.4ML 4) LEVOTHYROXINE (SYNTHROID) TAB PO QAMAC 175MCG 5) ONDANSETRON TAB PO Q6H PRN 4MG 6) TIZANIDINE TAB PO TID PRN 4MG 7) TRAZODONE TAB PO QHS PRN 100MG 8) DULOXETINE CAP,EC PO QDAILY 9) ACETAMINOPHEN TAB PO Q8H 1000MG 10) FOLIC ACID TAB PO QDAILY 1MG 11) LIDOCAINE 5% PATCH TRANSDERMAL QDAILY 2 PATCHES 12) DIPHENHYDRAMINE CAP,ORAL PO QID PRN 25MG 13) PRAMIPEXOLE TAB PO BID 1MG 14) GABAPENTIN (LOWER DOSE) CAP,ORAL PO QHS 100MG 15) POLYETHYLENE GLYCOL 3350 PKT POWDER,ORAL PO QDAILY 1 PACKET 16) SENNOSIDES (OTC) TAB PO QDAILY 8.6MG Vital Signs: Pulse: 58 (2024 09:52) BP:113/71 (2024 09:52) RESP:20 (2024 09:52) Pain:0 (2024 09:52) Tmax: 98.4 Pulse Oximetry: 95-100% Weight: 192.5 lb [87.32 kg] (2024 06:04) Intake/Output: not documented PHYSICAL EXAM: General: resting comfortably on exam, alert and oriented, in mild pain but not in distress HEENT: no slceral icterus, no LAD, mucous membranes moist Lungs: clear to ausculation bilaterally CVS: daniel S1 ,S2, RRR, no murmurs rubs or gallops Abdomen: BS normal, soft and nontender to palpation Ext: no swelling, tenderness, or erythema, DP pulses present bilaterally Neuro: A&Ox3, no focal neurological deficits except left foot drop, which patient reports is chronic Skin/ulcers: no skin lesions present Other: PIV in place Recent Labs: BASIC METABOLIC PANEL: SODIUM 142 mEq/L 2024 06:00 POTASSIUM 4.2 mEq/L 2024 06:00 CHLORIDE 108 H mEq/L 2024 06:00 UREA NITROGEN 20.0 mg/dL 2024 06:00 CREATININE 0.85 mg/dL 2024 06:00 CALCIUM 9.6 mg/dL 2024 06:00 CARBON DIOXIDE 26 mEq/L 2024 06:00 GLUCOSE 91 mg/dL 2024 06:00 EGFR (CKD-EPI 2020) 84.5 2024 06:00 WBC: 5.6 10*3/uL (07/18/24 06:00) HCT: 40.5 % (07/18/24 06:00) HGB: HGB 12.9 g/dL 2024 06:00 Plt: PLT 213 10*3/uL 2024 06:00 CK-MB: ____ TROPONIN I HISTORY: No data available Other Labs and Data: B12 194 (L), folate 8.8, vitamin D 39, ferritin 11,54 (L), transferrin saturation 11% (L), transferrin 336, iron 45 (L) Assessment/Plan: 48-year-old female with PMH of fibromyalgia, chronic pain syndrome, chronic left leg pain presenting with acute on chronic left leg pain with unclear etiology #Acute on chronic left lower leg pain #hx of chronic left leg sciatica - pain is difficult to localize as is present in 3 distinct areas (posterior calf, knee, and lateral hip), present for over 20 years but now acutely worsened with different character (feels like it's been hit with a baseball bat) - EMG previously negative, MRI lumbar spine in past with possible peroneal nerve injury - Has hx of compartment syndrome s/p fasciotomy x2, unclear if has residual neuropathy of sorts contributing, otherwise has fibromyalgia and may have complex chronic pain syndrome with no organic cause - labs show BOBBY (ferritin 11.54, t sat 11%), B12 deficient at 194, folate and vitamin D WNL, B1 still pending - per psychiatry recs - decreased pramipexole to 1 mg BID for 3 days and add gabapentin 100 mg BID, then further decrease pramipexole to 0.5 mg BID for 3 more days before discontinuing PLAN: - Oxycodone initially at q4prn, now will do 03/01 q6 prn for mod/severe pain - Tylenol 1000 TID scheduled - PT consulted for mobilization - Neurology consulted, recommending no further workup and signed off - continue gabapentin 100 mg BID #insomnia #RLS #PTSD induced nightmares - Home regimen: pramipexole 1.5 BID - has discussed trialing prazosin for nightmares in the past, declined previously d/t concern for blood pressure drops - patient willing to try while inpatient after discussion PLAN: - Vitmain D and iron studies tomorrow - Per psych and neurology, reduce pramipexole to 1mg BID for 3 days and then 0.5mg BID for 3 days then can stop - Initiate gabepntin 100mg qHS for RLS and neuromodulation for pain control - Continue trazadone 100mg qHS and tizanidine qHS - Patient agreed to trial CPAP with nasal pillow - If psychiatry on board, trial prazosin at night for PTSD associated nightmares #Depresison #Anxiety with hx of panic attacks - Home medications: Duloxetine 90mg qHS PLAN: - Continue duloxetine 90mg qHS - Outpatient psych appointment set for next Monday #Obesity with hx Gastric sleeve 05/2023 #Hx of DM - Patient was previously on metformin but it was stopped. - Her most recent A1C was 5.7 05/2024. - Weight loss of 97 lbs over 1 year - vitamin D normal, folate borderline low (8.8) B1 still pending - B12 deficient at 192, however patient has a documented allergy to B12 supplementation - iron panel indicative of BOBBY PLAN: - hold B12 repletion for now until more is known about her allergy hx #Hypothyroidism: TSH 3.7 on admission, will continue home levothyroxine 175mcg daily #Fibromylgia: not on medications specifically for this outpatient Metaclf: No Lines No VTE prophylaxis: othernone Life Sustaining Treatment Orders Disposition: Inpatient Medicine, MED2B Living arrangements prior to admission: living at home with Anticipate discharge date:Jun Anticipate discharge to: Prior Living Situation /es/ TIM MADDOX Medical Student Signed: 2024 11:51 /madalyn/ ELISABETH VERDUGO M.D. STAFF PHYSICIAN Cosigned: 2024 12:12 TIM MADDOX [facility] 2024 06:06 AM NURSING INPATIENT NOTE: LOCAL TITLE: VAAES NURSING FREQUENT DOCUMENTATION STANDARD TITLE: NURSING INPATIENT NOTE DATE OF NOTE: 2024@06:06 ENTRY DATE: 2024@06:06:39 AUTHOR: LOUIS HERNANDEZ EXP COSIGNER: URGENCY: STATUS: COMPLETED Version 2.4 Charting in accordance with IN APPROVED [place] STANDARD (VAAES) ACUTE INPATIENT/REHABILITATION NURSING ADMISSION SCREENING, ASSESSMENT, AND STANDARDS OF CARE ==== PROVIDER NOTIFICATION ==== Provider Name: NASEEM Yanez RN Notification Reason: Other: 55 /madalyn/ DIANDRA MARROQUIN FILTERS ASSEMBLER Signed: 2024 06:08 Receipt Acknowledged By: 08/11/2024 03:21 /angelika WILLIS REGISTERED NURSE LOUIS HERNANDEZ [facility] 2024 01:27 AM NURSING INPATIENT NOTE: LOCAL TITLE: VAAES NURSING FREQUENT DOCUMENTATION STANDARD TITLE: NURSING INPATIENT NOTE DATE OF NOTE: 2024@01:27 ENTRY DATE: 2024@01:27:39 AUTHOR: LOUIS HERNANDEZ EXP COSIGNER: URGENCY: STATUS: COMPLETED Version 2.4 Charting in accordance with [place] APPR[place]ED [place] STANDARD (VAAES) ACUTE INPATIENT/REHABILITATION NURSING ADMISSION SCREENING, ASSESSMENT, AND STANDARDS OF CARE ==== PROVIDER NOTIFICATION ==== Provider Name: GAIL SanchezRN Notification Reason: Other: 46-HR /es/ DIANDRA MARROQUIN FILTERS ASSEMBLER Signed: 2024 01:29 Receipt Acknowledged By: * AWAITING SIGNATURE * SANJUANITA REYNOLDS RHODA [facility] Jul 17, 2024 09:30 PM NURSING INPATIENT NOTE: LOCAL TITLE: [facility] NURSING FREQUENT DOCUMENTATION STANDARD TITLE: NURSING INPATIENT NOTE DATE OF NOTE: JUL 17, 2024@21:30 ENTRY DATE: JUL 17, 2024@22:52:49 AUTHOR: NASEEM WILLIS COSIGNER: URGENCY: STATUS: COMPLETED Version 2.4 Charting in accordance with [place] APPR[place]ED [place] STANDARD (INAES) ACUTE INPATIENT/REHABILITATION NURSING ADMISSION SCREENING, ASSESSMENT, AND STANDARDS OF CARE ==== NATIONAL EARLY WARNING SCORE (NEWS) ==== The following vital measurements were used to complete the NEWS. Measurement DT TEMP PULSE RESP BP POx F(C) (L/MIN)(%) 07/17/2024 21:10 98.4(36.9) 81 18 126/75 99 The NEWS total is 0. 1. Temperature (C/F): Score = 0 36.1 - 38.0 C (96.9 - 100.4 F) 2. Pulse: Score = 0 51-90 3. Respirations: Score = 0 12-20 4. Blood Pressure (Only Systolic BP, mmHg): Score = 0 111-219 5. Pulse Oximetry: Score = 0 96% or greater 6. Supplemental oxygen in use: Score = 0 No 7. AVPU: Score = 0 Alert Patient Status: Remains on unit /madalyn/ NASEEM WILLIS REGISTERED NURSE Signed: 07/17/2024 22:53 NASEEM WILLIS [facility] Jul 17, 2024 09:00 PM NURSING NOTE: LOCAL TITLE: [facility] SKIN INSPECTION/ASSESSMENT STANDARD TITLE: NURSING NOTE DATE OF NOTE: JUL 17, 2024@21:00 ENTRY DATE: JUL 17, 2024@22:13:22 AUTHOR: NASEEM WILLIS EXP COSIGNER: URGENCY: STATUS: COMPLETED Assessment Type: INITIAL SKIN INSPECTION/ASSESSMENT SKIN INSPECTION: Skin Color: Usual for ethnicity Skin Temperature: Warm Skin Moisture: Normal Skin Turgor: Elastic (normal/immediate) Hugo Skin Assessment: The patient's Hugo Scale Score is 22. The patient is considered not at risk for development of pressure ulcers/injuries. Sensory perception -- ability to respond meaningfully to pressure-related discomfort No impairment. Moisture -- degree to which skin is exposed to moisture Rarely moist. Activity -- ability to change and control body position Walks frequently. Mobility -- ability to change and control body position No limitation. Nutrition -- usual food intake patterns Adequate. Friction and shear No apparent problem. INTERVENTIONS: The pressure injury interventions were not needed - patient/resident is not at risk. RISK FACTORS THAT INCREASE RISK FOR DEVELOPING PRESSURE INJURIES The patient/resident does not have any additional risk factors. SKIN INTEGRITY: Intact /madalyn/ NASEEM WILLIS REGISTERED NURSE Signed: 07/17/2024 22:14 NASEEM WILLIS [facility] Jul 17, 2024 09:00 PM NURSING INPATIENT NOTE: LOCAL TITLE: [facility] ACUTE INPATIENT NSG SHIFT ASSESSMENT STANDARD TITLE: NURSING INPATIENT NOTE DATE OF NOTE: JUL 17, 2024@21:00 ENTRY DATE: JUL 17, 2024@22:19:39 AUTHOR: NASEEM WILLIS EXP COSIGNER: URGENCY: STATUS: COMPLETED Version 2.2 Charting in accordance with [facility] APPROVED [place] STANDARD (VAAES) ACUTE INPATIENT/REHABILITATION NURSING ADMISSION SCREENING, ASSESSMENT, AND STANDARDS OF CARE ==== ASSESSMENT ==== ==== HANDOFF ==== Bedside report and handoff completed Safety check completed ==== PAIN ASSESSMENT ==== Patient's acceptable pain goal: 2 Notice pain, does not interfere with activities Are you currently experiencing pain? Yes - DVPRS scale used to assess Location: [place] [employer] [facility] [employer] Pain Rating Scale (DVPRS): Pain Score: 8 ==== CRISTOBAL FALL SCALE & TIPS PROGRAM ==== Cristobal Fall Scale: The Cristobal Fall scale was performed and score was 20. This is indicative of low risk of falls. History of falling: immediate or within 3 months? No Secondary diagnosis: No Ambulatory aid: None/bedrest/nurse assist Intravenous therapy/Heparin lock: Yes Gait/Transferring: Normal/bed rest/immobile Mental Status: Oriented to own ability/knows own limitations ==== NEUROLOGICAL ==== Neurological Orientation: Oriented x4 Level of Consciousness (AVPU): Alert = Appears aware of and responsive to the environment on their own. Follows commands, opens eyes spontaneously, and tracks objects. === ASPIRATION RISK ASSESSMENT AND SWALLOW SCREEN === Aspiration Risk(s): Screening complete. No aspiration risk identified. Bedside Swallow Screen not indicated. ==== NEUROMUSCULAR/NEUROVASCULAR EXTREMITIES ASSESSMENT ==== Strength: Riding Teacher Bilateral: Strong Upper Extremity Bilateral: Full strength Lower Extremity Bilateral: Full strength Sensation: Upper Extremity Sensation Bilateral: Intact Lower Extremity Sensation Bilateral: Intact Temperature: Upper Extremity Temperature Bilateral: Warm Lower Extremity Temperature Bilateral: Warm ==== CARDIOVASCULAR ==== Heart Sounds: Normal (S1S2) Heart Rate/Rhythm (without youth nutritional monitor): Regular Capillary Refill: All 4 extremities, less than or equal to 3 seconds. Peripheral Pulses: All 4 extremities, 3+ normal. Edema: None ==== RESPIRATORY ==== Respirations: Unlabored Pattern: Regular Breath Sounds Auscultated: Anterior and posterior Left Upper Lobe: Clear Right Upper Lobe: Clear Right Middle Lobe: Clear Left Lower Lobe: Clear Right Lower Lobe: Clear ==== GASTROINTESTINAL ==== Elimination: Continent Abdominal Description: Rounded Distended Protuberant (central obesity) Palpation: Soft, Non-tender Bowel Sounds: RUQ: Active LUQ: Active RLQ: Active LLQ: Active ==== GENITOURINARY ==== Elimination: Continent === INTEGUMENTARY/SKIN/WOUND - (INCLUDING HUGO) SEE NOTE: VAAES SKIN INPECTION/ASSESSMENT === ==== IV LINES ==== Peripheral IV: Line #1: Assessment: Location: Right, Hand Gauge: 20 Dressing Condition: Clean, dry, intact Site Condition: No redness, swelling, pain Line Status: Capped /madalyn/ NASEEM WILLIS REGISTERED NURSE Signed: 07/17/2024 22:29 NASEEM WILLIS [facility] Jul 17, 2024 08:19 PM RESPIRATORY THERAPY CONSULT: LOCAL TITLE: RESPIRATORY THERAPY CONSULT ST STANDARD TITLE: RESPIRATORY THERAPY CONSULT DATE OF NOTE: JUL 17, 2024@20:19 ENTRY DATE: JUL 17, 2024@20:20 AUTHOR: SUSANNAH HAYWOOD EXP COSIGNER: URGENCY: STATUS: COMPLETED PATIENT DECLINED CPAP AT THIS TIME. CONSULT COMPLETE. /madalyn/ SUSANNAH HAYWOOD REGISTERED RESPIRATORY THERAPIST Signed: 07/17/2024 20:20 SUSANNAH HAYWOOD [facility] Jul 17, 2024 01:56 PM PSYCHIATRY CONSULT: LOCAL TITLE: PSYCHIATRY BIN CONSULT ST STANDARD TITLE: PSYCHIATRY CONSULT DATE OF NOTE: JUL 17, 2024@13:56 ENTRY DATE: JUL 17, 2024@13:56:36 AUTHOR: CECIL JONES COSIGNER: URGENCY: STATUS: COMPLETED PSYCHIATRY BIN CONSULT ST Has ADDENDA PSYCHIATRY CONSULTATION NOTE REQUESTING SERVICE: Internal medicine, Dr. Verdugo. REASON FOR CONSULTATION: Anxiety management. Name: REBECA NUNES Age: 48 Gender: FEMALE Visit Date: JUL 17, 2024 HPI: ==== Ms. Nunes is a 48-year-old with past psychiatric history of MDD, JOB, insomnia, PHILLY, past medical history of migraines, fibromyalgia, chronic pain syndrome, cervicalgia, lumbar DDD, arthritis admitted to internal medicine with worsening left lower extremity pain and consulted to psychiatry for management of anxiety. This morning Ms. Nunes reports that her mood is physically, mentally exhausted with a recurrent history of low mood, depression, low energy, sleep disturbance, crying spells, feelings of hopelessness, worthlessness, lasting several weeks consistent with MDD. She denies suicidal/homicidal ideation plan intention. She denies recent suicide attempts, rehearsals, research, planning, etc. Family is protective. She has 1 firearm and uses gun safe/locks and we discussed lethal means counseling. She reports she can go a few days with little sleep and feeling more irritible, however reports feeling exhausted and denies euphoria, impulsivity, hyperactivity, talkativeness, goal-directedness, etc suggestive of antwon recent or remote. Ms. Nunes denies auditory/visual hallucinations and does not appear to be responding to unseen stimuli. She denies delusions of persecution/paranoia, passive control, thought insertion/withdrawal, grandiosity, reference, as well as Capgras/Fregoli delusions. There is no history of formal thought disorder. She did report having hallucinations on buspirone. We discuss various treatment options (ie switching anti-depressants given bariatric surgery hx, augmentation with SGA to target irritibility/mood, etc). At this time she reports wanting to focus on getting pain better controlled on a stable regimen before adjusting antidepressant regimen. PAST PSYCHIATRIC HISTORY: No [facility] hospitalizations. No other known psychiatric hospitalizations. Remote OD attempt age 15. No rTMS, no ECT, no neuromodulation, no esketamine/ketamine trials. Past medication trials: Alprazolam up to 0.25 mg TID PRN Amitriptyline up to 25 mg QHS Bupropion up to 100 mg BID Bupropion SA up to 150 mg BID Bupropion XR up to 150 mg daily Buspirone up to 5 mg TID Clonidine up to 0.1 mg daily Citalopram up to 20 mg daily Duloxetine up to 90 mg daily Gabapentin up to 600 mg BID Nortriptyline up to 50 mg QHS Paroxetine unknown dose Pramipexole up to 1.5 mg BID Propranolol SA up to 80 mg daily Topiramate up to 100 mg BID Trazodone up to 100 mg QHS PRN Venlafaxine XR up to 150 mg daily Zolpidem up to 2.5 mg QHS PRN PAST MEDICAL HISTORY: 1) Family history of ischemic heart disease (SNOMED CT 491567454) 2) Migraine (SNOMED CT 10098208) 3) Vitamin D deficiency 4) Hypothyroidism 5) Low back pain 6) Depression 7) Mastodynia 8) Lumbar radiculopathy 9) Irritable bowel syndrome characterized by alternating bowel habit 10) Fibromyalgia 11) Chronic pain in female pelvis 12) Kidney stone 13) Insomnia 14) Compartment syndrome 15) Obesity (SCT 856587577) 16) Arthritis 17) Intermittent palpitations 18) Chronic obstructive lung disease 19) Obstructive sleep apnea of adult 20) Poor pelvic muscle tone 21) Cervicalgia 22) Bacterial cellulitis 23) Overactive bladder SUBSTANCE ABUSE: Denies alcohol/substance use and a history consistent with substance use disorders. FAMILY HISTORY: Reports depression/anxiety and a cousin. Denies a known history of suicide attempts or completions in the family. [place] is uncertain regarding history of Parkinson's disease, bipolar illness in the family. Reports grandmother had an unknown dementia. SOCIAL HISTORY: Currently living with and oldest daughter. Has 1 son and 2 daughters. Currently not working. Has one [id number] granddaughter. Completed college. [employer] . MEDICATIONS: Active Inpatient Medications (including Supplies): Active Inpatient Medications Status 1) ACETAMINOPHEN TAB 1000MG PO Q8H ACTIVE 2) DIPHENHYDRAMINE CAP,ORAL 25MG PO QID PRN itching or ACTIVE allergy associated with opiate therapy 3) DULOXETINE CAP,EC 90MG PO QDAILY ACTIVE 4) ENOXAPARIN INJ 40MG/0.4ML SQ QDAILY ACTIVE 5) FOLIC ACID TAB 1MG PO QDAILY ACTIVE 6) HYDROMORPHONE INJ,SOLN 1MG/0.5ML IVP ONE-TIME ACTIVE 7) HYDROMORPHONE INJ,SOLN 1MG/0.5ML IVP Q6H PRN For ACTIVE severe pain 9-10 8) KETOROLAC (IV) INJ 30MG/1ML IVP ONE-TIME ACTIVE 9) LEVOTHYROXINE (SYNTHROID) TAB 175MCG PO QAMAC ACTIVE 10) LIDOCAINE 5% PATCH 2 PATCHES TRANSDERMAL QDAILY one ACTIVE on hip on affected area and another on knee or calf per patients preference 11) ONDANSETRON TAB 4MG PO Q6H PRN For nausea/vomiting ACTIVE 12) OXYCODONE (IMMEDIATE RELEASE) UD TAB 10MG PO Q4H PRN ACTIVE For severe pain score 6-8 13) OXYCODONE (IMMEDIATE RELEASE) UD TAB 5MG PO Q4H PRN ACTIVE For mild to moderate pain score 1-5 14) PRAMIPEXOLE TAB 1.5MG PO BID ACTIVE 15) TIZANIDINE TAB 4MG PO TID PRN For spasticity ACTIVE 16) TRAZODONE TAB 100MG PO QHS PRN For insomnia (1st ACTIVE line) ACTIVE OUTPATIENT INJECTIONS AND INPATIENT MEDICATIONS 1) HYDROMORPHONE INJ,SOLN IVP ONE-TIME 1MG/0.5ML 2) KETOROLAC (IV) INJ IVP ONE-TIME 30MG/1ML 3) HYDROMORPHONE INJ,SOLN IVP Q6H PRN 1MG/0.5ML 4) OXYCODONE (IMMEDIATE RELEASE) UD TAB PO Q4H PRN 10MG 5) OXYCODONE (IMMEDIATE RELEASE) UD TAB PO Q4H PRN 5MG 6) ENOXAPARIN INJ SQ QDAILY 40MG/0.4ML 7) LEVOTHYROXINE (SYNTHROID) TAB PO QAMAC 175MCG 8) PRAMIPEXOLE TAB PO BID 1.5MG 9) ONDANSETRON TAB PO Q6H PRN 4MG 10) TIZANIDINE TAB PO TID PRN 4MG 11) TRAZODONE TAB PO QHS PRN 100MG 12) DULOXETINE CAP,EC PO QDAILY 13) ACETAMINOPHEN TAB PO Q8H 1000MG 14) FOLIC ACID TAB PO QDAILY 1MG 15) LIDOCAINE 5% PATCH TRANSDERMAL QDAILY 2 PATCHES 16) DIPHENHYDRAMINE CAP,ORAL PO QID PRN 25MG OBJECTIVE: Mental Status Exam: *Appearance: appears approximately stated age, wearing hospital clothing *Behavior: cooperative, engaged, not in acute distress nor acutely agitated *Speech: normal rate, volume, and prosody. *Eye contact: Appropriate *Movements: No PSA/PSR; no mannerisms, tics, dystonic reactions, tardive movements or other abnormal movements appreciated *Mood: mentally, physically exhausted *Affect: Congruent, constricted *Thought Process: linear, logical *Thought Content: Denies SI, HI, or AVH. No evidence of delusional content, paranoid ideation, IOR, thought blocking/insertion/withdrawal , or internal preoccupation. *Insight: Fair (describes illness, symptomatology, and desire for treatment) *Judgment: Fair (help-seeking behaviors, medication adherent, no behavioral incidents) *Cognitive Assessment: able to follow conversation and respond logically, short and long-term memory intact grossly, AO to name/place/year. Able to maintain attention adequately. IMPRESSION: Ms. Nunes is a 48-year-old with past psychiatric history of MDD, JOB, insomnia, PHILLY, admitted to internal medicine with worsening left lower extremity pain and consulted to psychiatry for management of anxiety. Consideration should be made at hx of bariatric surgery and that absorption may not be optimal for duloxetine, however wishes to continue current dosing for now (could consider change to IR venlafaxine vs. SSRI such as escitalopram in future). Of note her pramipexole dose is in Parkinson Disease dosing range and could contribute to worsening anxiety. Ideally iron repletion could be offered for RLS (given her most recent levels, ferritin 18 in Oct 2023) if she can tolerate. Also treating her PHILLY with CPAP or MRD would be helpful to reduce sleep disorders including PMLS, etc. The is not suicidal/homicidal, not clinically intoxicated, and not gravely disabled due to antwon or psychosis and therefore, within a reasonable degree of medical certainty does not appear to pose an imminent harm to self or others and does not meet committment criteria by [place] statute. Diagnoses (DSM 5 Criteria): MDD, recurrent, moderate JOB PHILLY RECOMMENDATION: # LABS - Iron studies please (including ferritin) - Vit D, B12, folate, thiamine labs please - Consider other vitamin levels if team feels clinically relevant due to bariatric surgery hx # RLS/PHILLY - CPAP, rec resp therapy visit with vet to enhance compliance - Ferritin low in 10/2023, ideally vet can be rx with iron instead of dopamine agonist (consider heme-onc consult as vet reports she did not tolerate PO iron) - Please consult with neurology re: RLS mgmt to see if pramipexole can be reduced (if iron not option could gabapentin v pregabilin be retrialed at night only?) -dopamine agonists can NOT be stopped abruptly given NMS risk - Revisit sleep behaviors after above steps # MOOD/ANXIETY - at this time declines medication adjustment - f/u outpt (alerting [facility], psychiatrist) -ideally can make 07/23/24 1130am appt with Dr. Beebe has been provided with crisis resources. Thank you for this interesting consultation. Recommendations discussed with Dr. Powell of the primary team. Jimy Jones M.D. Staff Psychiatrist [facility] /madalyn/ Jimy Jones M.D. Staff PsychiatristBIN [facility] [place] Signed: 07/17/2024 15:29 Receipt Acknowledged By: 07/17/2024 17:18 /madalyn/ CONCEPCIÓN BARTLETT Staff PsychiatristBENITO [facility] [place] [facility] 07/17/2024 17:03 /madalyn/ Minerva Powell MD Resident Physician 07/17/2024 ADDENDUM STATUS: COMPLETED [place] also noted recurrent hx of excessive worrying, difficulty relaxing, associated tension, irritibility consistent with JOB. /madalyn/ Jimy Jones M.D. Staff PsychiatristBIN [facility] [place] [facility] Signed: 07/17/2024 15:31 BRIAN JONES [facility] Jul 17, 2024 01:29 PM INTERNAL MEDICINE INPATIENT NOTE: LOCAL TITLE: MEDICINE GENERAL INPATIENT NOTE STANDARD TITLE: INTERNAL MEDICINE INPATIENT NOTE DATE OF NOTE: JUL 17, 2024@13:29 ENTRY DATE: JUL 17, 2024@13:30:58 AUTHOR: MINERVA POWELL EXP COSIGNER: ELISABETH VERDUGO URGENCY: STATUS: COMPLETED INTERNAL MEDICINE PROGRESS NOTE MEDICINE TEAM 2 B Last Admission: 07/16/24 11:33:02 pm Admit Dx: INTRACTABLE SCIATICA. Interval History: -Patient experiencing acute pain overnight -Agitated and tearful this morning, shaking in pain from left leg -Neurology consulted and upon evaluation noting no organic cause based on prior workup -Psychiatry consulted and recommending titrating pramipexol down in favor of neuromodulator such as gabapentin or lyrica, patient not wanting to change psyschotropics at this time - Pain much more controlled on oxycodone adn tylenol Active Inpatient Medications: 1) HYDROMORPHONE INJ,SOLN IVP ONE-TIME 1MG/0.5ML 2) KETOROLAC (IV) INJ IVP ONE-TIME 30MG/1ML 3) HYDROMORPHONE INJ,SOLN IVP Q6H PRN 1MG/0.5ML 4) OXYCODONE (IMMEDIATE RELEASE) UD TAB PO Q4H PRN 10MG 5) OXYCODONE (IMMEDIATE RELEASE) UD TAB PO Q4H PRN 5MG 6) ENOXAPARIN INJ SQ QDAILY 40MG/0.4ML 7) LEVOTHYROXINE (SYNTHROID) TAB PO QAMAC 175MCG 8) PRAMIPEXOLE TAB PO BID 1.5MG 9) ONDANSETRON TAB PO Q6H PRN 4MG 10) TIZANIDINE TAB PO TID PRN 4MG 11) TRAZODONE TAB PO QHS PRN 100MG 12) DULOXETINE CAP,EC PO QDAILY 13) ACETAMINOPHEN TAB PO Q8H 1000MG 14) FOLIC ACID TAB PO QDAILY 1MG 15) LIDOCAINE 5% PATCH TRANSDERMAL QDAILY 2 PATCHES 16) DIPHENHYDRAMINE CAP,ORAL PO QID PRN 25MG Life Sustaining Treatment Orders Vital Signs: Pulse: 50 (07/17/2024 09:40) BP: 111/70 (07/17/2024 09:40) RESP: 18 (07/17/2024 09:40) Pain: 10 (07/17/2024 08:23) Tmax: 98.8 F [37.1 C] (07/17/2024 09:40) Weight: 194.8 lb [88.36 kg] (07/16/2024 23:43) PHYSICAL EXAM: General: pleasant female, tearful, in visible pain, NAD HEENT: oral mucosa moist Lungs: CTAB CVS: RRR Abdomen: Nondistended, nontender Ext: No lower extremity edema, RLE exam normal, LLE trembling with exertion, 5/5 strength, tender to light and deep touch mostly in areas of posterior lateral calf, medial knee (patellar region), left buttocks Neuro: AOx4, no focal deficits noted Recent Labs: BASIC METABOLIC PANEL: SODIUM 144 mEq/L 07/17/2024 06:00 POTASSIUM 3.5 mEq/L 07/17/2024 06:00 CHLORIDE 109 H mEq/L 07/17/2024 06:00 UREA NITROGEN 14.1 mg/dL 07/17/2024 06:00 CREATININE 0.89 mg/dL 07/17/2024 06:00 CALCIUM 9.7 mg/dL 07/17/2024 06:00 CARBON DIOXIDE 24 mEq/L 07/17/2024 06:00 GLUCOSE 86 mg/dL 07/17/2024 06:00 EGFR (CKD-EPI 2020) 80.4 07/17/2024 06:00 WBC: 6.0 10*3/uL (07/17/24 06:00) HCT: 41.6 % (07/17/24 06:00) HGB: HGB 13.1 g/dL 07/17/2024 06:00 Plt: PLT 245 10*3/uL 07/17/2024 06:00 CK-MB: ____ TROPONIN I HISTORY: No data available Other Labs and Data: Assessment/Plan: 48-year-old female with PMH of fibromyalgia, chronic pain syndrome, chronic left leg pain presenting with acute on chronic left leg pain of unknown origin #Acute on chronic left lower leg pain #hx of chronic left leg sciatica - pain is difficult to localize as is present in 3 distinct areas, present for over 20 years but now acutely worsened - EMG previously negative, MRI lumbar spine in past with possible perineal nerve injury - Has hx of excercise induced compartment syndrome s/p fasciotomy x2, unclear if has residual neuropathy of sorts contributing, otherwise has fibromyalgia and may have complex chronic pain syndrome with no organic cuase PLAN: - Oxycodone initially at q4prn, now will do 5/10 q6 prn for mod/severe pain - Tylenol 1000 TID scheduled - Ketorolac 30mg x1 - PT consult for mobilization - Neurology consulted, appreciate recs - recommending no further workup - Psychaitry consulted, appreciate recs - recommending iron studies, vitamin levels, outpatient psychiatry, switching pramipexole to ada for RLS, no change in psychotropics at this time #insomnia #RLS - Home regimen: pramipexole 1.5 BID PLAN: - Vitmain D and iron studies tomorrow - Per psych and neurology, reduce pramipexole to 1mg BID for 3 days and then 0.5mg BID for 3 days then can stop - Initiate gabepntin 100mg qHS for RLS and neuromodulation for pain control - Continue trazadone 100mg qHS and tizanidine qHS #Depresison #Anxiety with hx of panic attacks - Home medications: Duloxetine 90mg qHS PLAN: - Continue duloxetine 90mg qHS - Outpatient psych appointment set for next Monday #Obesity with hx Gastric sleeve 05/2023 #Hx of DM - Patient was previously on metformin but it was stopped. - Her most recent A1C was 5.7 05/2024. - Weight loss of 97 lbs over 1 year PLAN: - Rechecking vitamin D, iron studies, B12 and folate tomorrow #Hypothyroidism: TSH 3.7 on admission, will continue home levothyroxine 175mcg daily #Fibromylgia: not on medications specifically for this outpatient Code Status: FULL Diet: Regular DVT ppx: Lovenox Access: PIV Urinary: Spontaneous Dispo/Social: Able to go home has and daughter, barrier is pain control, seems like no real intervention will occur this admission /madalyn/ Minerva Powell MD Resident Physician Signed: 07/17/2024 15:46 /madalyn/ ELISABETH VERDUGO M.D. STAFF PHYSICIAN Cosigned: 2024 08:47 MINERVA POWELL [facility] Jul 17, 2024 12:05 PM INTERNAL MEDICINE INPATIENT NOTE: LOCAL TITLE: MEDICINE GENERAL INPATIENT NOTE STANDARD TITLE: INTERNAL MEDICINE INPATIENT NOTE DATE OF NOTE: JUL 17, 2024@12:05 ENTRY DATE: JUL 17, 2024@12:05:51 AUTHOR: TIM MADDOX COSIGNER: ELISABETH VERDUGO URGENCY: STATUS: COMPLETED MEDICINE GENERAL INPATIENT NOTE Has ADDENDA MEDICINE INPATIENT GENERAL NOTE STL 48 year old FEMALE admitted on Jun 23:33 for Last Admission: 07/16/24 11:33:02 pm Admit Dx: INTRACTABLE SCIATICA. Subjective Complaints: pain of the left posterior calf, left knee, and left hip, headache Major events over the last day: received 1mg IV dilauded, successful in aborting pain but pain returned before next dose was due, pain 08/01 Active Inpatient Medications: 1) HYDROMORPHONE INJ,SOLN IVP ONE-TIME 1MG/0.5ML 2) KETOROLAC (IV) INJ IVP ONE-TIME 30MG/1ML 3) HYDROMORPHONE INJ,SOLN IVP Q6H PRN 1MG/0.5ML 4) OXYCODONE (IMMEDIATE RELEASE) UD TAB PO Q4H PRN 10MG 5) OXYCODONE (IMMEDIATE RELEASE) UD TAB PO Q4H PRN 5MG 6) ENOXAPARIN INJ SQ QDAILY 40MG/0.4ML 7) LEVOTHYROXINE (SYNTHROID) TAB PO QAMAC 175MCG 8) PRAMIPEXOLE TAB PO BID 1.5MG 9) ONDANSETRON TAB PO Q6H PRN 4MG 10) TIZANIDINE TAB PO TID PRN 4MG 11) TRAZODONE TAB PO QHS PRN 100MG 12) DULOXETINE CAP,EC PO QDAILY 13) ACETAMINOPHEN TAB PO Q8H 1000MG 14) FOLIC ACID TAB PO QDAILY 1MG 15) LIDOCAINE 5% PATCH TRANSDERMAL QDAILY 2 PATCHES 16) DIPHENHYDRAMINE CAP,ORAL PO QID PRN 25MG Vital Signs: Pulse: 50 (07/17/2024 09:40) BP:111/70 (07/17/2024 09:40) RESP:18 (07/17/2024 09:40) Pain:10 (07/17/2024 08:23) Tmax: 98.8 Pulse Oximetry: 94-97% Weight: 194.8 lb [88.36 kg] (07/16/2024 23:43) Intake/Output: not recorded PHYSICAL EXAM: General: visibly in destress, tearful, awake and alert HEENT: eye tearing, EOM intact, no LAD, mucous membranes moist Lungs: clear to ausculation bilaterally with good air flow CVS: normal S1, S2, regular rate and rythym. Abdomen: soft, nontender, nondistended, normal BS Ext: no swelling or erythema, no difference in temperature of the legs, DP pulses intact bilaterally Neuro: patient reports instability of the left leg but intact strength and sensation Skin/ulcers: none seen Other: PIV in place Recent Labs: BASIC METABOLIC PANEL: SODIUM 144 mEq/L 07/17/2024 06:00 POTASSIUM 3.5 mEq/L 07/17/2024 06:00 CHLORIDE 109 H mEq/L 07/17/2024 06:00 UREA NITROGEN 14.1 mg/dL 07/17/2024 06:00 CREATININE 0.89 mg/dL 07/17/2024 06:00 CALCIUM 9.7 mg/dL 07/17/2024 06:00 CARBON DIOXIDE 24 mEq/L 07/17/2024 06:00 GLUCOSE 86 mg/dL 07/17/2024 06:00 EGFR (CKD-EPI 2020) 80.4 07/17/2024 06:00 WBC: 6.0 10*3/uL (07/17/24 06:00) HCT: 41.6 % (07/17/24 06:00) HGB: HGB 13.1 g/dL 07/17/2024 06:00 Plt: PLT 245 10*3/uL 07/17/2024 06:00 CK-MB: ____ TROPONIN I HISTORY: No data available Other Labs and Data: none Assessment/Plan: Patient is a 48 year old woman with known chronic pain and recent workup that was negative for any structural or neurologic pathologies. The pain that she is currently presenting with is different from her baseline chronic pain in both severity and quality. #Sciatica #Intractable left leg pain #history of fasciotomy #Suspected cellulitis - Previous extensive workup has been negative (refer to HPI on admission). - Tylenol scheduled q6hr - Oxycodone 10 mg q4hr for severe pain, oxycodone 5mg q4hr for moderate pain - PT/OT consult, appreciate recs - consult neurology, appreciate recs #Fibromylgia #RLS #Depresison #Anxiety #Insomina - Continue home pramipexol, duloxetine, Trazadone, Tizanidine - Continue Outpt psych and therpay as the patient was clearly in discomfort and anxious. - consult psych while inpatient, appreciate recs #Gastric sleeve #High BMI #Hx od DM - most recent A1C was 5.7 05/2024, not currently on any diabetes medications - Weight loss of 97 lbs. - Referral to nutrition on discharge to help maintaining current weight and potentially lose more weight. - continue home supplements on D/C. #Hypothyroidism - Home Levothyroxine. - repeat TSH 3.8 Metcalf: No Lines No VTE prophylaxis: othernone Life Sustaining Treatment Orders Disposition: Living arrangements prior to admission: living with at home Anticipate discharge date:Jun Anticipate discharge to: Prior Living Situation /madalyn/ TIM MADDOX Medical Student Signed: 07/17/2024 12:17 /madalyn/ ELISABETH VERDUGO M.D. STAFF PHYSICIAN Cosigned: 07/17/2024 12:56 07/17/2024 ADDENDUM STATUS: COMPLETED THIS IS A STUDENT NOTE, NOT FOR OFFICIAL USE /madlayn/ ELISABETH VERDUGO M.D. STAFF PHYSICIAN Signed: 07/17/2024 12:56 TIM MADDOX [facility] Jul 17, 2024 10:00 AM NURSING INPATIENT NOTE: LOCAL TITLE: [facility] NURSING FREQUENT DOCUMENTATION STANDARD TITLE: NURSING INPATIENT NOTE DATE OF NOTE: JUL 17, 2024@10:00 ENTRY DATE: JUL 17, 2024@13:26:41 AUTHOR: NARCISO COVINGTON EXP COSIGNER: URGENCY: STATUS: COMPLETED Version 2.4 Charting in accordance with [place] APPROVED [place] STANDARD (INAES) ACUTE INPATIENT/REHABILITATION NURSING ADMISSION SCREENING, ASSESSMENT, AND STANDARDS OF CARE ==== NATIONAL EARLY WARNING SCORE (NEWS) ==== The vital signs below were used for scoring: Temperature: 98.8 Pulse: 50 Blood Pressure: 111/70 Respiration: 18 Pulse Oximetry: 94 The NEWS total is 1. 1. Temperature (C/F): Score = 0 36.1 - 38.0 C (96.9 - 100.4 F) 2. Pulse: Score = 0 51-90 3. Respirations: Score = 0 12-20 4. Blood Pressure (Only Systolic BP, mmHg): Score = 0 111-219 5. Pulse Oximetry: Score = 1 94% - 95% 6. Supplemental oxygen in use: Score = 0 No 7. AVPU: Score = 0 Alert /es/ NARCISO COVINGTON BSN, RN REGISTERED NURSE Signed: 07/17/2024 13:28 NARCISO COVINGTON [facility] Jul 17, 2024 08:40 AM NURSING NOTE: LOCAL TITLE: [facility] SKIN INSPECTION/ASSESSMENT STANDARD TITLE: NURSING NOTE DATE OF NOTE: JUL 17, 2024@08:40 ENTRY DATE: JUL 17, 2024@13:25:14 AUTHOR: NARCISO COVINGTON EXP COSIGNER: URGENCY: STATUS: COMPLETED Assessment Type: SKIN REINSPECTION/REASSESSMENT SKIN INSPECTION: Skin Color: Usual for ethnicity Skin Temperature: Warm Skin Moisture: Normal Skin Turgor: Elastic (normal/immediate) Hugo Skin Assessment: The patient's Hugo Scale Score is 23. The patient is considered not at risk for development of pressure ulcers/injuries. Sensory perception -- ability to respond meaningfully to pressure-related discomfort No impairment. Moisture -- degree to which skin is exposed to moisture Rarely moist. Activity -- ability to change and control body position Walks frequently. Mobility -- ability to change and control body position No limitation. Nutrition -- usual food intake patterns Excellent. Friction and shear No apparent problem. INTERVENTIONS: No change in previous interventions as listed below 07/17/2024 [facility] Pressure Injury Int Not Needed RISK FACTORS THAT INCREASE RISK FOR DEVELOPING PRESSURE INJURIES The patient/resident does not have any additional risk factors. SKIN ALTERATIONS: Pressure Ulcer/Injury Documentation from the past year: No data available SKIN ALTERATIONS: Wound Documentation from the past year: No data available for: Skin Integrity - Wound Skin Integrity - Wound Second Skin Integrity - Wound Third Skin Integrity - Wound Fourth Skin Integrity - Wound Fifth Skin Integrity - Wound Additional SKIN INTEGRITY: Intact /es/ NARCISO DENTON, RN REGISTERED NURSE Signed: 07/17/2024 13:26 NARCISO COVINGTON [facility] Jul 17, 2024 08:15 AM NURSING INPATIENT NOTE: LOCAL TITLE: [facility] ACUTE INPATIENT NSG SHIFT ASSESSMENT STANDARD TITLE: NURSING INPATIENT NOTE DATE OF NOTE: JUL 17, 2024@08:15 ENTRY DATE: JUL 17, 2024@13:18:32 AUTHOR: NARCISO COVINGTON EXP COSIGNER: URGENCY: STATUS: COMPLETED Version 2.2 Charting in accordance with [facility] [place] [facility] [place] STANDARD ([facility]) ACUTE INPATIENT/REHABILITATION NURSING ADMISSION SCREENING, ASSESSMENT, AND STANDARDS OF CARE ==== ASSESSMENT ==== ==== HANDOFF ==== Bedside report and handoff completed Safety check completed ==== PAIN ASSESSMENT ==== Patient's acceptable pain goal: Are you currently experiencing pain? Yes - DVPRS scale used to assess Location: left leg Defense and Veterans Pain Rating Scale (DVPRS): ==== CRISTOBAL FALL SCALE & TIPS PROGRAM ==== Cristobal Fall Scale: The Cristobal Fall scale was performed and score was 100. This is indicative of high risk for falls. History of falling: immediate or within 3 months? Yes Secondary diagnosis: Yes Ambulatory aid: Crutches/cane(s)/walker Intravenous therapy/Heparin lock: Yes Gait/Transferring: Weakness Mental Status: Overestimates/forgets limitations ==== ENVIRONMENTAL SAFETY MANAGEMENT ==== Implemented safety standards of care: -[place] to unit & environment -Adequate room lighting -Bed in low and locked position -Call light within reach -Personal items within reach -Traffic path in room free of clutter -Non-slip footwear -Upper/half length side rails up for bed mobility -Sensory aids within reach -Encourage patient to utilize sensory support ==== NEUROLOGICAL ==== Neurological Orientation: Oriented x4 Level of Consciousness (AVPU): Alert = Appears aware of and responsive to the environment on their own. Follows commands, opens eyes spontaneously, and tracks objects. Affect/behavior: Cooperative Calm === ASPIRATION RISK ASSESSMENT AND SWALLOW SCREEN === Aspiration Risk(s): Screening complete. No aspiration risk identified. Bedside Swallow Screen not indicated. ==== NEUROMUSCULAR/NEUROVASCULAR EXTREMITIES ASSESSMENT ==== Strength: Riding Teacher Bilateral: Strong Upper Extremity Bilateral: Full strength Lower Extremity Bilateral: Full strength Sensation: Upper Extremity Sensation Bilateral: Intact Lower Extremity Sensation Bilateral: Intact Temperature: Upper Extremity Temperature Bilateral: Warm Lower Extremity Temperature Bilateral: Warm ==== CARDIOVASCULAR ==== Heart Rate/Rhythm (without youth nutritional monitor): Regular Capillary Refill: All 4 extremities, less than or equal to 3 seconds. Peripheral Pulses: All 4 extremities, 3+ normal. Edema: None ==== RESPIRATORY ==== Respirations: Unlabored Pattern: Regular Breath Sounds Auscultated: Anterior only Left Upper Lobe: Clear Right Upper Lobe: Clear Right Middle Lobe: Clear Left Lower Lobe: Clear Right Lower Lobe: Clear ==== GASTROINTESTINAL ==== Last bowel movement: 07/17/24 Elimination: Continent Abdominal Description: Protuberant (central obesity) Palpation: Soft, Non-tender Bowel Sounds: RUQ: Active LUQ: Active RLQ: Active LLQ: Active ==== GENITOURINARY ==== Elimination: Continent === INTEGUMENTARY/SKIN/WOUND - (INCLUDING HUGO) SEE NOTE: VAAES SKIN INPECTION/ASSESSMENT === ==== ACTIVITIES OF DAILY LIVING ==== Hygiene ADLs: Oral Care: Non-ventilator patient: Patient teeth brushed: Patient declined declined due to pain ==== IV LINES ==== Peripheral IV: Line #1: Assessment: Location: Right, Hand Gauge: 20 Dressing Condition: Clean, dry, intact Site Condition: No redness, swelling, pain Line Status: Flushed ==== PSYCHOSOCIAL ==== Type of Emotional Support Provided: 1:1 discussion, Hospitalization discussion, Treatment discussion /es/ NARCISO DENTON RN REGISTERED NURSE Signed: 07/17/2024 13:24 NARCISO COVINGTON [facility] Jul 17, 2024 07:45 AM NURSING INPATIENT NOTE: LOCAL TITLE: [facility]AAES ACUTE INPATIENT NSG SHIFT ASSESSMENT STANDARD TITLE: NURSING INPATIENT NOTE DATE OF NOTE: JUL 17, 2024@07:45 ENTRY DATE: JUL 17, 2024@07:45:57 AUTHOR: SANJUANITA REYNOLDS COSIGNER: URGENCY: STATUS: COMPLETED Version 2.2 Charting in accordance with IN APPROVED [place] STANDARD (VAAES) ACUTE INPATIENT/REHABILITATION NURSING ADMISSION SCREENING, ASSESSMENT, AND STANDARDS OF CARE ==== REASSESSMENT ==== ==== PAIN ASSESSMENT ==== Patient's acceptable pain goal: 3 Sometimes distracts me Are you currently experiencing pain? Yes - DVPRS scale used to assess Location: left leg Defense and Veterans Pain Rating Scale (DVPRS): 5 Interrupts some activities Pain Score: 5 ==== NEUROLOGICAL ==== Neurological Orientation: Oriented x4 Level of Consciousness (AVPU): Alert = Appears aware of and responsive to the environment on their own. Follows commands, opens eyes spontaneously, and tracks objects. ==== NEUROMUSCULAR/NEUROVASCULAR EXTREMITIES ASSESSMENT ==== Strength: Riding Teacher Bilateral: Strong Upper Extremity Bilateral: Lower Extremity Bilateral: Full strength ==== CARDIOVASCULAR ==== Heart Rate/Rhythm (without youth nutritional monitor): Regular Capillary Refill: All 4 extremities, less than or equal to 3 seconds. Edema: None ==== GASTROINTESTINAL ==== ==== GENITOURINARY ==== Elimination: Continent === INTEGUMENTARY/SKIN/WOUND - (INCLUDING HUGO) SEE NOTE: VAAES SKIN INPECTION/ASSESSMENT === /es/ SANJUANITA REYNOLDS BSN RN REGISTERED NURSE Signed: 07/17/2024 07:49 SANJUANITA REYNOLDS [facility] Jul 17, 2024 03:18 AM INTERNAL MEDICINE H & P NOTE: LOCAL TITLE: MEDICINE HISTORY AND PHYSICAL STL STANDARD TITLE: INTERNAL MEDICINE H & P NOTE DATE OF NOTE: JUL 17, 2024@03:18 ENTRY DATE: JUL 17, 2024@03:18:27 AUTHOR: REMINGTON COTA COSIGNER: ELISABETH VERDUGO URGENCY: STATUS: COMPLETED MEDICINE HISTORY AND PHYSICAL STL Has ADDENDA CC: Left hip and leg pain. HPI: [place] is a 48-year-old female with past medical history of migraines, fibromyalgia, chronic pain syndrome, cervicalgia, lumbar DDD, arthritis presenting with left calf tenderness. The patient reporting severe left calf pain associated with left hip and knee pain. The aptient reports she has been dealing with her symptoms for years. She reports most recently she was seen in the ED on 07/08 for the same symptoms and she was prescribed steroids and oxycodone. However as per the ED note 07/08 the patient was not satisified with the plan and she requested IVF and IV pain meds. today, the patient reported she feels her pain is severe and PO medications does not work well and she prefers IV pain medications as they are faster in aborting her symptoms. I explained to her that IVF are not indicated in her case today and she was agreable to not getting IVF. I spent some time explaining to the patient that her previous work-up has been negative and that she does not have DVT or any infection nor a bulging disc. The patient was relived by knowing that her symptoms are not due to a life- threatening conditions. During my interview the patient was clearly in discomfort/pain and she was shaking and tearful. I went with her through other potential lifestyle modification including diet changes and working out which can provide some relief of her calf pain in addition to her other chronic comorbidities including fibromylagia, RLS, anxiety and depression. To note the patient had an anterior and lateral compartment release of the left leg in 1996 and repeat in 2007. She describes that at both times she was having severe calf pain and was not able to walk on it to the point where it became cold and blue. She mentioned that at that time they did a test to confirm the diagnosis. However, it is unclear as per chart review if this was a true compartment syndrome or if she was describing more PVD. To note juan was evaluated extensively for similar symptoms in the past in multiple different hospitals. Juan had a spine MRI in 06/27/2024 which did not show any significant loss of vertebral height, diffuse disc bulging or focal herniation. EMG 05/21/2024 was negative. Spine Xray 03/[address] angiography in lower extremities 10/2023 CT neck 12/2022 negative. US bilateral lower extremities 10/[address] head 12/2023 negative. Hepatobiliary imaging and US abdomen were negative. Upon admission, her vitals were significant for elevated BP 151/91, and tachycardia of 108, test was negative, labs were significant for elevated urine protein 30. In the ED Left tibia and fibula Xray with no acute fractures or any deformities. US of lower extremities with no evidence of DVT. There was suspicion of cellulitis in her left calf and she recieved CTX in the ED. The patient underwent a recent gastric sleeve in 05/2024 and loss 97 lbs afterwards. I congratulated the patient on her achievement. Past Medical, Surgical and Psychiatric History: Problem List: 1) Family history of ischemic heart disease (SNOMED CT 286892092) 2) Migraine (SNOMED CT 20865621) 3) Vitamin D deficiency 4) Hypothyroidism 5) Low back pain 6) Depression 7) Mastodynia 8) Lumbar radiculopathy 9) Irritable bowel syndrome characterized by alternating bowel habit 10) Fibromyalgia 11) Chronic pain in female pelvis 12) Kidney stone 13) Insomnia 14) Compartment syndrome 15) Obesity (SCT [id number]) 16) Arthritis 17) Intermittent palpitations 18) Chronic obstructive lung disease 19) Obstructive sleep apnea of adult 20) Poor pelvic muscle tone 21) Cervicalgia 22) Bacterial cellulitis 23) Overactive bladder Medications: Active Outpatient Medications (excluding Supplies): Issue Date Status Last Fill Active Outpatient Medications Refills Expiration 1) CYANOCOBALAMIN 1000MCG/ML INJ Qty: 3 ACTIVE Issu:11-24-23 for 90 days Sig: INJECT 1000MCG/1ML Refills: 1 Last:07-14-24 INTRAMUSCULARLY EVERY MONTH FOR Expr:11-24-24 VITAMIN B12 SUPPLEMENTATION 2) DULOXETINE HCL 30MG EC CAP Qty: 90 for ACTIVE Issu:05-22-24 90 days Sig: TAKE ONE CAPSULE BY Refills: 0 Last:05-23-24 MOUTH ONCE A DAY DO NOT ABRUPTLY Expr:08-20-24 DISCONTINUE MEDICATION. TO BE TAKEN ALONG WITH 60MG FOR TOTAL OF 90MG DAILY 3) DULOXETINE HCL 60MG EC CAP Qty: 90 for ACTIVE (S) Issu:05-22-24 90 days Sig: TAKE ONE CAPSULE BY Refills: 2 Last:08-11-24 MOUTH ONCE A DAY DO NOT ABRUPTLY Expr:05-23-25 DISCONTINUE MEDICATION. TO BE TAKEN ALONG WITH 30MG FOR TOTAL OF 90MG DAILY 4) HYDROCODONE 5MG/ACETAMINOPHEN 325MG TAB ACTIVE Issu:07-08-24 Qty: 8 for 2 days Sig: TAKE 1 TABLET Refills: 0 Last:07-08-24 BY MOUTH EVERY 6 HOURS NEEDED FOR Expr:08-07-24 SEVERE PAIN CAUTION: DO NOT EXCEED 4000MG PER DAY ACETAMINOPHEN (APAP) FROM ALL MEDS. 5) LEVOTHYROXINE NA (SYNTHROID) 175MCG TAB ACTIVE Issu:06-10-24 Qty: 90 for 90 days Sig: TAKE ONE Refills: 3 Last:06-10-24 TABLET BY MOUTH EVERY MORNING BEFORE A Expr:06-11-25 MEAL FOR HYPOTHYROIDISM TAKE 30 MINUTES BEFORE FOOD. TAKE SEPARATELY FROM ALL OTHER MEDICATIONS. 6) LIDOCAINE 5% OINT Qty: 35 for 30 days ACTIVE Issu:11-24-23 Sig: APPLY SPARINGLY TO AFFECTED Refills: 5 Last:11-26-23 AREA(S) ONCE A DAY NEEDED FOR PAIN Expr:11-24-24 (EXTERNAL USE ONLY) (WASH HANDS THOROUGHLY AFTER USE) 7) METFORMIN HCL 1000MG TAB Qty: 90 for 90 ACTIVE Issu:01-31-24 days Sig: TAKE ONE-HALF TABLET BY Refills: 0 Last:04-21-24 MOUTH TWICE A DAY WITH MEALS TAKE WITH Expr:01-31-25 FOOD. AVOID ALCOHOL. DISCONTINUE BEFORE GETTING XRAY DYE. 8) METHYLPREDNISOLONE 4MG TAB DOSEPAK,21 ACTIVE Issu:07-08-24 Qty: 1 for 5 days Sig: TAKE TABLETS Refills: 0 Last:07-08-24 BY MOUTH DIRECTED TAKE 6 TABLETS BY Expr:08-07-24 MOUTH ON DAY ONE, THEN DECREASE BY ONE TABLET DAILY UNTIL GONE. TAKE WITH FOOD. 9) ONDANSETRON HCL 8MG TAB Qty: 12 for 6 ACTIVE Issu:07-08-24 days Sig: TAKE ONE-HALF TABLET BY Refills: 0 Last:07-08-24 MOUTH EVERY 6 HOURS NEEDED FOR Expr:08-07-24 NAUSEA/VOMITING 10) PRAMIPEXOLE DIHYDROCHLORIDE 1.5MG TAB ACTIVE Issu:11-24-23 Qty: 180 for 90 days Sig: TAKE ONE Refills: 1 Last:07-14-24 TABLET BY MOUTH TWICE A DAY FOR Expr:11-24-24 RESTLESS LEG SYNDROME 11) TIZANIDINE HCL 4MG TAB Qty: 90 for 30 ACTIVE Issu:05-21-24 days Sig: TAKE ONE TABLET BY MOUTH Refills: 1 Last:07-14-24 THREE TIMES A DAY NEEDED FOR Expr:05-22-25 SPASTICITY 12) TRAZODONE HCL 100MG TAB Qty: 90 for 90 ACTIVE Issu:01-26-24 days Sig: TAKE ONE TABLET BY MOUTH AT Refills: 1 Last:07-16-24 BEDTIME NEEDED FOR INSOMNIA Expr:01-26-25 Life Sustaining Treatment Orders Medications were reviewed with the patient/caregiver and discrepancies resolved. Allergies: VITAMIN B12 1000MCG, PANTOPRAZOLE, AMOXICILLIN, FLONASE NASAL SOLUTION PREGABALIN, GABAPENTIN, METHOCARBAMOL Social History: Denies smoking, alcohol. Reports Family History: Review of Systems: Review of systems reviewed in detail and negative except as noted in HPI and below. Constitutional: HEENT: None CV: None Pulm: None GI: Constipation : None Neuro: Radiculopathy. Derm: None MSK: Left calf pain, fibromylgia with point tenderness. Heme: None Psych: Anxiety, depression. Physical Exam: Vitals: (most recent, as listed in the electronic record): B/P: 131/87 (07/16/2024 23:42) Pulse: 94 (07/16/2024 23:42) Temperature: 98.1 F [36.7 C] (07/16/2024 23:42) Weight: 194.8 lb [88.36 kg] (07/16/2024 23:43) Height: 62 in [157.5 cm] (11/24/2023 15:33) BMI: 35.7 Pain: 2 (07/17/2024 02:18) (0-10 scale) PHYSICAL EXAM: General: Teraful, in pain. HEENT: atraumatic, symmetric, sclera anicteric, no pharyngeal erythema/exudate Neck: No JVD, no LAD CV: RRR, normal S1/S2, no murmurs Lungs: CTAB, no rales Abd: nontender, nondistended, nml bowel sounds Skin: no rashes or lesions, warm, dry Neuro: A&O x3, follows commands, no focal deficits, CN II-XII grossly in tact Ext: 5/5 strength in all extremities, 2+ pulses, good sensation throughout MSK: point tenderness in left calf, point tenderness in her left hip. Pain elicited by any movement of the left lower extremity. Labs: CBC: WBC 6.3 10*3/uL 07/16/2024 14:30 RBC 4.76 10*6/uL 07/16/2024 14:30 HGB 13.9 g/dL 07/16/2024 14:30 HCT 41.4 % 07/16/2024 14:30 MCV 87.0 fL 07/16/2024 14:30 MCH 29.2 pg 07/16/2024 14:30 MCHC 33.6 g/dL 07/16/2024 14:30 RDW 13.1 % 07/16/2024 14:30 PLT 298 10*3/uL 07/16/2024 14:30 MPV 11.3 H fL 07/16/2024 14:30 NEUTROPHILS, AUTO % 63 % 07/16/2024 14:30 LYMPHOCYTES, AUTO % 30 % 07/16/2024 14:30 MONOCYTES, AUTO % 5 % 07/16/2024 14:30 EOSINOPHILS, AUTO % 1 % 07/16/2024 14:30 BASOPHILS, AUTO % 1 % 07/16/2024 14:30 NEUTROPHILS, ABSOLUTE 3.98 10*3/uL 07/16/2024 14:30 LYMPHOCYTES, ABSOLUTE 1.92 10*3/uL 07/16/2024 14:30 MONOCYTES, ABSOLUTE 0.30 10*3/uL 07/16/2024 14:30 EOSINOPHILS, ABSOLUTE 0.03 10*3/uL 07/16/2024 14:30 BASOPHILS, ABSOLUTE 0.07 10*3/uL 07/16/2024 14:30 CMP: SODIUM 143 mEq/L 07/16/2024 14:30 POTASSIUM 4.0 mEq/L 07/16/2024 14:30 CHLORIDE 108 H mEq/L 07/16/2024 14:30 UREA NITROGEN 15.1 mg/dL 07/16/2024 14:30 CREATININE 0.86 mg/dL 07/16/2024 14:30 CALCIUM 9.9 mg/dL 07/16/2024 14:30 PROTEIN 7.2 g/dL 07/16/2024 14:30 ALBUMIN 4.2 g/dL 07/16/2024 14:30 ALKALINE PHOSPHATASE 84 U/L 07/16/2024 14:30 ALT/SGPT 12 U/L 07/16/2024 14:30 AST/SGOT 15 U/L 07/16/2024 14:30 TOTAL BILIRUBIN 0.5 mg/dL 07/16/2024 14:30 CARBON DIOXIDE 22 mEq/L 07/16/2024 14:30 GLUCOSE 103 H mg/dL 07/16/2024 14:30 EGFR (CKD-EPI 2020) 83.8 07/16/2024 14:30 TROPONIN: No TROPONIN EO data found U/A: URINE COLOR Yellow 07/16/2024 16:15 APPEARANCE Clear 07/16/2024 16:15 U.PH 7.0 07/16/2024 16:15 U.BILIRUBIN Negative mg/dL 07/16/2024 16:15 U.NITRITE Negative mg/dL 07/16/2024 16:15 URINE RBC/HPF 44 H /HPF 07/16/2024 16:15 URINE WBC/HPF 2 /HPF 07/16/2024 16:15 BACTERIA RARE /HPF 12/31/2023 21:27 SQUAMOUS EPITH. 1 /HPF 07/16/2024 16:15 MUCUS OCC /LPF 07/16/2024 16:15 HYALINE CASTS 1 /LPF 07/16/2024 16:15 CA OXYLATE CRYSTALS OCC /HPF 12/31/2023 21:27 U.ACID CRYSTALS MOD /HPF 11/19/2023 19:20 PT/INR: 11.4 sec (11/19/23 19:20) PTT: 1.0 INR (11/19/23 19:20) Imaging: Impression for CHEST X-RAY, 2 VIEWS, 02/26/24, case [id number] No acute disease I, Satya Saxena, have reviewed the images and report and concur with these findings. Assessment/Plan: #Sciatica #Intractable left leg pain #history of fasciotomy #Suspected cellulitis - Previous extensive w-u has been negative (refer to HPI). - Tylenol scheduled - Dilaudid PRN - Lifestyl modification - Encouraged patient to continue her journey of weight loss as it helps in reducing the pressur on her joints. - PT/OT consult. F-UI reccs. #Fibromylgia #RLS #Depresison #Anxiety #Insomina #Panick attack - Continue home pramipexol, duloxetine, Trazadone, Tizanidine - Lifestyle modification encouraged with diet and physical activity. - Continue Outpt psych and therpay as the patient was clearly in discomfort and anxious. #Gastric sleeve #High BMI #Hx od DM - Patient was previously on metformin but it was stopped. - Her most recent A1C was 5.7 05/2024. - Weight loss of 97 lbs. - Refferal to nutrition on discharge to help maintaining current weight and potentially lose more weight. - continue home supplements on D/C. #Hypothyroidism - Home Levothyroxine. - Most recent TSH 05/2024 - Repeat TSH and follow-up with PCP for dose adjustment. Is the patient 65 or older? No TOBACCO CESSATION SCREEN AND COUNSELING Has patient used any form of tobacco during the past 30 days? ORYX tobacco: patient has not used tobacco during past 30 days. SCREEN FOR ALCOHOL (AUDIT-C) AUDIT-C An alcohol screening test (AUDIT-C) was negative (score=0). 1. How often did you have a drink containing alcohol in the past year? Consider a drink to be a 12 ounce can or bottle of regular beer, 8 ounces of malt liquor, a 5 ounce glass of table wine, or a 1.5 ounce shot of liquor (like scotch, gin, or vodka). Never 2. How many drinks containing alcohol did you have on a typical day when you were drinking in the past year? Response not required due to responses to other questions. 3. How often did you have 4 or more drinks on one occasion in the past year? Response not required due to responses to other questions. The material part of the above assessment and plans was discussed with the patient and/or his/her family members who agreed and had no further questions. Total time spent: 35 Minutes /madalyn/ REMINGTON ULLOA AE Resident Physician Signed: 07/17/2024 03:55 /madalyn/ ELISABETH VERDUGO M.D. STAFF PHYSICIAN Cosigned: 07/17/2024 08:49 07/17/2024 ADDENDUM STATUS: COMPLETED I have independently seen and examined the patient on the date of this note. I have reviewed the chart, including labs and imaging findings, and agree with the management as outline in this progress note. Exceptions and/or additional notes, if any, are listed below. Ms. Nunes is a 48 year old with history of Migraines, Fibromyalgia, peroneal nerve weakness, cervicalgia, lumbar DDD, chronic pain syndrome, arthritis. She presented with acute on chronic pain of the left leg. She was recently admitted last month with similar symptoms and has been seen outpatient by Dr. Whaley in neurology for EMG and Maycol Garcia in pain management clinic for similar symptoms in the past few months. On review of outpatient scripts has gotten multiple short courses of opiates of varying type and strength over the past year and a half and is on multiple psychiatric medications as well as numerous pain modulators. On exam, she was very drowsy but arousable following IV pain medication and unable to otherwise participate in exam, skin exam notable for no erythema, swelling, or warmth - no concern for cellulitis. #Acute on Chronic Pain of Left Leg #Fibromyalgia #Complex Chronic Pain Syndrome Asked Neurology to see as she was not seen in neurology clinic following EMG, no further recommendations from neurology. Have reached out to outpatient pain clinic providers to ensure close follow up. Will attempt multimodal approach to pain control with goal of avoiding opiates. /es/ ELISABETH VERDUGO M.D. STAFF PHYSICIAN Signed: 07/17/2024 14:17 REMINGTON [facility]OTA [facility] Jul 17, 2024 01:39 AM NURSING NOTE: LOCAL TITLE: [facility] PERSONAL EFFECTS [facility] STANDARD TITLE: NURSING NOTE DATE OF NOTE: JUL 17, 2024@01:39 ENTRY DATE: JUL 17, 2024@01:40:01 AUTHOR: SANJUANITA REYNOLDS EXP COSIGNER: URGENCY: STATUS: COMPLETED PERSONAL EFFECTS Hazardous Check: Advised of prohibited hazardous items, No hazardous items observed Medication Check: Denies medication on person Prosthetic Check: Glasses Personal Items: Patient chooses to keep belongings at bedside. Patient Valuables Observed: large brn purse, blk soft shoes, blk soft pant, soft over shirt, under shirt, bra, under panty, cell phone. /es/ SANJUANITA DENTON RN REGISTERED NURSE Signed: 07/17/2024 01:43 SANJUANITA REYNOLDS [facility] Jul 17, 2024 12:56 AM NURSING ADMISSION EVALUATION NOTE: LOCAL TITLE: [facility] ACUTE INPATIENT NSG ADMISSION SCREEN STANDARD TITLE: NURSING ADMISSION EVALUATION NOTE DATE OF NOTE: JUL 17, 2024@00:56 ENTRY DATE: JUL 17, 2024@00:57:06 AUTHOR: SANJUANITA REYNOLDS EXP COSIGNER: URGENCY: STATUS: COMPLETED === ALLERGY/ADVERSE DRUG REACTION (ADR) REVIEW (MRT5) === FACILITY ALLERGY/ADR -------- No Remote Allergy/ADR Data available for this patient [facility] AMOXICILLIN [facility] FLONASE NASAL SOLUTION [facility] GABAPENTIN [facility] METHOCARBAMOL [facility] PANTOPRAZOLE [facility] PREGABALIN [facility] VITAMIN B12 1000MCG Allergy/Adverse Drug Reaction Review to be conducted by: Nurse: Results of Allergy/ADR Review: Allergy/Adverse Drug Reaction list confirmed. == MEDICATION REVIEW (MRR1) == Did patient bring medication(s) from home? No Medication Review conducted by Nurse Results of Medication Review: Active Medication List: INCLUDED IN THIS LIST: Alphabetical list of active outpatient prescriptions [facility] from this [facility] (local) and dispensed from another [facility] or [facility] facility (remote) as well as inpatient orders (local pending and active), local clinic medications, locally documented non-VA medications, and local prescriptions that have or been discontinued in the past 90 days. Non-VA Meds Last Documented On: Sep 23, 2020 NOTE The display of VA prescriptions dispensed from another [place] or [facility] facility (remote) is limited to active outpatient prescription entries matched to National Drug File at the originating site and may not include some items such as investigational drugs, compounds, etc. NOT INCLUDED IN THIS LIST: Medications self-entered by the patient into personal health records (i.e. [employer]) are NOT included in this list. Non-VA medications documented outside this [place], remote inpatient orders (regardless of status) and remote clinic medications are NOT included in this list. The patient and provider must always discuss medications the patient is taking, regardless of where the medication was dispensed or obtained. INPT ACETAMINOPHEN 500MG TAB (Status=Active) 500MG BY MOUTH EVERY SIX HOURS Indication: FOR PAIN OUTPT ALPRAZOLAM 0.25MG TAB (Status = ) TAKE ONE TABLET BY MOUTH THREE TIMES A DAY NEEDED FOR ANXIETY Rx# [id number] Last Released: 04/18/24 Qty/Days Supply: Rx Expiration Date: 05/16/24 Refills Remainin Indication: FOR ANXIETY OUTPT BUPROPION HCL 150MG 12HR SA TAB (Status = Discontinued) TAKE ONE TABLET BY MOUTH TWICE A DAY FOR DEPRESSION SWALLOW WHOLE - DO NOT CRUSH OR CHEW. Rx# [id number] Last Released: 11/10/23 Qty/Days Supply: Rx Expiration Date: 05/24/24 Refills Remainin Indication: FOR DEPRESSION OUTPT CYANOCOBALAMIN 1000MCG/ML INJ (Status = Active) INJECT 1000MCG/1ML INTRAMUSCULARLY EVERY MONTH FOR VITAMIN B12 SUPPLEMENTATION Rx# [id number] Last Released: 04/18/24 Qty/Days Supply: Rx Expiration Date: 11/24/24 Refills Remainin Indication: FOR VITAMIN B12 SUPPLEMENTATION OUTPT CYCLOBENZAPRINE HCL 10MG TAB (Status = Discontinued) TAKE ONE TABLET BY MOUTH THREE TIMES A DAY NEEDED FOR MUSCLE SPASM MAY CAUSE DROWSINESS. DO NOT DRINK ALCOHOL WHILE TAKING THIS MEDICATION. Rx# [id number] Last Released: 04/17/24 Qty/Days Supply: Rx Expiration Date: 03/01/25 Refills Remainin Indication: FOR MUSCLE SPASM INPT DULOXETINE HCL 30MG EC CAP (Status=Active) 90MG BY MOUTH QDAILY Indication: FOR DEPRESSION *UNSIGNED* OUTPT DULOXETINE HCL 30MG EC CAP (Status = Active) TAKE ONE CAPSULE BY MOUTH ONCE A DAY DO NOT ABRUPTLY DISCONTINUE MEDICATION. TO BE TAKEN ALONG WITH 60MG FOR TOTAL OF 90MG DAILY Rx# [id number] Last Released: 05/23/24 Qty/Days Supply: Rx Expiration Date: 08/20/24 Refills Remainin Indication: FOR DEPRESSION OUTPT DULOXETINE HCL 60MG EC CAP (Status = Discontinued) TAKE ONE CAPSULE BY MOUTH ONCE A DAY DO NOT ABRUPTLY DISCONTINUE MEDICATION. Rx# [id number] Last Released: 03/20/24 Qty/Days Supply: Rx Expiration Date: 06/27/24 Refills Remainin Indication: FOR DEPRESSION OUTPT DULOXETINE HCL 60MG EC CAP (Status = Active/Suspended) TAKE ONE CAPSULE BY MOUTH ONCE A DAY DO NOT ABRUPTLY DISCONTINUE MEDICATION. TO BE TAKEN ALONG WITH 30MG FOR TOTAL OF 90MG DAILY Rx# [id number] Last Released: 05/23/24 Qty/Days Supply: Rx Expiration Date: 05/23/25 Refills Remainin Indication: FOR DEPRESSION INPT ENOXAPARIN 40MG/0.4ML INJ SYRINGE 0.4ML (Status=Active) 40MG/0.4ML UNDER THE SKIN QDAILY Indication: FOR ANTICOAGULATION OUTPT HYDROCODONE 5MG/ACETAMINOPHEN 325MG TAB (Status = Discontinued) TAKE 1 TABLET BY MOUTH EVERY 6 HOURS NEEDED FOR PAIN CAUTION: DO NOT EXCEED 4000MG PER DAY ACETAMINOPHEN (APAP) FROM ALL MEDS. Rx# [id number] Last Released: 07/08/24 Qty/Days Supply: 11/03 Rx Expiration Date: 08/07/24 Refills Remainin Indication: FOR PAIN OUTPT HYDROCODONE 5MG/ACETAMINOPHEN 325MG TAB (Status = Active) TAKE 1 TABLET BY MOUTH EVERY 6 HOURS NEEDED FOR SEVERE PAIN CAUTION: DO NOT EXCEED 4000MG PER DAY ACETAMINOPHEN (APAP) FROM ALL MEDS. Rx# [id number] Last Released: 07/08/24 Qty/Days Supply: 05/24 Rx Expiration Date: 08/07/24 Refills Remainin Indication: FOR SEVERE PAIN INPT HYDROMORPHONE HCL 2MG/ML INJ 1ML (Status=Active) 1MG/0.5ML IVP EVERY SIX HOURS NEEDED For severe pain Indication: FOR SEVERE PAIN INPT LEVOTHYROXINE NA (SYNTHROID) 100MCG TAB (Status=Active) LEVOTHYROXINE NA (SYNTHROID) 75MCG TAB 175MCG BY MOUTH QAMAC Indication: FOR HYPOTHYROIDISM OUTPT LEVOTHYROXINE NA (SYNTHROID) 175MCG TAB (Status = Active) TAKE ONE TABLET BY MOUTH EVERY MORNING BEFORE A MEAL FOR HYPOTHYROIDISM TAKE 30 MINUTES BEFORE FOOD. TAKE SEPARATELY FROM ALL OTHER MEDICATIONS. Rx# [id number] Last Released: 06/11/24 Qty/Days Supply: Rx Expiration Date: 06/11/25 Refills Remainin Indication: FOR HYPOTHYROIDISM OUTPT LIDOCAINE 5% OINT (Status = Active) APPLY SPARINGLY TO AFFECTED AREA(S) ONCE A DAY NEEDED FOR PAIN (EXTERNAL USE ONLY) (WASH HANDS THOROUGHLY AFTER USE) Rx# [id number] Last Released: 11/29/23 Qty/Days Supply: Rx Expiration Date: 11/24/24 Refills Remainin Indication: FOR PAIN OUTPT METFORMIN HCL 1000MG TAB (Status = Active) TAKE ONE-HALF TABLET BY MOUTH TWICE A DAY WITH MEALS TAKE WITH FOOD. AVOID ALCOHOL. DISCONTINUE BEFORE GETTING XRAY DYE. Rx# [id number] Last Released: 04/17/24 Qty/Days Supply: Rx Expiration Date: 01/31/25 Refills Remainin Indication: HYPERGLYCEMIA OUTPT METHYLPREDNISOLONE 4MG TAB DOSEPAK,21 (Status = Active) TAKE TABLETS BY MOUTH DIRECTED TAKE 6 TABLETS BY MOUTH ON DAY ONE, THEN DECREASE BY ONE TABLET DAILY UNTIL GONE. TAKE WITH FOOD. Rx# [id number] Last Released: 07/08/24 Qty/Days Supply: 10/27 Rx Expiration Date: 08/07/24 Refills Remainin Indication: FOR INFLAMMATION OUTPT ONDANSETRON HCL 8MG TAB (Status = Active) TAKE ONE-HALF TABLET BY MOUTH EVERY 6 HOURS NEEDED FOR NAUSEA/VOMITING Rx# [id number] Last Released: 07/08/24 Qty/Days Supply: 09/27 Rx Expiration Date: 08/07/24 Refills Remainin Indication: FOR NAUSEA/VOMITING INPT ONDANSETRON HCL 4MG TAB (Status=Active) 4MG BY MOUTH EVERY SIX HOURS NEEDED For nausea/vomiting Indication: FOR NAUSEA/VOMITING OUTPT PRAMIPEXOLE DIHYDROCHLORIDE 1.5MG TAB (Status = Active) TAKE ONE TABLET BY MOUTH TWICE A DAY FOR RESTLESS LEG SYNDROME Rx# [id number] Last Released: 02/05/24 Qty/Days Supply: Rx Expiration Date: 11/24/24 Refills Remainin Indication: FOR RESTLESS LEG SYNDROME INPT PRAMIPEXOLE DIHYDROCHLORIDE 1.5MG TAB (Status=Active) 1.5MG BY MOUTH TWICE A DAY Indication: FOR RESTLESS LEG SYNDROME OUTPT TIZANIDINE HCL 4MG TAB (Status = Discontinued) TAKE ONE TABLET BY MOUTH THREE TIMES A DAY NEEDED FOR SPASTICITY Rx# [id number] Last Released: 04/24/24 Qty/Days Supply: 21/08 Rx Expiration Date: 05/22/24 Refills Remainin Indication: FOR SPASTICITY OUTPT TIZANIDINE HCL 4MG TAB (Status = Active) TAKE ONE TABLET BY MOUTH THREE TIMES A DAY NEEDED FOR SPASTICITY Rx# [id number] Last Released: 05/22/24 Qty/Days Supply: Rx Expiration Date: 05/22/25 Refills Remainin Indication: FOR SPASTICITY INPT TIZANIDINE HCL 4MG TAB (Status=Active) 4MG BY MOUTH THREE TIMES A DAY NEEDED For spasticity Indication: FOR SPASTICITY OUTPT TRAZODONE HCL 100MG TAB (Status = Active) TAKE ONE TABLET BY MOUTH AT BEDTIME NEEDED FOR INSOMNIA Rx# [id number] Last Released: 07/08/24 Qty/Days Supply: Rx Expiration Date: 01/26/25 Refills Remainin Indication: FOR INSOMNIA INPT TRAZODONE HCL 100MG TAB (Status=Active) 100MG BY MOUTH AT BEDTIME NEEDED For insomnia Indication: FOR INSOMNIA SUPPLIES OUTPT SYRINGE 3ML/NDL 23G 1.5IN (Status = Active) USE 1 SYRINGE INTRAMUSCULARLY EVERY MONTH FOR CYANOCOBALAMIN ADMINISTRATION Rx# [id number] Last Released: 04/17/24 Qty/Days Supply: Rx Expiration Date: 11/24/24 Refills Remainin Indication: FOR INJECTION ===== MEDICATION REVIEW ===== 4. Patient/Family/Caregiver report TAKING WRITTEN all other medications == GENERAL INFORMATION == Admission information given by: Patient Is there a legal guardian/conservator? No Preferred language for discussing healthcare: Citizen [place] Preferred mode of communication: Verbal Items at Bedside: None === INFECTIOUS DISEASE RISK SCREEN === Travel Screen: Have you traveled within the [place] within the last 21 days? No Have you traveled outside the [place] within the last 21 days? No Within the last 14 days, have you had: No known exposure Other Exposure to Infectious Disease: No known exposure Patient reported the following symptoms: No Symptoms Present History of Multiple Drug Resistant Organism (MDRO): No Methicillin-resistant Staphylococcus aureus (MRSA) Swabbing: Informed verbal consent obtained Education provided === NUTRITION SCREENING === Malnutrition Screening Weight (Previous 6 months): Measurement DT WEIGHT LB(KG)[BMI] 07/16/2024 23:43 194.8(88.36)[36*] Lost weight recently without trying: No (0 points) Have you been eating poorly because of decreased appetite? No (0 points) Total Score: 0 Other Nutrition Screening Questions: The patient does not report any concerns with their teeth that would make it difficult to eat. The patient does not report overeating to the point of feeling sick or making themselves vomit. The patient denies gaining 10 lbs.(4.5 kgs) or more in the past 3 months without trying. The patient denies having any food allergies, intolerance, special dietary needs, or ethnic, cultural or orthodoxy preferences that would affect their dietary needs. Food Insecurity Screening Within the past 12 months, you worried whether your food would run out before you got money to buy more. Never true Within the past 12 months, the food you bought just did not last you and you did not have the money to get more. Never true Food Insecurity Disposition: == RISK SCREENINGS == Alcohol Screen: Screen to be completed by: Nurse: SCREEN FOR ALCOHOL (AUDIT-C) An alcohol screening test (AUDIT-C) was negative (score=0). 1. How often did you have a drink containing alcohol in the past year? Consider a drink to be a 12 ounce can or bottle of regular beer, 8 ounces of malt liquor, a 5 ounce glass of table wine, or a 1.5 ounce shot of liquor (like scotch, gin, or vodka). Never 2. How many drinks containing alcohol did you have on a typical day when you were drinking in the past year? Response not required due to responses to other questions. 3. How often did you have 4 or more drinks on one occasion in the past year? Response not required due to responses to other questions. *Does the patient consume alcohol? No Tobacco Use: Do you currently or have you ever used alternative nicotine products? No Substance Use Assessment: *Do you use any recreational drugs or narcotics (prescription or non-prescription)? No === RISK OF WANDERING === The patient does not have a history of elopement. The patient is not expressing a desire to leave. = SUICIDE SCREEN = Result of C-SSRS screener done was NEGATIVE. C-SSRS Screen is Negative == EXPOSURE TO VIOLENCE AND ABUSE PRE-SCREEN == Are you worried for your safety, that you will be hurt or harmed? No Has anyone tried to force you to sign papers or use your money against your will? No == POST TRAUMATIC STRESS DISORDER CARE CONSIDERATIONS == To minimize a startle response, what is your preference on how best to awaken you? No preference === REPRODUCTIVE & SEXUAL HEALTH === Do you have any sexual or reproductive concerns you would like your healthcare team to be aware of? No Status: Patient denies Last Menstrual Period: Are you lactating? No = SPIRITUALITY = Are there orthodoxy practices or spiritual concerns you want the physician underwriter, your provider, and other health care team members to know? No == ANTICIPATED DISCHARGE NEEDS == Where do you live? Housing owned/rented by [place]: Method of transportation upon discharge: Private Vehicle: Are there any anticipated barriers to discharge? No = EDUCATIONAL NEEDS/LEARNING STYLE = Barriers to learning: None evident Patient learning style preferences: None == VISITOR INFORMATION == Will you have a primary support person while in the hospital? No Patient's Visitor Restriction preferences: No Privacy Review: No passcode provided due to opt out ==== CRISTOBAL FALL SCALE & TIPS PROGRAM ==== Cristobal Fall Scale: The Cristobal Fall scale was performed and score was 65. This is indicative of high risk for falls. History of falling: immediate or within 3 months? No Secondary diagnosis: Yes Ambulatory aid: Furniture Intravenous therapy/Heparin lock: Yes Gait/Transferring: Normal/bed rest/immobile Mental Status: Oriented to own ability/knows own limitations === ASPIRATION RISK ASSESSMENT AND SWALLOW SCREEN === Aspiration Risk(s): Screening complete. No aspiration risk identified. Bedside Swallow Screen not indicated. ==== PAIN ASSESSMENT ==== Patient's acceptable pain goal: 4 Distracts me, can do usual activities Are you currently experiencing pain? Yes - DVPRS scale used to assess Location: headache Defense and Veterans Pain Rating Scale (DVPRS): 4 Distracts me, can do usual activities Pain Score: 4 /es/ SANJUANITA DENTON RN REGISTERED NURSE Signed: 07/17/2024 01:17 SANJUANITA REYNOLDS [facility] Jul 17, 2024 12:50 AM NURSING NOTE: LOCAL TITLE: [facility] SKIN INSPECTION/ASSESSMENT STANDARD TITLE: NURSING NOTE DATE OF NOTE: JUL 17, 2024@00:50 ENTRY DATE: JUL 17, 2024@00:51:14 AUTHOR: SANJUANITA REYNOLDS EXP COSIGNER: URGENCY: STATUS: COMPLETED Assessment Type: INITIAL SKIN INSPECTION/ASSESSMENT SKIN INSPECTION: Skin Color: Usual for ethnicity Skin Temperature: Warm Skin Moisture: Normal Skin Turgor: Elastic (normal/immediate) Hugo Skin Assessment: The patient's Hugo Scale Score is 22. The patient is considered not at risk for development of pressure ulcers/injuries. Sensory perception -- ability to respond meaningfully to pressure-related discomfort No impairment. Moisture -- degree to which skin is exposed to moisture Rarely moist. Activity -- ability to change and control body position Walks frequently. Mobility -- ability to change and control body position No limitation. Nutrition -- usual food intake patterns Adequate. Friction and shear No apparent problem. INTERVENTIONS: The pressure injury interventions were not needed - patient/resident is not at risk. RISK FACTORS THAT INCREASE RISK FOR DEVELOPING PRESSURE INJURIES The patient/resident does not have any additional risk factors. SKIN INTEGRITY: Intact /angelika DENTON RN REGISTERED NURSE Signed: 07/17/2024 00:53 SANJUANITA REYNOLDS [facility] Jul 17, 2024 12:32 AM NURSING TREATMENT PLAN NOTE: LOCAL TITLE: [facility] PLAN OF CARE STANDARD TITLE: NURSING TREATMENT PLAN NOTE DATE OF NOTE: JUL 17, 2024@00:32 ENTRY DATE: JUL 17, 2024@00:32:47 AUTHOR: SANJUANITA REYNOLDS EXP COSIGNER: URGENCY: STATUS: COMPLETED [facility] PLAN OF CARE Has ADDENDA Nursing Diagnosis: Pain, Acute/Chronic Goals/Expected Outcomes: Patient verbalizes factors that intensify pain and modifies behavior accordingly, Patient states and carries out appropriate interventions for pain relief Interventions: Administer pharmacological agents as ordered/per protocol, Perform comfort measures to promote relaxation and periods of uninterrupted rest, Discuss patient's fears of under treated pain, overdose, or addiction Educational Needs: Education: Provide relevant information related to:pain Goals have been mutually set with patient. /angelika DENTON RN REGISTERED NURSE Signed: 07/17/2024 00:50 2024 ADDENDUM STATUS: COMPLETED The Nursing Care Plan has been reviewed. Progress on the Goals/Outcomes is as follows: Discharge Planning: Assessment of patient/family's ability to manage care requirement post-discharge: GOOD Need identified at this time for referrals/resources post-discharge: NO Comment: follow care plan at this time /madalyn/ NASEEM WILLIS REGISTERED NURSE Signed: 2024 02:57 07/19/2024 ADDENDUM STATUS: COMPLETED The Nursing Care Plan has been reviewed. Progress on the Goals/Outcomes is as follows: Continue the current plan of care for this patient and we will update this careplan if any changes noted. Monitor labs and vitals. Discharge Planning: Assessment of patient/family's ability to manage care requirement post-discharge: FAIR Need identified at this time for referrals/resources post-discharge: NO Comment: Continue to give pain med as ordered for comfort. /madalyn/ ABILIO EVANGELISTAN REGISTERED NURSE Signed: 07/19/2024 02:53 SANJUANITA REYNOLDS [facility] Jul 17, 2024 12:31 AM NURSING INPATIENT NOTE: LOCAL TITLE: [facility] NURSING FREQUENT DOCUMENTATION STANDARD TITLE: NURSING INPATIENT NOTE DATE OF NOTE: JUL 17, 2024@00:31 ENTRY DATE: JUL 17, 2024@00:31:14 AUTHOR: SANJUANITA REYNOLDS EXP COSIGNER: URGENCY: STATUS: COMPLETED Version 2.4 Charting in accordance with IN APPROVED [place] STANDARD (INAES) ACUTE INPATIENT/REHABILITATION NURSING ADMISSION SCREENING, ASSESSMENT, AND STANDARDS OF CARE ==== NATIONAL EARLY WARNING SCORE (NEWS) ==== The following vital measurements were used to complete the NEWS. Measurement DT TEMP PULSE RESP BP POx F(C) (L/MIN)(%) 07/16/2024 23:42 98.1(36.7) 94 18 131/87 97 The NEWS total is 0. 1. Temperature (C/F): Score = 0 36.1 - 38.0 C (96.9 - 100.4 F) 2. Pulse: Score = 0 51-90 3. Respirations: Score = 0 12-20 4. Blood Pressure (Only Systolic BP, mmHg): Score = 0 111-219 5. Pulse Oximetry: Score = 0 96% or greater 6. Supplemental oxygen in use: Score = 0 No 7. AVPU: Score = 0 Alert Patient Status: Remains on unit /angelika DENTON RN REGISTERED NURSE Signed: 07/17/2024 00:32 SANJUANITA REYNOLDS [facility] Jul 16, 2024 11:47 PM NURSING INPATIENT NOTE: LOCAL TITLE: [facility] ACUTE INPATIENT NSG SHIFT ASSESSMENT STANDARD TITLE: NURSING INPATIENT NOTE DATE OF NOTE: JUL 16, 2024@23:47 ENTRY DATE: JUL 16, 2024@23:47:17 AUTHOR: SANJUANITA REYNOLDS COSIGNER: URGENCY: STATUS: COMPLETED Version 2.2 Charting in accordance with IN APPROVED [place] STANDARD (VAAES) ACUTE INPATIENT/REHABILITATION NURSING ADMISSION SCREENING, ASSESSMENT, AND STANDARDS OF CARE ==== ASSESSMENT ==== ==== PAIN ASSESSMENT ==== Patient's acceptable pain goal: 0 No pain Are you currently experiencing pain? Yes - DVPRS scale used to assess Location: headache Defense and Veterans Pain Rating Scale (DVPRS): 4 Distracts me, can do usual activities Pain Score: 4 ==== CRISTOBAL FALL SCALE & TIPS PROGRAM ==== Cristobal Fall Scale: The Cristobal Fall scale was performed and score was 35. This is indicative of moderate risk for falls. History of falling: immediate or within 3 months? No Secondary diagnosis: Yes Ambulatory aid: None/bedrest/nurse assist Intravenous therapy/Heparin lock: Yes Gait/Transferring: Normal/bed rest/immobile Mental Status: Oriented to own ability/knows own limitations Fall Tailoring Interventions for Patient Safety (TIPS) Fall TIPS initiated with patient: No Fall TIPS reviewed with patient: No ==== ENVIRONMENTAL SAFETY MANAGEMENT ==== Implemented safety standards of care: -[place] to unit & environment -Adequate room lighting -Bed in low and locked position -Call light within reach -Personal items within reach -Traffic path in room free of clutter -Non-slip footwear -Upper/half length side rails up for bed mobility -Sensory aids within reach -Encourage patient to utilize sensory support ==== NEUROLOGICAL ==== Neurological Orientation: Oriented x4 Level of Consciousness (AVPU): Alert = Appears aware of and responsive to the environment on their own. Follows commands, opens eyes spontaneously, and tracks objects. ==== NEUROMUSCULAR/NEUROVASCULAR EXTREMITIES ASSESSMENT ==== Strength: Riding Teacher Bilateral: Strong Upper Extremity Bilateral: Lower Extremity Bilateral: Full strength ==== CARDIOVASCULAR ==== Capillary Refill: All 4 extremities, less than or equal to 3 seconds. Edema: None ==== RESPIRATORY ==== Respirations: Unlabored Breath Sounds Auscultated: Anterior and posterior Left Upper Lobe: Clear Right Upper Lobe: Clear Right Middle Lobe: Clear Left Lower Lobe: Clear Right Lower Lobe: Clear ==== GASTROINTESTINAL ==== Last bowel movement: 07/17/2024 Abdominal Description: Flat Palpation: Soft Bowel Sounds: RUQ: Active LUQ: Active RLQ: Active LLQ: Active ==== GENITOURINARY ==== Elimination: Continent === INTEGUMENTARY/SKIN/WOUND - (INCLUDING HUGO) SEE NOTE: VAAES SKIN INPECTION/ASSESSMENT === ==== ACTIVITIES OF DAILY LIVING ==== Hygiene ADLs: Oral Care: Non-ventilator patient: Patient teeth brushed: Independently ==== MOBILITY ==== Mobility Status: Independent: Gait: Steady ==== IV LINES ==== Peripheral IV: Present on admission: Line #1: Location: Right, Hand Gauge: 20 ==== PSYCHOSOCIAL ==== Type of Emotional Support Provided: 1:1 discussion /es/ SANJUANITA DENTON RN REGISTERED NURSE Signed: 07/17/2024 00:30 SANJUANITA REYNOLDS [facility] Jul 16, 2024 11:44 PM ADMINISTRATIVE NOTE: LOCAL TITLE: ADMINISTRATIVE ST STANDARD TITLE: ADMINISTRATIVE NOTE DATE OF NOTE: JUL 16, 2024@23:44 ENTRY DATE: JUL 16, 2024@23:44:51 AUTHOR: YOMAIRA COOMBS EXP COSIGNER: URGENCY: STATUS: COMPLETED PATIENT HAS BEEN ADMITTED ON 7-S ROOM A731-[address] REMINGTON ULLOA /madalyn/ YOMAIRA COOMBS ADVANCED BUILDING CODE ADMINISTRATOR Signed: 07/16/2024 23:46 Receipt Acknowledged By: 07/16/2024 23:55 /madalyn/ MARY KU EQUIPMENT CLEANER AND TESTER BUILDING CODE ADMINISTRATOR 08/09/2024 02:07 /madalyn/ ONEIDA GERARDO SUPERVISORY BUILDING CODE ADMINISTRATOR YOMAIRA COOMBS [facility]
--- OUTSIDE RECORDS SUMMARY | 2025-03-22 22:00 | XMS_ITS | Clinical Summary ---
Author Organization [address] Address [address] [place] [id number] Care Team Providers Care Audiovisual Technician Name Role Phone Unavailable Primary Care Provider [...]
--- OUTSIDE RECORDS SUMMARY | 2025-03-22 22:00 | XMS_ITS | Encounter Summary ---
Author Name [facility] [place] [facility] [place] Address [address] [place] [address] Care Team Providers Care Immigration Case Manager Name Role Phone VERNA BARRERA Primary Care [...] AID (WNR) Oct 23, 2016 MEDICAI D [id number] GERDA NUNES PATIENT Selected Encounter This section includes the information on record at [place] for the Encounter. Date/Time Encounter Type Encounter Description Reason Provider Source Dec 17, 2024 06:28 PM Outpatient Encounter EMERGENCY DEPT [facility] Encounter Template Text not used by [place] Plan of Treatment: Future Appointments (+ 6 [...] Appointment Type Appointme nt Facility Name Jan 02, 2025 01:00 PM AMBULATORY - PSYCHIATRY [facility] Jan 07, 2025 11:30 AM AMBULATORY - MEDICINE [facility] Apr 18, 2025 02:30 PM AMBULATORY - PSYCHIATRY [facility] Active, Pending, and Scheduled Orders This [...] (SET 1) B D BLD. BOTTLE BLOOD [facility] Nov 07, 2024 09:39 AM Laboratory - Microbiology Order BLOOD CULT (SET 2) B D BLD. BOTTLE (SET 2) BLOOD [facility] Lab Results: +/- 30 days of the encounter This section includes the Chemistry and Hematology Lab Results on record with [place] for the patient. Radiology Reports and Pathology Reports are provided separately, in subsequent sections. Lab Results This section contains the Chemistry/Hematology Results that were resulted 30 days before or 30 daysafter the date of the Encounter. Date/Time Source Result Type Result - Unit Interpretation Reference Range Specimen Type Comment Jan 07, 2025 10:20 AM [facility] FERRITIN SERUM Specimen Type: SERUM No comment entered. Ordering Provider: EZ TAPIA Report Released Date/Time: Oct 22, 2024 02:14 PM Reporting Lab: [facility] [address] [facility] [address] Performing Lab: [facility] [address] [facility] [address] FERRITIN 174.43 ng/mL Jan 07, 2025 10:20 AM [facility] IRON/TIBC PROFILE SERUM Specimen Type: SERUM No comment entered. Ordering Provider: EZ TAPIA Report Released Date/Time: Oct 22, 2024 02:14 PM Reporting Lab: [facility] [address] [facility] [address] Performing Lab: [facility] [address] TIBC 323 ug/dL 250-450 TRANSFERRIN 258 mg/dL 173-360 IRON SATURATION 38 20-50 IRON 122 ug/dL 50-170 Jan 07, 2025 10:20 AM [facility] CBC BLOOD Specimen Type: BLOOD No comment entered. Ordering Provider: EZ TAPIA Report Released Date/Time: Oct 22, 2024 02:14 PM Reporting Lab: [facility] [address] [facility] [address] Performing Lab: [address] [address] WBC 5.6 10*3/uL 3.6-11.2 RBC 4.59 10*6/uL [...] 0.00-0. 20 Dec 17, 2024 07:11 PM [facility] TROPONIN I PLASMA Specimen Type: PLASM A Comment: No hemolysis noted. Ordering Provider: VICTOR M HOUGH Report Released Date/Time: Dec 17, 2024 06:44 PM Reporting Lab: [address] [address] Performing Lab: [address] [address] TROPONIN I <0.010 ng/mL 0-0.033 Dec 17, 2024 07:11 PM [facility] COMPREHENSIVE METABOLIC PANEL PLASMA Specimen Type: PLASMA Comment: No hemolysis noted. Ordering Provider: VICTOR M HOUGH Report Released Date/Time: Dec 17, 2024 06:44 PM Reporting Lab: [address] [address] Performing Lab: [address] [address] CREATININE 0.89 mg/dL 0.6-1.1 UREA NITROGEN 17.8 [...] 79.9 >60 Dec 17, 2024 07:11 PM [facility] CBC BLOOD Specimen Type: BLOOD No comment entered. Ordering Provider: VICTOR M HOUGH Report Released Date/Time: Dec 17, 2024 06:44 PM Reporting Lab: [address] [address] Performing Lab: [address] [address] WBC 7.5 10*3/uL 3.6-11.2 RBC 4.79 10*6/uL [...] 0.60 BASOPHILS, ABSOLUTE 0.08 10*3/uL 0.00-0. 20 Vital Signs: All taken on the encounter date This section contains inpatient and outpatient Vital Signs collected on the date of the Encounter. Date/Time Temperature Pulse Blood Pressure Respiratory Rate SP02 Pain Height Weight Body Mass Index Source Dec 17, 2024 06:41 PM 97.9 106 142/[address] [facility] Social History: Smoking Status (Most current) and Tobacco Use (All prior to encounter date) This section includes the most current, and the historical, smoking and tobacco- related health factors from the [place] facility where the Encounter took place. Current Smoking Status This section includes the most current smoking, or tobacco-related health factor, from the [place] facility where the Encounter took place. Date/Time Current Smoking Status Comment Jessica sidhu Nov 07, 2024 05:48 PM ORYX ADMIT TOBACCO SCREEN NO [facility] Tobacco Use History This section includes a history of the smoking, or tobacco-related health factors, that were collected on or before the date of the Encounter. The data comes from the [place] facility where the Encounter took place. Date/Time Smoking Status/Tobacco Use Comment F halima Jul 17, 2024 03:18 AM ORYX ADMIT TOBACCO SCREEN NO [facility] Nov 09, 2023 06:45 AM ORYX ADMIT TOBACCO SCREEN NO [facility] May 25, 2022 11:42 AM ORYX ADMIT TOBACCO SCREEN NO [facility] May 13, 2022 08:14 PM ORYX ADMIT TOBACCO SCREEN NO [facility] Apr 07, 2022 03:34 AM ORYX ADMIT TOBACCO SCREEN REFUSED [facility] Dec 20, 2021 12:44 PM ORYX ADMIT TOBACCO SCREEN NO [facility] Aug 23, 2021 08:22 PM ORYX ADMIT TOBACCO SCREEN NO [facility] Aug 12, 2021 06:24 PM ORYX ADMIT TOBACCO SCREEN NO [facility] May 12, 2008 06:16 PM LIFETIME NON-USER OF TOBACCO [facility] Jun 28, 2007 01:18 PM LIFETIME NON-USER OF TOBACCO [facility] May 03, 2006 10:56 AM LIFETIME NON-TOBACCO USER [facility] Dec 03, 2003 08:16 AM LIFETIME NON-TOBACCO USER [facility] Radiology Reports: +/- 30 days of the [...] the Encounter. The data comes from all [facility]. Date/Time Radiology Report Provider Source Nov 26, 2024 01:13 PM HIP, UNILAT, 2-3 V IEWS LEFT W OR W/O PELVIS: GERDA NUNES DEC [id number] -[id number] F Exm Date: NOV 26, 2024@13:13 Req Phys: GALDINO FONTANA Pat Loc: [facility] 1 (Req'g Loc) Img Loc: [facility]-MAIN RADIOLOGY SUITE Service: Unknown Screen: Patient answered no [facility], [address] [place] [address] (Case [id number] COMPLETE) HIP, UNILAT, 2-3 VIEWS LEFT W OR (RAD Detailed) CPT:03362 Proc Modifiers : LEFT, AP Pelvis, Frog Reason for Study: Left hip pain Clinical History: Report Status: Verified Date Reported: NOV 28, 2024 Date Verified: NOV 28, 2024 Flight Communications Operator E-Sig:/ES/ROSALINA CHANG Report: EXAMINATION: HIP, UNILAT, [...] osteoarthritis. Primary Interpreting Staff: ROSALINA CHANG, RADIOLOGIST (Flight Communications Operator) /[facility] Encounter Notes: All associated encounter notes This section contains the clinical notes associated to the Encounter. Date/Time Encounter Note(s) Provider Source Dec 17, 2024 06:40 PM EMERGENCY DEPT TRI AGE NOTE: LOCAL TITLE: EMERGENCY DEPARTMENT TRIAGE NOTE STANDARD TITLE: EMERGENCY DEPT TRIAGE NOTE DATE OF NOTE: DEC 17, 2024@18:40 ENTRY DATE: DEC 17, 2024@18:40:16 AUTHOR: SEBAS PENNINGTON EXP COSIGNER: URGENCY: STATUS: COMPLETED EMERGENCY DEPARTMENT TRIAGE NOTE Has ADDENDA Emergency Department/Urgent Care Center Triage Patient age:49 Sex in chart: FEMALE Mode of Arrival: Self Mode of Mobility: * Walk Chief Complaint: left arm pain csw Note (Subjective/Objective): Pt to ED with complaint of left arm pain and intermittent dizziness for the past week. Pt denies jaw pain, vomiting, diarrhea, and fever. Pt's respirations are even and unlabored. Pt is afebrile and nondiaphoretic. Level of Consciousness (AVPU): Alert = Appears aware of and responsive to the environment on their own. Follows commands, opens eyes spontaneously, and tracks objects. Vital Signs: Temperature 97.9 F (36.6 C) Pulse 106 Respirations 16 Blood Pressure 142/110 Pulse Oximetry 97 Room Air Pain: DVPRS Scale Location: [facility] Pain Rating Scale (DVPRS): Pain Score: 6 Patient's acceptable pain goal: Suicide Screen: Thomas Suicide Severity Rating Scale (C-SSRS) screener 1. [...] required due to responses to other questions. Emergency Severity Index (OUMAR) level: Level 3 Previously documented allergies: VITAMIN B12 1000MCG, PANTOPRAZOLE, AMOXICILLIN, FLONASE NASAL SOLUTION PREGABALIN, METHOCARBAMOL Current Problems: 1) Family history of ischemic heart disease (SNOMED CT 737630699) 2) Migraine (SNOMED CT 65049042) 3) Vitamin D deficiency 4) Hypothyroidism 5) Low back pain 6) Depression 7) Mastodynia 8) Lumbar radiculopathy 9) Irritable bowel syndrome characterized by alternating bowel habit 10) Fibromyalgia 11) Chronic pain in female pelvis 12) Kidney stone 13) Insomnia 14) Compartment syndrome 15) Obesity (SCT 915312957) 16) Arthritis 17) Intermittent palpitations 18) Chronic obstructive lung disease 19) Obstructive sleep apnea of adult 20) Poor pelvic muscle tone 21) Cervicalgia 22) Bacterial cellulitis 23) Overactive bladder 24) Iron deficiency /es/ SEBAS PENNINGTON RN BSN REGISTERED NURSE Signed: 12/17/2024 18:43 12/17/2024 ADDENDUM STATUS: COMPLETED 1901 ECG completed results given to ROME Madelyn 2100 assumed care of pt in room 106 of ER pt resting in bed NOD pt updated plan of care pending diagnostic results and ERP evaluation, amenable denied any needs given call light encouraged to call if needed 2149 PO oxy/apap given via BCMA per order ERP Madelyn pt stated family will drive her home pt discharged, IV removed tip intact given paperwork. pt educated on discharge meds and to present to pharmacy for pick up operator, educated to follow up with PCP endorsed access to service, educated to return to ER for worsening symptoms or any other emergent concern pt declined dischage vitals requesting to expedite discharge left ER in WC with family member, no change in assessment voiced no new medical concerns or complaints /es/ TREVON LOPEZN, RN REGISTERED NURSE Signed: 12/18/2024 20:35 SEBAS PENNINGTON [facility]
--- OUTSIDE RECORDS SUMMARY | 2025-03-22 22:00 | XMS_ITS | Clinical Summary ---
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 Restless legs 06/29/2022 Psychophysiological insomnia [...] without status migrainosus, not intract able 10/06/2020 [place] eye disease 10/06/2020 Primary hypothyroidism 10/06/2020 Right ankle sprain 10/06/2020 Sprain of left foot 10/06/2020 Swelling of tonsil 10/06/2020 Systemic viral illness 10/06/2020 Adnexal cyst 06/20/2019 Overview (06/20/2019): Added automatically from request for surgery [id number] Urgency incontinence 03/09/2018 Bilateral myofascial pain 03/08/2018 Frequent urination 03/08/2018 Dysuria 09/20/2016 Surgical follow-up care 09/20/2016 Pelvic pain 07/09/2016 Abdominal pain Resolved Problems Problem Noted Date Diagnosed Date Resolved Date BMI 50.0-59.9, adult 06/29/2022 024 Increased urinary frequency 03/08/2018 04/04/2018 Ovarian cystic mass 02/13/2018 04/04/20 18 Pelvic mass in female 02/13/20182017 Encounters Date Type Department Care Team Description 03/19/2025 Telephone [facility] Minimally Invasive Surgery [facility] Medical Office Building [address] [place] [address] Fay Padilla B.A. from Last 3 Months Surgical History Surgery Date Site/Laterality Comments [place] DCMPRN FASCT LEG ANT&/LAT COMPARTMENTS ONLY 1996, 2006 Left Leg Decompression Fasciotomy Anterior Compartment - (Added by TW Conv) LEFT OOPHORECTOMY 10/23/2017 - 10/22/2018 Left laparoscopic SECTION 1998, 2000, 2003 LEG SURGERY POLYPECTOMY 10/23/2014 - 10/22/2015 URETERAL STENT PLACEMENT 10/23/2016 - 10/22/2017 HYSTERECTOMY 10/23/2015 - 10/22/2016 [place] UNLISTED PROCEDURE BREAST 10/23/2014 - 10/22/2015 ABDOMINAL [...] Kidney stone Low back pain Morbid obesity ([facility]) Sleep apnea Thyroid disease Urinary incontinence Vitamin D deficiency Other complications of anest hesia, sequela High tolerance to Anesthesi a, Planned block anesthesia for C-Sections required conversion over to general anesthesia Nausea and vomiting 11/26/2023 Family History Medical History Relation Name Comments 22y , jerking motions after T&A in 2016 at 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 Gender Identity Not on file Sexual Orientation [...] history exists Medical Devices Implanted Type Area Hose Turner Device Identifier Shelf Expiration Date Model / Serial / Lot [employer] Biological Bariatric Peristrip Non Crosslinked Bovine Pericardium For Endo Marcelina Thin [id number] - Sn/A - [id number] Implanted:Qty: 1 on 06/08/2023 by Bert Rankin MD at [facility] Other - see comments N/A: Abdomen [employer] 11/02/2023 [id number] / N/A / [id number] Description:Hannah strip [employer] Biological Bariatric Peristrip Non Crosslinked Bovine Pericardium For Endo Marcelina Thin [id number] - Sn/A - [id number] Implanted:Qty: 1 on 06/08/2023 by Bert Rankin MD at [facility] Other - see comments N/A: Abdomen [employer] 11/02/2023 [id number] / N/A / [id number] Description:Hannah strip Insurance [facility] Member Subscriber Plan / Payer (Ef fective 2020-Present) Name:Rebeca Huber Relation to Subscriber:Self Name:MayoJanie ricoary Negrete Payer ID:[id number] (NAIC) Group ID:Not on file Type:MEDICAID RISK OTHER Address: ATTN: CLAIMS DEPT [address] [facility] Advance Directives For more information, please contact: [phone] * Full Code (Latest Code Status on [...] 4:09 AM 08/06/2021 7:43 PM Care Teams Renewable Energy Broker Relationship Specialty Start Date End Date Asuncion Lyle MD [address] [facility] [place] [phone] PCP - General Family Practice 06/29/22 Luzmaria Ba MD Referring Physician Obstetrics and Gynecology 03/13/19 Uche Williamson MD [address] [facility] [id number] [place] [address] Referring Physician Gynecologic Oncology 06/07/19 RAJESH MONK NP [facility] [address] [place] [address] Referring Physician Internal Medicine 05/30/19
--- OUTSIDE RECORDS SUMMARY | 2025-03-22 22:00 | XMS_ITS | Encounter Summary ---
Author Name [facility] [place] [facility] [place] [facility] [place] Address [address] [place] [address] Care Team Providers Care Commanding Officer Traffic Division Name Role Phone VERNA BARRERA Primary Care [...] AID (WNR) Oct 23, 2016 MEDICAI D [id number] GERDA NUNES PATIENT Selected Encounter This section includes the information on record at [place] for the Encounter. Date/Time Encounter Type Encounter Description Reason Provider Source Jul 16, 2024 11:43 AM Outpatient Encounter EMERGENCY DEPT DEEP BLANCHARD Encounter Template Text not used by [place] [...] 22, 2024 10:00 AM AMBULATORY - MEDICINE [facility] Oct 22, 2024 11:30 AM AMBULATORY - MEDICINE [facility] Nov 07, 2024 08:41 AM AMBULATORY - MEDICINE [facility] Nov 12, 2024 10:30 AM AMBULATORY - MEDICINE [facility] Nov 14, 2024 09:30 AM AMBULATORY - MEDICINE [facility] Nov 26, 2024 12:30 PM AMBULATORY - SURGERY [facility] Dec 17, 2024 06:28 PM AMBULATORY - MEDICINE [facility] Jan 02, 2025 01:00 PM AMBULATORY - PSYCHIATRY [facility] Jan 07, 2025 11:30 AM AMBULATORY - MEDICINE [facility] Active, Pending, and Scheduled Orders This section includes a listing of several types of active, pending, and scheduled orders, including clinic medications orders, diagnostic test orders, procedure orders and consult orders; where the start date of the order is 45 days before the date of the Encounter or 45 days after the date of theEncounter. The data comes from all [facility]. Test Date/Time Test Type Test Details Facility Name Jul 11, 2024 04:51 PM Laboratory - Chemi stry Order TSH W/ REFLEX FT4 (STL) GREEN LI-HEP PLASMA WC [facility] Jul 12, 2024 12:00 AM Laboratory - Chemi stry Order HAPTOGLOBIN (STL) GOLD/RED SST SERUM SP [facility] Jul 12, 2024 12:00 AM Laboratory - Chemi stry Order LDH GREEN LI/HEP BLD/PLAS PLASMA SP [facility] Jul 12, 2024 12:00 AM Laboratory - Chemi stry Order FERRITIN GOLD/RED SST SERUM SP [facility] Jul 12, 2024 12:00 AM Laboratory - Chemi stry Order IRON/TIBC PROFILE GOLD/RED SST SERUM SP [facility] Jul 12, 2024 12:00 AM Laboratory - Chemi stry Order B12 GOLD/RED SST SERUM SP [facility] Jul 12, 2024 12:00 AM Laboratory - Chemi stry Order FOLATE (STL-MA) GOLD/RED SST SERUM SP [facility] Jul 12, 2024 12:00 AM Laboratory - Chemi stry Order RETIC RATIO BLOOD SP ONCE [facility] Jul 16, 2024 11:36 PM Laboratory - Chemi stry Order MRSA SURVL NARES DNA NARES WC [facility] Lab Results: +/- 30 days [...] Type Comment Jul 20, 2024 11:28 AM [facility] GLUCOSE,BLOOD-poct (STL) BLOOD Specimen Type: BLOOD Comment: Test Performed by: [id number] Meter #: [id number] Ordering Provider: KRYSTIAN KUMARI Report Released Date/Time: Jul 20, 2024 11:50 AM Reporting Lab: [facility] [address] [facility] [address] Performing Lab: [address] [address] GLUCOSE,BLOOD-poct (STL) 78 mg/dL 72-99 Jul 20, 2024 08:02 AM [facility] MAGNESIUM PLASMA Specimen Type: PLASM A Comment: No hemolysis noted. Ordering Provider: MICHAEL FELIZ Report Released Date/Time: Jul 17, 2024 03:01 PM Reporting Lab: [facility] [address] [facility] [address] Performing Lab: [address] [address] MAGNESIUM 2.1 mg/dL 1.6-2.6 Jul 20, 2024 08:02 AM [facility] RENAL PANEL PLASMA Specimen Type: PLASM A Comment: No hemolysis noted. Ordering Provider: MICHAEL FELIZ Report Released Date/Time: Jul 17, 2024 03:01 PM Reporting Lab: [place] [address] [facility] [address] Performing Lab: [address] [address] CREATININE 0.81 mg/dL 0.6-1.1 UREA NITROGEN 16.7 mg/dL 9.0-25.0 GLUCOSE 99 mg/dL 72-99 SODIUM 142 meq/L 136-145 POTASSIUM 4.2 meq/L 3.5-5 CHLORIDE 108 meq/L H 98-107 CARBON DIOXIDE 25 meq/L 22-31 CALCIUM 9.6 mg/dL 8.4-10.4 PHOSPHOROUS 3.9 mg/dL 2.3-4.7 ALBUMIN 3.7 g/dL 3.4-5 EGFR (CKD-EPI 2020) 89.5 >60 Jul 19, 2024 04:23 PM [facility] GLUCOSE,BLOOD-poct (STL) BLOOD Specimen Type: BLOOD Comment: Test Performed by: [id number] Meter #: [id number] Ordering Provider: [id number] Report Released Date/Time: Jul 19, 2024 04:54 PM Reporting Lab: [address] [address] Performing Lab: [address] [address] GLUCOSE,BLOOD-poct (STL) 74 mg/dL 72-99 Jul 19, 2024 11:32 AM [facility] GLUCOSE,BLOOD-poct (STL) BLOOD Specimen Type: BLOOD Comment: Test Performed by: [id number] Meter #: [id number] Ordering Provider: [id number],MED Report Released Date/Time: Jul 19, 2024 11:55 AM Reporting Lab: [address] [address] Performing Lab: [address] [address] GLUCOSE,BLOOD-poct (STL) 78 mg/dL 72-99 Jul 19, 2024 06:59 AM [facility] MAGNESIUM PLASMA Specimen Type: PLASM A Comment: No hemolysis noted. Ordering Provider: MICHAEL FELIZ Report Released Date/Time: Jul 17, 2024 03:01 PM Reporting Lab: [facility] [address] [place] [address] Performing Lab: [address] [address] MAGNESIUM 2.1 mg/dL 1.6-2.6 Jul 19, 2024 06:59 AM [facility] RENAL PANEL PLASMA Specimen Type: PLASM A Comment: No hemolysis noted. Ordering Provider: MICHAEL FELIZ Report Released Date/Time: Jul 17, 2024 03:01 PM Reporting Lab: [address] [address] Performing Lab: [address] [address] CREATININE 0.88 mg/dL 0.6-1.1 UREA NITROGEN 19.2 mg/dL 9.0-25.0 GLUCOSE 52 mg/dL L 72-99 SODIUM 143 meq/L 136-145 POTASSIUM 3.5 meq/L 3.5-5 CHLORIDE 108 meq/L H 98-107 CARBON DIOXIDE 26 meq/L 22-31 CALCIUM 10.0 mg/dL 8.4-10.4 PHOSPHOROUS 3.8 mg/dL 2.3-4.7 ALBUMIN 4.1 g/dL 3.4-5 EGFR (CKD-EPI 2020) 81.0 >60 Jul 19, 2024 06:59 AM [facility] CBC BLOOD Specimen Type: BLOOD No comment entered. Ordering Provider: MICHAEL FELIZ Report Released Date/Time: Jul 17, 2024 03:01 PM Reporting Lab: [address] [address] Performing Lab: [address] [address] WBC 4.6 10*3/uL 3.6-11.2 RBC 4.82 10*6/uL [...] 0.05 10*3/uL 0.00-0. 20 2024 06:35 AM [facility] MAGNESIUM PLASMA Specimen Type: PLASM A Comment: No hemolysis noted. Ordering Provider: MICHAEL FELIZ Report Released Date/Time: Jul 17, 2024 03:01 PM Reporting Lab: [facility] [address] [facility] [address] Performing Lab: [facility] [address] [place] [address] MAGNESIUM 2.2 mg/dL 1.6-2.6 2024 06:35 AM [facility] FERRITIN SERUM Specimen Type: SERUM No comment entered. Ordering Provider: MICHAEL FELIZ Report Released Date/Time: Jul 17, 2024 03:01 PM Reporting Lab: [facility] [address] [facility] [address] Performing Lab: [address] [address] FERRITIN 11.54 ng/mL 2024 06:35 AM [facility] B12 SERUM Specimen Type: SERUM No comment entered. Ordering Provider: MICHAEL FELIZ Report Released Date/Time: Jul 17, 2024 03:01 PM Reporting Lab: [facility] [address] [facility] [address] Performing Lab: [facility] [address] [place] [address] B12 194 pg/mL L 213-816 2024 06:35 AM [facility] IRON/TIBC PROFILE SERUM Specimen Type: SERUM No comment entered. Ordering Provider: MICHAEL FELIZ Report Released Date/Time: Jul 17, 2024 03:01 PM Reporting Lab: [facility] [address] [place] [address] Performing Lab: [address] [address] TIBC 420 ug/dL 250-450 TRANSFERRIN 336 mg/dL 173-360 IRON SATURATION 11 L 20-50 IRON 45 ug/dL L 50-170 2024 06:35 AM [facility] FOLATE ([facility]) SERUM Specimen Type: SERUM No comment entered. Ordering Provider: MICHAEL FELIZ Report Released Date/Time: Jul 17, 2024 03:01 PM Reporting Lab: [address] [address] Performing Lab: [address] [address] FOLATE ([facility]) 8.8 ng/mL 7-20 2024 06:35 AM [facility] VITAMIN D, 25-HYDROXY SERUM Specimen Type: SE RUM No comment entered. Ordering Provider: MICHAEL FELIZ Report Released Date/Time: Jul 17, 2024 03:49 PM Reporting Lab: [address] [address] Performing Lab: [address] [address] VITAMIN D, 25-HYDROXY 39.3 ng/mL 30-96 2024 06:35 AM [facility] CBC BLOOD Specimen Type: BLOOD No comment entered. Ordering Provider: MICHAEL FELIZ Report Released Date/Time: Jul 17, 2024 03:01 PM Reporting Lab: [address] [address] Performing Lab: [address] [address] WBC 5.6 10*3/uL 3.6-11.2 RBC 4.41 10*6/uL [...] 0.05 10*3/uL 0.00-0. 20 2024 06:35 AM [facility] RENAL PANEL PLASMA Specimen Type: PLASM A Comment: No hemolysis noted. Ordering Provider: MICHAEL FELIZ Report Released Date/Time: Jul 17, 2024 03:01 PM Reporting Lab: [address] [address] Performing Lab: [address] [address] CREATININE 0.85 mg/dL 0.6-1.1 UREA NITROGEN 20.0 mg/dL 9.0-25.0 GLUCOSE 91 mg/dL 72-99 SODIUM 142 meq/L 136-145 POTASSIUM 4.2 meq/L 3.5-5 CHLORIDE 108 meq/L H 98-107 CARBON DIOXIDE 26 meq/L 22-31 CALCIUM 9.6 mg/dL 8.4-10.4 PHOSPHOROUS 4.9 mg/dL H 2.3-4.7 ALBUMIN 3.9 g/dL 3.4-5 EGFR (CKD-EPI 2020) 84.5 >60 Jul 17, 2024 08:37 PM [facility] VITAMIN B1 PLASMA Specimen Type: PLASM A Comment: Vitamin supplementation within 24 hours prior to blood draw may affect the accuracy of the results. This test was developed and its analytical performance characteristics have been determined by [facility] [place]. It has not been cleared or approved by the U.S. Food and Drug Administration. This assay has been validated pursuant to the CLIA regulations and is used for clinical purposes. Test Performed by [facility], [facility], [address] [place] [address] Remi Dos Santos M.D., Ph.D., Director of Laboratories , CLIA [id number] Ordering Provider: MICHAEL FELIZ Report Released Date/Time: Jul 17, 2024 04:40 PM Reporting Lab: [address] [address] Performing Lab: [facility] [id number] [place] [address] VITAMIN B1 13 nmol/L 8-30 Jul 17, 2024 06:48 AM [facility] TSH (MA-PB) SERUM Specimen Type: SERUM No comment entered. Ordering Provider: REMINGTON COTA Report Released Date/Time: Jul 17, 2024 03:52 AM Reporting Lab: [facility] [address] [facility] [address] Performing Lab: [address] [address] TSH 3.837 u[IU]/mL 0.47-5 Jul 17, 2024 06:48 AM [facility] BASIC METABOLIC PANEL PLASMA Specimen Type: PL ASMA Comment: No hemolysis noted. Ordering Provider: REMINGTON COTA Report Released Date/Time: Jul 16, 2024 11:36 PM Reporting Lab: [address] [address] Performing Lab: [address] [address] CREATININE 0.89 mg/dL 0.6-1.1 UREA NITROGEN 14.1 mg/dL 9.0-25.0 GLUCOSE 86 mg/dL 72-99 SODIUM 144 meq/L 136-145 POTASSIUM 3.5 meq/L 3.5-5 CHLORIDE 109 meq/L H 98-107 CARBON DIOXIDE 24 meq/L 22-31 CALCIUM 9.7 mg/dL 8.4-10.4 EGFR (CKD-EPI 2020) 80.4 >60 Jul 17, 2024 06:48 AM [facility] CBC BLOOD Specimen Type: BLOOD No comment entered. Ordering Provider: REMINGTON COTA Report Released Date/Time: Jul 16, 2024 11:36 PM Reporting Lab: [address] [address] Performing Lab: [address] [address] WBC 6.0 10*3/uL 3.6-11.2 RBC 4.55 10*6/uL [...] 0.00-0. 20 Jul 16, 2024 11:44 PM [facility] MRSA SURVL NARES DNA NARES [...] Jul 16, 2024 11:36 PM Reporting Lab: [place] [address] Performing Lab: [place] [address] MRSA SURVL NARES DNA Negative Negative Jul 16, 2024 04:15 PM [facility] TEST URINE (MA-STL) URINE Specimen Type: URINE No comment entered. Ordering Provider: ROBERTA RIVAS Report Released Date/Time: Jul 16, 2024 01:23 PM Reporting Lab: [address] [address] Performing Lab: [place] [address] Qualitative Test NEG NEGAT MISAEL Jul 16, 2024 04:15 PM [facility] URINALYSIS W/ CX REFLEX (STL-PB) URINE Specim en Type: URINE No comment entered. Ordering Provider: ROBERTA RIVAS Report Released Date/Time: Jul 16, 2024 01:23 PM Reporting Lab: [address] [address] Performing Lab: [address] [address] URINE COLOR Yellow Yellow U.BILIRUBIN Negative mg/dL [...] 1.026 1.005-1.029 Jul 16, 2024 02:30 PM [facility] CPK PLASMA Specimen Type: PLASM A Comment: No hemolysis noted. Ordering Provider: ROBERTA RIVAS Report Released Date/Time: Jul 16, 2024 01:23 PM Reporting Lab: [facility] [address] [facility] [address] Performing Lab: [facility] [address] [facility] [address] CPK 92 U/L 29-168 Jul 16, 2024 02:30 PM [facility] PHOSPHOROUS PLASMA Specimen Type: PLASM A Comment: No hemolysis noted. Ordering Provider: ROBERTA RIVAS Report Released Date/Time: Jul 16, 2024 01:23 PM Reporting Lab: [facility] [address] [facility] [address] Performing Lab: [facility] [address] [facility] [address] PHOSPHOROUS 3.4 mg/dL 2.3-4.7 Jul 16, 2024 02:30 PM [facility] MAGNESIUM PLASMA Specimen Type: PLASM A Comment: No hemolysis noted. Ordering Provider: ROBERTA RIVAS Report Released Date/Time: Jul 16, 2024 01:23 PM Reporting Lab: [facility] [address] [facility] [address] Performing Lab: [facility] [address] [facility] [address] MAGNESIUM 2.0 mg/dL 1.6-2.6 Jul 16, 2024 02:30 PM [facility] COMPREHENSIVE METABOLIC PANEL PLASMA Specimen Type: PLASMA Comment: No hemolysis noted. Ordering Provider: ROBERTA RIVAS Report Released Date/Time: Jul 16, 2024 01:23 PM Reporting Lab: [address] [address] Performing Lab: [address] [address] CREATININE 0.86 mg/dL 0.6-1.1 UREA NITROGEN 15.1 [...] 83.8 >60 Jul 16, 2024 02:30 PM [facility] CBC BLOOD Specimen Type: BLOOD No comment entered. Ordering Provider: ROBERTA RIVAS Report Released Date/Time: Jul 16, 2024 01:23 PM Reporting Lab: [address] [address] Performing Lab: [address] [address] WBC 6.3 10*3/uL 3.6-11.2 RBC 4.76 10*6/uL [...] Jul 16, 2024 11:43 PM 194.8 36 [facility] Jul 16, 2024 11:42 PM 98.1 94 131/87 18 97 7 [facility] Jul 16, 2024 10:15 PM 84 117/91 [facility] Jul 16, 2024 07:30 PM 74 115/95 [facility] Jul 16, 2024 05:00 PM 87 139/91 [facility] Social History: Smoking Status (Most [...] 06:45 AM ORYX ADMIT TOBACCO SCREEN NO [facility] Tobacco Use History This section includes a history of the smoking, or tobacco-related health factors, that were collected on or before the date of the Encounter. The data comes from the [place] facility where the Encounter took place. Date/Time Smoking Status/Tobacco Use Comment F acility May 25, 2022 11:42 AM ORYX ADMIT TOBACCO SCREEN NO [facility] May 13, 2022 08:14 PM ORYX ADMIT TOBACCO SCREEN NO [facility] Apr 07, 2022 03:34 AM ORYX ADMIT TOBACCO SCREEN REFUSED [facility] Dec 20, 2021 12:44 PM ORYX ADMIT TOBACCO SCREEN NO [facility] Aug 23, 2021 08:22 PM ORYX ADMIT TOBACCO SCREEN NO [facility] Aug 12, 2021 06:24 PM ORYX ADMIT TOBACCO SCREEN NO [facility] May 12, 2008 06:16 PM LIFETIME NON-USER OF TOBACCO [facility] Jun 28, 2007 01:18 PM LIFETIME NON-USER OF TOBACCO [facility] May 03, 2006 10:56 AM LIFETIME NON-TOBACCO USER [facility] Dec 03, 2003 08:16 AM LIFETIME NON-TOBACCO USER [facility] Radiology Reports: +/- 30 days [...] the Encounter. The data comes from all [facility] facilities. Date/Time Radiology Report Provider Source Jul 16, 2024 02:59 PM TIBIA & FIBULA,LEF T, 2 VIEWS: MANJUGERDA SERRA DEC [id number] -1975 F Exm Date: JUL 16, 2024@14:59 Req Phys: ROBERTA RIVAS Pat Loc: -EMERGENCY DEPT 2ND SHIFT (R Img Loc: -MAIN RADIOLOGY SUITE Service: Unknown Screen: Patient answered no [facility], [address] [place] [address] (Case [id number] COMPLETE) TIBIA & FIBULA,LEFT, 2 VIEWS (RAD Detailed) CPT:53206 Proc Modifiers : LEFT Reason for Study: left calf pain, rule out foregin body Clinical History: Report Status: Verified Date Reported: JUL 16, 2024 Date Verified: JUL 16, 2024 Bladder Trimmer E-Sig:/TAMERA/INDIO SHARMA Report: EXAMINATION: TIBIA & FIBULA,LEFT, 2 [...] Primary Interpreting Staff: INDIO SHARMA, Diagnostic Radiologist (Bladder Trimmer) /INDIO BRANDT [facility] Jul 16, 2024 02:47 PM US EXTREMITY VEINS UNILAT OR LTD: GERDA NUNES [facility] [id number] -1975 F Exm Date: JUL 16, 2024@14:47 Req Phys: ROBERTA RIVAS Loc: BIN-EMERGENCY DEPT 2ND SHIFT (R Img Loc: BIN-ULTRASOUND Service: Unknown Screen: Patient answered no [facility], [facility] [address] [place] [address] (Case [id number] COMPLETE) US EXTREMITY VEINS UNILAT OR LTD (US Detailed) CPT:65266 Reason for Study: left leg pain Clinical History: Report Status: Verified Date Reported: JUL 16, 2024 Date Verified: JUL 16, 2024 Bladder Trimmer E-Sig:/TAMERA/INDIO SHARMA Report: Case [id number] US EXTREMITY VEINS UNILAT OR LTD Comparison: Left lower extremity ultrasound 11/09/2023. Findings: The left lower extremity deep veins are compressible throughout their course. No thrombi are visualized. Venous flow velocities demonstrate normal variation with respiration and augmentation. Impression: No evidence of deep venous thrombosis of the left lower extremity deep veins. Dictated by Kanika Lucero M.D. (radiology therapist). I, Indio Sharma, have reviewed the images and report and concur with these findings. Primary Interpreting Staff: INDIO SHARMA, Diagnostic Radiologist (Bladder Trimmer) Primary Interpreting Resident: KANIKA LUCERO Diagnostic [employer] Installer /INDIO ABARCA [facility] Jun 27, 2024 06:00 AM MRI SPINE THORACIC W/O CONT: GERDA NUNES [facility] [id number] -1975 F Exm Date: JUN 27, 2024@06:00 Req Phys: VERNA BARRERA A Pat Loc: [facility] PACT 6 PCP (Req'g Lo Img Loc: OUTSIDE BIN-MRI Service: Unknown Screen: Patient answered no (Case [id number] COMPLETE) MRI SPINE THORACIC W/O CONT (MRI Detailed) CPT:09420 Reason for Study: OUTSIDE STUDY Clinical History: Report Status: Electronically Filed Date Reported: JUL 08, 2024 Report: This study was performed outside the [place] in another facility and images were uploaded into [employer]. The report has been scanned into [employer]. In order to upload images a case number was needed, therefore this is an administrative report. Impression: This study was performed outside the [place] in another facility and images were uploaded into [employer]. The report has been scanned into [employer]. In order to upload images a case number was needed, therefore this is an administrative report VERIFIED BY: / *ELECTRONICALLY FILED* [facility] Encounter Notes: All associated encounter notes This section contains the clinical notes associated to the Encounter. Date/Time Encounter Note(s) Provider Source Jul 16, 2024 11:49 AM EMERGENCY DEPT TRI AGE NOTE: LOCAL TITLE: EMERGENCY DEPARTMENT TRIAGE NOTE STANDARD TITLE: EMERGENCY DEPT TRIAGE NOTE DATE OF NOTE: JUL 16, 2024@11:49 ENTRY DATE: JUL 16, 2024@11:50:02 AUTHOR: DEEP BLANCHARD COSIGNER: URGENCY: STATUS: COMPLETED EMERGENCY DEPARTMENT TRIAGE NOTE Has ADDENDA Emergency Department/Urgent Care Center Triage Patient age:48 Sex: FEMALE On arrival patient was: AMBULATORY Patient phone number: Allergies: VITAMIN B12 1000MCG, PANTOPRAZOLE, AMOXICILLIN, FLONASE NASAL SOLUTION PREGABALIN, GABAPENTIN, METHOCARBAMOL Subjective/Chief Complaint: left lower leg pain x 2 weeks Objective: having worsening left lower ext pain for the last 2 weeks. taking vicodin with no relief. no fall or trauma. called the pcp and crisis line to state she is in extreme pain. states she was seen prior and told leg is ok. leg appears normal. patient is anxious in triage but calm and cooperative. The patient is not a fall risk. BP: 145/78 P: 108 R: 17 WT: T: 98.3 HT: Last normal menstrual period (LNMP): Post hysterectomy [...] history of ischemic heart disease (SNOMED CT [id number]) 2) Migraine (SNOMED CT 86617904) 3) Vitamin D deficiency 4) Hypothyroidism 5) Low back pain 6) Depression 7) Mastodynia 8) Lumbar radiculopathy 9) Irritable bowel syndrome characterized by alternating bowel habit 10) Fibromyalgia 11) Chronic pain in female pelvis 12) Kidney stone 13) Insomnia 14) Compartment syndrome 15) Obesity ([facility] [id number]) 16) Arthritis 17) Intermittent palpitations 18) Chronic obstructive lung disease 19) Obstructive sleep apnea of adult 20) Poor pelvic muscle tone 21) Cervicalgia 22) Bacterial cellulitis 23) Overactive bladder Suicide Screen: [place] Suicide Severity Rating Scale (C-SSRS) screener 1. Over the past month, have you wished you were or wished you could go to sleep and not wake up? Yes 2. Over the past month, have you [...] due to responses to other questions. /tamera/ DEEP BLANCHARD RN Signed: 07/16/2024 12:14 07/16/2024 ADDENDUM STATUS: COMPLETED 1327: ROME Rivas to evaluate pt, this RN present for evaluation, pt tolerated well /tamera/ BERTIN LOPEZ, RN REGISTERED NURSE Signed: 07/16/2024 13:28 07/16/2024 ADDENDUM STATUS: COMPLETED 1623- Pt medicated with dilaudid per [facility]MA orders. Vitals: Blood Pressure: 140/100 Pulse: 90 Pain: 10 Pulse Oximetry: 97% 1700- Vitals: Blood Pressure: 139/91 Pulse: 87 Pulse Oximetry: 96% 1828- Pt given ativan per BCMA orders 183- Dr Rivas bs to update pt with plan to admit to hospital 1901- Pt given ceftriaxone & dilaudid per [facility]MA orders. Pt requests nausea medication, Dr Rivas made aware and verbal order given for zofran 1920- Pt given zofran per [facility]MA orders 1930- Vitals: Blood Pressure: 115/95 Pulse: 74 Pulse Oximetry: 100% 2104- Med team at bedside 2114- Per 7S RN, room change and clean needs to occur for pt movement, unable to get report until that swap happens. Will call when room is clean and ready for patient 2214- Pt given dilaudid per [facility]MA orders. Pt updated that beds must be moved upstairs prior to placement. Vitals: Blood Pressure: 117/91 Pulse: 84 Pulse Oximetry: 98% 2301- Report to Charla LÓPEZ on 7S, questions answered 230- Pt to and taken to ED back, transport requested. Pt requests benadryl, Dr Wong placed orders 2311- Transport to pt for transfer to [place], pharmacy not verified med, no benadryl given prior to floor transfer /es/ EUSEBIA LEE, MSN, RN REGISTERED NURSE Signed: 07/16/2024 23:13 DEEP BLANCHARD [facility]
--- OUTSIDE RECORDS SUMMARY | 2025-03-22 22:01 | XMS_ITS | Encounter Summary ---
Author Name [facility] [place] Address [address] [place] [address] Care Team Providers Care [employer] English Teacher Name Role Phone VERNA BARRERA Primary Care [...] AID (WNR) Oct 23, 2016 MEDICAI D [id number] GERDA NUNES PATIENT Selected Encounter This section includes the information on record at [place] for the Encounter. Date/Time Encounter Type Encounter Description Reason Provider Source Jan 29, 2025 11:13 AM TARGETED CASE MANAGEMENT ADMIN PAT ACTIVTIES (MASNONCT) NICOLAS CHILDRESS Encounter Template Text not used by [place] Plan of Treatment: Future Appointments (+ 6 [...] 20 appointments. The data comes from all [place] treatment facilities. Appointment Date/Time Appointment Type Appointme nt Facility Name Apr 18, 2025 02:30 PM AMBULATORY - PSYCHIATRY [facility] Lab Results: +/- 30 days of the encounter This section includes the Chemistry and Hematology Lab Results on record with [place] for the patient. Radiology Reports and Pathology Reports are provided separately, in subsequent sections. Lab Results This section contains the Chemistry/Hematology Results that were resulted 30 days before or 30 daysafter the date of the Encounter. Date/Time Source Result Type Result - Unit Interpretation Reference Range Specimen Type Comment Jan 07, 2025 10:20 AM [facility] FERRITIN SERUM Specimen Type: SERUM No comment entered. Ordering Provider: EZ TAPIA Report Released Date/Time: Oct 22, 2024 02:14 PM Reporting Lab: [address] [address] Performing Lab: [address] [address] FERRITIN 174.43 ng/mL 10-Jan 07, 2025 10:20 AM [facility] IRON/TIBC PROFILE SERUM Specimen Type: SERUM No comment entered. Ordering Provider: EZ TAPIA Report Released Date/Time: Oct 22, 2024 02:14 PM Reporting Lab: [address] [address] Performing Lab: [address] [address] TIBC 323 ug/dL 250-450 TRANSFERRIN 258 mg/dL 173-360 IRON SATURATION 38 20-50 IRON 122 ug/dL 50-170 Jan 07, 2025 10:20 AM [facility] CBC BLOOD Specimen Type: BLOOD No comment entered. Ordering Provider: EZ TAPIA Report Released Date/Time: Oct 22, 2024 02:14 PM Reporting Lab: [place] [id number] [facility] [address] Performing Lab: [facility] [address] [place] [phone] WBC 5.6 10*3/uL 3.6-11.2 RBC 4.59 10*6/uL [...] 0.60 BASOPHILS, ABSOLUTE 0.06 10*3/uL 0.00-0. 20 Encounter Notes: All associated encounter notes This section contains the clinical notes associated to the Encounter. Date/Time Encounter Note(s) Provider Source Jan 29, 2025 11:13 AM NURSING NOTE: LOCAL TITLE: [facility] PCMM NOTE STANDARD TITLE: NURSING NOTE DATE OF NOTE: JAN 29, 2025@11:13 ENTRY DATE: JAN 29, 2025@11:13:49 AUTHOR: NICOLAS CHILDRESS EXP COSIGNER: URGENCY: STATUS: COMPLETED PCMM received for assignment to [facility]. Per chart review: Per 01/22/2025 [facility] HAS RELOCATED TO [place] AND WILL BE ESTABLISHING CARE THERE. PCMM for assignment to [facility] withdrawn. /tamera/ NICOLAS CHILDRESS TRAVELING COORDINATOR Signed: 01/29/2025 11:15 NICOLAS CHILDRESS [facility]
--- OUTSIDE RECORDS SUMMARY | 2025-03-22 22:01 | XMS_ITS | Encounter Summary ---
Author Name [facility] [place] [facility] [place] Address [address] [place] [address] Care Team Providers Care Car Rental Agent Name Role Phone VERNA BARRERA Primary Care [...] AID (WNR) Oct 23, 2016 MEDICAI D [id number] [phone] REBECA NUNES PATIENT Selected Encounter This section includes the information on record at [place] for the Encounter. Date/Time Encounter Type Encounter Description Reason Provider Source Jan 07, 2025 11:30 AM OFFICE O/P EST LOW 20 MIN ONCOLOGY/TUMOR ICD-10-CM E61.1 Iron deficiency EZ TAPIA Cecile Encounter Template Text not used by [place] Assessments - Encounter Diagnoses This section includes the primary and secondary diagnoses documented for the Encounter. Date/Time Primary/Secondary Diagnosis Diagnosis Name Provider Source Jan 17, 2025 08:04 PM PRIMARY Iron deficiency EZ TAPIA [facility] Plan of Treatment: Future Appointments (+ 6 months) and Future Tests (+/- 45 days) The Plan of Treatment section includes future care activities for the patient from all [place] [facility]. This section includes future appointments and future orders which are active, pending or scheduled. Future Appointments This section includes appointments that were scheduled to occur 6 months from the date of the Encounter, up to a maximum of 20 appointments. The data comes from all [place] treatment facilities. Appointment Date/Time Appointment Type Appointme nt Facility Name Apr 18, 2025 02:30 PM AMBULATORY - PSYCHIATRY [facility] Lab Results: +/- 30 days of [...] Type Comment Jan 07, 2025 10:20 AM [facility] FERRITIN SERUM Specimen Type: SERUM No comment entered. Ordering Provider: EZ TAPIA Report Released Date/Time: Oct 22, 2024 02:14 PM Reporting Lab: [facility] [address] [address] Performing Lab: [facility] [address] [address] FERRITIN 174.43 ng/mL 10-204 Jan 07, 2025 10:20 AM [facility] IRON/TIBC PROFILE SERUM Specimen Type: SERUM No comment entered. Ordering Provider: EZ TAPIA Report Released Date/Time: Oct 22, 2024 02:14 PM Reporting Lab: [facility] [address] [address] Performing Lab: [facility] [address] [address] TIBC 323 ug/dL 250-450 TRANSFERRIN 258 mg/dL 173-360 IRON SATURATION 38 20-50 IRON 122 ug/dL 50-170 Jan 07, 2025 10:20 AM [facility] CBC BLOOD Specimen Type: BLOOD No comment entered. Ordering Provider: EZ TAPIA Report Released Date/Time: Oct 22, 2024 02:14 PM Reporting Lab: [facility] [address] [address] Performing Lab: [address] [address] WBC 5.6 10*3/uL 3.6-11.2 RBC 4.59 10*6/uL [...] 0.00-0. 20 Dec 17, 2024 07:11 PM [facility] COMPREHENSIVE METABOLIC PANEL PLASMA Specimen Type: PLASMA Comment: No hemolysis noted. Ordering Provider: VICTOR M HOUGH Report Released Date/Time: Dec 17, 2024 06:44 PM Reporting Lab: [address] [address] Performing Lab: [address] [address] CREATININE 0.89 mg/dL 0.6-1.1 UREA NITROGEN 17.8 [...] 79.9 >60 Dec 17, 2024 07:11 PM [facility] CBC BLOOD Specimen Type: BLOOD No comment entered. Ordering Provider: VICTOR M HOUGH Report Released Date/Time: Dec 17, 2024 06:44 PM Reporting Lab: [address] [address] Performing Lab: [address] [address] WBC 7.5 10*3/uL 3.6-11.2 RBC 4.79 10*6/uL [...] 0.00-0. 20 Dec 17, 2024 07:11 PM [facility] TROPONIN I PLASMA Specimen Type: PLASM A Comment: No hemolysis noted. Ordering Provider: VICTOR M HOUGH Report Released Date/Time: Dec 17, 2024 06:44 PM Reporting Lab: [facility] [address] [facility] [address] Performing Lab: [facility] [address] [facility] [address] TROPONIN I <0.010 ng/mL 0-0.033 Social History: Smoking Status (Most current) and [...] 05:48 PM ORYX ADMIT TOBACCO SCREEN NO [facility] Tobacco Use History This section includes a history of the smoking, or tobacco-related health factors, that were collected on or before the date of the Encounter. The data comes from the [place] facility where the Encounter took place. Date/Time Smoking Status/Tobacco Use Comment F acility Jul 17, 2024 03:18 AM ORYX ADMIT TOBACCO SCREEN NO [facility] Nov 09, 2023 06:45 AM ORYX ADMIT TOBACCO SCREEN NO [facility] May 25, 2022 11:42 AM ORYX ADMIT TOBACCO SCREEN NO [facility] May 13, 2022 08:14 PM ORYX ADMIT TOBACCO SCREEN NO [facility] Apr 07, 2022 03:34 AM ORYX ADMIT TOBACCO SCREEN REFUSED [facility] Dec 20, 2021 12:44 PM ORYX ADMIT TOBACCO SCREEN NO [facility] Aug 23, 2021 08:22 PM ORYX ADMIT TOBACCO SCREEN NO [facility] Aug 12, 2021 06:24 PM ORYX ADMIT TOBACCO SCREEN NO [facility] May 12, 2008 06:16 PM LIFETIME NON-USER OF TOBACCO [facility] Jun 28, 2007 01:18 PM LIFETIME NON-USER OF TOBACCO [facility] May 03, 2006 10:56 AM LIFETIME NON-TOBACCO USER [facility] Dec 03, 2003 08:16 AM LIFETIME NON-TOBACCO USER [facility] Encounter Notes: All associated encounter notes This section contains the clinical notes associated to the Encounter. Date/Time Encounter Note(s) Provider Source February 28, 2025 03:26 PM ACCOUNTING OF DISC LOSURES NOTE: LOCAL TITLE: STATE PRESCRIPTION DRUG MONITORING PROGRAM STANDARD TITLE: ACCOUNTING OF DISCLOSURES NOTE DATE OF NOTE: FEBRUARY 28, 2025@15:26 ENTRY DATE: FEBRUARY 28, 2025@15:26:52 AUTHOR: VERNA BARRERA EXP COSIGNER: URGENCY: STATUS: COMPLETED [SPDM] The clinical justification for this PDMP query is to review controlled substances prescribed outside of the [facility], and any additional information that may become available, as an important component of standard clinical care, and in accordance with [facility] policy. *Date of Prescription Monitoring Program Query: February I reviewed patient's PDMP report for Schedule II, III, IV, or V medications from the following State PDMP [facility] *Findings: No prescription(s) for controlled substances outside the [facility] were found in the last 90 days. [END*] /es/ VERNA BARRERA MD Signed: 02/28/2025 15:27 VERNA BARRERA [facility] Jan 07, 2025 11:42 AM HEMATOLOGY AND ONC OLOGY OUTPATIENT NOTE: LOCAL TITLE: HEMATOLOGY ONCOLOGY OUTPATIENT FOLLOW UP ST STANDARD TITLE: HEMATOLOGY AND ONCOLOGY OUTPATIENT NOTE DATE OF NOTE: JAN 07, 2025@11:42 ENTRY DATE: JAN 07, 2025@11:42:03 AUTHOR: EZ TAPIA EXP COSIGNER: URGENCY: STATUS: COMPLETED HEMATOLOGY/ONCOLOGY CHIEF COMPLAINT: Non-anemic iron deficiency Rebeca Nunes is a 49 YOF with h/o hypothroidism, MASLD, anxiety, depression fibromyalgia, chronic pain syndrome, PHILLY, RLS/PLMD, BLE fasciotomies for compatment syndrome, B12 deficiency, obesity s/p 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 From initial consult 10/22/2024: [facility] admitted 06/2024 for acute on chronic leg pain of unknown origin. Found to be iron deficient with ferritin 11, Hgb ~13. Treated with IV iron dextran 1g (2024) and reports temporary improvement of leg symptoms. [...] EGD including esophageal dilation post bariatric surgery. INTERVAL HISTORY: Moving down near [facility] at the end of this month. [place], going through an amicable separation with and felt like the right time. She does note on-going terrible pain to L leg, waxes/wanes some, continues med mgmt (now including tylenol/codeine). She remains very fatigued but notes on-going sleep disturbances. REVIEW OF SYSTEMS: A clinically relevant ROS was completed and documented as per interval history PAST MEDICAL HISTORY 1) Family history of ischemic heart disease (SNOMED CT 794646067) 2) Migraine (SNOMED CT 84600705) 3) Vitamin D deficiency 4) Hypothyroidism 5) Low back pain 6) Depression 7) Mastodynia 8) Lumbar radiculopathy 9) Irritable bowel syndrome characterized by alternating bowel habit 10) Fibromyalgia 11) Chronic pain in female pelvis 12) Kidney stone 13) Insomnia 14) Compartment syndrome 15) Obesity ([facility] [id number]) 16) Arthritis 17) Intermittent palpitations 18) Chronic obstructive lung disease 19) Obstructive sleep apnea of adult 20) Poor pelvic muscle tone 21) Cervicalgia 22) Bacterial cellulitis 23) Overactive bladder 24) Iron deficiency MEDICATIONS Active Outpatient Medications (including Supplies): Active Outpatient Medications Status 1) CODEINE 30/ACETAMINOPHEN 300MG TAB TAKE 1 TABLET BY MOUTH ACTIVE EVERY 6 HOURS NEEDED CAUTION: DO NOT EXCEED 4000MG PER DAY ACETAMINOPHEN (APAP) FROM ALL MEDS. Indication: FOR PAIN 2) CYANOCOBALAMIN 1000MCG/ML INJ INJECT 1000MCG/1ML ACTIVE INTRAMUSCULARLY EVERY 2 WEEKS Indication: FOR VITAMIN B12 SUPPLEMENTATION 3) DULOXETINE HCL 30MG EC CAP TAKE ONE CAPSULE BY MOUTH ONCE A ACTIVE DAY DO NOT ABRUPTLY DISCONTINUE MEDICATION. TO BE TAKEN ALONG WITH 60MG FOR TOTAL OF 90MG DAILY Indication: FOR DEPRESSION 4) DULOXETINE HCL 60MG EC CAP TAKE ONE CAPSULE BY MOUTH ONCE A ACTIVE (S) DAY DO NOT ABRUPTLY DISCONTINUE MEDICATION. TO BE TAKEN ALONG WITH 30MG FOR TOTAL OF 90MG DAILY Indication: FOR DEPRESSION 5) FOLIC ACID 1MG TAB TAKE ONE TABLET BY MOUTH ONCE A DAY ACTIVE Indication: FOR FOLIC ACID SUPPLEMENTATION 6) GABAPENTIN 300MG CAP TAKE ONE CAPSULE BY MOUTH THREE TIMES A ACTIVE DAY NEEDED Indication: FOR PAIN 7) LEVOTHYROXINE NA 175MCG TAB TAKE ONE [...] NOTIFY PROVIDER. Indication: FOR OPIOID OVERDOSE 10) PROPRANOLOL HCL 10MG TAB TAKE ONE TABLET BY MOUTH THREE ACTIVE TIMES A DAY NEEDED Indication: ANXIETY 11) SYRINGE 3ML/NDL 23G 1.5IN USE 1 SYRINGE INTRAMUSCULARLY ACTIVE EVERY 2 WEEKS Indication: FOR INJECTION 12) TIZANIDINE HCL 4MG TAB TAKE ONE TABLET BY MOUTH THREE TIMES ACTIVE A DAY NEEDED Indication: FOR SPASTICITY 13) TRAZODONE HCL 100MG TAB TAKE ONE AND ONE-HALF TABLETS BY ACTIVE (S) MOUTH AT BEDTIME NEEDED Indication: FOR INSOMNIA ALLERGIES VITAMIN B12 1000MCG, PANTOPRAZOLE, AMOXICILLIN, FLONASE NASAL SOLUTION PREGABALIN, METHOCARBAMOL VITAL SIGNS Temperature: 97.9 F [36.6 C] (12/17/2024 18:41) Blood Pressure: 142/110 (12/17/2024 18:41) Pulse: 106 (12/17/2024 18:41) Respirations: 16 (12/17/2024 18:41) Weight: 182.2 lb [82.64 kg] (11/26/2024 12:35) BMI: 33.4 PHYSICAL EXAM General: In no apparent distress HEENT: NCAT Respiratory: Resp unlabored on RA Cardiovascular: No C/C/E Abdomen: Soft, non-distended, non-tender, +BS Musculoskeletal: Symmetrical, ambulatory Skin: No apparent lesions Neuro: Alert and oriented w/ normal station and coordination, no focal deficits LABS WBC 5.6 10*3/uL 01/07/2025 10:20 RBC 4.59 10*6/uL 01/07/2025 10:20 HGB 14.0 g/dL 01/07/2025 10:20 HCT 41.1 % 01/07/2025 10:20 MCV 89.5 fL 01/07/2025 10:20 MCH 30.5 pg 01/07/2025 10:20 MCHC 34.1 g/dL 01/07/2025 10:20 RDW 12.6 % 01/07/2025 10:20 PLT 296 10*3/uL 01/07/2025 10:20 MPV 9.9 fL 01/07/2025 10:20 NEUTROPHILS, AUTO % 52 % 01/07/2025 10:20 LYMPHOCYTES, AUTO % 38 % 01/07/2025 10:20 MONOCYTES, AUTO % 7 % 01/07/2025 10:20 EOSINOPHILS, AUTO % 2 % 01/07/2025 10:20 BASOPHILS, AUTO % 1 % 01/07/2025 10:20 NEUTROPHILS, ABSOLUTE 2.90 10*3/uL 01/07/2025 10:20 LYMPHOCYTES, ABSOLUTE 2.11 10*3/uL 01/07/2025 10:20 MONOCYTES, ABSOLUTE 0.38 10*3/uL 01/07/2025 10:20 EOSINOPHILS, ABSOLUTE 0.13 10*3/uL 01/07/2025 10:20 BASOPHILS, ABSOLUTE 0.06 10*3/uL 01/07/2025 10:20 SODIUM 138 mEq/L 12/17/2024 19:11 POTASSIUM 4.2 [...] 19:11 EGFR (CKD-EPI 2020) 79.9 12/17/2024 19:11 2.0 mg/dL (11/08/24 06:00) PHOSPHOROUS 4.9 H mg/dL 11/08/2024 06:00 LDH 302 H U/L 09/26/2024 07:39 TIBC 323 ug/dL 01/07/2025 10:20 IRON 122 ug/dL 01/07/2025 10:20 FERRITIN 174.43 ng/mL 01/07/2025 10:20 B12 440 pg/mL 10/22/2024 12:04 pg/ml FOLATE (STL-MA) 8.8 ng/mL 2024 06:00 No PSA (LAST 10 5Y) EO data found IMAGING ASSESSMENT & PLAN # Non-anemic iron deficiency Noted to have ferritin 11 (Hgb ~13) during hospitalization for acute on chronic leg pain 06/2024, s/p IV iron dextran 1g on 2024. Long-standing h/o borderline iron stores, intolerant of PO iron d/t dyspepsia. More recently, s/p bariatric surgery 05/2023. -- Labs today with Hgb 14, ferritin 174 -- continues some dietary efforts, remains off PO and no role for IV at current replete levels -- B12 440 (09/2024; improved from prior borderline) -- cont B12 mgmt with PCP [facility] is relocating to [place] at the end of this month. Discussed traveling vet hematology consult although with no immediate concerns, rec to establish with PCP -- would recheck iron stores for further monitoring ~03/2025. If recurrent deficiency, consider hematology referral at that point. Agreeable to this plan. /tamera/ EZ TAPIA Nurse Practitioner Signed: 01/07/2025 12:03 EZ TAPIA [facility]
--- OUTSIDE RECORDS SUMMARY | 2025-03-22 22:01 | XMS_ITS | Encounter Summary ---
Author Name [facility] [place] Organization [place] Address [address] [place] [address] Care Team Providers Care Auto Winder Name Role Phone VERNA BARRERA Primary Care [...] AID (WNR) Oct 23, 2016 MEDICAI D [id number] [phone] GERDA NUNES PATIENT Selected Encounter This section includes the information on record at [place] for the Encounter. Date/Time Encounter Type Encounter Description Reason Provider Source Jan 03, 2025 02:52 PM TARGETED CASE MANAGEMENT ADMIN PAT ACTIVTIES (MASNONCT) MARY APPLE IHCecile Encounter Template Text not used by [place] Plan of Treatment: Future Appointments (+ 6 [...] 20 appointments. The data comes from all [place] treatment facilities. Appointment Date/Time Appointment Type Appointme nt Facility Name Jan 07, 2025 11:30 AM AMBULATORY - MEDICINE [facility] Apr 18, 2025 02:30 PM AMBULATORY - PSYCHIATRY [facility] Lab Results: +/- 30 days of the encounter This section includes the Chemistry and Hematology Lab Results on record with [place] for the patient. Radiology Reports and Pathology Reports are provided separately, in subsequent sections. Lab Results This section contains the Chemistry/Hematology Results that were resulted 30 days before or 30 daysafter the date of the Encounter. Date/Time Source Result Type Result - Unit Interpretation Reference Range Specimen Type Comment Jan 07, 2025 10:20 AM [facility] FERRITIN SERUM Specimen Type: SERUM No comment entered. Ordering Provider: EZ TAPIA Report Released Date/Time: Oct 22, 2024 02:14 PM Reporting Lab: [address] [address] Performing Lab: [facility] [address] [facility] [address] FERRITIN 174.43 ng/mL Jan 07, 2025 10:20 AM [facility] IRON/TIBC PROFILE SERUM Specimen Type: SERUM No comment entered. Ordering Provider: EZ TAPIA Report Released Date/Time: Oct 22, 2024 02:14 PM Reporting Lab: [address] [address] Performing Lab: [facility] [address] [place] [address] TIBC 323 ug/dL 250-450 TRANSFERRIN 258 mg/dL 173-360 IRON SATURATION 38 20-50 IRON 122 ug/dL 50-170 Jan 07, 2025 10:20 AM [facility] CBC BLOOD Specimen Type: BLOOD No comment entered. Ordering Provider: EZ TAPIA Report Released Date/Time: Oct 22, 2024 02:14 PM Reporting Lab: [address] [address] Performing Lab: [address] [address] WBC 5.6 10*3/uL 3.6-11.2 RBC 4.59 10*6/uL [...] 0.00-0. 20 Dec 17, 2024 07:11 PM [facility] TROPONIN I PLASMA Specimen Type: PLASM A Comment: No hemolysis noted. Ordering Provider: VICTOR M HOUGH Report Released Date/Time: Dec 17, 2024 06:44 PM Reporting Lab: [address] [address] Performing Lab: [address] [address] TROPONIN I <0.010 ng/mL 0-0.033 Dec 17, 2024 07:11 PM [facility] COMPREHENSIVE METABOLIC PANEL PLASMA Specimen Type: PLASMA Comment: No hemolysis noted. Ordering Provider: VICTOR M HOUGH Report Released Date/Time: Dec 17, 2024 06:44 PM Reporting Lab: [address] [address] Performing Lab: [address] [address] CREATININE 0.89 mg/dL 0.6-1.1 UREA NITROGEN 17.8 [...] 79.9 >60 Dec 17, 2024 07:11 PM [facility] CBC BLOOD Specimen Type: BLOOD No comment entered. Ordering Provider: VICTOR M HOUGH Report Released Date/Time: Dec 17, 2024 06:44 PM Reporting Lab: [facility] [address] [place] [address] Performing Lab: [place] [address] [facility] [address] WBC 7.5 10*3/uL 3.6-11.2 RBC 4.79 10*6/uL [...] 0.60 BASOPHILS, ABSOLUTE 0.08 10*3/uL 0.00-0. 20 Social History: Smoking Status (Most current) and Tobacco Use (All prior to encounter date) This section includes the most current, and the historical, smoking and tobacco- related health factors from the [place] facility where the Encounter took place. Current Smoking Status This section includes the most current smoking, or tobacco-related health factor, from the [place] facility where the Encounter took place. Date/Time Current Smoking Status Comment Jessica sidhu Nov 07, 2024 05:48 PM ORYX ADMIT TOBACCO SCREEN NO [facility] Tobacco Use History This section includes a history of the smoking, or tobacco-related health factors, that were collected on or before the date of the Encounter. The data comes from the [place] facility where the Encounter took place. Date/Time Smoking Status/Tobacco Use Comment Evelyn halima Jul 17, 2024 03:18 AM ORYX ADMIT TOBACCO SCREEN NO [facility] Nov 09, 2023 06:45 AM ORYX ADMIT TOBACCO SCREEN NO [facility] May 25, 2022 11:42 AM ORYX ADMIT TOBACCO SCREEN NO [facility] May 13, 2022 08:14 PM ORYX ADMIT TOBACCO SCREEN NO [facility] Apr 07, 2022 03:34 AM ORYX ADMIT TOBACCO SCREEN REFUSED [facility] Dec 20, 2021 12:44 PM ORYX ADMIT TOBACCO SCREEN NO [facility] Aug 23, 2021 08:22 PM ORYX ADMIT TOBACCO SCREEN NO [facility] Aug 12, 2021 06:24 PM ORYX ADMIT TOBACCO SCREEN NO [facility] May 12, 2008 06:16 PM LIFETIME NON-USER OF TOBACCO [facility] Jun 28, 2007 01:18 PM LIFETIME NON-USER OF TOBACCO [facility] May 03, 2006 10:56 AM LIFETIME NON-TOBACCO USER [facility] Dec 03, 2003 08:16 AM LIFETIME NON-TOBACCO USER [facility] Encounter Notes: All associated encounter notes This section contains the clinical notes associated to the Encounter. Date/Time Encounter Note(s) Provider Source Jan 03, 2025 02:52 PM PRIMARY CARE NOTE: LOCAL TITLE: [facility] TRAVELING NOTE ST STANDARD TITLE: PRIMARY CARE NOTE DATE OF NOTE: JAN 03, 2025@14:52 ENTRY DATE: JAN 03, 2025@14:53:03 AUTHOR: MARY APPLE EXP COSIGNER: URGENCY: STATUS: COMPLETED Traveling/Relocating Care Coordination Permanent Relocation - Alternate Facility has relocated and need to establish care in: [facility] reviewed and forward for care coordination. will be contacted to schedule a visit by the receiving facility. /tamera/ MARY APPLE REGISTERED NURSE, HOME TELEHEALTH COORDINATOR Signed: 01/03/2025 14:54 MARY APPLE [facility]
--- OUTSIDE RECORDS SUMMARY | 2025-03-22 22:01 | XMS_ITS | Encounter Summary ---
Author Name [facility] [place] Organization [facility] [place] Address [address] [place] [address] Care Team Providers Care Line Out Worker Name Role Phone VERNA BARRERA Primary Care [...] AID (WNR) Oct 23, 2016 MEDICAI D [id number] [phone] GERDA NUNES PATIENT Selected Encounter This section includes the information on record at [place] for the Encounter. Date/Time Encounter Type Encounter Description Reason Provider Source Aug 09, 2024 04:31 PM Outpatient Encounter GENERAL INTERNAL MEDICINE [facility] Encounter Template Text not used by [place] Plan of Treatment: Future Appointments (+ 6 months) and Future Tests (+/- 45 days) The Plan of Treatment section includes future care activities for the patient from all [place] treatmentfacilities. This section includes future appointments and future orders which are active, pending or scheduled. Future Appointments This section includes appointments that were scheduled to occur 6 months from the date of the Encounter, up to a maximum of 20 appointments. The data comes from all [facility] treatment facilities. Appointment Date/Time Appointment Type Appointme nt Facility Name Oct 22, 2024 11:30 AM AMBULATORY - MEDICINE [facility] Nov 07, 2024 08:41 AM AMBULATORY - MEDICINE [facility] Nov 12, 2024 10:30 AM AMBULATORY - MEDICINE [facility] Nov 14, 2024 09:30 AM AMBULATORY - MEDICINE [facility] Nov 26, 2024 12:30 PM AMBULATORY - SURGERY . [facility] Dec 17, 2024 06:28 PM AMBULATORY - MEDICINE [facility] Jan 02, 2025 01:00 PM AMBULATORY - PSYCHIATRY [facility] Jan 07, 2025 11:30 AM AMBULATORY - MEDICINE [facility] Active, Pending, and Scheduled Orders This section includes a listing of several types of active, pending, and scheduled orders, including clinic medications orders, diagnostic test orders, procedure orders and consult orders; where the start date of the order is 45 days before the date of the Encounter or 45 days after the date of theEncounter. The data comes from all [facility]. Test Date/Time Test Type Test Details Facility Name Jul 11, 2024 04:51 PM Laboratory - Chemi stry Order TSH W/ REFLEX FT4 (STL) GREEN LI-HEP PLASMA WC [facility] Jul 12, 2024 12:00 [...] SP ONCE [facility] Jul 12, 2024 12:00 AM Laboratory - Chemi stry Order B12 GOLD/RED SST SERUM SP [facility] Jul 12, 2024 12:00 AM Laboratory - Chemi stry Order FOLATE (STL-MA) GOLD/RED SST SERUM SP [facility] Jul 16, 2024 11:36 PM Laboratory - Chemi stry Order MRSA SURVL NARES DNA NARES WC [facility] Lab Results: +/- 30 days of [...] Type Comment Jul 20, 2024 11:28 AM [facility] GLUCOSE,BLOOD-poct (STL) BLOOD Specimen Type: BLOOD Comment: Test Performed by: [id number] Meter #: [id number] Ordering Provider: KRYSTIAN KUMARI Report Released Date/Time: Jul 20, 2024 11:50 AM Reporting Lab: [facility] [address] [address] Performing Lab: [facility] [address] [address] GLUCOSE,BLOOD-poct (STL) 78 mg/dL 72-99 Jul 20, 2024 08:02 AM [facility] MAGNESIUM PLASMA Specimen Type: PLASM A Comment: No hemolysis noted. Ordering Provider: MICHAEL FELIZ Report Released Date/Time: Jul 17, 2024 03:01 PM Reporting Lab: [facility] [address] [address] Performing Lab: [facility] [address] [address] MAGNESIUM 2.1 mg/dL 1.6-2.6 Jul 20, 2024 08:02 AM [facility] RENAL PANEL PLASMA Specimen Type: PLASM A Comment: No hemolysis noted. Ordering Provider: MICHAEL FELIZ Report Released Date/Time: Jul 17, 2024 03:01 PM Reporting Lab: [facility] [address] Performing Lab: [address] [address] CREATININE 0.81 mg/dL 0.6-1.1 UREA NITROGEN 16.7 mg/dL 9.0-25.0 GLUCOSE 99 mg/dL 72-99 SODIUM 142 meq/L 136-145 POTASSIUM 4.2 meq/L 3.5-5 CHLORIDE 108 meq/L H 98-107 CARBON DIOXIDE 25 meq/L 22-31 CALCIUM 9.6 mg/dL 8.4-10.4 PHOSPHOROUS 3.9 mg/dL 2.3-4.7 ALBUMIN 3.7 g/dL 3.4-5 EGFR (CKD-EPI 2020) 89.5 >60 Jul 19, 2024 04:23 PM [facility] GLUCOSE,BLOOD-poct (STL) BLOOD Specimen Type: BLOOD Comment: Test Performed by: [id number] Meter #: [id number] Ordering Provider: KRYSTIAN KUMARI Report Released Date/Time: Jul 19, 2024 04:54 PM Reporting Lab: [address] [address] Performing Lab: [address] [address] GLUCOSE,BLOOD-poct (STL) 74 mg/dL 72-99 Jul 19, 2024 11:32 AM [facility] GLUCOSE,BLOOD-poct (STL) BLOOD Specimen Type: BLOOD Comment: Test Performed by: [id number] Meter #: [id number] Ordering Provider: KRYSTIAN KUMARI Report Released Date/Time: Jul 19, 2024 11:55 AM Reporting Lab: [address] [address] Performing Lab: [address] [address] GLUCOSE,BLOOD-poct (STL) 78 mg/dL 72-99 Jul 19, 2024 06:59 AM [facility] MAGNESIUM PLASMA Specimen Type: PLASM A Comment: No hemolysis noted. Ordering Provider: MICHAEL FELIZ Report Released Date/Time: Jul 17, 2024 03:01 PM Reporting Lab: [facility] [address] [place] [address] Performing Lab: [address] [address] MAGNESIUM 2.1 mg/dL 1.6-2.6 Jul 19, 2024 06:59 AM [facility] RENAL PANEL PLASMA Specimen Type: PLASM A Comment: No hemolysis noted. Ordering Provider: MICHAEL FELIZ Report Released Date/Time: Jul 17, 2024 03:01 PM Reporting Lab: [address] [address] Performing Lab: [address] [address] CREATININE 0.88 mg/dL 0.6-1.1 UREA NITROGEN 19.2 mg/dL 9.0-25.0 GLUCOSE 52 mg/dL L 72-99 SODIUM 143 meq/L 136-145 POTASSIUM 3.5 meq/L 3.5-5 CHLORIDE 108 meq/L H 98-107 CARBON DIOXIDE 26 meq/L 22-31 CALCIUM 10.0 mg/dL 8.4-10.4 PHOSPHOROUS 3.8 mg/dL 2.3-4.7 ALBUMIN 4.1 g/dL 3.4-5 EGFR (CKD-EPI 2020) 81.0 >60 Jul 19, 2024 06:59 AM [facility] CBC BLOOD Specimen Type: BLOOD No comment entered. Ordering Provider: MICHAEL FELIZ Report Released Date/Time: Jul 17, 2024 03:01 PM Reporting Lab: [address] [address] Performing Lab: [address] [address] WBC 4.6 10*3/uL 3.6-11.2 RBC 4.82 10*6/uL [...] 0.05 10*3/uL 0.00-0. 20 2024 06:35 AM [facility] MAGNESIUM PLASMA Specimen Type: PLASM A Comment: No hemolysis noted. Ordering Provider: MICHAEL FELIZ Report Released Date/Time: Jul 17, 2024 03:01 PM Reporting Lab: [facility] [address] [facility] [address] Performing Lab: [facility] [address] [place] [address] MAGNESIUM 2.2 mg/dL 1.6-2.6 2024 06:35 AM [facility] B12 SERUM Specimen Type: SERUM No comment entered. Ordering Provider: MICHAEL FELIZ Report Released Date/Time: Jul 17, 2024 03:01 PM Reporting Lab: [facility] [address] [facility] [address] Performing Lab: [facility] [address] [facility] [address] B12 194 pg/mL L 213-816 2024 06:35 AM [facility] FERRITIN SERUM Specimen Type: SERUM No comment entered. Ordering Provider: MICHAEL FELIZ Report Released Date/Time: Jul 17, 2024 03:01 PM Reporting Lab: [facility] [address] [facility] [address] Performing Lab: [facility] [address] [facility] [address] FERRITIN 11.54 ng/mL 10-204 2024 06:35 AM [facility] IRON/TIBC PROFILE SERUM Specimen Type: SERUM No comment entered. Ordering Provider: MICHAEL FELIZ Report Released Date/Time: Jul 17, 2024 03:01 PM Reporting Lab: [facility] [address] [address] Performing Lab: [facility] [address] [place] [address] TIBC 420 ug/dL 250-450 TRANSFERRIN 336 mg/dL 173-360 IRON SATURATION 11 L 20-50 IRON 45 ug/dL L 50-170 2024 06:35 AM [facility] FOLATE ([facility]) SERUM Specimen Type: SERUM No comment entered. Ordering Provider: MICHAEL FELIZ Report Released Date/Time: Jul 17, 2024 03:01 PM Reporting Lab: [facility] [address] [facility] [address] Performing Lab: [address] [address] FOLATE (L-MN) 8.8 ng/mL 7-20 2024 06:35 AM [facility] VITAMIN D, 25-HYDROXY SERUM Specimen Type: SE RUM No comment entered. Ordering Provider: MICHAEL FELIZ Report Released Date/Time: Jul 17, 2024 03:49 PM Reporting Lab: [facility] [address] [facility] [address] Performing Lab: [facility] [address] [place] [phone] VITAMIN D, 25-HYDROXY 39.3 ng/mL 30-96 2024 06:35 AM [facility] CBC BLOOD Specimen Type: BLOOD No comment entered. Ordering Provider: MICHAEL FELIZ Report Released Date/Time: Jul 17, 2024 03:01 PM Reporting Lab: [facility] [address] [facility] [address] Performing Lab: [address] [address] WBC 5.6 10*3/uL 3.6-11.2 RBC 4.41 10*6/uL [...] 0.05 10*3/uL 0.00-0. 20 2024 06:35 AM [facility] RENAL PANEL PLASMA Specimen Type: PLASM A Comment: No hemolysis noted. Ordering Provider: MICHAEL FELIZ Report Released Date/Time: Jul 17, 2024 03:01 PM Reporting Lab: [place] [address] [facility] [address] Performing Lab: [address] [address] CREATININE 0.85 mg/dL 0.6-1.1 UREA NITROGEN 20.0 mg/dL 9.0-25.0 GLUCOSE 91 mg/dL 72-99 SODIUM 142 meq/L 136-145 POTASSIUM 4.2 meq/L 3.5-5 CHLORIDE 108 meq/L H 98-107 CARBON DIOXIDE 26 meq/L 22-31 CALCIUM 9.6 mg/dL 8.4-10.4 PHOSPHOROUS 4.9 mg/dL H 2.3-4.7 ALBUMIN 3.9 g/dL 3.4-5 EGFR (CKD-EPI 2020) 84.5 >60 Jul 17, 2024 08:37 PM [facility] VITAMIN B1 PLASMA Specimen Type: PLASM A Comment: Vitamin supplementation within 24 hours prior to blood draw may affect the accuracy of the results. This test was developed and its analytical performance characteristics have been determined by [facility] [place]. It has not been cleared or approved by the U.S. Food and Drug Administration. This assay has been validated pursuant to the CLIA regulations and is used for clinical purposes. Test Performed by [facility], [facility], [address] [place] [address] Remi Dos Santos M.D., Ph.D., Director of Laboratories , CLIA [id number] Ordering Provider: MICHAEL FELIZ Report Released Date/Time: Jul 17, 2024 04:40 PM Reporting Lab: [facility] [address] [facility] [address] Performing Lab: [facility] [address] [facility] VITAMIN B1 13 nmol/L 8-30 Jul 17, 2024 06:48 AM [facility] TSH (MA-PB) SERUM Specimen Type: SERUM No comment entered. Ordering Provider: REMINGTON COTA Report Released Date/Time: Jul 17, 2024 03:52 AM Reporting Lab: [facility] [address] [facility] [address] Performing Lab: [facility] [address] [address] TSH 3.837 u[IU]/mL 0.47-5 Jul 17, 2024 06:48 AM [facility] BASIC METABOLIC PANEL PLASMA Specimen Type: PL ASMA Comment: No hemolysis noted. Ordering Provider: REMINGTON COTA Report Released Date/Time: Jul 16, 2024 11:36 PM Reporting Lab: [facility] [address] [place] [phone] Performing Lab: [address] [address] CREATININE 0.89 mg/dL 0.6-1.1 UREA NITROGEN 14.1 mg/dL 9.0-25.0 GLUCOSE 86 mg/dL 72-99 SODIUM 144 meq/L 136-145 POTASSIUM 3.5 meq/L 3.5-5 CHLORIDE 109 meq/L H 98-107 CARBON DIOXIDE 24 meq/L 22-31 CALCIUM 9.7 mg/dL 8.4-10.4 EGFR (CKD-EPI 2020) 80.4 >60 Jul 17, 2024 06:48 AM [facility] CBC BLOOD Specimen Type: BLOOD No comment entered. Ordering Provider: REMINGTON COTA Report Released Date/Time: Jul 16, 2024 11:36 PM Reporting Lab: [address] [address] Performing Lab: [address] [address] WBC 6.0 10*3/uL 3.6-11.2 RBC 4.55 10*6/uL [...] 0.00-0. 20 Jul 16, 2024 11:44 PM [facility] MRSA SURVL NARES DNA NARES Specimen [...] Jul 16, 2024 11:36 PM Reporting Lab: [place] [address] Performing Lab: [address] [address] MRSA SURVL NARES DNA Negative Negative Jul 16, 2024 04:15 PM [facility] TEST URINE (MA-STL) URINE Specimen Type: URINE No comment entered. Ordering Provider: ROBERTA RIVAS Report Released Date/Time: Jul 16, 2024 01:23 PM Reporting Lab: [address] [address] Performing Lab: [address] [address] Qualitative Test NEG NEGAT MISAEL Jul 16, 2024 04:15 PM [facility] URINALYSIS W/ CX REFLEX (STL-PB) URINE Specim en Type: URINE No comment entered. Ordering Provider: ROBERTA RIVAS Report Released Date/Time: Jul 16, 2024 01:23 PM Reporting Lab: [address] [address] Performing Lab: [address] [address] URINE COLOR Yellow Yellow U.BILIRUBIN Negative mg/dL [...] 1.026 1.005-1.029 Jul 16, 2024 02:30 PM [facility] CPK PLASMA Specimen Type: PLASM A Comment: No hemolysis noted. Ordering Provider: ROBERTA RIVAS Report Released Date/Time: Jul 16, 2024 01:23 PM Reporting Lab: [address] [address] Performing Lab: [address] [address] CPK 92 U/L 29-168 Jul 16, 2024 02:30 PM [facility] MAGNESIUM PLASMA Specimen Type: PLASM A Comment: No hemolysis noted. Ordering Provider: ROBERTA RIVAS Report Released Date/Time: Jul 16, 2024 01:23 PM Reporting Lab: [facility] [address] [place] [phone] Performing Lab: [facility] [address] [place] [address] MAGNESIUM 2.0 mg/dL 1.6-2.6 Jul 16, 2024 02:30 PM [facility] PHOSPHOROUS PLASMA Specimen Type: PLASM A Comment: No hemolysis noted. Ordering Provider: ROBERTA RIVAS Report Released Date/Time: Jul 16, 2024 01:23 PM Reporting Lab: [facility] [address] [place] [address] Performing Lab: [facility] [address] [place] [address] PHOSPHOROUS 3.4 mg/dL 2.3-4.7 Jul 16, 2024 02:30 PM [facility] COMPREHENSIVE METABOLIC PANEL PLASMA Specimen Type: PLASMA Comment: No hemolysis noted. Ordering Provider: ROBERTA RIVAS Report Released Date/Time: Jul 16, 2024 01:23 PM Reporting Lab: [address] [address] Performing Lab: [address] [phone] CREATININE 0.86 mg/dL 0.6-1.1 UREA NITROGEN 15.1 [...] 83.8 >60 Jul 16, 2024 02:30 PM [facility] CBC BLOOD Specimen Type: BLOOD No comment entered. Ordering Provider: ROBERTA RIVAS Report Released Date/Time: Jul 16, 2024 01:23 PM Reporting Lab: [address] [address] Performing Lab: [address] [address] WBC 6.3 10*3/uL 3.6-11.2 RBC 4.76 10*6/uL [...] 0.60 BASOPHILS, ABSOLUTE 0.07 10*3/uL 0.00-0. 20 Social History: Smoking Status (Most current) and Tobacco Use (All prior to encounter date) This section includes the most current, and the historical, smoking and tobacco- related health factors from the [place] facility where the Encounter took place. Current Smoking Status This section includes the most current smoking, or tobacco-related health factor, from the [place] facility where the Encounter took place. Date/Time Current Smoking Status Comment Jessica sidhu Jul 17, 2024 03:18 AM ORYX ADMIT TOBACCO SCREEN NO [facility] Tobacco Use History This section includes a history of the smoking, or tobacco-related health factors, that were collected on or before the date of the Encounter. The data comes from the [place] facility where the Encounter took place. Date/Time Smoking Status/Tobacco Use Comment Evelyn varghese Nov 09, 2023 06:45 AM ORYX ADMIT TOBACCO SCREEN NO [facility] May 25, 2022 11:42 AM ORYX ADMIT TOBACCO SCREEN NO [facility] May 13, 2022 08:14 PM ORYX ADMIT TOBACCO SCREEN NO [facility] Apr 07, 2022 03:34 AM ORYX ADMIT TOBACCO SCREEN REFUSED [facility] Dec 20, 2021 12:44 PM ORYX ADMIT TOBACCO SCREEN NO [facility] Aug 23, 2021 08:22 PM ORYX ADMIT TOBACCO SCREEN NO [facility] Aug 12, 2021 06:24 PM ORYX ADMIT TOBACCO SCREEN NO [facility] May 12, 2008 06:16 PM LIFETIME NON-USER OF TOBACCO [facility] Jun 28, 2007 01:18 PM LIFETIME NON-USER OF TOBACCO [facility] May 03, 2006 10:56 AM LIFETIME NON-TOBACCO USER [facility] Dec 03, 2003 08:16 AM LIFETIME NON-TOBACCO USER [facility] Radiology Reports: +/- 30 days of the [...] the Encounter. The data comes from all [facility] facilities. Date/Time Radiology Report Provider Source Jul 16, 2024 02:59 PM TIBIA & FIBULA,LEF T, 2 VIEWS: MANJUGERDA SERRA [facility] [id number] -[id number] F Exm Date: JUL 16, 2024@14:59 Req Phys: ROBERTA RIVAS Pat Loc: -EMERGENCY DEPT 2ND SHIFT (R Img Loc: -MAIN RADIOLOGY SUITE Service: Unknown Screen: Patient answered no [facility], [facility] [address] [place] [address] (Case [id number] COMPLETE) TIBIA & FIBULA,LEFT, 2 VIEWS (RAD Detailed) CPT:52808 Proc Modifiers : LEFT Reason for Study: left calf pain, rule out foregin body Clinical History: Report Status: Verified Date Reported: JUL 16, 2024 Date Verified: JUL 16, 2024 Developer Support Engineer E-Sig:/ES/INDIO SHARMA Report: EXAMINATION: TIBIA & FIBULA,LEFT, [...] radiopaque foreign bodies. Primary Interpreting Staff: INDIO SHARMA Diagnostic Radiologist (Developer Support Engineer) /INDIO BRANDT [facility] Jul 16, 2024 02:47 PM US EXTREMITY VEINS UNILAT OR LTD: GERDA NUNES [facility] [id number] -1975 F Exm Date: JUL 16, 2024@14:47 Req Phys: ROBERTA RIVAS Loc: BIN-EMERGENCY DEPT 2ND SHIFT (R Img Loc: -ULTRASOUND Service: Unknown Screen: Patient answered no [facility], [facility] [address] [place] [address] (Case [id number] COMPLETE) US EXTREMITY VEINS UNILAT OR LTD (US Detailed) CPT:70625 Reason for Study: left leg pain Clinical History: Report Status: Verified Date Reported: JUL 16, 2024 Date Verified: JUL 16, 2024 Developer Support Engineer E-Sig:/ES/INDIO SHARMA Report: Case [id number] US EXTREMITY VEINS UNILAT OR LTD Comparison: Left lower extremity ultrasound 11/09/2023. Findings: The left lower extremity deep veins are compressible throughout their course. No thrombi are visualized. Venous flow velocities demonstrate normal variation with respiration and augmentation. Impression: No evidence of deep venous thrombosis of the left lower extremity deep veins. Dictated by Kanika Lucero M.D. (president ceo & founder). I, Indio Sharma, have reviewed the images and report and concur with these findings. Primary Interpreting Staff: INDIO SHARMA Diagnostic Radiologist (Developer Support Engineer) Primary Interpreting Resident: KANIKA LUCERO Diagnostic Basket Hand Braider /INDIO ABARCA [place] [facility] Encounter Notes: All associated encounter notes This section contains the clinical notes associated to the Encounter. Date/Time Encounter Note(s) Provider Source Aug 09, 2024 04:31 PM NONVA NOTE: LOCAL TITLE: COMMUNITY CARE-CARE COORDINATION PLAN NOTE 6[address] STANDARD TITLE: NONVA NOTE DATE OF NOTE: AUG 09, 2024@16:31 ENTRY DATE: AUG 09, 2024@16:32:13 AUTHOR: COBY LUCAS EXP COSIGNER: URGENCY: STATUS: COMPLETED Community Care Consult: STL SLEEP STUDY Consult No: [id number] [facility] Referral #: Chief Complaint: Restless leg syndrome left greater than right associatedwith pain Patient Admitted? No Level of Care Coordination Moderate Care Coordination was determined from: Chart Review Facility Community Care Office Contact Care Coordination Point of Contact: Coby Baldwin Services: Basic Care Coordination Services Monitoring and coordination of Rehab/PT Services Direct communication to referring provider Care management, if appropriate Plan: Type of Service: Evaluation and Treatment Patient History / Clinical Findings / Diagnosis (Co-Morbidities): Admitted for acute on chronic left leg pain, found to be iron deficient and was repleted with iron dextran 1 g infusion. Weaned off of pramipexole in favor of gabapentin was discharged on 300 mg nightly for control of RLS symptoms. Also has moderate sleep apnea and is not compliant with CPAP. She has had a PSG showing AHI of 12.7 with recommendations for CPAP titration study which she did not complete. Procedure (1): None Moderate obstructive sleep apnea, restless leg syndrome and periodic limb movement disorder /es/ COBY [place] RN REGISTERED NURSE Signed: 08/15/2024 04:20 COBY LUCAS [facility]
--- OUTSIDE RECORDS SUMMARY | 2025-03-22 22:01 | XMS_ITS | Encounter Summary ---
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 Date/Time Encounter Type Encounter Description Reason Pro vider Source Aug 30, 2024 10:53 AM Outpatient Encounter GENERAL INTERNAL MEDICINE [facility] Encounter Template Text not used by [place] Plan of Treatment: Future Appointments (+ 6 months) and Future Tests (+/- 45 days) The Plan of Treatment section includes future care activities for the patient from all [place] treatmentfacilities. This section includes future appointments and future orders which are active, pending or scheduled. Future Appointments This section includes appointments that were scheduled to occur 6 months from the date of the Encounter, up to a maximum of 20 appointments. The data comes from all [place] treatment facilities. Appointment Date/Time Appointment Type Appointme nt Facility Name Oct 22, 2024 11:30 AM AMBULATORY - MEDICINE [facility] Nov 07, 2024 08:41 AM AMBULATORY - MEDICINE [facility] Nov 12, 2024 10:30 AM AM[facility]ULATORY - [facility]INE [facility] Nov 14, 2024 09:30 AM AMBULATORY - MEDICINE [facility] Nov 26, 2024 12:30 PM AMBULATORY - SURGERY [facility] Dec 17, 2024 06:28 PM AMBULATORY - MEDICINE [facility] Jan 02, 2025 01:00 PM AMBULATORY - PSYCHIATRY [facility] Jan 07, 2025 11:30 AM AMBULATORY - MEDICINE [facility] Active, Pending, and Scheduled Orders This section includes a listing of several types of active, pending, and scheduled orders, including clinic medications orders, diagnostic test orders, procedure orders and consult orders; where the start date of the order is 45 days before the date of the Encounter or 45 days after the date of theEncounter. The data comes from all [facility]. Test Date/Time Test Type Test Details Facility Name Jul 16, 2024 11:36 PM Laboratory - Chemi stry Order MRSA SURVL NARES DNA NARES [facility] Sep 24, 2024 03:02 PM Laboratory - Chemi stry Order TSH W/ REFLEX FT4 (STL) GREEN LI-HEP PLASMA [facility] Lab Results: +/- 30 days of the encounter This section includes the Chemistry and Hematology Lab Results on record with [place] for the patient. Radiology Reports and Pathology Reports are provided separately, in subsequent sections. Lab Results This section contains the Chemistry/Hematology Results that were resulted 30 days before or 30 daysafter the date of the Encounter. Date/Time Source Result Type Result - Unit Interpretation Reference Range Specimen Type Comment Sep 26, 2024 07:39 AM [facility] LDH PLASMA Specimen Type: PLASMA No comment entered. Ordering Provider: VERNA BARRERA Report Released Date/Time: Sep 26, 2024 07:39 AM Reporting Lab: [address] [id number] Performing Lab: [facility] [address] [facility] [address] LDH 302 U/L H 125-243 Sep 26, 2024 07:39 AM [facility] B12 SERUM Specimen Type: SERUM No comment entered. Ordering Provider: VERNA BARRERA Report Released Date/Time: Sep 26, 2024 07:39 AM Reporting Lab: [facility] [address] [place] [id number] Performing Lab: [facility] [address] [place] [id number] B12 228 pg/mL 213-816 Sep 26, 2024 07:39 AM [facility] IRON/TIBC PROFILE SERUM Specimen Type: SERUM No comment entered. Ordering Provider: VERNA BARRERA Report Released Date/Time: Sep 26, 2024 07:39 AM Reporting Lab: [address] [address] Performing Lab: [address] [address] TIBC 313 ug/dL 250-450 TRANSFERRIN 250 mg/dL 173-360 IRON SATURATION 49 20-50 IRON 154 ug/dL 50-170 Sep 26, 2024 07:39 AM [facility] RETICULOCYTE PANEL BLOOD Specimen Type: BLOOD No comment entered. Ordering Provider: VERNA BARRERA Report Released Date/Time: Sep 26, 2024 07:39 AM Reporting Lab: [facility] [address] [place] [id number] Performing Lab: [address] [address] RETIC RATIO 1.69 0.50-2.30 IRF 6.6 2.3-13.4 RETICULOCYTE HEMOGLOBIN EQUIVALENT 33.8 pg 28.2-36.6 RETIC COUNT,ABS 0.083 10*6/uL 0.022-0.10 1 Social History: Smoking Status (Most current) and Tobacco Use (All prior to encounter date) This section includes the most current, and the historical, smoking and tobacco- related health factors from the [facility] where the Encounter took place. Current Smoking Status This section includes the most current smoking, or tobacco-related health factor, from the [place] facility where the Encounter took place. Date/Time Current Smoking Status Comment Jessica sidhu Jul 17, 2024 03:18 AM ORYX ADMIT TOBACCO SCREEN NO [facility] Tobacco Use History This section includes a history of the smoking, or tobacco-related health factors, that were collected on or before the date of the Encounter. The data comes from the [place] facility where the Encounter took place. Date/Time Smoking Status/Tobacco Use Comment Evelyn acjamie Nov 09, 2023 06:45 AM ORYX ADMIT TOBACCO SCREEN NO [facility] May 25, 2022 11:42 AM ORYX ADMIT TOBACCO SCREEN NO [facility] May 13, 2022 08:14 PM ORYX ADMIT TOBACCO SCREEN NO [facility] Apr 07, 2022 03:34 AM ORYX ADMIT TOBACCO SCREEN REFUSED [facility] Dec 20, 2021 12:44 PM ORYX ADMIT TOBACCO SCREEN NO [facility] Aug 23, 2021 08:22 PM ORYX ADMIT TOBACCO SCREEN NO [facility] Aug 12, 2021 06:24 PM ORYX ADMIT TOBACCO SCREEN NO [facility] May 12, 2008 06:16 PM LIFETIME NON-USER OF TOBACCO [facility] Jun 28, 2007 01:18 PM LIFETIME NON-USER OF TOBACCO [facility] May 03, 2006 10:56 AM LIFETIME NON-TOBACCO USER [facility] Dec 03, 2003 08:16 AM LIFETIME NON-TOBACCO USER [facility] Encounter Notes: All associated encounter notes This section contains the clinical notes associated to the Encounter. Date/Time Encounter Note(s) Provider Source Aug 28, 2024 10:53 AM NON[facility] NOTE: LOCAL TITLE: [facility] COORD PLAN STANDARD TITLE: NONVA NOTE DATE OF NOTE: AUG 28, 2024@10:53 ENTRY DATE: AUG 30, 2024@10:53:19 AUTHOR: JAMES APARICIO COSIGNER: URGENCY: STATUS: COMPLETED Emergency Notification Intake Date Presenting to the Facility: Aug Method of Contact: Notified from ECR worklist Notification ID: [id number] [facility] Referral #: [id number] [facility] Hospital Name: Hospital: [facility] Address: [address] [place]: [place]: [place] Zip Code: [address] [facility] Facility Point of Contact: Name: NICOLAS SCOTT Chief complaint: Chest Pain Primary Diagnosis: Disposition Discharged Date of discharge: Aug Discharge to home Records req'd by fax. 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
--- OUTSIDE RECORDS SUMMARY | 2025-03-22 22:01 | XMS_ITS | Encounter Summary ---
Author Name [facility] Organization [facility] Address [address] [place] [address] Care Team Providers Care Shirt Hemmer Name Role Phone VERNA BARRERA Primary Care [...] AID (WNR) Oct 23, 2016 MEDICAI D [id number] [phone] GERDA NUNES PATIENT Selected Encounter This section includes the information on record at [place] for the Encounter. Date/Time Encounter Type Encounter Description Reason Provider Source Nov 07, 2024 08:41 AM Outpatient Encounter EMERGENCY DEPT SY WEAVER Encounter Template Text not used by [place] Plan of Treatment: Future Appointments (+ 6 months) and Future Tests (+/- 45 days) The Plan of Treatment section includes future care activities for the patient from all [place] treatmentfacilities. This section includes future appointments and [...] 12, 2024 10:30 AM AMBULATORY - MEDICINE [facility] Nov 14, 2024 09:30 AM AMBULATORY - MEDICINE [facility] Nov 26, 2024 12:30 PM AMBULATORY - SURGERY [facility] Dec 17, 2024 06:28 PM AMBULATORY - MEDICINE [facility] Jan 02, 2025 01:00 PM AMBULATORY - PSYCHIATRY [facility] Jan 07, 2025 11:30 AM AMBULATORY - MEDICINE [facility] Apr 18, 2025 02:30 PM AMBULATORY - PSYCHIATRY [facility] Active, Pending, and Scheduled Orders This section includes a listing of several types of active, pending, and scheduled orders, including clinic medications orders, diagnostic test orders, procedure orders and consult orders; where the start date of the order is 45 days before the date of the Encounter or 45 days after the date of theEncounter. The data comes from all [facility]. Test Date/Time Test Type Test Details Facility Name Sep 24, 2024 03:02 PM Laboratory - Chemi stry Order TSH W/ REFLEX FT4 (STL) GREEN LI-HEP PLASMA [facility] Nov 07, 2024 09:39 AM Laboratory - Microbiology Order BLOOD CULT (SET 1) B D BLD. BOTTLE BLOOD [facility] Nov 07, 2024 09:39 AM Laboratory - Microbiology Order BLOOD CULT (SET 2) B D BLD. BOTTLE (SET 2) BLOOD [facility] Lab Results: +/- 30 days of the encounter This section includes the Chemistry and Hematology Lab Results on record with [place] for the patient. Radiology Reports and Pathology Reports are provided separately, in subsequent sections. Lab Results This section contains the Chemistry/Hematology Results that were resulted 30 days before or 30 daysafter the date of the Encounter. Date/Time Source Result Type Result - Unit Interpretation Reference Range Specimen Type Comment Nov 08, 2024 05:42 AM [facility] RENAL PANEL PLASMA Specimen Type: PLASMA Comment: No hemolysis noted. Ordering Provider: SIMI WALTERS Report Released Date/Time: Nov 07, 2024 11:32 PM Reporting Lab: [address] [address] Performing Lab: [address] [address] CREATININE 0.79 mg/dL 0.6-1.1 UREA NITROGEN 21.2 mg/dL 9.0-25.0 GLUCOSE 87 mg/dL 72-99 SODIUM 142 meq/L 136-145 POTASSIUM 3.9 meq/L 3.5-5 CHLORIDE 106 meq/L 98-107 CARBON DIOXIDE 27 meq/L 22-31 CALCIUM 9.4 mg/dL 8.4-10.4 PHOSPHOROUS 4.9 mg/dL H 2.3-4.7 ALBUMIN 3.6 g/dL 3.4-5 EGFR (CKD-EPI 2020) 92.2 >60 Nov 08, 2024 05:42 AM [facility] MAGNESIUM PLASMA Specimen Type: PLASM A Comment: No hemolysis noted. Ordering Provider: SIMI WALTERS Report Released Date/Time: Nov 07, 2024 11:32 PM Reporting Lab: [address] [address] Performing Lab: [address] [address] MAGNESIUM 2.0 mg/dL 1.6-2.6 Nov 08, 2024 05:42 AM [facility] CBC BLOOD Specimen Type: BLOOD No comment entered. Ordering Provider: SIMI WALTERS Report Released Date/Time: Nov 07, 2024 11:32 PM Reporting Lab: [address] [address] Performing Lab: [address] [address] WBC 6.3 10*3/uL 3.6-11.2 RBC 4.40 10*6/uL [...] 0.00-0. 20 Nov 08, 2024 05:00 AM [facility] MRSA SURVL NARES DNA NARES Specimen Type: [...] Nov 07, 2024 11:32 PM Reporting Lab: [place] [id number] [facility] [address] Performing Lab: [place] [address] [facility] [address] MRSA SURVL NARES DNA Negative Negative Nov 07, 2024 12:35 PM [facility] URINE DRUG SCREEN (STL) URINE Specimen Type: URINE Comment: The cut-off value for Fentanyl was laboratory developed and its performance characteristics confirmed by the [facility] laboratory thru method comparison with reference laboratory and medication chart review. The laboratory is regulated under CLIA as qualified to perform high-complexity testing. Fentanyl is used for clinical purposes in conjunction with other laboratory tests. Ordering Provider: SUKHDEEP HENRY Report Released Date/Time: Nov 07, 2024 09:39 AM Reporting Lab: [address] [address] Performing Lab: [address] [address] ETHANOL <10 mg/dL 0-9 AMPHET/METHAMPHETAMINE Negative ng/mL COCAINE METABOLITES Negative ng/mL BENZODIAZEPINES (STL) POSITIVE ng/mL CANNABINOIDS Negative ng/mL METHADONE Negative ng/mL OPIATES Negative ng/mL CREATININE URINE/OTHERS 107.3 mg/dL 47-1 10 OXYCODONE (VKWLO-FHB-AC) Negative ng/mL BUPRENORPHINE (STL-PB-MA) Negative ng/mL FENTANYL (STL) Negative ng/mL Nov 07, 2024 12:35 PM [facility] URINALYSIS (STL-PB) URINE Specimen Type: URIN E No comment entered. Ordering Provider: SUKHDEEP HENRY Report Released Date/Time: Nov 07, 2024 09:40 AM Reporting Lab: [address] [address] Performing Lab: [address] [address] URINE COLOR Yellow Yellow U.BILIRUBIN Negative mg/dL [...] GRAVITY 1.023 Nov 07, 2024 11:22 AM [facility] SEROTONIN SERUM Specimen Type: SERUM Comment: This test was developed and its analytical performance characteristics have been determined by [facility]. It has not been cleared or approved by FDA. This assay has been validated pursuant to the CLIA regulations and is used for clinical purposes. Test performed by [facility] [place] [id number] [employer] Designer: Lois Valenzuela MD,PHD,JESSICA Test Reported by [facility][1], [address] [place] [address] Remi Dos Santos M.D., Ph.D., Director of Laboratories , CLIA [id number] This test was developed and its analytical performance characteristics have been determined by [facility]. It has not been cleared or approved by FDA. This assay has been validated pursuant to the CLIA regulations and is used for clinical purposes. Test performed by [facility] [place] [id number] [employer] U[employer] Designer: Lois Valenzuela MD,PHD,JESSICA Test Reported by [facility][1], [address] [place] [address] Remi Dos Santos M.D., Ph.D., Director of Laboratories , CLIA [id number] Ordering Provider: SUKHDEEP HENRY Report Released Date/Time: Nov 07, 2024 10:04 AM Reporting Lab: [facility] [address] [place] [phone] Performing Lab: [facility] [address] [facility] SEROTONIN 16 ng/mL L 56-244 Nov 07, 2024 11:22 AM [facility] TSH (MA-PB) SERUM Specimen Type: SERUM No comment entered. Ordering Provider: SUKHDEEP HENRY Report Released Date/Time: Nov 07, 2024 09:56 AM Reporting Lab: [facility] [address] [place] [phone] Performing Lab: [address] [address] TSH 3.321 u[IU]/mL 0.47-5 Nov 07, 2024 09:57 AM [facility] COMPREHENSIVE METABOLIC PANEL PLASMA Specimen Type: PLASMA Comment: No hemolysis noted. Ordering Provider: MANNY GORDON Report Released Date/Time: Nov 07, 2024 09:15 AM Reporting Lab: [address] [address] Performing Lab: [address] [address] CREATININE 0.84 mg/dL 0.6-1.1 UREA NITROGEN 20.2 [...] 85.7 >60 Nov 07, 2024 09:57 AM [facility] CBC BLOOD Specimen Type: BLOOD No comment entered. Ordering Provider: MANNY GORDON Report Released Date/Time: Nov 07, 2024 09:14 AM Reporting Lab: [address] [address] Performing Lab: [address] [address] WBC 10.4 10*3/uL 3.6-11.2 RBC 4.99 10*6/uL [...] 0.00-0. 20 Nov 07, 2024 09:49 AM [facility] LIPASE PLASMA Specimen Type: PLASM A No comment entered. Ordering Provider: SUKHDEEP HENRY Report Released Date/Time: Nov 07, 2024 09:39 AM Reporting Lab: [address] [address] Performing Lab: [address] [address] LIPASE 35 U/L 8-78 Nov 07, 2024 09:49 AM [facility] ETHANOL SERUM/PLASMA (STL) PLASMA Specimen Typ e: PLASMA No comment entered. Ordering Provider: SUKHDEEP HENRY Report Released Date/Time: Nov 07, 2024 09:39 AM Reporting Lab: [address] [address] Performing Lab: [address] [address] ETHANOL SERUM/PLASMA (STL) <10 mg/dL 0-9 Nov 07, 2024 09:49 AM [facility] RESPIRATORY PCR PANEL NASOPHARYNX Specimen Type: NASOPHARYNX [...] the clinician evaluating the patient. Chasity CHOI, (817) Ordering Provider: SUKHDEEP HENRY Report Released Date/Time: Nov 07, 2024 09:39 AM Reporting Lab: [facility] [address] [facility] [address] Performing Lab: [address] [address] *Adenovirus (BF) Not Detected Not Detect ed [...] Dete cted Nov 07, 2024 09:49 AM [facility] CPK PLASMA Specimen Type: PLASM A No comment entered. Ordering Provider: SUKHDEEP HENRY Report Released Date/Time: Nov 07, 2024 09:48 AM Reporting Lab: [facility] [address] [facility] [address] Performing Lab: [address] [address] CPK 61 U/L 29-168 Oct 22, 2024 12:03 PM [facility] FERRITIN SERUM Specimen Type: SERUM No comment entered. Ordering Provider: EZ TAPIA Report Released Date/Time: Oct 22, 2024 11:52 AM Reporting Lab: [facility] [address] [facility] [address] Performing Lab: [facility] [address] [place] [phone] FERRITIN 173.22 ng/mL 10-204 Oct 22, 2024 12:03 PM [facility] B12 SERUM Specimen Type: SERUM No comment entered. Ordering Provider: EZ TAPIA Report Released Date/Time: Oct 22, 2024 11:54 AM Reporting Lab: [address] [address] Performing Lab: [address] [address] B12 440 pg/mL 213-816 Oct 22, 2024 12:03 PM [facility] IRON/TIBC PROFILE SERUM Specimen Type: SERUM No comment entered. Ordering Provider: EZ TAPIA Report Released Date/Time: Oct 22, 2024 11:52 AM Reporting Lab: [address] [address] Performing Lab: [address] [address] TIBC 324 ug/dL 250-450 TRANSFERRIN 259 mg/dL 173-360 IRON SATURATION 45 20-50 IRON 146 ug/dL 50-170 Oct 22, 2024 12:03 PM [facility] CBC BLOOD Specimen Type: BLOOD No comment entered. Ordering Provider: EZ TAPIA Report Released Date/Time: Oct 22, 2024 11:52 AM Reporting Lab: [address] [address] Performing Lab: [address] [address] WBC 6.5 10*3/uL 3.6-11.2 RBC 4.69 10*6/uL [...] 2024 08:42 PM 50 115/62 16 97 [facility] N Nov 07, 2024 01:00 PM 88 133/84 17 97 4 [facility] Nov 07, 2024 08:55 AM 98.6 118 140/83 20 0 [facility] Social History: Smoking Status (Most current) and Tobacco Use (All prior to encounter date) This section includes the most current, and the historical, smoking and tobacco- related health factors from the [place] facility where the Encounter took place. Current Smoking Status This section includes the most current smoking, or tobacco-related health factor, from the [place] facility where the Encounter took place. Date/Time Current Smoking Status Comment Jessica sidhu Nov 07, 2024 05:48 PM ORYX ADMIT TOBACCO SCREEN NO [facility] Tobacco Use History This section includes a history of the smoking, or tobacco-related health factors, that were collected on or before the date of the Encounter. The data comes from the [place] facility where the Encounter took place. Date/Time Smoking Status/Tobacco Use Comment F acility Jul 17, 2024 03:18 AM ORYX ADMIT TOBACCO SCREEN NO [facility] Nov 09, 2023 06:45 AM ORYX ADMIT TOBACCO SCREEN NO [facility] May 25, 2022 11:42 AM ORYX ADMIT TOBACCO SCREEN NO [facility] May 13, 2022 08:14 PM ORYX ADMIT TOBACCO SCREEN NO [facility] Apr 07, 2022 03:34 AM ORYX ADMIT TOBACCO SCREEN REFUSED [facility] Dec 20, 2021 12:44 PM ORYX ADMIT TOBACCO SCREEN NO [facility] Aug 23, 2021 08:22 PM ORYX ADMIT TOBACCO SCREEN NO [facility] Aug 12, 2021 06:24 PM ORYX ADMIT TOBACCO SCREEN NO [facility] May 12, 2008 06:16 PM LIFETIME NON-USER OF TOBACCO [facility] Jun 28, 2007 01:18 PM LIFETIME NON-USER OF TOBACCO [facility] May 03, 2006 10:56 AM LIFETIME NON-TOBACCO USER [facility] Dec 03, 2003 08:16 AM LIFETIME NON-TOBACCO USER [facility] Radiology Reports: +/- 30 days of the [...] the Encounter. The data comes from all [facility] facilities. Date/Time Radiology Report Provider Source Nov 26, 2024 01:13 PM HIP, UNILAT, 2-3 V IEWS LEFT W OR W/O PELVIS: GERDA NUNES [facility] [id number] -1975 F Exm Date: NOV 26, 2024@13:13 Req Phys: GALDINO FONTANA Pat Loc: BIN-ORTHO 1 (Req'g Loc) Img Loc: BIN-MAIN RADIOLOGY SUITE Service: Unknown Screen: Patient answered no [facility] [address] [place] [address] (Case [id number] COMPLETE) HIP, UNILAT, 2-3 VIEWS LEFT W OR (RAD Detailed) CPT:50400 Proc Modifiers : LEFT, AP Pelvis, Frog Reason for Study: Left hip pain Clinical History: Report Status: Verified Date Reported: NOV 28, 2024 Date Verified: NOV 28, 2024 Locker Room Supervisor E-Sig:/ES/ROSALINA CHANG Report: EXAMINATION: HIP, UNILAT, 2-3 [...] osteoarthritis. Primary Interpreting Staff: ROSALINA CHANG, RADIOLOGIST (Locker Room Supervisor) /ROSALINA [facility] Nov 07, 2024 04:[address] HEAD W/O CONT: MANJUGERDA SERRA DEC [id number] -1975 F Exm Date: NOV 07, 2024@16:16 Req Phys: SUKHDEEP HENRY Loc: -EMERGENCY DEPT 2ND SHIFT (R Img Loc: -CT IMAGING BIN Service: Unknown Screen: Patient answered no [facility] [address] [place] [address] (Case [id number] COMPLETE) CT HEAD W/O CONT (CT Detailed) CPT:70505 Reason for Study: headache Clinical History: Responsible [...] 07, 2024 Date Verified: NOV 07, 2024 Locker Room Supervisor E-Sig:/ES/Geneva Egan MD Report: CT HEAD W/O CONT CASE #: [id number] DATE:11/07/2024 4:46 PM CLINICAL HISTORY:headache COMPARISON: 12/31/2023, [...] Primary Interpreting Staff: Geneva Egan MD, Radiologist (Locker Room Supervisor) /GENEVA [facility] Nov 07, 2024 09:44 AM CHEST PORTABLE: GERDA NUNES [facility] [id number] -1975 F Exm Date: NOV 07, 2024@09:44 Req Phys: SUKHDEEP HENRY Loc: -EMERGENCY DEPT 2ND SHIFT (R Img Loc: -MAIN RADIOLOGY SUITE Service: Unknown Screen: Patient answered no [facility] [address] [place] [address] (Case [id number] COMPLETE) CHEST PORTABLE (RAD Detailed) CPT:98358 Proc Modifiers : Portable Reason for Study: , cough Clinical History: Cough and fever Report Status: Verified Date Reported: NOV 07, 2024 Date Verified: NOV 07, 2024 Locker Room Supervisor E-Sig:/TAMERA/SYED MCGINNIS MD Report: Case #[id number]. Chest examination. COMPARISON: 02/26/2024. Finding: Portable AP view of the chest examination shows normal cardiac and aortic shadow. Trachea is in the midline. Lungs are well aerated. No evidence of pulmonary vascular congestion, consolidation or mass. No evidence of pleural effusion or pneumothorax. Impression: No active cardiopulmonary disease. Primary Interpreting Staff: SYED MCGINNIS MD, Staff Physician - Radiologist (Locker Room Supervisor) /SYED HOWARD [facility] Pathology Reports: +/- 30 days of [...] the Encounter. The data comes from all [facility] facilities. Date/Time Pathology Report Provider Source Nov 07, 2024 12:35 PM LR MICROBIOLOGY RE PORT: Accession [UID]: [id number] [[id number]] Received: Nov 07, 2024@15:52 Collection sample: URINE,CLEAN CATCH Collection date: Nov 07, 2024 12:35 Site/Specimen: URINE Provider: SUKHDEEP HENRY Test(s) ordered: C&S URINE..................... completed: Nov 08, 2024 22:06 * BACTERIOLOGY FINAL REPORT => Nov 08, 2024 22:08 TECH CODE: [id number] Bacteriology Remark(s): CULTURE SHOWS <10,000 CFU/ML NATURE OF GROWTH SUGGESTS CONTAMINATION OR DELAY IN TRANSPORT. There will be no work up. AJK 11/08/24 =--=--=--=--=--=--=--=--=--= --=--=--=--=--=--=--=--=--=- -=--=--=--=--=--=--=-- Performing Laboratory: Bacteriology Report Performed By: [facility] [address] [place] [address] CLIA# [id number] [address] [place] [id number] [place] [address] LENIN DILLARD [facility] Encounter Notes: All associated encounter notes This section contains the clinical notes associated to the Encounter. 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 pt states she gabapentin and tramadol medications were increased and now she is having headache, dizziness, weakness, jerking, sweating and nausea. pt can not sit still in triage. Level of Consciousness (AVPU): Alert = Appears aware of and responsive to the environment on their own. Follows commands, opens eyes spontaneously, and tracks objects. Vital Signs: Temperature 98.6 F (37 C) Pulse 118 Respirations 20 Blood Pressure 140/83 Pulse Oximetry 98 Room Air Pain: No pain Pain Score: 0 Suicide Screen: Saunders Suicide Severity Rating Scale (C-SSRS) screener 1. [...] history of ischemic heart disease (SNOMED CT 598795748) 2) Migraine (SNOMED CT 77658820) 3) Vitamin D deficiency 4) Hypothyroidism 5) Low back pain 6) Depression 7) Mastodynia 8) Lumbar radiculopathy 9) Irritable bowel syndrome characterized by alternating bowel habit 10) Fibromyalgia 11) Chronic pain in female pelvis 12) Kidney stone 13) Insomnia 14) Compartment syndrome 15) Obesity (SCT 094732400) 16) Arthritis 17) Intermittent palpitations 18) Chronic obstructive lung disease 19) Obstructive sleep apnea of adult 20) Poor pelvic muscle tone 21) Cervicalgia 22) Bacterial cellulitis 23) Overactive bladder 24) Iron deficiency /es/ SY DENTON RN REGISTERED NURSE Signed: 11/07/2024 08:56 11/07/2024 ADDENDUM STATUS: COMPLETED 0920: placed in room 104-2 for assessment. Pal and labs done per dat instructor. /tamera/ DEEP BLANCHARD RN Signed: 11/07/2024 09:20 11/07/2024 ADDENDUM STATUS: COMPLETED 0954: all meds given as ordered per [facility] /angelika BLANCHARD RN Signed: 11/07/2024 09:55 11/07/2024 ADDENDUM STATUS: COMPLETED 1010: given valium as ordered per [facility] /tamera/ DEEP BLANCHARD RN Signed: 11/07/2024 10:11 11/07/2024 ADDENDUM STATUS: COMPLETED 1150: more valium given iv push as ordered per bcma. /tamera/ DEEP BLANCHARD RN Signed: 11/07/2024 11:52 11/07/2024 ADDENDUM STATUS: COMPLETED 1300: given more medication per [facility]. patient states she is feeling mucb better /tamera/ DEEP BLANCHARD RN Signed: 11/07/2024 12:59 11/07/2024 ADDENDUM STATUS: COMPLETED 1435: more meds given per bcma /angelika BLANCHARD RN Signed: 11/07/2024 14:36 11/07/2024 ADDENDUM STATUS: COMPLETED 1907: report to pranav Pardo /tamera/ DEEP BLANCHARD RN Signed: 11/07/2024 19:08 11/07/2024 ADDENDUM STATUS: COMPLETED 1906 Patient report received from MARIBEL Ledezma. Patient resting quietly in bed. Resp e/u, NAD. Call light in reach. 2019 Patient resting quietly in bed with eyes closed. Resp e/u, NAD. 2129 Patient resting quietly in bed with eyes closed. Resp e/u, NAD. 8 Attempted to call ZAIN real in with a patient, no nurse assigned. 2250 Attempted to call report, ZAIN Philippe will be taking patient and will call back in 5-10 mins. 2318 Patient report given to MARIBEL Philippe. Patient to 5C via WC. /tamera/ PRANAV GOMEZ RN REGISTERED NURSE Signed: 11/07/2024 23:19 [facility]
--- OUTSIDE RECORDS SUMMARY | 2025-03-22 22:01 | XMS_ITS | Encounter Summary ---
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 Date/Time Encounter Type Encounter Description Reason Provider Source Jul 08, 2024 08:44 PM EMERGENCY DEPT VISIT MOD [facility] EMERGENCY DEPT ICD-10-CM M54.16 Radiculopathy , lumbar region KELLE CUMMINGS Cecile Encounter Template Text not used by [place] Assessments - Encounter Diagnoses This section includes the primary and secondary diagnoses documented for the Encounter. Date/Time Primary/Secondary Diagnosis Diagnosis Name Provider Source Jul 08, 2024 10:57 PM PRIMARY Radiculopathy, lumbar region KELLE CUMMINGS [facility] Jul 08, 2024 10:57 PM SECONDARY Nausea CUMMINGS,KELLE J [facility] Jul 08, 2024 10:57 PM SECONDARY Primary insomnia KELLE CUMMINGS [facility] Plan of Treatment: Future Appointments (+ 6 months) and Future Tests (+/- 45 days) The Plan of Treatment section includes future care activities for the patient from all [place] [facility]. This section includes future appointments and future orders which are active, pending or scheduled. Future Appointments This section includes appointments that were scheduled to occur 6 months from the date of the Encounter, up to a maximum of 20 appointments. The data comes from all [facility]. Appointment Date/Time Appointment Type Appointme nt Facility Name Jul 09, 2024 08:30 AM AMBULATORY - MEDICINE [facility] Jul 16, 2024 11:43 AM AMBULATORY - MEDICINE [facility] Jul 22, 2024 10:00 AM AMBULATORY - MEDICINE [facility] Oct 22, 2024 11:30 AM AMBULATORY - MEDICINE [facility] Nov 07, 2024 08:41 AM AMBULATORY - MEDICINE [facility] Nov 12, 2024 10:30 AM AMBULATORY - MEDICINE [facility] Nov 14, 2024 09:30 AM AMBULATORY - MEDICINE [facility] Nov 26, 2024 12:30 PM AMBULATORY - SURGERY [facility] Dec 17, 2024 06:28 PM AMBULATORY - MEDICINE [facility] Jan 02, 2025 01:00 PM AMBULATORY - PSYCHIATRY [facility] Active, Pending, and Scheduled Orders This section includes a listing of several types of active, pending, and scheduled orders, including clinic medications orders, diagnostic test orders, procedure orders and consult orders; where the start date of the order is 45 days before the date of the Encounter or 45 days after the date of theEncounter. The data comes from all [facility]. Test Date/Time Test Type Test Details Facility Name Jul 11, 2024 04:51 PM Laboratory - Chemi stry Order TSH W/ REFLEX FT4 (STL) GREEN LI-HEP PLASMA WC [facility] Jul 12, 2024 12:00 AM Laboratory - Chemi stry Order HAPTOGLOBIN (STL) GOLD/RED SST SERUM SP [facility] Jul 12, 2024 12:00 AM Laboratory - Chemi stry Order LDH GREEN LI/HEP BLD/PLAS PLASMA SP [facility] Jul 12, 2024 12:00 AM Laboratory - Chemi stry Order FERRITIN GOLD/RED SST SERUM SP [facility] Jul 12, 2024 12:00 AM Laboratory - Chemi stry Order IRON/TIBC PROFILE GOLD/RED SST SERUM SP [facility] Jul 12, 2024 12:00 AM Laboratory - Chemi stry Order RETIC RATIO BLOOD SP ONCE [facility] Jul 12, 2024 12:00 AM Laboratory - Chemi stry Order B12 GOLD/RED SST SERUM SP [facility] Jul 12, 2024 12:00 AM Laboratory - Chemi stry Order FOLATE (STL-MA) GOLD/RED SST SERUM SP [facility] Jul 16, 2024 11:36 PM Laboratory - Chemi stry Order MRSA SURVL NARES DNA NARES [facility] Lab Results: +/- 30 days [...] Type Comment Jul 20, 2024 11:28 AM [facility] GLUCOSE,BLOOD-poct (STL) BLOOD Specimen Type: BLOOD Comment: Test Performed by: [id number] Meter #: [id number] Ordering Provider: KRYSTIAN KUMARI Report Released Date/Time: Jul 20, 2024 11:50 AM Reporting Lab: [facility] [address] [place] [phone] Performing Lab: [address] [address] GLUCOSE,BLOOD-poct (STL) 78 mg/dL 72-99 Jul 20, 2024 08:02 AM [facility] MAGNESIUM PLASMA Specimen Type: PLASM A Comment: No hemolysis noted. Ordering Provider: MICHAEL FELIZ Report Released Date/Time: Jul 17, 2024 03:01 PM Reporting Lab: [facility] [address] [facility] [address] Performing Lab: [facility] [address] [place] [phone] MAGNESIUM 2.1 mg/dL 1.6-2.6 Jul 20, 2024 08:02 AM [facility] RENAL PANEL PLASMA Specimen Type: PLASM A Comment: No hemolysis noted. Ordering Provider: MICHAEL FELIZ Report Released Date/Time: Jul 17, 2024 03:01 PM Reporting Lab: [facility] [address] [place] [phone] Performing Lab: [address] [address] CREATININE 0.81 mg/dL 0.6-1.1 UREA NITROGEN 16.7 mg/dL 9.0-25.0 GLUCOSE 99 mg/dL 72-99 SODIUM 142 meq/L 136-145 POTASSIUM 4.2 meq/L 3.5-5 CHLORIDE 108 meq/L H 98-107 CARBON DIOXIDE 25 meq/L 22-31 CALCIUM 9.6 mg/dL 8.4-10.4 PHOSPHOROUS 3.9 mg/dL 2.3-4.7 ALBUMIN 3.7 g/dL 3.4-5 EGFR (CKD-EPI 2020) 89.5 >60 Jul 19, 2024 04:23 PM [facility] GLUCOSE,BLOOD-poct (STL) BLOOD Specimen Type: BLOOD Comment: Test Performed by: [id number] Meter #: [id number] Ordering Provider: KRYSTIAN KUMARI Report Released Date/Time: Jul 19, 2024 04:54 PM Reporting Lab: [facility] [address] [place] [phone] Performing Lab: [address] [address] GLUCOSE,BLOOD-poct (STL) 74 mg/dL 72-99 Jul 19, 2024 11:32 AM [facility] GLUCOSE,BLOOD-poct (STL) BLOOD Specimen Type: BLOOD Comment: Test Performed by: [id number] Meter #: [id number] Ordering Provider: KRYSTIAN KUMARI Report Released Date/Time: Jul 19, 2024 11:55 AM Reporting Lab: [address] [address] Performing Lab: [address] [address] GLUCOSE,BLOOD-poct (STL) 78 mg/dL 72-99 Jul 19, 2024 06:59 AM [facility] MAGNESIUM PLASMA Specimen Type: PLASM A Comment: No hemolysis noted. Ordering Provider: MICHAEL FELIZ Report Released Date/Time: Jul 17, 2024 03:01 PM Reporting Lab: [address] [address] Performing Lab: [address] [address] MAGNESIUM 2.1 mg/dL 1.6-2.6 Jul 19, 2024 06:59 AM [facility] RENAL PANEL PLASMA Specimen Type: PLASM A Comment: No hemolysis noted. Ordering Provider: MICHAEL FELIZ Report Released Date/Time: Jul 17, 2024 03:01 PM Reporting Lab: [address] [address] Performing Lab: [address] [address] CREATININE 0.88 mg/dL 0.6-1.1 UREA NITROGEN 19.2 mg/dL 9.0-25.0 GLUCOSE 52 mg/dL L 72-99 SODIUM 143 meq/L 136-145 POTASSIUM 3.5 meq/L 3.5-5 CHLORIDE 108 meq/L H 98-107 CARBON DIOXIDE 26 meq/L 22-31 CALCIUM 10.0 mg/dL 8.4-10.4 PHOSPHOROUS 3.8 mg/dL 2.3-4.7 ALBUMIN 4.1 g/dL 3.4-5 EGFR (CKD-EPI 2020) 81.0 >60 Jul 19, 2024 06:59 AM [facility] CBC BLOOD Specimen Type: BLOOD No comment entered. Ordering Provider: MICHAEL FELIZ Report Released Date/Time: Jul 17, 2024 03:01 PM Reporting Lab: [facility] [address] [facility] [address] Performing Lab: [facility] [address] [place] [phone] WBC 4.6 10*3/uL 3.6-11.2 RBC 4.82 10*6/uL [...] 0.05 10*3/uL 0.00-0. 20 2024 06:35 AM [facility] MAGNESIUM PLASMA Specimen Type: PLASM A Comment: No hemolysis noted. Ordering Provider: MICHAEL FELIZ Report Released Date/Time: Jul 17, 2024 03:01 PM Reporting Lab: [facility] [address] [facility] [address] Performing Lab: [facility] [address] [place] [address] MAGNESIUM 2.2 mg/dL 1.6-2.6 2024 06:35 AM [facility] B12 SERUM Specimen Type: SERUM No comment entered. Ordering Provider: MICHAEL FELIZ Report Released Date/Time: Jul 17, 2024 03:01 PM Reporting Lab: [facility] [address] [place] [phone] Performing Lab: [facility] [address] [place] [phone] B12 194 pg/mL L 213-816 2024 06:35 AM [facility] FERRITIN SERUM Specimen Type: SERUM No comment entered. Ordering Provider: MICHAEL FELIZ Report Released Date/Time: Jul 17, 2024 03:01 PM Reporting Lab: [address] [address] Performing Lab: [address] [address] FERRITIN 11.54 ng/mL 10-204 2024 06:35 AM [facility] IRON/TIBC PROFILE SERUM Specimen Type: SERUM No comment entered. Ordering Provider: MICHAEL FELIZ Report Released Date/Time: Jul 17, 2024 03:01 PM Reporting Lab: [address] [address] Performing Lab: [address] [address] TIBC 420 ug/dL 250-450 TRANSFERRIN 336 mg/dL 173-360 IRON SATURATION 11 L 20-50 IRON 45 ug/dL L 50-170 2024 06:35 AM [facility] FOLATE (L-WI) SERUM Specimen Type: SERUM No comment entered. Ordering Provider: MICHAEL FELIZ Report Released Date/Time: Jul 17, 2024 03:01 PM Reporting Lab: [address] [address] Performing Lab: [address] [address] FOLATE (STL-MA) 8.8 ng/mL 7-20 2024 06:35 AM [facility] VITAMIN D, 25-HYDROXY SERUM Specimen Type: SE RUM No comment entered. Ordering Provider: MICHAEL FELIZ Report Released Date/Time: Jul 17, 2024 03:49 PM Reporting Lab: [facility] [address] [facility] [address] Performing Lab: [address] [address] VITAMIN D, 25-HYDROXY 39.3 ng/mL 30-96 2024 06:35 AM [facility] CBC BLOOD Specimen Type: BLOOD No comment entered. Ordering Provider: MICHAEL FELIZ Report Released Date/Time: Jul 17, 2024 03:01 PM Reporting Lab: [facility] [address] [facility] [address] Performing Lab: [address] [address] WBC 5.6 10*3/uL 3.6-11.2 RBC 4.41 10*6/uL [...] 0.05 10*3/uL 0.00-0. 20 2024 06:35 AM [facility] RENAL PANEL PLASMA Specimen Type: PLASM A Comment: No hemolysis noted. Ordering Provider: MICHAEL FELIZ Report Released Date/Time: Jul 17, 2024 03:01 PM Reporting Lab: [facility] [address] [facility] [address] Performing Lab: [address] [address] CREATININE 0.85 mg/dL 0.6-1.1 UREA NITROGEN 20.0 mg/dL 9.0-25.0 GLUCOSE 91 mg/dL 72-99 SODIUM 142 meq/L 136-145 POTASSIUM 4.2 meq/L 3.5-5 CHLORIDE 108 meq/L H 98-107 CARBON DIOXIDE 26 meq/L 22-31 CALCIUM 9.6 mg/dL 8.4-10.4 PHOSPHOROUS 4.9 mg/dL H 2.3-4.7 ALBUMIN 3.9 g/dL 3.4-5 EGFR (CKD-EPI 2020) 84.5 >60 Jul 17, 2024 08:37 PM [facility] VITAMIN B1 PLASMA Specimen Type: PLASM A Comment: Vitamin supplementation within 24 hours prior to blood draw may affect the accuracy of the results. This test was developed and its analytical performance characteristics have been determined by [employer] [place]. It has not been cleared or approved by the U.S. Food and Drug Administration. This assay has been validated pursuant to the CLIA regulations and is used for clinical purposes. Test Performed by [facility], [employer] [facility], [id number] [place] [address] Remi Dos Santos M.D., Ph.D., Director of Laboratories , CLIA [id number] Ordering Provider: MICHAEL FELIZ Report Released Date/Time: Jul 17, 2024 04:40 PM Reporting Lab: [facility] [address] [place] [phone] Performing Lab: [facility] [address] [facility] VITAMIN B1 13 nmol/L 8-30 Jul 17, 2024 06:48 AM [facility] TSH (MA-PB) SERUM Specimen Type: SERUM No comment entered. Ordering Provider: REMINGTON COTA Report Released Date/Time: Jul 17, 2024 03:52 AM Reporting Lab: [address] [address] Performing Lab: [address] [address] TSH 3.837 u[IU]/mL 0.47-5 Jul 17, 2024 06:48 AM [facility] BASIC METABOLIC PANEL PLASMA Specimen Type: PL ASMA Comment: No hemolysis noted. Ordering Provider: REMINGTON COTA Report Released Date/Time: Jul 16, 2024 11:36 PM Reporting Lab: [address] [address] Performing Lab: [address] [address] CREATININE 0.89 mg/dL 0.6-1.1 UREA NITROGEN 14.1 mg/dL 9.0-25.0 GLUCOSE 86 mg/dL 72-99 SODIUM 144 meq/L 136-145 POTASSIUM 3.5 meq/L 3.5-5 CHLORIDE 109 meq/L H 98-107 CARBON DIOXIDE 24 meq/L 22-31 CALCIUM 9.7 mg/dL 8.4-10.4 EGFR (CKD-EPI 2020) 80.4 >60 Jul 17, 2024 06:48 AM [facility] CBC BLOOD Specimen Type: BLOOD No comment entered. Ordering Provider: REMINGTON COTA Report Released Date/Time: Jul 16, 2024 11:36 PM Reporting Lab: [address] [address] Performing Lab: [address] [address] WBC 6.0 10*3/uL 3.6-11.2 RBC 4.55 10*6/uL [...] 0.00-0. 20 Jul 16, 2024 11:44 PM [facility] MRSA SURVL NARES DNA NARES Specimen Type: [...] Jul 16, 2024 11:36 PM Reporting Lab: [address] [address] Performing Lab: [address] [address] MRSA SURVL NARES DNA Negative Negative Jul 16, 2024 04:15 PM [facility] TEST URINE (MA-STL) URINE Specimen Type: URINE No comment entered. Ordering Provider: ROBERTA RIVAS Report Released Date/Time: Jul 16, 2024 01:23 PM Reporting Lab: [address] [address] Performing Lab: [address] [place] [address] Qualitative Test NEG NEGAT MISAEL Jul 16, 2024 04:15 PM [facility] URINALYSIS W/ CX REFLEX (STL-PB) URINE Specim en Type: URINE No comment entered. Ordering Provider: ROBERTA RIVAS Report Released Date/Time: Jul 16, 2024 01:23 PM Reporting Lab: [address] [address] Performing Lab: [place] [phone] URINE COLOR Yellow Yellow U.BILIRUBIN Negative mg/dL [...] 1.026 1.005-1.029 Jul 16, 2024 02:30 PM [facility] CPK PLASMA Specimen Type: PLASM A Comment: No hemolysis noted. Ordering Provider: ROBERTA RIVAS Report Released Date/Time: Jul 16, 2024 01:23 PM Reporting Lab: [address] [address] Performing Lab: [place] [phone] CPK 92 U/L 29-168 Jul 16, 2024 02:30 PM [facility] MAGNESIUM PLASMA Specimen Type: PLASM A Comment: No hemolysis noted. Ordering Provider: ROBERTA RIVAS Report Released Date/Time: Jul 16, 2024 01:23 PM Reporting Lab: [facility] [address] [facility] [address] Performing Lab: [facility] [address] [facility] [address] MAGNESIUM 2.0 mg/dL 1.6-2.6 Jul 16, 2024 02:30 PM [facility] PHOSPHOROUS PLASMA Specimen Type: PLASM A Comment: No hemolysis noted. Ordering Provider: ROBERTA RIVAS Report Released Date/Time: Jul 16, 2024 01:23 PM Reporting Lab: [facility] [address] [place] [address] Performing Lab: [address] [address] PHOSPHOROUS 3.4 mg/dL 2.3-4.7 Jul 16, 2024 02:30 PM [facility] COMPREHENSIVE METABOLIC PANEL PLASMA Specimen Type: PLASMA Comment: No hemolysis noted. Ordering Provider: ROBERTA RIVAS Report Released Date/Time: Jul 16, 2024 01:23 PM Reporting Lab: [facility] [address] [facility] [address] Performing Lab: [address] [address] CREATININE 0.86 mg/dL 0.6-1.1 UREA NITROGEN 15.1 [...] 83.8 >60 Jul 16, 2024 02:30 PM [facility] CBC BLOOD Specimen Type: BLOOD No comment entered. Ordering Provider: ROBERTA RIVAS Report Released Date/Time: Jul 16, 2024 01:23 PM Reporting Lab: [facility] [address] [facility] [address] Performing Lab: [facility] [address] [facility] [address] WBC 6.3 10*3/uL 3.6-11.2 RBC 4.76 10*6/uL [...] 08:56 PM 99.1 97 151/91 16 8 [facility] Social History: Smoking Status (Most current) and Tobacco Use (All prior to encounter date) This section includes the most current, and the historical, smoking and tobacco- related health factors from the [place] facility where the Encounter took place. Current Smoking Status This section includes the most current smoking, or tobacco-related health factor, from the [place] facility where the Encounter took place. Date/Time Current Smoking Status Comment Facil thea Nov 09, 2023 06:45 AM ORYX ADMIT TOBACCO SCREEN NO [facility] Tobacco Use History This section includes a history of the smoking, or tobacco-related health factors, that were collected on or before the date of the Encounter. The data comes from the [place] facility where the Encounter took place. Date/Time Smoking Status/Tobacco Use Comment F acility May 25, 2022 11:42 AM ORYX ADMIT TOBACCO SCREEN NO [facility] May 13, 2022 08:14 PM ORYX ADMIT TOBACCO SCREEN NO [facility] Apr 07, 2022 03:34 AM ORYX ADMIT TOBACCO SCREEN REFUSED [facility] Dec 20, 2021 12:44 PM ORYX ADMIT TOBACCO SCREEN NO [facility] Aug 23, 2021 08:22 PM ORYX ADMIT TOBACCO SCREEN NO [facility] Aug 12, 2021 06:24 PM ORYX ADMIT TOBACCO SCREEN NO [facility] May 12, 2008 06:16 PM LIFETIME NON-USER OF TOBACCO [facility] Jun 28, 2007 01:18 PM LIFETIME NON-USER OF TOBACCO [facility] May 03, 2006 10:56 AM LIFETIME NON-TOBACCO USER [facility] Dec 03, 2003 08:16 AM LIFETIME NON-TOBACCO USER [facility] Radiology Reports: +/- 30 days of the [...] the Encounter. The data comes from all [facility] facilities. Date/Time Radiology Report Provider Source Jul 16, 2024 02:59 PM TIBIA & FIBULA,LEF T, 2 VIEWS: GERDA NUNES [facility] [id number] -1975 F Exm Date: JUL 16, 2024@14:59 Req Phys: ROBERTA RIVAS Pat Loc: BIN-EMERGENCY DEPT 2ND SHIFT (R Img Loc: BIN-MAIN RADIOLOGY SUITE Service: Unknown Screen: Patient answered no [facility] [address] [place] [address] (Case [id number] COMPLETE) TIBIA & FIBULA,LEFT, 2 VIEWS (RAD Detailed) CPT:90587 Proc Modifiers : LEFT Reason for Study: left calf pain, rule out foregin body Clinical History: Report Status: Verified Date Reported: JUL 16, 2024 Date Verified: JUL 16, 2024 Water Quality Tester E-Sig:/ES/INDIO SHARMA Report: EXAMINATION: TIBIA & FIBULA,LEFT, [...] Primary Interpreting Staff: INDIO SHARMA, Diagnostic Radiologist (Water Quality Tester) /INDIO BRANDT [facility] Jul 16, 2024 02:47 PM US EXTREMITY VEINS UNILAT OR LTD: MANJUGERDACLAUDIA LOPEZ [id number] -1975 F Exm Date: JUL 16, 2024@14:47 Req Phys: ROBERTA RIVAS Loc: BIN-EMERGENCY DEPT 2ND SHIFT (R Img Loc: -ULTRASOUND Service: Unknown Screen: Patient answered no [facility] [address] [place] [address] (Case [id number] COMPLETE) US EXTREMITY VEINS UNILAT OR LTD (US Detailed) CPT:84177 Reason for Study: left leg pain Clinical History: Report Status: Verified Date Reported: JUL 16, 2024 Date Verified: JUL 16, 2024 Water Quality Tester E-Sig:/ES/INDIO SHARMA Report: Case [id number] US EXTREMITY VEINS UNILAT OR LTD Comparison: Left lower extremity ultrasound 11/09/2023. Findings: The left lower extremity deep veins are compressible throughout their course. No thrombi are visualized. Venous flow velocities demonstrate normal variation with respiration and augmentation. Impression: No evidence of deep venous thrombosis of the left lower extremity deep veins. Dictated by Kanika Lucero M.D. (vice president biostatistics). I, Indio Sharma, have reviewed the images and report and concur with these findings. Primary Interpreting Staff: INDIO SHARMA, Diagnostic Radiologist (Water Quality Tester) Primary Interpreting Resident: KANIKA LUCERO, Diagnostic Talk Show Host /INDIO ABARCA [facility] Jun 27, 2024 06:00 AM MRI SPINE THORACIC W/O CONT: GERDA NUNES [facility] [id number] -1975 F Exm Date: JUN 27, 2024@06:00 Req Phys: VERNA BARRERA Pat Loc: [facility] PACT 6 PCP (Req'g Lo Img Loc: OUTSIDE BIN-MRI Service: Unknown Screen: Patient answered no (Case [id number] COMPLETE) MRI SPINE THORACIC W/O CONT (MRI Detailed) CPT:27159 Reason for Study: OUTSIDE STUDY Clinical History: Report Status: Electronically Filed Date Reported: JUL 08, 2024 Report: This study was performed outside the [place] in another facility and images were uploaded into [employer]. The report has been scanned into [employer]. In order to upload images a case number was needed, therefore this is an administrative report. Impression: This study was performed outside the [place] in another facility and images were uploaded into [employer]. The report has been scanned into [employer]. In order to upload images a case number was needed, therefore this is an administrative report VERIFIED BY: / *ELECTRONICALLY FILED* [facility] Encounter Notes: All associated encounter notes This section contains the clinical notes associated to the Encounter. Date/Time Encounter Note(s) Provider Source Jul 08, 2024 09:50 PM ACCOUNTING OF DISC LOSURES NOTE: LOCAL TITLE: STATE PRESCRIPTION DRUG MONITORING PROGRAM STANDARD TITLE: ACCOUNTING OF DISCLOSURES NOTE DATE OF NOTE: JUL 08, 2024@21:50:47 ENTRY DATE: JUL 08, 2024@21:50:47 AUTHOR: KELLE CUMMINGS EXP COSIGNER: URGENCY: STATUS: COMPLETED This PDMP query was submitted by Kelle Cummings MD. The clinical justification for this PDMP query is to review controlled substances prescribed outside of the [place], and any additional information that may become available, as an important component of standard clinical care, and in accordance with [facility] policy. [facility] [place]. No prescription(s) for controlled substances outside the [place] were found in the last 90 days. /tamera/ KELLE CUMMINGS MD STAFF PHYSICIAN Signed: 07/08/2024 21:50 KELLE CUMMINGS [facility] Jul 08, 2024 09:45 PM PHYSICIAN EMERGENC Y DEPT NOTE: LOCAL TITLE: EMERGENCY DEPARTMENT ST STANDARD TITLE: PHYSICIAN EMERGENCY DEPT NOTE DATE OF NOTE: JUL 08, 2024@21:45 ENTRY DATE: JUL 08, 2024@21:45:08 AUTHOR: KELLE CUMMINGS EXP COSIGNER: URGENCY: STATUS: COMPLETED TRIAGE CHIEF COMPLAINT: left leg pain, fevers, nausea, hearing in right ear went away for a minute, feeling tired, can't sleep HPI: Patient is a 48 yo female with hx/o hypothyroid, gastric bypass, depression, insomnia, LBP and chronic left leg pain which she says is her disability. Located in her left low back and radiating into her anterior thigh and lateral calf, feels burning, 10/10. It is always there, but it has been much worse x 5 days. No trauma. No new exercise. She takes tylenol and tizanadine for it but these haven't been helping much. No numbness or weakness, no incontinence of urine or stool. She has been messaging her PCP for this since 07/01 and today he prescribed a medrol dose pack and #20 norco to be mailed. He scheduled a video visit for tomorrow. Pt also c/o feeling fatigued for over a month, but unable to sleep. Takes trazadone and antidepressants, reports compliance. Pt also reports poor appetite x 5 days. Says she is only eating sips and bites at a time. The only solids she ate today were a few bites of fish. No abd pain, no vomiting. 1-2 soft stools/day, not black or bloody. Urinating fine-- no frequency/burning/blood. Pt reports Fever 100.1 earlier today. Reports right sided DON. No nasal congestion, sore throat, ear pain. No cough or dyspnea. No rash. Pt asks me if her low ferritin could be the cause of her symptoms, says she has a hematology appt coming up to discuss abnormal labs. Labs last month show a TSH of 15, normal T4. Pt reports comliance with her levothyroxine 175mcg daily Pt was here in the ED 06/07 c/o nausea, fatigue, diarrhea, no vomiting. VSS, cbc/cmpl unremarkable, TSH elevated at 15 REVIEW OF SYSTEMS: See HPI for further details. All 10 systems reviewed and otherwise negative unless otherwise detailed herein. PAST MEDICAL HISTORY: 1) Family history of ischemic heart disease (SNOMED CT [id number]) 2) Migraine (SNOMED CT [id number]) 3) Vitamin D deficiency 4) Hypothyroidism 5) Low back pain 6) Depression 7) Mastodynia 8) Lumbar radiculopathy 9) Irritable bowel syndrome characterized by alternating bowel habit 10) Fibromyalgia 11) Chronic pain in female pelvis 12) Kidney stone 13) Insomnia 14) Compartment syndrome 15) Obesity (SCT [id number]) 16) Arthritis 17) Intermittent palpitations 18) Chronic [...] MOUTH AT ACTIVE BEDTIME NEEDED FOR INSOMNIA No medications found.. I have reviewed the patient's medication list with the patient and/or his/her care-senior telecommunications specialist. Any medication discrepancies have been resolved. Patient will be provided with an updated list of his/her medication(s). SURGICAL HISTORY: not pertinent FAMILY HISTORY: not pertinent SOCIAL HISTORY: Social History Main Topics: Smoking status:denies Alcohol Use: not endorsed Illicit Drug Use: not indorsed Sexual Activity: Child bearing age: N/A LMP: N/A ALLERGIES: Review of patient's allergies indicates: VITAMIN B12 1000MCG, PANTOPRAZOLE, AMOXICILLIN, FLONASE NASAL SOLUTION PREGABALIN, GABAPENTIN, METHOCARBAMOL PHYSICAL EXAM: VITAL SIGNS: 151/91 (07/08/2024 20:56)97 (07/08/2024 20:56)98% (04/18/2024 08:58)99.1 F [37.3 C] (07/08/2024 20:56)16 (07/08/2024 20:56) Measurement DT PAIN 07/08/2024 20:56 8 CONSTITUTIONAL: No acute distress, Non-toxic appearance, a&ox4 HENT: airway patent, OP mildly erythemetous without tonsillar enlargement or exudate, MMM, TMs clear EYES: Conj pink, sclera clear NECK: Normal range of motion, No tenderness, Supple, No stridor, No LAD. CARDIOVASCULAR: Normal heart rate, Normal rhythm, No murmurs,2+dps x 4 PULMONARY/CHEST: CTA bilaterally ABDOMEN: Bowel sounds normal, Soft, flat, No tenderness BACK: no midline ttp over c/t/l spine. +ttp over left SI joint. no erythema or rash to back EXTREMITIES: Normal range of motion, Intact distal pulses, No edema. calves symmetric, no homans or bands NEUROLOGIC: Alert & oriented/reactive,5/5 nocturnist physician, 5/5 ankle dorsi/plantarflexion, soft touch sensation intact/symmetric LEs. When pt walked from WR to examination room she walked with a limp. As she left, walking down the hallway to the elevator to the pharmacy, she walked with a normal gait SKIN: Warm, Dry, No erythema, No rash ED COURSE & MEDICAL DECISION MAKING: Nursing notes, medications, vital signs, allergies and pertinent labs & imaging studies reviewed (see chart for details) with lab results reviewed with patient and family/caregivers at bedside and radiology results reviewed with patient and any family/caregivers at bedside. Stable, alert, nontoxic, nonfocal with clinically apparent acute flare up of left leg pain likely d/t lumbar radiculopathy, x 7 days. Only taking tylenol and tizanadinie. PCP rx'd medrol and norco to be mailed--I called pharmacy and norco has been mailed already but they can change the medrol to pickup tonight, will fill bridge rx of norco if I write it. Pt also with fatigue, nausea, poor appetite x 5days, here one month ago for same. VSS, MMM, urinating normally, no signs of significant dehydration. Will rx zofran prn Pt reports fever this morning, no focal infectious symptoms. No signs of infection on physical exam. Advised pt to monitor for fever, new symptoms, seek medical attention should any infecitous symptoms develop Pt was unhappy with plan for medrol and norco, requested IVF and IV pain medications. I explained that IV pain medications were not the next step in treating flare ups of chronic pain, that I had arranged for her to be able to pickle solution maker her medrol and norco tonight. She also was unhappy that I was not ordering IVF and was unsatisfied with my explanation as to why they are not medically indicated at this time. She had a man on speakerphone during this discussion, and they both proceeded to say that [facility], and that that is [facility]. Pt took her dc instructions and walked out, down the long hallway, with no limp. I recommended pt RTED if she has worsening or gets no improvement with the prescribed medical regimen. She is aware of her telehealth appt tomorrow with her PCP. Patient's care impacted by : hypothyroid, copd, depression, insomnia, chronic lbp with radiculopathy Patient's care is significantly limited by social determinants of health including: other social determinants of health External records reviewed: office records / outpatient records / prior outpatient labs / prior outpatient radiology / primary care record DIFFERENTIAL DIAGNOSES CONSIDERED: lumbar radiculopathy, viral syndrome, hypothyroidism DECISION to ADMIT / DISCHARGE TIME: 1999 DISPOSITION CONDITION:[x ] Improved [ ] Unchanged [ ] Deteriorated CLINICAL IMPRESSION: 1 -low back pain with radiculopathy 2 -nausea 3 - insomnia 4 - history of fever DISCHARGE INSTRUCTIONS AND PATIENT-DIRECTED FOLLOW-UP RECOMMENDATIONS: DIET: regular ACTIVITY: ad daniel NEW MEDS:medrol, norco, zofran MEDICATION RECONCILIATION: CONTINUE ALL PRESCRIBED MEDICATIONS DIRECTED EXCEPT: FOLLOW-UP WITH PRIMARY ASSISTANT PRINTER FLOOR COVERING/SPECIALIST: routine in 1-2 weeks if not improving, sooner if worse RETURN TO EMERGENCY: if any worries or concerns ADDITIONAL SIGNATURE PCP: [ ] YES [ ] NO [ ] [...] MOUTH AT ACTIVE BEDTIME NEEDED FOR INSOMNIA /es/ KELLE CUMMINGS MD STAFF PHYSICIAN Signed: 07/08/2024 22:26 Receipt Acknowledged By: 07/09/2024 08:33 /es/ KELLE SHIPLEY MD [facility]
--- OUTSIDE RECORDS SUMMARY | 2025-03-22 22:01 | XMS_ITS | Encounter Summary ---
Author Name [facility] [place] [facility] [place] [facility] [place] [facility] [place] Address [address] [place] [address] Care Team Providers Care Water/Wastewater Engineer Name Role Phone VERNA BARRERA Primary [...] AID (WNR) Oct 23, 2016 MEDICAI D [id number] [phone] GERDA NUNES PATIENT Selected Encounter This section includes the information on record at [place] for the Encounter. Date/Time Encounter Type Encounter Description Reason Pro vider Source Jun 25, 2024 09:18 AM Outpatient Encounter GENERAL INTERNAL MEDICINE IHE Encounter Template Text not used by [place] Plan of Treatment: Future Appointments (+ 6 months) and Future Tests (+/- 45 days) The Plan of Treatment section includes future care activities for the patient from all [place] treatmentfacilities. This section includes future appointments and future orders which are active, pending or scheduled. Future Appointments This section includes appointments that were scheduled to occur 6 months from the date of the Encounter, up to a maximum of 20 appointments. The data comes from all [place] treatment facilities. Appointment Date/Time Appointment Type Appointme nt Facility Name Jun 27, 2024 07:15 PM AMBULATORY - NONE [facility] Jul 08, 2024 08:44 PM AMBULATORY - MEDICINE [facility] Jul 09, 2024 08:30 AM AMBULATORY - MEDICINE [facility] Jul 16, 2024 11:43 AM AMBULATORY - MEDICINE [facility] Jul 22, 2024 10:00 AM AMBULATORY - MEDICINE [facility] Oct 22, 2024 11:30 AM AMBULATORY - MEDICINE [facility] Nov 07, 2024 08:41 AM AMBULATORY - MEDICINE [facility] Nov 12, 2024 10:30 AM AMBULATORY - MEDICINE [facility] Nov 14, 2024 09:30 AM AMBULATORY - MEDICINE [facility] Nov 26, 2024 12:30 PM AMBULATORY - SURGERY [facility] Dec 17, 2024 06:28 PM AMBULATORY - MEDICINE [facility] Active, Pending, and Scheduled Orders This section includes a listing of several types of active, pending, and scheduled orders, including clinic medications orders, diagnostic test orders, procedure orders and consult orders; where the start date of the order is 45 days before the date of the Encounter or 45 days after the date of theEncounter. The data comes from all [facility]. Test Date/Time Test Type Test Details Facility Name Jul 11, 2024 04:51 PM Laboratory - Chemi stry Order TSH W/ REFLEX FT4 (STL) GREEN LI-HEP PLASMA WC [facility] Jul 12, 2024 12:00 AM Laboratory - Chemi stry Order HAPTOGLOBIN (STL) GOLD/RED SST SERUM SP [facility] Jul 12, 2024 12:00 AM Laboratory - Chemi stry Order LDH GREEN LI/HEP BLD/PLAS PLASMA SP [facility] Jul 12, 2024 12:00 AM Laboratory - Chemi stry Order FERRITIN GOLD/RED SST SERUM SP [facility] Jul 12, 2024 12:00 AM Laboratory - Chemi stry Order IRON/TIBC PROFILE GOLD/RED SST SERUM SP [facility] Jul 12, 2024 12:00 AM Laboratory - Chemi stry Order B12 GOLD/RED SST SERUM SP . [facility] Jul 12, 2024 12:00 AM Laboratory - Chemi stry Order RETIC RATIO BLOOD SP ONCE . [facility] Jul 12, 2024 12:00 AM Laboratory - Chemi stry Order FOLATE (STL-MA) GOLD/RED SST SERUM SP . [facility] Jul 16, 2024 11:36 PM Laboratory - Chemi stry Order MRSA SURVL NARES DNA NARES WC [facility] Lab Results: [...] Type Comment Jul 20, 2024 11:28 AM [facility] GLUCOSE,BLOOD-poct (STL) BLOOD Specimen Type: BLOOD Comment: Test Performed by: [id number] Meter #: [id number] Ordering Provider: KRYSTIAN KUMARI Report Released Date/Time: Jul 20, 2024 11:50 AM Reporting Lab: [facility] [address] [facility] [address] Performing Lab: [facility] [address] [place] [phone] GLUCOSE,BLOOD-poct (STL) 78 mg/dL 72-99 Jul 20, 2024 08:02 AM [facility] MAGNESIUM PLASMA Specimen Type: PLASM A Comment: No hemolysis noted. Ordering Provider: MICHAEL FELIZ Report Released Date/Time: Jul 17, 2024 03:01 PM Reporting Lab: [facility] [address] [facility] [address] Performing Lab: [facility] [address] [facility] [address] MAGNESIUM 2.1 mg/dL 1.6-2.6 Jul 20, 2024 08:02 AM [facility] RENAL PANEL PLASMA Specimen Type: PLASM A Comment: No hemolysis noted. Ordering Provider: MICHAEL FELIZ Report Released Date/Time: Jul 17, 2024 03:01 PM Reporting Lab: [address] [address] Performing Lab: [address] [address] CREATININE 0.81 mg/dL 0.6-1.1 UREA NITROGEN 16.7 mg/dL 9.0-25.0 GLUCOSE 99 mg/dL 72-99 SODIUM 142 meq/L 136-145 POTASSIUM 4.2 meq/L 3.5-5 CHLORIDE 108 meq/L H 98-107 CARBON DIOXIDE 25 meq/L 22-31 CALCIUM 9.6 mg/dL 8.4-10.4 PHOSPHOROUS 3.9 mg/dL 2.3-4.7 ALBUMIN 3.7 g/dL 3.4-5 EGFR (CKD-EPI 2020) 89.5 >60 Jul 19, 2024 04:23 PM [facility] GLUCOSE,BLOOD-poct (STL) BLOOD Specimen Type: BLOOD Comment: Test Performed by: [id number] Meter #: [id number] Ordering Provider: KRYSTIAN KUMARI Report Released Date/Time: Jul 19, 2024 04:54 PM Reporting Lab: [address] [address] Performing Lab: [address] [address] GLUCOSE,BLOOD-poct (STL) 74 mg/dL 72-99 Jul 19, 2024 11:32 AM [facility] GLUCOSE,BLOOD-poct (STL) BLOOD Specimen Type: BLOOD Comment: Test Performed by: [id number] Meter #: [id number] Ordering Provider: KRYSTIAN KUMARI Report Released Date/Time: Jul 19, 2024 11:55 AM Reporting Lab: [address] [address] Performing Lab: [address] [address] GLUCOSE,BLOOD-poct (STL) 78 mg/dL 72-99 Jul 19, 2024 06:59 AM [facility] MAGNESIUM PLASMA Specimen Type: PLASM A Comment: No hemolysis noted. Ordering Provider: MICHAEL FELIZ Report Released Date/Time: Jul 17, 2024 03:01 PM Reporting Lab: [address] [address] Performing Lab: [address] [address] MAGNESIUM 2.1 mg/dL 1.6-2.6 Jul 19, 2024 06:59 AM [facility] RENAL PANEL PLASMA Specimen Type: PLASM A Comment: No hemolysis noted. Ordering Provider: MICHAEL FELIZ Report Released Date/Time: Jul 17, 2024 03:01 PM Reporting Lab: [address] [address] Performing Lab: [address] [address] CREATININE 0.88 mg/dL 0.6-1.1 UREA NITROGEN 19.2 mg/dL 9.0-25.0 GLUCOSE 52 mg/dL L 72-99 SODIUM 143 meq/L 136-145 POTASSIUM 3.5 meq/L 3.5-5 CHLORIDE 108 meq/L H 98-107 CARBON DIOXIDE 26 meq/L 22-31 CALCIUM 10.0 mg/dL 8.4-10.4 PHOSPHOROUS 3.8 mg/dL 2.3-4.7 ALBUMIN 4.1 g/dL 3.4-5 EGFR (CKD-EPI 2020) 81.0 >60 Jul 19, 2024 06:59 AM [facility] CBC BLOOD Specimen Type: BLOOD No comment entered. Ordering Provider: MICHAEL FELIZ Report Released Date/Time: Jul 17, 2024 03:01 PM Reporting Lab: [address] [address] Performing Lab: [address] [address] WBC 4.6 10*3/uL 3.6-11.2 RBC 4.82 10*6/uL [...] 0.05 10*3/uL 0.00-0. 20 2024 06:35 AM [facility] MAGNESIUM PLASMA Specimen Type: PLASM A Comment: No hemolysis noted. Ordering Provider: MICHAEL FELIZ Report Released Date/Time: Jul 17, 2024 03:01 PM Reporting Lab: [facility] [address] [facility] [address] Performing Lab: [facility] [address] [place] [phone] MAGNESIUM 2.2 mg/dL 1.6-2.6 2024 06:35 AM [facility] FERRITIN SERUM Specimen Type: SERUM No comment entered. Ordering Provider: MICHAEL FELIZ Report Released Date/Time: Jul 17, 2024 03:01 PM Reporting Lab: [facility] [address] [facility] [address] Performing Lab: [facility] [address] [place] [phone] FERRITIN 11.54 ng/mL 2024 06:35 AM [facility] B12 SERUM Specimen Type: SERUM No comment entered. Ordering Provider: MICHAEL FELIZ Report Released Date/Time: Jul 17, 2024 03:01 PM Reporting Lab: [facility] [address] [facility] [address] Performing Lab: [facility] [address] [facility] [address] B12 194 pg/mL L 213-816 2024 06:35 AM [facility] IRON/TIBC PROFILE SERUM Specimen Type: SERUM No comment entered. Ordering Provider: MICHAEL FELIZ Report Released Date/Time: Jul 17, 2024 03:01 PM Reporting Lab: [facility] [address] [place] [phone] Performing Lab: [facility] [address] [place] [address] TIBC 420 ug/dL 250-450 TRANSFERRIN 336 mg/dL 173-360 IRON SATURATION 11 L 20-50 IRON 45 ug/dL L 50-170 2024 06:35 AM [facility] FOLATE (L-AK) SERUM Specimen Type: SERUM No comment entered. Ordering Provider: MICHAEL FELIZ Report Released Date/Time: Jul 17, 2024 03:01 PM Reporting Lab: [facility] [address] [facility] [address] Performing Lab: [facility] [address] [place] [phone] FOLATE (L-MA) 8.8 ng/mL 7-20 2024 06:35 AM [facility] VITAMIN D, 25-HYDROXY SERUM Specimen Type: SE RUM No comment entered. Ordering Provider: MICHAEL FELIZ Report Released Date/Time: Jul 17, 2024 03:49 PM Reporting Lab: [facility] [address] [facility] [address] Performing Lab: [facility] [address] [place] [phone] VITAMIN D, 25-HYDROXY 39.3 ng/mL 30-96 2024 06:35 AM [facility] CBC BLOOD Specimen Type: BLOOD No comment entered. Ordering Provider: MICHAEL FELIZ Report Released Date/Time: Jul 17, 2024 03:01 PM Reporting Lab: [facility] [address] [facility] [address] Performing Lab: [address] [address] WBC 5.6 10*3/uL 3.6-11.2 RBC 4.41 10*6/uL [...] 0.05 10*3/uL 0.00-0. 20 2024 06:35 AM [facility] RENAL PANEL PLASMA Specimen Type: PLASM A Comment: No hemolysis noted. Ordering Provider: MICHAEL FELIZ Report Released Date/Time: Jul 17, 2024 03:01 PM Reporting Lab: [address] [address] Performing Lab: [address] [address] CREATININE 0.85 mg/dL 0.6-1.1 UREA NITROGEN 20.0 mg/dL 9.0-25.0 GLUCOSE 91 mg/dL 72-99 SODIUM 142 meq/L 136-145 POTASSIUM 4.2 meq/L 3.5-5 CHLORIDE 108 meq/L H 98-107 CARBON DIOXIDE 26 meq/L 22-31 CALCIUM 9.6 mg/dL 8.4-10.4 PHOSPHOROUS 4.9 mg/dL H 2.3-4.7 ALBUMIN 3.9 g/dL 3.4-5 EGFR (CKD-EPI 2020) 84.5 >60 Jul 17, 2024 08:37 PM [facility] VITAMIN B1 PLASMA Specimen Type: PLASM A Comment: Vitamin supplementation within 24 hours prior to blood draw may affect the accuracy of the results. This test was developed and its analytical performance characteristics have been determined by [facility] [place], [place]. It has not been cleared or approved by the U.S. Food and Drug Administration. This assay has been validated pursuant to the CLIA regulations and is used for clinical purposes. Test Performed by [facility], [facility], [address] [place] [address] Remi Dos Santos M.D., Ph.D., Director of Laboratories , CLIA [id number] Ordering Provider: MICHAEL FELIZ Report Released Date/Time: Jul 17, 2024 04:40 PM Reporting Lab: [address] [address] Performing Lab: [facility] [address] [facility] VITAMIN B1 13 nmol/L 8-30 Jul 17, 2024 06:48 AM [facility] TSH (MA-PB) SERUM Specimen Type: SERUM No comment entered. Ordering Provider: REMINGTON COTA Report Released Date/Time: Jul 17, 2024 03:52 AM Reporting Lab: [address] [address] Performing Lab: [address] [address] TSH 3.837 u[IU]/mL 0.47-5 Jul 17, 2024 06:48 AM [facility] BASIC METABOLIC PANEL PLASMA Specimen Type: PL ASMA Comment: No hemolysis noted. Ordering Provider: REMINGTON COTA Report Released Date/Time: Jul 16, 2024 11:36 PM Reporting Lab: [address] [address] Performing Lab: [address] [address] CREATININE 0.89 mg/dL 0.6-1.1 UREA NITROGEN 14.1 mg/dL 9.0-25.0 GLUCOSE 86 mg/dL 72-99 SODIUM 144 meq/L 136-145 POTASSIUM 3.5 meq/L 3.5-5 CHLORIDE 109 meq/L H 98-107 CARBON DIOXIDE 24 meq/L 22-31 CALCIUM 9.7 mg/dL 8.4-10.4 EGFR (CKD-EPI 2020) 80.4 >60 Jul 17, 2024 06:48 AM [facility] CBC BLOOD Specimen Type: BLOOD No comment entered. Ordering Provider: REMINGTON COTA Report Released Date/Time: Jul 16, 2024 11:36 PM Reporting Lab: [address] [address] Performing Lab: [address] [address] WBC 6.0 10*3/uL 3.6-11.2 RBC 4.55 10*6/uL [...] 0.00-0. 20 Jul 16, 2024 11:44 PM [facility] MRSA SURVL NARES DNA NARES Specimen Type: [...] Jul 16, 2024 11:36 PM Reporting Lab: [place] [address] Performing Lab: [address] [address] MRSA SURVL NARES DNA Negative Negative Jul 16, 2024 04:15 PM [facility] TEST URINE (MA-STL) URINE Specimen Type: URINE No comment entered. Ordering Provider: ROBERTA RIVAS Report Released Date/Time: Jul 16, 2024 01:23 PM Reporting Lab: [address] [address] Performing Lab: [address] [address] Qualitative Test NEG NEGAT MISAEL Jul 16, 2024 04:15 PM [facility] URINALYSIS W/ CX REFLEX (STL-PB) URINE Specim en Type: URINE No comment entered. Ordering Provider: ROBERTA RIVAS Report Released Date/Time: Jul 16, 2024 01:23 PM Reporting Lab: [address] [address] Performing Lab: [facility] [address] [facility] [address] URINE COLOR Yellow Yellow U.BILIRUBIN Negative mg/dL [...] 1.026 1.005-1.029 Jul 16, 2024 02:30 PM [facility] CPK PLASMA Specimen Type: PLASM A Comment: No hemolysis noted. Ordering Provider: ROBERTA RIVAS Report Released Date/Time: Jul 16, 2024 01:23 PM Reporting Lab: [facility] [address] [place] [address] Performing Lab: [place] [phone] CPK 92 U/L 29-168 Jul 16, 2024 02:30 PM [facility] MAGNESIUM PLASMA Specimen Type: PLASM A Comment: No hemolysis noted. Ordering Provider: ROBERTA RIVAS Report Released Date/Time: Jul 16, 2024 01:23 PM Reporting Lab: [facility] [address] [facility] [address] Performing Lab: [place] [phone] MAGNESIUM 2.0 mg/dL 1.6-2.6 Jul 16, 2024 02:30 PM [facility] PHOSPHOROUS PLASMA Specimen Type: PLASM A Comment: No hemolysis noted. Ordering Provider: ROBERTA RIVAS Report Released Date/Time: Jul 16, 2024 01:23 PM Reporting Lab: [facility] [address] [facility] [address] Performing Lab: [facility] [address] [place] [phone] PHOSPHOROUS 3.4 mg/dL 2.3-4.7 Jul 16, 2024 02:30 PM [facility] COMPREHENSIVE METABOLIC PANEL PLASMA Specimen Type: PLASMA Comment: No hemolysis noted. Ordering Provider: ROBERTA RIVAS Report Released Date/Time: Jul 16, 2024 01:23 PM Reporting Lab: [facility] [address] [facility] [address] Performing Lab: [address] [address] CREATININE 0.86 mg/dL 0.6-1.1 UREA NITROGEN 15.1 [...] 83.8 >60 Jul 16, 2024 02:30 PM [facility] CBC BLOOD Specimen Type: BLOOD No comment entered. Ordering Provider: ROBERTA RIVAS Report Released Date/Time: Jul 16, 2024 01:23 PM Reporting Lab: [facility] [address] [place] [address] Performing Lab: [address] [address] WBC 6.3 10*3/uL 3.6-11.2 RBC 4.76 10*6/uL [...] 0.60 BASOPHILS, ABSOLUTE 0.07 10*3/uL 0.00-0. 20 Jun 07, 2024 08:48 AM [facility] COVID-19 DIAGNOSTIC (FLU/RSV)(STL) NASOPHARYNX Spec imen Type: [...] Jun 07, 2024 08:20 AM Reporting Lab: [facility] [address] [facility] [address] Performing Lab: [place] [address] [facility] [address] INFLUENZA A Negative Negative INFLUENZA B Negative Negative COVID-19 (STL-PB) Not Detected Not Detec ilana RSV (Cepheid) NEGATIVE Negative Jun 07, 2024 08:38 AM [facility] TSH W/ REFLEX FT4 (STL) PLASMA Specimen Type: PLASMA No comment entered. Ordering Provider: VERNA BARRERA Report Released Date/Time: Jun 04, 2024 12:23 PM Reporting Lab: [place] [address] Performing Lab: [place] [address] TSH 15.172 u[IU]/mL H 0.47-5 FREE T4(REFLEX) 0.74 ng/mL 0.7-1.48 Jun 07, 2024 08:38 AM [facility] HGA1C BLOOD Specimen Type: BLOOD No comment entered. Ordering Provider: VERNA BARRERA Report Released Date/Time: Jun 04, 2024 12:23 PM Reporting Lab: [place] [address] Performing Lab: [place] [address] HGA1C 5.7 4.0-6.0 Jun 07, 2024 08:38 AM [facility] HEPATIC FUNTION PANEL (STL) PLASMA Specimen Ty pe: PLASMA No comment entered. Ordering Provider: VERNA BARRERA Report Released Date/Time: Jun 04, 2024 12:23 PM Reporting Lab: [place] [address] Performing Lab: [address] [address] PROTEIN 7.1 g/dL 6-8.6 ALBUMIN 4.1 g/dL 3.4-5 TOTAL BILIRUBIN 0.4 mg/dL 0.2-1.2 ALKALINE PHOSPHATASE 80 U/L 40-150 AST/SGOT 18 U/L 5-34 ALT/SGPT 11 U/L 8-40 CONJ. BILIRUBIN 0.2 mg/dL 0-0.5 Jun 07, 2024 08:37 AM [facility] BASIC METABOLIC PANEL PLASMA Specimen Type: PL ASMA Comment: No hemolysis noted. Ordering Provider: VERNA BARRERA Report Released Date/Time: May 29, 2024 09:43 AM Reporting Lab: [address] [place] [address] Performing Lab: [address] [address] CREATININE 0.85 mg/dL 0.6-1.1 UREA NITROGEN 17.3 mg/dL 9.0-25.0 GLUCOSE 99 mg/dL 72-99 SODIUM 139 meq/L 136-145 POTASSIUM 4.2 meq/L 3.5-5 CHLORIDE 106 meq/L 98-107 CARBON DIOXIDE 27 meq/L 22-31 CALCIUM 9.7 mg/dL 8.4-10.4 EGFR (CKD-EPI 2020) 85.0 >60 Jun 07, 2024 08:37 AM [facility] CBC BLOOD Specimen Type: BLOOD No comment entered. Ordering Provider: VERNA BARRERA Report Released Date/Time: May 29, 2024 09:43 AM Reporting Lab: [address] [address] Performing Lab: [address] [address] WBC 6.1 10*3/uL 3.6-11.2 RBC 4.49 10*6/uL [...] 0.60 BASOPHILS, ABSOLUTE 0.06 10*3/uL 0.00-0. 20 Social History: Smoking Status [...] 06:45 AM ORYX ADMIT TOBACCO SCREEN NO [facility] Tobacco Use History This section includes a history of the smoking, or tobacco-related health factors, that were collected on or before the date of the Encounter. The data comes from the [place] facility where the Encounter took place. Date/Time Smoking Status/Tobacco Use Comment Evelyn acility May 25, 2022 11:42 AM ORYX ADMIT TOBACCO SCREEN NO [facility] May 13, 2022 08:14 PM ORYX ADMIT TOBACCO SCREEN NO [facility] Apr 07, 2022 03:34 AM ORYX ADMIT TOBACCO SCREEN REFUSED [facility] Dec 20, 2021 12:44 PM ORYX ADMIT TOBACCO SCREEN NO [facility] Aug 23, 2021 08:22 PM ORYX ADMIT TOBACCO SCREEN NO [facility] Aug 12, 2021 06:24 PM ORYX ADMIT TOBACCO SCREEN NO [facility] May 12, 2008 06:16 PM LIFETIME NON-USER OF TOBACCO [facility] Jun 28, 2007 01:18 PM LIFETIME NON-USER OF TOBACCO [facility] May 03, 2006 10:56 AM LIFETIME NON-TOBACCO USER [facility] Dec 03, 2003 08:16 AM LIFETIME NON-TOBACCO USER [facility] Radiology Reports: +/- 30 days [...] the Encounter. The data comes from all [place] treatment facilities. Date/Time Radiology Report Provider Source Jul 16, 2024 02:59 PM TIBIA & FIBULA,LEF T, 2 VIEWS: GERDA NUNES [facility] [id number] -1975 F Exm Date: JUL 16, 2024@14:59 Req Phys: ROBERTA RIVAS Loc: BIN-EMERGENCY DEPT 2ND SHIFT (R Img Loc: [facility]-MAIN RADIOLOGY SUITE Service: Unknown Screen: Patient answered no [facility] [address] [place] [address] (Case [id number] COMPLETE) TIBIA & FIBULA,LEFT, 2 VIEWS (RAD Detailed) CPT:94252 Proc Modifiers : LEFT Reason for Study: left calf pain, rule out foregin body Clinical History: Report Status: Verified Date Reported: JUL 16, 2024 Date Verified: JUL 16, 2024 Propeller Mechanic E-Sig:/ES/INDIO SHARMA Report: EXAMINATION: TIBIA & FIBULA,LEFT, [...] Primary Interpreting Staff: INDIO SHARMA, Diagnostic Radiologist (Propeller Mechanic) /INDIO BRANDT [facility] Jul 16, 2024 02:47 PM US EXTREMITY VEINS UNILAT OR LTD: GERDA NUNES [facility] [id number] -1975 F Exm Date: JUL 16, 2024@14:47 Req Phys: ROBERTA RIVAS Loc: BIN-EMERGENCY DEPT 2ND SHIFT (R Img Loc: BIN-ULTRASOUND BIN Service: Unknown Screen: Patient answered no [facility] [address] [place] [address] (Case [id number] COMPLETE) US EXTREMITY VEINS UNILAT OR LTD (US Detailed) CPT:11527 Reason for Study: left leg pain Clinical History: Report Status: Verified Date Reported: JUL 16, 2024 Date Verified: JUL 16, 2024 Propeller Mechanic E-Sig:/ES/INDIO SHARMA Report: Case [id number] US EXTREMITY VEINS UNILAT OR LTD Comparison: Left lower extremity ultrasound 11/09/2023. Findings: The left lower extremity deep veins are compressible throughout their course. No thrombi are visualized. Venous flow velocities demonstrate normal variation with respiration and augmentation. Impression: No evidence of deep venous thrombosis of the left lower extremity deep veins. Dictated by Kanika Lucero M.D. (president practicing urologist). I, Indio Sharma, have reviewed the images and report and concur with these findings. Primary Interpreting Staff: INDIO SHARMA, Diagnostic Radiologist (Propeller Mechanic) Primary Interpreting Resident: KANIKA LUCERO, Diagnostic Exhibit Specialist /INDIO [facility] Jun 27, 2024 06:00 AM MRI SPINE THORACIC W/O CONT: GERDA NUNES [facility] [id number] -1975 F Exm Date: JUN 27, 2024@06:00 Req Phys: BARRERA,VERNA A Pat Loc: -[facility] PACT 6 PCP (Req'g Lo Img Loc: OUTSIDE BIN-MRI Service: Unknown Screen: Patient answered no (Case [id number] COMPLETE) MRI SPINE THORACIC W/O CONT (MRI Detailed) CPT:16478 Reason for Study: OUTSIDE STUDY Clinical History: Report Status: Electronically Filed Date Reported: JUL 08, 2024 Report: This study was performed outside the [place] in another facility and images were uploaded into [employer]. The report has been scanned into [employer]. In order to upload images a case number was needed, therefore this is an administrative report. Impression: This study was performed outside the [place] in another facility and images were uploaded into [employer]. The report has been scanned into [employer]. In order to upload images a case number was needed, therefore this is an administrative report VERIFIED BY: / *ELECTRONICALLY FILED* [facility] Encounter Notes: All associated encounter notes This section contains the clinical notes associated to the Encounter. Date/Time Encounter Note(s) Provider Source Jun 25, 2024 09:18 AM NONVA NOTE: LOCAL TITLE: COMMUNITY CARE-CARE COORDINATION PLAN NOTE [address] STANDARD TITLE: NONVA NOTE DATE OF NOTE: JUN 25, 2024@09:18 ENTRY DATE: JUN 25, 2024@09:18:21 AUTHOR: JAX JEAN EXP COSIGNER: URGENCY: STATUS: COMPLETED COMMUNITY CARE-CARE COORDINATION PLAN NOTE 657 ST[address] Has ADDENDA Per Francine at providers office [phone], MRI orders need to be signed electronically in order for to be see 06/27. Alerting RN of team and also ordering provider to this request. /tamera/ JAX JEAN [employer] TECH Signed: 06/25/2024 09:20 Receipt Acknowledged By: 07/01/2024 12:14 /tamera/ VERNA BARRERA MD 07/11/2024 08:52 /tamera/ DEDE MELTON Registered Nurse 06/25/2024 ADDENDUM STATUS: COMPLETED Fax number to fax this request is [phone] /angelika JEAN [employer] TECH Signed: 06/25/2024 09:20 JAX JEAN [facility]
--- OUTSIDE RECORDS SUMMARY | 2025-03-22 22:01 | XMS_ITS | Encounter Summary ---
Author Name [facility] [place] [facility] [place] [facility] [place] Address [address] [place] [address] Care Team Providers Care Bilingual Customer Service Name Role Phone VERNA BARRERA Primary Care [...] AID ([place]NR) Oct 23, 2016 MEDICAI D [id number] [phone] GERDA NUNES PATIENT Selected Encounter This section includes the information on record at [place] for the Encounter. Date/Time Encounter Type Encounter Description Reason Provider Source Dec 17, 2024 06:28 PM EMERGENCY DEPT VISIT LOW [facility] EMERGENCY DEPT ICD-10-CM M79.602 Pain in left arm VICTOR M HOUGH Cecile Encounter Template Text not used by [place] Assessments - Encounter Diagnoses This section includes the primary and secondary diagnoses documented for the Encounter. Date/Time Primary/Secondary Diagnosis Diagnosis Name Provider Source Dec 17, 2024 10:30 PM PRIMARY Pain in left arm VICTOR M HOUGH [facility] Dec 17, 2024 10:30 PM SECONDARY Anxiety disorder, unspecified VICTOR M HOUGH [facility] Plan of Treatment: Future Appointments (+ 6 months) and Future Tests (+/- 45 days) The Plan of Treatment section includes future care activities for the patient from all [place] [facility] This section includes future appointments and future orders which are active, pending or scheduled. Future Appointments This section includes appointments that were scheduled to occur 6 months from the date of the Encounter, up to a maximum of 20 appointments. The data comes from all [facility]. Appointment Date/Time Appointment Type Appointme nt Facility Name Jan 02, 2025 01:00 PM AMBULATORY - PSYCHIATRY [facility] Jan 07, 2025 11:30 AM AMBULATORY - MEDICINE [facility] Apr 18, 2025 02:30 PM AMBULATORY - PSYCHIATRY [facility] Active, Pending, and Scheduled Orders This section includes a listing of several types of active, pending, and scheduled orders, including clinic medications orders, diagnostic test orders, procedure orders and consult orders; where the start date of the order is 45 days before the date of the Encounter or 45 days after the date of theEncounter. The data comes from all [facility]. Test Date/Time Test Type Test Details Facility Name Nov 07, 2024 09:39 AM Laboratory - Microbiology Order BLOOD CULT (SET 1) B D BLD. BOTTLE BLOOD [facility] Nov 07, 2024 09:39 AM Laboratory - Microbiology Order BLOOD CULT (SET 2) B D BLD. BOTTLE (SET 2) BLOOD [facility] Lab Results: +/- 30 days of the encounter This section includes the Chemistry and Hematology Lab Results on record with [place] for the patient. Radiology Reports and Pathology Reports are provided separately, in subsequent sections. Lab Results This section contains the Chemistry/Hematology Results that were resulted 30 days before or 30 daysafter the date of the Encounter. Date/Time Source Result Type Result - Unit Interpretation Reference Range Specimen Type Comment Jan 07, 2025 10:20 AM [facility] FERRITIN SERUM Specimen Type: SERUM No comment entered. Ordering Provider: EZ TAPIA Report Released Date/Time: Oct 22, 2024 02:14 PM Reporting Lab: [facility] [address] [facility] [address] Performing Lab: [address] [address] FERRITIN 174.43 ng/mL 10-204 Jan 07, 2025 10:20 AM [facility] IRON/TIBC PROFILE SERUM Specimen Type: SERUM No comment entered. Ordering Provider: EZ TAPIA Report Released Date/Time: Oct 22, 2024 02:14 PM Reporting Lab: [address] [address] Performing Lab: [address] [address] TIBC 323 ug/dL 250-450 TRANSFERRIN 258 mg/dL 173-360 IRON SATURATION 38 20-50 IRON 122 ug/dL 50-170 Jan 07, 2025 10:20 AM [facility] CBC BLOOD Specimen Type: BLOOD No comment entered. Ordering Provider: EZ TAPIA Report Released Date/Time: Oct 22, 2024 02:14 PM Reporting Lab: [address] [address] Performing Lab: [address] [address] WBC 5.6 10*3/uL 3.6-11.2 RBC 4.59 10*6/uL [...] 0.00-0. 20 Dec 17, 2024 07:11 PM [facility] TROPONIN I PLASMA Specimen Type: PLASM A Comment: No hemolysis noted. Ordering Provider: VICTOR M HOUGH Report Released Date/Time: Dec 17, 2024 06:44 PM Reporting Lab: [address] [address] Performing Lab: [address] [address] TROPONIN I <0.010 ng/mL 0-0.033 Dec 17, 2024 07:11 PM [facility] COMPREHENSIVE METABOLIC PANEL PLASMA Specimen Type: PLASMA Comment: No hemolysis noted. Ordering Provider: VICTOR M HOUGH Report Released Date/Time: Dec 17, 2024 06:44 PM Reporting Lab: [place] [address] [facility] [address] Performing Lab: [address] [address] CREATININE 0.89 mg/dL 0.6-1.1 UREA NITROGEN 17.8 [...] 79.9 >60 Dec 17, 2024 07:11 PM [facility] CBC BLOOD Specimen Type: BLOOD No comment entered. Ordering Provider: VICTOR M HOUGH Report Released Date/Time: Dec 17, 2024 06:44 PM Reporting Lab: [facility] [address] [facility] [address] Performing Lab: [facility] [address] [facility] [address] WBC 7.5 10*3/uL 3.6-11.2 RBC 4.79 10*6/uL [...] 06:41 PM 97.9 106 142/110 16 6 [facility] Social History: Smoking Status (Most current) and Tobacco Use (All prior to encounter date) This section includes the most current, and the historical, smoking and tobacco- related health factors from the [place] facility where the Encounter took place. Current Smoking Status This section includes the most current smoking, or tobacco-related health factor, from the [place] facility where the Encounter took place. Date/Time Current Smoking Status Comment Facil ity Nov 07, 2024 05:48 PM [facility] ADMIT TOBACCO SCREEN NO [facility] Tobacco Use History This section includes a history of the smoking, or tobacco-related health factors, that were collected on or before the date of the Encounter. The data comes from the [place] facility where the Encounter took place. Date/Time Smoking Status/Tobacco Use Comment F acility Jul 17, 2024 03:18 AM ORYX ADMIT TOBACCO SCREEN NO [facility] Nov 09, 2023 06:45 AM ORYX ADMIT TOBACCO SCREEN NO [facility] May 25, 2022 11:42 AM ORYX ADMIT TOBACCO SCREEN NO [facility] May 13, 2022 08:14 PM ORYX ADMIT TOBACCO SCREEN NO [facility] Apr 07, 2022 03:34 AM ORYX ADMIT TOBACCO SCREEN REFUSED [facility] Dec 20, 2021 12:44 PM ORYX ADMIT TOBACCO SCREEN NO [facility] Aug 23, 2021 08:22 PM ORYX ADMIT TOBACCO SCREEN NO [facility] Aug 12, 2021 06:24 PM ORYX ADMIT TOBACCO SCREEN NO [facility] May 12, 2008 06:16 PM LIFETIME NON-USER OF TOBACCO [facility] Jun 28, 2007 01:18 PM LIFETIME NON-USER OF TOBACCO [facility] May 03, 2006 10:56 AM LIFETIME NON-TOBACCO USER [facility] Dec 03, 2003 08:16 AM LIFETIME NON-TOBACCO USER [facility] Radiology Reports: +/- 30 [...] Hospital facilities. Date/Time Radiology Report Provider Source Nov 26, 2024 01:13 PM HIP, UNILAT, 2-3 V IEWS LEFT W OR W/O PELVIS: GERDA NUNES [id number] -[id number] F Exm Date: NOV 26, 2024@13:13 Req Phys: GALDINO FONTANA Loc: [facility] 1 (Req'g Loc) Img Loc: -MAIN RADIOLOGY SUITE Service: Unknown Screen: Patient answered no [facility] [address] [place] [address] (Case [id number] COMPLETE) HIP, UNILAT, 2-3 VIEWS LEFT W OR (RAD Detailed) CPT:19836 Proc Modifiers : LEFT, AP Pelvis, Frog Reason for Study: Left hip pain Clinical History: Report Status: Verified Date Reported: NOV 28, 2024 Date Verified: NOV 28, 2024 Kiss Machine Operator E-Sig:/ES/ROSALINA CHANG Report: EXAMINATION: HIP, UNILAT, [...] osteoarthritis. Primary Interpreting Staff: ROSALINA CHANG, RADIOLOGIST (Kiss Machine Operator) /ROSALINA CROCKER [facility] Encounter Notes: All associated encounter notes This section contains the clinical notes associated to the Encounter. Date/Time Encounter Note(s) Provider Source Dec 17, 2024 08:14 PM PHYSICIAN EMERGENC Y DEPT NOTE: LOCAL TITLE: EMERGENCY DEPARTMENT ST STANDARD TITLE: PHYSICIAN EMERGENCY DEPT NOTE DATE OF NOTE: DEC 17, 2024@20:14 ENTRY DATE: DEC 17, 2024@20:14:52 AUTHOR: MARY HOUGH COSIGNER: URGENCY: STATUS: COMPLETED TRIAGE CHIEF COMPLAINT: L arm and upper back pain HPI:49 year old female that presents for L arm pain, some intermittent dizziness and fall in bath approx 1 week ago. She reports pain began after fall, she denies hitting head or LOC. She has PMH of Fibromyalgia, Anxiety, Depression. She denies any chest pain, shortness of breath, nausea or vomiting. She does report occasional diaphoresis. She is noted to be anxious and shaking in ED stretcher. She does take duloxitine and gabepentin, tylenol with codiene and topical for fibromyalgia and anxiety. REVIEW OF SYSTEMS: See HPI for further details. All 10 systems reviewed and otherwise negative unless otherwise detailed herein. PAST MEDICAL HISTORY: 1) Family history of ischemic heart disease (SNOMED CT 381574085) 2) Migraine (SNOMED CT 45999158) 3) Vitamin D deficiency 4) Hypothyroidism 5) Low back pain 6) Depression 7) Mastodynia 8) Lumbar radiculopathy 9) Irritable bowel syndrome characterized by alternating bowel habit 10) Fibromyalgia 11) Chronic pain in female pelvis 12) Kidney stone 13) Insomnia 14) Compartment syndrome 15) Obesity (SCT [id number]) 16) Arthritis 17) Intermittent palpitations 18) Chronic obstructive lung disease 19) Obstructive sleep apnea of adult 20) Poor pelvic muscle tone 21) Cervicalgia 22) Bacterial cellulitis 23) Overactive bladder 24) Iron deficiency CURRENT MEDICATIONS: Active Outpatient Medications (including Supplies): Active Outpatient Medications Status 1) CYANOCOBALAMIN 1000MCG/ML INJ INJECT 1000MCG/1ML ACTIVE INTRAMUSCULARLY EVERY 2 WEEKS Indication: FOR VITAMIN B12 SUPPLEMENTATION 2) DULOXETINE HCL 60MG EC CAP TAKE ONE CAPSULE BY MOUTH ONCE A ACTIVE DAY DO NOT ABRUPTLY DISCONTINUE MEDICATION. TO BE TAKEN ALONG WITH 30MG FOR TOTAL OF 90MG DAILY Indication: FOR DEPRESSION 3) FOLIC ACID 1MG TAB TAKE ONE TABLET BY MOUTH ONCE A DAY ACTIVE Indication: FOR FOLIC ACID SUPPLEMENTATION 4) GABAPENTIN 300MG CAP TAKE ONE CAPSULE BY MOUTH THREE TIMES A ACTIVE DAY NEEDED Indication: FOR PAIN 5) LEVOTHYROXINE NA 175MCG TAB TAKE ONE TABLET BY MOUTH EVERY ACTIVE MORNING BEFORE A MEAL TAKE 30 MINUTES BEFORE FOOD. TAKE SEPARATELY FROM ALL OTHER MEDICATIONS. Indication: FOR HYPOTHYROIDISM 6) LIDOCAINE 5% OINT APPLY LIGHTLY TO AFFECTED AREA(S) TWICE ACTIVE DAILY NEEDED Indication: FOR PAIN 7) NALOXONE HCL 4MG/SPRAY SOLN NASAL SPRAY USE 1 SPRAY (4MG) ACTIVE INTO ONE NOSTRIL ONLY ONE-TIME DO NOT PRIME NASAL SPRAY. SPRAY ONE DOSE IN ONE NOSTRIL, GIVE ADDITIONAL DOSE IF PATIENT DOES NOT START BREATHING WITHIN 2-3 MINUTES OR STOPS BREATHING AGAIN. CALL 911. IF USED, NOTIFY PROVIDER. Indication: FOR OPIOID OVERDOSE 8) SYRINGE 3ML/NDL 23G 1.5IN USE 1 SYRINGE INTRAMUSCULARLY ACTIVE EVERY 2 WEEKS Indication: FOR INJECTION 9) TIZANIDINE HCL 4MG TAB TAKE ONE TABLET BY MOUTH THREE TIMES ACTIVE A DAY NEEDED Indication: FOR SPASTICITY 10) TRAZODONE HCL 100MG TAB TAKE ONE TABLET BY MOUTH AT BEDTIME ACTIVE NEEDED Indication: FOR INSOMNIA I have reviewed the patient's medication list with the patient and/or his/her care-residential caregiver. Any medication discrepancies have been resolved. Patient will be provided with an updated list of his/her medication(s). SURGICAL HISTORY: not pertinent FAMILY HISTORY: not pertinent SOCIAL HISTORY: Social History Main Topics: Smoking status: No data available for: Current Tobacco User Alcohol Use: not indorsed <10 mg/dL (11/07/24 12:35) Illicit Drug Use: not indorsed Sexual Activity: Other Topics of Concern: ALLERGIES: Review of patient's allergies indicates: VITAMIN B12 1000MCG, PANTOPRAZOLE, AMOXICILLIN, FLONASE NASAL SOLUTION PREGABALIN, METHOCARBAMOL PHYSICAL EXAM: VITAL SIGNS: 142/110 (12/17/2024 18:41)106 (12/17/2024 18:41)98% (11/26/2024 12:35)97.9 F [36.6 C] (12/17/2024 18:41)16 (12/17/2024 18:41)The OBJECT WEIGHT LAST 3 was NOT found...Contact IRM. MAThe OBJECT was NOT found...Contact IRM.PAIN ASSESSMENTThe OBJECT was NOT found...Contact IRM. Measurement DT PAIN 12/17/2024 18:41 6 CONSTITUTIONAL: No acute distress, Non-toxic appearance, anxious HENT: airway patent EYES: Conj pink, sclera clear, EOM's intact CARDIOVASCULAR: Normal heart rate, Normal rhythm PULMONARY/CHEST: clear throughout ABDOMEN: Soft, flat, No tenderness EXTREMITIES: Normal range of motion, No edema,tenderness LUE at glenohumeral and forearm in addition to upper back, no abrasion noted. good distal pulses NEUROLOGIC: Alert & oriented x 3, Normal motor function, Normal gait, no ataxia, No focal deficits appreciated on cursory screening exam SKIN: Warm, Dry, No erythema, No rash LABS: WBC 7.5 10*3/uL 3.6 - 11.2 RBC 4.79 10*6/uL 3.60 - 5.00 HGB 14.5 g/dL 11.0 - 14.9 HCT 43.1 % 32.6 - 43.4 MCV 90.0 fL 80.0 - 100.0 MCH 30.3 pg 27.0 - 34.0 MCHC 33.6 g/dL 33.0 - 36.0 RDW 12.2 % 11.8 - 15.1 PLT 312 10*3/uL 150 - 400 MPV 10.5 fL 7.5 - 11.2 NEUTROPHILS, AUTO % 48 % LYMPHOCYTES, AUTO % 42 % MONOCYTES, AUTO % 7 % EOSINOPHILS, AUTO % 2 % BASOPHILS, AUTO % 1 % NEUTROPHILS, ABSOLUTE 3.60 10*3/uL 2.10 - 8.00 LYMPHOCYTES, ABSOLUTE 3.17 10*3/uL 0.77 - 4.50 MONOCYTES, ABSOLUTE 0.49 10*3/uL 0.19 - 0.80 EOSINOPHILS, ABSOLUTE 0.15 10*3/uL 0.00 - 0.60 BASOPHILS, ABSOLUTE 0.08 10*3/uL 0.00 - 0.20 SODIUM 138 mEq/L 136 - 145 POTASSIUM 4.2 mEq/L 3.5 - 5 CHLORIDE 104 mEq/L 98 - 107 UREA NITROGEN 17.8 mg/dL 9.0 - 25.0 CREATININE 0.89 mg/dL 0.6 - 1.1 CALCIUM 9.7 mg/dL 8.4 - 10.4 PROTEIN 7.5 g/dL 6 - 8.6 ALBUMIN 4.2 g/dL 3.4 - 5 ALKALINE PHOSPHATASE 85 U/L 40 - 150 ALT/SGPT 24 U/L 8 - 40 AST/SGOT 42 H U/L 5 - 34 TOTAL BILIRUBIN 0.3 mg/dL 0.2 - 1.2 CARBON DIOXIDE 23 mEq/L 22 - 31 GLUCOSE 103 H mg/dL 72 - 99 TROPONIN I <0.010 ng/mL 0 - 0.033 EGFR (CKD-EPI 2020) 79.9 Ref: >=60 RADIOLOGY: ECG IMPRESSION: ED COURSE & MEDICAL DECISION MAKIN49 year old female with L arm pain, no acute EKG changes, neg trop and tenderness. Plan to give oxycondone here, home with additional dose and hydroxizine for anxiety. Warnings on when to return. Nursing notes, medications, vital signs, allergies and pertinent labs & imaging studies reviewed (see chart for details) with lab results reviewed with patient and family/caregivers at bedside and radiology results reviewed with patient and any family/caregivers at bedside. Stable, alert, nontoxic, nonfocal with clinically apparent L arm pain, anxiety Clinical information obtained from an independent historian. History obtained from or confirmed by: ___spouse ___parent ___guardian _x__family ___friend ___EMS ___other: Discussed with radiology regarding test interpretation: I performed an independent interpretation of: _x__EKG ___rhythm strip ___plain x-ray ___ultrasound ___CT scan ___MRI ___other Patient's care impacted by: ___Diabetes ___Hypertension ___Cancer _x__other: Fibromyalgia Patient's care is significantly limited by social determinants of health including, but not limited to: ___inadequate housing ___low income ___alcoholism and drug addiction in family ___problems related to primary support group ___unemployment ___problems with employment ___language barrier ___lack of transportation _x__psychiatric disease ___other social determinants of health: External records reviewed: ___Inpatient records ___office records __x_outpatient records _x__prior outpatient labs _x__prior outpatient radiology ___primary care record ___outside ED record ___PMD referral ___outside ER ___urgent care referral _x__other: EKG PRIMER CHARGER SERVICE/TIME: MEDICATIONS GIVEN IN ED: [ x ] YES [ ] NO oxycondone/apap 5-325 DIFFERENTIAL DIAGNOSES CONSIDERED: CAD, contusion, spasm, anxiety DECISION to ADMIT / DISCHARGE TIME: 2049 DISPOSITION CONDITION:[ x ] Improved [ ] Unchanged [ ] Deteriorated CLINICAL IMPRESSION: 1 - LUE pain 2 - fall 3 - anxiety DISCHARGE INSTRUCTIONS AND PATIENT-DIRECTED FOLLOW-UP RECOMMENDATIONS: DIET: ACTIVITY: NEW MEDS: hydroxizine 25mg prn MEDICATION RECONCILIATION: CONTINUE ALL PRESCRIBED MEDICATIONS DIRECTED EXCEPT: FOLLOW-UP WITH PRIMARY FOOD AND NUTRITION SUPERVISOR/SPECIALIST: RETURN TO EMERGENCY: if any worries or concerns ADDITIONAL SIGNATURE PCP: [x ] YES [ ] NO [ ] not listed Active Outpatient Medications (including Supplies): Active Outpatient Medications Status 1) CYANOCOBALAMIN 1000MCG/ML INJ INJECT 1000MCG/1ML ACTIVE INTRAMUSCULARLY EVERY 2 WEEKS Indication: FOR VITAMIN B12 SUPPLEMENTATION 2) DULOXETINE HCL 60MG EC CAP TAKE ONE CAPSULE BY MOUTH ONCE A ACTIVE DAY DO NOT ABRUPTLY DISCONTINUE MEDICATION. TO BE TAKEN ALONG WITH 30MG FOR TOTAL OF 90MG DAILY Indication: FOR DEPRESSION 3) FOLIC ACID 1MG TAB TAKE ONE TABLET BY MOUTH ONCE A DAY ACTIVE Indication: FOR FOLIC ACID SUPPLEMENTATION 4) GABAPENTIN 300MG CAP TAKE ONE CAPSULE BY MOUTH THREE TIMES A ACTIVE DAY NEEDED Indication: FOR PAIN 5) LEVOTHYROXINE NA 175MCG TAB TAKE ONE TABLET BY MOUTH EVERY ACTIVE MORNING BEFORE A MEAL TAKE 30 MINUTES BEFORE FOOD. TAKE SEPARATELY FROM ALL OTHER MEDICATIONS. Indication: FOR HYPOTHYROIDISM 6) LIDOCAINE 5% OINT APPLY LIGHTLY TO AFFECTED AREA(S) TWICE ACTIVE DAILY NEEDED Indication: FOR PAIN 7) NALOXONE HCL 4MG/SPRAY SOLN NASAL SPRAY USE 1 SPRAY (4MG) ACTIVE INTO ONE NOSTRIL ONLY ONE-TIME DO NOT PRIME NASAL SPRAY. SPRAY ONE DOSE IN ONE NOSTRIL, GIVE ADDITIONAL DOSE IF PATIENT DOES NOT START BREATHING WITHIN 2-3 MINUTES OR STOPS BREATHING AGAIN. CALL 911. IF USED, NOTIFY PROVIDER. Indication: FOR OPIOID OVERDOSE 8) SYRINGE 3ML/NDL 23G 1.5IN USE 1 SYRINGE INTRAMUSCULARLY ACTIVE EVERY 2 WEEKS Indication: FOR INJECTION 9) TIZANIDINE HCL 4MG TAB TAKE ONE TABLET BY MOUTH THREE TIMES ACTIVE A DAY NEEDED Indication: FOR SPASTICITY 10) TRAZODONE HCL 100MG TAB TAKE ONE TABLET BY MOUTH AT BEDTIME ACTIVE NEEDED Indication: FOR INSOMNIA /es/ VICTOR M HOUGH MS INTERMEDIATE SCHOOL TEACHER-C NURSE PRACTITIONER Signed: 12/17/2024 21:29 Receipt Acknowledged By: 12/19/2024 11:25 /es/ VERNA BARRERA MD 12/18/2024 07:50 /tamera/ Cherrie Dickey RN Registered Nurse, MARY DEXTER OR Renata [facility]
--- OUTSIDE RECORDS SUMMARY | 2025-03-22 22:01 | XMS_ITS | Encounter Summary ---
Author Name [facility] [place] [facility] [place] Address [address] [place] [address] Care Team Providers Care Varnish Melter Name Role Phone VERNA BARRERA Primary Care [...] AID (WNR) Oct 23, 2016 MEDICAI D [id number] GERDA NUNES PATIENT Selected Encounter This section includes the information on record at [place] for the Encounter. Date/Time Encounter Type Encounter Description Reason Provider Source 2024 09:30 AM [facility] TRAINING THERAPY PHYSICAL THERAPY ICD-10-CM M54.32 Sciatica, left side CHAPARRITA MALIK Cecile Encounter Template Text not used by [place] Assessments - Encounter Diagnoses This section includes the primary and secondary diagnoses documented for the Encounter. Date/Time Primary/Secondary Diagnosis Diagnosis Name Provider Source 2024 10:35 AM PRIMARY Sciatica, left side SHAN DOUGLASS [facility] Plan of Treatment: Future Appointments (+ 6 months) and Future Tests (+/- 45 days) The Plan of Treatment section includes future care activities for the patient from all [place] [facility] This section includes future appointments and future orders which are active, pending or scheduled. Future Appointments This section includes appointments that were scheduled to occur 6 months from the date of the Encounter, up to a maximum of 20 appointments. The data comes from all [facility]. Appointment Date/Time Appointment Type Appointme nt Facility Name Jul 22, 2024 10:00 AM AMBULATORY - MEDICINE [facility] Oct 22, 2024 11:30 AM AMBULATORY - MEDICINE [facility] Nov 07, 2024 08:41 AM AMBULATORY - MEDICINE [facility] Nov 12, 2024 10:30 AM AMBULATORY - MEDICINE [facility] Nov 14, 2024 09:30 AM AMBULATORY MEDICINE [facility] Nov 26, 2024 12:30 PM AMBULATORY - SURGERY [facility] Dec 17, 2024 06:28 PM AMBULATORY - MEDICINE [facility] Jan 02, 2025 01:00 PM AMBULATORY - PSYCHIATRY [facility] Jan 07, 2025 11:30 AM AMBULATORY - MEDICINE [facility] Active, Pending, and Scheduled Orders This section [...] comes from all [facility]. Test Date/Time Test Type Test Details Facility Name Jul 11, 2024 04:51 PM Laboratory - Chemi stry Order TSH W/ REFLEX FT4 (STL) GREEN LI-HEP PLASMA WC [facility] Jul 12, 2024 12:00 AM Laboratory - Chemi stry Order HAPTOGLOBIN (STL) GOLD/RED SST SERUM SP [facility] Jul 12, 2024 12:00 AM Laboratory - Chemi stry Order LDH GREEN LI/HEP BLD/PLAS PLASMA SP [facility] Jul 12, 2024 12:00 AM Laboratory - Chemi stry Order FERRITIN GOLD/RED SST SERUM SP [facility] Jul 12, 2024 12:00 AM Laboratory - Chemi stry Order IRON/TIBC PROFILE GOLD/RED SST SERUM [facility] Jul 12, 2024 12:00 AM Laboratory - Chemi stry Order RETIC RATIO BLOOD SP [facility]CE [facility] Jul 12, 2024 12:00 AM Laboratory - Chemi stry Order B12 GOLD/RED SST SERUM SP [facility] Jul 12, 2024 12:00 AM Laboratory - Chemi stry Order FOLATE (STL-MA) GOLD/RED SST SERUM SP [facility] Jul 16, 2024 11:36 PM Laboratory - Chemi stry Order MRSA SURVL NARES DNA NARES WC [facility] Lab Results: +/- 30 days of the [...] Type Comment Jul 20, 2024 11:28 AM [facility] GLUCOSE,BLOOD-poct (STL) BLOOD Specimen Type: BLOOD Comment: Test Performed by: [id number] Meter #: [id number] Ordering Provider: KRYSTIAN KUMARI Report Released Date/Time: Jul 20, 2024 11:50 AM Reporting Lab: [facility] [address] [address] Performing Lab: [facility] [address] [address] GLUCOSE,BLOOD-poct (STL) 78 mg/dL 72-99 Jul 20, 2024 08:02 AM [facility] MAGNESIUM PLASMA Specimen Type: PLASM A Comment: No hemolysis noted. Ordering Provider: MICHAEL FELIZ Report Released Date/Time: Jul 17, 2024 03:01 PM Reporting Lab: [place] [id number] [address] Performing Lab: [facility] [address] [address] MAGNESIUM 2.1 mg/dL 1.6-2.6 Jul 20, 2024 08:02 AM [facility] RENAL PANEL PLASMA Specimen Type: PLASM A Comment: No hemolysis noted. Ordering Provider: MICHAEL FELIZ Report Released Date/Time: Jul 17, 2024 03:01 PM Reporting Lab: [address] [address] Performing Lab: [address] [address] CREATININE 0.81 mg/dL 0.6-1.1 UREA NITROGEN 16.7 mg/dL 9.0-25.0 GLUCOSE 99 mg/dL 72-99 SODIUM 142 meq/L 136-145 POTASSIUM 4.2 meq/L 3.5-5 CHLORIDE 108 meq/L H 98-107 CARBON DIOXIDE 25 meq/L 22-31 CALCIUM 9.6 mg/dL 8.4-10.4 PHOSPHOROUS 3.9 mg/dL 2.3-4.7 ALBUMIN 3.7 g/dL 3.4-5 EGFR (CKD-EPI 2020) 89.5 >60 Jul 19, 2024 04:23 PM [facility] GLUCOSE,BLOOD-poct (STL) BLOOD Specimen Type: BLOOD Comment: Test Performed by: [id number] Meter #: [id number] Ordering Provider: KRYSTIAN KUMARI Report Released Date/Time: Jul 19, 2024 04:54 PM Reporting Lab: [address] [address] Performing Lab: [address] [address] GLUCOSE,BLOOD-poct (STL) 74 mg/dL 72-99 Jul 19, 2024 11:32 AM [facility] GLUCOSE,BLOOD-poct (STL) BLOOD Specimen Type: BLOOD Comment: Test Performed by: [id number] Meter #: [id number] Ordering Provider: QUOCMED Report Released Date/Time: Jul 19, 2024 11:55 AM Reporting Lab: [address] [address] Performing Lab: [facility] [address] [address] GLUCOSE,BLOOD-poct (STL) 78 mg/dL 72-99 Jul 19, 2024 06:59 AM [facility] MAGNESIUM PLASMA Specimen Type: PLASM A Comment: No hemolysis noted. Ordering Provider: MICHAEL FELIZ Report Released Date/Time: Jul 17, 2024 03:01 PM Reporting Lab: [facility] [address] [address] Performing Lab: [place] [address] [address] [address] MAGNESIUM 2.1 mg/dL 1.6-2.6 Jul 19, 2024 06:59 AM [facility] RENAL PANEL PLASMA Specimen Type: PLASM A Comment: No hemolysis noted. Ordering Provider: MICHAEL FELIZ Report Released Date/Time: Jul 17, 2024 03:01 PM Reporting Lab: [facility] [address] [address] Performing Lab: [place] [address] [address] [facility] [address] CREATININE 0.88 mg/dL 0.6-1.1 UREA NITROGEN 19.2 mg/dL 9.0-25.0 GLUCOSE 52 mg/dL L 72-99 SODIUM 143 meq/L 136-145 POTASSIUM 3.5 meq/L 3.5-5 CHLORIDE 108 meq/L H 98-107 CARBON DIOXIDE 26 meq/L 22-31 CALCIUM 10.0 mg/dL 8.4-10.4 PHOSPHOROUS 3.8 mg/dL 2.3-4.7 ALBUMIN 4.1 g/dL 3.4-5 EGFR (CKD-EPI 2020) 81.0 >60 Jul 19, 2024 06:59 AM [facility] CBC BLOOD Specimen Type: BLOOD No comment entered. Ordering Provider: MICHAEL FELIZ Report Released Date/Time: Jul 17, 2024 03:01 PM Reporting Lab: [place] [address] [address] [address] Performing Lab: [facility] [address] [address] WBC 4.6 10*3/uL 3.6-11.2 RBC 4.82 10*6/uL [...] 0.05 10*3/uL 0.00-0. 20 2024 06:35 AM [facility] MAGNESIUM PLASMA Specimen Type: PLASM A Comment: No hemolysis noted. Ordering Provider: MICHAEL FELIZ Report Released Date/Time: Jul 17, 2024 03:01 PM Reporting Lab: [address] [address] Performing Lab: [address] [address] MAGNESIUM 2.2 mg/dL 1.6-2.6 2024 06:35 AM [facility] FERRITIN SERUM Specimen Type: SERUM No comment entered. Ordering Provider: MICHAEL FELIZ Report Released Date/Time: Jul 17, 2024 03:01 PM Reporting Lab: [address] [address] Performing Lab: [address] [address] FERRITIN 11.54 ng/mL 10-204 2024 06:35 AM [facility] B12 SERUM Specimen Type: SERUM No comment entered. Ordering Provider: MICHAEL FELIZ Report Released Date/Time: Jul 17, 2024 03:01 PM Reporting Lab: [facility] [address] [address] Performing Lab: [facility] [address] [address] B12 194 pg/mL L 213-816 2024 06:35 AM [facility] IRON/TIBC PROFILE SERUM Specimen Type: SERUM No comment entered. Ordering Provider: MICHAEL FELIZ Report Released Date/Time: Jul 17, 2024 03:01 PM Reporting Lab: [facility] [address] [address] Performing Lab: [facility] [address] [address] TIBC 420 ug/dL 250-450 TRANSFERRIN 336 mg/dL 173-360 IRON SATURATION 11 L 20-50 IRON 45 ug/dL L 50-170 2024 06:35 AM [facility] FOLATE (L-MA) SERUM Specimen Type: SERUM No comment entered. Ordering Provider: MICHAEL FELIZ Report Released Date/Time: Jul 17, 2024 03:01 PM Reporting Lab: [facility] [address] [address] Performing Lab: [facility] [address] [address] FOLATE (STL-MA) 8.8 ng/mL 7-20 2024 06:35 AM [facility] VITAMIN D, 25-HYDROXY SERUM Specimen Type: SE RUM No comment entered. Ordering Provider: MICHAEL FELIZ Report Released Date/Time: Jul 17, 2024 03:49 PM Reporting Lab: [facility] [address] [address] Performing Lab: [facility] [address] [address] VITAMIN D, 25-HYDROXY 39.3 ng/mL 30-96 2024 06:35 AM [facility] CBC BLOOD Specimen Type: BLOOD No comment entered. Ordering Provider: MICHAEL FELIZ Report Released Date/Time: Jul 17, 2024 03:01 PM Reporting Lab: [address] [address] Performing Lab: [address] [address] WBC 5.6 10*3/uL 3.6-11.2 RBC 4.41 10*6/uL [...] 0.05 10*3/uL 0.00-0. 20 2024 06:35 AM [facility] RENAL PANEL PLASMA Specimen Type: PLASM A Comment: No hemolysis noted. Ordering Provider: MICHAEL FELIZ Report Released Date/Time: Jul 17, 2024 03:01 PM Reporting Lab: [address] [address] Performing Lab: [address] [address] CREATININE 0.85 mg/dL 0.6-1.1 UREA NITROGEN 20.0 mg/dL 9.0-25.0 GLUCOSE 91 mg/dL 72-99 SODIUM 142 meq/L 136-145 POTASSIUM 4.2 meq/L 3.5-5 CHLORIDE 108 meq/L H 98-107 CARBON DIOXIDE 26 meq/L 22-31 CALCIUM 9.6 mg/dL 8.4-10.4 PHOSPHOROUS 4.9 mg/dL H 2.3-4.7 ALBUMIN 3.9 g/dL 3.4-5 EGFR (CKD-EPI 2020) 84.5 >60 Jul 17, 2024 08:37 PM [facility] VITAMIN B1 PLASMA Specimen Type: PLASM A Comment: Vitamin supplementation within 24 hours prior to blood draw may affect the accuracy of the results. This test was developed and its analytical performance characteristics have been determined by [facility] [place], [place]. It has not been cleared or approved by the U.S. Food and Drug Administration. This assay has been validated pursuant to the CLIA regulations and is used for clinical purposes. Test Performed by [facility], [facility], [address] [place] [address] Remi Dos Santos M.D., Ph.D., Director of Laboratories , CLIA [id number] Ordering Provider: MICHAEL FELIZ Report Released Date/Time: Jul 17, 2024 04:40 PM Reporting Lab: [address] [address] Performing Lab: [facility] [address] [facility] VITAMIN B1 13 nmol/L 8-30 Jul 17, 2024 06:48 AM [facility] TSH (MA-PB) SERUM Specimen Type: SERUM No comment entered. Ordering Provider: REMINGTON COTA Report Released Date/Time: Jul 17, 2024 03:52 AM Reporting Lab: [facility] [address] [address] Performing Lab: [facility] [address] [place] [address] TSH 3.837 u[IU]/mL 0.47-5 Jul 17, 2024 06:48 AM [facility] BASIC METABOLIC PANEL PLASMA Specimen Type: PL ASMA Comment: No hemolysis noted. Ordering Provider: REMINGTON COTA Report Released Date/Time: Jul 16, 2024 11:36 PM Reporting Lab: [address] [address] Performing Lab: [address] [address] CREATININE 0.89 mg/dL 0.6-1.1 UREA NITROGEN 14.1 mg/dL 9.0-25.0 GLUCOSE 86 mg/dL 72-99 SODIUM 144 meq/L 136-145 POTASSIUM 3.5 meq/L 3.5-5 CHLORIDE 109 meq/L H 98-107 CARBON DIOXIDE 24 meq/L 22-31 CALCIUM 9.7 mg/dL 8.4-10.4 EGFR (CKD-EPI 2020) 80.4 >60 Jul 17, 2024 06:48 AM [facility] CBC BLOOD Specimen Type: BLOOD No comment entered. Ordering Provider: REMINGTON COTA Report Released Date/Time: Jul 16, 2024 11:36 PM Reporting Lab: [address] [address] Performing Lab: [address] [address] WBC 6.0 10*3/uL 3.6-11.2 RBC 4.55 10*6/uL [...] 0.00-0. 20 Jul 16, 2024 11:44 PM [facility] MRSA SURVL NARES DNA NARES Specimen Type: [...] Jul 16, 2024 11:36 PM Reporting Lab: [place] [address] Performing Lab: [place] [address] MRSA SURVL NARES DNA Negative Negative Jul 16, 2024 04:15 PM [facility] TEST URINE (MA-STL) URINE Specimen Type: URINE No comment entered. Ordering Provider: ROBERTA RIVAS Report Released Date/Time: Jul 16, 2024 01:23 PM Reporting Lab: [address] [address] Performing Lab: [address] [address] Qualitative Test NEG NEGAT MISAEL Jul 16, 2024 04:15 PM [facility] URINALYSIS W/ CX REFLEX (STL-PB) URINE Specim en Type: URINE No comment entered. Ordering Provider: ROBERTA RIVAS Report Released Date/Time: Jul 16, 2024 01:23 PM Reporting Lab: [facility] [address] [address] Performing Lab: [address] [address] URINE COLOR Yellow Yellow U.BILIRUBIN Negative mg/dL [...] 1.026 1.005-1.029 Jul 16, 2024 02:30 PM [facility] CPK PLASMA Specimen Type: PLASM A Comment: No hemolysis noted. Ordering Provider: ROBERTA RIVAS Report Released Date/Time: Jul 16, 2024 01:23 PM Reporting Lab: [place] [address] [address] [address] Performing Lab: [address] [address] CPK 92 U/L 29-168 Jul 16, 2024 02:30 PM [facility] MAGNESIUM PLASMA Specimen Type: PLASM A Comment: No hemolysis noted. Ordering Provider: ROBERTA RIVAS Report Released Date/Time: Jul 16, 2024 01:23 PM Reporting Lab: [address] [address] Performing Lab: [address] [address] MAGNESIUM 2.0 mg/dL 1.6-2.6 Jul 16, 2024 02:30 PM [facility] PHOSPHOROUS PLASMA Specimen Type: PLASM A Comment: No hemolysis noted. Ordering Provider: ROBERTA RIVAS Report Released Date/Time: Jul 16, 2024 01:23 PM Reporting Lab: [facility] [address] [place] [address] Performing Lab: [facility] [address] [place] [address] PHOSPHOROUS 3.4 mg/dL 2.3-4.7 Jul 16, 2024 02:30 PM [facility] COMPREHENSIVE METABOLIC PANEL PLASMA Specimen Type: PLASMA Comment: No hemolysis noted. Ordering Provider: ROBERTA RIVAS Report Released Date/Time: Jul 16, 2024 01:23 PM Reporting Lab: [facility] [address] [place] [address] Performing Lab: [address] [address] CREATININE 0.86 mg/dL 0.6-1.1 UREA NITROGEN 15.1 [...] 83.8 >60 Jul 16, 2024 02:30 PM [facility] CBC BLOOD Specimen Type: BLOOD No comment entered. Ordering Provider: ROBERTA RIVAS Report Released Date/Time: Jul 16, 2024 01:23 PM Reporting Lab: [facility] [address] [place] [address] Performing Lab: [address] [address] WBC 6.3 10*3/uL 3.6-11.2 RBC 4.76 10*6/uL [...] Pain Height Weight Body Mass Index Source 2024 09:37 PM 97.6 69 100/61 18 91 6 [facility] 2024 09:25 PM 5 [facility] 2024 08:03 PM 1 [facility] 2024 06:21 PM 6 [facility] 2024 01:29 PM 98.7 58 110/68 20 97 0 [facility] Social History: Smoking Status (Most current) and Tobacco Use (All prior to encounter date) This section includes the most current, and the historical, smoking and tobacco- related health factors from the [place] facility where the Encounter took place. Current Smoking Status This section includes the most current smoking, or tobacco-related health factor, from the [place] facility where the Encounter took place. Date/Time Current Smoking Status Comment Facil ity Jul 17, 2024 03:18 AM ORYX ADMIT TOBACCO SCREEN NO [facility] Tobacco Use History This section includes a history of the smoking, or tobacco-related health factors, that were collected on or before the date of the Encounter. The data comes from the [place] facility where the Encounter took place. Date/Time Smoking Status/Tobacco Use Comment F acility Nov 09, 2023 06:45 AM ORYX ADMIT TOBACCO SCREEN NO [facility] May 25, 2022 11:42 AM ORYX ADMIT TOBACCO SCREEN NO [facility] May 13, 2022 08:14 PM ORYX ADMIT TOBACCO SCREEN NO [facility] Apr 07, 2022 03:34 AM ORYX ADMIT TOBACCO SCREEN REFUSED [facility] Dec 20, 2021 12:44 PM ORYX ADMIT TOBACCO SCREEN NO [facility] Aug 23, 2021 08:22 PM ORYX ADMIT TOBACCO SCREEN NO [facility] Aug 12, 2021 06:24 PM ORYX ADMIT TOBACCO SCREEN NO [facility] May 12, 2008 06:16 PM LIFETIME NON-USER OF TOBACCO [facility] Jun 28, 2007 01:18 PM LIFETIME NON-USER OF TOBACCO [facility] May 03, 2006 10:56 AM LIFETIME NON-TOBACCO USER [facility] Dec 03, 2003 08:16 AM LIFETIME NON-TOBACCO USER [facility] Radiology Reports: +/- 30 days of the [...] the Encounter. The data comes from all [facility] facilities. Date/Time Radiology Report Provider Source Jul 16, 2024 02:59 PM TIBIA & FIBULA,LEF T, 2 VIEWS: GERDA NUNES [id number] -1975 F Exm Date: JUL 16, 2024@14:59 Req Phys: ROBERTA RIVAS Loc: BIN-EMERGENCY DEPT 2ND SHIFT (R Img Loc: BIN-MAIN RADIOLOGY SUITE Service: Unknown Screen: Patient answered no [facility] [address] [place] [address] (Case [id number] COMPLETE) TIBIA & FIBULA,LEFT, 2 VIEWS (RAD Detailed) CPT:18968 Proc Modifiers : LEFT Reason for Study: left calf pain, rule out foregin body Clinical History: Report Status: Verified Date Reported: JUL 16, 2024 Date Verified: JUL 16, 2024 Woodworking Machinist E-Sig:/ES/INDIO SHARMA Report: EXAMINATION: TIBIA & FIBULA,LEFT, [...] Primary Interpreting Staff: INDIO SHARMA, Diagnostic Radiologist (Woodworking Machinist) /INDIO BRANDT [facility] Jul 16, 2024 02:47 PM US EXTREMITY VEINS UNILAT OR LTD: GERDA NUNES [facility] [id number] -1975 F Exm Date: JUL 16, 2024@14:47 Req Phys: ROBERTA RIVAS Loc: BIN-EMERGENCY DEPT 2ND SHIFT (R Img Loc: -ULTRASOUND BIN Service: Unknown Screen: Patient answered no [facility], [facility] [address] [place] [address] (Case [id number] COMPLETE) US EXTREMITY VEINS UNILAT OR LTD (US Detailed) CPT:54784 Reason for Study: left leg pain Clinical History: Report Status: Verified Date Reported: JUL 16, 2024 Date Verified: JUL 16, 2024 Woodworking Machinist E-Sig:/TAMERA/INDIO SHARMA Report: Case [id number] US EXTREMITY VEINS UNILAT OR LTD Comparison: Left lower extremity ultrasound 11/09/2023. Findings: The left lower extremity deep veins are compressible throughout their course. No thrombi are visualized. Venous flow velocities demonstrate normal variation with respiration and augmentation. Impression: No evidence of deep venous thrombosis of the left lower extremity deep veins. Dictated by Kanika Lucero M.D. (residential lawn specialist). I, Indio Sharma, have reviewed the images and report and concur with these findings. Primary Interpreting Staff: INDIO SHARMA, Diagnostic Radiologist (Woodworking Machinist) Primary Interpreting Resident: KANIKA LUCERO, Diagnostic E Business Consultant /INDIO ABARCA [facility] Jun 27, 2024 06:00 AM MRI SPINE THORACIC W/O CONT: GERDA NUNES [facility] [id number] -1975 F Exm Date: JUN 27, 2024@06:00 Req Phys: VERNA BARRERA Pat Loc: [facility] PACT 6 PCP (Req'g Lo Img Loc: OUTSIDE BIN-MRI Service: Unknown Screen: Patient answered no (Case [id number] COMPLETE) MRI SPINE THORACIC W/O CONT (MRI Detailed) CPT:36634 Reason for Study: OUTSIDE STUDY Clinical History: Report Status: Electronically Filed Date Reported: JUL 08, 2024 Report: This study was performed outside the [place] in another facility and images were uploaded into [facility]. The report has been scanned into [employer]. In order to upload images a case number was needed, therefore this is an administrative report. Impression: This study was performed outside the [place] in another facility and images were uploaded into [employer]. The report has been scanned into [employer]. In order to upload images a case number was needed, therefore this is an administrative report VERIFIED BY: / *ELECTRONICALLY FILED* [facility] Encounter Notes: All associated encounter notes This section contains the clinical notes associated to the Encounter. Date/Time Encounter Note(s) Provider Source 2024 10:12 AM PHYSICAL MEDICINE REHAB NOTE: LOCAL TITLE: PT DAILY STL STANDARD TITLE: PHYSICAL MEDICINE REHAB NOTE DATE OF NOTE: 2024@10:12 ENTRY DATE: 2024@10:13:30 AUTHOR: SY DOUGLASS COSIGNER: CHAPARRITA MALIK URGENCY: STATUS: COMPLETED PT DAILY STL Has ADDENDA PHYSICAL THERAPY TREATMENT: JASMYN Horner Provisional Dx: Sciatica, left side (ICD-10-CM M54.32) Requesting Provider:Remington Cota Reason for Request: New or evolving neurological deficit such as stroke, SCI, TBI, Multiple Sclerosis, etc. Patient with worsenig left lower extremity pain and potentially would need strengthening exercises. PRECAUTIONS: As tolerated Activity order: Ad daniel -Other people involved in treatment []None [x]Included: Chaparrita Malik DPT Length of Visit:[id number] (16 minutes) Evaluation: ___Low _x__Mod ___ High Treatment:PT Treatment (gait training x1) Evaluation Date: 07/17/2024 Visit #2 # of refusals:0 HISTORY OF PRESENT ILLNESS: [...] history of ischemic heart disease (SNOMED CT 953753858) 2) Migraine (SNOMED CT 18336150) 3) Vitamin D deficiency 4) Hypothyroidism 5) Low back pain 6) Depression 7) Mastodynia 8) Lumbar radiculopathy 9) Irritable bowel syndrome characterized by alternating bowel habit 10) Fibromyalgia 11) Chronic pain in female pelvis 12) Kidney stone 13) Insomnia 14) Compartment syndrome 15) Obesity (SCT [id number]) 16) Arthritis 17) Intermittent palpitations 18) Chronic [...] agreeable to PT session. Patient reports pain is controlled this morning. Patient reports she got up with nursing staff this morning to use the restroom and get weighed, she notes her gait was unsteady. Pt goals: None obtained during encounter at this date. COGNITION/COMMUNICATION: alert and oriented in all spheres. Communication limited by left calf pain and fatigue. Patient was more alert during session than previous date. Barriers to learning: None PAIN: Pain score not obtained, patient reports pain levels are improving. Location: Left calf and knee Quality: achy, heavy, stiffness Pain intervention: See RN notes for medical management of pain. Abbreviations: WFL=Within Functional Limits; (I)=Independent; A=Assist; A/PROM=Act.Rom/Passive ROM; STR=Strength; SUP=Supervision; NT=Not Tested; VC=Verbal Cues; DIRECTOR HOME=Prior To Admission; CNH=Community Care Home; CGA=Contact Guard Assist OBJECTIVE: Patient recieved at bed level. LDA: None VITALS: Not obtained during encounter at this date. Patient does not report adverse symptoms. Position BP HR O2 FUNCTIONAL MOBILITY: Rolling: Not tested Supine <-> sit: Independent Scooting: Independent Transfer bed <-> chair: Modified independent with rollator seat. Sit <-> stand: Modified independent with rollator Gait:Patient ambulated 100 ft (room <> stairwell) with standby assist-contact guard assist for safety with rollator. Patient tolerated ambulation in hallway with rollator well, patient is limited by left LE pain and weakness. Patient notes the rollator helped her to feel more stable when ambulating. With use of rollator patient demonstrates improved gait pattern and stability on left LE. -gait pattern/deviations: Patient demonstrated decreased weight bearing through the left LE, decreased stride length, and decreased heel strike on the left. W/C mobility: Not tested Stairs: Patient was agreeable to navigating stairs with therapy today. She ascended/descended 10 steps with left handrail with minimal assist from therapist. Patient educated verbally on technique for ascending/descending stairs with and without use of a cane. Interventions: []Therapeutic Exercise []Therapeutic Activity []Neuromuscular Re-education [x]Gait training Patient ambulated 100 ft (room <> stairwell) with standby assist-contact guard assist for safety with rollator. Patient tolerated ambulation in hallway with rollator well, patient is limited by left LE pain and weakness. Patient notes the rollator helped her to feel more stable when ambulating. With use of rollator patient demonstrates improved gait pattern and stability on left LE. -gait pattern/deviations: Patient demonstrated decreased weight bearing through the left LE, decreased stride length, and decreased heel strike on the left. W/C mobility: Not tested Stairs: Patient was agreeable to navigating stairs with therapy today. She ascended/descended 10 steps with left handrail with minimal assist from therapist. Patient educated verbally on technique for ascending/descending stairs with and without use of a cane. []Balance training [x]EDUCATION: Pt/family member demonstrated understanding [...] assistance with transfers Patient was left sitting edge of bed, all needs met, call light in reach. Patient reports she wanted to get up to the bathroom following therapy session, declined assistance from therapist. Assessment: Pt is a 48 year-old female admitted to [facility] on 07/16/2024 for left calf pain. Patient's PMH includes: migraines, fibromyalgia, chronic pain syndrome, cervicalgia, lumbar DDD, and arthritis. Pt referred to PT for evaluation on 07/17/2024. Patient tolerated treatment session well. Patient educated on importance of locking rollator breaks during sit <> stand transfers. Patient ambulated 100 ft (room <> stairwell) with standby assist - contact guard assist for safety. Patient required a short seated rest break following ambulation to the stairwell. Patient was able to ascend/descend 10 steps using the left handrail with minimal assistance from therapist. Patient educated on techniques to use when navigating stairs with or without a cane or assistance. Patient required a short seated rest break following stair training. Patient demonstrated improved gait speed with use of rollator today, however she continues to lack heel strike on the left foot due to left LE pain. Patient reports increased tolerance to ambulation with therapy today as her pain has been well managed this morning. Will continue treating patient while hospitalized to continue working on LE strength and functional mobility. DISCHARGE RECOMMENDATION: [x]Other: Anticipate safe discharge home when pain is managed. Therapy recommends following up with outpatient PT to continue to address L calf pain and mobility deficits. Equipment Issued: Rollator, educated on parts management, device safety, and mobility techniques. Problems: complicating co-morbidities decreased independence with functional mobility decreased endurance compromised balance decreased tolerance to activity compromised safety with mobility Goals (short term, 5-7 visits): 1. Pt will transfer from sit <> stand modified independently with least restricitve device. Met. 2. Pt will ambulate 50 ft modified independently with least restrictive device. Met. - Patient will ambulate 150 ft modified independent with rollator. 3. Pt will negotiate a flight of stairs with handrail modified independent with least restricitive device in order to safely navigate home environment. Goal ongoing. <*><*><*> GG MOBILITY ASSESSMENT ITEMS <*><*><*> --- --- --- --- --- --- --- --- --- --- --- --- --- --- --- <> SECTION A THROUGH G: ADMISSION GOAL DISCHARGE A. ROLL LEFT AND RIGHT....: [] [] [] B. SIT TO LYING...........: [4] [6] [] C. LYING TO SITTING ON SIDE OF BED............: [4] [6] [] D. SIT TO STAND...........: [3] [6] [] E. CHAIR/[id number] TRANSFER...............: [] [] [] F. TOILET TRANSFER........: [] [] [] G. CAR TRANSFER...........: [] [] [] --- --- --- --- --- --- --- --- --- --- --- --- --- --- --- <> SECTION I THROUGH O ONLY IF THE Pt. IS WALKING: ADMISSION GOAL DISCHARGE I. WALK 10 FEET...........: [3] [6] [] J. WALK 50 FEET W. 2 TURNS: [88] 6] [] K. WALK 150 FEET*.........: [88] [6] [] L. WALKING 10 FEET ON UNEVEN SURFACE.........: [] [] [] M. 1 STEP (CURB)*.........: [88] [6] [] N. 4 STEPS*...............: [88] [6] [] O. 12 STEPS*..............: [88] [6] [] P. PICKING UP OBJECT*.....: [] [] [] [...] to fully recover with no residual deficits. PLAN: Pt will be seen 3-5x per week during acute hospitalization for the following activities: [x]Gait training with/without device [x]Balance activities [x]Endurance activities []Wheelchair mobility training [x]LE strengthening [x]Transfer training [x]Stair training [x]Pt/family education Pt presented with the following number of [...] was: [] Low, [x] Moderate, [] High If this is the last PT intervention then this documentation serves at the discharge Note as well. /tamera/ SY DOUGLASS PHYSICAL THERAPY STUDENT Signed: 2024 10:47 /tamera/ CHAPARRITA MALIK PHYSICAL THERAPIST Cosigned: 2024 10:49 2024 ADDENDUM STATUS: COMPLETED The patient was seen for the diagnosis of left side sciatica pain. The patient was assessed, and the treatment was provided under the appropriate level of supervision from the primary Physical Therapist (PT) for the following activities this session: gait training and device education. The clinical decision-making process for the treatment provided; patient response to treatment; therapist assessment of the response to treatment; and plan of care documented in this note have been formulated and approved by the primary PT. Encounter data entry assistant was approved by the primary PT and is accurate for the services provided. /tamera/ CHAPARRITA MALIK PHYSICAL THERAPIST Signed: 2024 10:49 SY DOUGLASS [facility]
--- OUTSIDE RECORDS SUMMARY | 2025-03-22 22:01 | XMS_ITS | Encounter Summary ---
Author Name [facility] [place] [facility] [place] [facility] [place] [facility] [place] Address [address] [place] [address] Care Team Providers Care Quality Facilitator Name Role Phone VERNA BARRERA Primary Care [...] AID (WNR) Oct 23, 2016 MEDICAI D [id number] GERDA NUNES PATIENT Selected Encounter This section includes the information on record at [place] for the Encounter. Date/Time Encounter Type Encounter Description Reason Provider Source Nov 26, 2024 12:30 PM OFFICE O/P NEW LOW 30 MIN ORTHO/JOINT SURG ICD-10-CM M25.552 Pain in left hip RAUL AUGUSTIN Encounter Template Text not used by [place] Assessments - Encounter Diagnoses This section includes the primary and secondary diagnoses documented for the Encounter. Date/Time Primary/Secondary Diagnosis Diagnosis Name Provider Source Dec 23, 2024 07:49 AM PRIMARY Pain in left hip GALDINO FONTANA [facility] Dec 23, 2024 07:49 AM SECONDARY Pain in left lower leg GALDINO FONTANA [facility] Plan of Treatment: Future Appointments (+ 6 months) and Future Tests (+/- 45 days) The Plan of Treatment section includes future care activities for the patient [facility] [place] [facility] This section includes future appointments and future orders which are active, pending or scheduled. Future Appointments This section includes appointments that were scheduled to occur 6 months from the date of the Encounter, up to a maximum of 20 appointments. The data comes from all [facility]. Appointment Date/Time Appointment Type Appointme nt Facility Name Dec 17, 2024 06:28 PM AMBULATORY - MEDICINE [facility] Jan 02, 2025 01:00 PM AMBULATORY - PSYCHIATRY [facility] Jan 07, 2025 11:30 AM AMBULATORY MEDICINE [facility] Apr 18, 2025 02:30 PM AMBULATORY PSYCHIATRY [facility] Active, Pending, and Scheduled Orders This section includes a listing of several types of active, pending, and scheduled orders, including clinic medications orders, diagnostic test orders, procedure orders and consult orders; where the start date of the order is 45 days before the date of the Encounter or 45 days after the date of theEncounter. The data comes from all [facility]. Test Date/Time Test Type Test Details Facility Name Nov 07, 2024 09:39 AM Laboratory - Microbiology Order BLOOD CULT (SET 1) B D BLD. BOTTLE BLOOD [facility] Nov 07, 2024 09:39 AM Laboratory - Microbiology Order BLOOD CULT (SET 2) B D BLD. BOTTLE (SET 2) BLOOD [facility] Lab Results: +/- 30 days of the encounter This section includes the Chemistry and Hematology Lab Results on record with [place] for the patient. Radiology Reports and Pathology Reports are provided separately, in subsequent sections. Lab Results This section contains the Chemistry/Hematology Results that were resulted 30 days before or 30 daysafter the date of the Encounter. Date/Time Source Result Type Result - Unit Interpretation Reference Range Specimen Type Comment Dec 17, 2024 07:11 PM [facility] TROPONIN I PLASMA Specimen Type: PLASMA Comment: No hemolysis noted. Ordering Provider: Jones HOUGH Report Released Date/Time: Dec 17, 2024 06:44 PM Reporting Lab: [address] [address] Performing Lab: [address] [address] TROPONIN I <0.010 ng/mL 0-0.033 Dec 17, 2024 07:11 PM [facility] COMPREHENSIVE METABOLIC PANEL PLASMA Specimen Type: PLASMA Comment: No hemolysis noted. Ordering Provider: VICTOR M HOUGH Report Released Date/Time: Dec 17, 2024 06:44 PM Reporting Lab: [address] [address] Performing Lab: [address] [address] CREATININE 0.89 mg/dL 0.6-1.1 UREA NITROGEN 17.8 [...] 79.9 >60 Dec 17, 2024 07:11 PM [facility] CBC BLOOD Specimen Type: BLOOD No comment entered. Ordering Provider: VICTOR M HOUGH Report Released Date/Time: Dec 17, 2024 06:44 PM Reporting Lab: [address] [address] Performing Lab: [address] [address] WBC 7.5 10*3/uL 3.6-11.2 RBC 4.79 10*6/uL [...] 0.60 BASOPHILS, ABSOLUTE 0.08 10*3/uL 0.00-0. 20 Nov 08, 2024 05:42 AM [facility] RENAL PANEL PLASMA Specimen Type: PLASM A Comment: No hemolysis noted. Ordering Provider: SIMI WALTERS Report Released Date/Time: Nov 07, 2024 11:32 PM Reporting Lab: [place] [id number] [facility] [address] Performing Lab: [address] [address] CREATININE 0.79 mg/dL 0.6-1.1 UREA NITROGEN 21.2 mg/dL 9.0-25.0 GLUCOSE 87 mg/dL 72-99 SODIUM 142 meq/L 136-145 POTASSIUM 3.9 meq/L 3.5-5 CHLORIDE 106 meq/L 98-107 CARBON DIOXIDE 27 meq/L 22-31 CALCIUM 9.4 mg/dL 8.4-10.4 PHOSPHOROUS 4.9 mg/dL H 2.3-4.7 ALBUMIN 3.6 g/dL 3.4-5 EGFR (CKD-EPI 2020) 92.2 >60 Nov 08, 2024 05:42 AM [facility] MAGNESIUM PLASMA Specimen Type: PLASM A Comment: No hemolysis noted. Ordering Provider: SIMI WALTERS Report Released Date/Time: Nov 07, 2024 11:32 PM Reporting Lab: [address] [address] Performing Lab: [address] [address] MAGNESIUM 2.0 mg/dL 1.6-2.6 Nov 08, 2024 05:42 AM [facility] CBC BLOOD Specimen Type: BLOOD No comment entered. Ordering Provider: SIMI WALTERS Report Released Date/Time: Nov 07, 2024 11:32 PM Reporting Lab: [address] [address] Performing Lab: [address] [address] WBC 6.3 10*3/uL 3.6-11.2 RBC 4.40 10*6/uL [...] 0.00-0. 20 Nov 08, 2024 05:00 AM [facility] MRSA SURVL NARES DNA NARES Specimen [...] Nov 07, 2024 11:32 PM Reporting Lab: [facility] [address] [facility] [address] Performing Lab: [address] [address] MRSA SURVL NARES DNA Negative Negative Nov 07, 2024 12:35 PM [facility] URINE DRUG SCREEN (STL) URINE Specimen Type: URINE Comment: The cut-off value for Fentanyl was laboratory developed and its performance characteristics confirmed by the [facility] laboratory thru method comparison with reference laboratory and medication chart review. The laboratory is regulated under CLIA as qualified to perform high-complexity testing. Fentanyl is used for clinical purposes in conjunction with other laboratory tests. Ordering Provider: SUKHDEEP HENRY Report Released Date/Time: Nov 07, 2024 09:39 AM Reporting Lab: [facility] [address] [facility] [address] Performing Lab: [address] [address] ETHANOL <10 mg/dL 0-9 AMPHET/METHAMPHETAMINE Negative ng/mL COCAINE METABOLITES Negative ng/mL BENZODIAZEPINES (STL) POSITIVE ng/mL CANNABINOIDS Negative ng/mL METHADONE Negative ng/mL OPIATES Negative ng/mL CREATININE URINE/OTHERS 107.3 mg/dL 47-1 10 OXYCODONE (FXAPE-HBV-SE) Negative ng/mL BUPRENORPHINE (STL-PB-MA) Negative ng/mL FENTANYL (STL) Negative ng/mL Nov 07, 2024 12:35 PM [facility] URINALYSIS (STL-PB) URINE Specimen Type: URIN E No comment entered. Ordering Provider: SUKHDEEP HENRY Report Released Date/Time: Nov 07, 2024 09:40 AM Reporting Lab: [facility] [address] [address] Performing Lab: [facility] [address] [facility] [address] URINE COLOR Yellow Yellow U.BILIRUBIN Negative mg/dL [...] GRAVITY 1.023 Nov 07, 2024 11:22 AM [facility] SEROTONIN SERUM Specimen Type: SERUM Comment: This test was developed and its analytical performance characteristics have been determined by [employer]. It has not been cleared or approved by FDA. This assay has been validated pursuant to the CLIA regulations and is used for clinical purposes. Test performed by [employer] [place] [id number] Test Carrier: Lois Valenzuela MD,PHD,JESSICA Test Reported by [facility], [employer] [facility], [address] [place] [address] Remi Dos Santos M.D., Ph.D., Director of Laboratories , CLIA [id number] This test was developed and its analytical performance characteristics have been determined by [employer]. It has not been cleared or approved by FDA. This assay has been validated pursuant to the CLIA regulations and is used for clinical purposes. Test performed by [employer] [place] [id number] Test Carrier: Lois Valenzuela MD,PHD,JESSICA Test Reported by [facility], [facility] [employer] [facility], [address] [place], [place] Remi Dos Santos M.D., Ph.D., Director of Laboratories , CLIA [id number] Ordering Provider: SUKHDEEP HENRY Report Released Date/Time: Nov 07, 2024 10:04 AM Reporting Lab: [facility] [address] [facility] [address] Performing Lab: [facility] [address] [facility] SEROTONIN 16 ng/mL L 56-244 Nov 07, 2024 11:22 AM [facility] TSH (MA-PB) SERUM Specimen Type: SERUM No comment entered. Ordering Provider: SUKHDEEP HENRY Report Released Date/Time: Nov 07, 2024 09:56 AM Reporting Lab: [place] [address] [facility] [address] Performing Lab: [address] [address] TSH 3.321 u[IU]/mL 0.47-5 Nov 07, 2024 09:57 AM [facility] COMPREHENSIVE METABOLIC PANEL PLASMA Specimen Type: PLASMA Comment: No hemolysis noted. Ordering Provider: MANNY GORDON Report Released Date/Time: Nov 07, 2024 09:15 AM Reporting Lab: [address] [address] Performing Lab: [address] [address] CREATININE 0.84 mg/dL 0.6-1.1 UREA NITROGEN 20.2 [...] 85.7 >60 Nov 07, 2024 09:57 AM [facility] CBC BLOOD Specimen Type: BLOOD No comment entered. Ordering Provider: MANNY GORDON Report Released Date/Time: Nov 07, 2024 09:14 AM Reporting Lab: [place] [address] [facility] [address] Performing Lab: [address] [address] WBC 10.4 10*3/uL 3.6-11.2 RBC 4.99 10*6/uL [...] 0.00-0. 20 Nov 07, 2024 09:49 AM [facility] LIPASE PLASMA Specimen Type: PLASM A No comment entered. Ordering Provider: SUKHDEEP HENRY Report Released Date/Time: Nov 07, 2024 09:39 AM Reporting Lab: [place] [address] [facility] [address] Performing Lab: [place] [address] [facility] [address] LIPASE 35 U/L 8-78 Nov 07, 2024 09:49 AM [facility] ETHANOL SERUM/PLASMA (STL) PLASMA Specimen Typ e: PLASMA No comment entered. Ordering Provider: SUKHDEEP HENRY Report Released Date/Time: Nov 07, 2024 09:39 AM Reporting Lab: [address] [address] Performing Lab: [address] [address] ETHANOL SERUM/PLASMA (STL) <10 mg/dL 0-9 Nov 07, 2024 09:49 AM [facility] RESPIRATORY PCR PANEL NASOPHARYNX Specimen Type: NASOPHARYNX Comment: The TeraFirrma RP Panel combines nested multiplex PCR and [...] the clinician evaluating the patient. Chasity CHOI, (044) Ordering Provider: SUKHDEEP HENRY Report Released Date/Time: Nov 07, 2024 09:39 AM Reporting Lab: [address] [address] Performing Lab: [address] [address] *Adenovirus (BF) Not Detected Not Detect ed [...] Dete cted Nov 07, 2024 09:49 AM [facility] CPK PLASMA Specimen Type: PLASM A No comment entered. Ordering Provider: SUKHDEEP HENRY Report Released Date/Time: Nov 07, 2024 09:48 AM Reporting Lab: [address] [address] Performing Lab: [address] [address] CPK 61 U/L 29-168 Vital Signs: All taken on the encounter date This section contains inpatient and outpatient Vital Signs collected on the date of the Encounter. Date/Time Temperature Pulse Blood Pressure Respiratory Rate SP02 Pain Height Weight Body Mass Index Source Nov 26, 2024 12:35 PM 97.9 86 110/68 18 98 5 62 182.2 33 [facility] Social History: Smoking Status (Most current) and Tobacco Use (All prior to encounter date) This section includes the most current, and the historical, smoking and tobacco- related health factors from the [facility] where the Encounter took place. Current Smoking Status This section includes the most current smoking, or tobacco-related health factor, from the [place] facility where the Encounter took place. Date/Time Current Smoking Status Comment Facil ity Nov 07, 2024 05:48 PM ORYX ADMIT TOBACCO SCREEN NO [facility] Tobacco Use History This section includes a history of the smoking, or tobacco-related health factors, that were collected on or before the date of the Encounter. The data comes from the [place] facility where the Encounter took place. Date/Time Smoking Status/Tobacco Use Comment F acility Jul 17, 2024 03:18 AM ORYX ADMIT TOBACCO SCREEN NO [facility] Nov 09, 2023 06:45 AM ORYX ADMIT TOBACCO SCREEN NO [facility] May 25, 2022 11:42 AM ORYX ADMIT TOBACCO SCREEN NO [facility] May 13, 2022 08:14 PM ORYX ADMIT TOBACCO SCREEN NO [facility] Apr 07, 2022 03:34 AM ORYX ADMIT TOBACCO SCREEN REFUSED [facility] Dec 20, 2021 12:44 PM ORYX ADMIT TOBACCO SCREEN NO [facility] Aug 23, 2021 08:22 PM ORYX ADMIT TOBACCO SCREEN NO [facility] Aug 12, 2021 06:24 PM ORYX ADMIT TOBACCO SCREEN NO [facility] May 12, 2008 06:16 PM LIFETIME NON-USER OF TOBACCO [facility] Jun 28, 2007 01:18 PM LIFETIME NON-USER OF TOBACCO [facility] May 03, 2006 10:56 AM LIFETIME NON-TOBACCO USER [facility] Dec 03, 2003 08:16 AM LIFETIME NON-TOBACCO USER [facility] Radiology Reports: +/- 30 days of [...] the Encounter. The data comes from all [place] treatment facilities. Date/Time Radiology Report Provider Source Nov 26, 2024 01:13 PM HIP, UNILAT, 2-3 V IEWS LEFT W OR W/O PELVIS: GERDA NUNES DEC [id number] -1975 F Exm Date: NOV 26, 2024@13:13 Req Phys: GALDINO FONTANA Pat Loc: [facility]-ORTHO 1 (Req'g Loc) Im Loc: [facility]-MAIN RADIOLOGY SUITE Service: Unknown Screen: Patient answered no [facility] [address] [place] [address] (Case [id number] COMPLETE) HIP, UNILAT, 2-3 VIEWS LEFT W OR (RAD Detailed) CPT:93671 Proc Modifiers : LEFT, AP Pelvis, Frog Reason for Study: Left hip pain Clinical History: Report Status: Verified Date Reported: NOV 28, 2024 Date Verified: NOV 28, 2024 Knotter E-Sig:/ES/ROSALINA CHANG Report: EXAMINATION: HIP, UNILAT, 2-3 [...] osteoarthritis. Primary Interpreting Staff: ROSALINA CHANG, RADIOLOGIST (Knotter) /ROSALINA CROCKER [facility] Nov 07, 2024 04:[address] HEAD W/O CONT: MANJUGERDA SERRA DEC [id number] -1975 F Exm Date: NOV 07, 2024@16:16 Req Phys: SUKHDEEP HENRY Loc: [facility]-EMERGENCY DEPT 2ND SHIFT (R Img Loc: -CT IMAGING Service: Unknown Screen: Patient answered no [facility] [address] [place] [address] (Case [id number] COMPLETE) CT HEAD W/O CONT (CT Detailed) CPT:98876 Reason for Study: headache Clinical History: Responsible [...] 07, 2024 Date Verified: NOV 07, 2024 Knotter E-Sig:/ES/Geneva Egan MD Report: CT HEAD W/O CONT CASE #: [id number] DATE:11/07/2024 4:46 PM CLINICAL HISTORY:headache COMPARISON: 12/31/2023, [...] Primary Interpreting Staff: Geneva Egan MD, Radiologist (Oscar) /GENEVA WESTFALL [facility] Nov 07, 2024 09:44 AM CHEST PORTABLE: GERDA NUNES [facility] [id number] -1975 F Exm Date: NOV 07, 2024@09:44 Req Phys: SUKHDEEP HENRY Loc: -EMERGENCY DEPT 2ND SHIFT (R Img Loc: -MAIN RADIOLOGY SUITE Service: Unknown Screen: Patient answered no [facility] [address] [place] [address] (Case [id number] COMPLETE) CHEST PORTABLE (RAD Detailed) CPT:25906 Proc Modifiers : Portable Reason for Study: , cough Clinical History: Cough and fever Report Status: Verified Date Reported: NOV 07, 2024 Date Verified: NOV 07, 2024 Knotter E-Sig:/ES/SYED MCGINNIS MD Report: Case #[id number]. Chest [...] SYED MCGINNIS MD, Staff Physician - Radiologist (Knotter) /SYED HOWARD [facility] Pathology Reports: +/- 30 days [...] the Encounter. The data comes from all [place] treatment facilities. Date/Time Pathology Report Provider Source Nov 07, 2024 12:35 PM LR MICROBIOLOGY RE PORT: Accession [UID]: [id number] [[id number]] Received: Nov 07, 2024@15:52 Collection sample: URINE,CLEAN CATCH Collection date: Nov 07, 2024 12:35 Site/Specimen: URINE Provider: SUKHDEEP HENRY Test(s) ordered: C&S URINE..................... completed: Nov 08, 2024 22:06 * BACTERIOLOGY FINAL REPORT => Nov 08, 2024 22:08 TECH CODE: [id number] Bacteriology Remark(s): CULTURE SHOWS <10,000 CFU/ML NATURE OF GROWTH SUGGESTS CONTAMINATION OR DELAY IN TRANSPORT. There will be no work up. AJK 11/08/24 =--=--=--=--=--=--=--=--=--= --=--=--=--=--=--=--=--=--=- -=--=--=--=--=--=--=-- Performing Laboratory: Bacteriology Report Performed By: [facility] [address] [place] [address] CLIA# [id number] [address] [facility] [address] [place] [address] [facility] Encounter Notes: All associated encounter notes This section contains the clinical notes associated to the Encounter. Date/Time Encounter Note(s) Provider Source Nov 26, 2024 03:13 PM ORTHOPEDIC SURGERY CONSULT: LOCAL TITLE: ORTHOPEDIC CONSULT STL STANDARD TITLE: ORTHOPEDIC SURGERY CONSULT DATE OF NOTE: NOV 26, 2024@15:13 ENTRY DATE: NOV 26, 2024@15:13:15 AUTHOR: GALDINO FONTANA COSIGNER: RAUL AUGUSTIN URGENCY: STATUS: COMPLETED ORTHOPEDIC CONSULT STL Has ADDENDA CC: Left hip pain, left leg pain HPI: Patient is a 49-year-old female with a past medical history significant for a left lower extremity injury resulting in fasciotomies performed in the and then repeat fasciotomies performed in the , who is presenting today with chief complaints of left hip pain and left leg pain. With respect to the patient's left leg pain, patient states that she has had the pain chronically for decades. She has been seen for this pain by her primary care physician and pain management physician. She has been referred for physical therapy which she has found to not help. Patient states that she has a foot drop on that side but is able to ambulate without any assistive devices. She states that she will occasionally note color changes in the foot that are associated with paresthesias and severe pain in the anterolateral aspect of her calf. She states that over the past years the pain has been getting worse and that nobody has been able to find a solution for it. She was recently placed on a pain contract with her primary care physician for a narcotic pain medication. She is planning to reestablish care with a pain management doctor soon. With respect to her left hip, patient states that she has been having severe left hip pain for the last year. Patient states that the pain is worse with activity, and better with rest. She states that it is tender to the touch. The pain began insidiously and was not associated with any traumatic insult. Patient denies fevers, chills, nausea, vomiting. Patient denies any recent trauma. PMH: 1) Family history of ischemic heart disease (SNOMED CT [id number]) 2) Migraine (SNOMED CT 40437236) 3) Vitamin D deficiency 4) Hypothyroidism 5) Low back pain 6) Depression 7) Mastodynia 8) Lumbar radiculopathy 9) Irritable bowel syndrome characterized by alternating bowel habit 10) Fibromyalgia 11) Chronic pain in female pelvis 12) Kidney stone 13) Insomnia 14) Compartment syndrome 15) Obesity ([facility] [id number]) 16) Arthritis 17) Intermittent palpitations 18) Chronic obstructive lung disease 19) Obstructive sleep apnea of adult 20) Poor pelvic muscle tone 21) Cervicalgia 22) Bacterial cellulitis 23) Overactive bladder 24) Iron deficiency Active Outpatient Medications (including Supplies): Active Outpatient Medications Status = 1) CODEINE 30/ACETAMINOPHEN 300MG TAB TAKE 1 [...] NEEDED Indication: FOR PAIN 6) LEVOTHYROXINE NA 175MCG TAB TAKE ONE TABLET BY MOUTH EVERY ACTIVE MORNING BEFORE A MEAL TAKE 30 MINUTES BEFORE FOOD. TAKE SEPARATELY FROM ALL OTHER MEDICATIONS. Indication: FOR HYPOTHYROIDISM 7) NALOXONE HCL 4MG/SPRAY SOLN NASAL SPRAY [...] AT BEDTIME ACTIVE NEEDED Indication: FOR INSOMNIA Allergies: VITAMIN B12 1000MCG, PANTOPRAZOLE, AMOXICILLIN, FLONASE NASAL SOLUTION PREGABALIN, METHOCARBAMOL SH: Tob: Denies EtOH: Denies Drugs: none FH: non-contributory PE: NAD, A&Ox3 LLE: SILT SP/DP/T EHL/TA/GSC intact, with 5/5 strength DP/PT 2+ Nontender to palpation throughout the foot and leg and knee Tender to palpation over the greater trochanter Negative FADIR negative Brenton No pain with logroll of left hip 0 to 110 degrees left hip range of motion WBC 6.3 10*3/uL 11/08/2024 06:00 RBC 4.40 [...] 06:00 BASOPHILS, ABSOLUTE 0.06 10*3/uL 11/08/2024 06:00 SODIUM 142 mEq/L 11/08/2024 06:00 POTASSIUM 3.9 mEq/L 11/08/2024 06:00 CHLORIDE 106 mEq/L 11/08/2024 06:00 UREA NITROGEN 21.2 mg/dL 11/08/2024 06:00 CREATININE 0.79 mg/dL 11/08/2024 06:00 CALCIUM 9.4 mg/dL 11/08/2024 06:00 CARBON DIOXIDE 27 mEq/L 11/08/2024 06:00 GLUCOSE 87 mg/dL 11/08/2024 06:00 EGFR (CKD-EPI 2020) 92.2 11/08/2024 06:00 INR: INR VALUE 1.0 INR 11/19/2023 19:20 PROTIME 11.4 sec 11/19/2023 19:20 11.4 sec (11/19/23 19:20) PTT: No PTT EO data found Radiographs: Radiographs of the pelvis, left hip, and left tib-fib demonstrate no acute osseous abnormality. There are minimal to no degenerative changes noted in the left hip joint. A/P: Patient is a 49-year-old female presenting with a chief complaint of chronic left leg pain secondary to her prior fasciotomies on the extremity, and a second complaint of left hip pain, likely secondary to trochanteric bursitis. Discussed with patient that there is no surgical intervention that will help her pain in the left leg/foot. For someone that has had 2 fasciotomies on her left leg, she actually has quite good left foot and left lower extremity function. Recommended that she continue to follow with her primary care doctor and pain management doctor for her chronic left lower extremity pain in the leg. With respect to the patient's left hip pain, suspect this is secondary to trochanteric bursitis. Discussed with the patient that we will plan to pursue a course of physical therapy for her trochanteric bursitis. Discussed with patient that this is a different course of physical therapy than the pain therapy that she has been going to for her leg. The therapy will consist primarily of hip abductor strengthening. We will plan to see the patient back in approximately 3 months for repeat clinical evaluation of how her left hip pain has responded to physical therapy. /es/ GALDINO FONTANA MD, [facility] RESIDENT PHYSICIAN, ORTHOPAEDIC SURGERY Signed: 11/26/2024 15:24 /tamera/ RAUL AUGUSTIN MD Staff Physician, Orthopedics Cosigned: 11/27/2024 13:29 12/06/2024 ADDENDUM STATUS: COMPLETED I spoke to Ms. Nunes and explained the diagnosis of trochanteric bursitis. She would like to proceed with an injection in clinic and then is agreeable to PT to help with long-term improvement through IT band stretching/massage and abductor strengthening. She was agreeable to this plan. /tamera/ RAUL AUGUSTIN MD Staff Physician, Orthopedics Signed: 12/06/2024 14:11 GALDINO FONTANA [facility]
--- OUTSIDE RECORDS SUMMARY | 2025-03-22 22:01 | XMS_ITS ---
Author Name [facility] Organization [facility] Address [address] [place] [address] Care Team Providers Care Human Resources Trainee Name Role Phone VERNA BARRERA Primary Care [...] AID (WNR) Oct 23, 2016 MEDICAI D [id number] [phone] GERDA NUNES PATIENT Selected Encounter This section includes the information on record at [place] for the Encounter. Date/Time Encounter Type Encounter Description Reason Provider Source May 08, 2024 03:55 PM Outpatient Encounter GENERAL INTERNAL MEDICINE MARTY BAILEY Encounter Template Text not used by [place] Plan of Treatment: Future Appointments (+ 6 months) and Future Tests (+/- 45 days) The Plan of Treatment section includes future care activities for the patient from all [place] treatmentfacilities. This section includes future appointments and future orders which are active, pending or scheduled. Future Appointments This section includes appointments that were scheduled to occur 6 months from the date of the Encounter, up to a maximum of 20 appointments. The data comes from all [place] treatment facilities. Appointment Date/Time Appointment Type Appointme nt Facility Name May 21, 2024 11:00 AM AMBULATORY - MEDICINE [facility] May 22, 2024 02:00 PM AMBULATORY - PSYCHIATRY [facility] Jun 07, 2024 07:44 AM AMBULATORY - MEDICINE [facility] Jun 27, 2024 07:15 PM AMBULATORY - NONE [facility] Jul 08, 2024 08:44 PM AMBULATORY - MEDICINE [facility] Jul 09, 2024 08:30 AM AMBULATORY - MEDICINE [facility] Jul 16, 2024 11:43 AM AMBULATORY - MEDICINE [facility] Jul 22, 2024 10:00 AM AMBULATORY - MEDICINE [facility] Oct 22, 2024 11:30 AM AMBULATORY - MEDICINE [facility] Nov 07, 2024 08:41 AM AMBULATORY - MEDICINE [facility] Lab Results: +/- 30 days of [...] Type Comment Jun 07, 2024 08:48 AM [facility] COVID-19 DIAGNOSTIC (FLU/RSV)(STL) NASOPHARYNX Spec imen Type: [...] Jun 07, 2024 08:20 AM Reporting Lab: [address] [address] Performing Lab: [facility] [address] [place] [phone] INFLUENZA A Negative Negative INFLUENZA B Negative Negative COVID-19 (STL-PB) Not Detected Not Detec ilana RSV (Cepheid) NEGATIVE Negative Jun 07, 2024 08:38 AM [facility] TSH W/ REFLEX FT4 (STL) PLASMA Specimen Type: PLASMA No comment entered. Ordering Provider: VERNA BARRERA Report Released Date/Time: Jun 04, 2024 12:23 PM Reporting Lab: [place] [address] Performing Lab: [place] [address] TSH 15.172 u[IU]/mL H 0.47-5 FREE T4(REFLEX) 0.74 ng/mL 0.7-1.48 Jun 07, 2024 08:38 AM [facility] HGA1C BLOOD Specimen Type: BLOOD No comment entered. Ordering Provider: VERNA BARRERA Report Released Date/Time: Jun 04, 2024 12:23 PM Reporting Lab: [address] [address] Performing Lab: [place] [phone] HGA1C 5.7 4.0-6.0 Jun 07, 2024 08:38 AM [facility] HEPATIC FUNTION PANEL (STL) PLASMA Specimen T ype: PLASMA No comment entered. Ordering Provider: VERNA BARRERA Report Released Date/Time: Jun 04, 2024 12:23 PM Reporting Lab: [address] [address] Performing Lab: [address] [address] PROTEIN 7.1 g/dL 6-8.6 ALBUMIN 4.1 g/dL 3.4-5 TOTAL BILIRUBIN 0.4 mg/dL 0.2-1.2 ALKALINE PHOSPHATASE 80 U/L 40-150 AST/SGOT 18 U/L 5-34 ALT/SGPT 11 U/L 8-40 CONJ. BILIRUBIN 0.2 mg/dL 0-0.5 Jun 07, 2024 08:37 AM [facility] BASIC METABOLIC PANEL PLASMA Specimen Type: PL ASMA Comment: No hemolysis noted. Ordering Provider: VERNA BARRERA Report Released Date/Time: May 29, 2024 09:43 AM Reporting Lab: [facility] [address] [place] [phone] Performing Lab: [address] [address] CREATININE 0.85 mg/dL 0.6-1.1 UREA NITROGEN 17.3 mg/dL 9.0-25.0 GLUCOSE 99 mg/dL 72-99 SODIUM 139 meq/L 136-145 POTASSIUM 4.2 meq/L 3.5-5 CHLORIDE 106 meq/L 98-107 CARBON DIOXIDE 27 meq/L 22-31 CALCIUM 9.7 mg/dL 8.4-10.4 EGFR (CKD-EPI 2020) 85.0 >60 Jun 07, 2024 08:37 AM [facility] CBC BLOOD Specimen Type: BLOOD No comment entered. Ordering Provider: VERNA BARRERA Report Released Date/Time: May 29, 2024 09:43 AM Reporting Lab: [address] [address] Performing Lab: [address] [address] WBC 6.1 10*3/uL 3.6-11.2 RBC 4.49 10*6/uL [...] and tobacco- related health factors from the NE facility where the Encounter took place. Current Smoking Status This section includes the most current smoking, or tobacco-related health factor, from the NE facility where the Encounter took place. Date/Time Current Smoking Status Comment Jessica ity Nov 09, 2023 06:45 AM ORYX ADMIT TOBACCO SCREEN NO [facility] Tobacco Use History This section includes a history of the smoking, or tobacco-related health factors, that were collected on or before the date of the Encounter. The data comes from the NE facility where the Encounter took place. Date/Time Smoking Status/Tobacco Use Comment F acility May 25, 2022 11:42 AM ORYX ADMIT TOBACCO SCREEN NO [facility] May 13, 2022 08:14 PM ORYX ADMIT TOBACCO SCREEN NO [facility] Apr 07, 2022 03:34 AM ORYX ADMIT TOBACCO SCREEN REFUSED [facility] Dec 20, 2021 12:44 PM ORYX ADMIT TOBACCO SCREEN NO [facility] Aug 23, 2021 08:22 PM ORYX ADMIT TOBACCO SCREEN NO [facility] Aug 12, 2021 06:24 PM ORYX ADMIT TOBACCO SCREEN NO [facility] May 12, 2008 06:16 PM LIFETIME NON-USER OF TOBACCO [facility] Jun 28, 2007 01:18 PM LIFETIME NON-USER OF TOBACCO [facility] May 03, 2006 10:56 AM LIFETIME NON-TOBACCO USER [facility] Dec 03, 2003 08:16 AM LIFETIME NON-TOBACCO USER [facility] Radiology Reports: +/- 30 days of [...] the Encounter. The data comes from all [place] treatment facilities. Date/Time Radiology Report Provider Source May 07, 2024 08:11 AM [place] HEPATOBILIARY - P: GERDA NUNES DEC [id number] -1975 F Exm Date: MAY 07, 2024@08:11 Req Phys: VERNA BARRERA Loc: [facility] PACT 6 PCP (Req' Img Loc: -NUCLEAR MEDICINE Service: Unknown Screen: Patient answered no [facility], [address] [place] [address] (Case [id number] COMPLETE) HEPATOBILIARY SYSTEM IMAGING (NM Detailed) CPT:95519 Reason for Study: RUQ pain , GB [...] 07, 2024 Date Verified: MAY 07, 2024 Hat Brim Curler E-Sig:/ES/VANCE MCKEON M.D. Report: PATIENT NAME: GERDA NUNES. CASE #: [id number], [id number], [id number], [id number]. EXAMINATION: Radionuclide Hepatobiliary Scan with CCK Stimulation. [...] code: 1000 Dictated by Jessika Mauricio MD (residential framing carpenter ). I, Vance Mckeon, have reviewed the images and report and concur with these findings. Primary Interpreting Staff: VANCE MCKEON M.D., STAFF PHYSICIAN - DIAGNOSTIC IMAGING (Hat Brim Curler) Primary Interpreting Resident: JESSIKA MAURICIO, Resident Physician /VANCE COOK [facility] May 07, 2024 07:45 AM US ABDOMEN LIMITED W/BLOOD FLOW DOPPLER: GERDA NUNES [facility] [id number] -1975 F Exm Date: MAY 07, 2024@07:45 Req Phys: BARRERA,VERNA A Pat Loc: [facility] PACT 6 PCP (Req' Img Loc: BIN-ULTRASOUND BIN Service: Unknown Screen: Patient answered no [facility], [address] [place] [address] (Case [id number] COMPLETE) US ABDOMEN LTD, SINGLE ORG OR WILMER(US Detailed) CPT:44438 Reason for Study: RUQ pain (Case [id number] COMPLETE) US BLOOD FLOW ABD/RENAL (LTD) (US Detailed) CPT:42653 Clinical History: Organ to Image: Gallbladder Reason for exam: CHRONIC RuQ PAIN. ct abd normal GB. has RUQ US in the past with normal GB findings. r/o chronic cholecystitis. this RUQ US is required within 7 days of HIDA scan. Report Status: Verified Date Reported: MAY 07, 2024 Date Verified: MAY 07, 2024 Hat Brim Curler E-Sig:/ES/INDIO SHARMA Report: Case [id number], [id number]. US ABDOMEN LTD, SINGLE ORG OR QUADRANT, [...] Primary Interpreting Staff: INDIO SHARMA, Diagnostic Radiologist (Hat Brim Curler) Primary Interpreting Resident: LYDIA PENNINGTON, Resident Physician /INDIO [facility] Apr 18, 2024 10:53 AM SPINE SI JOINTS 3 OR MORE VIEWS: GERDA NUNES [facility] [id number] -1975 F Exm Date: APR 18, 2024@10:53 Req Phys: GEOFF AL Pat Loc: [facility]-PAIN MGMT TEAM P3 (Req'g Lo Img Loc: [facility] Service: Unknown Screen: Patient answered no [facility], [address] [place] [address] (Case [id number] COMPLETE) SPINE SI JOINTS 3 OR MORE VIEWS (RAD Detailed) CPT:53385 Reason for Study: L.. SI pain Clinical History: Report Status: Verified Date Reported: APR 18, 2024 Date Verified: APR 18, 2024 Hat Brim Curler E-Sig:/ES/BRANDY BELLE Report: INDICATION: L.. SI pain COMPARISON: 02/21/2018 TECHNIQUE: Sacroiliac joints 3 views Impression: Significant changes from prior exam. No abnormal bony erosions. No abnormal sclerosis. No ankylosis. Primary Interpreting Staff: BRANDY BELLE, RADIOLOGIST (Hat Brim Curler) /BRANDY DOE [facility] Apr 18, 2024 08:02 AM SPINE LUMBOSACRAL 2 OR 3 VIEWS: GERDA NUNES [facility] [id number] -1975 F Exm Date: APR 18, 2024@08:02 Req Phys: VERNA BARRERA Pat Loc: -[facility] PACT PHONE YANNA 3 (Re Img Loc: [facility] Service: Unknown Screen: Patient answered no [facility] [place] [address] (Case [id number] COMPLETE) SPINE LUMBOSACRAL 2 OR 3 VIEWS (RAD Detailed) CPT:51035 Reason for Study: back pain Clinical History: Report Status: Verified Date Reported: APR 18, 2024 Date Verified: APR 18, 2024 Hat Brim Curler E-Sig:/ES/BRANDY BELLE Report: INDICATION: back pain COMPARISON: 02/20/2019 TECHNIQUE: Lumbar spine 3 views Impression: 5 nonrib-bearing bearing vertebral bodies. Lowest fully formed intervertebral disc space is designated as L5-S1. Normal vertebral body heights and intervertebral disc spaces. Primary Interpreting Staff: BRANDY BELLE, RADIOLOGIST (Hat Brim Curler) /BRANDY DOE [facility] Apr 18, 2024 08:02 AM SPINE THORACIC AP& LAT&SWIM VIEWS: GERDA NUNES DEC [id number] -1975 F Exm Date: APR 18, 2024@08:02 Req Phys: BARRERA,VERNA A Pat Loc: [facility] CLR PACT PHONE YANNA 3 (Re Img Loc: [facility] Service: Unknown Screen: Patient answered no [facility], [address] [place] [address] (Case [id number] COMPLETE) SPINE THORACIC AP&LAT&SWIM VIEWS (RAD Detailed) CPT:91899 Reason for Study: back pain Clinical History: Report Status: Verified Date Reported: APR 19, 2024 Date Verified: APR 19, 2024 Hat Brim Curler E-Sig:/ES/SIMI KENYON MD Report: AP and lateral views. No fracture or malalignment. Pedicles and spinous processes are normal. Scattered osteophytes and mild disc space narrowing in the mid and lower thoracic spine. Impression: Mild thoracic spondylosis Primary Interpreting Staff: SIMI KENYON MD, Radiologist (Hat Brim Curler) /SIMI PACKER [facility] Encounter Notes: All associated encounter notes This section contains the clinical notes associated to the Encounter. Date/Time Encounter Note(s) Provider Source May 02, 2024 03:55 PM NONVA NOTE: LOCAL TITLE: COMMUNITY CARE-REBECCA SELF PRESENTING CARE COORD PLAN STANDARD TITLE: NONVA NOTE DATE OF NOTE: MAY 02, 2024@15:55 ENTRY DATE: MAY 08, 2024@15:55:29 AUTHOR: MARTY BAILEY COSIGNER: URGENCY: STATUS: COMPLETED COMMUNITY CARE-REBECCA SELF PRESENTING CARE COORD PLAN [address] ADDENDA Emergency Notification Intake Date Presenting to the Facility: Apr Method of Contact: Notified from [facility] worklist Notification ID: [id number] [facility] Referral #: [id number] Pending Sale To [facility] Name: Hospital: [place] Address: [address] [place] [address] [address] City: [place] [address] Community Facility Point of Contact: Name: Phone: Chief complaint: back painHyperventilation syndrome, Chronic back pain Primary Diagnosis: Disposition Admitted Route of Admission: ER Date of Admission: Apr Admitting Diagnosis: Acute respiratory alkalosis Community Care Provider: Confirm Level of Care: Acute respiratory alkalosis HV (hyperventilation) Intractable back pain Alerting PCP team to this note for continuity of care Records R/T to this EOC may be found in JLV/ also sent to [facility] for scanning /tamera/ MARTY DENTON, RN REGISTERED NURSE Signed: 05/08/2024 16:02 Receipt Acknowledged By: 05/29/2024 13:09 /tamera/ VERNA BARRERA MD 05/08/2024 ADDENDUM STATUS: COMPLETED Discharge Disposition Date of discharge: Apr Disposition Discharge to home Additional Instructions Patient to follow up with her primary care provider as soon as possible, patient is instructed if any symptoms redevelop to go to nearest ER. /tamera/ MARTY DENTON, RN REGISTERED NURSE Signed: 05/08/2024 16:03 MARTY BAILEY [facility]
--- OUTSIDE RECORDS SUMMARY | 2025-03-22 22:01 | XMS_ITS ---
[facility] HOSPITALIZATION [facility] Encounter Summary Created on: March 22, 2025 GIOVANNI NUNES : 1975 Sex: Female Author Name [facility] [place] [facility] [place] [facility] [place] [facility] [place] Address [address] [place] [address] Care Team Providers Care Dry Mixer Name Role Phone VERNA BARRERA Primary Care [...] AID (WNR) Oct 23, 2016 MEDICAI D [id number] [phone] GERDA NUNES PATIENT Selected Encounter This section includes the information on record at [place] for the Encounter. Date/Time Encounter Type Encounter Description Reason Pro vider Source Nov 07, 2024 11:29 PM Inpatient Visit HOSPITALIZATION ICD-10-CM G47.00 Insomnia, unspecified TWOA,MED IHE Encounter Template Text not used by [place] Assessments - Encounter Diagnoses This section includes the primary and secondary diagnoses documented for the Encounter. Date/Time Primary/Secondary Diagnosis Diagnosis Name Provider Source Nov 08, 2024 02:10 PM Diagnosis for Length of Stay Serotonin syndrome [facility] Nov 08, 2024 02:10 PM SECONDARY Adverse effect of tramadol, initial encounter [facility] Nov 08, 2024 02:10 PM SECONDARY Bariatric surgery status [facility] Nov 08, 2024 02:10 PM SECONDARY Body mass index [BMI] 33.0-33.9, adult [facility] Nov 08, 2024 02:10 PM SECONDARY Depression, unspecified [facility] Nov 08, 2024 02:10 PM SECONDARY Fibromyalgia [facility] Nov 08, 2024 02:10 PM SECONDARY Hypothyroidism, unspecified [facility] Nov 08, 2024 02:10 PM SECONDARY Insomnia, unspecified [facility] Nov 08, 2024 02:10 PM SECONDARY Obesity, unspecified [facility] Nov 08, 2024 02:10 PM SECONDARY Other chronic pain [facility] Nov 08, 2024 02:10 PM SECONDARY Pain in left lower leg [facility] Nov 08, 2024 02:10 PM SECONDARY Radiculopathy, lumbar region [facility] Nov 08, 2024 02:10 PM SECONDARY Tension-type headache, unspecified, not intractable [facility] Plan of Treatment: Future Appointments (+ 6 months) and Future Tests (+/- 45 days) The Plan of Treatment section includes future care activities for the patient from all [facility]. This section includes future appointments and future orders which are active, pending or scheduled. Future Appointments This section includes appointments that were scheduled to occur 6 months from the date of the Encounter, up to a maximum of 20 appointments. The data comes from all [facility]. Appointment Date/Time Appointment Type Appointme nt Facility Name Nov 12, 2024 10:30 AM AMBULATORY - MEDICINE [facility] Nov 14, 2024 09:30 AM AMBULATORY - MEDICINE [facility] Nov 26, 2024 12:30 PM AMBULATORY - SURGERY [facility] Dec 17, 2024 06:28 PM AMBULATORY - MEDICINE [facility] Jan 02, 2025 01:00 PM AMBULATORY - PSYCHIATRY [facility] Jan 07, 2025 11:30 AM AMBULATORY - MEDICINE [facility] Apr 18, 2025 02:30 PM AMBULATORY - PSYCHIATRY [facility] Active, Pending, and Scheduled Orders This section includes a listing of several types of active, pending, and scheduled orders, including clinic medications orders, diagnostic test orders, procedure orders and consult orders; where the start date of the order is 45 days before the date of the Encounter or 45 days after the date of theEncounter. The data comes from all [facility] facilities. Test Date/Time Test Type Test Details Facility Name Sep 24, 2024 03:02 PM Laboratory - Chemi stry Order TSH W/ REFLEX FT4 (STL) GREEN LI-HEP PLASMA [facility] Nov 07, 2024 09:39 AM Laboratory - Microbiology Order BLOOD CULT (SET 1) B D BLD. BOTTLE BLOOD [facility] Nov 07, 2024 09:39 AM Laboratory - Microbiology Order BLOOD CULT (SET 2) B D BLD. BOTTLE (SET 2) BLOOD [facility] Lab Results: +/- 30 days of the encounter This section includes the Chemistry and Hematology Lab Results on record with [place] for the patient. Radiology Reports and Pathology Reports are provided separately, in subsequent sections. Lab Results This section contains the Chemistry/Hematology Results that were resulted 30 days before or 30 daysafter the date of the Encounter. Date/Time Source Result Type Result - Unit Interpretation Reference Range Specimen Type Comment Nov 08, 2024 05:42 AM [facility] RENAL PANEL PLASMA Specimen Type: PLASMA Comment: No hemolysis noted. Ordering Provider: SIMI WALTERS Report Released Date/Time: Nov 07, 2024 11:32 PM Reporting Lab: [facility] [address] [facility] [address] Performing Lab: [facility] [address] [facility] [address] CREATININE 0.79 mg/dL 0.6-1.1 UREA NITROGEN 21.2 mg/dL 9.0-25.0 GLUCOSE 87 mg/dL 72-99 SODIUM 142 meq/L 136-145 POTASSIUM 3.9 meq/L 3.5-5 CHLORIDE 106 meq/L 98-107 CARBON DIOXIDE 27 meq/L 22-31 CALCIUM 9.4 mg/dL 8.4-10.4 PHOSPHOROUS 4.9 mg/dL H 2.3-4.7 ALBUMIN 3.6 g/dL 3.4-5 EGFR (CKD-EPI 2020) 92.2 >60 Nov 08, 2024 05:42 AM [facility] MAGNESIUM PLASMA Specimen Type: PLASM A Comment: No hemolysis noted. Ordering Provider: SIMI WALTERS Report Released Date/Time: Nov 07, 2024 11:32 PM Reporting Lab: [address] [address] Performing Lab: [address] [address] MAGNESIUM 2.0 mg/dL 1.6-2.6 Nov 08, 2024 05:42 AM [facility] CBC BLOOD Specimen Type: BLOOD No comment entered. Ordering Provider: SIMI WALTERS Report Released Date/Time: Nov 07, 2024 11:32 PM Reporting Lab: [place] [address] [facility] [address] Performing Lab: [address] [address] WBC 6.3 10*3/uL 3.6-11.2 RBC 4.40 10*6/uL [...] 0.00-0. 20 Nov 08, 2024 05:00 AM [facility] MRSA SURVL NARES DNA NARES [...] Nov 07, 2024 11:32 PM Reporting Lab: [address] [address] Performing Lab: [address] [address] MRSA SURVL NARES DNA Negative Negative Nov 07, 2024 12:35 PM [facility] URINE DRUG SCREEN (STL) URINE Specimen Type: URINE Comment: The cut-off value for Fentanyl was laboratory developed and its performance characteristics confirmed by the [facility] laboratory thru method comparison with reference laboratory and medication chart review. The laboratory is regulated under CLIA as qualified to perform high-complexity testing. Fentanyl is used for clinical purposes in conjunction with other laboratory tests. Ordering Provider: SUKHDEEP HENRY Report Released Date/Time: Nov 07, 2024 09:39 AM Reporting Lab: [address] [address] Performing Lab: [address] [address] ETHANOL <10 mg/dL 0-9 AMPHET/METHAMPHETAMINE Negative ng/mL COCAINE METABOLITES Negative ng/mL BENZODIAZEPINES (STL) POSITIVE ng/mL CANNABINOIDS Negative ng/mL METHADONE Negative ng/mL OPIATES Negative ng/mL CREATININE URINE/OTHERS 107.3 mg/dL 47-1 10 OXYCODONE (ETGIG-GHT-OD) Negative ng/mL BUPRENORPHINE (STL-PB-MA) Negative ng/mL FENTANYL (STL) Negative ng/mL Nov 07, 2024 12:35 PM [facility] URINALYSIS (STL-PB) URINE Specimen Type: URIN E No comment entered. Ordering Provider: SUKHDEEP HENRY Report Released Date/Time: Nov 07, 2024 09:40 AM Reporting Lab: [place] [address] [facility] [address] Performing Lab: [facility] [address] [facility] [address] [address] URINE COLOR Yellow Yellow U.BILIRUBIN Negative mg/dL [...] GRAVITY 1.023 Nov 07, 2024 11:22 AM [facility] SEROTONIN SERUM Specimen Type: SERUM Comment: This test was developed and its analytical performance characteristics have been determined by [employer]. It has not been cleared or approved by FDA. This assay has been validated pursuant to the CLIA regulations and is used for clinical purposes. Test performed by [employer] [address] [place] [address] Utility Operator Yarn: Lois Valenzuela MD,PHD,JESSICA Test Reported by [facility], [employer], [address] [place] [address] Remi Dos Santos M.D., Ph.D., Director of Laboratories , CLIA [id number] This test was developed and its analytical performance characteristics have been determined by [employer]. It has not been cleared or approved by FDA. This assay has been validated pursuant to the CLIA regulations and is used for clinical purposes. Test performed by [employer] [facility] [address] [place] [address] Utility Operator Yarn: Lois Valenzuela MD,PHD,JESSICA Test Reported by [facility], [employer] [facility], [id number] [place] [address] Remi Dos Santos M.D., Ph.D., Director of Laboratories , CLIA [id number] Ordering Provider: SUKHDEEP HNERY Report Released Date/Time: Nov 07, 2024 10:04 AM Reporting Lab: [address] [address] Performing Lab: [facility] [address] [facility] SEROTONIN 16 ng/mL L 56-244 Nov 07, 2024 11:22 AM [facility] TSH (MA-PB) SERUM Specimen Type: SERUM No comment entered. Ordering Provider: SUKHDEEP HENRY Report Released Date/Time: Nov 07, 2024 09:56 AM Reporting Lab: [address] [address] Performing Lab: [address] [address] TSH 3.321 u[IU]/mL 0.47-5 Nov 07, 2024 09:57 AM [facility] COMPREHENSIVE METABOLIC PANEL PLASMA Specimen Type: PLASMA Comment: No hemolysis noted. Ordering Provider: MANNY GORDON Report Released Date/Time: Nov 07, 2024 09:15 AM Reporting Lab: [address] [address] Performing Lab: [address] [address] CREATININE 0.84 mg/dL 0.6-1.1 UREA NITROGEN 20.2 [...] 85.7 >60 Nov 07, 2024 09:57 AM [facility] CBC BLOOD Specimen Type: BLOOD No comment entered. Ordering Provider: MANNY GORDON Report Released Date/Time: Nov 07, 2024 09:14 AM Reporting Lab: [facility] [address] [place] [address] Performing Lab: [facility] [address] [place] [address] WBC 10.4 10*3/uL 3.6-11.2 RBC 4.99 10*6/uL [...] 0.00-0. 20 Nov 07, 2024 09:49 AM [facility] LIPASE PLASMA Specimen Type: PLASM A No comment entered. Ordering Provider: SUKHDEEP HENRY Report Released Date/Time: Nov 07, 2024 09:39 AM Reporting Lab: [address] [address] Performing Lab: [address] [address] LIPASE 35 U/L 8-78 Nov 07, 2024 09:49 AM [facility] ETHANOL SERUM/PLASMA (STL) PLASMA Specimen Typ e: PLASMA No comment entered. Ordering Provider: SUKHDEEP HENRY Report Released Date/Time: Nov 07, 2024 09:39 AM Reporting Lab: [address] [address] Performing Lab: [address] [address] ETHANOL SERUM/PLASMA (STL) <10 mg/dL 0-9 Nov 07, 2024 09:49 AM [facility] RESPIRATORY PCR PANEL NASOPHARYNX Specimen Type: NASOPHARYNX Comment: The Blue Flame Data RP Panel combines nested multiplex PCR and [...] to the clinician evaluating the patient. STEPH Physician Practice Revenue SolutionsCharmaine Welsh, ([phone]) Ordering Provider: SUKHDEEP HENRY Report Released Date/Time: Nov 07, 2024 09:39 AM Reporting Lab: [address] [address] Performing Lab: [address] [address] *Adenovirus (BF) Not Detected Not Detect ed [...] Dete cted Nov 07, 2024 09:49 AM [facility] CPK PLASMA Specimen Type: PLASM A No comment entered. Ordering Provider: SUKHDEEP HENRY Report Released Date/Time: Nov 07, 2024 09:48 AM Reporting Lab: [place] [id number] [place] [address] Performing Lab: [address] [address] CPK 61 U/L 29-168 Oct 22, 2024 12:03 PM [facility] FERRITIN SERUM Specimen Type: SERUM No comment entered. Ordering Provider: EZ TAPIA Report Released Date/Time: Oct 22, 2024 11:52 AM Reporting Lab: [address] [address] Performing Lab: [address] [address] FERRITIN 173.22 ng/mL 10-204 Oct 22, 2024 12:03 PM [facility] IRON/TIBC PROFILE SERUM Specimen Type: SERUM No comment entered. Ordering Provider: EZ TAPIA Report Released Date/Time: Oct 22, 2024 11:52 AM Reporting Lab: [address] [address] Performing Lab: [address] [address] TIBC 324 ug/dL 250-450 TRANSFERRIN 259 mg/dL 173-360 IRON SATURATION 45 20-50 IRON 146 ug/dL 50-170 Oct 22, 2024 12:03 PM [facility] B12 SERUM Specimen Type: SERUM No comment entered. Ordering Provider: EZ TAPIA Report Released Date/Time: Oct 22, 2024 11:54 AM Reporting Lab: [address] [address] Performing Lab: [address] [address] B12 440 pg/mL 213-816 Oct 22, 2024 12:03 PM [facility] CBC BLOOD Specimen Type: BLOOD No comment entered. Ordering Provider: EZ ATPIA Report Released Date/Time: Oct 22, 2024 11:52 AM Reporting Lab: [address] [address] Performing Lab: [address] [address] WBC 6.5 10*3/uL 3.6-11.2 RBC 4.69 10*6/uL [...] 2024 08:42 PM 50 115/62 16 97 [facility] Nov 07, 2024 01:00 PM 88 133/84 17 97 4 [facility] Nov 07, 2024 08:55 AM 98.6 118 140/83 20 0 [facility] Social History: Smoking Status (Most current) and Tobacco Use (All prior to encounter date) This section includes the most current, and the historical, smoking and tobacco- related health factors from the [place] facility where the Encounter took place. Current Smoking Status This section includes the most current smoking, or tobacco-related health factor, from the [place] facility where the Encounter took place. Date/Time Current Smoking Status Comment Jessica itteja Nov 07, 2024 05:48 PM ORYX ADMIT TOBACCO SCREEN NO [facility] Tobacco Use History This section includes a history of the smoking, or tobacco-related health factors, that were collected on or before the date of the Encounter. The data comes from the [place] facility where the Encounter took place. Date/Time Smoking Status/Tobacco Use Comment F acility Jul 17, 2024 03:18 AM ORYX ADMIT TOBACCO SCREEN NO [facility] Nov 09, 2023 06:45 AM ORYX ADMIT TOBACCO SCREEN NO [facility] May 25, 2022 11:42 AM ORYX ADMIT TOBACCO SCREEN NO [facility] May 13, 2022 08:14 PM ORYX ADMIT TOBACCO SCREEN NO [facility] Apr 07, 2022 03:34 AM ORYX ADMIT TOBACCO SCREEN REFUSED [facility] Dec 20, 2021 12:44 PM ORYX ADMIT TOBACCO SCREEN NO [facility] Aug 23, 2021 08:22 PM ORYX ADMIT TOBACCO SCREEN NO [facility] Aug 12, 2021 06:24 PM ORYX ADMIT TOBACCO SCREEN NO [facility] May 12, 2008 06:16 PM LIFETIME NON-USER OF TOBACCO [facility] Jun 28, 2007 01:18 PM LIFETIME NON-USER OF TOBACCO [facility] May 03, 2006 10:56 AM LIFETIME NON-TOBACCO USER [facility] Dec 03, 2003 08:16 AM LIFETIME NON-TOBACCO USER [facility] Radiology Reports: +/- 30 days [...] from all [facility] facilities. Date/Time Radiology Report Provider Source Nov 26, 2024 01:13 PM HIP, UNILAT, 2-3 V IEWS LEFT W OR W/O PELVIS: GERDA NUNES DEC [id number] -1975 F Exm Date: NOV 26, 2024@13:13 Req Phys: GALDINO FONTANA Pat Loc: -ORTHO 1 (Req'g Loc) Img Loc: -MAIN RADIOLOGY SUITE Service: Unknown Screen: Patient answered no [facility], [facility] [address] [place] [address] (Case [id number] COMPLETE) HIP, UNILAT, 2-3 VIEWS LEFT W OR (RAD Detailed) CPT:29027 Proc Modifiers : LEFT, AP Pelvis, Frog Reason for Study: Left hip pain Clinical History: Report Status: Verified Date Reported: NOV 28, 2024 Date Verified: NOV 28, 2024 Track Watchman E-Sig:/ES/ROSALINA CHANG Report: EXAMINATION: HIP, UNILAT, 2-3 [...] osteoarthritis. Primary Interpreting Staff: ROSALINA CHANG, RADIOLOGIST (Track Watchman) /ROSALINA CROCKER [facility] Nov 07, 2024 04:[address] HEAD W/O CONT: GERDA NUNES [facility] [place] [id number] -1975 F Exm Date: NOV 07, 2024@16:16 Req Phys: SUKHDEEP EHNRY Loc: BIN-EMERGENCY DEPT 2ND SHIFT (R Img Loc: BIN-CT IMAGING BIN Service: Unknown Screen: Patient answered no [facility], [facility] [address] [place] [address] (Case [id number] COMPLETE) CT HEAD W/O CONT (CT Detailed) CPT:20789 Reason for Study: headache Clinical History: Responsible [...] 07, 2024 Date Verified: NOV 07, 2024 Track Watchman E-Sig:/ES/Geneva Egan MD Report: CT HEAD W/O CONT CASE #: [id number] DATE:11/07/2024 4:46 PM CLINICAL HISTORY:headache COMPARISON: 6 [...] Primary Interpreting Staff: Geneva Egan MD, Radiologist (Track Watchman) /GENEVA WESTFALL [facility] Nov 07, 2024 09:44 AM CHEST PORTABLE: GERDA NUNES [facility] [place] [id number] -1975 F Exm Date: NOV 07, 2024@09:44 Req Phys: SUKHDEEP HENRY Loc: -EMERGENCY DEPT 2ND SHIFT (R Img Loc: -MAIN RADIOLOGY SUITE Service: Unknown Screen: Patient answered no [facility], [facility] [address] [place] [address] (Case [id number] COMPLETE) CHEST PORTABLE (RAD Detailed) CPT:34550 Proc Modifiers : Portable Reason for Study: , cough Clinical History: Cough and fever Report Status: Verified Date Reported: NOV 07, 2024 Date Verified: NOV 07, 2024 Track Watchman E-Sig:/ES/SYED MCGINNIS MD Report: Case #[id number]. Chest [...] SYED MCGINNIS MD, Staff Physician - Radiologist (Track Watchman) /SYED HOWARD [facility] Pathology Reports: +/- 30 days [...] comes from all [facility] treatment facilities. Date/Time Pathology Report Provider Source Nov 07, 2024 12:35 PM LR MICROBIOLOGY RE PORT: Accession [UID]: [id number] [[id number]] Received: Nov 07, 2024@15:52 Collection sample: URINE,CLEAN CATCH Collection date: Nov 07, 2024 12:35 Site/Specimen: URINE Provider: SUKHDEEP HENRY Test(s) ordered: C&S URINE..................... completed: Nov 08, 2024 22:06 * BACTERIOLOGY FINAL REPORT => Nov 08, 2024 22:08 TECH CODE: [id number] Bacteriology Remark(s): CULTURE SHOWS <10,000 CFU/ML NATURE OF GROWTH SUGGESTS CONTAMINATION OR DELAY IN TRANSPORT. There will be no work up. AJK 11/08/24 =--=--=--=--=--=--=--=--=--= --=--=--=--=--=--=--=--=--=- -=--=--=--=--=--=--=-- Performing Laboratory: Bacteriology Report Performed By: [facility] [address] [place] [address]# [id number] [address] [place] [phone] LENIN DILLARD [facility] Encounter Notes: All associated encounter notes This section contains the clinical notes associated to the Encounter. Date/Time Encounter Note(s) Provider Source Nov 08, 2024 02:10 PM DISCHARGE SUMMARY: LOCAL TITLE: Discharge Summary STANDARD TITLE: DISCHARGE SUMMARY DICT DATE: NOV 08, 2024@14:41 ENTRY DATE: NOV 08, 2024@14:42:58 DICTATED BY: SIMI WALTERS ATTENDING: GIAN HERRON URGENCY: routine STATUS: COMPLETED PRINCIPAL DIAGNOSIS: mild serotonin syndrome SECONDARY DIAGNOSES: Significant Medical Problems PRESENT on Admission: depression, compartment syndrome with history of multiple surgeries, neuropathy, fibromyalgia, history of gastric sleeve procedure, hypothyroidism Significant Medical Problems NOT PRESENT on Admission: none OPERATIVE/INVASIVE PROCEDURES: none ATTENDING PHYSICIAN: Gian Herron M.D. BRIEF HISTORY AND ESSENTIAL PHYSICAL FINDINGS / HOSPITAL COURSE: GERDA Amado is a 49 Y.O FEMALE with PMHx of hypothyroidism, migraine headaches, obesity, obstructive sleep apnea, status post gastric bypass complicated by esophageal stenosis with dilatation, compartment syndrome left leg with decompression surgery and resultant chronic pain to left lower extremity on duloxetine, lumbar radiculopathy affecting left lower extremity, fibromyalgia who presented to [facility] on 11/07/24 with symptoms of [...] and supportive care. Stable for discharge on 11/08/24 CONDITION ON DISCHARGE: good. presenting symptoms now resolved FOLLOW-UP: 11/12/2024 10:30 BIN-ST CLR PACT PHONE 06 P 11/26/2024 12:30 -ORTHO MD 1 01/02/2025 13:00 -VVC [place] PSI 01/07/2025 11:30 -ONCOLOGY DRAFTER (CAD) ELECTRICAL 1 NON-VA FOLLOW-UP CARE:na DISCHARGE MEDICATIONS: Active Outpatient Medications (including Supplies): [...] USE ONLY) Indication: FOR CONTACT DERMATITIS ALLERGIES OR DRUG SENSITIVITIES: VITAMIN B12 1000MCG, PANTOPRAZOLE, AMOXICILLIN, FLONASE NASAL SOLUTION PREGABALIN, METHOCARBAMOL DIET: regular ACTIVITY: as tolerated INFORMATION REGARDING CONDITION OR PROPER HOME AND/OR WOUND CARE: na RETURN TO WORK: as tolerated DISPOSITION: [X} Discharge home [ ] Discharge to home hospice [ ] Transfer to group home [ ] Transfer to rehab [ ] Transfer to psychiatry [ ] Transfer to Spinal cord injury unit [ ] Transfer to hospice [ ] Transfer to outside facility: [ ] Transfer to outside facility under hospice: [ ] : autopsy approved by Next of Kin [ ] : autopsy not approved by Next of Kin [ ] : 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 [ ] The patient is not competent in the [place] sense of the word. TOTAL TIME SPENT FOR FINAL HOSPITAL DISCHARGE: 35 minutes. Verified By MRT/ALICE /tamera/ GIAN HERRON MD PhD STAFF PHYSICIAN Signed: 11/10/2024 08:37 for SIMI WALTERS Resident Physician /tamera/ GIAN HERRON MD PhD STAFF PHYSICIAN Cosigned: 11/10/2024 08:37 GIAN HERRON [facility] Nov 08, 2024 01:59 PM NURSING INPATIENT NOTE: LOCAL TITLE: [facility] NURSING FREQUENT DOCUMENTATION STANDARD TITLE: NURSING INPATIENT NOTE DATE OF NOTE: NOV 08, 2024@13:59 ENTRY DATE: NOV 08, 2024@13:59:36 AUTHOR: PHYLICIA BLOUNT COSIGNER: URGENCY: STATUS: COMPLETED Version 2.4 Charting in accordance with [place] APPROVED [place] STANDARD ([place]) ACUTE INPATIENT/REHABILITATION NURSING ADMISSION SCREENING, ASSESSMENT, AND STANDARDS OF CARE == NATIONAL EARLY WARNING SCORE (NEWS) == The following vital measurements were used to complete the NEWS. Measurement DT TEMP PULSE RESP BP POx F(C) (L/MIN)(%) 11/08/2024 13:08 97.7(36.5) 61 20 119/71 96 11/08/2024 09:00 98.4(36.9) 62 18 109/64 95 11/08/2024 05:30 98.3(36.8) 58 18 106/68 97 11/08/2024 00:04 98.3(36.8) 60 18 112/67 96 11/07/2024 20:42 50 16 115/62 97 11/07/2024 13:00 88 17 133/84 97 11/07/2024 08:55 98.6(37.0) 118 20 140/83 10/22/2024 11:28 97.9(36.6) 79 16 128/81 100 07/20/2024 12:00 97.9(36.6) 61 18 115/69 97 07/20/2024 09:21 98.5(36.9) 60 18 99/60 95 07/20/2024 05:35 97.7(36.5) 54 18 95/58 96 07/20/2024 00:39 98.1(36.7) 55 18 105/66 93 07/19/2024 21:37 99.1(37.3) 91 18 121/73 98 07/19/2024 19:20 99.1(37.3) 62 18 123/80 97 07/19/2024 17:00 98.5(36.9) 57 20 108/74 97 07/19/2024 12:31 62 112/72 07/19/2024 08:50 98.3(36.8) 43 18 92/56 92 07/19/2024 04:16 97.8(36.6) 60 18 115/76 97 2024 21:37 97.6(36.4) 69 18 100/61 91 2024 13:29 98.7(37.1) 58 20 110/68 97 2024 09:52 98.4(36.9) 58 20 113/71 100 2024 06:04 97.5(36.4) 55 18 117/74 95 2024 01:27 97.6(36.4) 46 18 98/65 96 2024 01:26 Refused Refused Refused Refused Refused 07/17/2024 21:10 98.4(36.9) 81 18 126/75 99 07/17/2024 15:01 99(37.2) 69 18 139/86 98 07/17/2024 09:40 98.8(37.1) 50 18 111/70 94 07/16/2024 23:42 98.1(36.7) 94 18 131/87 97 07/16/2024 22:15 84 117/91 07/16/2024 19:30 74 115/95 07/16/2024 17:00 87 139/91 07/16/2024 16:23 90 140/100 07/16/2024 11:49 98.3(36.8) 108 17 145/78 97 07/08/2024 20:56 99.1(37.3) 97 16 151/91 06/07/2024 07:53 98.5(36.9) 85 18 143/96 04/18/2024 08:58 98.9(37.2) 93 18 123/86 98 02/26/2024 11:15 97(36.1) 81 16 123/89 01/24/2024 13:56 97.4(36.3) 102 16 114/72 98 12/31/2023 21:15 98.7(37.1) 12/31/2023 21:08 98 18 150/90 11/24/2023 15:33 98(36.7) 94 16 117/74 97 11/19/2023 20:26 70 96 11/19/2023 18:51 111 20 128/80 11/11/2023 01:02 97.3(36.3) 78 15 111/71 99 11/10/2023 20:47 97.5(36.4) 81 16 110/78 98 11/10/2023 17:17 97.7(36.5) 92 18 111/68 95 11/10/2023 09:27 97.6(36.4) 76 20 118/76 99 11/10/2023 04:26 97.5(36.4) 96 16 97/86 98 11/10/2023 00:05 97.9(36.6) 95 16 126/77 95 11/09/2023 22:03 113 17 134/87 11/09/2023 21:30 98 17 117/82 11/09/2023 21:00 95 17 116/87 11/09/2023 20:13 103 17 134/86 11/09/2023 16:04 101 16 130/88 11/09/2023 11:34 102 16 133/95 11/09/2023 11:00 101 16 134/84 11/09/2023 06:56 98.2(36.8) 104 16 134/78 05/26/2023 10:40 98.2(36.8) 77 16 126/85 97 02/13/2023 14:02 98.1(36.7) 101 22 136/92 97 01/13/2023 20:30 81 18 102/ 01/13/2023 19:35 88 18 120/71 97 01/13/2023 15:59 97.6(36.4) 84 18 141/91 98 01/13/2023 14:53 97.9(36.6) 93 22 142/94 97 12/29/2022 09:27 97.5(36.4) 80 20 146/87 97 12/28/2022 16:24 98.2(36.8) 77 16 147/80 12/21/2022 13:00 74 138/76 95 12/18/2022 15:58 98.4(36.9) 84 16 162/71 12/08/2022 14:57 130/88 12/08/2022 14:52 66 18 139/103 99 11/01/2022 14:16 98.5(36.9) 75 16 148/81 09/30/2022 15:32 98.4(36.9) 73 18 119/73 08/03/2022 13:30 74 18 120/79 08/03/2022 13:06 68 18 121/84 08/03/2022 12:00 67 17 108/90 08/03/2022 11:04 84 18 109/67 08/03/2022 10:08 80 19 115/86 08/03/2022 08:55 99.4(37.4) 08/03/2022 08:45 76 18 124/95 08/03/2022 08:35 98.6(37.0) 88 20 137/84 06/20/2022 16:08 98.9(37.2) 74 18 120/88 06/07/2022 14:51 137/81 06/07/2022 14:51 98.7(37.1) 115 18 128/95 97 05/25/2022 13:29 108 140/87 05/25/2022 11:54 99(37.2) 127 24 160/121 05/14/2022 08:40 98(36.7) 65 18 93/64 97 05/14/2022 05:52 97.4(36.3) 64 18 119/74 97 05/13/2022 18:59 98.5(36.9) 88 20 150/71 97 05/13/2022 18:25 82 14 122/82 98 05/13/2022 12:36 99.7(37.6) 86 18 148/86 04/08/2022 14:25 98.2(36.8) 76 16 139/75 97 04/08/2022 11:00 98.5(36.9) 64 16 115/79 96 04/08/2022 05:20 98(36.7) 61 18 116/80 96 04/07/2022 21:14 98(36.7) 66 18 119/77 96 04/07/2022 13:15 98.3(36.8) 69 17 123/77 94 04/07/2022 10:41 97.9(36.6) 75 18 109/79 95 04/07/2022 06:32 98.1(36.7) 72 20 121/79 96 04/07/2022 01:45 98.1(36.7) 73 18 127/83 95 04/06/2022 19:02 78 18 122/74 04/06/2022 14:08 98.8(37.1) 85 16 128/92 98 02/28/2022 17:36 100.2(37.9) 102 20 133/83 98 The NEWS total is 0. 1. [...] 0 Alert Patient Status: Remains on unit /tamera/ PHYLICIA BLOUNT REGISTERED NURSE Signed: 11/08/2024 14:03 PHYLICIA BLOUNT [facility] Nov 08, 2024 01:15 PM NURSING NOTE: LOCAL TITLE: [facility] NSG IV INSERTION AND MAINTENANCE STANDARD TITLE: NURSING NOTE DATE OF NOTE: NOV 08, 2024@13:15 ENTRY DATE: NOV 08, 2024@13:16:52 AUTHOR: PHYLICIA BLOUNT EXP COSIGNER: URGENCY: STATUS: COMPLETED Version 2.2 Charting in accordance with [place] APPROVED [place] STANDARD ([place]) ACUTE INPATIENT/REHABILITATION NURSING ADMISSION SCREENING, ASSESSMENT, AND STANDARDS OF CARE ==== IV Line Insertion and Maintenance ==== ==== Peripheral IV ==== Line #1: Discontinue: Location: Right, Wrist Date/Time: Oct Reason for discontinuation: Therapy complete /es/ PHYLICIA BLOUNT REGISTERED NURSE Signed: 11/08/2024 13:18 PHYLICIA BLOUNT [facility] Nov 08, 2024 01:10 PM NURSING TRANSFER SUMMARIZATION DISCHARGE NOTE: LOCAL TITLE: YANNA DISCHARGE/TRANSFER SUMMARY ST STANDARD TITLE: NURSING TRANSFER SUMMARIZATION DISCHARGE NOTE DATE OF NOTE: NOV 08, 2024@13:10 ENTRY DATE: NOV 08, 2024@13:10:13 AUTHOR: PHYLICIA BLOUNT EXP COSIGNER: URGENCY: STATUS: COMPLETED DISCHARGE - TRANSFER SUMMARY Action: Discharge Diagnosis: Last Admission: 11/07/24 11:29:25 pm Admit Dx: AGITATION, ANXIETY Age: 49 Allergies: VITAMIN B12 1000MCG, PANTOPRAZOLE, AMOXICILLIN, FLONASE NASAL SOLUTION PREGABALIN, METHOCARBAMOL Patient Condition: Stable Vital Signs: Temperature: 97.7 F [36.5 C] (11/08/2024 13:08) Pulse: 61 (11/08/2024 13:08) Respiration: 20 (11/08/2024 13:08) Blood Pressure: 119/71 (11/08/2024 13:08) Pain: 0 (11/08/2024 13:08) Fall Risk Assessment Score: Fall Risk Level: No Risk Isolation: No Precautions: None Orientation: x3 Hygiene: Self Care Nutrition: Regular diet Special needs: Assistance: Independent Bowel/Bladder: Date of last bowel movement: Oct Defecation: Normal Able to void: YES Continent: [...] any additional risk factors. SKIN INTEGRITY: Intact STANDARD OF CARE / PRACTICE IMPLEMENTED: Indicate status at Discharge/Transfer: Flu Shot Given: No Patient refused Pneumococcal Shot Given: No Patient refused MRSA Discharge Swab Done: No Reason: discharged to home Discharged/Transfered to: Own home without home care services Accompanied by (Name & Relationship): Daughter,Esther Nunes Next of Kin notified: NO Discharge/Transfer Mode: Ambulatory Discharged/Transferred with: Written Discharge Instructions Medications Clothing / Valuables returned: Yes Describe: Prosthetics with patient: Dentures/Partials with patient: None Glasses with patient: NO Other: Printed MD Instruction sheet with medication list reviewed and given to the patient/caregiver. Patient/Caregiver verifies medication list is complete and accurate. Patient/Caregiver appeared ready for instruction (good eye contact, appropriate questions, active participation, etc) Person(s) who received education: Patient Education Topic/Teaching Needs: Medication new medicaiton/medication changes Follow-up Instructions Methods used Included: A copy of the Discharge Instructions Health Summary given to patient/caregiver and signed by patient/guardian. Patient's medications were reviewed and reconciled by discharge team. Teaching outcomes: Good level of understanding /tamera/ PHYLICIA BLOUNT REGISTERED NURSE Signed: 11/08/2024 13:14 PHYLICIA BLOUNT [facility] Nov 08, 2024 12:13 PM PHYSICIAN EDUCATION DISCHARGE NOTE: LOCAL TITLE: DISCHARGE INSTRUCTIONS [facility] STANDARD TITLE: PHYSICIAN EDUCATION DISCHARGE NOTE DATE OF NOTE: NOV 08, 2024@12:13 ENTRY DATE: NOV 08, 2024@12:13:27 AUTHOR: SIMI WALTERS COSIGNER: GIAN HERRON URGENCY: STATUS: COMPLETED MEDICATIONS THAT WERE CHANGED: duloxetine decreased from 90 mg daily to 30 mg daily MEDICATIONS THAT WERE STOPPED (AND REASON FOR STOPPING): tramadol stopped due to concern for interactions with duloxetineduloxetine 30 mg stopped to reduce total daily dose from 90 mg to 60 mg NEW MEDICATIONS WITH INSTRUCTIONS: tylenol with codeine (tylenol 3 ) take one tablet as needed by mouth every 6 hours up to 4 times a day . prescribed as limited time medication DATE OF ADMISSION: Oct 23:29 DATE OF DISCHARGE: Oct REASON(S) FOR BEING IN THE HOSPITAL: Ms. Nunes you were admitted for a number of symptoms following initiation of new medication with similar effects which was concerning for a condition called serotonin syndrome, when medications cause too much serotonin to build up in the body. This was likley mostly due to the tramadol, which can react with duloxetine. The offending medications were stopped while you were here and your symptoms improved with supportive care. Your head imaging had no evidence of any new processes so your headache was likely a normal tension headache. We stopped your tramadol and decreased you duloxetine on discharge. It is okay to continue your other medications normally including gabapentin. We have prescribed a short course of medications for pain but this medication cannot be used as a jail medication and you will need to discuss with your primary doctor next steps in addressing your leg pain YOUR OUTPATIENT CARE TEAM: Team Information Primary Care Team: GISELLE TAVERAS PACT 6 PCP *WH* PC Provider: VERNA BARRERA Position: PHYSICIAN Non-PC Team: [facility] BENITO Persaud [facility] 1 Non-PC Provider: ZAID BOLIVAR Position: ([facility]) REGISTERED FUTURE APPOINTMENTS: 11/26/2024 12:30 RUTH GONZALES 1 INPATIENT APPOINTMENT 01/02/2025 13:[facility] 01/07/2025 11:30 [facility] ([facility] 1 INPATIENT APPOINTMENT ADDITIONAL FOLLOW UP CARE: follow your primary care doctor for further adjustments of medications for pain including whether duloxetine should be returned to 90 mg daily YOUR KNOWN ALLERGIES: VITAMIN B12 1000MCG, PANTOPRAZOLE, AMOXICILLIN, FLONASE NASAL SOLUTION PREGABALIN, METHOCARBAMOL CALL YOUR DOCTOR IF YOU HAVE ANY OF THESE PROBLEMS: PHYSICAL ACTIVITY: Activity as tolerated DIET: Oral Nutrition/Diet Instructions Regular Diet: A healthy eating plan will maintain or promote good health. -Consume a diet rich in fruits, vegetables, whole grains, and healthy oils -Choose lean protein sources such as fish, poultry, beans/legumes, and non-fat or low-fat dairy sources. -Limit saturated fat such as fatty cuts of beef, advis, pork, chicken with skin, whole milk, cream, [...] indicated due to: Other reason(s) documented by physician/WEALTH MANAGEMENT ADVISOR/PA or pharmacist Reason(s): not a drinker Discharge medications for alcohol/drug disorder not offered Reason: not applicable DISCHARGE INSTRUCTIONAL MATERIALS: CONDITION OF PATIENT AT DISCHARGE: fair DISCHARGE DESTINATION: home NOTE: If you are having feelings of Depression or Emotional Distress, or feel you just need to talk with someone, please call [phone] ([phone]), [employer] Mobile App - Press 1. COPY OF DISCHARGE INSTRUCTIONS: [...] NEEDED Indication: FOR PAIN 5) LEVOTHYROXINE NA (SYNTHROID) 175MCG TAB TAKE ONE TABLET BY ACTIVE MOUTH EVERY MORNING BEFORE A MEAL TAKE 30 MINUTES BEFORE FOOD. TAKE SEPARATELY FROM ALL OTHER MEDICATIONS. Indication: FOR HYPOTHYROIDISM 6) LIDOCAINE 5% OINT APPLY SPARINGLY TO AFFECTED AREA(S) ONCE A ACTIVE DAY NEEDED (EXTERNAL USE ONLY) (WASH HANDS THOROUGHLY AFTER USE) Indication: FOR PAIN 7) SYRINGE 3ML/NDL 23G 1.5IN USE 1 SYRINGE INTRAMUSCULARLY ACTIVE EVERY 2 WEEKS Indication: FOR INJECTION 8) TIZANIDINE HCL 4MG TAB TAKE ONE TABLET BY MOUTH THREE TIMES ACTIVE A DAY NEEDED Indication: FOR SPASTICITY 9) TRAZODONE HCL 100MG TAB TAKE ONE TABLET BY MOUTH AT BEDTIME ACTIVE NEEDED Indication: FOR INSOMNIA 10) TRIAMCINOLONE ACETONIDE 0.1% CREAM APPLY SPARINGLY TO ACTIVE AFFECTED AREA(S) TWICE A DAY (EXTERNAL USE ONLY) Indication: FOR CONTACT DERMATITIS Pending Outpatient Medications Status 1) CODEINE 30/ACETAMINOPHEN 300MG TAB TAKE 1 TABLET BY MOUTH PENDING EVERY 6 HOURS NEEDED CAUTION: DO NOT EXCEED 4000MG PER DAY ACETAMINOPHEN (APAP) FROM ALL MEDS. Indication: FOR PAIN 11 Total Medications Active Remote Medications: No Active Remote Medications for this patient /angelika WALTERS Resident Physician Signed: 11/08/2024 12:26 /tamera/ GIAN HERRON MD PhD STAFF PHYSICIAN Cosigned: 11/08/2024 12:27 SIMI WALTERS [facility] Nov 08, 2024 11:28 AM INTERNAL MEDICINE INPATIENT NOTE: LOCAL TITLE: MEDICINE GENERAL INPATIENT NOTE STANDARD TITLE: INTERNAL MEDICINE INPATIENT NOTE DATE OF NOTE: NOV 08, 2024@11:28 ENTRY DATE: NOV 08, 2024@11:28:20 AUTHOR: SIMI WALTERS EXP COSIGNER: GIAN HERRON URGENCY: STATUS: COMPLETED MEDICINE GENERAL INPATIENT NOTE Has ADDENDA PROGRESS NOTES: GENERAL MEDICINE INPATIENT NOTE NOV 08, 2024 Admit Date: 11/07/2024 - Present 5-C [facility] C502-1 LOS: [address] Specialty: GENERAL(ACUTE MEDICINE) Last Prov: TWOA,MED Admitting Diagnosis: AGITATION, ANXIETY SUBJECTIVE=== INTERVAL HISTORY: Overnight, no acute events. Headache has resolved and CT head negative. Other symptoms of nausea and lightheadness have resolved. No tremors. Overall feeling better other than continued leg pain. VSS and AF. Interested in going home today. HOSPITAL COURSE: GERDA Amado is a 49 Y.O FEMALE with PMHx of hypothyroidism, migraine headaches, obesity, obstructive sleep apnea, status post gastric bypass complicated by esophageal stenosis with dilatation, compartment syndrome left leg with decompression surgery and resultant chronic pain to left lower extremity on duloxetine, lumbar radiculopathy affecting left lower extremity, fibromyalgia who presented to [facility] on 11/07/24 with symptoms of [...] serotonin syndrome as well and supportive care. OBJECTIVE==== VITAL SIGNS: Temperature: 98.4 F [36.9 C] (11/08/2024 09:00) Blood Pressure: 109/64 (11/08/2024 09:00) Pulse: 62 (11/08/2024 09:00) Respirations: 18 (11/08/2024 09:00) Weight: 182.2 lb [82.64 kg] (11/08/2024 05:30) PHYSICAL EXAM: General: well appearing, well nourished,female, in NAD HEENT: no scleral icterus, MMM, no thrush Cardiovascular: RRR, normal s1 and s2, no murmurs appreciated Pulmonary: CTAB, no wheezes, rales, or rhonchi, on RA GI: soft, NT, ND, +BS Musculoskeletal: moves all 4 extremities Neuro: alert and oriented to situation Skin: no rashes or wounds Extremities: warm, dry, no lower extremity edema Psych: appropriate affect, non-pressure speech DATA: CBC WBC 6.3 10*3/uL 11/08/2024 06:00 RBC 4.40 [...] 06:00 BASOPHILS, ABSOLUTE 0.06 10*3/uL 11/08/2024 06:00 BMP SODIUM 142 mEq/L 11/08/2024 06:00 POTASSIUM 3.9 mEq/L 11/08/2024 06:00 CHLORIDE 106 mEq/L 11/08/2024 06:00 UREA NITROGEN 21.2 mg/dL 11/08/2024 06:00 CREATININE 0.79 mg/dL 11/08/2024 06:00 CALCIUM 9.4 mg/dL 11/08/2024 06:00 CARBON DIOXIDE 27 mEq/L 11/08/2024 06:00 GLUCOSE 87 mg/dL 11/08/2024 06:00 EGFR (CKD-EPI 2020) 92.2 11/08/2024 06:00 Mg 2.0 mg/dL (11/08/24 06:00) PHOSPHOROUS 4.9 H mg/dL 11/08/2024 06:00 TSH: TSH 3.321 uIU/mL 11/07/2024 11:22 GLUCOSE HGA1C 5.7 % 06/07/2024 08:38 GLUCOSE,BLOOD-poct (STL) 78 mg/dL 07/20/2024 11:28 GLUCOSE,BLOOD-poct (STL) 74 mg/dL 07/19/2024 16:23 GLUCOSE,BLOOD-poct (STL) 78 mg/dL 07/19/2024 11:32 GLUCOSE,BLOOD-poct (STL) 109 H mg/dL 11/09/2023 23:22 IMAGING: CT head negative MICRO: reviewed ASSESSMENT/PLAN= #concern for mild serotonin syndrome, resolved #Polypharmacy - Symptoms may represent mild serotonin syndrome vs other polypharmacy. Symptoms now resolved, likely predominantly associated with tramadol given the timing of symptoms with possible reaction with the SNRI - multiple serotinergic agents including trazodone, duloxetine, and tramadol with onset of symptoms within 24 hours of starting increased dose of one of these medications concerning for serotonin syndrome Plan - okay to continue duloxetine at decreased dose 60 mg daily - f/u serotonin level - discontinue tramadol - continue trazodone 100 mg prn # Headache - likely tension headache vs medication induced. 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 Simi Walters PGY1 [facility] Internal Medicine /es/ SIMI WALTERS Resident Physician Signed: 11/08/2024 11:42 /tamera/ GIAN HERRON MD PhD STAFF PHYSICIAN Cosigned: 11/08/2024 12:41 11/08/2024 ADDENDUM STATUS: COMPLETED The was seen, examined, and discussed at length with the resident physician. Relevant labs, imaging studies, and past medical records were reviewed. I agree with the assessment and plan as described in the resident's note. /tamera/ GIAN HERRON MD PhD STAFF PHYSICIAN Signed: 11/08/2024 12:41 ROMEOSIMI Pollard [facility] Nov 08, 2024 08:28 AM NURSING NOTE: LOCAL TITLE: [facility] SKIN INSPECTION/ASSESSMENT STANDARD TITLE: NURSING NOTE DATE OF NOTE: NOV 08, 2024@08:28 ENTRY DATE: NOV 08, 2024@08:28:16 AUTHOR: PHYLICIA BLOUNT EXP COSIGNER: URGENCY: STATUS: COMPLETED Assessment Type: [...] needed - patient/resident is not at risk. SKIN INTEGRITY: Intact /tamera/ PHYLICIA BLOUNT REGISTERED NURSE Signed: 11/08/2024 08:33 PHYLICIA BLOUNT [facility] Nov 08, 2024 08:23 AM NURSING INPATIENT NOTE: LOCAL TITLE: [facility] ACUTE INPATIENT NSG SHIFT ASSESSMENT STANDARD TITLE: NURSING INPATIENT NOTE DATE OF NOTE: NOV 08, 2024@08:23 ENTRY DATE: NOV 08, 2024@08:23:33 AUTHOR: PHYLICIA BLOUNT EXP COSIGNER: URGENCY: STATUS: COMPLETED Version 2.2 Charting in accordance with [place] APPROVED [place] STANDARD (OKAES) ACUTE INPATIENT/REHABILITATION NURSING ADMISSION SCREENING, ASSESSMENT, AND STANDARDS OF CARE == ASSESSMENT == == HANDOFF == Bedside report and handoff completed == PAIN ASSESSMENT == Patient's acceptable pain goal: 1 Hardly notice pain Are you currently experiencing pain? Yes - DVPRS scale used to assess Location: Left lower extremity Defense and Veterans Pain Rating Scale (DVPRS): Pain Score: 6 == CRISTOBAL FALL SCALE & TIPS PROGRAM == Cristobal Fall Scale: The Cristobal Fall scale was performed and score was 35. This is indicative of moderate risk for falls. History of falling: immediate or within 3 months? No Secondary diagnosis: Yes Ambulatory aid: None/bedrest/nurse assist Intravenous therapy/Heparin lock: Yes Gait/Transferring: Normal/bed rest/immobile Mental Status: Oriented to own ability/knows own limitations == ENVIRONMENTAL SAFETY MANAGEMENT == Implemented safety standards of care: -Reynolds to unit & environment -Adequate room lighting -Bed in low and locked position -Call light within reach -Personal items within reach -Traffic path in room free of clutter -Non-slip footwear -Upper/half length side rails up for bed mobility -Sensory aids within reach -Encourage patient to utilize sensory support == NEUROLOGICAL == Neurological Orientation: Oriented x4 Level of Consciousness (AVPU): Alert = Appears aware of and responsive to the environment on their own. Follows commands, opens eyes spontaneously, and tracks objects. Affect/behavior: Cooperative Calm [place] Agitation Sedation Scale (RASS): 0 Alert and calm == NEUROMUSCULAR/NEUROVASCULAR EXTREMITIES ASSESSMENT == Strength: Nutrition Manager Bilateral: Strong Upper Extremity Bilateral: Full strength Lower Extremity Bilateral: Full strength Sensation: Upper Extremity Sensation Bilateral: Intact Lower Extremity Sensation Bilateral: Intact Temperature: Upper Extremity Temperature Bilateral: Warm Lower Extremity Temperature Bilateral: Warm == CARDIOVASCULAR == Heart Sounds: Normal (S1S2) Edema: None == RESPIRATORY == Respirations: Unlabored Pattern: Regular Breath Sounds Auscultated: Anterior and posterior Left Upper Lobe: Clear Right Upper Lobe: Clear Right Middle Lobe: Clear Left Lower Lobe: Clear Right Lower Lobe: Clear == GASTROINTESTINAL == Elimination: Continent == GENITOURINARY == Elimination: Continent = INTEGUMENTARY/SKIN/WOUND - (INCLUDING HUGO) SEE NOTE: VAAES SKIN INPECTION/ASSESSMENT = == ACTIVITIES OF DAILY LIVING == Hygiene ADLs: Oral Care: Non-ventilator patient: Patient teeth brushed: Independently == IV LINES == Peripheral IV: Line #1: Assessment: Location: Left, Forearm Gauge: 20 Dressing Condition: Clean, dry, intact Transparent dressing Site Condition: No redness, swelling, pain Line Status: Flushed /es/ PHYLICIA BLOUNT REGISTERED NURSE Signed: 11/08/2024 08:27 PHYLICIA BLOUNT [facility] Nov 08, 2024 05:31 AM NURSING INPATIENT NOTE: LOCAL TITLE: [facility] NURSING FREQUENT DOCUMENTATION STANDARD TITLE: NURSING INPATIENT NOTE DATE OF NOTE: NOV 08, 2024@05:31 ENTRY DATE: NOV 08, 2024@05:31:25 AUTHOR: JENNIFER MAGUIRE: URGENCY: STATUS: COMPLETED Version 2.4 Charting in accordance with [facility] KALSKAG STANDARD (OKAES) ACUTE INPATIENT/REHABILITATION NURSING ADMISSION SCREENING, ASSESSMENT, AND STANDARDS OF CARE == ACTIVITIES OF DAILY LIVING == Hygiene ADLs: Dressing: Upper Body: Independent Lower Body: Independent Eating: Independent Hand Hygiene: Performed post toileting Performed pre meals/snacks Oral Care: Non-ventilator patient: Patient teeth brushed: Independently [facility] [place] was educated that poor oral hygiene increases the risk of hospital acquired pneumonia and dental problems like gingivitis and tooth decay. was educated using their preferred method and verbalized understanding. Pericare: Soap and water Independent Personal Care: Independent === ACTIVITY/MOBILIZATION === Mobility Status: Independent: Able to stand and step without staff assistance Steady standing balance Mobilization Tolerance: Tolerates well Gait: [facility] - Highest Level of Mobility achieved this shift: 5 - Standing (1 or more minutes) == ENVIRONMENTAL SAFETY MANAGEMENT == Implemented safety standards of care: -Reynolds to unit & environment -Adequate room lighting -Bed in low and locked position -Call light within reach -Personal items within reach -Traffic path in room free of clutter -Non-slip footwear -Upper/half length side rails up for bed mobility -Sensory aids within reach -Encourage patient to utilize sensory support == GASTROINTESTINAL == No bowel movement reported by patient Elimination: == GENITOURINARY == Elimination: Continent Color/Characteristic: Yellow == PROVIDER NOTIFICATION == Provider Name: Jonathan Lawrence RN Notification Reason: Other: Pulse 58 /tamera/ JENNIFER MAGUIRE CNA RAILWAY YARD ASSISTANT Signed: 11/08/2024 05:34 Receipt Acknowledged By: 11/13/2024 00:07 /tamera/ JONATHAN LAWRENCE REGISTERED NURSE JENNIFER MAGUIRE [place] [facility] Nov 08, 2024 12:30 AM NURSING NOTE: LOCAL TITLE: [facility] PERSONAL EFFECTS STL STANDARD TITLE: NURSING NOTE DATE OF NOTE: NOV 08, 2024@00:30 ENTRY DATE: NOV 08, 2024@00:30:53 AUTHOR: JONATHAN LAWRENCE EXP COSIGNER: URGENCY: STATUS: COMPLETED PERSONAL EFFECTS Hazardous Check: Advised of prohibited hazardous items, Denies hazardous items, No hazardous items observed, Hazardous items identified and disposition: Prosthetic Check: Glasses Personal Items: Patient/Family advised that [facility] not responsible for loss of any personal effects or valuables. 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 Yes. NURSING DIAGNOSIS: Falls Potential/Actual Injury Goals: Prior to discharge, patient will:--Injury due to fall will be minimized during hospital stay, --Verbalize safety measures to lower risk of fall/injury (lock w/c, use hand rails, ask for assistance) Oct, --Identify factor(s) that may increase risk of fall before discharge, --Maintain or preserve physical mobility during hospital stay Interventions: * Score 45 --Encourage pt to ask for assistance (NSG, ), --Ambulate with walker (if ordered), --Ambulate with assistance, --Keep night light and bathroom light on at night, --Keep wheelchair in locked position, --Check for elimination needs every 2 hours, --Reynolds to unit and surroundings (bathroom, call light, etc), --Provide non slip footwear when ambulating (NSG), --Place bed in low position or use low bed Care plan status: Continued Progress toward goals documented continuously through progress notes Patient Education(Nursing,SWS,PT/OT,Di etician,Pediatric Social Worker,&Physician) Instruct as to: /tamera/ JONATHAN LAWRENCE REGISTERED NURSE Signed: 11/08/2024 00:30 JONATHAN LAWRENCE [facility] Nov 08, 2024 12:26 AM NURSING ADMISSION EVALUATION NOTE: LOCAL TITLE: [facility] ACUTE INPATIENT NSG ADMISSION SCREEN STANDARD TITLE: NURSING ADMISSION EVALUATION NOTE DATE OF NOTE: NOV 08, 2024@00:26 ENTRY DATE: NOV 08, 2024@00:26:25 AUTHOR: JONATHAN LAWRENCE COSIGNER: URGENCY: STATUS: COMPLETED = ALLERGY/ADVERSE DRUG REACTION (ADR) REVIEW (MRT5) = FACILITY ALLERGY/ADR -------- No Remote Allergy/ADR Data available for this patient [facility] FLONASE NASAL SOLUTION [facility] METHOCARBAMOL [facility] PANTOPRAZOLE [facility] PREGABALIN [facility] VITAMIN B12 1000MCG Allergy/Adverse Drug Reaction Review to be conducted by: Nurse: Results of Allergy/ADR Review: Allergy/Adverse Drug Reaction list confirmed. MEDICATION REVIEW (MRR1) Did patient bring medication(s) from home? No Medication Review conducted by Nurse Results of Medication Review: Active Medication List: INCLUDED IN THIS LIST: Alphabetical list of active outpatient prescriptions dispensed from this [place] (local) and dispensed from another [place] or [facility] facility (remote) as well as inpatient orders (local pending and active), local clinic medications, locally documented non-VA medications, and local prescriptions that have or been discontinued in the past 90 days. Non-VA Meds Last Documented On: Sep 23, 2020 NOTE The display of VA prescriptions dispensed from another [place] or [facility] facility (remote) is limited to active outpatient prescription entries matched to National Drug File at the originating site and may not include some items such as investigational drugs, compounds, etc. NOT INCLUDED IN THIS LIST: Medications self-entered by the patient into personal health records (i.e. [facility]) are NOT included in this list. Non-VA medications documented outside this [place], remote inpatient orders (regardless of status) and remote clinic medications are NOT included in this list. The patient and provider must always discuss medications the patient is taking, regardless of where the medication was dispensed or obtained. INPT ACETAMINOPHEN 325MG TAB (Status=Active) 650MG BY MOUTH EVERY EIGHT HOURS NEEDED FOR PAIN OR FEVER >/= 38C or 100.4F; MAY REPEAT X1 IN 1 HOUR IF NO RELIEF. DO NOT EXCEED 3GM/24 HR OF ACETAMINOPHEN FROM ALL SOURCES. Indication: FOR PAIN OUTPT CYANOCOBALAMIN 1000MCG/ML INJ (Status = ) INJECT 1000MCG/1ML INTRAMUSCULARLY MONDAY@1300 FOR VITAMIN B12 SUPPLEMENTATION WEEKLY FOR 7 WEEKS, TAKE EVERY MONDAY Rx# [id number] Last Released: 07/20/24 Qty/Days Supply: Rx Expiration Date: 09/08/24 Refills Remainin Indication: FOR VITAMIN B12 SUPPLEMENTATION OUTPT CYANOCOBALAMIN 1000MCG/ML INJ (Status = Active) INJECT 1000MCG/1ML INTRAMUSCULARLY EVERY 2 WEEKS FOR VITAMIN B12 SUPPLEMENTATION Rx# [id number] Last Released: 11/01/24 Qty/Days Supply: Rx Expiration Date: 10/29/25 Refills Remainin Indication: FOR VITAMIN B12 SUPPLEMENTATION OUTPT DULOXETINE HCL 30MG EC CAP (Status = Discontinued) TAKE ONE CAPSULE BY MOUTH ONCE A DAY DO NOT ABRUPTLY DISCONTINUE MEDICATION. TO BE TAKEN ALONG WITH 60MG FOR TOTAL OF 90MG DAILY Rx# [id number] Last Released: 08/03/24 Qty/Days Supply: Rx Expiration Date: 10/18/24 Refills Remainin Indication: FOR DEPRESSION OUTPT DULOXETINE HCL 30MG EC CAP (Status = Active) TAKE ONE CAPSULE BY MOUTH ONCE A DAY DO NOT ABRUPTLY DISCONTINUE MEDICATION. TO BE TAKEN ALONG WITH 60MG FOR TOTAL OF 90MG DAILY Rx# [id number] Last Released: 10/31/24 Qty/Days Supply: Rx Expiration Date: 10/30/25 Refills Remainin Indication: FOR DEPRESSION OUTPT DULOXETINE HCL 60MG EC CAP (Status = Active) TAKE ONE CAPSULE BY MOUTH ONCE A DAY DO NOT ABRUPTLY DISCONTINUE MEDICATION. TO BE TAKEN ALONG WITH 30MG FOR TOTAL OF 90MG DAILY Rx# [id number] Last Released: 11/02/24 Qty/Days Supply: Rx Expiration Date: 05/23/25 Refills Remainin Indication: FOR DEPRESSION INPT ENOXAPARIN 40MG/0.4ML INJ SYRINGE 0.4ML (Status=Active) 40MG/0.4ML UNDER THE SKIN QDAILY Indication: FOR ANTICOAGULATION OUTPT FOLIC ACID 1MG TAB (Status = Active) TAKE ONE TABLET BY MOUTH ONCE A DAY FOR FOLIC ACID SUPPLEMENTATION Rx# [id number] Last Released: 07/25/24 Qty/Days Supply: Rx Expiration Date: 07/21/25 Refills Remainin Indication: FOR FOLIC ACID SUPPLEMENTATION INPT FOLIC ACID 1MG TAB (Status=Active) 1MG BY MOUTH QDAILY Indication: FOR FOLIC ACID SUPPLEMENTATION OUTPT GABAPENTIN 300MG CAP (Status = ) TAKE ONE CAPSULE BY MOUTH AT BEDTIME RESTLESS LEG SYNDROME Rx# [id number] Last Released: 07/25/24 Qty/Days Supply: Rx Expiration Date: 10/18/24 Refills Remainin Indication: RESTLESS LEG SYNDROME OUTPT GABAPENTIN 300MG CAP (Status = Active) TAKE ONE CAPSULE BY MOUTH THREE TIMES A DAY NEEDED FOR PAIN Rx# [id number] Last Released: 11/01/24 Qty/Days Supply: 270/ Rx Expiration Date: 01/26/25 Refills Remainin Indication: FOR PAIN INPT LEVOTHYROXINE NA (SYNTHROID) 175MCG TAB (Status=Active) 175MCG BY MOUTH QAMAC Indication: FOR HYPOTHYROIDISM OUTPT LEVOTHYROXINE NA (SYNTHROID) 175MCG TAB (Status = Active) TAKE ONE TABLET BY MOUTH EVERY MORNING BEFORE A MEAL FOR HYPOTHYROIDISM TAKE 30 MINUTES BEFORE FOOD. TAKE SEPARATELY FROM ALL OTHER MEDICATIONS. Rx# [id number] Last Released: 06/11/24 Qty/Days Supply: Rx Expiration Date: 06/11/25 Refills Remainin Indication: FOR HYPOTHYROIDISM OUTPT LIDOCAINE 5% OINT (Status = Active) APPLY SPARINGLY TO AFFECTED AREA(S) ONCE A DAY NEEDED FOR PAIN (EXTERNAL USE ONLY) (WASH HANDS THOROUGHLY AFTER USE) Rx# [id number] Last Released: 10/26/24 Qty/Days Supply: Rx Expiration Date: 11/24/24 Refills Remainin Indication: FOR PAIN INPT LIDOCAINE 5% OINT (Status=Active) SPARINGLY TOP DAILY NEEDED Apply to bilateral lower legs for pain Indication: FOR PAIN INPT MELATONIN 5MG CAP/TAB (Status=Active) 5MG BY MOUTH AT BEDTIME NEEDED FOR SLEEP Indication: FOR SLEEP OUTPT OXYCODONE HCL 5MG TAB (Status = ) TAKE ONE TABLET BY MOUTH EVERY 6 HOURS NEEDED FOR ACUTE PAIN. MAY CAUSE CONSTIPATION Rx# [id number] Last Released: 07/20/24 Qty/Days Supply: 03/24 Rx Expiration Date: 08/19/24 Refills Remainin Indication: FOR ACUTE PAIN. OUTPT PRAZOSIN HCL 1MG CAP (Status = ) TAKE ONE CAPSULE BY MOUTH AT BEDTIME FOR NIGHTMARES MAY CAUSE DIZZINESS OR DROWSINESS. Rx# [id number] Last Released: 07/20/24 Qty/Days Supply: Rx Expiration Date: 08/19/24 Refills Remainin Indication: FOR NIGHTMARES OUTPT TIZANIDINE HCL 4MG TAB (Status = Active) TAKE ONE TABLET BY MOUTH THREE TIMES A DAY NEEDED FOR SPASTICITY Rx# [id number] Last Released: 09/27/24 Qty/Days Supply: Rx Expiration Date: 05/22/25 Refills Remainin Indication: FOR SPASTICITY OUTPT TRAMADOL HCL 50MG TAB (Status = ) TAKE 1 TABLET BY MOUTH FOUR TIMES A DAY NEEDED FOR PAIN Rx# [id number] Last Released: 08/01/24 Qty/Days Supply: 11/03 Rx Expiration Date: 08/28/24 Refills Remainin Indication: FOR PAIN OUTPT TRAMADOL HCL 50MG TAB (Status = Active) TAKE 1 TABLET BY MOUTH FOUR TIMES A DAY NEEDED FOR PAIN Rx# [id number] Last Released: 10/31/24 Qty/Days Supply: 11/03 Rx Expiration Date: 11/27/24 Refills Remainin Indication: FOR PAIN OUTPT TRAZODONE HCL 100MG TAB (Status = Active) TAKE ONE TABLET BY MOUTH AT BEDTIME NEEDED FOR INSOMNIA Rx# [id number] Last Released: 07/08/24 Qty/Days Supply: Rx Expiration Date: 01/26/25 Refills Remainin Indication: FOR INSOMNIA OUTPT TRIAMCINOLONE ACETONIDE 0.1% CREAM (Status = Active) APPLY SPARINGLY TO AFFECTED AREA(S) TWICE A DAY FOR CONTACT DERMATITIS (EXTERNAL USE ONLY) Rx# [id number] Last Released: 10/22/24 Qty/Days Supply: Rx Expiration Date: 11/16/24 Refills Remainin Indication: FOR CONTACT DERMATITIS SUPPLIES OUTPT SYRINGE 2.5-3ML/NDL 22G 1.5IN (Status = ) USE 1 SYRINGE INTRAMUSCULARLY EVERY WEEK FOR 7 WEEKS FOR CYANOCOBALAMIN ADMINISTRATION. Rx# [id number] Last Released: 07/20/24 Qty/Days Supply: Rx Expiration Date: 09/08/24 Refills Remainin OUTPT SYRINGE 3ML/NDL 23G 1.5IN (Status = Discontinued) USE 1 SYRINGE INTRAMUSCULARLY EVERY MONTH FOR CYANOCOBALAMIN ADMINISTRATION Rx# [id number] Last Released: 07/17/24 Qty/Days Supply: Rx Expiration Date: 11/24/24 Refills Remainin Indication: FOR INJECTION OUTPT SYRINGE 3ML/NDL 23G 1.5IN (Status = Active) USE 1 SYRINGE INTRAMUSCULARLY EVERY 2 WEEKS FOR INJECTION Rx# [id number] Last Released: 10/29/24 Qty/Days Supply: Rx Expiration Date: 10/29/25 Refills Remainin Indication: FOR INJECTION === MEDICATION REVIEW === 4. Patient/Family/Caregiver report TAKING WRITTEN all other medications GENERAL INFORMATION Admission information given by: Patient Is there a legal guardian/conservator? No Preferred language for discussing healthcare: [place] Preferred mode of communication: Verbal Items at Bedside: Visual Aids: Standard Glasses = INFECTIOUS DISEASE RISK SCREEN = Travel Screen: Have you traveled within the [...] aureus (MRSA) Swabbing: Informed verbal consent obtained = NUTRITION SCREENING = Malnutrition Screening Weight (Previous 6 months): Measurement DT WEIGHT LB(KG)[BMI] 11/08/2024 00:04 182.2(82.64)[33*] Lost weight recently without trying: No (0 [...] special dietary needs, or ethnic, cultural or orthodox preferences that would affect their dietary needs. Food Insecurity Screening Within the past 12 months, you worried whether your food would run out before you got money to buy more. Never true Within the past 12 months, the food you bought just did not last you and you did not have the money to get more. Never true Food Insecurity Disposition: RISK SCREENINGS Alcohol Screen: Screen to be completed by: [...] the patient consume alcohol? No Tobacco Use: Never - tobacco user Do you currently or have you ever used alternative nicotine products? No Substance Use Assessment: *Do you use any recreational drugs or narcotics (prescription or non-prescription)? No = RISK OF WANDERING = The patient does not have a history of wandering. The patient does not have a history of elopement. The patient is not expressing a desire to leave. ANTICIPATED DISCHARGE NEEDS Where do you live? Living with family/friends: Comment: Method of transportation upon discharge: Private Vehicle: Comment: Are there any anticipated barriers to discharge? No VISITOR INFORMATION Will you have a primary support person while in the hospital? No Patient's Visitor Restriction preferences: No Privacy Review: == CRISTOBAL FALL SCALE & TIPS PROGRAM == Cristobal Fall Scale: The Cristobal Fall scale was performed and score was 40. This is indicative of moderate risk for falls. History of falling: immediate or within 3 months? Yes Secondary diagnosis: Yes Ambulatory aid: None/bedrest/nurse assist Intravenous therapy/Heparin lock: No Gait/Transferring: Normal/bed rest/immobile Mental Status: Oriented to own ability/knows own limitations == PAIN ASSESSMENT == Patient's acceptable pain goal: 3 Sometimes distracts me Are you currently experiencing pain? Yes - DVPRS scale used to assess Location: headache Defense and Veterans Pain Rating Scale (DVPRS): Pain Score: 1 /tamera/ JONATHAN LAWRENCE REGISTERED NURSE Signed: 11/08/2024 00:29 JONATHAN LAWRENCE [facility] Nov 08, 2024 12:25 AM NURSING INPATIENT NOTE: LOCAL TITLE: [facility] NURSING FREQUENT DOCUMENTATION STANDARD TITLE: NURSING INPATIENT NOTE DATE OF NOTE: NOV 08, 2024@00:25 ENTRY DATE: NOV 08, 2024@00:25:32 AUTHOR: JONATHAN LAWRENCE EXP COSIGNER: URGENCY: STATUS: COMPLETED Version 2.4 Charting in accordance with [place] APPROVED [place] STANDARD ([facility]) ACUTE INPATIENT/REHABILITATION NURSING ADMISSION SCREENING, ASSESSMENT, AND STANDARDS OF CARE == NATIONAL EARLY WARNING SCORE (NEWS) == The following vital measurements were used to complete the NEWS. Measurement DT TEMP PULSE RESP BP POx F(C) (L/MIN)(%) 11/08/2024 00:04 98.3(36.8) 60 18 112/67 96 The NEWS total is 0. 1. Temperature [...] 0 Alert Patient Status: Remains on unit /es/ JONATHAN LAWRENCE REGISTERED NURSE Signed: 11/08/2024 00:26 JONATHAN LARWENCE [facility] Nov 08, 2024 12:22 AM NURSING INPATIENT NOTE: LOCAL TITLE: [place] ACUTE INPATIENT NSG SHIFT ASSESSMENT STANDARD TITLE: NURSING INPATIENT NOTE DATE OF NOTE: NOV 08, 2024@00:22 ENTRY DATE: NOV 08, 2024@00:22:19 AUTHOR: JONATHAN LAWRENCE EXP COSIGNER: URGENCY: STATUS: COMPLETED Version 2.2 Charting in accordance with [facility] [place] STANDARD ([facility]) ACUTE INPATIENT/REHABILITATION NURSING ADMISSION SCREENING, ASSESSMENT, AND STANDARDS OF CARE == ASSESSMENT == == HANDOFF == Bedside report and handoff completed Safety check completed == PAIN ASSESSMENT == Patient's acceptable pain goal: 3 Sometimes distracts me Are you currently experiencing pain? Yes - DVPRS scale used to assess Location: headache Defense and Veterans Pain Rating Scale (DVPRS): Pain Score: 1 == CRISTOBAL FALL SCALE & TIPS PROGRAM == Cristobal Fall Scale: The Cristobal Fall scale was performed and score was 40. This is indicative of moderate risk for falls. History of falling: immediate or within 3 months? Yes Secondary diagnosis: Yes Ambulatory aid: None/bedrest/nurse assist Intravenous therapy/Heparin lock: No Gait/Transferring: Normal/bed rest/immobile Mental Status: Oriented to own ability/knows own limitations == ENVIRONMENTAL SAFETY MANAGEMENT == Implemented safety standards of care: -Reynolds to unit & environment -Adequate room lighting -Bed in low and locked position -Call light within reach -Personal items within reach -Traffic path in room free of clutter -Non-slip footwear -Upper/half length side rails up for bed mobility -Sensory aids within reach -Encourage patient to utilize sensory support == NEUROLOGICAL == Neurological Orientation: Oriented x4 Level of Consciousness (AVPU): Alert = Appears aware of and responsive to the environment on their own. Follows commands, opens eyes spontaneously, and tracks objects. == RESPIRATORY == Respirations: Unlabored == GASTROINTESTINAL == Elimination: Continent == GENITOURINARY == Elimination: Continent = INTEGUMENTARY/SKIN/WOUND - (INCLUDING HUGO) SEE NOTE: VAAES SKIN INPECTION/ASSESSMENT = == ACTIVITIES OF DAILY LIVING == Hygiene ADLs: Oral Care: Non-ventilator patient: Patient teeth brushed: Independently Pericare: Independent == MOBILITY == Mobility Status: Independent: Able to stand and step without staff assistance == IV LINES == Peripheral IV: Present on admission: Line #1: Location: Left, Forearm Gauge: 20 == PSYCHOSOCIAL == Type of Emotional Support Provided: 1:1 discussion, Treatment discussion == ADULT EDUCATION == Updates to barriers to learning: None evident /tamera/ JONATHAN LAWRENCE REGISTERED NURSE Signed: 11/08/2024 00:25 JONATHAN LAWRENCE [facility] Nov 08, 2024 12:11 AM NURSING NOTE: LOCAL TITLE: [facility] SKIN INSPECTION/ASSESSMENT STANDARD TITLE: NURSING NOTE DATE OF NOTE: NOV 08, 2024@00:11 ENTRY DATE: NOV 08, 2024@00:11:59 AUTHOR: JONATHAN LAWRENCE EXP COSIGNER: URGENCY: STATUS: COMPLETED Assessment Type: [...] needed - patient/resident is not at risk. SKIN INTEGRITY: Intact /tamera/ JONATHAN LAWRENCE REGISTERED NURSE Signed: 11/08/2024 00:22 JONATHAN LAWRENCE [facility] Nov 07, 2024 11:35 PM ADMINISTRATIVE NOTE: LOCAL TITLE: ADMINISTRATIVE STL STANDARD TITLE: ADMINISTRATIVE NOTE DATE OF NOTE: NOV 07, 2024@23:35 ENTRY DATE: NOV 07, 2024@23:35:53 AUTHOR: YOMAIRA COOMBS EXP COSIGNER: URGENCY: STATUS: COMPLETED PATIENT HAS BEEN ADMITTED ON 5-C ROOM C502-[address] ELSY MCADAMS /tamera/ YOMAIRA COOMBS ADVANCED CLINICAL ALLERGIST Signed: 11/07/2024 23:37 Receipt Acknowledged By: 11/07/2024 23:39 /tamera/ MARY HERRON COATER HAND CLINICAL ALLERGIST YOMAIRA COOMBS [facility]
--- OUTSIDE RECORDS SUMMARY | 2025-03-22 22:01 | XMS_ITS | Encounter Summary ---
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 Date/Time Encounter Type Encounter Description Reason Provider Source Jul 17, 2024 08:55 AM PT EVAL MOD COMPLEX 30 MIN PHYSICAL THERAPY ICD-10-CM M54.32 Sciatica, left side CHAPARRITA MALIK Cecile Encounter Template Text not used by [place] Assessments - Encounter Diagnoses This section includes the primary and secondary diagnoses documented for the Encounter. Date/Time Primary/Secondary Diagnosis Diagnosis Name Provider Source Jul 17, 2024 10:36 AM PRIMARY Sciatica, left side CHAPARRITA MALIK [facility] Plan of Treatment: Future Appointments (+ 6 months) and Future Tests (+/- 45 days) The Plan of Treatment section includes future care activities for the patient [facility] [place] [facility] This section includes future appointments and future orders which are active, pending or scheduled. Future Appointments This section includes appointments that were scheduled to occur 6 months from the date of the Encounter, up to a maximum of 20 appointments. The data comes from all [facility]. Appointment Date/Time Appointment Type Appointme nt Facility Name Jul 22, 2024 10:00 AM AMBULATORY - MEDICINE [facility] Oct 22, 2024 11:30 AM AMBULATORY - MEDICINE [facility] Nov 07, 2024 08:41 AM AMBULATORY - MEDICINE [facility] Nov 12, 2024 10:30 AM AMBULATORY - MEDICINE [facility] Nov 14, 2024 09:30 AM AMBULATORY - MEDICINE [facility] Nov 26, 2024 12:30 PM AMBULATORY - SURGERY [facility] Dec 17, 2024 06:28 PM AMBULATORY - MEDICINE [facility] Jan 02, 2025 01:00 PM AMBULATORY - PSYCHIATRY [facility] Jan 07, 2025 11:30 AM AMBULATORY - MEDICINE [facility] Active, Pending, and Scheduled Orders This section includes a listing of several types of active, pending, and scheduled orders, including clinic medications orders, diagnostic test orders, procedure orders and consult orders; where the start date of the order is 45 days before the date of the Encounter or 45 days after the date of theEncounter. The data comes from all [facility]. Test Date/Time Test Type Test Details Facility Name Jul 11, 2024 04:51 PM Laboratory - Chemi stry Order TSH W/ REFLEX FT4 (STL) GREEN LI-HEP PLASMA WC [facility] Jul 12, 2024 12:00 AM Laboratory - Chemi stry Order HAPTOGLOBIN (STL) GOLD/RED SST SERUM SP [facility] Jul 12, 2024 12:00 AM Laboratory - Chemi stry Order LDH GREEN LI/HEP BLD/PLAS PLASMA SP [facility] Jul 12, 2024 12:00 AM Laboratory - Chemi stry Order FERRITIN GOLD/RED SST SERUM SP . [facility] Jul 12, 2024 12:00 AM Laboratory - Chemi stry Order IRON/TIBC PROFILE GOLD/RED SST SERUM SP . [facility] Jul 12, 2024 12:00 AM Laboratory - Chemi stry Order RETIC RATIO BLOOD SP ONCE . [facility] Jul 12, 2024 12:00 AM Laboratory - Chemi stry Order B12 GOLD/RED SST SERUM SP . [facility] Jul 12, 2024 12:00 AM Laboratory - Chemi stry Order FOLATE (STL-MA) GOLD/RED SST SERUM SP . [facility] Jul 16, 2024 11:36 PM Laboratory - Chemi stry Order MRSA SURVL NARES DNA NARES WC [facility] Lab Results: +/- [...] Type Comment Jul 20, 2024 11:28 AM [facility] GLUCOSE,BLOOD-poct (STL) BLOOD Specimen Type: BLOOD Comment: Test Performed by: [id number] Meter #: [id number] Ordering Provider: KRYSTIAN KUMARI Report Released Date/Time: Jul 20, 2024 11:50 AM Reporting Lab: [facility] [address] [facility] [address] Performing Lab: [facility] [address] [facility] [address] GLUCOSE,BLOOD-poct (STL) 78 mg/dL 72-99 Jul 20, 2024 08:02 AM [facility] MAGNESIUM PLASMA Specimen Type: PLASM A Comment: No hemolysis noted. Ordering Provider: MICHAEL FELIZ Report Released Date/Time: Jul 17, 2024 03:01 PM Reporting Lab: [facility] [address] [facility] [address] Performing Lab: [facility] [address] [address] MAGNESIUM 2.1 mg/dL 1.6-2.6 Jul 20, 2024 08:02 AM [facility] RENAL PANEL PLASMA Specimen Type: PLASM A Comment: No hemolysis noted. Ordering Provider: MICHAEL FELIZ Report Released Date/Time: Jul 17, 2024 03:01 PM Reporting Lab: [address] [address] Performing Lab: [address] [address] CREATININE 0.81 mg/dL 0.6-1.1 UREA NITROGEN 16.7 mg/dL 9.0-25.0 GLUCOSE 99 mg/dL 72-99 SODIUM 142 meq/L 136-145 POTASSIUM 4.2 meq/L 3.5-5 CHLORIDE 108 meq/L H 98-107 CARBON DIOXIDE 25 meq/L 22-31 CALCIUM 9.6 mg/dL 8.4-10.4 PHOSPHOROUS 3.9 mg/dL 2.3-4.7 ALBUMIN 3.7 g/dL 3.4-5 EGFR (CKD-EPI 2020) 89.5 >60 Jul 19, 2024 04:23 PM [facility] GLUCOSE,BLOOD-poct (STL) BLOOD Specimen Type: BLOOD Comment: Test Performed by: [id number] Meter #: [id number] Ordering Provider: KRYSTIAN KUMARI Report Released Date/Time: Jul 19, 2024 04:54 PM Reporting Lab: [address] [address] Performing Lab: [address] [address] GLUCOSE,BLOOD-poct (STL) 74 mg/dL 72-99 Jul 19, 2024 11:32 AM [facility] GLUCOSE,BLOOD-poct (STL) BLOOD Specimen Type: BLOOD Comment: Test Performed by: [id number] Meter #: [id number] Ordering Provider: QUOC,MED Report Released Date/Time: Jul 19, 2024 11:55 AM Reporting Lab: [address] [place] [address] Performing Lab: [address] [address] GLUCOSE,BLOOD-poct (STL) 78 mg/dL 72-99 Jul 19, 2024 06:59 AM [facility] MAGNESIUM PLASMA Specimen Type: PLASM A Comment: No hemolysis noted. Ordering Provider: MICHAEL FELIZ Report Released Date/Time: Jul 17, 2024 03:01 PM Reporting Lab: [address] [address] Performing Lab: [address] [address] MAGNESIUM 2.1 mg/dL 1.6-2.6 Jul 19, 2024 06:59 AM [facility] RENAL PANEL PLASMA Specimen Type: PLASM A Comment: No hemolysis noted. Ordering Provider: MICHAEL FELIZ Report Released Date/Time: Jul 17, 2024 03:01 PM Reporting Lab: [address] [address] Performing Lab: [address] [address] CREATININE 0.88 mg/dL 0.6-1.1 UREA NITROGEN 19.2 mg/dL 9.0-25.0 GLUCOSE 52 mg/dL L 72-99 SODIUM 143 meq/L 136-145 POTASSIUM 3.5 meq/L 3.5-5 CHLORIDE 108 meq/L H 98-107 CARBON DIOXIDE 26 meq/L 22-31 CALCIUM 10.0 mg/dL 8.4-10.4 PHOSPHOROUS 3.8 mg/dL 2.3-4.7 ALBUMIN 4.1 g/dL 3.4-5 EGFR (CKD-EPI 2020) 81.0 >60 Jul 19, 2024 06:59 AM [facility] CBC BLOOD Specimen Type: BLOOD No comment entered. Ordering Provider: MICHAEL FELIZ Report Released Date/Time: Jul 17, 2024 03:01 PM Reporting Lab: [address] [address] Performing Lab: [facility] [address] [facility] [address] WBC 4.6 10*3/uL 3.6-11.2 RBC 4.82 10*6/uL [...] 0.05 10*3/uL 0.00-0. 20 2024 06:35 AM [facility] MAGNESIUM PLASMA Specimen Type: PLASM A Comment: No hemolysis noted. Ordering Provider: MICHAEL FELIZ Report Released Date/Time: Jul 17, 2024 03:01 PM Reporting Lab: [place] [address] [facility] [address] Performing Lab: [address] [address] MAGNESIUM 2.2 mg/dL 1.6-2.6 2024 06:35 AM [facility] B12 SERUM Specimen Type: SERUM No comment entered. Ordering Provider: MICHAEL FELIZ Report Released Date/Time: Jul 17, 2024 03:01 PM Reporting Lab: [address] [address] Performing Lab: [address] [place] [address] B12 194 pg/mL L 213-816 2024 06:35 AM [facility] FERRITIN SERUM Specimen Type: SERUM No comment entered. Ordering Provider: MICHAEL FELIZ Report Released Date/Time: Jul 17, 2024 03:01 PM Reporting Lab: [address] [address] Performing Lab: [address] [address] FERRITIN 11.54 ng/mL 10-204 2024 06:35 AM [facility] IRON/TIBC PROFILE SERUM Specimen Type: SERUM No comment entered. Ordering Provider: MICHAEL FELIZ Report Released Date/Time: Jul 17, 2024 03:01 PM Reporting Lab: [address] [address] Performing Lab: [place] [address] [facility] [address] TIBC 420 ug/dL 250-450 TRANSFERRIN 336 mg/dL 173-360 IRON SATURATION 11 L 20-50 IRON 45 ug/dL L 50-170 2024 06:35 AM [facility] FOLATE (L-AL) SERUM Specimen Type: SERUM No comment entered. Ordering Provider: MICHAEL FELIZ Report Released Date/Time: Jul 17, 2024 03:01 PM Reporting Lab: [address] [address] Performing Lab: [address] [address] FOLATE (L-MA) 8.8 ng/mL 7-20 2024 06:35 AM [facility] VITAMIN D, 25-HYDROXY SERUM Specimen Type: SE RUM No comment entered. Ordering Provider: MICHAEL FELIZ Report Released Date/Time: Jul 17, 2024 03:49 PM Reporting Lab: [address] [address] Performing Lab: [facility] [address] [facility] [address] VITAMIN D, 25-HYDROXY 39.3 ng/mL 30-96 2024 06:35 AM [facility] CBC BLOOD Specimen Type: BLOOD No comment entered. Ordering Provider: MICHAEL FELIZ Report Released Date/Time: Jul 17, 2024 03:01 PM Reporting Lab: [facility] [address] [place] [address] Performing Lab: [address] [address] WBC 5.6 10*3/uL 3.6-11.2 RBC 4.41 10*6/uL [...] 0.05 10*3/uL 0.00-0. 20 2024 06:35 AM [facility] RENAL PANEL PLASMA Specimen Type: PLASM A Comment: No hemolysis noted. Ordering Provider: MICHAEL FELIZ Report Released Date/Time: Jul 17, 2024 03:01 PM Reporting Lab: [place] [address] [facility] [address] Performing Lab: [address] [address] CREATININE 0.85 mg/dL 0.6-1.1 UREA NITROGEN 20.0 mg/dL 9.0-25.0 GLUCOSE 91 mg/dL 72-99 SODIUM 142 meq/L 136-145 POTASSIUM 4.2 meq/L 3.5-5 CHLORIDE 108 meq/L H 98-107 CARBON DIOXIDE 26 meq/L 22-31 CALCIUM 9.6 mg/dL 8.4-10.4 PHOSPHOROUS 4.9 mg/dL H 2.3-4.7 ALBUMIN 3.9 g/dL 3.4-5 EGFR (CKD-EPI 2020) 84.5 >60 Jul 17, 2024 08:37 PM [facility] VITAMIN B1 PLASMA Specimen Type: PLASM A Comment: Vitamin supplementation within 24 hours prior to blood draw may affect the accuracy of the results. This test was developed and its analytical performance characteristics have been determined by [employer] [place], [place]. It has not been cleared or approved by the U.S. Food and Drug Administration. This assay has been validated pursuant to the CLIA regulations and is used for clinical purposes. Test Performed by [facility], [facility], [address] [place] [address] Remi Dos Santos M.D., Ph.D., Director of Laboratories , CLIA [id number] Ordering Provider: MICHAEL FELIZ Report Released Date/Time: Jul 17, 2024 04:40 PM Reporting Lab: [facility] [address] [facility] [address] Performing Lab: [facility] [address] [facility] VITAMIN B1 13 nmol/L 8-30 Jul 17, 2024 06:48 AM [facility] TSH (MA-PB) SERUM Specimen Type: SERUM No comment entered. Ordering Provider: REMINGTON COTA Report Released Date/Time: Jul 17, 2024 03:52 AM Reporting Lab: [facility] [address] [facility] [address] Performing Lab: [address] [address] TSH 3.837 u[IU]/mL 0.47-5 Jul 17, 2024 06:48 AM [facility] BASIC METABOLIC PANEL PLASMA Specimen Type: PL ASMA Comment: No hemolysis noted. Ordering Provider: REMINGTON COTA Report Released Date/Time: Jul 16, 2024 11:36 PM Reporting Lab: [facility] [address] [place] [address] Performing Lab: [address] [address] CREATININE 0.89 mg/dL 0.6-1.1 UREA NITROGEN 14.1 mg/dL 9.0-25.0 GLUCOSE 86 mg/dL 72-99 SODIUM 144 meq/L 136-145 POTASSIUM 3.5 meq/L 3.5-5 CHLORIDE 109 meq/L H 98-107 CARBON DIOXIDE 24 meq/L 22-31 CALCIUM 9.7 mg/dL 8.4-10.4 EGFR (CKD-EPI 2020) 80.4 >60 Jul 17, 2024 06:48 AM [facility] CBC BLOOD Specimen Type: BLOOD No comment entered. Ordering Provider: REMINGTON COTA Report Released Date/Time: Jul 16, 2024 11:36 PM Reporting Lab: [facility] [address] [facility] [address] Performing Lab: [address] [address] WBC 6.0 10*3/uL 3.6-11.2 RBC 4.55 10*6/uL [...] 0.00-0. 20 Jul 16, 2024 11:44 PM [facility] MRSA SURVL NARES DNA NARES [...] Jul 16, 2024 11:36 PM Reporting Lab: [address] [address] Performing Lab: [place] [address] MRSA SURVL NARES DNA Negative Negative Jul 16, 2024 04:15 PM [facility] TEST URINE (MA-STL) URINE Specimen Type: URINE No comment entered. Ordering Provider: ROBERTA RIVAS Report Released Date/Time: Jul 16, 2024 01:23 PM Reporting Lab: [address] [address] Performing Lab: [address] [address] Qualitative Test NEG NEGAT MISAEL Jul 16, 2024 04:15 PM [facility] URINALYSIS W/ CX REFLEX (STL-PB) URINE Specim en Type: URINE No comment entered. Ordering Provider: ROBERTA RIVAS Report Released Date/Time: Jul 16, 2024 01:23 PM Reporting Lab: [facility] [address] [facility] [address] Performing Lab: [address] [address] URINE COLOR Yellow Yellow U.BILIRUBIN Negative mg/dL [...] 1.026 1.005-1.029 Jul 16, 2024 02:30 PM [facility] CPK PLASMA Specimen Type: PLASM A Comment: No hemolysis noted. Ordering Provider: ROBERTA RIVAS Report Released Date/Time: Jul 16, 2024 01:23 PM Reporting Lab: [address] [address] Performing Lab: [address] [address] CPK 92 U/L 29-168 Jul 16, 2024 02:30 PM [facility] MAGNESIUM PLASMA Specimen Type: PLASM A Comment: No hemolysis noted. Ordering Provider: ROBERTA RIVAS Report Released Date/Time: Jul 16, 2024 01:23 PM Reporting Lab: [address] [address] Performing Lab: [address] [address] MAGNESIUM 2.0 mg/dL 1.6-2.6 Jul 16, 2024 02:30 PM [facility] PHOSPHOROUS PLASMA Specimen Type: PLASM A Comment: No hemolysis noted. Ordering Provider: ROBERTA RIVAS Report Released Date/Time: Jul 16, 2024 01:23 PM Reporting Lab: [facility] [address] [facility] [address] Performing Lab: [facility] [address] [place] [address] PHOSPHOROUS 3.4 mg/dL 2.3-4.7 Jul 16, 2024 02:30 PM [facility] COMPREHENSIVE METABOLIC PANEL PLASMA Specimen Type: PLASMA Comment: No hemolysis noted. Ordering Provider: ROBERTA RIVAS Report Released Date/Time: Jul 16, 2024 01:23 PM Reporting Lab: [facility] [address] [place] [address] Performing Lab: [address] [address] CREATININE 0.86 mg/dL 0.6-1.1 UREA NITROGEN 15.1 [...] 83.8 >60 Jul 16, 2024 02:30 PM [facility] CBC BLOOD Specimen Type: BLOOD No comment entered. Ordering Provider: ROBERTA RIVAS Report Released Date/Time: Jul 16, 2024 01:23 PM Reporting Lab: [facility] [address] [facility] [address] Performing Lab: [address] [address] WBC 6.3 10*3/uL 3.6-11.2 RBC 4.76 10*6/uL [...] Height Weight Body Mass Index Source Jul 17, 2024 09:58 PM 1 [facility] Jul 17, 2024 09:10 PM 98.4 81 126/75 18 99 7 [facility] Jul 17, 2024 09:00 PM 8 [facility] Jul 17, 2024 08:50 PM 8 [facility] Jul 17, 2024 06:45 PM 0 [facility] Social History: Smoking Status [...] Encounter took place. Date/Time Current Smoking Status Bryon sidhu Jul 17, 2024 03:18 AM ORYX ADMIT TOBACCO SCREEN NO [facility] Tobacco Use History This section includes a history of the smoking, or tobacco-related health factors, that were collected on or before the date of the Encounter. The data comes from the [place] facility where the Encounter took place. Date/Time Smoking Status/Tobacco Use Comment F acility Nov 09, 2023 06:45 AM ORYX ADMIT TOBACCO SCREEN NO [facility] May 25, 2022 11:42 AM ORYX ADMIT TOBACCO SCREEN NO [facility] May 13, 2022 08:14 PM ORYX ADMIT TOBACCO SCREEN NO [facility] Apr 07, 2022 03:34 AM ORYX ADMIT TOBACCO SCREEN REFUSED [facility] Dec 20, 2021 12:44 PM ORYX ADMIT TOBACCO SCREEN NO [facility] Aug 23, 2021 08:22 PM ORYX ADMIT TOBACCO SCREEN NO [facility] Aug 12, 2021 06:24 PM ORYX ADMIT TOBACCO SCREEN NO [facility] May 12, 2008 06:16 PM LIFETIME NON-USER OF TOBACCO [facility] Jun 28, 2007 01:18 PM LIFETIME NON-USER OF TOBACCO [facility] May 03, 2006 10:56 AM LIFETIME NON-TOBACCO USER [facility] Dec 03, 2003 08:16 AM LIFETIME NON-TOBACCO USER [facility] Radiology Reports: +/- 30 days [...] the Encounter. The data comes from all [place] treatment facilities. Date/Time Radiology Report Provider Source Jul 16, 2024 02:59 PM TIBIA & FIBULA,LEF T, 2 VIEWS: GERDA NUNES [id number] -1975 F Exm Date: JUL 16, 2024@14:59 Req Phys: ROBERTA RIVAS Loc: BIN-EMERGENCY DEPT 2ND SHIFT (R Img Loc: B[facility]-MAIN RADIOLOGY SUITE Service: Unknown Screen: Patient answered no [facility] [address] [place] [address] (Case [id number] COMPLETE) TIBIA & FIBULA,LEFT, 2 VIEWS (RAD Detailed) CPT:01544 Proc Modifiers : LEFT Reason for Study: left calf pain, rule out foregin body Clinical History: Report Status: Verified Date Reported: JUL 16, 2024 Date Verified: JUL 16, 2024 Blower Feeder Dyed Raw Stock E-Sig:/ES/INDIO SHARMA Report: EXAMINATION: TIBIA & FIBULA,LEFT, [...] Primary Interpreting Staff: INDIO SHARMA, Diagnostic Radiologist (Blower Feeder Dyed Raw Stock) /INDIO BRANDT [facility] Jul 16, 2024 02:47 PM US EXTREMITY VEINS UNILAT OR LTD: GERDA NUNES [facility] [id number] -1975 F Exm Date: JUL 16, 2024@14:47 Req Phys: ROBERTA RIVAS Loc: BIN-EMERGENCY DEPT 2ND SHIFT (R Img Loc: BIN-ULTRASOUND BIN Service: Unknown Screen: Patient answered no [facility] [address] [place] [address] (Case [id number] COMPLETE) US EXTREMITY VEINS UNILAT OR LTD (US Detailed) CPT:68304 Reason for Study: left leg pain Clinical History: Report Status: Verified Date Reported: JUL 16, 2024 Date Verified: JUL 16, 2024 Blower Feeder Dyed Raw Stock E-Sig:/TAMERA/INDIO SHARMA Report: [id number] US EXTREMITY VEINS UNILAT OR LTD Comparison: Left lower extremity ultrasound 11/09/2023. Findings: The left lower extremity deep veins are compressible throughout their course. No thrombi are visualized. Venous flow velocities demonstrate normal variation with respiration and augmentation. Impression: No evidence of deep venous thrombosis of the left lower extremity deep veins. Dictated by Kanika Lucero M.D. (vice president payment). I, Indio Sharma, have reviewed the images and report and concur with these findings. Primary Interpreting Staff: INDIO SHARMA, Diagnostic Radiologist (Blower Feeder Dyed Raw Stock) Primary Interpreting Resident: KANIKA LUCERO, Diagnostic Basket Operator /INDIO ABARCA [facility] Jun 27, 2024 06:00 AM MRI SPINE THORACIC W/O CONT: GERDA NUNES [facility] [id number] -1975 F Exm Date: JUN 27, 2024@06:00 Req Phys: VERNA BARRERA Pat Loc: [facility] PACT 6 PCP (Req'g Lo Img Loc: OUTSIDE BIN-MRI Service: Unknown Screen: Patient answered no (Case [id number] COMPLETE) MRI SPINE THORACIC W/O CONT (MRI Detailed) CPT:95892 Reason for Study: OUTSIDE STUDY Clinical History: Report Status: Electronically Filed Date Reported: JUL 08, 2024 Report: This study was performed outside the [place] in another facility and images were uploaded into [employer]. The report has been scanned into [employer]. In order to upload images a case number was needed, therefore this is an administrative report. Impression: This study was performed outside the [place] in another facility and images were uploaded into [employer]. The report has been scanned into [employer]. In order to upload images a case number was needed, therefore this is an administrative report VERIFIED BY: / *ELECTRONICALLY FILED* [facility] Encounter Notes: All associated encounter notes This section contains the clinical notes associated to the Encounter. Date/Time Encounter Note(s) Provider Source Jul 17, 2024 08:55 AM PHYSICAL THERAPY CONSULT: LOCAL TITLE: PT CONSULT [facility] STANDARD TITLE: PHYSICAL THERAPY CONSULT DATE OF NOTE: JUL 17, 2024@08:55 ENTRY DATE: JUL 17, 2024@09:45:39 AUTHOR: CHAPARRITA MALIK EXP COSIGNER: URGENCY: STATUS: COMPLETED PHYSICAL THERAPY INITIAL EVALUATION: Chaparrita Malik DPT Provisional Dx: Sciatica, left side (ICD-10-CM M54.32) Requesting Provider:Remington Cota Reason for Request: New or evolving neurological deficit such as stroke, SCI, TBI, Multiple Sclerosis, etc. Patient with worsenig left lower extremity pain and potentially would need strengthening exercises. PRECAUTIONS: As tolerated Activity order: Ad daniel -Other people involved in treatment []None [x]Included: JASMYN Horner Length of Visit:5295-2574 (15 minutes) Evaluation: ___Low _x__Mod ___ High Treatment:PT consult Evaluation Date: 07/17/2024 Visit #1 # of refusals:0 HISTORY OF PRESENT ILLNESS: [...] history of ischemic heart disease (SNOMED CT 931127012) 2) Migraine (SNOMED CT 15428930) 3) Vitamin D deficiency 4) Hypothyroidism 5) Low back pain 6) Depression 7) Mastodynia 8) Lumbar radiculopathy 9) Irritable bowel syndrome characterized by alternating bowel habit 10) Fibromyalgia 11) Chronic pain in female pelvis 12) Kidney stone 13) Insomnia 14) Compartment syndrome 15) Obesity (SCT [id number]) 16) Arthritis 17) Intermittent palpitations 18) Chronic obstructive lung disease 19) Obstructive sleep apnea of adult 20) Poor pelvic muscle tone 21) Cervicalgia 22) Bacterial cellulitis 23) Overactive bladder SOCIAL HISTORY/PRIOR LEVEL OF FUNCTION *Information provided by: Patient Home environment: Lives in a house with 12 steps within the home and 1 step to enter. Assistance at home: Independent Home equipment: Cane ADLs: Independent IADLs: Vocation: Information not obtained Mobility: Patient reports use of cane when experiencing an increase in left calf pain. Patient notes prior to left calf pain she was independent with moblity History of falls: none SUBJECTIVE: Pt verbally agreeable to PT evaluation. Pt goals: None obtained during encounter at this date. COGNITION/COMMUNICATION: alert and oriented in all spheres. Communication limited by left calf pain and fatigue. Intermittent drowsiness, required redirection to bring back attention to participate in session. Barriers to learning: None PAIN: 8/10 at the start of session, patient reports 10/10 pain last night. Location: Left calf and knee Quality: achy, heavy, stiffness Pain intervention: See RN notes for medical management of pain. Abbreviations: WFL=Within Functional Limits; (I)=Independent; A=Assist; A/PROM=Act.Rom/Passive ROM; STR=Strength; SUP=Supervision; NT=Not Tested; VC=Verbal Cues; DRAFTER CARTOGRAPHIC=Prior To Admission; [facility]; CGA=Contact Guard Assist OBJECTIVE: Patient recieved at bed level. LDA: None VITALS: Not obtained during encounter at this date. Patient does not report adverse symptoms. Position BP HR O2 ROM: grossly WFL's in all extremities STRENGTH: grossly 4/5 in bilateral UE's LEs L R Right LE strength grossly 5/5 strength. Left LE strength of hip flexors 4/5, all other muscle groups 3/5, no resistance applied due to pain. NEURO: Sensation: light touch intact in all 4 extremities Tone/Motor Control: grossly WFL's throughout Proprioception: Not tested. Coordination: grossly WFL throughout Special Tests/Outcome Measures: None used during this encounter at this date. FUNCTIONAL MOBILITY: Rolling: Not tested Supine <-> sit: Standby assist, increased time due to pain Scooting: Standby assist, increased time due to pain Transfer bed <-> chair: Not tested Sit <-> stand: Minimal hand held assist. Gait: Patient ambulated 10 ft, bed to/from door, with minimal hand held assist from physical therapist. Patient reports increased pain during ambulation. Endurance is limited by left calf pain and fatigue. Patient reports she has not slept well the past few nights. -gait pattern/deviations: Patient demonstrated decreased weight bearing through the left LE, antalgic gait pattern, decreased stride length, and decreased heel strike on the left. W/C mobility: Not tested Stairs: Not tested on this date. Plan to assess ability to navigate stairs when left calf pain decreases and patient is able to tolerate more out of bed activities. Interventions: []Therapeutic Exercise []Therapeutic Activity []Neuromuscular Re-education []Gait training []Balance training [x]EDUCATION: Pt/family member demonstrated understanding of education/instructions. Pt given 1:1 instruction on: _X__Purpose of PT _X__ findings of evaluation, POC, goals, DC plan per assessment ___ cardiac condition ___body/back mechanics ___TKA/CODI ___Gait ___Falls ___ Equip use/care ___ Exercise program ___respiratory exercises/effective cough ___ Weightbearing status ___ w/c safety of importance of locking brakes before transfers and asking for assistance with transfers Pt left laying in bed with HOB elevated and blankets donned, all needs met, call light in reach. Handed off to social work associate. Assessment: Pt is a 48 year-old female admitted to [facility] on 07/16/2024 for left calf pain. Patient's PMH includes: migraines, fibromyalgia, chronic pain syndrome, cervicalgia, lumbar DDD, and arthritis. Pt referred to PT for evaluation on 07/17/2024. Patient tolerated treatment session fairly. Patient ambulated 10 ft, bed to/from door, with minimal hand held assist from physical therapist. Patient reports increased pain during ambulation. Endurance is limited by left calf pain and fatigue. Patient reports she has not slept well the past few nights. Pt will benefit from skilled PT to maximize functional mobility and assess elevation performance. DISCHARGE RECOMMENDATION: [x]Other: Anticipate safe discharge home when pain is managed. Therapy recommends following up with outpatient PT to continue to address L calf pain and mobility deficits. Equipment Issued: none issued at this time. Will continue to monitor needs for device with greater support. Problems: complicating co-morbidities decreased independence with functional mobility decreased endurance compromised balance decreased tolerance to activity compromised safety with mobility Goals (short term, 5-7 visits): 1. Pt will transfer from sit <> stand modified independently with least restricitve device. 2. Pt will ambulate 50 ft modified independently with least restrictive device. 3. Pt will negotiate a flight of stairs with handrail modified independent with least restricitive device in order to safely navigate home environment. <*><*><*> MOBILITY ASSESSMENT ITEMS <*><*><*> --- --- --- --- --- --- --- --- --- --- --- --- --- --- --- <> SECTION A THROUGH G: ADMISSION GOAL DISCHARGE A. ROLL LEFT AND RIGHT....: [] [] [] B. SIT TO LYING...........: [4] [6] [] C. LYING TO SITTING ON SIDE OF BED............: [4] [6] [] D. SIT TO STAND...........: [3] [6] [] E. CHAIR/[id number]-[id number] TRANSFER...............: [] [] [] F. TOILET TRANSFER........: [...] at the discharge Note as well. /tamera/ CHAPARRITA MALIK PHYSICAL THERAPIST Signed: 07/17/2024 10:37 CHAPARRITA MALIK [facility]
--- OUTSIDE RECORDS SUMMARY | 2025-03-22 22:01 | XMS_ITS | Encounter Summary ---
Author Name [facility] Address [address] [place] [address] Care Team Providers Care Guest Request Runner Name Role Phone VERNA BARRERA Primary Care [...] AID (WNR) Oct 23, 2016 MEDICAI D [id number] GERDA NUNES PATIENT Selected Encounter This section includes the information on record at [place] for the Encounter. Date/Time Encounter Type Encounter Description Reason Pro vider Source Jan 06, 2025 10:19 AM CASE MANAGEMENT ADMIN PAT ACTIVTIES (MASNONCT) ANAHI CHILDRESS Encounter Template Text not used by [...] 07, 2025 11:30 AM AMBULATORY - MEDICINE [facility] Apr 18, 2025 02:30 PM AMBULATORY - PS[facility]CHIATRY [facility] Lab Results: +/- 30 days [...] Type Comment Jan 07, 2025 10:20 AM [facility] FERRITIN SERUM Specimen Type: SERUM No comment entered. Ordering Provider: EZ TAPIA Report Released Date/Time: Oct 22, 2024 02:14 PM Reporting Lab: [address] [address] Performing Lab: [address] [address] FERRITIN 174.43 ng/mL Jan 07, 2025 10:20 AM [facility] IRON/TIBC PROFILE SERUM Specimen Type: SERUM No comment entered. Ordering Provider: EZ TAPIA Report Released Date/Time: Oct 22, 2024 02:14 PM Reporting Lab: [address] [address] Performing Lab: [address] [address] TIBC 323 ug/dL 250-450 TRANSFERRIN 258 mg/dL 173-360 IRON SATURATION 38 20-50 IRON 122 ug/dL 50-170 Jan 07, 2025 10:20 AM [facility] CBC BLOOD Specimen Type: BLOOD No comment entered. Ordering Provider: EZ TAPIA Report Released Date/Time: Oct 22, 2024 02:14 PM Reporting Lab: [address] [address] Performing Lab: [address] [address] WBC 5.6 10*3/uL 3.6-11.2 RBC 4.59 10*6/uL [...] 0.00-0. 20 Dec 17, 2024 07:11 PM [facility] TROPONIN I PLASMA Specimen Type: PLASM A Comment: No hemolysis noted. Ordering Provider: VICTOR M HOUGH Report Released Date/Time: Dec 17, 2024 06:44 PM Reporting Lab: [address] [address] Performing Lab: [address] [address] TROPONIN I <0.010 ng/mL 0-0.033 Dec 17, 2024 07:11 PM [facility] COMPREHENSIVE METABOLIC PANEL PLASMA Specimen Type: PLASMA Comment: No hemolysis noted. Ordering Provider: VICTOR M HOUGH Report Released Date/Time: Dec 17, 2024 06:44 PM Reporting Lab: [address] [address] Performing Lab: [address] [address] CREATININE 0.89 mg/dL 0.6-1.1 UREA NITROGEN 17.8 [...] 79.9 >60 Dec 17, 2024 07:11 PM [facility] CBC BLOOD Specimen Type: BLOOD No comment entered. Ordering Provider: VICTOR M HOUGH Report Released Date/Time: Dec 17, 2024 06:44 PM Reporting Lab: [facility] [address] [facility] [address] Performing Lab: [place] [id number] [facility] [address] WBC 7.5 10*3/uL 3.6-11.2 RBC 4.79 10*6/uL [...] 0.60 BASOPHILS, ABSOLUTE 0.08 10*3/uL 0.00-0. 20 Encounter Notes: All associated encounter notes This section contains the clinical notes associated to the Encounter. Date/Time Encounter Note(s) Provider Source Jan 06, 2025 10:19 AM NURSING CONSULT: LOCAL TITLE: Traveling/Relocating Consult STANDARD TITLE: NURSING CONSULT DATE OF NOTE: JAN 06, 2025@10:19 ENTRY DATE: JAN 06, 2025@10:19:37 AUTHOR: ANAHI CHILDRESS EXP COSIGNER: URGENCY: STATUS: COMPLETED TVC consult received. Email with scheduling and general information sent to [place]'s listed email address. Call placed to helen Ricardo informing of the above and that an email would be sent to his/her listed email address. The following email sent per above: Dear John Velázquez to the [facility]! Please note that no one will be calling you to set up a new primary care appointment. These are generated requests! Please call [facility] at [phone]. Inform them that you are a transferring and that you would like the next available appointment with a [place] provider. Please read the attached general information for those traveling and relocating. Feel free to call me with any questions you may have. Sincerely, Anahi Will update TVC consult with scheduling efforts. /tamera/ ANAHI CHILDRESS TRAVELING COORDINATOR Signed: 01/06/2025 10:23 ANAHI CHILDRESS [facility]
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
--- OUTSIDE RECORDS SUMMARY | 2025-03-22 22:02 | XMS_ITS | Encounter Summary ---
Author Name [facility] [facility] [place] [facility] [place] [facility] [place] Address [address] [place] [address] Care Team Providers Care Third Loader Name Role Phone VERNA BARRERA Primary Care [...] AID ([place]) Oct 23, 2016 MEDICAI D [id number] GERDA NUNES PATIENT Selected Encounter This section includes the information on record at [place] for the Encounter. Date/Time Encounter Type Encounter Description Reason Provider Source Jul 17, 2024 12:19 PM IP/OBS CONSLTJ NEW/EST HI 80 NEUROLOGY ICD-10-CM M79.669 Pain in unspecified lower leg JOEY JC Encounter Template Text not used by [place] Assessments - Encounter Diagnoses This section includes the primary and secondary diagnoses documented for the Encounter. Date/Time Primary/Secondary Diagnosis Diagnosis Name Provider Source Jul 17, 2024 02:02 PM PRIMARY Pain in unspecified lower leg JOEY JC [facility] Plan of Treatment: Future Appointments (+ 6 months) and Future Tests (+/- 45 days) The Plan of Treatment section includes future care activities for the [facility] This section includes future appointments and future orders which are active, pending or scheduled. Future Appointments This section includes appointments that were scheduled to occur 6 months from the date of the Encounter, up to a maximum of 20 appointments. The data comes from all [facility]. Appointment Date/Time Appointment Type Appointme nt Facility Name Jul 22, 2024 10:00 AM AMBULATORY - MEDICINE [facility] Oct 22, 2024 11:30 AM AMBULATORY - MEDICINE [facility] Nov 07, 2024 08:41 AM AMBULATORY - MEDICINE [facility] Nov 12, 2024 10:30 AM AMBULATORY - MEDICINE [facility] Nov 14, 2024 09:30 AM AMBULATORY MEDICINE [facility] Nov 26, 2024 12:30 PM AMBULATORY - SURGERY [facility] Dec 17, 2024 06:28 PM AMBULATORY - MEDICINE [facility] Jan 02, 2025 01:00 PM AMBULATORY - PSY[facility]IATRY [facility] Jan 07, 2025 11:30 AM AMBULATORY - MEDICINE [facility] Active, Pending, and Scheduled Orders This section includes a listing of several types of active, pending, and scheduled orders, including clinic medications orders, diagnostic test orders, procedure orders and consult orders; where the start date of the order is 45 days before the date of the Encounter or 45 days after the date of theEncounter. The data comes from all [facility]. Test Date/Time Test Type Test Details Facility Name Jul 11, 2024 04:51 PM Laboratory - Chemi stry Order TSH W/ REFLEX FT4 (STL) GREEN LI-HEP PLASMA [facility] Jul 12, 2024 12:00 AM Laboratory - Chemi stry Order HAPTOGLOBIN (STL) GOLD/RED SST SERUM SP [facility] Jul 12, 2024 12:00 AM Laboratory - Chemi stry Order LDH GREEN LI/HEP BLD/PLAS PLASMA SP [facility] Jul 12, 2024 12:00 AM Laboratory - Chemi stry Order FERRITIN GOLD/RED SST SERUM SP [facility] Jul 12, 2024 12:00 AM Laboratory - Chemi stry Order RETIC RATIO BLOOD SP ONCE [facility] Jul 12, 2024 12:00 AM Laboratory - Chemi stry Order IRON/TIBC PROFILE GOLD/RED SST SERUM SP [facility] Jul 12, 2024 12:00 AM Laboratory - Chemi stry Order B12 GOLD/RED SST SERUM SP [facility] Jul 12, 2024 12:00 AM Laboratory - Chemi stry Order FOLATE (STL-MA) GOLD/RED SST SERUM SP [facility] Jul 16, 2024 11:36 PM Laboratory - Chemi stry Order MRSA SURVL NARES DNA NARES WC [facility] Lab Results: +/- 30 days of [...] Type Comment Jul 20, 2024 11:28 AM [facility] GLUCOSE,BLOOD-poct (STL) BLOOD Specimen Type: BLOOD Comment: Test Performed by: [id number] Meter #: [id number] Ordering Provider: KRYSTIAN KUMARI Report Released Date/Time: Jul 20, 2024 11:50 AM Reporting Lab: [facility] [address] [facility] [address] Performing Lab: [facility] [address] [facility] [address] GLUCOSE,BLOOD-poct (STL) 78 mg/dL 72-99 Jul 20, 2024 08:02 AM [facility] MAGNESIUM PLASMA Specimen Type: PLASM A Comment: No hemolysis noted. Ordering Provider: MICHAEL FELIZ Report Released Date/Time: Jul 17, 2024 03:01 PM Reporting Lab: [facility] [address] [facility] [address] Performing Lab: [facility] [address] [facility] [address] MAGNESIUM 2.1 mg/dL 1.6-2.6 Jul 20, 2024 08:02 AM [facility] RENAL PANEL PLASMA Specimen Type: PLASM A Comment: No hemolysis noted. Ordering Provider: MICHAEL FELIZ Report Released Date/Time: Jul 17, 2024 03:01 PM Reporting Lab: [place] [address] [facility] [address] Performing Lab: [address] [address] CREATININE 0.81 mg/dL 0.6-1.1 UREA NITROGEN 16.7 mg/dL 9.0-25.0 GLUCOSE 99 mg/dL 72-99 SODIUM 142 meq/L 136-145 POTASSIUM 4.2 meq/L 3.5-5 CHLORIDE 108 meq/L H 98-107 CARBON DIOXIDE 25 meq/L 22-31 CALCIUM 9.6 mg/dL 8.4-10.4 PHOSPHOROUS 3.9 mg/dL 2.3-4.7 ALBUMIN 3.7 g/dL 3.4-5 EGFR (CKD-EPI 2020) 89.5 >60 Jul 19, 2024 04:23 PM [facility] GLUCOSE,BLOOD-poct (STL) BLOOD Specimen Type: BLOOD Comment: Test Performed by: [id number] Meter #: [id number] Ordering Provider: KRYSTIAN KUMARI Report Released Date/Time: Jul 19, 2024 04:54 PM Reporting Lab: [place] [address] [facility] [address] Performing Lab: [address] [address] GLUCOSE,BLOOD-poct (STL) 74 mg/dL 72-99 Jul 19, 2024 11:32 AM [facility] GLUCOSE,BLOOD-poct (STL) BLOOD Specimen Type: BLOOD Comment: Test Performed by: [id number] Meter #: [id number] Ordering Provider: QUOCMED Report Released Date/Time: Jul 19, 2024 11:55 AM Reporting Lab: [facility] [address] [facility] [address] Performing Lab: [facility] [address] [place] [address] GLUCOSE,BLOOD-poct (STL) 78 mg/dL 72-99 Jul 19, 2024 06:59 AM [facility] MAGNESIUM PLASMA Specimen Type: PLASM A Comment: No hemolysis noted. Ordering Provider: MICHAEL FELIZ Report Released Date/Time: Jul 17, 2024 03:01 PM Reporting Lab: [facility] [address] [place] [address] Performing Lab: [address] [address] MAGNESIUM 2.1 mg/dL 1.6-2.6 Jul 19, 2024 06:59 AM [facility] RENAL PANEL PLASMA Specimen Type: PLASM A Comment: No hemolysis noted. Ordering Provider: MICHAEL FELIZ Report Released Date/Time: Jul 17, 2024 03:01 PM Reporting Lab: [address] [address] Performing Lab: [address] [address] CREATININE 0.88 mg/dL 0.6-1.1 UREA NITROGEN 19.2 mg/dL 9.0-25.0 GLUCOSE 52 mg/dL L 72-99 SODIUM 143 meq/L 136-145 POTASSIUM 3.5 meq/L 3.5-5 CHLORIDE 108 meq/L H 98-107 CARBON DIOXIDE 26 meq/L 22-31 CALCIUM 10.0 mg/dL 8.4-10.4 PHOSPHOROUS 3.8 mg/dL 2.3-4.7 ALBUMIN 4.1 g/dL 3.4-5 EGFR (CKD-EPI 2020) 81.0 >60 Jul 19, 2024 06:59 AM [facility] CBC BLOOD Specimen Type: BLOOD No comment entered. Ordering Provider: MICHAEL FELIZ Report Released Date/Time: Jul 17, 2024 03:01 PM Reporting Lab: [place] [address] [facility] [address] Performing Lab: [place] [address] [facility] [address] WBC 4.6 10*3/uL 3.6-11.2 RBC 4.82 10*6/uL [...] 0.05 10*3/uL 0.00-0. 20 2024 06:35 AM [facility] MAGNESIUM PLASMA Specimen Type: PLASM A Comment: No hemolysis noted. Ordering Provider: MICHAEL FELIZ Report Released Date/Time: Jul 17, 2024 03:01 PM Reporting Lab: [place] [address] [facility] [address] Performing Lab: [place] [address] [facility] [address] MAGNESIUM 2.2 mg/dL 1.6-2.6 2024 06:35 AM [facility] FERRITIN SERUM Specimen Type: SERUM No comment entered. Ordering Provider: MICHAEL FELIZ Report Released Date/Time: Jul 17, 2024 03:01 PM Reporting Lab: [place] [address] [facility] [address] Performing Lab: [facility] [address] [facility] [address] FERRITIN 11.54 ng/mL 10-204 2024 06:35 AM [facility] IRON/TIBC PROFILE SERUM Specimen Type: SERUM No comment entered. Ordering Provider: MICHAEL FELIZ Report Released Date/Time: Jul 17, 2024 03:01 PM Reporting Lab: [facility] [address] [facility] [address] Performing Lab: [facility] [address] [facility] [address] TIBC 420 ug/dL 250-450 TRANSFERRIN 336 mg/dL 173-360 IRON SATURATION 11 L 20-50 IRON 45 ug/dL L 50-170 2024 06:35 AM [facility] B12 SERUM Specimen Type: SERUM No comment entered. Ordering Provider: MICHAEL FELIZ Report Released Date/Time: Jul 17, 2024 03:01 PM Reporting Lab: [facility] [address] [facility] [address] Performing Lab: [address] [address] B12 194 pg/mL L 213-816 2024 06:35 AM [facility] FOLATE (L-MA) SERUM Specimen Type: SERUM No comment entered. Ordering Provider: MICHAEL FELIZ Report Released Date/Time: Jul 17, 2024 03:01 PM Reporting Lab: [facility] [address] [facility] [address] Performing Lab: [facility] [address] [facility] [address] FOLATE (L-MA) 8.8 ng/mL 7-20 2024 06:35 AM [facility] VITAMIN D, 25-HYDROXY SERUM Specimen Type: SE RUM No comment entered. Ordering Provider: MICHAEL FELIZ Report Released Date/Time: Jul 17, 2024 03:49 PM Reporting Lab: [facility] [address] Performing Lab: [address] [address] VITAMIN D, 25-HYDROXY 39.3 ng/mL 30-96 2024 06:35 AM [facility] CBC BLOOD Specimen Type: BLOOD No comment entered. Ordering Provider: MICHAEL FELIZ Report Released Date/Time: Jul 17, 2024 03:01 PM Reporting Lab: [address] [address] Performing Lab: [address] [address] WBC 5.6 10*3/uL 3.6-11.2 RBC 4.41 10*6/uL [...] 0.05 10*3/uL 0.00-0. 20 2024 06:35 AM [facility] RENAL PANEL PLASMA Specimen Type: PLASM A Comment: No hemolysis noted. Ordering Provider: MICHAEL FELIZ Report Released Date/Time: Jul 17, 2024 03:01 PM Reporting Lab: [address] [address] Performing Lab: [facility] [address] [facility] [address] CREATININE 0.85 mg/dL 0.6-1.1 UREA NITROGEN 20.0 mg/dL 9.0-25.0 GLUCOSE 91 mg/dL 72-99 SODIUM 142 meq/L 136-145 POTASSIUM 4.2 meq/L 3.5-5 CHLORIDE 108 meq/L H 98-107 CARBON DIOXIDE 26 meq/L 22-31 CALCIUM 9.6 mg/dL 8.4-10.4 PHOSPHOROUS 4.9 mg/dL H 2.3-4.7 ALBUMIN 3.9 g/dL 3.4-5 EGFR (CKD-EPI 2020) 84.5 >60 Jul 17, 2024 08:37 PM [facility] VITAMIN B1 PLASMA Specimen Type: PLASM A Comment: Vitamin supplementation within 24 hours prior to blood draw may affect the accuracy of the results. This test was developed and its analytical performance characteristics have been determined by [facility] [place], [place]. It has not been cleared or approved by the U.S. Food and Drug Administration. This assay has been validated pursuant to the CLIA regulations and is used for clinical purposes. Test Performed by [facility], [facility], [address] [place] [address] Remi Dos Santos M.D., Ph.D., Director of Laboratories , CLIA [id number] Ordering Provider: MICHAEL FELIZ Report Released Date/Time: Jul 17, 2024 04:40 PM Reporting Lab: [address] [address] Performing Lab: [facility] [address] [facility] VITAMIN B1 13 nmol/L 8-30 Jul 17, 2024 06:48 AM [facility] TSH (MA-PB) SERUM Specimen Type: SERUM No comment entered. Ordering Provider: REMINGTON COTA Report Released Date/Time: Jul 17, 2024 03:52 AM Reporting Lab: [address] [address] Performing Lab: [address] [address] TSH 3.837 u[IU]/mL 0.47-5 Jul 17, 2024 06:48 AM [facility] BASIC METABOLIC PANEL PLASMA Specimen Type: PL ASMA Comment: No hemolysis noted. Ordering Provider: REMINGTON COTA Report Released Date/Time: Jul 16, 2024 11:36 PM Reporting Lab: [address] [address] Performing Lab: [address] [address] CREATININE 0.89 mg/dL 0.6-1.1 UREA NITROGEN 14.1 mg/dL 9.0-25.0 GLUCOSE 86 mg/dL 72-99 SODIUM 144 meq/L 136-145 POTASSIUM 3.5 meq/L 3.5-5 CHLORIDE 109 meq/L H 98-107 CARBON DIOXIDE 24 meq/L 22-31 CALCIUM 9.7 mg/dL 8.4-10.4 EGFR (CKD-EPI 2020) 80.4 >60 Jul 17, 2024 06:48 AM [facility] CBC BLOOD Specimen Type: BLOOD No comment entered. Ordering Provider: REMINGTON COTA Report Released Date/Time: Jul 16, 2024 11:36 PM Reporting Lab: [address] [address] Performing Lab: [address] [address] WBC 6.0 10*3/uL 3.6-11.2 RBC 4.55 10*6/uL [...] 0.00-0. 20 Jul 16, 2024 11:44 PM [facility] MRSA SURVL NARES DNA NARES Specimen [...] Jul 16, 2024 11:36 PM Reporting Lab: [address] [address] Performing Lab: [address] [address] MRSA SURVL NARES DNA Negative Negative Jul 16, 2024 04:15 PM [facility] TEST URINE (MA-STL) URINE Specimen Type: URINE No comment entered. Ordering Provider: ROBERTA RIVAS Report Released Date/Time: Jul 16, 2024 01:23 PM Reporting Lab: [address] [address] Performing Lab: [address] [address] Qualitative Test NEG NEGAT MISAEL Jul 16, 2024 04:15 PM [facility] URINALYSIS W/ CX REFLEX (STL-PB) URINE Specim en Type: URINE No comment entered. Ordering Provider: ROBERTA RIVAS Report Released Date/Time: Jul 16, 2024 01:23 PM Reporting Lab: [facility] [address] [place] [address] Performing Lab: [facility] [address] [place] [address] URINE COLOR Yellow Yellow U.BILIRUBIN Negative mg/dL [...] 1.026 1.005-1.029 Jul 16, 2024 02:30 PM [facility] CPK PLASMA Specimen Type: PLASM A Comment: No hemolysis noted. Ordering Provider: ROBERTA RIVAS Report Released Date/Time: Jul 16, 2024 01:23 PM Reporting Lab: [facility] [address] [place] [address] Performing Lab: [facility] [address] [place] [address] CPK 92 U/L 29-168 Jul 16, 2024 02:30 PM [facility] MAGNESIUM PLASMA Specimen Type: PLASM A Comment: No hemolysis noted. Ordering Provider: ROBERTA RIVAS Report Released Date/Time: Jul 16, 2024 01:23 PM Reporting Lab: [facility] [address] [place] [address] Performing Lab: [facility] [address] [place] [address] MAGNESIUM 2.0 mg/dL 1.6-2.6 Jul 16, 2024 02:30 PM [facility] PHOSPHOROUS PLASMA Specimen Type: PLASM A Comment: No hemolysis noted. Ordering Provider: ROBERTA RIVAS Report Released Date/Time: Jul 16, 2024 01:23 PM Reporting Lab: [address] [address] Performing Lab: [address] [address] PHOSPHOROUS 3.4 mg/dL 2.3-4.7 Jul 16, 2024 02:30 PM [facility] COMPREHENSIVE METABOLIC PANEL PLASMA Specimen Type: PLASMA Comment: No hemolysis noted. Ordering Provider: ROBERTA RIVAS Report Released Date/Time: Jul 16, 2024 01:23 PM Reporting Lab: [address] [address] Performing Lab: [address] [address] CREATININE 0.86 mg/dL 0.6-1.1 UREA NITROGEN 15.1 [...] 83.8 >60 Jul 16, 2024 02:30 PM [facility] CBC BLOOD Specimen Type: BLOOD No comment entered. Ordering Provider: ROBERTA RIVAS Report Released Date/Time: Jul 16, 2024 01:23 PM Reporting Lab: [address] [address] Performing Lab: [place] [address] [facility] [address] WBC 6.3 10*3/uL 3.6-11.2 RBC 4.76 10*6/uL [...] Source Jul 17, 2024 09:58 PM 1 [facility] Jul 17, 2024 09:10 PM 98.4 81 126/75 18 99 7 [facility] Jul 17, 2024 09:00 PM 8 [facility] Jul 17, 2024 08:50 PM 8 [facility] Jul 17, 2024 06:45 PM 0 [facility] Social History: Smoking Status (Most [...] 03:18 AM ORYX ADMIT TOBACCO SCREEN NO [facility] Tobacco Use History This section includes a history of the smoking, or tobacco-related health factors, that were collected on or before the date of the Encounter. The data comes from the [place] facility where the Encounter took place. Date/Time Smoking Status/Tobacco Use Comment F acility Nov 09, 2023 06:45 AM ORYX ADMIT TOBACCO SCREEN NO [facility] May 25, 2022 11:42 AM ORYX ADMIT TOBACCO SCREEN NO [facility] May 13, 2022 08:14 PM ORYX ADMIT TOBACCO SCREEN NO [facility] Apr 07, 2022 03:34 AM ORYX ADMIT TOBACCO SCREEN REFUSED [facility] Dec 20, 2021 12:44 PM ORYX ADMIT TOBACCO SCREEN NO [facility] Aug 23, 2021 08:22 PM ORYX ADMIT TOBACCO SCREEN NO [facility] Aug 12, 2021 06:24 PM ORYX ADMIT TOBACCO SCREEN NO [facility] May 12, 2008 06:16 PM LIFETIME NON-USER OF TOBACCO [facility] Jun 28, 2007 01:18 PM LIFETIME NON-USER OF TOBACCO [facility] May 03, 2006 10:56 AM LIFETIME NON-TOBACCO USER [facility] Dec 03, 2003 08:16 AM LIFETIME NON-TOBACCO USER [facility] Radiology Reports: +/- 30 days of [...] the Encounter. The data comes from all [place] treatment facilities. Date/Time Radiology Report Provider Source Jul 16, 2024 02:59 PM TIBIA & FIBULA,LEF T, 2 VIEWS: GERDA NUNES [facility] [id number] -1975 F Exm Date: JUL 16, 2024@14:59 Req Phys: ROBERTA RIVAS Loc: BIN-EMERGENCY DEPT 2ND SHIFT (R Img Loc: BIN-MAIN RADIOLOGY SUITE Service: Unknown Screen: Patient answered no [facility] [address] [place] [address] (Case [id number] COMPLETE) TIBIA & FIBULA,LEFT, 2 VIEWS (RAD Detailed) CPT:00242 Proc Modifiers : LEFT Reason for Study: left calf pain, rule out foregin body Clinical History: Report Status: Verified Date Reported: JUL 16, 2024 Date Verified: JUL 16, 2024 [employer] E-Sig:/ES/INDIO SHARMA Report: EXAMINATION: TIBIA & FIBULA,LEFT, [...] Primary Interpreting Staff: INDIO SHARMA, Diagnostic Radiologist ([employer]) /INDIO BRANDT [facility] Jul 16, 2024 02:47 PM US EXTREMITY VEINS UNILAT OR LTD: GERDA NUNES [facility] [id number] -1975 F Exm Date: JUL 16, 2024@14:47 Req Phys: ROBERTA RIVAS Loc: BIN-EMERGENCY DEPT 2ND SHIFT (R Img Loc: BIN-ULTRASOUND BIN Service: Unknown Screen: Patient answered no [facility] [address] [place] [address] (Case [id number] COMPLETE) US EXTREMITY VEINS UNILAT OR LTD (US Detailed) CPT:34936 Reason for Study: left leg pain Clinical History: Report Status: Verified Date Reported: JUL 16, 2024 Date Verified: JUL 16, 2024 [employer] E-Sig:/ES/INDIO SHARMA Report: Case [id number] US EXTREMITY VEINS UNILAT OR LTD Comparison: Left lower extremity ultrasound 11/09/2023. Findings: The left lower extremity deep veins are compressible throughout their course. No thrombi are visualized. Venous flow velocities demonstrate normal variation with respiration and augmentation. Impression: No evidence of deep venous thrombosis of the left lower extremity deep veins. Dictated by Kanika Lucero M.D. (assistant vice president). I, Indio Sharma, have reviewed the images and report and concur with these findings. Primary Interpreting Staff: INDIO SHARMA, Diagnostic Radiologist ([employer]) Primary Interpreting Resident: KANIKA LUCERO, Diagnostic Security Checker /INDIO ABARCA [facility] Jun 27, 2024 06:00 AM MRI SPINE THORACIC W/O CONT: GERDA NUNES [facility] [id number] -1975 F Exm Date: JUN 27, 2024@06:00 Req Phys: VERNA BARRERA Pat Loc: [facility] PACT 6 PCP (Req'g Lo Img Loc: OUTSIDE BIN-MRI Service: Unknown Screen: Patient answered no (Case [id number] COMPLETE) MRI SPINE THORACIC W/O CONT (MRI Detailed) CPT:83928 Reason for Study: OUTSIDE STUDY Clinical History: Report Status: Electronically Filed Date Reported: JUL 08, 2024 Report: This study was performed outside the [place] in another facility and images were uploaded into [employer]. The report has been scanned into [employer]. In order to upload images a case number was needed, therefore this is an administrative report. Impression: This study was performed outside the [place] in another facility and images were uploaded into [employer]. The report has been scanned into [employer]. In order to upload images a case number was needed, therefore this is an administrative report VERIFIED BY: / *ELECTRONICALLY FILED* [facility] Encounter Notes: All associated encounter notes This section contains the clinical notes associated to the Encounter. Date/Time Encounter Note(s) Provider Source Jul 17, 2024 12:19 PM NEUROLOGY CONSULT: LOCAL TITLE: NEUROLOGY INPATIENT CONSULT STL STANDARD TITLE: NEUROLOGY CONSULT DATE OF NOTE: JUL 17, 2024@12:19 ENTRY DATE: JUL 17, 2024@12:19:44 AUTHOR: JEROME MATTHEWS COSIGNER: PALMER JC URGENCY: STATUS: COMPLETED NEUROLOGY INPATIENT CONSULT STL Has ADDENDA NEUROLOGY CONSULT NOTE O Admission date: 07/17/24 O Hospitalization Day: 1 O Reason for admission: pain management. O Reason for consult: lef leg pain (chronic) >Subjectives: reports pain in left calf (specific area of skin), deep and mainly bone pain responds to IV duladid. No history of trauma or fall. >Hospital course: Ms. Nunes is a 48 Y F with medical history of Migraine, fibromyalgia, mood disorder, lumbar DDD?, Arthritis, presentes with left leg pain. pain involve left hip, leg and knee, started years ago with multuple ED visits for same complain most recent 07/08/24. Reports lack of response to PO pain medications including narcotics. From medicine note: Patient had an anterior and lateral compartment release [...] she was describing more PVD. To note was evaluated extensively for similar symptoms in the past in multiple different hospitals. had a spine MRI in 06/27/2024 which [...] and she recieved CTX in the ED. Patient is currently on the following impatient medications/doses: 1) HYDROMORPHONE INJ,SOLN IVP ONE-TIME 1MG/0.5ML 2) [...] 16) DIPHENHYDRAMINE CAP,ORAL PO QID PRN 25MG Objectives: Vital Signs: Pulse: 50 (07/17/2024 09:40) BP: 111/70 (07/17/2024 09:40) RESP: 18 (07/17/2024 09:40) TEMP: 98.8 F [37.1 C] (07/17/2024 09:40) SaO2: 94% (07/17/2024 09:40) Weight: 194.8 lb [88.36 kg] (07/16/2024 23:43) Height: 62 in [157.5 cm] (11/24/2023 15:33) Physical exam: General: No acute distress HEENT: normocephalic, atraumatic Neck: supple, trachea midline CV: regular rate rhythm, no murmurs Lung: clear to auscultation bilaterally, no crackles, no wheezes Abdomen: soft, non-tender, non distended bowel sounds present Ext: No deformity, no edema Neuro: Awake and alert, No gross focal neurological deficits Psych: Appropriate mood and affect Mental Status: Alert and oriented x 3, answers questions appropriately Speech clear, fluent and coherent, follows complex commands Cranial Nerves: VFFTC, no RAPD Pupils 4 mm -> 2 mm ERL, EOMI, no ptosis, nystagmus or diplopia Facial sensation intact in all three divisions bilaterally Face symmetric, hearing intact bilaterally, palate symmetric Uvula and tongue midline, shoulder shrug intact bilaterally Motor: Abnormal movements: tremor in all extremities. Tone: normal Bulk: normal Power: Delt Tri Bi FDS/FDP Interossei APB RUE 02/24 02/24 02/24 02/24 02/24 02/24 LUE 02/24 02/24 02/24 12/25 12/25 12/25 IP Hip Abd/Add Quad TA Ham EHL RLE 02/24 02/24; 02/24 02/24 02/24 02/24 02/24 LLE 02/24 02/24; 02/24 02/24 02/24 02/24 02/24 DTR: Bi Tri BR Pat Ach Toes R 2 2 2 2 2 Down L 2 2 2 2 2 Down Sensory: Intact LT, PP, temperature, vibration, and proprioception Coordination: FNF impaired. Gait/Balance: deferred. Investigations: Labs: SODIUM 144 mEq/L 07/17/2024 06:00 POTASSIUM 3.5 mEq/L 07/17/2024 06:00 CHLORIDE 109 H mEq/L 07/17/2024 06:00 UREA NITROGEN 14.1 mg/dL 07/17/2024 06:00 CREATININE 0.89 mg/dL 07/17/2024 06:00 CALCIUM 9.7 mg/dL 07/17/2024 06:00 PROTEIN 7.2 g/dL 07/16/2024 14:30 ALBUMIN 4.2 g/dL 07/16/2024 14:30 ALKALINE PHOSPHATASE 84 U/L 07/16/2024 14:30 ALT/SGPT 12 U/L 07/16/2024 14:30 AST/SGOT 15 U/L 07/16/2024 14:30 TOTAL BILIRUBIN 0.5 mg/dL 07/16/2024 14:30 CARBON DIOXIDE 24 mEq/L 07/17/2024 06:00 GLUCOSE 86 mg/dL 07/17/2024 06:00 EGFR (CKD-EPI 2020) 80.4 07/17/2024 06:00 MAGNESIUM 2.0 mg/dL (07/16/24 14:30) PHOSPHOROUS 3.4 mg/dL 07/16/2024 14:30 WBC 6.0 10*3/uL 07/17/2024 06:00 RBC 4.55 10*6/uL 07/17/2024 06:00 HGB 13.1 g/dL 07/17/2024 06:00 HCT 41.6 % 07/17/2024 06:00 MCV 91.4 fL 07/17/2024 06:00 MCH 28.8 pg 07/17/2024 06:00 MCHC 31.5 L g/dL 07/17/2024 06:00 RDW 13.2 % 07/17/2024 06:00 PLT 245 10*3/uL 07/17/2024 06:00 MPV 11.7 H fL 07/17/2024 06:00 NEUTROPHILS, AUTO % 48 % 07/17/2024 06:00 LYMPHOCYTES, AUTO % 42 % 07/17/2024 06:00 MONOCYTES, AUTO % 7 % 07/17/2024 06:00 EOSINOPHILS, AUTO % 3 % 07/17/2024 06:00 BASOPHILS, AUTO % 1 % 07/17/2024 06:00 NEUTROPHILS, ABSOLUTE 2.84 10*3/uL 07/17/2024 06:00 LYMPHOCYTES, ABSOLUTE 2.49 10*3/uL 07/17/2024 06:00 MONOCYTES, ABSOLUTE 0.40 10*3/uL 07/17/2024 06:00 EOSINOPHILS, ABSOLUTE 0.15 10*3/uL 07/17/2024 06:00 BASOPHILS, ABSOLUTE 0.07 10*3/uL 07/17/2024 06:00 Assessment : Ms. Nunes is a 48 Y F with medical history of mood disorder, chronic left leg pain with lack of response to PO pain medication, hypothyrodism presenting with left leg pain and being admitted for pain management. Patient had MRI spine and EMG/NCS both were normal. no underlying organic neurological disease is evident at this point Plan: - Recommend consulting Pain medicine for Chronic pain management. - Neurology team will sign off, please call us back with any concerns. Case discussed with Dr. Hilario. Jerome Matthews MD. Neurology resident PGY2. [facility] /tamera/ Jerome Matthews M.D. Neurology Resident [facility] Signed: 07/17/2024 13:12 /tamera/ Palmer Jc MD Neurology Staff Physician Cosigned: 07/17/2024 14:02 07/17/2024 ADDENDUM STATUS: COMPLETED [place] evaluated because of chronic leg pain since the . MRI of the lumbar spine last year was essentially unremarkable. EMG has been unremarkable. I am not sure that there is anything that neurology can offer at this point. Consider pain management. Thank you for this consult. /tamera/ Palmer Jc MD Neurology Staff Physician Signed: 07/17/2024 14:06 JEROME MATTHEWS [facility]
--- NOTE | 2025-03-22 22:12 | ED.BACK ---
HPI - Back Pain/Injury General Chief Complaint: Back Pain/Injury <Lisa Rosado PA-C - Last Filed: 03/23/25 03:57> Stated Complaint: Poss kidney stone-right flank pain-has HX <Lisa Rosado PA-C - Last Filed: 03/23/25 03:57> Time Seen by Provider: 03/22/25 21:33 <Lisa Rosado PA-C - Last Filed: 03/23/25 03:57> History of Present Illness HPI Narrative: 49-year-old female with a reported history of fibromyalgia, depression, anxiety, hysterectomy, gastric bypass, kidney stones presents to the emergency department for intermittent flank pain for the past 2 weeks. Patient states initially her symptoms started on her left flank and now have moved predominantly to her right flank and right lower quadrant. She states at the onset of symptoms she had dark brown urine with intermittent tinges of blood in her urine but that has largely resolved. She is endorsing urinary frequency and urgency but denies dysuria. She states she had a low-grade fever 100.8 a few days ago. Reports nausea, no vomiting. States she is concerned she may have a kidney stone. She took her prescribed Tylenol threes and aspirin without improvement. <Lisa Rosado PA-C - Last Filed: 03/23/25 03:57> Related Data Home Medications: Home Medications ?Medication ?Instructions ?Recorded ?Confirmed ?Last Taken ?Type cyanocobalamin (vitamin B-12) 1,000 mcg IM WEEKLY 09/05/23 03/23/25 03/04/25 History 1,000 mcg/mL injection solution duloxetine 60 mg capsule,delayed 60 mg PO HS 05/02/24 03/23/25 03/21/25 History release tizanidine 4 mg capsule 4 mg PO Q8H PRN muscle spasms 05/02/24 03/23/25 05/01/24 History trazodone 100 mg tablet 100 mg PO HS 05/02/24 03/23/25 03/21/25 History acetaminophen 300 mg-codeine 30 mg 1 tablet PO Q6H 03/23/25 03/23/25 03/22/25 History tablet diclofenac sodium 1 % topical gel 4 g topical QID PRN pain 03/23/25 03/23/25 Unknown History (Arthritis Pain (diclofenac)) diphenhydramine HCl 25 mg capsule 25 mg PO Q6H 03/23/25 03/23/25 03/22/25 History (Benadryl) gabapentin 300 mg capsule 300 mg PO TID 03/23/25 03/23/25 03/22/25 History levothyroxine 175 mcg tablet 175 mcg PO DAILY 03/23/25 03/23/25 03/22/25 History (Euthyrox) lidocaine 4 % topical gel 1 applic topical BID PRN pain 03/23/25 03/23/25 Unknown History propranolol 20 mg tablet 20 mg PO Q12H PRN anxiety 03/23/25 03/23/25 Unknown History simethicone 80 mg chewable tablet 80 mg PO QID PRN abdominal 03/23/25 03/23/25 Unknown History (Gas Relief (simethicone)) distention <Lisa Rosado PA-C - Last Filed: 03/23/25 03:57> Allergies/Adverse Reactions: Allergies Allergy/AdvReac Type Severity Reaction Status Date / Time amoxicillin Allergy Hives Verified 09/19/24 12:46 divalproex sodium (From Allergy Hives Verified 09/19/24 12:46 Depakote) NSAIDS (Non-Steroidal AdvReac Unknown Verified 09/19/24 12:46 Anti-Inflamma pregabalin AdvReac severe Verified 09/19/24 12:46 migraine <Lisa Rosado PA-C - Last Filed: 03/23/25 03:57> Review of Systems Review of Systems: All systems reviewed & are unremarkable except as noted in HPI and below <Lisa Rosado PA-C - Last Filed: 03/23/25 03:57> PMFSH Past Medical History Medical History: Medical History History of renal stone Morbid obesity Rectocele <Lisa Rosado PA-C - Last Filed: 03/23/25 03:57> Surgical History Surgical History: Surgical History Hx of cystoscopy History of section History of gastric bypass S/P gastric bypass H/O hysterectomy with oophorectomy <Lisa Rosado PA-C - Last Filed: 03/23/25 03:57> Family History Family History: Family History Mother Hodgkin disease Father Lung cancer Other Patient's father is Patient's mother is <Lisa Rosado PA-C - Last Filed: 03/23/25 03:57> Social History Social History: Social History Smoking status: Never smoker Alcohol intake: never Alcohol use details: denies Substance use: never Substance use type: does not use Do You Feel Safe in your Home?: Yes Lack of Transportation: No Lack of Food: Never True Current Housing: I Have Housing Concerned About Future Housing: No Difficulty Paying Gas/Electric Bills: No Difficulty Paying for Meds: No Currently Unemployed: No Education: High School Diploma/GED Difficulty w/ Childcare or Family Care: No Spiritual care concerns: No <Lisa Rosado PA-C - Last Filed: 03/23/25 03:57> Exam Narrative: GENERAL: Well-appearing, well-nourished, and in no acute distress. HEAD: Normocephalic, atraumatic. EYES: EOMI. ENT: Nares clear, no rhinorrhea or epistaxis. Mucous membranes moist. NECK: Supple. CHEST: Clear to auscultation. No respiratory distress. HEART: Regular rate and rhythm. No murmur heard. Normal peripheral pulses. ABDOMEN: Mild right-sided CVA tenderness, mild tenderness palpation of the right lower quadrant. No rebound or rigidity. Abdomen soft EXTREMITIES: Normal range of motion. No edema. SKIN: Warm, dry, no rash. NEURO: No focal deficits. Alert and oriented x3 <Lisa Rosado PA-C - Last Filed: 03/23/25 03:57> Course REHABILITATION THERAPIST/PA Physician Supervision This visit was performed by both a physician and an APC. I performed all aspects of the MDM as documented. <Jaguar Conway MD - Last Filed: 03/23/25 07:19> Vital Signs Vital signs: Vital Signs Temperature 36.8 C 03/22/25 18:15 Pulse Rate 104 H 03/22/25 18:15 Respiratory Rate 18 03/22/25 18:15 Blood Pressure 125/82 03/22/25 18:15 Pulse Oximetry 99 03/22/25 18:15 Oxygen Delivery Room Air 03/22/25 18:15 Temperature 36.6 C 03/23/25 04:37 Pulse Rate 60 03/23/25 04:37 Respiratory Rate 18 03/23/25 04:37 Blood Pressure 116/73 03/23/25 04:37 Pulse Oximetry 97 03/23/25 04:37 Oxygen Delivery Room Air 03/22/25 18:15 <Lisa Rosado PA-C - Last Filed: 03/23/25 03:57> Vital Signs Temperature 36.8 C 03/22/25 18:15 Pulse Rate 104 H 03/22/25 18:15 Respiratory Rate 18 03/22/25 18:15 Blood Pressure 125/82 03/22/25 18:15 Pulse Oximetry 99 03/22/25 18:15 Oxygen Delivery Room Air 03/22/25 18:15 Temperature 36.6 C 03/23/25 04:37 Pulse Rate 60 03/23/25 04:37 Respiratory Rate 18 03/23/25 04:37 Blood Pressure 116/73 03/23/25 04:37 Pulse Oximetry 97 03/23/25 04:37 Oxygen Delivery Room Air 03/22/25 18:15 <Jaguar Conway MD - Last Filed: 03/23/25 07:19> MDM - Back Pain/Injury MDM Narrative Medical decision making narrative: 49-year-old female presents to the emergency department for intermittent flank pain, predominantly now on the right, right lower quadrant abdominal pain and urinary frequency and urgency for the past 2 weeks. See HPI for further history. Triage vitals with tachycardia 104. Patient is afebrile nontoxic appearing. Exam is notable for the above. CBC without leukocytosis or anemia. Chemistry showed normal creatinine of 0.7. Lipase is elevated at 859. AST mildly elevated at 42 consistent with prior. Remainder of LFTs are unremarkable. UA with 21-50 white blood cells, 1+ leuk esterase and trace ketones, no hematuria or nitrates. Lactic normal at 0.9. CT abdomen pelvis shows right hydronephrotic changes with hydroureter with the stone seen in the lower ureter measuring 5 mm and possible stone seen distally measuring 6 mm cannot be excluded. Patient updated on results. She received IV fluids, Zofran, morphine with persistent pain and nausea. She then was given Reglan and Dilaudid with improvement, however does have persistent pain. Shared decision making regarding disposition. Given she has been taking Tylenol #3s at home without improvement, feel she would benefit from admission for pain control and consult with urology. Discussed with urologist, Dr. Rivera, who agrees to consult on admission. Agrees to starting antibiotics given reported history of fever and pyuria. Patient started on Rocephin. Advises keeping the patient NPO. Discussed with hospitalist, Dr. Bosch, who agrees to admission. <Lisa Rosado PA-C - Last Filed: 03/23/25 03:57> Lab Data Result diagrams: 03/23/25 04:55 03/23/25 04:55 <Lisa Rosado PA-C - Last Filed: 03/23/25 03:57> Labs: Lab Results 03/22/25 03/22/25 Range/Units 18:38 22:33 WBC 6.9 (4.5-10.0) K/mm3 RBC 4.61 (4.2-5.4) M/mm3 Hgb 14.0 (12.0-15.0) g/dL Hct 42.8 (37.0-47.0) % MCV 92.8 (80-100) fl MCH 30.4 (26-34) pg MCHC 32.7 (32-36) g/dl RDW 12.3 (11.5-14.5) % Plt Count 290 (150-375) k/mm3 MPV 10.2 (7.4-10.4) fl Immature Gran % (Auto) 0.3 (0-0.5) % Neut % (Auto) 50.6 (45.5-73.1) % Lymph % (Auto) 37.8 (18.3-44.2) % [place] % (Auto) 6.8 (2.6-8.5) % Eos % (Auto) 3.5 (0-4.4) % Baso % (Auto) 1.0 (0.2-1.2) % Lymph # (Auto) 2.62 (0.9-3.2) K/mm3 [place] # (Auto) 0.5 (0.1-0.6) K/mm3 Eos # (Auto) 0.2 (0-0.3) K/mm3 Baso # (Auto) 0.1 (0.0-0.1) K/mm3 Abs Immat Gran (auto) 0.02 (0.00-0.031) K/mm3 Absolute Neuts (auto) 3.5 (1.3-6.7) K/mm3 Absolute Nucleated RBC 0.000 (0.0-0.012) K/mm3 Nucleated RBC % 0.0 (0.0-0.2) % Sodium 139 (137-145) mmol/L Potassium 4.0 (3.4-5.0) mmol/L Chloride 105 (98-107) mmol/L Carbon Dioxide 26 (22-30) mmol/L Anion Gap 8 (4-12) mmol/L BUN 21 H (7-17) mg/dL Creatinine 0.70 (0.7-1.0) mg/dL Estim Creat Clear Calc 84 ml/min Estimated GFR > 60 (59 - ) Glucose 104 (65-110) mg/dL Lactic Acid 0.9 (0.7-2.0) mmol/L Calcium 9.7 (8.4-10.2) mg/dL Total Bilirubin 0.5 (0.2-1.3) mg/dL AST 42 H (14-36) U/L ALT 32 (6-35) U/L Alkaline Phosphatase 76 (38-126) U/L Total Protein 8.0 (6.3-8.2) g/dL Albumin 4.4 (3.5-5.1) g/dL Lipase 859 H (23-300) U/L Urine Color Yellow (Yellow) Urine Appearance Clear (Clear) Urine pH 5.5 (5.0-9.0) Ur Specific [place] 1.027 (1.001-1.035) Urine Protein Negative (Negative) mg/dL Urine Glucose (UA) Negative (Negative) mg/dL Urine Ketones Trace H (Negative) mg/dL Ur Blood (Man) Negative (Negative) Urine Nitrate Negative (Negative) Urine Bilirubin Negative (Negative) Urine Urobilinogen 1.0 (<2.0) mg/dL Leukocyte Esterase Rfl 1+ H (Negative) BEV/UL Urine RBC 0-2 (0-2) /hpf Urine WBC 21-50 H (0-3) /hpf Ur Squamous Epith Cells None seen (Few) /hpf Urine Bacteria None seen /hpf Urine Casts 0-2 <Lisa Rosado PA-C - Last Filed: 03/23/25 03:57> Lab Results 03/22/25 03/22/25 Range/Units 18:38 22:33 WBC 6.9 (4.5-10.0) K/mm3 RBC 4.61 (4.2-5.4) M/mm3 Hgb 14.0 (12.0-15.0) g/dL Hct 42.8 (37.0-47.0) % MCV 92.8 (80-100) fl MCH 30.4 (26-34) pg MCHC 32.7 (32-36) g/dl RDW 12.3 (11.5-14.5) % Plt Count 290 (150-375) k/mm3 MPV 10.2 (7.4-10.4) fl Immature Gran % (Auto) 0.3 (0-0.5) % Neut % (Auto) 50.6 (45.5-73.1) % Lymph % (Auto) 37.8 (18.3-44.2) % [place] % (Auto) 6.8 (2.6-8.5) % Eos % (Auto) 3.5 (0-4.4) % Baso % (Auto) 1.0 (0.2-1.2) % Lymph # (Auto) 2.62 (0.9-3.2) K/mm3 [place] # (Auto) 0.5 (0.1-0.6) K/mm3 Eos # (Auto) 0.2 (0-0.3) K/mm3 Baso # (Auto) 0.1 (0.0-0.1) K/mm3 Abs Immat Gran (auto) 0.02 (0.00-0.031) K/mm3 Absolute Neuts (auto) 3.5 (1.3-6.7) K/mm3 Absolute Nucleated RBC 0.000 (0.0-0.012) K/mm3 Nucleated RBC % 0.0 (0.0-0.2) % Sodium 139 (137-145) mmol/L Potassium 4.0 (3.4-5.0) mmol/L Chloride 105 (98-107) mmol/L Carbon Dioxide 26 (22-30) mmol/L Anion Gap 8 (4-12) mmol/L BUN 21 H (7-17) mg/dL Creatinine 0.70 (0.7-1.0) mg/dL Estim Creat Clear Calc 84 ml/min Estimated GFR > 60 (59 - ) Glucose 104 (65-110) mg/dL Lactic Acid 0.9 (0.7-2.0) mmol/L Calcium 9.7 (8.4-10.2) mg/dL Total Bilirubin 0.5 (0.2-1.3) mg/dL AST 42 H (14-36) U/L ALT 32 (6-35) U/L Alkaline Phosphatase 76 (38-126) U/L Total Protein 8.0 (6.3-8.2) g/dL Albumin 4.4 (3.5-5.1) g/dL Lipase 859 H (23-300) U/L Urine Color Yellow (Yellow) Urine Appearance Clear (Clear) Urine pH 5.5 (5.0-9.0) Ur Specific [place] 1.027 (1.001-1.035) Urine Protein Negative (Negative) mg/dL Urine Glucose (UA) Negative (Negative) mg/dL Urine Ketones Trace H (Negative) mg/dL Ur Blood (Man) Negative (Negative) Urine Nitrate Negative (Negative) Urine Bilirubin Negative (Negative) Urine Urobilinogen 1.0 (<2.0) mg/dL Leukocyte Esterase Rfl 1+ H (Negative) BEV/UL Urine RBC 0-2 (0-2) /hpf Urine WBC 21-50 H (0-3) /hpf Ur Squamous Epith Cells None seen (Few) /hpf Urine Bacteria None seen /hpf Urine Casts 0-2 <Jaguar Conway MD - Last Filed: 03/23/25 07:19> Discharge Plan Discharge Clinical Impression: Abnormal urinalysis, Ureteral calculus <Lisa Rosado PA-C - Last Filed: 03/23/25 03:57> Patient Disposition: Still a Patient <Lisa Rosado PA-C - Last Filed: 03/23/25 03:57> Condition: Stable <Lisa Rosado PA-C - Last Filed: 03/23/25 03:57>
[2025-03-22] MEDS: SODIUM CHLORIDE 0.9% IV 1,000 ML 999 ML IV CONT (22:30)
[2025-03-22] MEDS: MORPHINE SULFATE (*CRX) 4 MG/ML INJ IV PUSH (22:33)
[2025-03-22] MEDS: ONDANSETRON INJ 4 MG/2 ML VIAL IV PUSH (22:33)
[2025-03-22 22:39] LABS: Basophils Absolute Auto 0.1 K/mm3 (0.0-0.1); Eosinophils Absolute Auto 0.2 K/mm3 (0-0.3); Eosinophils Percent Auto 3.5 % (0-4.4); Hematocrit 42.8 % (37.0-47.0); Immature Granulocyte Absolute 0.02 K/mm3 (0.00-0.031); Immature Granulocyte Percent A 0.3 % (0-0.5); Lymphocytes Absolute Auto 2.62 K/mm3 (0.9-3.2); Lymphocytes Percent Auto 37.8 % (18.3-44.2); Mean Corpuscular HGB Conc 32.7 g/dl (32-36); Mean Corpuscular Hemoglobin 30.4 pg (26-34); Mean Corpuscular Volume 92.8 fl (80-100); Mean Platelet Volume 10.2 fl (7.4-10.4); Monocytes Absolute Auto 0.5 K/mm3 (0.1-0.6); Monocytes Percent Auto 6.8 % (2.6-8.5); Neutrophils Absolute Auto 3.5 K/mm3 (1.3-6.7); Neutrophils Percent Auto 50.6 % (45.5-73.1); Platelet Count Result 290 k/mm3 (150-375); Red Blood Count 4.61 M/mm3 (4.2-5.4); Red Cell Distribution Width 12.3 % (11.5-14.5); White Blood Count 6.9 K/mm3 (4.5-10.0)
[2025-03-22 22:53] LABS: Alanine Aminotransferase 32 U/L (6-35); Albumin Level 4.4 g/dL (3.5-5.1); Alkaline Phosphatase 76 U/L (38-126); Anion Gap 8 mmol/L (4-12); Aspartate Amino Transferase 42 U/L (14-36); Bilirubin,Total 0.5 mg/dL (0.2-1.3); Blood Urea Nitrogen 21 mg/dL (7-17); Calcium 9.7 mg/dL (8.4-10.2); Carbon Dioxide 26 mmol/L (22-30); Chloride 105 mmol/L (98-107); Estimated CRCL calculation 84 ml/min; Estimated Glomerular Filt Rate > 60; Glucose 104 mg/dL (65-110); Lactic Acid Reflex 0.9 mmol/L (0.7-2.0); Lipase 859 U/L (23-300); Sodium 139 mmol/L (137-145)
[2025-03-22 23:30] VITALS: BP 130/76; PULSE 96; RESP 16; O2SAT 100
[2025-03-23] VITALS (10 sets, daily range): BP systolic 116–137; BP diastolic 64–81; PULSE 51–91; RESP 16–20; TEMP 36.2–36.8; O2SAT 90–100; BMI 34.6
[2025-03-23] MEDS: METOCLOPRAMIDE HCL INJ 10 MG/2 ML VIAL IV PUSH (00:05)
[2025-03-23] MEDS: HYDROmorphone HCL INJ (*CRX) 2 MG/ML VIAL 0.5 MG IV PUSH ×5 (00:07→20:50)
--- NOTE | 2025-03-23 02:39 | ADMGEN ---
This patient, Rebeca Huber, was admitted to 2 Medical Room 257-01. Patient/family oriented to hospital policies and general routines including ID bracelet, bed and alarms, visiting hours, pain management, procedures, bathroom and other care routines, personal items, smoking policy, room service/diet, and visiting hours. Information on how to activate the Rapid Response Team has been discussed. Patient/Family are encouraged to report perceived risks to care and to ask questions if they do not understand what they are told or what they should do.
--- NOTE | 2025-03-23 04:37 | P.HP_ITS ---
H&P: HPI History of Present Illness Date/Time: 03/23/25 04:37 Chief Complaint: Right flank pain Narrative: Mr. Huber is a 49-year-old female with a history of fibromyalgia, depression, anxiety, history of hysterectomy, gastric bypass, kidney stones x2 status post ureteroscopy with stent placement with Dr. Gonsales. The patient presents to [facility] ER on 03/22/2025 with a complaint of intermittent flank pain on her left which has migrated to her right for 2 weeks now. At the onset of symptoms she had dark brown urine however that has resolved. Admits to persistent urinary frequency but no pain upon urination. She had a low-grade fever 100.8? F a few days prior to admission. She denies any nausea or vomiting. She took Tylenol 3 in aspirin without any alleviation. ER workup revealed a hemodynamically stable female with a temperature 97.8? F. normal white count, hemoglobin 14.0, platelets 290, Chem panel largely unremarkable. Urinalysis with trace ketones, 1+ leukocyte esterase, WBC 21-50, CT abdomen pelvis without contrast demonstrating stone in the right lower ureter with moderate right hydronephrotic changes. She was given ceftriaxone, 1 L normal saline bolus, morphine 4 mg IV x1, Dilaudid 0.5 mg IV x1, Reglan, Zofran. On repeat examination she was resting comfortably and denying any significant pain. Urologist Dr. Rivera was contacted from the ER and agreed to see the patient in consultation. Agreed to starting antibiotics. S at the patient be kept NPO. Review of Systems Review of Systems: All systems reviewed & are unremarkable except as noted in HPI and below (HPI) [facility] Past Medical History Medical History History of renal stone Morbid obesity Rectocele Surgical History Surgical History Hx of cystoscopy History of section History of gastric bypass S/P gastric bypass H/O hysterectomy with oophorectomy Family History Family History Mother Hodgkin disease Father Lung cancer Other Patient's father is Patient's mother is Social History Social History Smoking status: Never smoker Alcohol intake: never Alcohol use details: denies Substance use: never Substance use type: does not use Do You Feel Safe in your Home?: Yes Lack of Transportation: No Lack of Food: Never True Current Housing: I Have Housing Concerned About Future Housing: No Difficulty Paying Gas/Electric Bills: No Difficulty Paying for Meds: No Currently Unemployed: No Education: High School Diploma/GED Difficulty w/ Childcare or Family Care: No Spiritual care concerns: No Meds Home Medications and Allergies Home Medications ?Medication ?Instructions ?Recorded ?Confirmed ?Type cyanocobalamin (vitamin B-12) 1,000 mcg IM WEEKLY 09/05/23 03/23/25 History 1,000 mcg/mL injection solution duloxetine 60 mg capsule,delayed 60 mg PO HS 05/02/24 03/23/25 History release tizanidine 4 mg capsule 4 mg PO Q8H PRN muscle spasms 05/02/24 03/23/25 History trazodone 100 mg tablet 100 mg PO HS 05/02/24 03/23/25 History acetaminophen 300 mg-codeine 30 mg 1 tablet PO Q6H 03/23/25 03/23/25 History tablet diclofenac sodium 1 % topical gel 4 g topical QID PRN pain 03/23/25 03/23/25 History (Arthritis Pain (diclofenac)) diphenhydramine HCl 25 mg capsule 25 mg PO Q6H 03/23/25 03/23/25 History (Benadryl) gabapentin 300 mg capsule 300 mg PO TID 03/23/25 03/23/25 History levothyroxine 175 mcg tablet 175 mcg PO DAILY 03/23/25 03/23/25 History (Euthyrox) lidocaine 4 % topical gel 1 applic topical BID PRN pain 03/23/25 03/23/25 History propranolol 20 mg tablet 20 mg PO Q12H PRN anxiety 03/23/25 03/23/25 History simethicone 80 mg chewable tablet 80 mg PO QID PRN abdominal 03/23/25 03/23/25 History (Gas Relief (simethicone)) distention Allergies Allergy/AdvReac Type Severity Reaction Status Date / Time amoxicillin Allergy Hives Verified 09/19/24 12:46 divalproex sodium (From Allergy Hives Verified 09/19/24 12:46 Depakote) NSAIDS (Non-Steroidal AdvReac Unknown Verified 09/19/24 12:46 Anti-Inflamma pregabalin AdvReac severe Verified 09/19/24 12:46 migraine Vital Signs Vital Signs - 24 hr 03/22/25 18:15 03/22/25 23:30 03/23/25 00:59 Temperature 98.2 F Pulse Rate 104 H 96 91 Respiratory Rate 18 16 16 Blood Pressure 125/82 130/76 125/81 Pulse Oximetry 99 100 99 Oxygen Delivery Room Air 03/23/25 02:10 03/23/25 02:39 03/23/25 03:49 Temperature 97.5 F L Pulse Rate 88 51 L 88 Respiratory Rate 19 16 19 Blood Pressure 123/75 126/64 123/75 Pulse Oximetry 99 100 99 Oxygen Delivery Exam Const: General: comfortable and no acute distress Other: A&O x3 HENMT: Mouth: Yes moist mucous membranes Eyes: Pupils: Equal, round and reactive pupils present Neck: Neck: supple Resp: Effort & Inspection: normal respiratory effort Auscultation: clear to auscultation bilaterally Cardio: Rate: regular rate Rhythm: regular rhythm GI: Inspection: non-distended GI Palp: Yes Soft to palpation and No Tenderness to palpation present (GI) Auscultation: normal bowel sounds : General: Yes bladder normal to palpation Neuro: Motor exam (neuro): 5/5 motor strength present throughout Sensory Exam: normal sensation Extrem: General: no edema H&P: Results Labs Labs: Short CBC 03/22/25 Range/Units 22:33 WBC 6.9 (4.5-10.0) K/mm3 Hgb 14.0 (12.0-15.0) g/dL Hct 42.8 (37.0-47.0) % Plt Count 290 (150-375) k/mm3 BMP 03/22/25 22:33 Sodium 139 Potassium 4.0 Chloride 105 Carbon Dioxide 26 BUN 21 H Creatinine 0.70 Glucose 104 Calcium 9.7 Liver Function 03/22/25 Range/Units 22:33 Total Bilirubin 0.5 (0.2-1.3) mg/dL AST 42 H (14-36) U/L ALT 32 (6-35) U/L Alkaline Phosphatase 76 (38-126) U/L Albumin 4.4 (3.5-5.1) g/dL Urine 03/22/25 Range/Units 18:38 Urine Color Yellow (Yellow) Urine Appearance Clear (Clear) Urine pH 5.5 (5.0-9.0) Ur Specific [place] 1.027 (1.001-1.035) Urine Protein Negative (Negative) mg/dL Urine Glucose (UA) Negative (Negative) mg/dL Assessment and Plan Assessment and plan (1) Ureteral calculus: Code(s): N20.1 - Calculus of ureter Status: Acute Plan NPO. Normal saline at 100 cc/hour. Continue ceftriaxone. Follow-up urine c ulture. Continue pain regimen p.r.n.. Tamsulosin 0.4 mg p.o. q.day. Urology to see. SCDs. Full code. Hospitalist MIPS Advance Care Plan I have confirmed that the patient's Advanced Care Plan is present, code status is documented, or surrogate decision maker is listed in patient medical record.: Yes Medication Reconciliation I have utilized all available resources to obtain, update and review the patients current medications (includes all prescriptions, OTC, herbals, cannabis, and nutritional supplements).: Yes
[2025-03-23] MEDS: diphenhydrAMINE HCl CAP 25 MG CAPSULE PO (04:47)
[2025-03-23] MEDS: LEVOTHYROXINE SODIUM 100 MCG TABLET PO (04:47)
[2025-03-23] MEDS: SODIUM CHLORIDE 0.9% IV 1,000 ML 100 ML IV CONT ×2 (04:48→16:55)
[2025-03-23] MEDS: LEVOTHYROXINE SODIUM 75 MCG TABLET PO (04:48)
[2025-03-23] MEDS: TAMSULOSIN HCL 0.4 MG CAPSULE PO (04:48)
[2025-03-23 05:30] LABS: Basophils Absolute Auto 0.1 K/mm3 (0.0-0.1); Basophils Percent Auto 1.1 % (0.2-1.2); Eosinophils Absolute Auto 0.3 K/mm3 (0-0.3); Eosinophils Percent Auto 3.9 % (0-4.4); Hematocrit 40.6 % (37.0-47.0); Hemoglobin 12.9 g/dL (12.0-15.0); Immature Granulocyte Absolute 0.02 K/mm3 (0.00-0.031); Immature Granulocyte Percent A 0.3 % (0-0.5); Lymphocytes Absolute Auto 3.01 K/mm3 (0.9-3.2); Mean Corpuscular HGB Conc 31.8 g/dl (32-36); Mean Corpuscular Hemoglobin 30.8 pg (26-34); Mean Corpuscular Volume 96.9 fl (80-100); Mean Platelet Volume 10.4 fl (7.4-10.4); Monocytes Absolute Auto 0.5 K/mm3 (0.1-0.6); Monocytes Percent Auto 7.3 % (2.6-8.5); Neutrophils Absolute Auto 3.1 K/mm3 (1.3-6.7); Neutrophils Percent Auto 44.4 % (45.5-73.1); Platelet Count Result 229 k/mm3 (150-375); Red Blood Count 4.19 M/mm3 (4.2-5.4); Red Cell Distribution Width 12.4 % (11.5-14.5)
[2025-03-23 05:39] LABS: Prothrombin Time 13.4 Seconds (11.1-14.7)
[2025-03-23 05:42] LABS: Alanine Aminotransferase 25 U/L (6-35); Albumin Level 3.6 g/dL (3.5-5.1); Alkaline Phosphatase 58 U/L (38-126); Anion Gap 7 mmol/L (4-12); Aspartate Amino Transferase 31 U/L (14-36); Bilirubin,Total 0.4 mg/dL (0.2-1.3); Blood Urea Nitrogen 19 mg/dL (7-17); Carbon Dioxide 25 mmol/L (22-30); Chloride 108 mmol/L (98-107); Estimated CRCL calculation 93 ml/min; Estimated Glomerular Filt Rate > 60; Glucose 91 mg/dL (65-110); Lipase 169 U/L (23-300); Magnesium 2.1 mg/dL (1.6-2.3); Potassium 3.7 mmol/L (3.4-5.0); Sodium 140 mmol/L (137-145)
--- NOTE | 2025-03-23 07:40 | PM.IMPN ---
Progress Note: A&P Assessment and Plan (1) Ureteral calculus: Code(s): N20.1 - Calculus of ureter Status: Acute Assessment and Plan: Abd/pelvis CT: 1. Stone in the right lower ureter with moderate right hydronephrotic changes. -NPO, IVF, pain medication PRN, tamsulosin 0.4mg daily -->Pt reporting pain tolerable with pain meds and diphenhydramine -Continue ceftriaxone -UC & BC pending -Uro consult pending -Straining urine ordered Plan SCDs. Full code. Subjective Date/time seen: 03/23/25 0848 Interval history: Pt is a 49-year-old female with a history of fibromyalgia, depression, anxiety, hysterectomy, gastric bypass, kidney stones x2 status post ureteroscopy with stent placement with Dr. Gonsales who presents to the ED on 03/22/2025 with a complaint of intermittent flank pain on her left which has migrated to her right for 2 weeks now. At the onset of symptoms she had dark brown urine however that has resolved. Admits to persistent urinary frequency but no pain upon urination. She had a low-grade fever 100.8? F a few days prior to admission. She denies any nausea or vomiting. She took Tylenol 3 and aspirin without any alleviation. ER workup revealed a hemodynamically stable female with a temperature 97.8? F. normal white count, hemoglobin 14.0, platelets 290, Chem panel largely unremarkable. Urinalysis with trace ketones, 1+ leukocyte esterase, WBC 21-50, CT abdomen pelvis without contrast demonstrating stone in the right lower ureter with moderate right hydronephrotic changes. She was given ceftriaxone, 1 L normal saline bolus, morphine 4 mg IV x1, Dilaudid 0.5 mg IV x1, Reglan, Zofran. On repeat examination she was resting comfortably and denying any significant pain. Urologist Dr. Rivera was contacted from the ER and agreed to see the patient in consultation. Agreed to starting antibiotics and the patient be kept NPO. 03/23: Upon examination today, pt reporting pain mostly in her R flank, some discomfort in her L but that has decreased since onset a few days ago. Pt reporting mild discomfort when she voids, but no dysuria. Denies any other sx including CP, SOB, or any other urinary sx. Pt mainly c/o of itchiness after getting IV pain meds, diphenhydramine adjusted to help with this. Pt remains NPO pending urology consult for plan. Review of Systems Review of Systems: All systems reviewed & are unremarkable except as noted in HPI and below (HPI) Exam Const: General: no acute distress Other: A&O x4 HENMT: Mouth: Yes moist mucous membranes Eyes: Pupils: Equal, round and reactive pupils present Neck: Neck: supple and no JVD Resp: Effort & Inspection: normal respiratory effort Auscultation: clear to auscultation bilaterally Cardio: Rate: regular rate Rhythm: regular rhythm GI: Inspection: non-distended Auscultation: normal bowel sounds : General: Yes bladder normal to palpation Bimanual exam- vagina & uterus: bladder normal to palpation Other: +R CVA TTP, none to L Neuro: Cranial nerves: Yes Equal, round and reactive pupils present Motor exam (neuro): Normal motor muscle tone present throughout Sensory Exam: normal sensation Extrem: General: no edema Objective Data Vital Signs Vital Signs: Vital Signs - 24 hr 03/22/25 18:15 03/22/25 23:30 03/23/25 00:59 Temperature 98.2 F Pulse Rate 104 H 96 91 Respiratory Rate 18 16 16 Blood Pressure 125/82 130/76 125/81 Pulse Oximetry 99 100 99 Oxygen Delivery Room Air 03/23/25 02:10 03/23/25 02:39 03/23/25 03:49 Temperature 97.5 F L Pulse Rate 88 51 L 88 Respiratory Rate 19 16 19 Blood Pressure 123/75 126/64 123/75 Pulse Oximetry 99 100 99 Oxygen Delivery 03/23/25 04:37 Temperature 97.8 F Pulse Rate 60 Respiratory Rate 18 Blood Pressure 116/73 Pulse Oximetry 97 Oxygen Delivery Intake/Output Intake/Output: Intake & Output 03/20/25 03/21/25 03/22/25 03/23/25 23:59 23:59 23:59 23:59 Intake Total 1000 Output Total 0 Balance 1000 Meds/Results Medications: Active Medications Generic Name Dose Route Start Last Admin Trade Name Freq PRN Reason Stop Dose Admin Diphenhydramine HCl 25 mg 03/23/25 06:00 03/23/25 04:47 Diphenhydramine Hcl Cap 25 Mg Capsule PO 25 mg Q6HR EZEQUIEL Administration Duloxetine HCl 60 mg 03/23/25 21:00 Duloxetine Hcl 60 Mg Capsule. PO [facility] Gabapentin 300 mg 03/23/25 09:00 Gabapentin 300 Mg Capsule PO TID [facility]1983 Hydromorphone HCl 0.5 mg 03/23/25 01:30 03/23/25 07:36 Hydromorphone Hcl Inj (*Crx) 2 Mg/Ml Vial IV PUSH 0.5 mg Q4H PRN Administration Pain Rated 7-10 Ceftriaxone Sodium 1 gm in 50 mls @ 100 mls/hr 03/24/25 01:00 Rocephin 1 Gm/Ns 50 Ml IVPB Q24H EZEQUIEL Sodium Chloride 1,000 mls @ 100 mls/hr 03/23/25 04:45 03/23/25 04:48 Normal Saline Iv IV CONT 100 mls/hr .Q10H EZEQUIEL Administration Levothyroxine Sodium 100 mcg 03/23/25 06:30 03/23/25 04:47 Levothyroxine Sodium 100 Mcg Tablet PO 100 mcg DAILY@0630 [facility] Administration Levothyroxine Sodium 75 mcg 03/23/25 06:30 03/23/25 04:48 Levothyroxine Sodium 75 Mcg Tablet PO 75 mcg DAILY@0630 [facility] Administration Ondansetron HCl 4 mg 03/23/25 01:30 Ondansetron Inj 4 Mg/2 Ml Vial IV PUSH Q4H PRN Nausea Simethicone 80 mg 03/23/25 04:35 Simethicone 80 Mg Tab.Chew PO QID PRN abdominal distention Tamsulosin HCl 0.4 mg 03/23/25 04:40 03/23/25 04:48 Tamsulosin Hcl 0.4 Mg Capsule PO 0.4 mg QAM [facility] Administration Trazodone HCl 100 mg 03/23/25 21:00 Trazodone Hcl 50 Mg Tablet PO [facility] Radiology Results: ITS Impressions Abdomen/Pelvis CT 03/22/25 23:14 IMPRESSION: 1. Stone in the right lower ureter with moderate right hydronephrotic changes. 2. No evidence of appendicitis, diverticulitis or intestinal obstruction. Labs Labs: Laboratory Results - last 24 hr 03/22/25 03/22/25 03/23/25 18:38 22:33 04:55 WBC 6.9 7.0 RBC 4.61 4.19 L Hgb 14.0 12.9 Hct 42.8 40.6 MCV 92.8 96.9 MCH 30.4 30.8 MCHC 32.7 31.8 L RDW 12.3 12.4 Plt Count 290 229 MPV 10.2 10.4 Immature Gran % (Auto) 0.3 0.3 Neut % (Auto) 50.6 44.4 L Lymph % (Auto) 37.8 43.0 [place] % (Auto) 6.8 7.3 Eos % (Auto) 3.5 3.9 Baso % (Auto) 1.0 1.1 Lymph # (Auto) 2.62 3.01 [place] # (Auto) 0.5 0.5 Eos # (Auto) 0.2 0.3 Baso # (Auto) 0.1 0.1 Abs Immat Gran (auto) 0.02 0.02 Absolute Neuts (auto) 3.5 3.1 Absolute Nucleated RBC 0.000 0.000 Nucleated RBC % 0.0 0.0 PT 13.4 INR 1.0 Sodium 139 140 Potassium 4.0 3.7 Chloride 105 108 H Carbon Dioxide 26 25 Anion Gap 8 7 BUN 21 H 19 H Creatinine 0.70 0.64 L Estim Creat Clear Calc 84 93 Estimated GFR > 60 > 60 Glucose 104 91 Lactic Acid 0.9 Calcium 9.7 9.0 Magnesium 2.1 Total Bilirubin 0.5 0.4 AST 42 H 31 ALT 32 25 Alkaline Phosphatase 76 58 Total Protein 8.0 6.0 L Albumin 4.4 3.6 Lipase 859 H 169 Urine Color Yellow Urine Appearance Clear Urine pH 5.5 Ur Specific [place] 1.027 Urine Protein Negative Urine Glucose (UA) Negative Urine Ketones Trace H Ur Blood (Man) Negative Urine Nitrate Negative Urine Bilirubin Negative Urine Urobilinogen 1.0 Leukocyte Esterase Rfl 1+ H Urine RBC 0-2 Urine WBC 21-50 H Ur Squamous Epith Cells None seen Urine Bacteria None seen Urine Casts 0-2 Quality VTE Prophylaxis VTE prophylaxis: mechanical ordered
[2025-03-23] MEDS: GABAPENTIN 300 MG CAPSULE PO ×2 (08:42→15:07)
[2025-03-23] MEDS: diphenhydrAMINE HCl INJ 50 MG/ML VIAL IV PUSH ×3 (09:18→20:50)
--- NOTE | 2025-03-23 11:57 | P.CONUR_ITS ---
Assessment and Plan Assessment and plan (1) Ureteral calculus: Code(s): N20.1 - Calculus of ureter Status: Acute Assessment and Plan: Reviewed with the patient with the presence of fever and urinalysis with pyuria treatment options in detail given her refractory pain she elects to place proceed with stent placement she understands we are not treating the stone today reviewed the pertinent risks and benefits of the procedure, the nature procedure and potential complications she has had stents before. Reviewed risk including but not limited to bleeding, infection, trauma surrounding/adjacent structures damage to the urinary tract inability place stent need for nephrostomy tube drainage in addition to anesthetic and positioning complications of heart attack, stroke, blood clots, pulmonary embolus disability and other obscene complications. Patient understands the stent may cause irritative voiding symptoms pain similar to kidney stone pain and she will need definitive stone management when infection is cleared. She voiced understanding is agreeable proceed. Note signed later in the evening as the EMR system was down. (2) Abnormal urinalysis: Code(s): R82.90 - Unspecified abnormal findings in urine Status: Acute Plan cystoscopy + stent placement, right retrograde Urology Consult Note HPI Date Seen: 03/23/25 Requesting Physician: Yecenia Bosch MD Primary Care Provider: [facility] Consult Narrative Narrative: Rebeca Huber is a 49 year old female fibromyalgia, depression, anxiety, hysterectomy, gastric bypass, kidney stones x2 status post ureteroscopy with stent placement with Dr. Gonsales who presents to the ED on 03/22/2025 with a complaint of intermittent flank pain on her left which has migrated to her right for 2 weeks now. She had associated nausea and vomitting. No hematuria or dysuria. Pain currently 7/10 despite narcotics. Fever at home Review of Systems 2 Review of Systems: All systems reviewed & are unremarkable except as noted in HPI and below Constitutional: Constitutional: Reports no additional constitutional complaints, Denies body ache(s) and Denies chills Eyes: Eyes: Reports as per HPI and Reports no additional eye complaints ENT: Reports Normal hearing present and Denies dysphagia Cardiovascular: Cardiovascular: Denies chest pain and Denies diaphoresis Respiratory: Respiratory: Denies cough, Denies hemoptysis and Denies dyspnea Gastrointestinal: Gastrointestinal: Reports abdominal pain Genitourinary: Genitourinary: Reports no additional female genitourinary complaints and Reports as per HPI Musculoskeletal: Musculoskeletal: Reports no additional musculoskeletal complaints Neurologic: Reports system reviewed and no additional complaints, except as documented and Reports as per HPI Psychiatric: Psychiatric: Reports no additional psychiatric complaints and Reports as per HPI [facility] Past Medical History Medical History History of renal stone Morbid obesity Rectocele Surgical History Surgical History Hx of cystoscopy History of section History of gastric bypass S/P gastric bypass H/O hysterectomy with oophorectomy Family History Family History Mother Hodgkin disease Father Lung cancer Other Patient's father is Patient's mother is Social History Social History Smoking status: Never smoker Alcohol intake: never Alcohol use details: denies Substance use: never Substance use type: does not use Do You Feel Safe in your Home?: Yes Lack of Transportation: No Lack of Food: Never True Current Housing: I Have Housing Concerned About Future Housing: No Difficulty Paying Gas/Electric Bills: No Difficulty Paying for Meds: No Currently Unemployed: No Education: High School Diploma/GED Difficulty w/ Childcare or Family Care: No Spiritual care concerns: No Meds Home Medications and Allergies Home Medications ?Medication ?Instructions ?Recorded ?Confirmed ?Type cyanocobalamin (vitamin B-12) 1,000 mcg IM WEEKLY 09/05/23 03/23/25 History 1,000 mcg/mL injection solution duloxetine 60 mg capsule,delayed 60 mg PO HS 05/02/24 03/23/25 History release tizanidine 4 mg capsule 4 mg PO Q8H PRN muscle spasms 05/02/24 03/23/25 History trazodone 100 mg tablet 100 mg PO HS 05/02/24 03/23/25 History acetaminophen 300 mg-codeine 30 mg 1 tablet PO Q6H 03/23/25 03/23/25 History tablet diclofenac sodium 1 % topical gel 4 g topical QID PRN pain 03/23/25 03/23/25 History (Arthritis Pain (diclofenac)) diphenhydramine HCl 25 mg capsule 25 mg PO Q6H 03/23/25 03/23/25 History (Benadryl) gabapentin 300 mg capsule 300 mg PO TID 03/23/25 03/23/25 History levothyroxine 175 mcg tablet 175 mcg PO DAILY 03/23/25 03/23/25 History (Euthyrox) lidocaine 4 % topical gel 1 applic topical BID PRN pain 03/23/25 03/23/25 History propranolol 20 mg tablet 20 mg PO Q12H PRN anxiety 03/23/25 03/23/25 History simethicone 80 mg chewable tablet 80 mg PO QID PRN abdominal 03/23/25 03/23/25 History (Gas Relief (simethicone)) distention Allergies Allergy/AdvReac Type Severity Reaction Status Date / Time amoxicillin Allergy Hives Verified 09/19/24 12:46 divalproex sodium (From Allergy Hives Verified 09/19/24 12:46 Depakote) NSAIDS (Non-Steroidal AdvReac Unknown Verified 09/19/24 12:46 Anti-Inflamma pregabalin AdvReac severe Verified 09/19/24 12:46 migraine Vital Signs Vital Signs - 24 hr 03/22/25 18:15 03/22/25 23:30 03/23/25 00:59 Temperature 36.8 C Pulse Rate 104 H 96 91 Respiratory Rate 18 16 16 Blood Pressure 125/82 130/76 125/81 Pulse Oximetry 99 100 99 Oxygen Delivery Room Air 03/23/25 02:10 03/23/25 02:39 03/23/25 03:49 Temperature 36.4 C L Pulse Rate 88 51 L 88 Respiratory Rate 19 16 19 Blood Pressure 123/75 126/64 123/75 Pulse Oximetry 99 100 99 Oxygen Delivery 03/23/25 04:37 03/23/25 08:00 Temperature 36.6 C Pulse Rate 60 Respiratory Rate 18 Blood Pressure 116/73 Pulse Oximetry 97 Oxygen Delivery Room Air Exam 2 Const: General: uncomfortable HENMT: Mouth: Yes moist mucous membranes abnormal Eyes: EOM: EOMs intact bilaterally Resp: Effort & Inspection: normal respiratory effort Auscultation: no wheezes GI: Inspection: non-distended GI Palp: Yes Soft to palpation and Yes Tenderness to palpation present (GI) : Bimanual exam- vagina & uterus: bladder normal to palpation Skin: General skin exam: normal color and no rashes or lesions noted Extrem: General: normal to inspection Psych: Speech and movement: Normal speech and movement present Results Labs 03/23/25 04:55 03/23/25 04:55 Labs: Short CBC 03/22/25 03/23/25 Range/Units 22:33 04:55 WBC 6.9 7.0 (4.5-10.0) K/mm3 Hgb 14.0 12.9 (12.0-15.0) g/dL Hct 42.8 40.6 (37.0-47.0) % Plt Count 290 229 (150-375) k/mm3 BMP 03/22/25 03/23/25 22:33 04:55 Sodium 139 140 Potassium 4.0 3.7 Chloride 105 108 H Carbon Dioxide 26 25 BUN 21 H 19 H Creatinine 0.70 0.64 L Glucose 104 91 Calcium 9.7 9.0 Liver Function 03/22/25 03/23/25 Range/Units 22:33 04:55 Total Bilirubin 0.5 0.4 (0.2-1.3) mg/dL AST 42 H 31 (14-36) U/L ALT 32 25 (6-35) U/L Alkaline Phosphatase 76 58 (38-126) U/L Albumin 4.4 3.6 (3.5-5.1) g/dL Urine 03/22/25 Range/Units 18:38 Urine Color Yellow (Yellow) Urine Appearance Clear (Clear) Urine pH 5.5 (5.0-9.0) Ur Specific [place] 1.027 (1.001-1.035) Urine Protein Negative (Negative) mg/dL Urine Glucose (UA) Negative (Negative) mg/dL Imaging My impression: right ureter stone + hydro
--- NOTE | 2025-03-23 12:54 | PC.NURSE ---
To OR per hospital bed.
--- NOTE | 2025-03-23 14:31 | PC.NURSE ---
Returned to room from OR per hospital bed.
[2025-03-23] MEDS: oxyCODONE HCL (*CRX) 5 MG TAB IR PO (15:07)
[2025-03-23] MEDS: traZODone HCL 50 MG TABLET 100 MG PO (20:48)
[2025-03-23] MEDS: DULoxetine HCL 60 MG CAPSULE.DR PO (20:48)
[2025-03-23] MEDS: ONDANSETRON INJ 4 MG/2 ML VIAL IV PUSH (20:49)
--- NOTE | 2025-03-23 20:59 | P.OP_ITS ---
Procedure Note - Detailed Date of Procedure 03/23/25 Pre-op Diagnosis ureteral lithiasis Post-op Diagnosis Same Procedure Performed cystoscopy, right retrograde pyelogram, right ureter stent placement Surgeon Dusty Rivera MD Anesthesia General Indications right ureteral stone, UTI, fever Findings right uretet stone, distal, + right hydro Description of Procedure Description of procedure: The patient was brought back to the operating room received a general anesthetic via LMA she was prepped and draped in standard surgical fashion in the dorsolithotomy position with Betadine scrub the genitalia. Care was taken to not Hyperflex or hyperextend any extremity all bony prominences were thoroughly padded she received IV antibiotics in the emergency room with Rocephin 1 g IV piggyback. After appropriate timeout and appropriate patient identifiers were used a 22 [place] cystoscope was inserted in urinary bladder endoscopy bladder systematic fashion there were no tumors, lesions, foreign bodies or stones within the urinary bladder. She had single orthotopic bilateral ureteral orifices in expected position. A 6 [place] open- ended catheter was threaded into the right ureteral orifice and a gentle retrogr mey pyelogram was performed to outline the collecting system the distal ureter was normal in caliber till the pelvis where the in the distal ureter there was a stone with moderate proximal hydronephrosis and hydroureter. A sensor wire was subsequently inserted and navigated past the stone up to the upper pole of the kidney. A 6 [place] variable length stent was then deployed over the wire good curl was seen fluoroscopically in the upper pole of the kidney and both fluoroscopically and endoscopically in the bladder. The bladder was drained all instruments and wires were removed and the patient was awoken and transferred to postoperative recovery in stable condition. There were no immediate complications. There was no family to speak with. Patient understands she will need definitive stone management with Dr. Moreno when infection has been treated. Implants right 6 Fr Variable length stent Estimated Blood Loss 0 Urine Output 600 Pathology None sent Complications No immediate complications Condition Stable Disposition PACU
--- NOTE | 2025-03-23 22:54 | PCRCNOTE ---
Pt refused BIPAP/CPAP with autotitrate. Pt said she does not use her at home.
[2025-03-24] MEDS: HYDROmorphone HCL INJ (*CRX) 2 MG/ML VIAL 0.5 MG IV PUSH ×2 (01:07→05:28)
[2025-03-24] MEDS: diphenhydrAMINE HCl INJ 50 MG/ML VIAL IV PUSH ×4 (01:07→13:20)
[2025-03-24] MEDS: ONDANSETRON INJ 4 MG/2 ML VIAL IV PUSH ×2 (01:07→05:28)
[2025-03-24] MEDS: LEVOTHYROXINE SODIUM 75 MCG TABLET PO (05:27)
[2025-03-24] MEDS: LEVOTHYROXINE SODIUM 100 MCG TABLET PO (05:28)
[2025-03-24] MEDS: SODIUM CHLORIDE 0.9% IV 1,000 ML 100 ML IV CONT (05:29)
[2025-03-24 05:36] VITALS: BP 102/86; PULSE 69; RESP 18; TEMP 36.4; O2SAT 97
[2025-03-24 05:39] LABS: Basophils Percent Auto 0.6 % (0.2-1.2); Eosinophils Percent Auto 0.3 % (0-4.4); Hematocrit 39.8 % (37.0-47.0); Hemoglobin 12.6 g/dL (12.0-15.0); Immature Granulocyte Absolute 0.02 K/mm3 (0.00-0.031); Immature Granulocyte Percent A 0.3 % (0-0.5); Lymphocytes Absolute Auto 1.67 K/mm3 (0.9-3.2); Mean Corpuscular HGB Conc 31.7 g/dl (32-36); Mean Corpuscular Hemoglobin 30.4 pg (26-34); Mean Corpuscular Volume 96.1 fl (80-100); Mean Platelet Volume 10.6 fl (7.4-10.4); Monocytes Absolute Auto 0.4 K/mm3 (0.1-0.6); Monocytes Percent Auto 6.3 % (2.6-8.5); Neutrophils Absolute Auto 4.8 K/mm3 (1.3-6.7); Neutrophils Percent Auto 68.5 % (45.5-73.1); Platelet Count Result 230 k/mm3 (150-375); Red Blood Count 4.14 M/mm3 (4.2-5.4)
[2025-03-24 05:49] LABS: Alanine Aminotransferase 27 U/L (6-35); Albumin Level 3.7 g/dL (3.5-5.1); Alkaline Phosphatase 58 U/L (38-126); Anion Gap 6 mmol/L (4-12); Aspartate Amino Transferase 31 U/L (14-36); Bilirubin,Total 0.4 mg/dL (0.2-1.3); Blood Urea Nitrogen 14 mg/dL (7-17); Calcium 9.1 mg/dL (8.4-10.2); Carbon Dioxide 25 mmol/L (22-30); Chloride 107 mmol/L (98-107); Estimated CRCL calculation 88 ml/min; Estimated Glomerular Filt Rate > 60; Glucose 113 mg/dL (65-110); Potassium 4.6 mmol/L (3.4-5.0); Sodium 138 mmol/L (137-145)
[2025-03-24] MEDS: GABAPENTIN 300 MG CAPSULE PO ×2 (08:17→13:21)
[2025-03-24] MEDS: TAMSULOSIN HCL 0.4 MG CAPSULE PO (08:17)
[2025-03-24] MEDS: SIMETHICONE 80 MG TAB.CHEW PO (08:21)
[2025-03-24] MEDS: oxyCODONE/ACETAMINOPHEN (*CRX) 5-325 MG TABLET 1 TABLET PO ×2 (09:12→13:20)
--- NOTE | 2025-03-24 09:29 | PM.IMPN ---
Progress Note: A&P Assessment and Plan (1) Ureteral calculus: Code(s): N20.1 - Calculus of ureter Status: Acute Assessment and Plan: Abd/pelvis CT: 1. Stone in the right lower ureter with moderate right hydronephrotic changes. -Cysto, R ureteroscopy, R stent placement performed on 03/23, reporting pain is * * * -->Pt reporting pain tolerable with pain meds (orals started today) and diphenhydramine -Continue ceftriaxone -UC no growth -BC pending -Uro rounds today pending -Straining urine ordered -Labs continue to be unremarkable Plan SCDs. Full code. Subjective Date/time seen: 03/24/25 Interval history: Pt is a 49-year-old female with a history of fibromyalgia, depression, anxiety, hysterectomy, gastric bypass, kidney stones x2 status post ureteroscopy with stent placement with Dr. Gonsales who presents to the ED on 03/22/2025 with a complaint of intermittent flank pain on her left which has migrated to her right for 2 weeks now. At the onset of symptoms she had dark brown urine however that has resolved. Admits to persistent urinary frequency but no pain upon urination. She had a low-grade fever 100.8? F a few days prior to admission. She denies any nausea or vomiting. She took Tylenol 3 and aspirin without any alleviation. ER workup revealed a hemodynamically stable female with a temperature 97.8? F. normal white count, hemoglobin 14.0, platelets 290, Chem panel largely unremarkable. Urinalysis with trace ketones, 1+ leukocyte esterase, WBC 21-50, CT abdomen pelvis without contrast demonstrating stone in the right lower ureter with moderate right hydronephrotic changes. She was given ceftriaxone, 1 L normal saline bolus, morphine 4 mg IV x1, Dilaudid 0.5 mg IV x1, Reglan, Zofran. On repeat examination she was resting comfortably and denying any significant pain. Urologist Dr. Rivera was contacted from the ER and agreed to see the patient in consultation. Agreed to starting antibiotics and the patient be kept NPO. 03/23: Upon examination today, pt reporting pain mostly in her R flank, some discomfort in her L but that has decreased since onset a few days ago. Pt reporting mild discomfort when she voids, but no dysuria. Denies any other sx including CP, SOB, or any other urinary sx. Pt mainly c/o of itchiness after getting IV pain meds, diphenhydramine adjusted to help with this. Pt remains NPO pending urology consult for plan. 03/24: Review of Systems Review of Systems: All systems reviewed & are unremarkable except as noted in HPI and below (HPI) Exam Const: General: comfortable and no acute distress Other: A&O x4 HENMT: Mouth: Yes moist mucous membranes Eyes: Pupils: Equal, round and reactive pupils present Neck: Neck: supple and no JVD Resp: Effort & Inspection: normal respiratory effort Auscultation: clear to auscultation bilaterally Cardio: Rate: regular rate Rhythm: regular rhythm GI: Inspection: non-distended Auscultation: normal bowel sounds : General: Yes bladder normal to palpation Bimanual exam- vagina & uterus: bladder normal to palpation Other: +R CVA TTP, none to L Neuro: Cranial nerves: Yes Equal, round and reactive pupils present Motor exam (neuro): 5/5 motor strength present throughout and Normal motor muscle tone present throughout Sensory Exam: normal sensation Extrem: General: no edema Objective Data Vital Signs Vital Signs: Vital Signs - 24 hr 03/23/25 14:39 03/23/25 15:11 03/23/25 20:00 Temperature 97.2 F L 97.1 F L Pulse Rate 79 77 77 Respiratory Rate 18 18 20 Blood Pressure 137/67 120/73 Pulse Oximetry 90 92 94 Oxygen Delivery Room Air Fraction of Inspired Oxygen 03/23/25 20:55 03/23/25 21:10 03/24/25 05:36 Temperature 98.2 F 97.6 F Pulse Rate 84 77 69 Respiratory Rate 16 20 18 Blood Pressure 122/71 102/86 Pulse Oximetry 94 94 97 Oxygen Delivery Room Air Fraction of Inspired Oxygen 03/24/25 08:15 Temperature Pulse Rate Respiratory Rate Blood Pressure Pulse Oximetry Oxygen Delivery Room Air Fraction of Inspired Oxygen Intake/Output Intake/Output: Intake & Output 03/21/25 03/22/25 03/23/25 03/24/25 23:59 23:59 23:59 23:59 Intake Total 2240 1840 Output Total 1700 Balance 540 1840 Meds/Results Medications: Active Medications Generic Name Dose Route Start Last Admin Trade Name Freq PRN Reason Stop Dose Admin Diphenhydramine HCl 50 mg 03/23/25 09:00 03/24/25 09:13 Diphenhydramine Hcl Inj 50 Mg/Ml Vial IV PUSH 50 mg Q4H PRN Administration Itching Duloxetine HCl 60 mg 03/23/25 21:00 03/23/25 20:48 Duloxetine Hcl 60 Mg Capsule.Dr PO 60 mg HS EZEQUIEL Administration Gabapentin 300 mg 03/23/25 09:00 03/24/25 08:17 Gabapentin 300 Mg Capsule PO 300 mg TID EZEQUIEL Administration Hydromorphone HCl 0.5 mg 03/23/25 01:30 03/24/25 05:28 Hydromorphone Hcl Inj (*Crx) 2 Mg/Ml Vial IV PUSH 0.5 mg Q4H PRN Administration Pain Rated 7-10 Ceftriaxone Sodium 1 gm in 50 mls @ 100 mls/hr 03/24/25 01:00 03/24/25 01:37 Rocephin 1 Gm/Ns 50 Ml IVPB Infused Q24H EZEQUIEL Infusion Sodium Chloride 1,000 mls @ 100 mls/hr 03/23/25 04:45 03/24/25 05:29 Normal Saline Iv IV CONT 100 mls/hr .Q10H EZEQUIEL Administration Levothyroxine Sodium 100 mcg 03/23/25 06:30 03/24/25 05:28 Levothyroxine Sodium 100 Mcg Tablet PO 100 mcg DAILY@0630 EZEQUIEL Administration Levothyroxine Sodium 75 mcg 03/23/25 06:30 03/24/25 05:27 Levothyroxine Sodium 75 Mcg Tablet PO 75 mcg DAILY@0630 [facility] Administration Ondansetron HCl 4 mg 03/23/25 01:30 03/24/25 05:28 Ondansetron Inj 4 Mg/2 Ml Vial IV PUSH 4 mg Q4H PRN Administration Nausea Oxycodone/Acetaminophen 1 tablet 03/24/25 08:51 03/24/25 09:12 Oxycodone/Acetaminophen (*Crx) 5-325 Mg Tablet PO 1 tablet Q4H PRN Administration Pain Rated 7-10 Simethicone 80 mg 03/23/25 04:35 03/24/25 08:21 Simethicone 80 Mg Tab.Chew PO 80 mg QID PRN Administration abdominal distention Tamsulosin HCl 0.4 mg 03/23/25 04:40 03/24/25 08:17 Tamsulosin Hcl 0.4 Mg Capsule PO 0.4 mg QAM EZEQUIEL Administration Trazodone HCl 100 mg 03/23/25 21:00 03/23/25 20:48 Trazodone Hcl 50 Mg Tablet PO 100 mg HS EZEQUIEL Administration Radiology Results: ITS Impressions Abdomen/Pelvis CT 03/22/25 23:14 IMPRESSION: 1. Stone in the right lower ureter with moderate right hydronephrotic changes. 2. No evidence of appendicitis, diverticulitis or intestinal obstruction. Retrograde Pyelogram 03/23/25 15:47 IMPRESSION: 1. Fluoroscopy utilized during likely right ureteral stone extraction and right internal ureteral stent placement which is in expected position. See procedure note for further detail. Labs Labs: Laboratory Results - last 24 hr 03/24/25 05:27 WBC 7.0 RBC 4.14 L Hgb 12.6 Hct 39.8 MCV 96.1 MCH 30.4 MCHC 31.7 L RDW 12.0 Plt Count 230 MPV 10.6 H Immature Gran % (Auto) 0.3 Neut % (Auto) 68.5 Lymph % (Auto) 24.0 [place] % (Auto) 6.3 Eos % (Auto) 0.3 Baso % (Auto) 0.6 Lymph # (Auto) 1.67 [place] # (Auto) 0.4 Eos # (Auto) 0.0 Baso # (Auto) 0.0 Abs Immat Gran (auto) 0.02 Absolute Neuts (auto) 4.8 Absolute Nucleated RBC 0.000 Nucleated RBC % 0.0 Sodium 138 Potassium 4.6 Chloride 107 Carbon Dioxide 25 Anion Gap 6 BUN 14 D Creatinine 0.68 L Estim Creat Clear Calc 88 Estimated GFR > 60 Glucose 113 H Calcium 9.1 Total Bilirubin 0.4 AST 31 ALT 27 Alkaline Phosphatase 58 Total Protein 6.0 L Albumin 3.7 Quality VTE Prophylaxis VTE prophylaxis: mechanical ordered
--- NOTE | 2025-03-24 10:46 | P.PNUR_ITS ---
Progress Note: A&P Assessment and Plan (1) Left ureteral calculus: Code(s): N20.1 - Calculus of ureter Status: Acute Assessment and Plan: Okay for discharge home from urologic standpoint. We will arrange outpatient stone management Home on pain med the sections as well as p.r.n. oxybutynin Subjective Subjective Date/Time Seen: 03/24/25 10:46 Review of Systems Review of Systems: Related discomfort noted. Urine culture has been ultimately negative. Exam Narrative: Resting comfortably. Right flank pain noted secondary to the stent as well as some bladder irritation Objective Data Vital Signs Vital Signs: Vital Signs - 24 hr 03/23/25 14:39 03/23/25 15:11 03/23/25 20:00 Temperature 97.2 F L 97.1 F L Pulse Rate 79 77 77 Respiratory Rate 18 18 20 Blood Pressure 137/67 120/73 Pulse Oximetry 90 92 94 Oxygen Delivery Room Air Fraction of Inspired Oxygen 03/23/25 20:55 03/23/25 21:10 03/24/25 05:36 Temperature 98.2 F 97.6 F Pulse Rate 84 77 69 Respiratory Rate 16 20 18 Blood Pressure 122/71 102/86 Pulse Oximetry 94 94 97 Oxygen Delivery Room Air Fraction of Inspired Oxygen 03/24/25 08:15 Temperature Pulse Rate Respiratory Rate Blood Pressure Pulse Oximetry Oxygen Delivery Room Air Fraction of Inspired Oxygen Intake/Output Intake/Output: Intake & Output 03/21/25 03/22/25 03/23/25 03/24/25 23:59 23:59 23:59 23:59 Intake Total 2240 1840 Output Total 1700 Balance 540 1840 Meds/Results Medications: Active Medications Generic Name Dose Route Start Last Admin Trade Name Freq PRN Reason Stop Dose Admin Diphenhydramine HCl 50 mg 03/23/25 09:00 03/24/25 09:13 Diphenhydramine Hcl Inj 50 Mg/Ml Vial IV PUSH 50 mg Q4H PRN Administration Itching Duloxetine HCl 60 mg 03/23/25 21:00 03/23/25 20:48 Duloxetine Hcl 60 Mg Capsule.Dr PO 60 mg HS EZEQUIEL Administration Gabapentin 300 mg 03/23/25 09:00 03/24/25 08:17 Gabapentin 300 Mg Capsule PO 300 mg TID EZEQUIEL Administration Hydromorphone HCl 0.5 mg 03/23/25 01:30 03/24/25 05:28 Hydromorphone Hcl Inj (*Crx) 2 Mg/Ml Vial IV PUSH 0.5 mg Q4H PRN Administration Pain Rated 7-10 Ceftriaxone Sodium 1 gm in 50 mls @ 100 mls/hr 03/24/25 01:00 03/24/25 01:37 Rocephin 1 Gm/Ns 50 Ml IVPB Infused Q24H EZEQUIEL Infusion Sodium Chloride 1,000 mls @ 100 mls/hr 03/23/25 04:45 03/24/25 05:29 Normal Saline Iv IV CONT 100 mls/hr .Q10H EZEQUIEL Administration Levothyroxine Sodium 100 mcg 03/23/25 06:30 03/24/25 05:28 Levothyroxine Sodium 100 Mcg Tablet PO 100 mcg DAILY@0630 EZEQUIEL Administration Levothyroxine Sodium 75 mcg 03/23/25 06:30 03/24/25 05:27 Levothyroxine Sodium 75 Mcg Tablet PO 75 mcg DAILY@0630 EZEQUIEL Administration Ondansetron HCl 4 mg 03/23/25 01:30 03/24/25 05:28 Ondansetron Inj 4 Mg/2 Ml Vial IV PUSH 4 mg Q4H PRN Administration Nausea Oxycodone/Acetaminophen 1 tablet 03/24/25 08:51 03/24/25 09:12 Oxycodone/Acetaminophen (*Crx) 5-325 Mg Tablet PO 1 tablet Q4H PRN Administration Pain Rated 7-10 Simethicone 80 mg 03/23/25 04:35 03/24/25 08:21 Simethicone 80 Mg Tab.Chew PO 80 mg QID PRN Administration abdominal distention Tamsulosin HCl 0.4 mg 03/23/25 04:40 03/24/25 08:17 Tamsulosin Hcl 0.4 Mg Capsule PO 0.4 mg QAM EZEQUIEL Administration Trazodone HCl 100 mg 03/23/25 21:00 03/23/25 20:48 Trazodone Hcl 50 Mg Tablet PO 100 mg HS EZEQUIEL Administration Radiology Results: ITS Impressions Abdomen/Pelvis CT 03/22/25 23:14 IMPRESSION: 1. Stone in the right lower ureter with moderate right hydronephrotic changes. 2. No evidence of appendicitis, diverticulitis or intestinal obstruction. Retrograde Pyelogram 03/23/25 15:47 IMPRESSION: 1. Fluoroscopy utilized during likely right ureteral stone extraction and right internal ureteral stent placement which is in expected position. See procedure note for further detail. Labs Labs: Laboratory Results - last 24 hr 03/24/25 05:27 WBC 7.0 RBC 4.14 L Hgb 12.6 Hct 39.8 MCV 96.1 MCH 30.4 MCHC 31.7 L RDW 12.0 Plt Count 230 MPV 10.6 H Immature Gran % (Auto) 0.3 Neut % (Auto) 68.5 Lymph % (Auto) 24.0 [place] % (Auto) 6.3 Eos % (Auto) 0.3 Baso % (Auto) 0.6 Lymph # (Auto) 1.67 [place] # (Auto) 0.4 Eos # (Auto) 0.0 Baso # (Auto) 0.0 Abs Immat Gran (auto) 0.02 Absolute Neuts (auto) 4.8 Absolute Nucleated RBC 0.000 Nucleated RBC % 0.0 Sodium 138 Potassium 4.6 Chloride 107 Carbon Dioxide 25 Anion Gap 6 BUN 14 D Creatinine 0.68 L Estim Creat Clear Calc 88 Estimated GFR > 60 Glucose 113 H Calcium 9.1 Total Bilirubin 0.4 AST 31 ALT 27 Alkaline Phosphatase 58 Total Protein 6.0 L Albumin 3.7
[2025-03-24] MEDS: oxyBUTYnin CHLORIDE 5 MG TABLET PO (11:57)
--- NOTE | 2025-03-24 12:12 | P.DS_ITS ---
DS: Admitting Diagnosis Discharge Date 03/24/2025 Admitting Diagnosis Kidney stones DS: Discharge Diagnosis Discharge Diagnosis (1) Ureteral calculus: Code(s): N20.1 - Calculus of ureter Status: Acute Assessment and Plan: Abd/pelvis CT: 1. Stone in the right lower ureter with moderate right hydronephrotic changes. 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 Gonsales who presents to the ED on 03/22/2025 with a complaint of intermittent flank pain on her left which has migrated to her right for 2 weeks now. At the onset of symptoms she had dark brown urine however that has resolved. Admits to persistent urinary frequency but no pain upon urination. She had a low-grade fever 100.8? F a few days prior to admission. She denies any nausea or vomiting. She took Tylenol 3 and aspirin without any alleviation. ER workup revealed a hemodynamically stable female with a temperature 97.8? F. normal white count, hemoglobin 14.0, platelets 290, Chem panel largely unremarkable. Urinalysis with trace ketones, 1+ leukocyte esterase, WBC 21-50, CT abdomen pelvis without contrast demonstrating stone in the right lower ureter with moderate right hydronephrotic changes. She was given ceftriaxone, 1 L normal saline bolus, morphine 4 mg IV x1, Dilaudid 0.5 mg IV x1, Reglan, Zofran. On repeat examination she was resting comfortably and denying any significant pain. Urologist Dr. Rivera was contacted from the ER and agreed to see the patient in consultation. Agreed to starting antibiotics and the patient be kept NPO. 03/23: Upon examination today, pt reporting pain mostly in her R flank, some discomfort in her L but that has decreased since onset a few days ago. Pt reporting mild discomfort when she voids, but no dysuria. Denies any other sx including CP, SOB, or any other urinary sx. Pt mainly c/o of itchiness after getting IV pain meds, diphenhydramine adjusted to help with this. Pt remains NPO pending urology consult for plan. 03/24: Upon examination today, pt reports that her pain in her R flank has decreased since intervention yesterday. Denies any other sx including CP, SOB, or any other urinary sx. Pt comfortable with the plan for D/C today with pain medication and oxybutynin. Pt to f/u with uro in the next few weeks. Status at Discharge Cognitive/behavioral status at discharge: stable Functional status at discharge: independent ambulation Overall status at discharge: patient is progressing back to baseline Time Spent with Patient Time attestation: Total time spent providing and/or coordinating discharge services: Exam Const: General: no acute distress Other: A&O x4 HENMT: Mouth: Yes moist mucous membranes Eyes: Pupils: Equal, round and reactive pupils present Neck: Neck: supple and no JVD Resp: Effort & Inspection: normal respiratory effort Auscultation: clear to auscultation bilaterally Cardio: Rate: regular rate Rhythm: regular rhythm GI: Inspection: non-distended Auscultation: normal bowel sounds : General: Yes bladder normal to palpation Bimanual exam- vagina & uterus: bladder normal to palpation Other: +R CVA TTP, none to L Skin: General skin exam: normal color and no rashes or lesions noted Wounds: no wounds Neuro: Cranial nerves: Yes Equal, round and reactive pupils present Motor exam (neuro): Normal motor muscle tone present throughout Sensory Exam: normal sensation Extrem: General: normal to inspection and no edema Psych: Mental Status: mental status grossly normal Affect: normal affect DS: Data Data Completed and Pending Labs on day of discharge: Labs from last 24 hours 03/24/25 05:27 WBC 7.0 RBC 4.14 L Hgb 12.6 Hct 39.8 MCV 96.1 MCH 30.4 MCHC 31.7 L RDW 12.0 Plt Count 230 MPV 10.6 H Immature Gran % (Auto) 0.3 Neut % (Auto) 68.5 Lymph % (Auto) 24.0 [place] % (Auto) 6.3 Eos % (Auto) 0.3 Baso % (Auto) 0.6 Lymph # (Auto) 1.67 [place] # (Auto) 0.4 Eos # (Auto) 0.0 Baso # (Auto) 0.0 Abs Immat Gran (auto) 0.02 Absolute Neuts (auto) 4.8 Absolute Nucleated RBC 0.000 Nucleated RBC % 0.0 Sodium 138 Potassium 4.6 Chloride 107 Carbon Dioxide 25 Anion Gap 6 BUN 14 D Creatinine 0.68 L Estim Creat Clear Calc 88 Estimated GFR > 60 Glucose 113 H Calcium 9.1 Total Bilirubin 0.4 AST 31 ALT 27 Alkaline Phosphatase 58 Total Protein 6.0 L Albumin 3.7 Preliminary micro results at discharge 03/23/25 02:07 Blood Culture - Preliminary Blood 03/23/25 02:07 Blood Culture - Preliminary Blood Discharge Plan Discharge Attending physician on discharge: Venita Ness Consulting providers: Dusty Rivera Discharging Clinician: Venita Ness Anticipated Discharge Date/Time: 03/24/25 16:00 Patient Disposition: Home Activity: may shower and as tolerated Diet: regular Discharge Instructions: 1. I wrote you a prescription for a limited dose of Percocet today for break through pain, takes these as needed. Urology also wanted you to go home with a prescription for a medication that should help with the stent discomfort, it is called Oxybutynin 5mg, you are to take this three times daily and then follow-up with the urology team for future care of your kidney stone. Patient Instructions: Antibiotic Form, Oxybutynin (By mouth), Oxycodone/Ac etaminophen (By mouth), Kidney Stones (GEN) Patient Language: Italian Stand Alone Forms: General Discharge Information Follow-up/Referrals: Dusty Rivera MD [Physician] - 2 Weeks [facility] [Primary Care Provider] - 2 Weeks Discharge Medications: New oxycodone-acetaminophen 5-325 mg Tablet 1 tablet PO Q4H PRN (Reason: Pain Rated 7-10) Qty: 12 0RF oxybutynin chloride 5 mg Tablet 5 mg PO TID 30 Days Qty: 90 0RF Continued levothyroxine [Euthyrox] 175 mcg tablet 175 mcg PO DAILY gabapentin 300 mg capsule 300 mg PO TID diphenhydramine HCl [Benadryl] 25 mg capsule 25 mg PO Q6H simethicone [Gas Relief (simethicone)] 80 mg tablet,chewable 80 mg PO QID PRN (Reason: abdominal distention) lidocaine 4 % gel 1 applic topical BID PRN (Reason: pain) Rx Instructions: left leg and back diclofenac sodium [Arthritis Pain (diclofenac)] 1 % gel 4 g topical QID PRN (Reason: pain) Rx Instructions: apply to left leg/back propranolol 20 mg tablet 20 mg PO Q12H PRN (Reason: anxiety) cyanocobalamin (vitamin B-12) 1,000 mcg/mL solution 1,000 mcg IM WEEKLY trazodone 100 mg Tablet 100 mg PO HS duloxetine 60 mg Capsule,Delayed Release(Dr/Ec) 60 mg PO HS tizanidine 4 mg Capsule 4 mg PO Q8H PRN (Reason: muscle spasms) Held acetaminophen-codeine 300-30 mg tablet 1 tablet PO Q6H Hold Instructions: Resume on 04/22/25. As discussed, do not take this at the same time as you are taking the Percocet. Date of admission: 03/23/25 01:30 Primary Care Provider: [facility]LORI Admitting Provider: Yecenia Bosch Attending physician on admission: Yecenia Bosch Condition: Stable Quality VTE Prophylaxis VTE prophylaxis: mechanical ordered Hospitalist MIPS Heart Failure (Exclusion) Patient has history of Heart Transplant or Left Ventricular Assistive Device?: No IF YES, STOP HERE Heart Failure (Qualifier) Patient has current or prior documentation of LVEF less than or equal to 40%, or mod/servere depressed LVSF?: No IF NO, STOP HERE
--- NOTE | 2025-03-24 14:14 | P.PNAN_ITS ---
Anes - Prog Note Post-Op Date/Time: 03/24/25 14:14 Cardiovascular status: normal Respiratory status: normal Airway patency: baseline Mental status: baseline Vital Signs: Last Vital Signs Temp 36.4 C 03/24/25 05:36 Pulse 69 03/24/25 05:36 Resp 18 03/24/25 05:36 BP 102/86 03/24/25 05:36 Pulse Ox 97 03/24/25 05:36 O2 Del Method Room Air 03/24/25 08:15 FiO2 21 03/23/25 21:10 Pain Score (VAS): 0 I/O: Intake & Output 03/23/25 03/24/25 03/24/25 23:59 07:59 15:59 Intake Total 240 1600 240 Output Total 1200 Balance -960 1600 240 Laboratory Tests 03/24/25 05:27 03/24/25 05:27 03/24/25 05:27 WBC 7.0 RBC 4.14 L Hgb 12.6 Hct 39.8 MCV 96.1 MCH 30.4 MCHC 31.7 L RDW 12.0 Plt Count 230 MPV 10.6 H Immature Gran % (Auto) 0.3 Neut % (Auto) 68.5 Lymph % (Auto) 24.0 [place] % (Auto) 6.3 Eos % (Auto) 0.3 Baso % (Auto) 0.6 Lymph # (Auto) 1.67 [place] # (Auto) 0.4 Eos # (Auto) 0.0 Baso # (Auto) 0.0 Abs Immat Gran (auto) 0.02 Absolute Neuts (auto) 4.8 Absolute Nucleated RBC 0.000 Nucleated RBC % 0.0 Sodium 138 Potassium 4.6 Chloride 107 Carbon Dioxide 25 Anion Gap 6 BUN 14 D Creatinine 0.68 L Estim Creat Clear Calc 88 Estimated GFR > 60 Glucose 113 H Calcium 9.1 Total Bilirubin 0.4 AST 31 ALT 27 Alkaline Phosphatase 58 Total Protein 6.0 L Albumin 3.7 Microbiology 03/22/25 18:38 Urine Clean Catch Urine Culture Reflexed - Final 03/23/25 02:07 Blood Blood Culture - Preliminary 03/23/25 02:07 Blood Blood Culture - Preliminary Patient Feedback: Patient satisfied with anesthetic care.
--- NOTE | 2025-03-25 13:25 | SUR.PHASEI ---
see downtime paper documentation for additional information
--- NOTE | 2025-03-31 07:27 | PC.NURSE ---
Blood cx show no growth.
== END 2025-03-24 14:50 | disposition home or self-care (01) ==
LOC: ANHED 03-23 01:29 → ANH2MED 03-23 01:52
PROVIDERS: Emergency Medicine; Urology; Admitting Provider General Practice; Emergency Provider Physician Assistant; Visit Provider General Practice
PROC: (CPT 52352; principal; 2025-03-24 13:00)
DX: N13.2 Hydronephrosis with renal and ureteral calculous obstruction (principal); R82.90 Unspecified abnormal findings in urine; M79.7 Fibromyalgia; F32.A Depression, unspecified; F41.9 Anxiety disorder, unspecified; Z98.84 Bariatric surgery status; Z79.899 Other long term (current) drug therapy; Z87.442 Personal history of urinary calculi; Z90.710 Acquired absence of both cervix and uterus
CPT/HCPCS: 52351; 52332; 36415; 74176; 74420; 80053; 81001; 83605; 83690; 83735; 85025; 85610; 87040; 87086; 96361; 96374; 96375; 99285; A9270; C1769; C2617; G0378; J0696; J1171; J1200; J2250; J2270; J2405; J2765; J3010; J7030; Q9966

== ENCOUNTER 2025-08-03 11:16 | Emergency (ER) | payer OTHER, SELFPAY ==
[2025-08-03 11:40] VITALS: BP 104/82; PULSE 82; RESP 20; TEMP 36.4; O2SAT 98
--- NOTE | 2025-08-03 13:11 | ED_ITS ---
HPI - General Adult General Chief complaint: Animal Bite Stated complaint: DOG BITE TO L HAND Time Seen by Provider: 08/03/25 12:59 History of Present Illness HPI narrative: Patient is a 50-year-old female presents emergency department with chief complaint of dog bite to left hand. Patient reports she was breaking up a fight between her dog and child's dog patient reports that she has a small puncture wound to the left hand reports that her tetanus is up-to-date reports that the dogs are immunized Related Data Home Medications ?Medication ?Instructions ?Recorded ?Confirmed ?Last Taken ?Type cyanocobalamin (vitamin B-12) 1,000 mcg IM WEEKLY 08/2303/23/25 03/04/25 History 1,000 mcg/mL injection solution duloxetine 60 mg capsule,delayed 60 mg PO HS 05/02/24 03/23/25 03/21/25 History release tizanidine 4 mg capsule 4 mg PO Q8H PRN muscle spasm s 05/02/24 03/23/25 05/01/24 History trazodone 100 mg tablet 100 mg PO HS 05/02/2403/21/25 History acetaminophen 300 mg-codeine 30 mg 1 tablet PO Q6H 11/1603/23/25 03/22/25 History tablet Held on 03/24/25. Instructions: Resume on 04/22/25. As discussed, do not take this at the same time as you are taking the Percocet. diclofenac sodium 1 % topical gel 4 g topical QID PRN pain 03/23/25 03/23/25 Unknown History (Arthritis Pain (diclofenac)) diphenhydramine HCl 25 mg capsule 25 mg PO Q6H 2 5 03/23/25 03/22/25 History (Benadryl) gabapentin 300 mg capsule 300 mg PO TID 03/23/2503/2303/22/25 History levothyroxine 175 mcg tablet 175 mcg PO DAILY 03/23/25 03/23/25 03/22/25 History (Euthyrox) lidocaine 4 % topical gel 1 applic topical BID PRN jackie n 03/23/25 03/23/25 Unknown History propranolol 20 mg tablet 20 mg PO Q12H PRN anxiety 03/23/25 Unknown History simethicone 80 mg chewable tablet 80 mg PO QID PRN abd ominal 03/23/25 03/23/25 Unknown History (Gas Relief (simethicone)) distention Allergies Allergy/AdvReac Type Severity Reaction Status Date / Time amoxicillin Allergy Hives Verified 08/03/25 11:17 divalproex sodium (From Allergy Hives Verified 08/03/25 11:17 Depakote) NSAIDS (Non-Steroidal AdvReac Unknown Verified 08/03/25 11:17 Anti-Inflamma pregabalin AdvReac severe Verified 08/03/25 11:17 migraine Review of Systems Review of Systems: A 10 system review of systems was completed on the patient and is negative except for what is stated in the HPI. Nursing and ancillary documentation was reviewed. [facility] Past Medical History Medical History History of renal stone Morbid obesity Rectocele Surgical History Surgical History Hx of cystoscopy History of section History of gastric bypass S/P gastric bypass H/O hysterectomy with oophorectomy Family History Family History Mother Hodgkin disease Father Lung cancer Other Patient's father is Patient's mother is Social History Social History Smoking status: Never smoker Alcohol intake: never Alcohol use details: denies Substance use: never Substance use type: does not use Do You Feel Safe in your Home?: Yes Lack of Transportation: No Lack of Food: Never True Current Housing: I Have Housing Concerned About Future Housing: No Difficulty Paying Gas/Electric Bills: No Difficulty Paying for Meds: No Currently Unemployed: No Education: High School Diploma/GED Difficulty w/ Childcare or Family Care: No Spiritual care concerns: No Exam Narrative: GENERAL: Well-appearing, well-nourished, and in no acute distress. HEAD: Normocephalic, atraumatic. EYES: PERRLA and EOMI. ENT: Nares clear, no rhinorrhea or epistaxis. Mucous membranes moist. NECK: Supple. CHEST: Clear to auscultation. No respiratory distress. HEART: Regular rate and rhythm. No murmur heard. Normal peripheral pulses. ABDOMEN: Soft, nontender, nondistended, normal active bowel sounds. EXTREMITIES: Normal range of motion. No edema. SKIN: Warm, dry, no rash. Multiple puncture wounds present to the palmar aspect of the left hand no bony tenderness NEURO: No focal deficits. Alert and oriented x3. PSYCH: Normal mood and affect. Course Vital Signs Vital signs: Vital Signs Temperature 36.4 C 08/03/25 11:40 Pulse Rate 82 08/03/25 11:40 Respiratory Rate 20 08/03/25 11:40 Blood Pressure 104/82 08/03/25 11:40 Pulse Oximetry 98 08/03/25 11:40 Temperature 36.4 C 08/03/25 11:40 Pulse Rate 82 08/03/25 11:40 Respiratory Rate 20 08/03/25 11:40 Blood Pressure 104/82 08/03/25 11:40 Pulse Oximetry 98 08/03/25 11:40 Medical Decision Making [facility] Narrative Medical decision making narrative: Differential diagnosis includes canine bite, Patient is up-to-date on her tetanus vaccine year dogs are immunized for rabies the patient does not require rabies vaccine. The patient has a history of allergy to amoxicillin the patient was started on doxycycline and Flagyl Vital Signs Vital Signs: Vital Signs Temperature 36.4 C 08/03/25 11:40 Pulse Rate 82 08/03/25 11:40 Respiratory Rate 20 08/03/25 11:40 Blood Pressure 104/82 08/03/25 11:40 Pulse Oximetry 98 08/03/25 11:40 Temperature 36.4 C 08/03/25 11:40 Pulse Rate 82 08/03/25 11:40 Respiratory Rate 20 08/03/25 11:40 Blood Pressure 104/82 08/03/25 11:40 Pulse Oximetry 98 08/03/25 11:40 Discharge Plan Discharge Clinical Impression: Dog bite of left hand Patient Disposition: Home Condition: Stable Instructions: Antibiotic Form, Animal Bite (ED) Patient Language: Spanish Prescriptions: New doxycycline hyclate 100 mg capsule 100 mg PO BID 7 Days Qty: 14 0RF metronidazole 500 mg tablet 500 mg PO Q8H 7 Days Qty: 21 0RF No Action levothyroxine [Euthyrox] 175 mcg tablet 175 mcg PO DAILY acetaminophen-codeine 300-30 mg tablet 1 tablet PO Q6H gabapentin 300 mg capsule 300 mg PO TID diphenhydramine HCl [Benadryl] 25 mg capsule 25 mg PO Q6H simethicone [Gas Relief (simethicone)] 80 mg tablet,chewable 80 mg PO QID PRN (Reason: abdominal distention) lidocaine 4 % gel 1 applic topical BID PRN (Reason: pain) Rx Instructions: left leg and back diclofenac sodium [Arthritis Pain (diclofenac)] 1 % gel 4 g topical QID PRN (Reason: pain) Rx Instructions: apply to left leg/back propranolol 20 mg tablet 20 mg PO Q12H PRN (Reason: anxiety) oxybutynin chloride 5 mg Tablet 5 mg PO TID 30 Days Qty: 90 0RF oxycodone-acetaminophen [Percocet] 5-325 mg tablet 1 tablet PO Q4H PRN (Reason: pain) Qty: 12 0RF cyanocobalamin (vitamin B-12) 1,000 mcg/mL solution 1,000 mcg IM WEEKLY trazodone 100 mg Tablet 100 mg PO HS duloxetine 60 mg Capsule,Delayed Release(Dr/Ec) 60 mg PO HS tizanidine 4 mg Capsule 4 mg PO Q8H PRN (Reason: muscle spasms) Follow-up/Referrals: [facility] [Primary Care Provider, Medical]
--- OUTSIDE RECORDS SUMMARY | 2025-08-03 13:15 | XMS_ITS | Clinical Summary ---
Author Organization [facility] Address [address] [place] [address] Phone Care Team Providers Care Music Executive Name Role Phone Unavailable Primary Care Provider Unavailabl e Encounters Date Type Department Care Team Description 05/22/2025 Telephone [facility] [address] [place] [address] Jesus Stanton MD from Last 3 Months Social History Tobacco Use Types Packs/Day Years Used Date Smoking Tobacco: Never Assessed Comments Unknown Sex and Gender Information Value Date Recorded Sex Assigned at Not on file Legal Sex Female 8:32 AM CDT Gender Identity Not on file Sexual Orientation Not on file Plan of Treatment Health Maintenance Due Date Last Done Comments Hepatitis C Virus (HCV) Screening 1976 Mammogram 1976 TdaP Immunization 1976 Hepatitis B Immunization (1 of 3 - 19+ 3-dose series) 1995 Pap Smear 1997 Cervical Cancer Screening (CCS) 2006 HPV/Cotest 2006 Discussion re Starting/Frequ ency of Mammograms 2016 Cologuard 2021 Colonoscopy 2021 Colorectal Cancer Screening 2021 Immunochemical Fecal Occult Blood 2021 Influenza Immunization (#1) 2025 SARS-COV-2 Immunization ( season) 2025 Respiratory Syncytial Virus (RSV) Immunization (Adult) (1 - 1-dose 75+ series) 2051 Human Papillomavirus (HPV) Immunization Aged Out No longer eligible b ased on patient's age to complete this topic Meningococcal Immunization (ACWY) Aged Out No longer eligible based on patient's age to complete this topic Pneumococcal Immunization Combined Aged Out No longer eligible based on patient's age to complete this topic Rotavirus Immunization Aged Out No lo nger eligible based on patient's age to complete this topic
--- OUTSIDE RECORDS SUMMARY | 2025-08-03 13:15 | XMS_ITS | Clinical Summary ---
Author Organization [address] Address [address] [place] [id number] Care Team Providers Care Back End Web Developer Name Role Phone Unavailable Primary Care Provider [...] Q 5 years 2021 INFLUENZA VACCINE (#1) 2025 Insurance [employer]
--- OUTSIDE RECORDS SUMMARY | 2025-08-03 13:15 | XMS_ITS | Clinical Summary ---
Author Organization [facility] Address [address] [place] [address] Care Team Providers Care Dumpling Machine Operator Name Role Phone Jose VINES MD, Cristian Jacob Primary Care Provider + Source Comments [facility],non-owned Affiliates and Associated Physician Practices is amultiple site organization consisting of ambulatory clinics and hospital sitesin [place], [place], [place] and [place]. This disclosure is being madepursuant to the Care Everywhere program and may not contain all information available regarding this patient. Last updated 18.[facility] Allergies Active Allergy Reactions Criticality Noted Date Comments Amoxicillin Urticaria Medium 06/13/2025 Rash, OSH record Fluticasone Other 06/13/2025 Nasal burning, OSH record Methocarbamol Headache 06/13/2025 Patient states does not believe is true allergy. OSH record Pantoprazole Urticaria Medium 06/13/2025 OSH record Pregabalin Other 06/13/2025 Drowsy, per OSH record Vitamin B12 Urticaria Medium 06/13/2025 Patient states allergy with oral, not with IV. OSH record Medications * Be aware that medications may not be up to date on this document. Alwaysverify current medications with the patient. vortioxetine (Trintellix) 5 MG tablet Take 2 (two) tablets by mouth once daily Active gabapentin (Neurontin) 300 MG capsule Take 1 (one) capsule by mouth 3 times daily Active levothyroxine (Synthroid) 175 MCG tablet Take 1 (one) tablet by mouth daily before breakfast 5 Active diclofenac sodium (Voltaren) 1 % gel Apply 2 (two) g to affected area 4 times daily as needed (pain) 5 Active diphenhydrAMINE (Benadryl Allergy) 25 MG capsule Take 1 (one) capsule by mouth every 6 hours as needed for Itching 5 Active traZODone (Desyrel) 100 MG tablet Take 1 (one) tablet by mouth at bedtime 4 Active tiZANidine (Zanaflex) 4 MG tablet Take 1 (one) tablet by mouth 3 times daily as needed for Muscle Spasms 4 Active oxyCODONE, immediate release, (Roxicodone) 5 MG tabletIndication s:Intractable headache, unspecified chronicity pattern, unspecified headache type Take 1 (one) tablet by mouth every 6 hours as needed 12 tablet 5 Active mupirocin (Bactroban) 2 % ointment Apply to affected area 2 times daily Please apply to your right nasal cavity twice per day for 5 days total 22 g 5 Active Active Problems Problem Noted Date Diagnosed Date Headache 06/14/2025 Assessment & Plan (06/15/2025 1:26 PM CDT): Pain regimen: tylenol 650mg q6h PRN, oxy 5 q6h PRN or oxy 10mg q6h ENT & NSGY consulted - Repeat CT facial bones - Beta 2 transferrin - Q4h neuro checks 06/14/2025: - Fioricet (butalbital-caffeine- acetaminophen) Q4 PRN added to the pain regimen of the patient. 06/15/2025: - Patient has been discharged on Fioricet, short supply of oxycodone 5mg, and bactorban with an outpatient follow up with ENT. Neurological surgery recommendations: - Per neurological surgery, MRI scan of the brain (with and without intravenous contrast) shows no signs of skull base lesions or intracranial hypotension or any deficits. Therefore, there is no indication for CT cisternogram. Recommend follow up with ENT for CSF leak evaluation with beta 2 transferring testing and f/u CT facial bones. -Continue to monitor neurologic exam q4h - Recommend B2-Transferrin - CSF leak precautions: - No nose blowing, sneezing, or valsalva - avoid bending over or lifting >10lbs - No heavy exertion or straining, advise stool softener - Avoid coughing; cough suppression PRN - Monitor for signs of CSF rhinorrhea, otorrhea, or postural headaches ENT recommendations: - Repeat CT facial bones (with stealth protocol) ordered. - B2- transferrin test Assessment & Plan (06/14/2025 1:32 PM CDT): Pain regimen: tylenol 650mg q6h PRN, oxy 5 q6h PRN or oxy 10mg q6h ENT & NSGY consulted - Repeat CT facial bones - Beta 2 transferrin - Q4h neuro checks 06/14/2025: - Fioricet (butalbital-caffeine- acetaminophen) Q4 PRN added to the pain regimen of the patient. Neurological surgery recommendations: - Per neurological surgery, MRI scan of the brain (with and without intravenous contrast) shows no signs of skull base lesions or intracranial hypotension or any deficits. Therefore, there is no indication for CT cisternogram. Recommend follow up with ENT for CSF leak evaluation with beta 2 transferring testing and f/u CT facial bones. -Continue to monitor neurologic exam q4h - Recommend B2-Transferrin - CSF leak precautions: - No nose blowing, sneezing, or valsalva - avoid bending over or lifting >10lbs - No heavy exertion or straining, advise stool softener - Avoid coughing; cough suppression PRN - Monitor for signs of CSF rhinorrhea, otorrhea, or postural headaches ENT recommendations: - Repeat CT facial bones (with stealth protocol) ordered. - B2- transferrin test Assessment & Plan (06/14/2025 6:36 AM CDT): Pain regimen: tylenol 650mg q6h PRN, oxy 5 q6h PRN or oxy 10mg q6h ENT & NSGY consulted - Repeat CT facial bones - Beta 2 transferrin - Q4h neuro checks - CSF leak precautions: - No nose blowing, sneezing, or valsalva - avoid bending over or lifting >10lbs - No heavy exertion or straining, advise stool softener - Avoid coughing; cough suppression PRN - Monitor for signs of CSF rhinorrhea, otorrhea, or postural headaches Hypothyroid 06/14/2025 Assessment & Plan (06/15/2025 11:54 AM CDT): - continue home levothyroxine 175 mcg\ Assessment & Plan (06/14/2025 1:32 PM CDT): - continue home levothyroxine 175 mcg\ Assessment & Plan (06/14/2025 6:36 AM CDT): - continue home levothyroxine 175 mcg Mood disorder 06/14/2025 Assessment & Plan (06/15/2025 11:54 AM CDT): - continue home: trazodone 100mg qnight, vortioxetine 10mg qday - hold home propranolol Assessment & Plan (06/14/2025 8:01 AM CDT): - continue home: trazodone 100mg qnight, vortioxetine 10mg qday - hold home propranolol Assessment & Plan (06/14/2025 6:36 AM CDT): - continue home: trazodone 100mg qnight, vortioxetine 10mg qday - hold home propranolol Insomnia 06/14/2025 Assessment & Plan (06/15/2025 11:54 AM CDT): - continue home: trazodone 100mg qnight, vortioxetine 10mg qday - hold home propranolol Assessment & Plan (06/14/2025 8:01 AM CDT): - continue home: trazodone 100mg qnight, vortioxetine 10mg qday - hold home propranolol Assessment & Plan (06/14/2025 6:36 AM CDT): - continue home: trazodone 100mg qnight, vortioxetine 10mg qday - hold home propranolol CSF rhinorrhea 06/13/2025 Assessment & Plan (06/15/2025 1:26 PM CDT): Pain regimen: tylenol 650mg q6h PRN, oxy 5 q6h PRN or oxy 10mg q6h ENT & NSGY consulted - Repeat CT facial bones - Beta 2 transferrin - Q4h neuro checks 06/14/2025: - Fioricet (butalbital-caffeine- acetaminophen) Q4 PRN added to the pain regimen of the patient. 06/15/2025: - Patient has been discharged on Fioricet, short supply of oxycodone 5mg, and bactorban with an outpatient follow up with ENT. Neurological surgery recommendations: - Per neurological surgery, MRI scan of the brain (with and without intravenous contrast) shows no signs of skull base lesions or intracranial hypotension or any deficits. Therefore, there is no indication for CT cisternogram. Recommend follow up with ENT for CSF leak evaluation with beta 2 transferring testing and f/u CT facial bones. -Continue to monitor neurologic exam q4h - Recommend B2-Transferrin - CSF leak precautions: - No nose blowing, sneezing, or valsalva - avoid bending over or lifting >10lbs - No heavy exertion or straining, advise stool softener - Avoid coughing; cough suppression PRN - Monitor for signs of CSF rhinorrhea, otorrhea, or postural headaches ENT recommendations: - Repeat CT facial bones (with stealth protocol) ordered. - B2- transferrin test Assessment & Plan (06/14/2025 1:32 PM CDT): Pain regimen: tylenol 650mg q6h PRN, oxy 5 q6h PRN or oxy 10mg q6h ENT & NSGY consulted - Repeat CT facial bones - Beta 2 transferrin - Q4h neuro checks 06/14/2025: - Fioricet (butalbital-caffeine- acetaminophen) Q4 PRN added to the pain regimen of the patient. Neurological surgery recommendations: - Per neurological surgery, MRI scan of the brain (with and without intravenous contrast) shows no signs of skull base lesions or intracranial hypotension or any deficits. Therefore, there is no indication for CT cisternogram. Recommend follow up with ENT for CSF leak evaluation with beta 2 transferring testing and f/u CT facial bones. -Continue to monitor neurologic exam q4h - Recommend B2-Transferrin - CSF leak precautions: - No nose blowing, sneezing, or valsalva - avoid bending over or lifting >10lbs - No heavy exertion or straining, advise stool softener - Avoid coughing; cough suppression PRN - Monitor for signs of CSF rhinorrhea, otorrhea, or postural headaches ENT recommendations: - Repeat CT facial bones (with stealth protocol) ordered. - B2- transferrin test Assessment & Plan (06/14/2025 6:36 AM CDT): Pain regimen: tylenol 650mg q6h PRN, oxy 5 q6h PRN or oxy 10mg q6h ENT & NSGY consulted - Repeat CT facial bones - Beta 2 transferrin - Q4h neuro checks - CSF leak precautions: - No nose blowing, sneezing, or valsalva - avoid bending over or lifting >10lbs - No heavy exertion or straining, advise stool softener - Avoid coughing; cough suppression PRN - Monitor for signs of CSF rhinorrhea, otorrhea, or postural headaches Encounters Date Type Department Care Team Description 06/16/2025 Telephone [facility] - ENT [address] [place] [address] Elaina Key 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 INTER[facility] [address] [place] [address] Navdeep Lowe MD General (OSH Transfer) from Last 3 Months Social History Tobacco Use Types Packs/Day Years Used Date Smoking Tobacco: Never Passive Smoke Exposure: Never Smokeless Tobacco: Never Tobacco Cessation:Counseling Given: No Alcohol Use Standard Drinks/Week Comments Not Currently 0 (1 standard drink = 0.6 oz pur e alcohol) AUDIT-C Answer Date Recorded Q1: How often do you have a drink containing alcohol? Never 06/13/2025 Q2: How many drinks containi ng alcohol do you have on a typical day when you are drinking? Patient does not drink Q3: How often do you have si x or more drinks on one occasion? Never 06/13/2025 Overall Financial Resource Strain (CARDIA) Answe r Date Recorded How hard is it for you to pa y for the very basics like food, housing, medical care, and heating? Not hard at all 06/14/2025 [facility] - Occupational Stress Questionnaire Answer Date Recorded Do you feel stress - tense, restless, nervous, or anxious, or unable to sleep at night because your mind is troubled all the time - these days? Not at all 06/14/2025 Hunger Vital Sign Answer Date Recorded Within the past 12 months, y ou worried that your food would run out before you got the money to buy more. Never true 06/14/20 25 Within the past 12 months, t he food you bought just didn't last and you didn't have money to get more. Never true 06/14/2025 PRAPARE - Transportation Answer Date Re corded In the past 12 months, has l ack of transportation kept you from medical appointments or from getting medications? No 05/24 In the past 12 months, has l ack of transportation kept you from meetings, work, or from getting things needed for daily living? No 06/14/2025 Housing Stability Vital Sign Answer Isaac e Recorded In the last 12 months, was t here a time when you were not able to pay the mortgage or rent on time? No 06/14/2025 Number of Times Moved in the Last Year Not on fi le 06/14/2025 At any time in the past 12 m [facility], were you homeless or living in a correction (including now)? 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 Gender Identity Female 04/04/2022 3:18 PM CDT Sexual Orientation Straight 04/04/2022 3: 18 PM CDT Last Filed Vital Signs Vital Sign Reading Time Taken Comments Blood Pressure 122/70 06/15/2025 12:00 PM CDT Pulse 64 06/15/2025 12:00 PM CDT Temperature 36.7 C (98.1 F) 06/15/2025 12:00 PM CDT Respiratory Rate 18 06/15/2025 4:03 AM CDT Oxygen Saturation 100% 06/15/2025 12:00 PM CDT Inhaled Oxygen Concentration - - Weight 77.1 kg (170 lb) 06/14/2025 6:40 PM CDT Height 157.5 cm (5' 2) 06/14/2025 6:40 PM CDT Body Mass Index 31.09 06/14/2025 6:40 PM CDT Plan of Treatment Health Maintenance Due Date Last Done Comments COLOGUARD (AGES 45-75) - COLON CA SCREENING 1976 COLON MONITORING 1976 COLONOSCOPY - COLON CA SCREENING 1976 CT COLONOGRAPHY - COLON CA SCREENING 1976 Colorectal Cancer Screening 1976 FIT - COLON CA SCREENING 1976 FLEX SIG - COLON CA SCREENING 1976 MAMMOGRAM 1976 HIV SCREENING 1991 HEPATITIS C SCREENING 07/14/1994 DTAP/TDAP/TD VACCINES (1 - Tdap) 1995 HEPATITIS B VACCINE (1 of 3 - 19+ 3-dose series) 1995 PAP SMEAR 1997 DEPRESSION SCREENING 10/23/2024 COVID-19 VACCINE (3 - season) 2025 03/31/2021, 03/10/2021 INFLUENZA VACCINE (#1) 2025 7, 09/22/2015, 08/30/2013, Additional history exists ZOSTER VACCINE (1 of 2) 2026 LIPID TESTING 08/05/2026 08/05/2021 HIB VACCINE Aged Out No longer eligi ble based on patient's age to complete this topic HPV VACCINE Aged Out No longer eligi ble based on patient's age to complete this topic MENINGOCOCCAL (Group B) VACCINE SHARED DECISION-MAKING Aged Out No longer eligible based on patient's age to complete this topic MENINGOCOCCAL GROUPS A/C/Y/W VACCINE Aged Out No longer eligible based on patient's age to complete this topic Procedures Procedure Name Priority Date/Time Associated Diagnosis Comments CBC W/O DIFFERENTIAL AM Draw 06/15/2025 5:10 AM CDT BASIC METABOLIC PANEL (CALCIUM TOTAL) AM Draw 06/15/2025 5:10 AM CDT PHOSPHORUS BLOOD AM Draw 06/15/2025 5:10 AM CDT MAGNESIUM BLOOD AM Draw 06/15/2025 5:[address] FACIAL BONES WO CONTRAST Routine 06/14/2025 5:24 PM CDT CSF rhinorrhea CBC W/O DIFFERENTIAL AM Draw 06/14/2025 5:10 AM CDT BASIC METABOLIC PANEL (CALCIUM TOTAL) AM Draw 06/14/2025 5:10 AM CDT PHOSPHORUS BLOOD AM Draw 06/14/2025 5:10 AM CDT MAGNESIUM BLOOD AM Draw 06/14/2025 5:10 AM CDT from Last 3 Months Results * CBC W/O DIFFERENTIAL (06/15/2025 5:10 AM CDT) Only the most recent of2 resultswithin the time period is included. WBC 4.8 4.0 - 10.7 x10E9/L 06/15/2025 6:37 AM CDT [facility] RBC Count 4.23 3.90 - 5.20 x10E12/L 06/15/2025 6:37 AM CDT [facility] Hemoglobin 12.7 11.9 - 15.8 g/dL 06/15/2025 6:37 AM CDT [facility] Hematocrit 38.4 34.8 - 46.1 % 06/15/2025 6:37 AM CDT [facility] MCV 90.8 80.0 - 98.0 fL 06/15/2025 6:37 AM CDT [facility] MCH 30.0 26.7 - 33.6 pg 06/15/2025 6:37 AM [facility] MCHC 33.1 31.7 - 36.3 g/dL 06/15/2025 6:37 AM [facility] RDW-CV 12.0 11.3 - 14.8 % 06/15/2025 6:37 AM [facility] Platelet Count 244 150 - 420 x10E9/L 06/15/2025 6:37 AM [facility] MPV 10.9 7.8 - 11.4 fL 06/15/2025 6:37 AM [facility] Blood BLOOD SPECIMEN / Unknown Lab Venipuncture / Unknown 06/15/2025 5:10 AM CDT 06/15/2025 6:00 AM T us Navdeep Lowe MD LAB - HEMATOLOGY ORDERABLE S Final Result [address] [address], [facility] [phone] * (ABNORMAL) BASIC METABOLIC PANEL (CALCIUM TOTAL) (06/15/2025 5:10 AM CDT) Only the most recent of2 resultswithin the time period is included. BUN 16 7 - 26 mg/dL 06/15/2025 6:34 AM [facility] Creatinine 0.68 0.56 - 0.96 mg/dL 06/15/2025 6:34 AM [facility] Sodium 141 136 - 145 mmol/L 06/15/2025 6:34 AM [facility] Potassium 3.7 3.5 - 4.5 mmol/L 06/15/2025 6:34 AM [facility] Chloride 107 98 - 107 mmol/L 06/15/2025 6:34 AM [facility] CO2 27 22 - 29 mmol/L 06/15/2025 6:34 AM [facility] Glucose 86 70 - 99 mg/dL 06/15/2025 6:34 AM [facility] Calcium 8.9 8.4 - 10.2 mg/dL 06/15/2025 6:34 AM [facility] Anion Gap 7 6 - 16 06/15/2025 6:34 AM CDT [facility] BUN/Creatinine Ratio 24(H) 7 - 23 06/15/2025 6:34 AM T [facility] Osmolality Calculated 292 275 - 295 mOsm/kg 06/15/2025 6:34 AM CDT [facility] eGFR by CKD-EPI >90 >=90 mL/min/1.7 3 m2 06/15/2025 6:34 AM T [facility] Comment:Estimated Glomerular Filtration Rate (eGFR) calculated using the CKD-EPI Creatinine Equation (2020), per the National Kidney Foundation and [employer] recommendations. Blood BLOOD SPECIMEN / Unknown Lab Venipuncture / Unknown 06/15/2025 5:10 AM CDT 06/15/2025 6:03 AM CDT Navdeep Lowe MD LAB - CHEMISTRY ORDERABLES Final Result Performing Organization Address City/[facility]/ZIP Co de Phone Number [address] [address], [facility] [phone] * PHOSPHORUS BLOOD (06/15/2025 5:10 AM CDT) Only the most recent of2 resultswithin the time period is included. Phosphorus 4.0 2.9 - 5.1 mg/dL 06/15/2025 6:34 AM CDT [facility] Blood BLOOD SPECIMEN / Unknown Lab Venipuncture / Unknown 06/15/2025 5:10 AM CDT 06/15/2025 6:03 AM CDT Navdeep Lowe MD LAB - CHEMISTRY ORDERABLES Final Result [address] [address], [place] [phone] * MAGNESIUM BLOOD (06/15/2025 5:10 AM CDT) Only the most recent of2 resultswithin the time period is included. Magnesium 2.0 1.6 - 2.6 mg/dL 06/15/2025 6:34 AM CDT [facility] Blood BLOOD SPECIMEN / Unknown Lab Venipuncture / Unknown 06/15/2025 5:10 AM CDT 06/15/2025 6:03 AM CDT Navdeep Lowe MD LAB - CHEMISTRY ORDERABLES Final Result [facility] [address] [place] [address], [facility] [phone] * CT Facial Bones Wo Contrast (06/14/2025 5:24 PM CDT) Anatomical Region Laterality Modality Head Computed Tomogra phy 06/14/2025 5:42 PM CDT Impressions 06/14/2025 7:19 PM CDT IMPRESSION: Please note that this is a stereotactic CT of the facial bones for preoperative planning. 1.There could be a bony defect in the left cribriform plate of ethmoid bone, (series 5, image 56). 2.Otherwise, no acute facial bone fractures identified. > Dictated by Dorian Adkins MD (Healthcare Technician), 06/14/2025 5:44 PM. > Dictated by Healthcare Technician I, Toño Avalos MD have personally reviewed and interpreted this examination/study. > Interpreting Provider: Toño Avalos MD on 06/14/2025 7:19 PM Narrative 06/14/2025 7:19 PM CDT PROCEDURE: CT FACIAL BONES WO CONTRAST, DATE/TIME OF EXAM: 06/14/2025 5:28 PM, LOCATION [facility] INDICATION: G96.01: CSF rhinorrhea ADDITIONAL CLINICAL INFORMATION: Ordering Provider Reason For Exam: C/F CSF leak Technologist Note: Stealth Protocol. To include entire brain, anabel Aranda after discussion with ENT service Additional: MRI reviewed and no signs of intracranial hypotension. No signs of skull base lesions or deficits. No indication for CT cisternogram. Recommend follow up with ENT for CSF leak evaluation with beta 2 transferring testing and f/u CT facial bones. Please call back with any questions. ADDITIONAL CLINICAL INFORMATION: Ordering Provider Reason For Exam: C/F CSF leak EXAMINATION: Computed tomography (CT) of the maxillofacial bones, orbits, and paranasal sinuses without contrast TECHNIQUE: CT of the maxillofacial bones, orbits, and paranasal sinuses was performed without intravenous contrast according to stereotactic protocol. COMPARISON: No prior study is available for comparison at the time of this dictation. FINDINGS: Please note that this is a stereotactic CT of the facial bones for preoperative planning. No soft tissue abnormality is identified. There could be a bony defect in the left cribriform plate of ethmoid bone, (series 5, image 56). Acute facial bone fracture. The orbits including the globes, optic nerves, retrobulbar fat and extraocular muscles appear normal. The paranasal sinuses are clear. Small mucous retention versus polyp in the right maxillary sinus. Bilateral nasal snui bullosa. The hard palate, mandible, and temporomandibular joints appear normal. The mastoid air cells are clear. The visualized portions of the brain appear grossly unremarkable. Procedure Note Toño Avalos MD - 06/14/2025 PROCEDURE: CT FACIAL BONES WO CONTRAST, DATE/TIME OF EXAM: :28 PM, LOCATION [facility] INDICATION: G96.01: CSF rhinorrhea ADDITIONAL CLINICAL INFORMATION: Ordering Provider Reason For Exam: C/F CSF leak Technologist Note: Stealth Protocol. To include entire brain, anabel Aranda after discussion with ENT service Additional: MRI reviewed and no signs of intracranial hypotension. No signs of skull base lesions or deficits. No indication for CTcisternogram. Recommend follow up with ENT for CSF leak evaluation with beta 2 transferring testing and f/u CT facial bones. Please call back with any questions. ADDITIONAL CLINICAL INFORMATION: Ordering Provider Reason For Exam: C/F CSF leak EXAMINATION: Computed tomography (CT) of the maxillofacial bones,orbits, and paranasal sinuses without contrast TECHNIQUE: CT of the maxillofacial bones, orbits, and paranasal sinuseswas performed without intravenous contrast according to stereotacticprotocol. COMPARISON: No prior study is available for comparison at the time ofthis dictation. FINDINGS: Please note that this is a stereotactic CT of the facial bones for preoperative planning. No soft tissue abnormality is identified. There could be a bony defectin the left cribriform plate of ethmoid bone, (series 5, image 56). Acute facial bone fracture. The orbits including the globes, optic nerves, retrobulbar fat and extraocular muscles appear normal. The paranasal sinuses are clear.Small mucous retention versus polyp in the right maxillary sinus. Bilateralnasal suni bullosa. The hard palate, mandible, and temporomandibular joints appear normal. The mastoid air cells are clear. The visualized portionsof the brain appear grossly unremarkable. IMPRESSION: Please note that this is a stereotactic CT of the facial bones for preoperative planning. 1.There could be a bony defect in the left cribriform plate of ethmoid bone, (series 5, image 56). 2.Otherwise, no acute facial bone fractures identified. > Dictated by Dorian Adkins MD (Healthcare Technician), 06/14/2025 5:44 PM. > Dictated by Healthcare Technician I, Toño Avalos MD have personally reviewed and interpretedthis examination/study. > Interpreting Provider: Toño Avalos MD on 06/14/2025 7:19 PM Cristian Garcia III, MD CT ORDERABLES Final Re sult from Last 3 Months Insurance [facility] Advance Directives * Full Code (Latest Code Status on File) Date Activated Date Inactivated Comments 06/13/2025 10:39 PM 06/15/2025 3:58 PM Care Teams Dumpling Machine Operator Relationship Specialty Start Date End Date Cristian Garcia III, MD [address] [facility] [place] [address] PCP - General Internal Medicine 06/27/25
--- OUTSIDE RECORDS SUMMARY | 2025-08-03 13:15 | XMS_ITS | Encounter Summary ---
Author Organization [facility] Address [address] [place] [address] Phone Care Team Providers Care Air Analysis Engineering Technician Name Role Phone Rjaesh Remy NP Primary Care Provider [phone] Rajesh Remy NP Primary Care Provider [phone] Luzmaria Ba MD Primary Care Provider [phone] [facility], [facility] Primary Care Provide r Unavailable Luzmaria Ba MD Unavailable [phone] Rajesh Remy NP Primary Care Provider [phone] Uche Williamson MD Unavailable [phone] Mere Granados MD Unavailable [phone] Asuncion Lyle MD Primary Care Provid er Asuncion Lyle MD Primary Care Provid er No, Physician Primary Care Provider [phone] Asuncion Lyle MD Primary Care Provid er Bert Calderon PT Unavailable [phone] Encounter Details Date Type Department Care Team (Latest Contact Info) Description 02/13/2018 Orders Only [facility] CONVERSION Scanning, Provider Social History Tobacco Use Types Packs/Day Years Used Date Smoking Tobacco: Never Comments Unknown Sex and Gender Information Value Date Recorded Sex Assigned at Not on file Legal 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 Gender Identity Not on file Sexual Orientation [...] COVID: Suspected 09/08/2022 09/08/2022 09/08/2022 5:59 PM METER TECHNICIAN documented as of this encounter Care Teams Air Analysis Engineering Technician Relationship Specialty Start Date End Date Rajesh Remy NP PCP - General 02/13/18 03/07/18 Rajesh Remy NP PCP - General 03/08/18 03/22/18 Luzmaria Ba MD PCP - General 03/23/18 02/27/19 Sahra Amos MD PCP - General Assistance Representative 02/28/19 05/29/19 Rajesh Remy NP PCP - General Nurse Practitioner 05/30/19 05/10/20 Mere Granados MD [address] [phone] [place] [address] PCP - Gastroenterology Gastroenterology 06/07/1908/09 Asuncion Lyle MD [address] [phone] [place] [address] PCP - General 06/12/20 06/17/21 Asuncion Lyle MD [address] [phone] [place] [address] PCP - General 05/11/20 06/11/20 Lovely Physician PCP - General 07/31/21 06/28/22 Asuncion Lyle MD [address] [place] [address] PCP - General Family Practice 06/29/22 Luzmaria Ba MD Referring Physician Obstetrics and Gynecology 03/13/19 Uche Williamson MD [address] [phone] [place] [address] Referring Physician Gynecologic Oncology 06/07/19 [place] [address] [place] [address] Physical Therapist Physical Therapy 12/02/22 12/02/22 RAJESH REMY NP [facility] [address] [facility] [address] Referring Physician Internal Medicine 05/30/19 documented as of this encounter
--- OUTSIDE RECORDS SUMMARY | 2025-08-03 13:15 | XMS_ITS | Clinical Summary ---
Author Organization [facility] Address [address] [place] [address] Care Team Providers Care Dry Yard Worker Name Role Phone Luzmaria Ba MD Unavailable [phone] Uche Williamson MD Unavailable Asuncion Lyle MD [...] tabletIndications: hypothyroidism Take 150 mcg by mouth tooling supervisor before breakfast Active diphenhydrAMINE (BENADRYL) 25 [...] DAILY NEEDED FOR PAIN 05/08/20 24 Active Active Problems Problem Noted Date Diagnosed Date Nausea and vomiting 11/26/2023 Morbid (severe) obesity due to excess calories 0 06/08/2023 Morbid obesity 05/09/2023 Heartburn 12/06/2022 Overview (01/11/2023): Added automatically from request for surgery [id number] Cataplexy 06/29/2022 Restless legs 06/29/2022 Psychophysiological insomnia [...] without status migrainosus, not intract able 10/06/2020 [place] eye disease 10/06/2020 Primary hypothyroidism 10/06/2020 Right ankle sprain 10/06/2020 Sprain of left foot 10/06/2020 Swelling of tonsil 10/06/2020 Systemic viral illness 10/06/2020 Adnexal cyst 06/20/2019 Overview (06/20/2019): Added automatically from request for surgery [id number] Urgency incontinence 03/09/2018 Bilateral myofascial pain 03/08/2018 Frequent urination 03/08/2018 Dysuria 09/20/2016 Surgical follow-up care 09/20/2016 Pelvic pain 07/09/2016 Abdominal pain Resolved Problems Problem Noted Date Diagnosed Date Resolved Date BMI 50.0-59.9, adult 06/29/2022 024 Increased urinary frequency 03/08/2018 04/04/2018 Ovarian cystic mass 02/13/2018 04/04/20 18 Pelvic mass in female 02/13/20182017 Encounters Date Type Department Care Team Description 07/29/2025 5:44 PM CDT - 07/29/2025 11:59 PM CDT Hospital Encounter [facility] [address] [place] [address] Discharge Disposition: Discharge to home or self care 07/25/2025 2:33 PM CDT - 07/25/2025 11:59 PM CDT Hospital Encounter [facility] [address] [place] [address] Discharge Disposition: Discharge to home or self care 06/27/2025 Telephone [facility] Scheduling [address] [place] [address] Edda Serrano from Last 3 Months Surgical History Surgery Date Site/Laterality Comments [place] DCMPRN FASCT LEG ANT&/LAT COMPARTMENTS ONLY 1996, 2006 Left Leg Decompression Fasciotomy Anterior Compartment - (Added by TW Conv) LEFT OOPHORECTOMY 10/23/2017 - 10/22/2018 Left laparoscopic SECTION 1998, 2000, 2003 LEG SURGERY POLYPECTOMY 10/23/2014 - 10/22/2015 URETERAL STENT PLACEMENT 10/23/2016 - 10/22/2017 HYSTERECTOMY 10/23/2015 - 10/22/2016 [place] UNLISTED PROCEDURE BREAST 10/23/2014 - 10/22/2015 ABDOMINAL [...] diarrhea COPD (chronic obstructive pu lmonary disease) Diverticulitis of colon Fibromyalgia, primary Fractures Peptic ulcer disease Irritable bowel syndrome Joint pain Kidney stone Low back pain Morbid obesity (HCC) Sleep apnea Thyroid disease Urinary incontinence Vitamin D deficiency Other complications of anest hesia, sequela High tolerance to Anesthesi a, Planned block anesthesia for C-Sections required conversion over to general anesthesia Nausea and vomiting 11/26/2023 Family History Medical History Relation Name Comments 22y , jerking motions after T&A in 2017 at [facility] Daughter Crohn's disease Daughter Family histo [...] (Added by TW Conv) Heart disease Sister 1 January Family history of cardiac disorder - (Added by TW Conv) Lupus Sister 2 Family history of systemic lupus erythematosus - (Added by TW Conv) Relation Name Status Comments Brother Alive Daughter Alive Father Juanita Mother Diyva Other 1 Other 2 Paternal Grandmother Sister 1 January Alive Sister 2 Alive Social History [...] on file 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 Gender Identity Not on file Sexual Orientation [...] <65 (1 of 2 - PCV) 1995 Influenza Vaccine (#1) 2025 7, 09/08/2016, 09/22/2015, Additional history exists DTaP/Tdap/Td Vaccine (3 - Td or Tdap) 09/19/2034 09/19/2024, 08/18/2010 Medical Devices Implanted Type Area Airfield Operations Specialist Device Identifier Shelf Expiration Date Model / Serial / Lot [employer] Bariatric Peristrip Non Crosslinked Bovine Pericardium For Endo Marcelina Thin [id number] - Sn/A - [id number] Implanted:Qty: 1 on 06/08/2023 by Bert Rankin MD at [facility] Other - see comments N/A: Abdomen [employer] 11/02/2023 [id number] / N/A / [id number] Description:Hannah strip [employer] Bariatric Peristrip Non Crosslinked Bovine Pericardium For Endo Marcelina Thin [id number] - Sn/A - [id number] Implanted:Qty: 1 on 06/08/2023 by Bert Rankin MD at [facility] Other - see comments N/A: Abdomen [employer] 11/02/2023 [id number] THN / N/A / [id number] Description:Hannah strip Procedures Procedure Name Priority Date/Time Associated Diagnosis Comments NEURO MR OUTSIDE REFERENCE Routine 07/29/2025 5:[address] OUTSIDE REFERENCE Routine 07/25/2025 2:33 PM CDT from Last 3 Months Results * Neuro MR Outside Reference (07/29/2025 5:44 PM CDT) Impressions [facility] - 07/29/2025 5:44 PM CDT These images are for Reference purposes only and have not been reviewed by [facility]. There will be no report generated by a [facility] Radiologist. Narrative [facility] - 07/29/2025 5:44 PM CDT EXAMINATION: Images For Reference Purposes Only us Anabel Valentino CERTIFIED GENETIC COUNSELOR IMG MRI PROCEDURES Final Resul t Performing Organization Address [facility] Co de Phone Number [facility] * Neuro CT Outside Reference (07/25/2025 2:33 PM CDT) Impressions [facility] - 07/25/2025 2:33 PM CDT These images are for Reference purposes only and have not been reviewed by [facility] Radiology. There will be no report generated by a [facility] Radiologist. Narrative [facility] - 07/25/2025 2:33 PM CDT EXAMINATION: Images For Reference Purposes Only Anabel Valentino CERTIFIED GENETIC COUNSELOR IMG CT PROCEDURES Final Result Performing Organization Address City/[facility] Co de Phone Number [facility] from Last 3 Months Insurance [facility] [place] [address] [facility] Advance Directives For more information, please contact: [phone] * Full Code (Latest Code Status on [...] 4:09 AM 08/06/2021 7:43 PM Care Teams Dry Yard Worker Relationship Specialty Start Date End Date Asuncion Lyle MD [address] [place] [address] PCP - General Family Practice 06/29/22 Luzmaria Ba MD Referring Physician Obstetrics and Gynecology 03/13/19 Uche Williamson MD [address] [phone] [place] [address] Referring Physician Gynecologic Oncology 06/07/19 RAJESH MONK NP [address] [address] Referring Physician Internal Medicine 05/30/19
== END 2025-08-03 13:44 | disposition home or self-care (01) ==
PROVIDERS: Emergency Provider Emergency Medicine
DX: S61.452A Open bite of left hand, initial encounter (principal); W54.0XXA Bitten by dog, initial encounter; Z98.84 Bariatric surgery status; Z90.710 Acquired absence of both cervix and uterus
CPT/HCPCS: 99283